=== PATIENT | female | born 1960 | race Two or more races ===

== ENCOUNTER 2017-05-02 18:20 | Inpatient (IN) | payer OTHER ==
--- NOTE | 2017-05-02 19:12 | PDOC ---
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 RBS 200 today. VSS - temp 98.2 Will order labs/ blood culture/ Xray foot/ 05/02/17 19:12
[2017-05-02 21:09] LABS: BASO % 0.2 % (0-2.0); EOS % 1.9 % (0-4.5); HEMATOCRIT 29.9 % (32.4-45.2); HEMOGLOBIN 10.2 GM/dL (10.7-15.3); LYMPH % 22.3 % (8-40); MEAN CELL VOLUME 88.3 fl (80-96); MEAN PLT VOLUME 8.6 fl (7.5-11.1); MONO % 7.8 % (3.8-10.2); NEUT % 67.8 % (42.8-82.8); PLATELET COUNT 245 K/MM3 (134-434); RBC 3.39 M/mm3 (3.60-5.2); RDW 13.4 % (11.6-15.6); WHITE BLOOD COUNT 11.1 K/mm3 (4.0-10.0)
[2017-05-02 21:44] LABS: URINE APPEARANCE SLCLOUDY; URINE BILIRUBIN NEGATIVE (NEGATIVE); URINE BLOOD NEGATIVE (NEGATIVE); URINE COLOR YELLOW; URINE GLUCOSE (UA) 3+ (NEGATIVE); URINE KETONE NEGATIVE (NEGATIVE); URINE NITRITE NEGATIVE (NEGATIVE); URINE PROTEIN NEGATIVE (NEGATIVE); URINE UROBILINOGEN NEGATIVE mg/dL (0.2-1.0)
[2017-05-02 21:45] LABS: URINE LEUK ESTERASE 3+ (NEGATIVE)
[2017-05-02 22:02] LABS: ALBUMIN 3.1 g/dl (3.4-5.0); ANION GAP 5 (8-16); BLOOD UREA NITROGEN 16 mg/dL (7-18); CALCIUM 8.6 mg/dL (8.5-10.1); CHLORIDE 100 mmol/L (98-107); CO2 31 mmol/L (21-32); CREATININE 0.6 mg/dL (0.55-1.02); GLUCOSE,RANDOM 224 mg/dL (74-106); POTASSIUM 4.1 mmol/L (3.5-5.1); SGOT/AST 8 U/L (15-37); SGPT/ALT 13 U/L (12-78); SODIUM 136 mmol/L (136-145)
[2017-05-02 22:03] LABS: ALK PHOS 92 U/L (45-117); BILIRUBIN,TOTAL 0.7 mg/dL (0.2-1.0); TOT PROT 7.1 g/dl (6.4-8.2)
[2017-05-02 22:54] LABS: EPI CELLS RARE /HPF (FEW); URINE MUCUS RARE
--- NOTE | 2017-05-03 00:18 | PDOC ---
History of Present Illness - General History Source: Patient Exam Limitations: No Limitations - History of Present Illness Initial Comments: 05/03/17 02:56 The patient is a 56 year old female, with a significant past medical history of IDDM, HTN, Genital Herpes who presents to the emergency department with L 2nd toe infection for the past week. Patient reports L toe began turning black with pain and swelling. Patient was admitted to [facility] for potential amputation 6 days ago however left AMA. Today, patient reports pain has worsened and radiates up into L thigh. Patient also notes her skin is dryer than usual around the area. Patient endorses fevers/chills and presents to the ED for further evaluation. Patient denies chest pain, headache or dizziness. Patient denies abdominal pain, nausea, vomit, diarrhea or constipation. Patient denies dysuria, frequency, urgency or hematuria. Patient denies sick contacts or recent travel. Allergies: Iodine contrast Vascular Surgeon @ [facility]: Heriberto Dey <Juany Rider - Last Filed: 05/03/17 02:56> - General History Source: Patient <Loli Coombs - Last Filed: 05/03/17 07:13> - General Chief Complaint: Wound Infection Stated Complaint: BLOOD IN URINE Time Seen by Provider: 05/02/17 19:06 Past History <Juany Rider - Last Filed: 05/03/17 02:56> - Past Medical History COPD: No Diabetes: Yes HTN: Yes Other medical history: genital herpez - Suicide/Smoking/Psychosocial Hx Smoking History: Never smoked Information on smoking cessation initiated: No Hx Alcohol Use: No Drug/Substance Use Hx: No Substance Use Type: None <Loli Coombs - Last Filed: 05/03/17 07:13> - Past Medical History Allergies/Adverse Reactions: Allergies Allergy/AdvReac Type Severity Reaction Status Date / Time Iodinated Contrast- Oral and Allergy Verified 05/02/17 19:06 IV Dye Review of Systems - Review of Systems Able to Perform ROS?: Yes Comments:: 05/03/17 02:56 CONSTITUTIONAL: +fever, chills Absent: no fatigue EYES: Absent: visual changes ENT: Absent: ear pain, no sore throat CARDIOVASCULAR: Absent: chest pain, no palpitations RESPIRATORY: Absent: cough, no SOB GI: Absent: abdominal pain, no nausea, no vomiting, no constipation, no diarrhea GENITOURINARY: Absent: dysuria, no frequency, no hematuria MUSCULOSKELETAL: +L leg infection. Absent: back pain, no arthralgia, no myalgia SKIN: Absent: rash NEURO: Absent: headache <Juany Rider - Last Filed: 05/03/17 02:56> *Physical Exam - Vital Signs Last Vital Signs Temp Pulse Resp BP Pulse Ox 98.2 F 85 18 132/90 100 05/02/17 19:07 05/02/17 19:07 05/02/17 19:07 05/02/17 19:07 05/02/17 19:07 <Juany Rider - Last Filed: 05/03/17 02:56> - Vital Signs Last Vital Signs Temp Pulse Resp BP Pulse Ox 98.2 F 85 18 132/90 100 05/02/17 19:07 05/02/17 19:07 05/02/17 19:07 05/02/17 19:07 05/02/17 19:07 - Physical Exam General Appearance: Yes: Nourished. No: Apparent Distress, Disheveled HEENT: positive: Normal Voice, Symmetrical Neck: negative: Tender, Trachea midline Respiratory/Chest: positive: Lungs Clear, Normal Breath Sounds Cardiovascular: positive: Regular Rhythm, Regular Rate Vascular Pulses: Dorsalis-Pedis (R): 2+, Doralis-Pedis (L): 2+ Gastrointestinal/Abdominal: positive: Soft. negative: Tender Musculoskeletal: positive: Normal Inspection, CVA Tenderness Extremity: positive: Other (+ linear healing scar to medial aspect of L leg, + tiny puncture site to R groin which is clean dry and without erythema/exudate) Integumentary: positive: Normal Color, Dry, Warm. negative: Cyanotic Neurologic: positive: cloth examiner II-XII NML intact, Fully Oriented, Alert <Loli Coombs - Last Filed: 05/03/17 07:13> ED Treatment Course - LABORATORY CBC & Chemistry Diagram: 05/02/17 20:53 05/02/17 20:53 - ADDITIONAL ORDERS Additional order review: Laboratory Results 05/02/17 05/02/17 21:01 20:53 Sodium 136 Potassium 4.1 Chloride 100 Carbon Dioxide 31 Anion Gap 5 L BUN 16 Creatinine 0.6 Creat Clearance w eGFR > 60 Random Glucose 224 H Calcium 8.6 Total Bilirubin 0.7 AST 8 L ALT 13 Alkaline Phosphatase 92 Total Protein 7.1 Albumin 3.1 L Urine Color Yellow Urine Appearance Slcloudy Urine pH 5.0 Ur Specific [place] 1.018 Urine Protein Negative Urine Glucose (UA) 3+ H Urine Ketones Negative Urine Blood Negative Urine Nitrite Negative Urine Bilirubin Negative Urine Urobilinogen Negative Ur Leukocyte Esterase 3+ H Urine WBC (Auto) 95 Urine RBC (Auto) 9 Ur Epithelial Cells Rare Urine Mucus Rare 05/02/17 20:53 RBC 3.39 L MCV 88.3 MCHC 34.0 RDW 13.4 MPV 8.6 Neutrophils % 67.8 Lymphocytes % 22.3 Monocytes % 7.8 Eosinophils % 1.9 Basophils % 0.2 <Juany Rider - Last Filed: 05/03/17 02:56> - LABORATORY CBC & Chemistry Diagram: 05/02/17 20:53 05/02/17 20:53 - ADDITIONAL ORDERS Additional order review: Laboratory Results 05/02/17 05/02/17 21:01 20:53 Sodium 136 Potassium 4.1 Chloride 100 Carbon Dioxide 31 Anion Gap 5 L BUN 16 Creatinine 0.6 Creat Clearance w eGFR > 60 Random Glucose 224 H Calcium 8.6 Total Bilirubin 0.7 AST 8 L ALT 13 Alkaline Phosphatase 92 Total Protein 7.1 Albumin 3.1 L Urine Color Yellow Urine Appearance Slcloudy Urine pH 5.0 Ur Specific [place] 1.018 Urine Protein Negative Urine Glucose (UA) 3+ H Urine Ketones Negative Urine Blood Negative Urine Nitrite Negative Urine Bilirubin Negative Urine Urobilinogen Negative Ur Leukocyte Esterase 3+ H Urine WBC (Auto) 95 Urine RBC (Auto) 9 Ur Epithelial Cells Rare Urine Mucus Rare 05/02/17 20:53 RBC 3.39 L MCV 88.3 MCHC 34.0 RDW 13.4 MPV 8.6 Neutrophils % 67.8 Lymphocytes % 22.3 Monocytes % 7.8 Eosinophils % 1.9 Basophils % 0.2 <Loli Coombs - Last Filed: 05/03/17 07:13> Medical Decision Making - Medical Decision Making 05/03/17 01:53 Pt is vasculopath, recent bypass surgery of LLE (months ago but had an "extension" 5 days ago whereby she underwent R groin access), hx of great toe amputation on L foot presenting with dry gangrene to her 2nd digit. AMA'ed from [facility] yesterday because one of the surgeons stated that he was going to cut her foot or leg off and she panicked and left the hospital. Has had worsening pain in the foot over the past 2 days. +subjective fever/chills, nausea. No vomiting , abd pain. Will admit, vasc consult inpatient. 05/03/17 07:[address] Hawkins - will admit to [facility] for gangrene/vasc consult. <Loli Coombs - Last Filed: 05/03/17 07:13> *DC/Admit/Observation/Transfer - Attestations Scribe Attestion: 05/03/17 02:56 Documentation prepared by Juany Rider, acting as medical pathology teacher for Loli Coombs DO <Juany Rider - Last Filed: 05/03/17 02:56> - Discharge Dispostion Admit: Yes <Loli Coombs - Last Filed: 05/03/17 07:13> Diagnosis at time of Disposition: Gangrene
--- NOTE | 2017-05-03 07:58 | HP ---
CHIEF COMPLAINT: "My toe is black" PCP: None, nachodemetrius like to be referred to clinic Vascular Surgeon @ [facility]: Heriberto Dey HISTORY OF PRESENT ILLNESS: This is a 56 yo F, with PMH of severe PAD s/p bypass and recent stents, possible LLE DVT, IDDM, HTN and genital herpes, who presents due to L 2nd toe infection and gangrene x 1 mo. She initially had a LLE bypass (possibly fem-pop based on scar) and 1st L toe amputation at [facility] in January but was admitted there a week ago due to L 2nd toe dry gangrene. On tue she underwent perc intervention, likely with stent placement, which restored circulation to L foot. There was plan for amputation of toe but patient did not like the surgeon so she left AMA. While at [facility] she was on heparin gtt. Over the pat 24 hr at home she has only taken an aspirin 325. Since her PCI the gangrene has not progressed and the surrounding tissue on foot feels better (less pain, less numbness, less redness, still edematous). She reports subjective f/c as well as pelvic and RUQ pain, especially after meals for the past 24 hrs. Of note, she is allergic to iodine contrast (hives) and state that prior to her PCI she received prednisone and benadryl, which seemed to prevent a reaction but caused hyperglycemia. She has not been seen by a PCP in years since visiting one in [place], was referred to a doctor by [facility] but has not followed up yet. She has not had a!c checked in years but states her morning sugars are usually in the 100's unless she is on prednisone She denies CP, h/a, sob, cough, palpitations, n/v, diarrhea. ER course was notable for: (1)labs (2)foot x ray Recent Travel: denies PAST MEDICAL HISTORY: as above PAST SURGICAL HISTORY: as above, uterine biopsy Social History: lives with sister, not moving to [place] any time soon Smoking: heavy past smoker 40 pack yr Alcohol: 2 drinks/w Drugs: denies Family History: DM, HTN, HLD, CAD, uterine CA Allergies Iodinated Contrast- Oral and IV Dye Allergy (Verified 05/02/17 19:06) HOME MEDICATIONS: REVIEW OF SYSTEMS CONSTITUTIONAL: Absent: diaphoresis, generalized weakness, loss of appetite, weight change HEENT: Absent: rhinorrhea, nasal congestion, throat pain CARDIOVASCULAR: Absent: chest pain, syncope, palpitations, irregular heart rate, lightheadedness RESPIRATORY: Absent: cough, shortness of breath, hemoptysis GASTROINTESTINAL: Absent:abdominal distension, nausea, vomiting, diarrhea, constipation, melena, hematochezia GENITOURINARY: Absent: dysuria, flank pain MUSCULOSKELETAL: Absent: back pain, neck pain SKIN: Absent: rash, itching, pallor HEMATOLOGIC/IMMUNOLOGIC: Absent: easy bleeding, easy bruising, frequent infections ENDOCRINE: Absent: unexplained weight gain, unexplained weight loss NEUROLOGIC: Absent: headache, focal weakness or paresthesias PSYCHIATRIC: Absent: anxiety, depression PHYSICAL EXAMINATION Vital Signs - 24 hr 05/02/17 19:07 Temperature 98.2 F Pulse Rate 85 Respiratory 18 Rate Blood Pressure 132/90 O2 Sat by Pulse 100 Oximetry (%) GENERAL: Awake, alert, and fully oriented, in no acute distress. HEAD: Normal with no signs of trauma. EYES: Pupils equal, round and reactive to light, extraocular movements intact, sclera anicteric, conjunctiva clear. No lid lag. EARS, NOSE, THROAT: Moist mucous membranes. NECK: supple no bruits LUNGS: Breath sounds equal, clear to auscultation bilaterally. HEART: Regular rate and rhythm, normal S1 and S2 grade II systolic murmur ABDOMEN: Soft, moderately tender suprapubic and RUW, + murphys, not distended, reduced bowel sounds, no guarding, no mass, no inguinal bruising, R inguinal swelling, healed perc incision site. No bruits MUSCULOSKELETAL: No CVA tenderness. UPPER EXTREMITIES: 2+ pulses, warm, well-perfused. No cyanosis. No clubbing. No peripheral edema. LOWER EXTREMITIES: RLE 2+ DP, warm, well-perfused. No calf tenderness. No peripheral edema. LLE 1+ DP, s/o 1st toe amputation, 2nd toe dry, black, cool, no drainage or odor. Foot is warm, well-perfused 1+ edema, tender to palpation up to distal thigh. Medial healed surgical scar from proximal thigh to proximal calf NEUROLOGICAL: Cranial nerves II-XII grossly intact. Normal speech. PSYCHIATRIC: Cooperative. Good eye contact. Appropriate mood and affect. SKIN: Warm, dry Laboratory Results - last 24 hr 05/02/17 05/02/17 05/02/17 20:53 20:53 21:01 WBC 11.1 H RBC 3.39 L Hgb 10.2 L Hct 29.9 L MCV 88.3 MCH 30.0 MCHC 34.0 RDW 13.4 Plt Count 245 MPV 8.6 Neutrophils % 67.8 Lymphocytes % 22.3 Monocytes % 7.8 Eosinophils % 1.9 Basophils % 0.2 Sodium 136 Potassium 4.1 Chloride 100 Carbon Dioxide 31 Anion Gap 5 L BUN 16 Creatinine 0.6 Creat Clearance w eGFR > 60 Random Glucose 224 H Calcium 8.6 Total Bilirubin 0.7 AST 8 L ALT 13 Alkaline Phosphatase 92 Total Protein 7.1 Albumin 3.1 L Urine Color Yellow Urine Appearance Slcloudy Urine pH 5.0 Ur Specific [place] 1.018 Urine Protein Negative Urine Glucose (UA) 3+ H Urine Ketones Negative Urine Blood Negative Urine Nitrite Negative Urine Bilirubin Negative Urine Urobilinogen Negative Ur Leukocyte Esterase 3+ H Urine WBC (Auto) 95 Urine RBC (Auto) 9 Ur Epithelial Cells Rare Urine Mucus Rare ASSESSMENT/PLAN: This is a 56 yo F, with PMH of severe PAD s/p bypass January, LLE stents this Wed at [facility], possible LLE DVT, IDDM, HTN and genital herpes, who presents due to L 2nd toe infection and gangrene x 1 mo. PAD with L 2nd toe dry gangrene -s/p bypass DEC (fem/pop crista) and likely stents on Tue at [facility]; circuylation restored 1+ DP and symptomatic improvement -toe not salvageable, requires amputation; f/u vascular -no evidence of acute tissue infection, mild leukocytosis 11 w/o left shift likely inflammatory; gave prophylactic Vanc/cefepime dose -give Asa, plavix and start Hep gtt for now pending LE imaging -f/u LLE x rays, arterial and venous US -coags, type/screen -NPO after midnight for possible OR -if patient needs angio, will give Prednisone+benadryl before iodine contrast administration RUQ pain -may have ischemic component or may be extension of tissue swelling/tenderness from R perc done on Wed -f/u RUQ US IDDM -hold po agents -BGM ACHS, ISS -A1c HTN -resume coreg, norvasc FEN -NS @ 75 -lytes stable -diabetic diet, npo after midnight -on hep -adm m/s Problem List - Problem (1) PAD (peripheral artery disease) Code(s): I73.9 - PERIPHERAL VASCULAR DISEASE, UNSPECIFIED (2) HTN (hypertension) Code(s): I10 - ESSENTIAL (PRIMARY) HYPERTENSION (3) IDDM (insulin dependent diabetes mellitus) Code(s): E11.9 - TYPE 2 DIABETES MELLITUS WITHOUT COMPLICATIONS; Z79.4 - RETIREMENT (CURRENT) USE OF INSULIN (4) Gangrene of toe of left foot Code(s): I96 - GANGRENE, NOT ELSEWHERE CLASSIFIED (5) Ischemic foot pain at rest Code(s): I73.9 - PERIPHERAL VASCULAR DISEASE, UNSPECIFIED (6) Gangrene Code(s): I96 - GANGRENE, NOT ELSEWHERE CLASSIFIED Visit type - Emergency Visit Emergency Visit: Yes ED Registration Date: 05/03/17 Care time: The patient presented to the Emergency Department on the above date and was hospitalized for further evaluation of their emergent condition. - New Patient This patient is new to me today: Yes Date on this admission: 05/03/17 - Critical Care Critical Care patient: No Hospitalist Screening - Colonoscopy Questionnaire Colonoscopy Questionnaire: Colonoscopy Questionnaire - Patient: 50 - 75 years old and never had a screening colonoscopy: Yes History of colon or rectal polyps, or CA: No History of IBD, Crohn's disease or UC: No History of abdominal radiation therapy as a child: No - Relative: 1 with colon or rectal CA, or polyps at age 60 or younger: No Colon or rectal CA diagnosed at age 45 or younger: No Multiple relatives with colon or rectal CA: No - Outcome: Screening Result: Positive Screen
[2017-05-03] MEDS ORDERED: VANCOMYCIN 1,250 MG in DEXTROSE 5%-WATER - 250 ML IVPB ONE (08:29)
[2017-05-03] MEDS ORDERED: CEFEPIME 2 GM in DEXTROSE 5%-WATER - 100 ML IVPB ONE (08:30)
[2017-05-03] MEDS ORDERED: oxyCODONE HCL 5 MG TABLET PO PRN (08:31)
[2017-05-03] MEDS ORDERED: HEPARIN NA (PORCINE) 5,000 UNITS/ML 1ML VIAL IVPUSH PRN (08:38)
[2017-05-03] MEDS ORDERED: VANCOMYCIN 1,250 MG in SODIUM CHLORIDE 250 ML IVPB ONE (08:43)
[2017-05-03] MEDS: SODIUM CHLORIDE 1,000 ML IV SCH (09:20)
[2017-05-03] MEDS ORDERED: ASPIRIN 81 MG CHEWABLE TABLETS ONE (11:51)
[2017-05-03] MEDS ORDERED: CARVEDILOL 3.125 MG TABLET (FP) ONE (11:52)
[2017-05-03] MEDS ORDERED: amLODIPine BESYLATE 5 MG TABLET (FP) ONE (11:52)
[2017-05-03] MEDS ORDERED: CLOPIDOGREL BISULFATE 75 MG TABLET (FP) ONE (11:53)
[2017-05-03] MEDS ORDERED: HEPARIN INFUSION - 25,000 UNITS/500 ML INFUS.BAG IVPB ONE (11:53)
[2017-05-03] MEDS ORDERED: HEPARIN NA (PORCINE) 5,000 UNITS/ML 1ML VIAL ONE (11:53)
[2017-05-03] MEDS: HEPARIN - 25,000 UNIT in SODIUM CHLORIDE 495 ML IV SCH (12:30)
[2017-05-03] MEDS: HEPARIN NA (PORCINE) 5,000 UNITS/ML 1ML VIAL IVPUSH PRN (12:30)
[2017-05-03] MEDS: amLODIPine BESYLATE 5 MG TABLET (FP) PO SCH (12:31)
[2017-05-03] MEDS: CLOPIDOGREL BISULFATE 75 MG TABLET (FP) PO SCH (12:31)
[2017-05-03] MEDS: ASPIRIN 81 MG CHEWABLE TABLETS PO SCH (12:31)
[2017-05-03] MEDS: CARVEDILOL 6.25 MG TABLET (FP) PO SCH ×2 (12:31→21:59)
--- NOTE | 2017-05-03 13:41 | PN ---
Teaching Attending Note Name of Resident: Michelle Luna ATTENDING PHYSICIAN STATEMENT I saw and evaluated the patient. I reviewed the resident's note and discussed the case with the resident. I agree with the resident's findings and plan as documented. SUBJECTIVE: This is a 56 year old woman with a history of PAD with lower extremity bypass and stents, IDDM, HTN, genital herpes who comes to the ED complaining of painful gangrenous left 2nd toe. She had bypass of her left leg and amputation of her left 1st toe 01/30 at [facility]. She developed pain in her left foot with gangrene of her left 2nd toe and was admitted at [facility] last week. She says she had "extensions" put in her left leg and her left foot improved. Amputation of the left 2nd toe was recommended and she left AMA yesterday. She also reports RUQ abdominal pain unrelated to meals which radiates to her left side. OBJECTIVE: Vital Signs Period Temp Pulse Resp BP Sys/Zhang Pulse Ox Last 24 Hr 98.2 F 82-85 18-20 126-132/68-90 100-100 HEART: S1S2, RRR LUNGS: Clear ABDOMEN: Soft, non-distended, (+) RUQ and epigastric tenderness, normal BS EXTREMITIES: s/p amputation of left 1st toe, left 2nd toe gangrenous, left 3rd- 5th toes erythematous, weak left DP pulse Laboratory Tests 05/02/17 05/02/17 05/02/17 20:53 20:53 21:01 WBC 11.1 H RBC 3.39 L Hgb 10.2 L Hct 29.9 L MCV 88.3 MCH 30.0 MCHC 34.0 RDW 13.4 Plt Count 245 MPV 8.6 Neutrophils % 67.8 Lymphocytes % 22.3 Monocytes % 7.8 Eosinophils % 1.9 Basophils % 0.2 Sodium 136 Potassium 4.1 Chloride 100 Carbon Dioxide 31 Anion Gap 5 L BUN 16 Creatinine 0.6 Creat Clearance w eGFR > 60 Random Glucose 224 H Calcium 8.6 Total Bilirubin 0.7 AST 8 L ALT 13 Alkaline Phosphatase 92 Total Protein 7.1 Albumin 3.1 L Urine Color Yellow Urine Appearance Slcloudy Urine pH 5.0 Ur Specific [place] 1.018 Urine Protein Negative Urine Glucose (UA) 3+ H Urine Ketones Negative Urine Blood Negative Urine Nitrite Negative Urine Bilirubin Negative Urine Urobilinogen Negative Ur Leukocyte Esterase 3+ H Urine WBC (Auto) 95 Urine RBC (Auto) 9 Ur Epithelial Cells Rare Urine Mucus Rare Home Medications Medication Instructions Recorded Amlodipine Besylate [Norvasc -] 5 mg PO DAILY 05/03/17 Aspirin [ASA -] 81 mg PO DAILY 05/03/17 Carvedilol [Coreg] 6.25 mg PO BID 05/03/17 Glipizide 5 mg PO DAILY 05/03/17 Insulin (Novolog) [Novolog -] 8 unit SQ AM 05/03/17 ASSESSMENT AND PLAN: This is a 56 year old woman with a history of PAD with lower extremity bypass and stents, IDDM, HTN, genital herpes who presents to the ED complaining of painful gangrenous left 2nd toe. 1. Gangrene of left 2nd toe secondary to PAD with history of left 1st toe amputation, LLE bypass in 01/2017 - Heparin IV drip started - Aspirin, Plavix restarted - Vascular studies - Vascular surgery consult 2. RUQ and epigastric abdominal pain - Gall bladder US 3. IDDM - Hold Glipizide - Fingersticks with Novolog sliding scale - Check HgbA1c 4. HTN - Continue Coreg, Norvasc 5. Anemia, likely secondary to chronic illness - Monitor hemoglobin
[2017-05-03] MEDS ORDERED: INSULIN REGULAR HUMAN 100 UNITS/ML *VIAL ONE (14:06)
[2017-05-03 14:57] VITALS: BMI 29.2
--- NOTE | 2017-05-03 16:29 | EKG ---
Test Reason : Blood Pressure : / mmHG Vent. Rate : 086 BPM Atrial Rate : 086 BPM P-R Int : 138 ms QRS Dur : 076 ms QT Int : 358 ms P-R-T Axes : 003 002 022 degrees QTc Int : 428 ms NORMAL SINUS RHYTHM NORMAL ECG NO PREVIOUS ECGS AVAILABLE Confirmed by Brett Gray ([id number]) on 05/03/2017 4:28:43 PM Referred By: Confirmed By:Brett Gray
[2017-05-03] MEDS: INSULIN SLIDING SCALE (NOVOLOG) 1 VIAL SQ SCH ×2 (16:43→21:58)
--- NOTE | 2017-05-03 20:10 | CONSULT ---
<CoronaBetzy - Last Filed: 05/04/17 08:21> - Consultation REQUESTING PROVIDER: CONSULT REQUEST: We have been asked to surgically evaluate this patient for left lower ext wounds. PCP:Dg Licona HISTORY OF PRESENT ILLNESS: The patient has a h/o IDDM, LLE bypass with great toe amp in December at [facility] for a chronic ulcer to her left toe. She returned to their facility last week with second left toe discoloration. She had several stents placed into her left leg on thrusday of last week and was told that she needed an amputation on her left leg. The patient states that she signed out AMA from that facility. She came to [place] for increasing pain to her left leg. While at the other hospital she was taking plavix and aspirin. Overall, her foot is less tender. She describes better sensation to the bottom of her foot. She does have occasional shooting pain to her foot. PMHx: PAD, DM, HTN, IDDM No history of blood clots/clotting/bleeding disorders in her family. PSHx: s/p left fem PT bypass and great toe amp 12/31 Social HX: quit smoking 20 years ago Home Medications Medication Instructions Recorded Amlodipine Besylate [Norvasc -] 5 mg PO DAILY 05/03/17 Aspirin [ASA -] 81 mg PO DAILY 05/03/17 Carvedilol [Coreg] 6.25 mg PO BID 05/03/17 Glipizide 5 mg PO DAILY 05/03/17 Insulin (Novolog) [Novolog -] 8 unit SQ AM 05/03/17 Allergies Allergy/AdvReac Type Severity Reaction Status Date / Time Iodinated Contrast- Oral and Allergy Verified 05/02/17 19:06 IV Dye REVIEW OF SYSTEMS: CONSTITUTIONAL: Present: fever, chills open admission CARDIOVASCULAR: Absent: chest pain, syncope, palpitations RESPIRATORY: Absent: cough, shortness of breath. GASTROINTESTINAL: Present: abdominal pain/RUQ HEMATOLOGIC/IMMUNOLOGIC: Absent: easy bleeding, easy bruising, lymphadenopathy NEUROLOGIC: Present: paresthesias PHYSICAL EXAM: GENERAL: Awake, alert, and fully oriented, in no acute distress. LUNGS: Clear to auscultation bilat anteriorly. No wheezes, and no crackles. No accessory muscle use. HEART: Regular rate and rhythm. No murmurs ABDOMEN: Soft, nontender, not distended. LOWER EXTREMITIES: 2+ pulses, warm, well-perfused. No calf tenderness. No peripheral edema. RLE: +2 DP/PT pulse warm to touch, no ulcer noted LLE: +2 DP pulse. DP/PT signal with doppler/warm to touch. great toe amp site healed, left toe with dry gangrene to base of metatarsal. 3/4/5 digits nonischemia slight erythema. Healed scar to left medial ankle. Vital Signs Temperature 97.8 F 05/03/17 14:49 Pulse Rate 73 05/03/17 14:49 Respiratory Rate 18 05/03/17 14:49 Blood Pressure 101/59 05/03/17 14:49 O2 Sat by Pulse Oximetry (%) 100 05/03/17 14:49 Lab Results WBC 11.1 K/mm3 (4.0-10.0) H 05/02/17 20:53 RBC 3.39 M/mm3 (3.60-5.2) L 05/02/17 20:53 Hgb 10.2 GM/dL (10.7-15.3) L 05/02/17 20:53 Hct 29.9 % (32.4-45.2) L 05/02/17 20:53 MCV 88.3 fl (80-96) 05/02/17 20:53 MCHC 34.0 g/dl (32.0-36.0) 05/02/17 20:53 RDW 13.4 % (11.6-15.6) 05/02/17 20:53 Plt Count 245 K/MM3 (134-434) 05/02/17 20:53 Sodium 136 mmol/L (136-145) 05/02/17 20:53 Potassium 4.1 mmol/L (3.5-5.1) 05/02/17 20:53 Chloride 100 mmol/L (98-107) 05/02/17 20:53 Carbon Dioxide 31 mmol/L (21-32) 05/02/17 20:53 Anion Gap 5 (8-16) L 05/02/17 20:53 BUN 16 mg/dL (7-18) 05/02/17 20:53 Creatinine 0.6 mg/dL (0.55-1.02) 05/02/17 20:53 Random Glucose 224 mg/dL (74-106) H 05/02/17 20:53 Calcium 8.6 mg/dL (8.5-10.1) 05/02/17 20:53 Duplex: negative for DVT Arterial duplex: stents to left [employer]/SFA with distal stenosis in distal SFA( monphasic waveform) Problem List - Problems (1) Gangrene of toe of left foot Assessment/Plan: Currently pt on IV heparin without any evidence of ischemia/foot warm with distal palpable pulses. May discontinue IV abx heparin and begin aspirin/ plavix. Recommend Podiatry consult for left 2nd toe gangrene, possible amputation. Continue IV abx as per the medical team Recommend to obtain previous vascular surgery operative reports Case D/w Dr. Gonsalez Code(s): I96 - GANGRENE, NOT ELSEWHERE CLASSIFIED Visit type - Case Type Case Type: ED Admission - Emergency Emergency Visit: Yes ED Registration Date: 05/03/17 Care time: The patient presented to the Emergency Department on the above date and was hospitalized for further evaluation of their emergent condition. - New patient This patient is new to me today: Yes Date on this admission: 05/03/17 <Rah Gonsalez - Last Filed: 05/04/17 21:42> - Consultation REQUESTING PROVIDER: CONSULT REQUEST: We have been asked to surgically evaluate this patient for ( specify). PCP:Dg Licona HISTORY OF PRESENT ILLNESS: PMHx: PSHx: Home Medications Medication Instructions Recorded Amlodipine Besylate [Norvasc -] 5 mg PO DAILY 05/03/17 Aspirin [ASA -] 81 mg PO DAILY 05/03/17 Carvedilol [Coreg] 6.25 mg PO BID 05/03/17 Glipizide 5 mg PO DAILY 05/03/17 Insulin (Novolog) [Novolog -] 8 unit SQ AM 05/03/17 Clopidogrel Bisulfate [Plavix] 75 mg PO DAILY 05/04/17 Allergies Allergy/AdvReac Type Severity Reaction Status Date / Time Iodinated Contrast- Oral and Allergy Verified 05/02/17 19:06 IV Dye REVIEW OF SYSTEMS: CONSTITUTIONAL: Absent: fever, chills, diaphoresis, generalized weakness, malaise, loss of appetite, weight change CARDIOVASCULAR: Absent: chest pain, syncope, palpitations, irregular heart rate, lightheadedness , peripheral edema RESPIRATORY: Absent: cough, shortness of breath, dyspnea with exertion, wheezing, stridor, hemoptysis GASTROINTESTINAL: Absent: abdominal pain, abdominal distension, nausea, vomiting, diarrhea, constipation, melena, hematochezia GENITOURINARY: Absent: dysuria, frequency, urgency, hesitancy, hematuria, flank pain, genital pain MUSCULOSKELETAL: Absent: myalgia, arthralgia, joint swelling, back pain, neck pain SKIN: Absent: rash, itching, pallor HEMATOLOGIC/IMMUNOLOGIC: Absent: easy bleeding, easy bruising, lymphadenopathy NEUROLOGIC: Absent: headache, focal weakness, paresthesias, dizziness, unsteady gait, seizure, mental status changes, bladder or bowel incontinence PSYCHIATRIC: Absent: anxiety, depression, suicidal or homicidal ideation, hallucinations. PHYSICAL EXAM: GENERAL: Awake, alert, and fully oriented, in no acute distress. HEAD: Normal with no signs of trauma. EYES: PERRL, sclera anicteric, conjunctiva clear. NECK: Normal ROM, supple without lymphadenopathy, JVD, or masses. LUNGS: Clear to auscultation bilat anteriorly. No wheezes, and no crackles. No accessory muscle use. HEART: Regular rate and rhythm. No murmurs ABDOMEN: Soft, nontender, not distended, normoactive bowel sounds, no guarding, no rebound, no masses. No organomegaly. MUSCULOSKELETAL: Normal ROM at all joints. No bony deformities or tenderness. No CVA tenderness. UPPER EXTREMITIES: 2+ pulses, warm, well-perfused. No cyanosis. Cap refill <2 seconds. No peripheral edema. LOWER EXTREMITIES: 2+ pulses, warm, well-perfused. No calf tenderness. No peripheral edema. NEUROLOGICAL: Normal speech, gait not observed. PSYCH: Cooperative. Good eye contact. Appropriate mood and affect. SKIN: Warm, dry, normal turgor, no rashes or lesions noted. Vital Signs Temperature 97.7 F 05/04/17 16:51 Pulse Rate 75 05/04/17 16:51 Respiratory Rate 20 05/04/17 16:51 Blood Pressure 115/60 05/04/17 16:51 O2 Sat by Pulse Oximetry (%) 100 05/04/17 09:00 Lab Results WBC 8.8 K/mm3 (4.0-10.0) 05/04/17 07:55 RBC 2.96 M/mm3 (3.60-5.2) L 05/04/17 07:55 Hgb 9.0 GM/dL (10.7-15.3) L D 05/04/17 07:55 Hct 26.2 % (32.4-45.2) L 05/04/17 07:55 MCV 88.7 fl (80-96) 05/04/17 07:55 MCHC 34.3 g/dl (32.0-36.0) 05/04/17 07:55 RDW 12.8 % (11.6-15.6) 05/04/17 07:55 Plt Count 208 K/MM3 (134-434) 05/04/17 07:55 Sodium 141 mmol/L (136-145) 05/04/17 07:55 Potassium 4.0 mmol/L (3.5-5.1) 05/04/17 07:55 Chloride 104 mmol/L (98-107) 05/04/17 07:55 Carbon Dioxide 28 mmol/L (21-32) 05/04/17 07:55 Anion Gap 9 (8-16) 05/04/17 07:55 BUN 12 mg/dL (7-18) 05/04/17 07:55 Creatinine 0.6 mg/dL (0.55-1.02) 05/04/17 07:55 Random Glucose 194 mg/dL (74-106) H 05/04/17 07:55 Calcium 8.7 mg/dL (8.5-10.1) 05/04/17 07:55 Blood Type O POSITIVE 05/04/17 10:20 Antibody Screen Negative 05/04/17 07:55 INR 1.13 (0.82-1.09) 05/04/17 07:55 History reviewed and patient examined. Feet are warm with ischemic changes in left 2nd toe and healed 1st toe amputation wound. Arterial study show distal arterial flow in intact. It appears that there is adequate flow to heal an amputation of the 2nd toe if necessary. No additional vascular intervention is needed at this time.
[2017-05-03] MEDS: ACETAMINOPHEN 325 MG TABLET (FP) PO PRN (22:00)
[2017-05-04] MEDS: INSULIN SLIDING SCALE (NOVOLOG) 1 VIAL SQ SCH ×5 (06:20→22:53)
[2017-05-04 08:51] LABS: BASO % 0.6 % (0-2.0); EOS % 3.9 % (0-4.5); HEMATOCRIT 26.2 % (32.4-45.2); LYMPH % 28.5 % (8-40); MCH 30.4 pg (25.7-33.7); MCHC 34.3 g/dl (32.0-36.0); MEAN CELL VOLUME 88.7 fl (80-96); MEAN PLT VOLUME 8.9 fl (7.5-11.1); MONO % 7.4 % (3.8-10.2); NEUT % 59.6 % (42.8-82.8); PLATELET COUNT 208 K/MM3 (134-434); RBC 2.96 M/mm3 (3.60-5.2); RDW 12.8 % (11.6-15.6); WHITE BLOOD COUNT 8.8 K/mm3 (4.0-10.0)
[2017-05-04 08:58] LABS: INR 1.13 (0.82-1.09); PROTHROMBIN TIME (PATIENT) 12.8 SEC (9.98-11.88)
[2017-05-04 09:31] LABS: ANION GAP 9 (8-16); BLOOD UREA NITROGEN 12 mg/dL (7-18); CALCIUM 8.7 mg/dL (8.5-10.1); CHLORIDE 104 mmol/L (98-107); CO2 28 mmol/L (21-32); CREATININE 0.6 mg/dL (0.55-1.02); GLUCOSE,RANDOM 194 mg/dL (74-106); MAGNESIUM 2.4 mg/dL (1.8-2.4); PHOSPHOROUS 3.2 mg/dL (2.5-4.9); SODIUM 141 mmol/L (136-145)
--- NOTE | 2017-05-04 09:48 | CONSULT ---
Consult - text type - Consultation Consultation Note: Podiatry COnsultation: 56 year old DM, PVD F presents with gangrenous 2nd toe left foot. Patient is s/ p LLE Bypass December 2016 and subsequently had angio with stent on bypass performed on Tuesday at [facility]. Patient was scheduled to have second toe amputation this Tuesday at [facility], however left AMA because she "did not like the doctor". She denies F/V/N/C/SOB/CP. Afebrile, VSS. PMHx: IDDM, HTN, genital herpes, possible DVT LLE, severe PAD s/p LLE bypass and stent Meds: noted ALL: contrast CHERELLE: L foot: palpable DP pulse, non-palpable PT pulse, CFT absent to second digit. Healed hallux amputation stump. Gangrenous, dry changes distal 1/2 of second digit. No purulent drainage, no fluctuance, no ascending cellulitis, no signs of active infection. Significant tenderness to palpation. WBC: 8.8 Arterial Duplex: patent stent LLE, upstream stenosis distal SFA L foot XR: no evidence of osteo, gas Imp: 56 year old DM, PVD F with L 2nd digit gangrene 1. Discussed treatment options with patient. She is still thinking about potential options. After discussing with patient I have recommended f/u with her doctors at [facility] as she has a long history with them. She is unsure at this time. 2. Vascular f/u 3. Discussed the potential for poor wound healing given her PVD and she may consent to transmetatarsal amputation. 4. Thank you for the consult. Regine Keene DPM
[2017-05-04 10:28] LABS: CHOLESTEROL 78 mg/dL (50-200); HDL CHOLESTEROL 49 mg/dl (29-89); TRIGLYCERIDES 155 mg/dL (35-160)
[2017-05-04] MEDS: SODIUM CHLORIDE 1,000 ML IV SCH (11:09)
[2017-05-04] MEDS: HEPARIN - 25,000 UNIT in SODIUM CHLORIDE 495 ML IV SCH (11:13)
[2017-05-04] MEDS: CARVEDILOL 6.25 MG TABLET (FP) PO SCH ×2 (11:16→22:51)
[2017-05-04] MEDS: ASPIRIN 81 MG CHEWABLE TABLETS PO SCH (11:16)
[2017-05-04] MEDS: CLOPIDOGREL BISULFATE 75 MG TABLET (FP) PO SCH (11:17)
[2017-05-04] MEDS: amLODIPine BESYLATE 5 MG TABLET (FP) PO SCH (11:17)
--- NOTE | 2017-05-04 15:37 | PN ---
Teaching Attending Note Name of Resident: Maksim Roman ATTENDING PHYSICIAN STATEMENT I saw and evaluated the patient. I reviewed the resident's note and discussed the case with the resident. I agree with the resident's findings and plan as documented. SUBJECTIVE: No fever or chills, pain in L 2nd toe. has nausea . with epigastric abd pain after she vomited OBJECTIVE: NAD . CV: RRR, no MRG Lungs: CTAB Abd: sfot, Minimal tenderness in epigastric area , no rebound tenderness or guarding. Ext: L leg circumference > R . old surgical scar on medial knee , lower thigh and upper leg on L side L big toe amputation , L 2nd toe with black discoloration , no surrounding erythema , no discharge DP 2+ b/l , PT 1+ b/l ASSESSMENT AND PLAN: 56 y/o lady with h/o DM , HTN, PVD s/p bipas 12/31, and recent stent placement a week prior to presentation in [facility], also s/p L big toe amputation who presented straight to [facility] after leaving AMA form [facility]. she has L second toe gangrene 1- L 2nd toe gangrene: Arterial US with significant stenosis in distal SFA . - cont heparin gtt for now - appreciate Dr. Keene's Recs, plan for transmetatarsal amputaitonif pt agrees. - there is no evidence of surrounding cellulitis , no purulent discharge . hold off Abx - was on ASA and plavix fater her stent. hold for surgery and cont heparin gtt - after procedure , will need vascular Recs on choice of Antiplatelet/AC - will obtain records from [facility] - start lipitor 2- ABd pain and nausea/vomiting: - check lipase - abd US with no etiology - zofran 3- DM : SSI for now , hold glipizide 4- HTN: Norvasc and coreg Dispo: HLOC
[2017-05-04] MEDS ORDERED: ONDANSETRON 4 MG/2 ML VIAL IVPUSH PRN (16:55)
--- NOTE | 2017-05-04 17:13 | PN ---
Physical Exam: SUBJECTIVE: Patient seen and examined No acute events overnight. Complaining of nausea today with suprapubic pain. OBJECTIVE: Vital Signs Period Temp Pulse Resp BP Sys/Zhang Pulse Ox Last 24 Hr 97.7 F-98.1 F 71-82 18-20 107-121/57-62 100 GENERAL: Awake, alert, and fully oriented, in no acute distress. HEAD: Normal with no signs of trauma. EYES: Pupils equal, round and reactive to light, extraocular movements intact, sclera anicteric, conjunctiva clear. No lid lag. EARS, NOSE, THROAT: Moist mucous membranes. NECK: supple, no jvd LUNGS: Breath sounds equal, clear to auscultation bilaterally. HEART: Regular rate and rhythm, normal S1 and S2, no murmurs, rubs, or gallops ABDOMEN: Soft, +suprapubic tenderness, nondistended, +bs, no masses or organomegaly MUSCULOSKELETAL: No CVA tenderness. UPPER EXTREMITIES: 2+ pulses, warm, well-perfused. No cyanosis. No clubbing. No peripheral edema. LOWER EXTREMITIES: RLE 2+ DP, warm, well-perfused. No calf tenderness. No peripheral edema. LLE: 1+ DP, 1st toe amputation, 2nd toe dry, black, no purulent drainage or foul odor. Foot is warm, well-perfused 1+ edema, tender to palpation up to distal thigh. NEUROLOGICAL: Cranial nerves II-XII grossly intact. Normal speech. PSYCHIATRIC: Cooperative. Good eye contact. Appropriate mood and affect. SKIN: Warm, dry Laboratory Results - last 24 hr 05/03/17 05/03/17 05/04/17 19:30 21:54 06:19 WBC RBC Hgb Hct MCV MCH MCHC RDW Plt Count MPV Neutrophils % Lymphocytes % Monocytes % Eosinophils % Basophils % PT with INR INR PTT (Actin FS) 52.2 H Sodium Potassium Chloride Carbon Dioxide Anion Gap BUN Creatinine POC Glucometer 259 217 Random Glucose Hemoglobin A1c % Calcium Phosphorus Magnesium Triglycerides Cholesterol Total LDL Cholesterol HDL Cholesterol Blood Type Antibody Screen 05/04/17 05/04/17 05/04/17 07:25 07:55 07:55 WBC 8.8 RBC 2.96 L Hgb 9.0 L D Hct 26.2 L MCV 88.7 MCH 30.4 MCHC 34.3 RDW 12.8 Plt Count 208 MPV 8.9 Neutrophils % 59.6 Lymphocytes % 28.5 D Monocytes % 7.4 Eosinophils % 3.9 D Basophils % 0.6 PT with INR 12.80 H INR 1.13 PTT (Actin FS) 54.5 H Sodium Potassium Chloride Carbon Dioxide Anion Gap BUN Creatinine POC Glucometer Random Glucose Hemoglobin A1c % Calcium Phosphorus Magnesium Triglycerides Cholesterol Total LDL Cholesterol HDL Cholesterol Blood Type Antibody Screen 05/04/17 05/04/17 05/04/17 07:55 07:55 07:55 WBC RBC Hgb Hct MCV MCH MCHC RDW Plt Count MPV Neutrophils % Lymphocytes % Monocytes % Eosinophils % Basophils % PT with INR INR PTT (Actin FS) Sodium 141 Potassium 4.0 Chloride 104 Carbon Dioxide 28 Anion Gap 9 BUN 12 Creatinine 0.6 POC Glucometer Random Glucose 194 H Hemoglobin A1c % Calcium 8.7 Phosphorus 3.2 Magnesium 2.4 Triglycerides 155 Cholesterol 78 Total LDL Cholesterol 162 H HDL Cholesterol 49 Blood Type O POSITIVE Antibody Screen Negative 05/04/17 05/04/17 05/04/17 07:55 10:20 11:22 WBC RBC Hgb Hct MCV MCH MCHC RDW Plt Count MPV Neutrophils % Lymphocytes % Monocytes % Eosinophils % Basophils % PT with INR INR PTT (Actin FS) Sodium Potassium Chloride Carbon Dioxide Anion Gap BUN Creatinine POC Glucometer 191 Random Glucose Hemoglobin A1c % 7.8 H Calcium Phosphorus Magnesium Triglycerides Cholesterol Total LDL Cholesterol HDL Cholesterol Blood Type O POSITIVE Antibody Screen Active Medications Generic Name Dose Route Start Last Admin Trade Name Freq PRN Reason Stop Dose Admin Acetaminophen 650 mg 05/03/17 08:31 05/03/17 22:00 Tylenol - PO 650 mg Q4H PRN Administration PAIN LEVEL 1-5 Amlodipine Besylate 5 mg 05/03/17 10:00 05/04/17 11:17 Norvasc - PO 5 mg DAILY SEVERIANO Administration Atorvastatin Calcium 40 mg 05/04/17 22:00 Lipitor - PO HS [facility] Carvedilol 6.25 mg 05/03/17 10:00 05/04/17 11:16 Coreg - PO 6.25 mg BID SEVERIANO Administration Heparin Sodium (Porcine) 1,000 unit 05/03/17 08:38 Heparin - IVPUSH PRN PRN Heparin Heparin Sodium (Porcine) 5,000 unit 05/03/17 08:38 05/03/17 12:30 Heparin - IVPUSH 5,000 unit PRN PRN Administration Heparin Sodium Chloride 1,000 mls @ 75 mls/hr 05/03/17 08:30 05/04/17 11:09 Normal Saline - IV 75 mls/hr ASDIR SEVERIANO Administration Heparin Sodium (Porcine) 25, 500 mls @ 20 mls/hr 05/03/17 08:45 05/04/17 11: 13 000 unit/ Sodium Chloride IV 1,000 unit/hr TITR SEVERIANO 20 mls/hr Protocol Administration 1,000 UNIT/HR Insulin Aspart 1 vial 05/03/17 11:00 05/04/17 11:26 Novolog Vial Sliding Scale - SQ 2 unit ACHS SEVERIANO Administration Protocol Ondansetron HCl 4 mg 05/04/17 16:55 Zofran Injection IVPUSH Q6H PRN NAUSEA AND/OR VOMITING Oxycodone HCl 10 mg 05/03/17 08:31 Roxicodone - PO Q4H PRN PAIN LEVEL 6-10 ASSESSMENT/PLAN: This is a 56 yo F, with PMH of severe PAD s/p bypass January, LLE stents this Wed at [facility], possible LLE DVT, IDDM, HTN and genital herpes, who presents due to L 2nd toe infection and gangrene x 1 mo. PAD with L 2nd toe dry gangrene -Patient currently on heparin drip -Aspirin and plavix held -Vascular surgery/podiatry consult -No surrounding infection, no indication for antibiotics. Received Vanc/ cefepime in ED -Will need to discuss with vascular surgery regarding AC vs Antiplatelet after surgery -Obtaining records from [facility] -Lipitor 40 mg po daily started -Foot xray- no bony abnormalities -Duplex arterial- patient stent at [employer] and SFA RUQ pain/Suprapubic tenderness/Nausea -Abdomen u/s negative for any abnormalities -Will check lipase -Zofran prn IDDM -hold po agents (novolog 8 am, glipizide 5 daily) -BGM ACHS, ISS -A1c 7.8 HTN -resume coreg 6.25, norvasc 5 FEN -NS @ 75 -lytes stable -diabetic diet PPx -on hep drip Visit type - Emergency Visit Emergency Visit: Yes ED Registration Date: 05/03/17 Care time: The patient presented to the Emergency Department on the above date and was hospitalized for further evaluation of their emergent condition. - New Patient This patient is new to me today: No - Critical Care Critical Care patient: No
[2017-05-04] MEDS ORDERED: INSULIN (NOVOLOG) ASPART 100 UNITS/ML 10ML VIAL ONE (22:37)
[2017-05-04] MEDS: ATORVASTATIN CA 40 MG TABLET (FP) PO SCH (22:51)
[2017-05-05] MEDS: ACETAMINOPHEN 325 MG TABLET (FP) PO PRN ×2 (01:05→16:30)
[2017-05-05] MEDS: INSULIN SLIDING SCALE (NOVOLOG) 1 VIAL SQ SCH ×4 (06:17→22:21)
[2017-05-05 07:08] LABS: BASO % 0.4 % (0-2.0); EOS % 3.8 % (0-4.5); HEMATOCRIT 24.1 % (32.4-45.2); HEMOGLOBIN 8.3 GM/dL (10.7-15.3); LYMPH % 36.5 % (8-40); MCH 30.5 pg (25.7-33.7); MCHC 34.2 g/dl (32.0-36.0); MEAN PLT VOLUME 8.9 fl (7.5-11.1); MONO % 7.6 % (3.8-10.2); NEUT % 51.7 % (42.8-82.8); PLATELET COUNT 206 K/MM3 (134-434); RBC 2.71 M/mm3 (3.60-5.2); RDW 13.1 % (11.6-15.6); WHITE BLOOD COUNT 8.7 K/mm3 (4.0-10.0)
[2017-05-05 07:26] LABS: CHLORIDE 106 mmol/L (98-107); POTASSIUM 3.7 mmol/L (3.5-5.1); SODIUM 142 mmol/L (136-145)
[2017-05-05 07:36] LABS: ANION GAP 10 (8-16); BLOOD UREA NITROGEN 14 mg/dL (7-18); CALCIUM 8.4 mg/dL (8.5-10.1); CO2 26 mmol/L (21-32); CREATININE 0.6 mg/dL (0.55-1.02); GLUCOSE,RANDOM 158 mg/dL (74-106)
--- NOTE | 2017-05-05 09:41 | CONSULT ---
Consult - text type - Consultation Consultation Note: Patient presents with gangrenous 2nd toe left foot. Patient is complaining of pain today. Patient is s/p LLE Bypass December 2016 and subsequently had angio with stent on bypass performed on Tuesday at [facility]. Patient was scheduled to have second toe amputation this Tuesday at [facility], however left AMA because she " did not like the doctor". vss, Tmax 98.2f gangarene 2nd toe, well demarcated to mpj, +prior amputation to hallux in december healed, palpable dp,mildly palpable pt, -ascending cellulitis, +tender on palpation, wbc=8.7 gangarene 2nd toe pvd pain Discussed with patient. Does not want to go back to [facility]. Asked if I would just remove all toes and I told her we would do what was necessary once the patient was in OR. PT/INR in am. NPO after midnight. bone scan left foot r/o om. Patient fully understood all risks, benefits and alternatives. Patient verbally consented when I spoke with her. Consent for debridement of bone and soft tissue possible amputation toes 2&3 left and possible met head resection 2& 3 left. ESR, CRP ordered. Read and appreciated Vascular note and Podiatry note. Will try to schedule for OR tomorrow.
[2017-05-05] MEDS: SODIUM CHLORIDE 1,000 ML IV SCH (10:39)
[2017-05-05] MEDS: HEPARIN - 25,000 UNIT in SODIUM CHLORIDE 495 ML IV SCH (10:40)
[2017-05-05] MEDS: HEPARIN NA (PORCINE) 5,000 UNITS/ML 1ML VIAL IVPUSH PRN (10:43)
[2017-05-05] MEDS: amLODIPine BESYLATE 5 MG TABLET (FP) PO SCH (10:48)
[2017-05-05] MEDS: CARVEDILOL 6.25 MG TABLET (FP) PO SCH ×2 (10:48→22:23)
[2017-05-05] MEDS ORDERED: HEPARIN NA (PORCINE) 5,000 UNITS/ML 1ML VIAL IVPUSH PRN (12:09)
[2017-05-05] MEDS ORDERED: HEPARIN - 25,000 UNIT in SODIUM CHLORIDE 495 ML IV SCH (12:12)
--- NOTE | 2017-05-05 14:25 | PN ---
Physical Exam: SUBJECTIVE: Patient seen and examined No acute event overnight. Patient's nausea has improved. Patient states her heel is beginning to hurt on both feet. OBJECTIVE: Vital Signs Period Temp Pulse Resp BP Sys/Zhang Pulse Ox Last 24 Hr 97.7 F-98.4 F 71-80 18-20 107-132/57-65 98 GENERAL: Awake, alert, and fully oriented, in no acute distress. HEAD: Normal with no signs of trauma. EYES: Pupils equal, round and reactive to light, extraocular movements intact, sclera anicteric, conjunctiva clear. No lid lag. EARS, NOSE, THROAT: Moist mucous membranes. NECK: supple, no jvd LUNGS: Breath sounds equal, clear to auscultation bilaterally. HEART: Regular rate and rhythm, normal S1 and S2, no murmurs, rubs, or gallops ABDOMEN: Soft, +mild epigastric, suprapubic tenderness, nondistended, +bs, no masses or organomegaly MUSCULOSKELETAL: No CVA tenderness. UPPER EXTREMITIES: 2+ pulses, warm, well-perfused. No cyanosis. No clubbing. No peripheral edema. LOWER EXTREMITIES: RLE 2+ DP, warm, well-perfused. No calf tenderness. No peripheral edema. LLE: 1-2+ DP, 1st toe amputation, 2nd toe dry, black, no purulent drainage or foul odor. Heel with mild discoloration. left pinky toe has small reddish macule. Foot is warm, well-perfused 1+ edema, NEUROLOGICAL: Cranial nerves II-XII grossly intact. Normal speech. PSYCHIATRIC: Cooperative. Good eye contact. Appropriate mood and affect. SKIN: Warm, dry Laboratory Results - last 24 hr 05/04/17 05/04/17 05/04/17 16:45 17:24 22:52 WBC RBC Hgb Hct MCV MCH MCHC RDW Plt Count MPV Neutrophils % Lymphocytes % Monocytes % Eosinophils % Basophils % PTT (Actin FS) Sodium Potassium Chloride Carbon Dioxide Anion Gap BUN Creatinine POC Glucometer 330 209 Random Glucose Calcium C-Reactive Protein Lipase 72 L 05/05/17 05/05/17 05/05/17 05:35 05:35 05:35 WBC 8.7 RBC 2.71 L Hgb 8.3 L Hct 24.1 L MCV 89.0 MCH 30.5 MCHC 34.2 RDW 13.1 Plt Count 206 MPV 8.9 Neutrophils % 51.7 Lymphocytes % 36.5 D Monocytes % 7.6 Eosinophils % 3.8 Basophils % 0.4 PTT (Actin FS) 46.3 H Sodium 142 Potassium 3.7 Chloride 106 Carbon Dioxide 26 Anion Gap 10 BUN 14 Creatinine 0.6 POC Glucometer Random Glucose 158 H Calcium 8.4 L C-Reactive Protein 4.5 H Lipase 05/05/17 05/05/17 05/05/17 05:35 06:16 10:39 WBC RBC Hgb Hct MCV MCH MCHC RDW Plt Count MPV Neutrophils % Lymphocytes % Monocytes % Eosinophils % Basophils % PTT (Actin FS) Sodium Potassium Chloride Carbon Dioxide Anion Gap BUN Creatinine POC Glucometer 156 231 Random Glucose Calcium C-Reactive Protein Cancelled Lipase Active Medications Generic Name Dose Route Start Last Admin Trade Name Freq PRN Reason Stop Dose Admin Acetaminophen 650 mg 05/03/17 08:31 05/05/17 01:05 Tylenol - PO 650 mg Q4H PRN Administration PAIN LEVEL 1-5 Amlodipine Besylate 5 mg 05/03/17 10:00 05/05/17 10:48 Norvasc - PO 5 mg DAILY SEVERIANO Administration Atorvastatin Calcium 40 mg 05/04/17 22:00 05/04/17 22:51 Lipitor - PO 40 mg HS SEVERIANO Administration Carvedilol 6.25 mg 05/03/17 10:00 05/05/17 10:48 Coreg - PO 6.25 mg BID SEVERIANO Administration Heparin Sodium (Porcine) 1,000 unit 05/03/17 08:38 05/05/17 10:43 Heparin - IVPUSH 1,000 unit PRN PRN Administration Heparin Heparin Sodium (Porcine) 6,000 unit 05/05/17 12:09 Heparin - IVPUSH PRN PRN Heparin Sodium Chloride 1,000 mls @ 75 mls/hr 05/03/17 08:30 05/05/17 10:39 Normal Saline - IV 75 mls/hr ASDIR SEVERIANO Administration Heparin Sodium (Porcine) 25, 500 mls @ 27 mls/hr 05/05/17 12:12 05/05/17 12: 49 000 unit/ Sodium Chloride IV 1,350 unit/hr TITR SEVERIANO 27 mls/hr Protocol Administration 1,350 UNIT/HR Insulin Aspart 1 vial 05/03/17 11:00 05/05/17 10:41 Novolog Vial Sliding Scale - SQ 4 unit ACHS SEVERIANO Administration Protocol Ondansetron HCl 4 mg 05/04/17 16:55 Zofran Injection IVPUSH Q6H PRN NAUSEA AND/OR VOMITING Oxycodone HCl 10 mg 05/03/17 08:31 Roxicodone - PO Q4H PRN PAIN LEVEL 6-10 ASSESSMENT/PLAN: This is a 56 yo F, with PMH of severe PAD s/p bypass January, LLE stents this Wed at [facility], possible LLE DVT, IDDM, HTN and genital herpes, who presents due to L 2nd toe infection and gangrene x 1 mo. PAD with L 2nd toe dry gangrene -Patient currently on heparin drip -Aspirin and plavix held -Vascular surgery/podiatry consult -No surrounding infection, no indication for antibiotics. Received Vanc/ cefepime in ED -Obtaining records from [facility] -Lipitor 40 mg po daily started -Foot xray- no bony abnormalities -Duplex arterial- patient stent at [employer] and [facility] -Patient scheduled for OR tomorrow, NPO after midnight, heparin drip will be held. -Spoke with Dr. Gonsalez, He believes heel pain and discoloration is 2/2 to pressure. He believes heel needs to be offloaded and does not feel heel needs to be re-evaluated. He has signed off the case and believes patient should go to [facility] -Will need to discuss with vascular surgery regarding AC vs Antiplatelet after surgery RUQ pain/Suprapubic tenderness/Nausea, improved -Abdomen u/s negative for any abnormalities -Lipase normal -Zofran prn IDDM -hold po agents (novolog 8 am, glipizide 5 daily) -BGM ACHS, ISS -A1c 7.8 HTN -resume coreg 6.25, norvasc 5 FEN -NS @ 75 -lytes stable -diabetic diet, NPO AFTER MIDNIGHT PPx -on hep drip, will hold overnight Visit type - Emergency Visit Emergency Visit: Yes ED Registration Date: 05/03/17 Care time: The patient presented to the Emergency Department on the above date and was hospitalized for further evaluation of their emergent condition. - New Patient This patient is new to me today: No - Critical Care Critical Care patient: No
--- NOTE | 2017-05-05 18:07 | PN ---
Teaching Attending Note Name of Resident: Maksim Roman ATTENDING PHYSICIAN STATEMENT I saw and evaluated the patient. I reviewed the resident's note and discussed the case with the resident. I agree with the resident's findings and plan as documented. SUBJECTIVE: No fever or chills. has no abd pain. no N/V today . she has new pain in b/l heels L > R . OBJECTIVE: NAD . CV: RRR, no MRG Lungs: CTAB Ext: L leg circumference > R . old surgical scar on medial knee , lower thigh and upper leg on L side L big toe amputation with healed scar , L 2nd toe with black discoloration , no surrounding erythema , no discharge L heel with a purple discoloration 1x1 cm. mild erythema and tenderness over medial aspect of L third toes. a small 3 mm reddish spot on lateral little toe on L DP 2+ b/l , PT 1+ b/l warm feet ASSESSMENT AND PLAN: 56 y/o lady with h/o DM , HTN, PVD s/p bipas 12/31, and recent stent placement a week prior to presentation in [facility], also s/p L big toe amputation who presented straight to [facility] after leaving AMA form [facility]. she has L second toe gangrene 1- L 2nd toe gangrene: Arterial US with significant stenosis in distal SFA . Records form [facility] obtained,had Pre-Op angio of LLE , it showed occlusion in distal SFA and proximal popliteal arteries. [place] calf arteries had poor flow. - New area or discoloration and pain on L heel . Dp pulse is still 2+ b/l, and 1 + PT pulses. with warm feet. - Adjusted heparin protocol and increased rate and boluses for goal PTT 60-80 - Holding ASa and plavix for surgery. - Will need input form vascular sx on the choice of antiplatelet agent/s after after surgery - Spoke to Betzy, for vascular re-evaluation of L heel purple lesion and pain . - cont lipitor. - for OR tomorrow by dr. Tran - NPO after MN, stop heparin gtt in am 2- ABd pain and nausea/vomiting: - resolved . Nl lipase - dc IVF 3- DM : SSI for now, hold glipizide 4- HTN: Norvasc and coreg Dispo: HLOC
[2017-05-05] MEDS: ATORVASTATIN CA 40 MG TABLET (FP) PO SCH (22:23)
[2017-05-06] MEDS: INSULIN SLIDING SCALE (NOVOLOG) 1 VIAL SQ SCH ×4 (06:12→22:50)
[2017-05-06 07:28] LABS: BASO % 0.4 % (0-2.0); EOS % 3.5 % (0-4.5); HEMATOCRIT 24.3 % (32.4-45.2); HEMOGLOBIN 8.4 GM/dL (10.7-15.3); LYMPH % 27.3 % (8-40); MCH 30.3 pg (25.7-33.7); MCHC 34.4 g/dl (32.0-36.0); MEAN CELL VOLUME 88.1 fl (80-96); MEAN PLT VOLUME 9.1 fl (7.5-11.1); MONO % 8.1 % (3.8-10.2); NEUT % 60.7 % (42.8-82.8); PLATELET COUNT 213 K/MM3 (134-434); RBC 2.75 M/mm3 (3.60-5.2); RDW 13.3 % (11.6-15.6); WHITE BLOOD COUNT 7.7 K/mm3 (4.0-10.0)
[2017-05-06 07:34] LABS: INR 1.08 (0.82-1.09); PROTHROMBIN TIME (PATIENT) 12.2 SEC (9.98-11.88)
[2017-05-06 08:26] LABS: ANION GAP 8 (8-16); BLOOD UREA NITROGEN 13 mg/dL (7-18); CALCIUM 8.8 mg/dL (8.5-10.1); CHLORIDE 104 mmol/L (98-107); CO2 29 mmol/L (21-32); CREATININE 0.6 mg/dL (0.55-1.02); GLUCOSE,RANDOM 175 mg/dL (74-106); POTASSIUM 4.2 mmol/L (3.5-5.1); SODIUM 141 mmol/L (136-145)
[2017-05-06] MEDS ORDERED: LIDOCAINE HCL 1%, 10 MG/ML (20ML VIAL) ONE (10:16)
[2017-05-06] MEDS ORDERED: LIDOCAINE 1%/EPI 1:100000 (20 ML MULTI DOSE VIAL) ONE (10:16)
[2017-05-06] MEDS ORDERED: BUPIVACAINE HCL/PF 0.5% (5MG/ML) 10 ML VIAL ONE (10:16)
[2017-05-06] MEDS ORDERED: LIDOCAINE HCL 2% (20ML MULTI-DOSE VIAL) NR ONE (10:16)
[2017-05-06] MEDS ORDERED: MIDAZOLAM HCL 2 MG/2 ML SINGLE DOSE VIAL ONE (10:22)
[2017-05-06] MEDS ORDERED: PROPOFOL 20 ML ONE ×2 (10:23)
[2017-05-06] MEDS ORDERED: SUCCINYLCHOLINE CHLORIDE 200 MG/10 ML VIAL ONE (10:24)
[2017-05-06] MEDS: CARVEDILOL 6.25 MG TABLET (FP) PO SCH ×2 (10:31→22:49)
[2017-05-06] MEDS ORDERED: VANCOMYCIN 1,000 MG VIAL (RESTRICTED TO ID ONLY) IVPB ONE (10:35)
[2017-05-06] MEDS ORDERED: LIDOCAINE HCL 1%, 10 MG/ML (20ML VIAL) INF ONE (10:44)
[2017-05-06] MEDS ORDERED: BUPIVACAINE HCL/PF 0.5% (5MG/ML) 10 ML VIAL IJ ONE (10:44)
[2017-05-06] MEDS ORDERED: VANCOMYCIN 1,000 MG VIAL (RESTRICTED TO ID ONLY) ONE (10:57)
--- NOTE | 2017-05-06 12:18 | OP ---
Operative Note - Note: Operative Date: 05/06/17 Pre-Operative Diagnosis: gangarene 2nd toe left Operation: amputation second toe left with bone cultures proximal and distal Findings: necrotc bone distally Post-Operative Diagnosis: Same as Pre-op Surgeon: Josafat Tran Anesthesiologist/COP BREAKER: Yecenia Stern Anesthesia: Local, MAC Estimated Blood Loss (mls): 5 Instrument used (Debridements only): 15 blade
[2017-05-06] MEDS ORDERED: ONDANSETRON 4 MG/2 ML VIAL IVPUSH PRN (12:34)
[2017-05-06] MEDS ORDERED: HEPARIN NA (PORCINE) 5,000 UNITS/ML 1ML VIAL IVPUSH PRN (12:34)
[2017-05-06 13:03] LABS: BASO % 0.4 % (0-2.0); EOS % 3.6 % (0-4.5); HEMATOCRIT 22.6 % (32.4-45.2); HEMOGLOBIN 7.7 GM/dL (10.7-15.3); LYMPH % 28.9 % (8-40); MCH 30.6 pg (25.7-33.7); MCHC 34.1 g/dl (32.0-36.0); MEAN CELL VOLUME 89.8 fl (80-96); MEAN PLT VOLUME 8.7 fl (7.5-11.1); MONO % 8.5 % (3.8-10.2); NEUT % 58.6 % (42.8-82.8); PLATELET COUNT 209 K/MM3 (134-434); RBC 2.51 M/mm3 (3.60-5.2); RDW 13.2 % (11.6-15.6)
[2017-05-06] MEDS: amLODIPine BESYLATE 5 MG TABLET (FP) PO SCH (13:08)
--- NOTE | 2017-05-06 13:08 | PN ---
Physical Exam: SUBJECTIVE: Patient seen and examined No acute event overnight. Patient's nausea has improved. Patient states her heel is beginning to hurt on both feet. OBJECTIVE: Vital Signs Period Temp Pulse Resp BP Sys/Zhang Pulse Ox Last 24 Hr 97.2 F-98.5 F 60-84 16-20 99-130/54-92 100-100 GENERAL: Awake, alert, and fully oriented, in no acute distress. HEAD: Normal with no signs of trauma. EYES: Pupils equal, round and reactive to light, extraocular movements intact, sclera anicteric, conjunctiva clear. No lid lag. EARS, NOSE, THROAT: Moist mucous membranes. NECK: supple, no jvd LUNGS: Breath sounds equal, clear to auscultation bilaterally. HEART: Regular rate and rhythm, normal S1 and S2, no murmurs, rubs, or gallops ABDOMEN: Soft, +mild epigastric, suprapubic tenderness, nondistended, +bs, no masses or organomegaly MUSCULOSKELETAL: No CVA tenderness. UPPER EXTREMITIES: 2+ pulses, warm, well-perfused. No cyanosis. No clubbing. No peripheral edema. LOWER EXTREMITIES: RLE 2+ DP, warm, well-perfused. No calf tenderness. No peripheral edema. LLE: 1-2+ DP, 1st toe amputation, 2nd toe dry, black, no purulent drainage or foul odor. Heel with mild discoloration. left pinky toe has small reddish macule. Foot is warm, well-perfused 1+ edema, NEUROLOGICAL: Cranial nerves II-XII grossly intact. Normal speech. PSYCHIATRIC: Cooperative. Good eye contact. Appropriate mood and affect. SKIN: Warm, dry Laboratory Results - last 24 hr 05/05/17 05/05/17 05/05/17 16:35 18:00 19:00 WBC RBC Hgb Hct MCV MCH MCHC RDW Plt Count MPV Neutrophils % Lymphocytes % Monocytes % Eosinophils % Basophils % ESR PT with INR INR PTT (Actin FS) 73.1 H D Sodium Potassium Chloride Carbon Dioxide Anion Gap BUN Creatinine POC Glucometer 204 Random Glucose Calcium Stool Occult Blood Negative 05/05/17 05/06/17 05/06/17 22:19 06:09 06:30 WBC RBC Hgb Hct MCV MCH MCHC RDW Plt Count MPV Neutrophils % Lymphocytes % Monocytes % Eosinophils % Basophils % ESR PT with INR INR PTT (Actin FS) 27.2 D Sodium Potassium Chloride Carbon Dioxide Anion Gap BUN Creatinine POC Glucometer 245 178 Random Glucose Calcium Stool Occult Blood 05/06/17 05/06/17 05/06/17 06:30 06:30 06:30 WBC 7.7 RBC 2.75 L Hgb 8.4 L Hct 24.3 L MCV 88.1 MCH 30.3 MCHC 34.4 RDW 13.3 Plt Count 213 MPV 9.1 Neutrophils % 60.7 Lymphocytes % 27.3 D Monocytes % 8.1 Eosinophils % 3.5 Basophils % 0.4 ESR > 140 H PT with INR 12.20 H INR 1.08 PTT (Actin FS) Sodium Potassium Chloride Carbon Dioxide Anion Gap BUN Creatinine POC Glucometer Random Glucose Calcium Stool Occult Blood 05/06/17 06:30 WBC RBC Hgb Hct MCV MCH MCHC RDW Plt Count MPV Neutrophils % Lymphocytes % Monocytes % Eosinophils % Basophils % ESR PT with INR INR PTT (Actin FS) Sodium 141 Potassium 4.2 Chloride 104 Carbon Dioxide 29 Anion Gap 8 BUN 13 Creatinine 0.6 POC Glucometer Random Glucose 175 H Calcium 8.8 Stool Occult Blood Active Medications Generic Name Dose Route Start Last Admin Trade Name Freq PRN Reason Stop Dose Admin Acetaminophen 650 mg 05/06/17 12:34 Tylenol - PO Q4H PRN PAIN LEVEL 1-5 Amlodipine Besylate 5 mg 05/07/17 10:00 Norvasc - PO DAILY [facility] Atorvastatin Calcium 40 mg 05/06/17 22:00 Lipitor - PO HS [facility] Carvedilol 6.25 mg 05/06/17 22:00 Coreg - PO BID [facility] Heparin Sodium (Porcine) 1,000 unit 05/06/17 12:34 Heparin - IVPUSH PRN PRN Heparin Cefazolin Sodium 1 gm in 50 mls @ 100 mls/hr 05/06/17 18:00 Ancef 1 Gm Premixed Ivpb - IVPB Q8H-IV [facility] Insulin Aspart 1 vial 05/06/17 16:30 Novolog Vial Sliding Scale - SQ ACHS [facility] Protocol Ondansetron HCl 4 mg 05/06/17 12:34 Zofran Injection IVPUSH Q6H PRN NAUSEA AND/OR VOMITING ASSESSMENT/PLAN: This is a 56 yo F, with PMH of severe PAD s/p bypass January, LLE stents this Wed at [facility], possible LLE DVT, IDDM, HTN and genital herpes, who presents due to L 2nd toe infection and gangrene x 1 mo. PAD with L 2nd toe dry gangrene -Vascular surgery/podiatry consult -No surrounding infection, no indication for antibiotics. Received Vanc/ cefepime in ED -Obtaining records from [facility] -Lipitor 40 mg po daily started -Foot xray- no bony abnormalities -Duplex arterial- patient stent at [facility] and [facility] -To OR today, Will restart aspirin and plavix after procedure as routine protocol for stent placement. -Spoke with Dr. Gonsalez, He believes heel pain and discoloration is 2/2 to pressure. He believes heel needs to be offloaded and does not feel heel needs to be re-evaluated. He has signed off the case and believes patient should go to [facility] RUQ pain/Suprapubic tenderness/Nausea, improved -Abdomen u/s negative for any abnormalities -Lipase normal -Zofran prn IDDM -hold po agents (novolog 8 am, glipizide 5 daily) -BGM ACHS, ISS -A1c 7.8 HTN -resume coreg 6.25, norvasc 5 FEN -NS @ 75 -lytes stable -diabetic/sodium diet PPx -Heparin 5000 u sq tid Visit type - Emergency Visit Emergency Visit: Yes ED Registration Date: 05/03/17 Care time: The patient presented to the Emergency Department on the above date and was hospitalized for further evaluation of their emergent condition. - New Patient This patient is new to me today: No - Critical Care Critical Care patient: No
[2017-05-06] MEDS ORDERED: CLOPIDOGREL BISULFATE 75 MG TABLET (FP) PO SCH (14:45)
[2017-05-06] MEDS ORDERED: ASPIRIN 81 MG CHEWABLE TABLETS PO SCH (14:45)
--- NOTE | 2017-05-06 15:25 | OP ---
DATE OF OPERATION: PREOPERATIVE DIAGNOSIS: Left 2nd toe dry gangrene. POSTOPERATIVE DIAGNOSIS: Left 2nd toe dry gangrene. PROCEDURE: Left 2nd toe amputation. ANESTHESIA: IV monitored anesthetic care with local injection of 1:1 mix of 1% lidocaine plain and 0.5% Marcaine plain. HEMOSTASIS: No tourniquet. ESTIMATED BLOOD LOSS: 1 mL. SURGEON: Josafat Tran DPM PROCEDURE IN DETAIL: The patient was brought to the operating room and placed supine on the table. After adequate IV sedation was administered, a local infiltrative block was used to block the left 2nd toe using 1:1 mix of 1% lidocaine plain and 0.5% Marcaine plain with a total use of 7 mL. The left foot was then prepped and draped in the usual aseptic fashion. Attention was directed to the left 2nd toe, which appeared to be dry and gangrenous to the level of the metatarsophalangeal joint. Using No. 15 blade, a circumferential incision was made around the base of the gangrenous area at the level of the metatarsophalangeal joint. The incision was deepened to the joint to the level of bone. The left 2nd distal phalanx was sent for pathology and bone culture and the proximal phalanx base of the left 2nd toe was sent for clean margin bone culture. There was no abscess or purulent drainage noted , and the metatarsal head appeared to be healthy. All remaining necrotic tissue was excised and cleared from the operative field. The surgical site was then copiously irrigated with normal saline solution. The skin edges were reapproximated using 4-0 nylon in simple suture fashion. The surgical site on the proximal aspect was packed with iodoform packing and then covered with 4x4 Adaptic and Kerlix and Nicholas bandage in a light compressive fashion. The patient tolerated the anesthesia and the surgical procedure well and was discharged to the PACU with vital signs stable and vascular status intact to the left foot. The patient will be transferred to inpatient when cleared by anesthesia. SAMMY Hall/[id number] MTDD
--- NOTE | 2017-05-06 15:46 | PN ---
Teaching Attending Note Name of Resident: Maksim Roman ATTENDING PHYSICIAN STATEMENT I saw and evaluated the patient. I reviewed the resident's note and discussed the case with the resident. I agree with the resident's findings and plan as documented. SUBJECTIVE: No fever or chills . seen after her toe amputation. denies any pain, no SOB or cough . OBJECTIVE: NAD . CV: RRR, no MRG Lungs: CTAB Ext: L leg circumference > R . old surgical scar on medial knee , lower thigh and upper leg on L side L foot in a surgical dressing , was not removed. L heel with purple discoloration laterally ( 1 cm in diameter ) DP 2+ on R , PT 1+ on R . L was not examined due to dressing ASSESSMENT AND PLAN: 56 y/o lady with h/o DM , HTN, PVD s/p bipas 12/31, and recent stent placement a week prior to presentation in [facility], also s/p L big toe amputation who presented straight to [facility] after leaving AMA form [facility]. she has L second toe gangrene 1- L 2nd toe gangrene: - s/p L toe amputation today - pain control - start ASA and plavix if Ok form surgical stand point - to d/w vascular antiplatelet treatment - cont lipitor 2- ABd pain and nausea/vomiting: - resolved . 3- DM : SSI for now, hold glipizide 4- HTN: Norvasc and coreg Dispo: HLOC
[2017-05-06] MEDS: CEFAZOLIN 1 GM/D5W 1 GM/50 ML BAG IVPB SCH (17:26)
[2017-05-06] MEDS: ACETAMINOPHEN 325 MG TABLET (FP) PO PRN (20:52)
[2017-05-06] MEDS: HEPARIN NA (PORCINE) 5,000 UNITS/ML 1ML VIAL SQ SCH (22:49)
[2017-05-06] MEDS: ATORVASTATIN CA 40 MG TABLET (FP) PO SCH (22:49)
[2017-05-07] MEDS: CEFAZOLIN 1 GM/D5W 1 GM/50 ML BAG IVPB SCH ×3 (02:37→17:51)
[2017-05-07] MEDS: INSULIN SLIDING SCALE (NOVOLOG) 1 VIAL SQ SCH ×4 (07:05→22:53)
[2017-05-07] MEDS: HEPARIN NA (PORCINE) 5,000 UNITS/ML 1ML VIAL SQ SCH ×3 (07:05→22:53)
[2017-05-07 07:25] LABS: BASO % 0.7 % (0-2.0); HEMATOCRIT 25.7 % (32.4-45.2); HEMOGLOBIN 8.7 GM/dL (10.7-15.3); LYMPH % 25.9 % (8-40); MCH 30.4 pg (25.7-33.7); MCHC 33.9 g/dl (32.0-36.0); MEAN CELL VOLUME 89.4 fl (80-96); MEAN PLT VOLUME 8.7 fl (7.5-11.1); MONO % 8.2 % (3.8-10.2); NEUT % 61.2 % (42.8-82.8); PLATELET COUNT 227 K/MM3 (134-434); RBC 2.88 M/mm3 (3.60-5.2); RDW 13.3 % (11.6-15.6); WHITE BLOOD COUNT 8.1 K/mm3 (4.0-10.0)
[2017-05-07 07:34] LABS: ANION GAP 15 (8-16); BLOOD UREA NITROGEN 10 mg/dL (7-18); CALCIUM 8.6 mg/dL (8.5-10.1); CHLORIDE 103 mmol/L (98-107); CO2 21 mmol/L (21-32); CREATININE 0.7 mg/dL (0.55-1.02); GLUCOSE,RANDOM 187 mg/dL (74-106); POTASSIUM 4.2 mmol/L (3.5-5.1); SODIUM 139 mmol/L (136-145)
--- NOTE | 2017-05-07 08:27 | PN ---
Progress Note (short form) - Note Progress Note: POD#1. No pain. VSS. Tmax=98.0 +dressing clean dry and intact, wbc=8.1, normal post op. Post op shoe to left foot. May go to bathroom. Do not remove dressing. awaiting xray.
[2017-05-07] MEDS ORDERED: PT OWN MED DRAWER 7, Y5N ONE (09:43)
[2017-05-07] MEDS: ASPIRIN 81 MG CHEWABLE TABLETS PO SCH (09:51)
[2017-05-07] MEDS: amLODIPine BESYLATE 5 MG TABLET (FP) PO SCH (09:51)
[2017-05-07] MEDS: CARVEDILOL 6.25 MG TABLET (FP) PO SCH ×2 (09:51→22:34)
[2017-05-07] MEDS: CLOPIDOGREL BISULFATE 75 MG TABLET (FP) PO SCH (09:52)
--- NOTE | 2017-05-07 15:32 | PN ---
Teaching Attending Note Name of Resident: Margareth Chakraborty ATTENDING PHYSICIAN STATEMENT I saw and evaluated the patient. I reviewed the resident's note and discussed the case with the resident. I agree with the resident's findings and plan as documented. SUBJECTIVE: No fever or chills, Denies any pain in L foot. no pain in heel , no numbness or tingling in feet OBJECTIVE: NAD . CV: RRR, no MRG Lungs: CTAB Ext: L leg circumference > R . old surgical scar on medial knee , lower thigh and upper leg on L side L foot in a surgical dressing , was not removed. L heel with purple discoloration laterally ( 1 cm in diameter ) . DP 2+ on both sides . PT not felt today on both sides ASSESSMENT AND PLAN: 56 y/o lady with h/o DM , HTN, PVD s/p bipas 12/31, and recent stent placement a week prior to presentation in [facility], also s/p L big toe amputation who presented straight to [facility] after leaving AMA form [facility]. she has L second toe gangrene 1- L 2nd toe gangrene: - s/p L toe amputation 05/06 - pain control - follow bone culture - cont ASa and plavix this was d/w vascular by resident . also podiatry was okl with that 2-PVD, s/p bypass on 12/31 and stenting 05/01 . - cont ASa and plavix this was d/w vascular by resident . also podiatry was okl with that - f/u vascular after dc - cont lipitor 3- DM : SSI for now, hold glipizide 4- HTN: Norvasc and coreg Dispo: HLOC
[2017-05-07] MEDS: ACETAMINOPHEN 325 MG TABLET (FP) PO PRN ×2 (19:09→22:51)
--- NOTE | 2017-05-07 19:34 | PN ---
Physical Exam: SUBJECTIVE: Patient seen and examined OBJECTIVE: Vital Signs Period Temp Pulse Resp BP Sys/Zhang Pulse Ox Last 24 Hr 97.9 F-98.3 F 77-83 18-20 106-133/57-72 100-100 GENERAL: The patient is awake, alert, and fully oriented, in no acute distress. HEAD: Normal with no signs of trauma. EYES: PERRL, extraocular movements intact, sclera anicteric, conjunctiva clear. No ptosis. ENT: Ears normal, nares patent, oropharynx clear without exudates, moist mucous membranes. NECK: Trachea midline, full range of motion, supple. LUNGS: Breath sounds equal, clear to auscultation bilaterally, no wheezes, no crackles, no accessory muscle use. HEART: Regular rate and rhythm, S1, S2 without murmur, rub or gallop. ABDOMEN: Soft, nontender, nondistended, normoactive bowel sounds, no guarding, no rebound, no hepatosplenomegaly, no masses. EXTREMITIES: 2+ pulses, warm, well-perfused, no edema. NEUROLOGICAL: Cranial nerves II through XII grossly intact. Normal speech, gait not observed. PSYCH: Normal mood, normal affect. SKIN: Warm, dry, normal turgor, no rashes or lesions noted Laboratory Results - last 24 hr 05/06/17 05/07/17 05/07/17 22:48 06:00 06:00 WBC 8.1 RBC 2.88 L Hgb 8.7 L D Hct 25.7 L MCV 89.4 MCH 30.4 MCHC 33.9 RDW 13.3 Plt Count 227 MPV 8.7 Neutrophils % 61.2 Lymphocytes % 25.9 Monocytes % 8.2 Eosinophils % 4.0 Basophils % 0.7 PTT (Actin FS) 28.6 Sodium Potassium Chloride Carbon Dioxide Anion Gap BUN Creatinine POC Glucometer 283 Random Glucose Calcium 05/07/17 05/07/17 05/07/17 06:00 07:05 12:29 WBC RBC Hgb Hct MCV MCH MCHC RDW Plt Count MPV Neutrophils % Lymphocytes % Monocytes % Eosinophils % Basophils % PTT (Actin FS) Sodium 139 Potassium 4.2 Chloride 103 Carbon Dioxide 21 Anion Gap 15 BUN 10 Creatinine 0.7 POC Glucometer 210 226 Random Glucose 187 H Calcium 8.6 05/07/17 17:52 WBC RBC Hgb Hct MCV MCH MCHC RDW Plt Count MPV Neutrophils % Lymphocytes % Monocytes % Eosinophils % Basophils % PTT (Actin FS) Sodium Potassium Chloride Carbon Dioxide Anion Gap BUN Creatinine POC Glucometer 253 Random Glucose Calcium Active Medications Generic Name Dose Route Start Last Admin Trade Name Freq PRN Reason Stop Dose Admin Acetaminophen 650 mg 05/06/17 12:34 05/07/17 19:09 Tylenol - PO 650 mg Q4H PRN Administration PAIN LEVEL 1-5 Amlodipine Besylate 5 mg 05/07/17 10:00 05/07/17 09:51 Norvasc - PO 5 mg DAILY [facility] Administration Aspirin 81 mg 05/07/17 10:00 05/07/17 09:51 Asa - PO 81 mg DAILY [facility] Administration Atorvastatin Calcium 40 mg 05/06/17 22:00 05/06/17 22:49 Lipitor - PO 40 mg HS SEVER[facility]O Administration Carvedilol 6.25 mg 05/06/17 22:00 05/07/17 09:51 Coreg - PO 6.25 mg BID SEVERIANO Administration Clopidogrel Bisulfate 75 mg 05/07/17 10:00 05/07/17 09:52 Plavix - PO 75 mg DAILY [facility]VER[facility] Administration Heparin Sodium (Porcine) 5,000 unit 05/06/17 22:00 05/07/17 15:31 Heparin - SQ 5,000 unit TID SEVER[facility]O Administration Cefazolin Sodium 1 gm in 50 mls @ 100 mls/hr 05/06/17 18:00 05/07/17 17:51 Ancef 1 Gm Premixed Ivpb - IVPB 100 mls/hr Q8H-IV [facility] Administration Insulin Aspart 1 vial 05/06/17 16:30 05/07/17 18:07 Novolog Vial Sliding Scale - SQ 6 units ACHS SEVERIANO Administration Protocol Ondansetron HCl 4 mg 05/06/17 12:34 Zofran Injection IVPUSH Q6H PRN NAUSEA AND/OR VOMITING ASSESSMENT/PLAN: Visit type - Emergency Visit Emergency Visit: Yes ED Registration Date: 05/03/17 Care time: The patient presented to the Emergency Department on the above date and was hospitalized for further evaluation of their emergent condition. - New Patient This patient is new to me today: No - Critical Care Critical Care patient: No
[2017-05-07] MEDS ORDERED: INSULIN (NOVOLOG) ASPART 100 UNITS/ML 10ML VIAL ONE (22:42)
[2017-05-07] MEDS: ATORVASTATIN CA 40 MG TABLET (FP) PO SCH (22:53)
[2017-05-08] MEDS: CEFAZOLIN 1 GM/D5W 1 GM/50 ML BAG IVPB SCH ×3 (02:04→18:12)
[2017-05-08] MEDS: HEPARIN NA (PORCINE) 5,000 UNITS/ML 1ML VIAL SQ SCH ×3 (06:05→21:07)
[2017-05-08] MEDS: INSULIN SLIDING SCALE (NOVOLOG) 1 VIAL SQ SCH ×4 (06:05→21:08)
[2017-05-08 08:30] LABS: HEMATOCRIT 25.7 % (32.4-45.2); HEMOGLOBIN 8.7 GM/dL (10.7-15.3); MCH 30.2 pg (25.7-33.7); MEAN PLT VOLUME 8.9 fl (7.5-11.1); PLATELET COUNT 222 K/MM3 (134-434); RBC 2.89 M/mm3 (3.60-5.2); RDW 13.2 % (11.6-15.6); WHITE BLOOD COUNT 8.9 K/mm3 (4.0-10.0)
--- NOTE | 2017-05-08 09:34 | PN ---
Progress Note (short form) - Note Progress Note: POD#2. No pain. VSS. Tmax=98.0 +dressing clean dry and intact, wbc=8.9, retention sutures in place, +packing intact normal post op. Post op shoe to left foot. May go to bathroom. Dry dressing change done. Packing pulled . xray reviewed. Can be DC from Podiatry standpoint if medically stable. No growth on cultures. Advised to follow up with me in wound care center on Tuesday AM.
[2017-05-08] MEDS: CARVEDILOL 6.25 MG TABLET (FP) PO SCH ×2 (11:27→21:06)
[2017-05-08] MEDS: ASPIRIN 81 MG CHEWABLE TABLETS PO SCH (11:27)
[2017-05-08] MEDS: amLODIPine BESYLATE 5 MG TABLET (FP) PO SCH (11:28)
[2017-05-08] MEDS: CLOPIDOGREL BISULFATE 75 MG TABLET (FP) PO SCH (11:28)
--- NOTE | 2017-05-08 18:33 | PN ---
Progress Note (short form) - Note Progress Note: Subjective: no pain at rest . intermittent pain at site of surgery when ambulating Objective: Vital Signs: Last Vital Signs Temp Pulse Resp BP Pulse Ox 98.7 F 78 20 114/50 100 05/08/17 16:30 05/08/17 16:30 05/08/17 16:30 05/08/17 16:30 05/07/17 21:00 Laboratory Results - last 24 hr 05/07/17 05/07/17 05/08/17 19:30 22:51 06:00 WBC RBC Hgb Hct MCV MCH MCHC RDW Plt Count MPV PTT (Actin FS) POC Glucometer 243 190 Troponin I < 0.02 05/08/17 05/08/17 05/08/17 06:30 06:30 12:06 WBC 8.9 RBC 2.89 L Hgb 8.7 L Hct 25.7 L MCV 89.0 MCH 30.2 MCHC 34.0 RDW 13.2 Plt Count 222 MPV 8.9 PTT (Actin FS) 44.7 H D POC Glucometer 322 Troponin I 05/08/17 17:09 WBC RBC Hgb Hct MCV MCH MCHC RDW Plt Count MPV PTT (Actin FS) POC Glucometer 223 Troponin I PE: NAD . CV: RRR, no MRG Lungs: CTAB Ext: L leg edma better . old surgical scar on medial knee , lower thigh and upper leg on L side L foot in a surgical dressing , was removed. L second toe amputation wound with stitches and no drainage . DP 2+ b/l. PT 1+ b/l ASSESSMENT AND PLAN: 56 y/o lady with h/o DM , HTN, PVD s/p bipas 12/31, and recent stent placement a week prior to presentation in [facility], also s/p L big toe amputation who presented straight to [facility] after leaving AMA form [facility]. she has L second toe gangrene 1- L 2nd toe gangrene: - s/p L toe amputation 05/06 - pain control - bone culture no growth - cont ASa and plavix - surgical shoe . to bathroom 2-PVD, s/p bypass on 12/31 and stenting 05/01. - cont ASa and plavix - f/u vascular after dc - cont lipitor 3- DM : SSI add levemir to help with wound healing 4- HTN: Norvasc and coreg Dispo: pending dc to rehab Visit type - Emergency Visit Emergency Visit: Yes ED Registration Date: 05/03/17 Care time: The patient presented to the Emergency Department on the above date and was hospitalized for further evaluation of their emergent condition. - New Patient This patient is new to me today: No - Critical Care Critical Care patient: No
[2017-05-08] MEDS ORDERED: SENNOSIDES/DOCUSATE COMBO (SENNA PLUS) TABLET (UD) PO PRN (18:55)
[2017-05-08] MEDS ORDERED: DOCUSATE SODIUM 100 MG CAPSULE (FP) PO PRN (18:55)
[2017-05-08] MEDS ORDERED: POLYETHYLENE GLYCOL 3350 119 GM BTL PO ONE (19:15)
[2017-05-08] MEDS: ACETAMINOPHEN 325 MG TABLET (FP) PO PRN (21:06)
[2017-05-08] MEDS: ATORVASTATIN CA 40 MG TABLET (FP) PO SCH (21:06)
--- NOTE | 2017-05-08 21:34 | EKG ---
Test Reason : Blood Pressure : / mmHG Vent. Rate : 083 BPM Atrial Rate : 083 BPM P-R Int : 134 ms QRS Dur : 072 ms QT Int : 364 ms P-R-T Axes : 007 022 016 degrees QTc Int : 427 ms NORMAL SINUS RHYTHM NORMAL ECG WHEN COMPARED WITH ECG OF 03-MAY-2017 05:37, NO SIGNIFICANT CHANGE WAS FOUND Confirmed by ANA MARIA PIMENTEL MD ([id number]) on 05/08/2017 9:33:53 PM Referred By: Confirmed By:ANA MARIA PIMENTEL MD
[2017-05-09] MEDS: CEFAZOLIN 1 GM/D5W 1 GM/50 ML BAG IVPB SCH ×2 (02:11→10:16)
[2017-05-09] MEDS: INSULIN (LEVEMIR) 100 UNITS/ML UNITS SQ SCH (07:03)
[2017-05-09] MEDS: INSULIN SLIDING SCALE (NOVOLOG) 1 VIAL SQ SCH ×4 (07:03→21:09)
[2017-05-09] MEDS: HEPARIN NA (PORCINE) 5,000 UNITS/ML 1ML VIAL SQ SCH ×3 (07:06→21:09)
[2017-05-09] MEDS ORDERED: INSULIN (NOVOLOG) ASPART 100 UNITS/ML 10ML VIAL ONE ×4 (07:29→17:19)
[2017-05-09] MEDS ORDERED: INSULIN (LEVEMIR) 100 UNITS/ML UNITS SQ ONE (08:42)
[2017-05-09] MEDS ORDERED: PT OWN MED DRAWER 7, Y5N ONE ×2 (08:43→17:19)
[2017-05-09] MEDS: ASPIRIN 81 MG CHEWABLE TABLETS PO SCH (10:16)
[2017-05-09] MEDS ORDERED: SODIUM CHLORIDE 500 ML IV STA (10:16)
[2017-05-09] MEDS: CLOPIDOGREL BISULFATE 75 MG TABLET (FP) PO SCH (10:16)
[2017-05-09] MEDS: POLYETHYLENE GLYCOL 3350 119 GM BTL PO SCH (10:17)
[2017-05-09] MEDS: CARVEDILOL 6.25 MG TABLET (FP) PO SCH ×2 (10:19→21:08)
[2017-05-09] MEDS: ACETAMINOPHEN 325 MG TABLET (FP) PO PRN (12:37)
[2017-05-09] MEDS: SODIUM CHLORIDE 1,000 ML IV SCH (12:41)
--- NOTE | 2017-05-09 13:56 | PN ---
Teaching Attending Note Name of Resident: Maksim Roman ATTENDING PHYSICIAN STATEMENT I saw and evaluated the patient. I reviewed the resident's note and discussed the case with the resident. I agree with the resident's findings and plan as documented. SUBJECTIVE: No fever or chills, has intermittent pain in L foot on lateral. no heel or toe pain. light headed last night when she stol. OBJECTIVE: NAD . CV: RRR, no MRG Lungs: CTAB Ext: L leg edema better . old surgical scar on medial knee , lower thigh and upper leg on L side L foot in a surgical dressing , was removed. L second toe amputation wound with stitches and minimal bloody drainage . DP 2+ b/l. PT not felt today ASSESSMENT AND PLAN: 56 y/o lady with h/o DM , HTN, PVD s/p bipas 12/31, and recent stent placement a week prior to presentation in [facility], also s/p L big toe amputation who presented straight to [facility] after leaving AMA form [facility]. she has L second toe gangrene 1- L 2nd toe gangrene: - s/p L toe amputation 05/06 - pain control - bone culture no growth , no need for Abx - cont ASa and plavix - surgical shoe . to bathroom 2- PVD, s/p bypass on 12/31 and stenting 05/01. - cont ASa and plavix - f/u vascular after dc - cont lipitor 3- DM : levemir and SSI to help with wound healing 4- HTN: hold norvas and coreg to light headedness and hypotension. will give IVF and check orthostatic VS this afternoon Dispo: pending dc to rehab
[2017-05-09] MEDS: amLODIPine BESYLATE 5 MG TABLET (FP) PO SCH (14:44)
--- NOTE | 2017-05-09 17:37 | PN ---
Physical Exam: SUBJECTIVE: Patient seen and examined No acute events overnight. Patient feels well this morning. Feels lightheaded when she stands up. Denies fever, chills OBJECTIVE: Vital Signs Period Temp Pulse Resp BP Sys/Zhang Pulse Ox Last 24 Hr 97.6 F-98.5 F 70-80 18-20 90-131/45-67 99-100 GENERAL: Awake, alert, and fully oriented, in no acute distress. HEAD: Normal with no signs of trauma. EYES: Pupils equal, round and reactive to light, extraocular movements intact, sclera anicteric, conjunctiva clear. No lid lag. EARS, NOSE, THROAT: Moist mucous membranes. NECK: supple, no jvd LUNGS: Breath sounds equal, clear to auscultation bilaterally. HEART: Regular rate and rhythm, normal S1 and S2, no murmurs, rubs, or gallops ABDOMEN: Soft, nontender, nondistended, +bs, no masses or organomegaly MUSCULOSKELETAL: No CVA tenderness. UPPER EXTREMITIES: 2+ pulses, warm, well-perfused. No cyanosis. No clubbing. No peripheral edema. LOWER EXTREMITIES: RLE 2+ DP, warm, well-perfused. No calf tenderness. No peripheral edema. LLE: 2+ DP, 1st toe amputation, 2nd amputation--c/d/i. Foot is warm, well- perfused 1+ edema, NEUROLOGICAL: Cranial nerves II-XII grossly intact. Normal speech. PSYCHIATRIC: Cooperative. Good eye contact. Appropriate mood and affect. SKIN: Warm, dry Laboratory Results - last 24 hr 05/08/17 05/08/17 05/09/17 17:09 20:51 02:18 POC Glucometer 223 262 149 05/09/17 05/09/17 06:59 12:32 POC Glucometer 159 282 Active Medications Generic Name Dose Route Start Last Admin Trade Name Freq PRN Reason Stop Dose Admin Acetaminophen 650 mg 05/06/17 12:34 05/09/17 12:37 Tylenol - PO 650 mg Q4H PRN Administration PAIN LEVEL 1-5 Amlodipine Besylate 5 mg 05/07/17 10:00 05/09/17 14:44 Norvasc - PO Not Given DAILY SEVERIANO Aspirin 81 mg 05/07/17 10:00 05/09/17 10:16 Asa - PO 81 mg DAILY SEVERIANO Administration Atorvastatin Calcium 40 mg 05/06/17 22:00 05/08/17 21:06 Lipitor - PO 40 mg HS SEVERIANO Administration Carvedilol 6.25 mg 05/06/17 22:00 05/09/17 10:19 Coreg - PO Not Given BID [facility] Clopidogrel Bisulfate 75 mg 05/07/17 10:00 05/09/17 10:16 Plavix - PO 75 mg DAILY SEVERIANO Administration Docusate Sodium 100 mg 05/08/17 18:55 05/09/17 10:16 Colace - PO 100 mg BID PRN Administration CONSTIPATION Heparin Sodium (Porcine) 5,000 unit 05/06/17 22:00 05/09/17 14:34 Heparin - SQ 5,000 unit TID SEVERIANO Administration Sodium Chloride 1,000 mls @ 100 mls/hr 05/09/17 11:45 05/09/17 12:41 Normal Saline - IV 100 mls/hr ASDIR SEVERIANO Administration Insulin Aspart 1 vial 05/06/17 16:30 05/09/17 12:34 Novolog Vial Sliding Scale - SQ 6 units ACHS SEVERIANO Administration Protocol Insulin Detemir 5 units 05/09/17 07:00 05/09/17 07:03 Levemir Vial SQ Not Given AM [facility] Ondansetron HCl 4 mg 05/06/17 12:34 Zofran Injection IVPUSH Q6H PRN NAUSEA AND/OR VOMITING Polyethylene Glycol 17 gm 05/09/17 10:00 05/09/17 10:17 Miralax (For Daily Use) - PO 17 gm DAILY SEVERIANO Administration Senna/Docusate Sodium 2 tablet 05/08/17 18:55 05/08/17 20:13 Pericolace - PO 2 tablet HS PRN Administration CONSTIPATION ASSESSMENT/PLAN: This is a 56 yo F, with PMH of severe PAD s/p bypass January, LLE stents this Wed at [facility], possible LLE DVT, IDDM, HTN and genital herpes, who presents due to L 2nd toe infection and gangrene x 1 mo. PAD with L 2nd toe dry gangrene s/p amputation POD 3 -Vascular surgery/podiatry consult -Lipitor 40 mg po daily -ASA/plavix restarted -Bone cultures ngtd -Surgical shoe -Pain control-- Tylenol -Walked 20 feet with PT RUQ pain/Suprapubic tenderness/Nausea, resolved -Abdomen u/s negative for any abnormalities -Lipase normal -Zofran prn IDDM -hold po agents (novolog 8 am, glipizide 5 daily) -BGM ACHS, ISS -A1c 7.8 HTN -resume coreg 6.25, norvasc 5 FEN -NS @ 75 -lytes stable -diabetic/sodium diet PPx -Heparin 5000 u sq tid Dispo: pending dc to rehab Visit type - Emergency Visit Emergency Visit: Yes ED Registration Date: 05/03/17 Care time: The patient presented to the Emergency Department on the above date and was hospitalized for further evaluation of their emergent condition. - New Patient This patient is new to me today: No - Critical Care Critical Care patient: No
--- NOTE | 2017-05-09 20:41 | PN ---
Progress Note (short form) - Note Progress Note: POD#3. No pain. VSS. Tmax=97.6 +dressing clean dry and intact, wbc=8.9 yesterday, retention sutures in place, normal post op. Post op shoe to left foot. May go to bathroom. Betadine Dry dressing change done. Can be DC from Podiatry standpoint if medically stable. No growth on cultures. Advised to follow up with me in wound care center on Tuesday AM. cbc with diff before she leaves in am.
[2017-05-09] MEDS: ATORVASTATIN CA 40 MG TABLET (FP) PO SCH (21:08)
[2017-05-10] MEDS: ACETAMINOPHEN 325 MG TABLET (FP) PO PRN ×2 (00:57→21:05)
[2017-05-10] MEDS: SODIUM CHLORIDE 1,000 ML IV SCH ×2 (01:00→11:53)
[2017-05-10] MEDS: INSULIN (LEVEMIR) 100 UNITS/ML UNITS SQ SCH (07:06)
[2017-05-10] MEDS: INSULIN SLIDING SCALE (NOVOLOG) 1 VIAL SQ SCH ×4 (07:07→23:31)
[2017-05-10] MEDS: HEPARIN NA (PORCINE) 5,000 UNITS/ML 1ML VIAL SQ SCH ×3 (07:07→23:30)
[2017-05-10] MEDS ORDERED: INSULIN (NOVOLOG) ASPART 100 UNITS/ML 10ML VIAL ONE ×2 (07:18→11:49)
[2017-05-10] MEDS ORDERED: INSULIN (LEVEMIR) 100 UNITS/ML UNITS SQ ONE (07:18)
--- NOTE | 2017-05-10 08:49 | PN ---
Progress Note (short form) - Note Progress Note: POD#4. No pain. VSS. Tmax=98.1 +dressing clean dry and intact, wbc=8.9 yesterday, retention sutures in place, normal post op. Post op shoe to left foot. May go to bathroom. Betadine Dry dressing change done. Can be DC from Podiatry standpoint if medically stable. No growth on cultures. Advised to follow up with me in wound care center on flo next Tuesday.
[2017-05-10] MEDS: ASPIRIN 81 MG CHEWABLE TABLETS PO SCH (11:30)
[2017-05-10] MEDS: CLOPIDOGREL BISULFATE 75 MG TABLET (FP) PO SCH (11:30)
[2017-05-10] MEDS: amLODIPine BESYLATE 5 MG TABLET (FP) PO SCH (11:31)
[2017-05-10] MEDS: POLYETHYLENE GLYCOL 3350 119 GM BTL PO SCH (11:31)
[2017-05-10] MEDS: CARVEDILOL 6.25 MG TABLET (FP) PO SCH ×2 (11:31→23:30)
--- NOTE | 2017-05-10 16:00 | PN ---
Physical Exam: SUBJECTIVE: Patient seen and examined No acute events overnight. Patient feels well this morning. Denies fever, chills OBJECTIVE: Vital Signs Period Temp Pulse Resp BP Sys/Zhang Pulse Ox Last 24 Hr 97.7 F-98.3 F 68-78 18-20 107-138/52-72 99 GENERAL: Awake, alert, and fully oriented, in no acute distress. HEAD: Normal with no signs of trauma. EYES: Pupils equal, round and reactive to light, extraocular movements intact, sclera anicteric, conjunctiva clear. No lid lag. EARS, NOSE, THROAT: Moist mucous membranes. NECK: supple, no jvd LUNGS: Breath sounds equal, clear to auscultation bilaterally. HEART: Regular rate and rhythm, normal S1 and S2, no murmurs, rubs, or gallops ABDOMEN: Soft, nontender, nondistended, +bs, no masses or organomegaly MUSCULOSKELETAL: No CVA tenderness. UPPER EXTREMITIES: 2+ pulses, warm, well-perfused. No cyanosis. No clubbing. No peripheral edema. LOWER EXTREMITIES: RLE 2+ DP, warm, well-perfused. No calf tenderness. No peripheral edema. LLE: 2+ DP, 1st toe amputation, 2nd amputation--c/d/i. Foot is warm, well- perfused 1+ edema, NEUROLOGICAL: Cranial nerves II-XII grossly intact. Normal speech. PSYCHIATRIC: Cooperative. Good eye contact. Appropriate mood and affect. SKIN: Warm, dry Laboratory Results - last 24 hr 05/09/17 05/09/17 05/10/17 17:32 20:43 07:05 POC Glucometer 187 228 223 05/10/17 11:03 POC Glucometer 282 Active Medications Generic Name Dose Route Start Last Admin Trade Name Freq PRN Reason Stop Dose Admin Acetaminophen 650 mg 05/06/17 12:34 05/10/17 00:57 Tylenol - PO 650 mg Q4H PRN Administration PAIN LEVEL 1-5 Aspirin 81 mg 05/07/17 10:00 05/10/17 11:30 Asa - PO 81 mg DAILY SEVERIANO Administration Atorvastatin Calcium 40 mg 05/06/17 22:00 05/09/17 21:08 Lipitor - PO 40 mg HS SEVERIANO Administration Carvedilol 6.25 mg 05/06/17 22:00 05/10/17 11:31 Coreg - PO 6.25 mg BID SEVERIANO Administration Clopidogrel Bisulfate 75 mg 05/07/17 10:00 05/10/17 11:30 Plavix - PO 75 mg DAILY SEVERIANO Administration Docusate Sodium 100 mg 05/08/17 18:55 05/09/17 10:16 Colace - PO 100 mg BID PRN Administration CONSTIPATION Heparin Sodium (Porcine) 5,000 unit 05/06/17 22:00 05/10/17 07:07 Heparin - SQ 5,000 unit TID SEVERIANO Administration Sodium Chloride 1,000 mls @ 100 mls/hr 05/09/17 11:45 05/10/17 11:53 Normal Saline - IV 100 mls/hr ASDIR SEVERIANO Administration Insulin Aspart 1 vial 05/06/17 16:30 05/10/17 11:51 Novolog Vial Sliding Scale - SQ 6 units ACHS SEVERIANO Administration Protocol Insulin Detemir 5 units 05/09/17 07:00 05/10/17 07:06 Levemir Vial SQ 5 units AM SEVERIANO Administration Lisinopril 5 mg 05/11/17 10:00 Prinivil PO DAILY SEVERIANO Ondansetron HCl 4 mg 05/06/17 12:34 Zofran Injection IVPUSH Q6H PRN NAUSEA AND/OR VOMITING Polyethylene Glycol 17 gm 05/09/17 10:00 05/10/17 11:31 Miralax (For Daily Use) - PO 17 gm DAILY SEVERIANO Administration Senna/Docusate Sodium 2 tablet 05/08/17 18:55 05/08/17 20:13 Pericolace - PO 2 tablet HS PRN Administration CONSTIPATION ASSESSMENT/PLAN: This is a 56 yo F, with PMH of severe PAD s/p bypass January, LLE stents this Wed at [facility], possible LLE DVT, IDDM, HTN and genital herpes, who presents due to L 2nd toe infection and gangrene x 1 mo. PAD with L 2nd toe dry gangrene s/p amputation POD 3 -Vascular surgery/podiatry consult -Lipitor 40 mg po daily -ASA/plavix restarted -Bone cultures ngtd -Surgical shoe -Pain control-- Tylenol RUQ pain/Suprapubic tenderness/Nausea, resolved -Abdomen u/s negative for any abnormalities -Lipase normal -Zofran prn IDDM -hold po agents (novolog 8 am, glipizide 5 daily) -BGM ACHS, ISS -A1c 7.8 HTN -resume coreg 6.25 -stop norvasc, will start lisinopril 5 mg tomorrow FEN -no ivf -lytes stable -diabetic/sodium diet PPx -Heparin 5000 u sq tid Dispo: pending dc to rehab Visit type - Emergency Visit Emergency Visit: Yes ED Registration Date: 05/03/17 Care time: The patient presented to the Emergency Department on the above date and was hospitalized for further evaluation of their emergent condition. - New Patient This patient is new to me today: No - Critical Care Critical Care patient: No
--- NOTE | 2017-05-10 18:36 | PN ---
Teaching Attending Note Name of Resident: Maksim Roman ATTENDING PHYSICIAN STATEMENT I saw and evaluated the patient. I reviewed the resident's note and discussed the case with the resident. I agree with the resident's findings and plan as documented. SUBJECTIVE: no fever or chills. ahs no abd pain , no pain in foot at all. no light headedness OBJ: NAD. CV: RRR, no MRG Lungs: CTAB Ext: L leg edema better. old surgical scar on medial knee , lower thigh and upper leg on L side L foot in a surgical dressing , was removed. L second toe amputation wound with stitches and minimal bloody drainage. DP 2+ b/l. PT not felt today ASSESSMENT AND PLAN: 56 y/o lady with h/o DM , HTN, PVD s/p bipas 12/31, and recent stent placement a week prior to presentation in [facility], also s/p L big toe amputation who presented straight to [facility] after leaving AMA form [facility]. she has L second toe gangrene 1- L 2nd toe gangrene: - s/p L toe amputation 05/06 - pain control - bone culture no growth , no need for Abx - cont ASa and plavix - surgical shoe . to bathroom 2- PVD, s/p bypass on 12/31 and stenting 05/[address] [facility] - cont ASa and plavix - f/u vascular after dc - cont lipitor 3- DM : levemir and SSI to help with wound healing . At dc can go back to her home oral meds 4- HTN: Norvasc and coreg held due to orthostatic hypotension. - will not resume home meds - will start low dose lisinopril tomorrow ( Dm and PVD ) Dispo: pending dc to rehab .
[2017-05-10] MEDS: ATORVASTATIN CA 40 MG TABLET (FP) PO SCH (23:31)
[2017-05-11] MEDS: HEPARIN NA (PORCINE) 5,000 UNITS/ML 1ML VIAL SQ SCH ×2 (06:15→14:01)
[2017-05-11] MEDS: INSULIN (LEVEMIR) 100 UNITS/ML UNITS SQ SCH (06:16)
[2017-05-11] MEDS: INSULIN SLIDING SCALE (NOVOLOG) 1 VIAL SQ SCH ×3 (06:17→17:31)
[2017-05-11] MEDS ORDERED: LISINOPRIL 5 MG TABLET (FP) PO SCH (10:00)
[2017-05-11] MEDS ORDERED: PT OWN MED DRAWER 7, Y5N ONE (10:33)
[2017-05-11] MEDS: CLOPIDOGREL BISULFATE 75 MG TABLET (FP) PO SCH (10:37)
[2017-05-11] MEDS: CARVEDILOL 6.25 MG TABLET (FP) PO SCH (10:37)
[2017-05-11] MEDS: ASPIRIN 81 MG CHEWABLE TABLETS PO SCH (10:37)
[2017-05-11] MEDS: POLYETHYLENE GLYCOL 3350 119 GM BTL PO SCH (10:38)
[2017-05-11] MEDS ORDERED: INSULIN (NOVOLOG) ASPART 100 UNITS/ML 10ML VIAL ONE (12:05)
[2017-05-11] MEDS ORDERED: ONDANSETRON *ODT* 4 MG TABLET SL ONE (14:45)
--- NOTE | 2017-05-11 15:14 | PATH ---
Surgical Pathology Report Patient Name: YAMIL LEWIS Med. Rec. #: [id number] /Age/Gender: 1960 (Age: 56) / F Account: [id number] Location: [facility] MED/SURG Taken: 05/06/2017 Received: 05/06/2017 Reported: 05/11/2017 Physicians: SAMMY Hall M.D. Specimen(s) Received A: LEFT 2ND TOE B: LEFT FOOT PROXIMAL BONE Clinical History Gangrene left second toe Final Diagnosis A. SECOND TOE, LEFT, AMPUTATION: DIGIT WITH ACUTE AND CHRONIC INFLAMMATION AND GANGRENOUS NECROSIS. ACUTE OSTEOMYELITIS. SURGICAL MARGINS ARE VIABLE. B. PROXIMAL BONE, FOOT, LEFT, EXCISION: BONE, DENSE FIBROCONNECTIVE TISSUE, AND CARTILAGE WITHOUT SIGNIFICANT PATHOLOGIC FINDINGS. NO EVIDENCE OF ACUTE OSTEOMYELITIS. PORTION OF UNREMARKABLE SKIN. Electronically Signed Tabatha Milligan M.D. Gross Description A. Received in formalin labeled "left second toe," is a 3.2 x 1.5 x 1.2 cm toe amputation specimen. The epidermal surface displays a black- honeycutt, gangrenous lesion extending to 0.1 cm from the skin and soft tissue margin. The lesion appears to involve the underlying bone. [employer] sections are submitted in 3 cassettes as follows: 1-lesion with underlying bone, following decalcification; 2-bone margin, following decalcification; 3-skin and soft tissue margin. B. Received in formalin labeled "proximal bone left foot," is a 1.5 x 1.2 x 1.0 cm amos portion of bone with smooth articular cartilage at one end and trabecular bone at the opposing end. Endless [employer] sections are submitted in 2 cassettes as follows: 1-end of bone with articular cartilage, following decalcification; 2-end of bone with trabecular bone, following decalcification. 05/09/201705/09/2017
--- NOTE | 2017-05-11 16:24 | PN ---
Physical Exam: SUBJECTIVE: Patient seen and examined No acute events overnight. Patient feels well this morning. Denies fever, chills , chest pain, sob OBJECTIVE: Vital Signs Period Temp Pulse Resp BP Sys/Zhang Pulse Ox Last 24 Hr 97.8 F-98.6 F 73-79 18-20 97-131/49-59 98 GENERAL: Awake, alert, and fully oriented, in no acute distress. HEAD: Normal with no signs of trauma. EYES: Pupils equal, round and reactive to light, extraocular movements intact, sclera anicteric, conjunctiva clear. No lid lag. EARS, NOSE, THROAT: Moist mucous membranes. NECK: supple, no jvd LUNGS: Breath sounds equal, clear to auscultation bilaterally. HEART: Regular rate and rhythm, normal S1 and S2, no murmurs, rubs, or gallops ABDOMEN: Soft, nontender, nondistended, +bs, no masses or organomegaly MUSCULOSKELETAL: No CVA tenderness. UPPER EXTREMITIES: 2+ pulses, warm, well-perfused. No cyanosis. No clubbing. No peripheral edema. LOWER EXTREMITIES: RLE 2+ DP, warm, well-perfused. No calf tenderness. No peripheral edema. LLE: 2+ DP, 1st toe amputation, 2nd amputation--c/d/i. Foot is warm, well- perfused 1+ edema, NEUROLOGICAL: Cranial nerves II-XII grossly intact. Normal speech. PSYCHIATRIC: Cooperative. Good eye contact. Appropriate mood and affect. SKIN: Warm, dr Laboratory Results - last 24 hr 05/10/17 05/10/17 05/11/17 17:03 21:02 06:14 POC Glucometer 210 230 198 05/11/17 05/11/17 11:13 13:59 POC Glucometer 318 172 Active Medications Generic Name Dose Route Start Last Admin Trade Name Freq PRN Reason Stop Dose Admin Acetaminophen 650 mg 05/06/17 12:34 05/10/17 21:05 Tylenol - PO 650 mg Q4H PRN Administration PAIN LEVEL 1-5 Aspirin 81 mg 05/07/17 10:00 05/11/17 10:37 Asa - PO 81 mg DAILY SEVERIANO Administration Atorvastatin Calcium 40 mg 05/06/17 22:00 05/10/17 23:31 Lipitor - PO 40 mg HS SEVERIANO Administration Carvedilol 6.25 mg 05/06/17 22:00 05/11/17 10:37 Coreg - PO 6.25 mg BID SEVERIANO Administration Clopidogrel Bisulfate 75 mg 05/07/17 10:00 05/11/17 10:37 Plavix - PO 75 mg DAILY SEVERIANO Administration Docusate Sodium 100 mg 05/08/17 18:55 05/09/17 10:16 Colace - PO 100 mg BID PRN Administration CONSTIPATION Heparin Sodium (Porcine) 5,000 unit 05/06/17 22:00 05/11/17 14:01 Heparin - SQ 5,000 unit TID SEVERIANO Administration Insulin Aspart 1 vial 05/06/17 16:30 05/11/17 12:10 Novolog Vial Sliding Scale - SQ 8 units ACHS SEVERIANO Administration Protocol Insulin Detemir 5 units 05/09/17 07:00 05/11/17 06:16 Levemir Vial SQ 5 units AM SEVERIANO Administration Lisinopril 5 mg 05/11/17 10:00 05/11/17 10:37 Prinivil PO 5 mg DAILY SEVERIANO Administration Ondansetron HCl 4 mg 05/06/17 12:34 Zofran Injection IVPUSH Q6H PRN NAUSEA AND/OR VOMITING Polyethylene Glycol 17 gm 05/09/17 10:00 05/11/17 10:38 Miralax (For Daily Use) - PO Not Given DAILY SEVERIANO Senna/Docusate Sodium 2 tablet 05/08/17 18:55 05/08/17 20:13 Pericolace - PO 2 tablet HS PRN Administration CONSTIPATION ASSESSMENT/PLAN: This is a 56 yo F, with PMH of severe PAD s/p bypass January, LLE stents this Wed at [facility], possible LLE DVT, IDDM, HTN and genital herpes, who presents due to L 2nd toe infection and gangrene x 1 mo. PAD with L 2nd toe dry gangrene s/p amputation POD 3 -Vascular surgery/podiatry consult -Lipitor 40 mg po daily -ASA/plavix restarted -Bone cultures ngtd -Surgical shoe -Pain control-- Tylenol RUQ pain/Suprapubic tenderness/Nausea, resolved -Abdomen u/s negative for any abnormalities -Lipase normal -Zofran prn IDDM -hold po agents (novolog 8 am, glipizide 5 daily) -BGM ACHS, ISS -A1c 7.8 HTN -Continue coreg 6.25 -Continue lisinopril 5 mg FEN -no ivf -lytes stable -diabetic/sodium diet PPx -Heparin 5000 u sq tid Dispo: pending dc to rehab Visit type - Emergency Visit Emergency Visit: Yes ED Registration Date: 05/03/17 Care time: The patient presented to the Emergency Department on the above date and was hospitalized for further evaluation of their emergent condition. - New Patient This patient is new to me today: No - Critical Care Critical Care patient: No
--- NOTE | 2017-05-11 17:26 | DS ---
Physical Exam: Selected Entries 05/11/17 05/11/17 09:00 10:50 Temperature 97.8 F Pulse Rate 76 Respiratory 18 Rate Blood Pressure 116/59 O2 Sat by Pulse 98 Oximetry (%) Oxygen Delivery Room Air Method Laboratory Tests 05/02/17 05/04/17 05/04/17 21:01 07:55 07:55 WBC Hgb Hct Plt Count ESR INR PTT (Actin FS) Sodium Potassium Chloride Carbon Dioxide Anion Gap BUN Creatinine POC Glucometer Random Glucose Hemoglobin A1c % 7.8 H Calcium Troponin I C-Reactive Protein Triglycerides 155 Cholesterol 78 Total LDL Cholesterol 162 H HDL Cholesterol 49 Lipase Urine Glucose (UA) 3+ H Urine Blood Negative Urine Nitrite Negative Urine Bilirubin Negative Urine Urobilinogen Negative Ur Leukocyte Esterase 3+ H Urine WBC (Auto) 95 Urine RBC (Auto) 9 Ur Epithelial Cells Rare Urine Mucus Rare Stool Occult Blood 05/04/17 05/05/17 05/05/17 16:45 05:35 18:00 WBC Hgb Hct Plt Count ESR INR PTT (Actin FS) Sodium Potassium Chloride Carbon Dioxide Anion Gap BUN Creatinine POC Glucometer Random Glucose Hemoglobin A1c % Calcium Troponin I C-Reactive Protein 4.5 H Triglycerides Cholesterol Total LDL Cholesterol HDL Cholesterol Lipase 72 L Urine Glucose (UA) Urine Blood Urine Nitrite Urine Bilirubin Urine Urobilinogen Ur Leukocyte Esterase Urine WBC (Auto) Urine RBC (Auto) Ur Epithelial Cells Urine Mucus Stool Occult Blood Negative 05/06/17 05/06/17 05/07/17 06:30 06:30 06:00 WBC Hgb Hct Plt Count ESR > 140 H INR 1.08 PTT (Actin FS) Sodium 139 Potassium 4.2 Chloride 103 Carbon Dioxide 21 Anion Gap 15 BUN 10 Creatinine 0.7 POC Glucometer Random Glucose 187 H Hemoglobin A1c % Calcium 8.6 Troponin I C-Reactive Protein Triglycerides Cholesterol Total LDL Cholesterol HDL Cholesterol Lipase Urine Glucose (UA) Urine Blood Urine Nitrite Urine Bilirubin Urine Urobilinogen Ur Leukocyte Esterase Urine WBC (Auto) Urine RBC (Auto) Ur Epithelial Cells Urine Mucus Stool Occult Blood 05/07/17 05/08/17 05/08/17 19:30 06:30 06:30 WBC 8.9 Hgb 8.7 L Hct 25.7 L Plt Count 222 ESR INR PTT (Actin FS) 44.7 H D Sodium Potassium Chloride Carbon Dioxide Anion Gap BUN Creatinine POC Glucometer Random Glucose Hemoglobin A1c % Calcium Troponin I < 0.02 C-Reactive Protein Triglycerides Cholesterol Total LDL Cholesterol HDL Cholesterol Lipase Urine Glucose (UA) Urine Blood Urine Nitrite Urine Bilirubin Urine Urobilinogen Ur Leukocyte Esterase Urine WBC (Auto) Urine RBC (Auto) Ur Epithelial Cells Urine Mucus Stool Occult Blood 05/11/17 13:59 WBC Hgb Hct Plt Count ESR INR PTT (Actin FS) Sodium Potassium Chloride Carbon Dioxide Anion Gap BUN Creatinine POC Glucometer 172 Random Glucose Hemoglobin A1c % Calcium Troponin I C-Reactive Protein Triglycerides Cholesterol Total LDL Cholesterol HDL Cholesterol Lipase Urine Glucose (UA) Urine Blood Urine Nitrite Urine Bilirubin Urine Urobilinogen Ur Leukocyte Esterase Urine WBC (Auto) Urine RBC (Auto) Ur Epithelial Cells Urine Mucus Stool Occult Blood Microbiology 05/06/17 12:00 Toe - Left Second Gram Stain - Final 05/06/17 12:00 Toe - Left Second Wound Culture - Final NO GROWTH AFTER 48 HOURS INCUBATION 05/06/17 12:00 Bone Gram Stain - Final 05/06/17 12:00 Bone Anaerobic Culture - Final NO GROWTH OF AEROBIC ORGANISMS AFTER 48 HOURS INCUBATION NO ANAEROBES WERE ISOLATED 05/03/17 12:25 Blood - Peripheral Venous Blood Culture - Final NO GROWTH AFTER 5 DAYS INCUBATION 05/02/17 20:53 Blood - Peripheral Venous Blood Culture - Final NO GROWTH AFTER 5 DAYS INCUBATION Imaging LLE Duplex:Impression: There is no evidence of deep venous thromboses in both lower extremities. Findings suggestive of a left groin lymph node measuring 2.6 x 0.7 cm. Correlate clinically for further evaluation. Arterial Duplex lower extremity: IMPRESSION: 1. Patent stent graft within the left common femoral and superficial femoral arteries. 2. Greater than doubling of the peak systolic velocity in the proximal left popliteal artery suggests upstream hemodynamically significant stenosis in the region of the distal SFA. 3. Greater than doubling of peak systolic velocity in the proximal right popliteal artery suggests upstream hemodynamically significant stenosis in the region of the distal SFA. U/S abdomen: IMPRESSION: No definite sonographic abnormality is identified. CXR: IMPRESSION: No acute cardiopulmonary pathology. Old Granulomatous disease. Foot XRAY: IMPRESSION: Postsurgical changes as described above. No evidence of bony erosions or subcutaneous gas. Correlate with bone scan or follow-up imaging. Foot XRAY: Impression: Status post left second toe removal with metatarsal remaining. Soft tissue air and swelling. HOSPITAL COURSE: Date of Admission:05/03/17 Date of Discharge: [birth year]/28/[birth year] 56 yo F, with PMH of severe PAD s/p bypass and recent stents, possible LLE DVT, IDDM, HTN and genital herpes, who presented due to L 2nd toe dry gangrene x1 month. Patient had LLE bypass (possibly fem-pop based on scar) and 1st L toe amputation at [facility] in January. One week prior to admission, she underwent perc intervention, likely with stent placement, which restored circulation to L foot. There was plan for amputation of toe but patient did not like the surgeon so she left AMA. Patient admitted for dry gangrene. She underwent Left 2nd toe amputation on . Patient was restarted on aspirin and plavix. Patient will be d/c to rehab with follow up with podiatry, vascular surgery, and PCP. For her HTN, patient started on low dose lisinopril and for her DM, she was started on levemir 5 po AM and will continue her glipizide. Patient also started on lipitor 40 mg here. Minutes to complete discharge: 45 <Maksim Roman - Last Filed: 05/11/17 17:27> Physical Exam: Patient seen and examined agree with the resident's note. Vital Signs Temperature 97.5 F L 05/11/17 17:28 Pulse Rate 80 05/11/17 17:28 Respiratory Rate 20 05/11/17 17:28 Blood Pressure 104/55 05/11/17 17:28 O2 Sat by Pulse Oximetry (%) 98 05/11/17 09:00 CBCD WBC 8.9 K/mm3 (4.0-10.0) 05/08/17 06:30 RBC 2.89 M/mm3 (3.60-5.2) L 05/08/17 06:30 Hgb 8.7 GM/dL (10.7-15.3) L 05/08/17 06:30 Hct 25.7 % (32.4-45.2) L 05/08/17 06:30 MCV 89.0 fl (80-96) 05/08/17 06:30 MCHC 34.0 g/dl (32.0-36.0) 05/08/17 06:30 RDW 13.2 % (11.6-15.6) 05/08/17 06:30 Plt Count 222 K/MM3 (134-434) 05/08/17 06:30 MPV 8.9 fl (7.5-11.1) 05/08/17 06:30 CMP Sodium 139 mmol/L (136-145) 05/07/17 06:00 Potassium 4.2 mmol/L (3.5-5.1) 05/07/17 06:00 Chloride 103 mmol/L (98-107) 05/07/17 06:00 Carbon Dioxide 21 mmol/L (21-32) 05/07/17 06:00 Anion Gap 15 (8-16) 05/07/17 06:00 BUN 10 mg/dL (7-18) 05/07/17 06:00 Creatinine 0.7 mg/dL (0.55-1.02) 05/07/17 06:00 Creat Clearance w eGFR > 60 (>60) 05/02/17 20:53 Random Glucose 187 mg/dL (74-106) H 05/07/17 06:00 Calcium 8.6 mg/dL (8.5-10.1) 05/07/17 06:00 Total Bilirubin 0.7 mg/dL (0.2-1.0) 05/02/17 20:53 AST 8 U/L (15-37) L 05/02/17 20:53 ALT 13 U/L (12-78) 05/02/17 20:53 Alkaline Phosphatase 92 U/L (45-117) 05/02/17 20:53 Total Protein 7.1 g/dl (6.4-8.2) 05/02/17 20:53 Albumin 3.1 g/dl (3.4-5.0) L 05/02/17 20:53 CARDIAC ENZYMES Troponin I < 0.02 ng/ml (0.00-0.05) 05/07/17 19:30 Home Medications Medication Instructions Recorded Amlodipine Besylate [Norvasc -] 5 mg PO DAILY 05/03/17 Aspirin [ASA -] 81 mg PO DAILY 05/03/17 Carvedilol [Coreg] 6.25 mg PO BID 05/03/17 Glipizide 5 mg PO DAILY 05/03/17 Clopidogrel Bisulfate [Plavix] 75 mg PO DAILY 05/04/17 Atorvastatin Ca [Lipitor] 40 mg PO HS #30 tablet 05/10/17 Insulin (Levemir) [Levemir Vial] 5 units SQ AM #10 ml 05/10/17 Patient is being discharged to rehab. with f/u visits with her MDs. <John Ndiaye - Last Filed: 05/11/17 19:59> Discharge Summary Reason For Visit: GANGRENE Current Active Problems Diabetes mellitus (Chronic) HTN (hypertension) (Chronic) PAD (peripheral artery disease) (Chronic) - Home Medications Comprehensive Discharge Medication List: Ambulatory Orders Amlodipine Besylate [Norvasc -] 5 mg PO DAILY 05/03/17 Aspirin [ASA -] 81 mg PO DAILY 05/03/17 Carvedilol [Coreg] 6.25 mg PO BID 05/03/17 Glipizide 5 mg PO DAILY 05/03/17 Clopidogrel Bisulfate [Plavix] 75 mg PO DAILY 05/04/17 Atorvastatin Ca [Lipitor] 40 mg PO HS #30 tablet 05/10/17 Insulin (Levemir) [Levemir Vial] 5 units SQ AM #10 ml 05/10/17 <Maksim Roman - Last Filed: 05/11/17 17:27> - Home Medications Comprehensive Discharge Medication List: Ambulatory Orders Amlodipine Besylate [Norvasc -] 5 mg PO DAILY 05/03/17 Aspirin [ASA -] 81 mg PO DAILY 05/03/17 Carvedilol [Coreg] 6.25 mg PO BID 05/03/17 Glipizide 5 mg PO DAILY 05/03/17 Clopidogrel Bisulfate [Plavix] 75 mg PO DAILY 05/04/17 Atorvastatin Ca [Lipitor] 40 mg PO HS #30 tablet 05/10/17 Insulin (Levemir) [Levemir Vial] 5 units SQ AM #10 ml 05/10/17 <John Ndiaye - Last Filed: 05/11/17 19:59> Condition: Stable - Instructions Diet, Activity, Other Instructions: You were in the hospital for your left 2nd toe. You underwent amputation on . Please follow up with the resident clinic, Dr. Gonsalez, and Dr. Tran within 1 week after you finish rehab. Please continue the following medications: Aspirin 81 mg daily Plavix 75 mg daily Levemir 5 units in the morning Glipizide 5 mg daily Lipitor 40 mg daily Coreg 6.25 mg twice per day Norvasc 5 mg daily Wear a post op shoe to your left foot. If you have chest pain, shortness of breath, or any new/worsening symptoms please come back to the hospital immediately. Follow up with Dr. Coles next tuesday in [facility]ound care center Referrals: Randell Haney MD [Staff Physician] - Josafat Tran DPM [Staff Physician] - 05/17/17 2:00 pm Rah Gonsalez MD [Staff Physician] - Disposition: LONGTERM FACILITY This patient is new to me today: Yes Date on this admission: 05/11/17 Emergency Visit: No Critical Care patient: No - Discharge Referral Referred to [facility] Med P.C.: No <Maksim Roman - Last Filed: 05/11/17 17:27>
[2017-05-11 17:31] VITALS: BP 104/55; PULSE 80; TEMP 97.5
== END 2017-05-11 18:29 | DRG 314 ==
LOC: JER 18:20 → JERBED 05-03 07:13 → J8W 05-03 15:38
PROVIDERS: ADMIT Internal Medicine; ATTEND Internal Medicine
PROC: 0Y6S0Z1 Detachment at Left 2nd Toe, High, Open Approach (ICD-10-PCS; principal; 2017-05-06 10:00)
PROC: 0QBR0ZX Excision of Left Toe Phalanx, Open Approach, Diagnostic (ICD-10-PCS; 2017-05-06 10:00)
DX: E11.52 Type 2 diabetes mellitus with diabetic peripheral angiopathy with gangrene (principal); I96 Gangrene, not elsewhere classified; I10 Essential (primary) hypertension; R10.11 Right upper quadrant pain; Z79.4 Long term (current) use of insulin
CPT/HCPCS: 36415; 71045-TC-FY; 73630-TC-LT; 76700-TC; 80048; 80053; 80061; 81003; 81015; 82272; 82962; 83036; 83690; 83721; 83735; 84100; 84484; 85025; 85027; 85610; 85651; 85730; 86140; 86850; 86900; 86901; 87040; 87070; 87075; 87205; 88305-TC; 88307-TC; 88311-TC; 93005; 93010; 93925-TC; 93970-TC; 94760; 97116-GP; 97161-GP; 99285-25; J1644; J7030

== ENCOUNTER 2017-06-30 13:26 | Emergency (ER) | payer OTHER ==
[2017-06-30 13:55] VITALS: BMI 28.3
[2017-06-30] MEDS ORDERED: ALBUTEROL SO4 2.5/IPRATROPIUM 0.5 INH SOL 3 ML VIAL.NEB. NEB ONE ×2 (15:47→15:52)
--- NOTE | 2017-06-30 15:49 | PDOC ---
History of Present Illness - General Chief Complaint: Blood Sugar Problem Stated Complaint: (BLOOD SUGAR PROBLEM) Time Seen by Provider: 06/30/17 15:25 History Source: Patient Exam Limitations: No Limitations - History of Present Illness Initial Comments: 06/30/17 15:45 Patient is a 56F with history of HTN, IDDM, obesity, 2 toe amputations and smoking history here today complaining of dizziness that onset this morning when she woke up. She states that her main concern was that her blood sugar was too high, but her machine was broken. She states that she is no longer dizzy. She also states that while in the ED, she had an episode of substernal chest pain that felt like a pressure that lasted for 2 minutes before resolving. Denies associated shortness of breath. Denies leg swelling. Denies history of blood clots. Endorses subjective fever and chills. Denies cough, nausea, vomiting. Past History - Past Medical History Allergies/Adverse Reactions: Allergies Allergy/AdvReac Type Severity Reaction Status Date / Time Iodinated Contrast- Oral and Allergy Verified 06/30/17 13:50 IV Dye Home Medications: Ambulatory Orders Amlodipine Besylate [Norvasc -] 5 mg PO DAILY 05/03/17 Aspirin [ASA -] 81 mg PO DAILY 05/03/17 Carvedilol [Coreg] 6.25 mg PO BID 05/03/17 Glipizide 5 mg PO DAILY 05/03/17 Clopidogrel Bisulfate [Plavix] 75 mg PO DAILY 05/04/17 Atorvastatin Ca [Lipitor] 40 mg PO HS #30 tablet 05/10/17 Insulin (Levemir) [Levemir Vial] 5 units SQ AM #10 ml 05/10/17 Escitalopram Oxalate [Lexapro -] 1 tab PO DAILY 05/31/17 COPD: No Diabetes: Yes HTN: Yes Hypercholesterolemia: Yes - Suicide/Smoking/Psychosocial Hx Smoking History: Never smoked Have you smoked in the past 12 months: No Information on smoking cessation initiated: No Hx Alcohol Use: No Drug/Substance Use Hx: No Substance Use Type: None Review of Systems - Review of Systems Comments:: 06/30/17 15:48 GENERAL/CONSTITUTIONAL: Positive for fever or chills. No weakness. HEAD, EYES, EARS, NOSE AND THROAT: No change in vision. No sore throat. CARDIOVASCULAR: No chest pain or shortness of breath RESPIRATORY: No cough, wheezing, or hemoptysis. GASTROINTESTINAL: No nausea, vomiting, diarrhea or constipation. GENITOURINARY: No dysuria, frequency, or change in urination. MUSCULOSKELETAL: No joint or muscle swelling or pain. No neck or back pain. SKIN: No rash NEUROLOGIC: No headache, loss of consciousness, or change in strength/sensation. HEMATOLOGIC/LYMPHATIC: No anemia, easy bleeding, or history of blood clots. ALLERGIC/IMMUNOLOGIC: No hives or skin allergy. *Physical Exam - Vital Signs Last Vital Signs Temp Pulse Resp BP Pulse Ox 98.4 F 73 18 115/60 100 06/30/17 13:51 06/30/17 13:51 06/30/17 13:51 06/30/17 13:51 06/30/17 13:51 - Physical Exam Comments: 06/30/17 15:49 GENERAL: Awake, alert, and fully oriented, in no acute distress HEAD: No signs of trauma, normocephalic, atraumatic EYES: PERRLA, EOMI, sclera anicteric, conjunctiva clear ENT: Auricles normal inspection, hearing grossly normal, nares patent, oropharynx clear without exudates. Moist mucosa NECK: Normal ROM, supple, no lymphadenopathy, JVD, or masses LUNGS: No distress, speaks full sentences, scattered wheezes bilaterally. HEART: Regular rate and rhythm, normal S1 and S2, no murmurs, rubs or gallops, peripheral pulses normal and equal bilaterally. ABDOMEN: Soft, nontender, normoactive bowel sounds. No guarding, no rebound. No masses EXTREMITIES: Normal inspection, Normal range of motion, no edema. No clubbing or cyanosis. NEUROLOGICAL: Cranial nerves II through XII grossly intact. Normal speech, normal gait, no focal sensorimotor deficits SKIN: Warm, Dry, normal turgor, no rashes or lesions noted. Heart Score/ECG Review - History History: Slightly suspicious - Electrocardiogram EKG: Normal - Age Age: 45-65 - Risk Factors Risk Factors Heart Score: Yes Hx Hypertension, Yes Hx Diabetes, Yes Smoking History, Yes Hx Obesity Based on the list above the patient has:: >/=3 risk factors or Hx atherosclerotic disease - Troponin Troponin: </= normal limit - Score Heart Score - Total: 3 ED Treatment Course - LABORATORY CBC & Chemistry Diagram: 06/30/17 15:45 06/30/17 15:45 - ADDITIONAL ORDERS Additional order review: Laboratory Results 06/30/17 14:07 POC Glucometer 240.05936 06/30/17 14:07 POC Glucometer 240.19443 - RADIOLOGY Radiology Studies Ordered: Category Date Time Status CHEST PA & LAT [RAD] Stat Radiology 06/30/17 15:36 Ordered Medical Decision Making - Medical Decision Making 06/30/17 15:49 Patient is 56F with history of IDDM, HTN, obesity, smoking and diabetic toe amputation here today with atypical chest pain. Vital signs stable and normal. HEART score of 3 based on risk factors and age alone, will do cardiac workup and two trop. Given symptoms do not suspect PE. Does have scattered wheezes bilaterally. D/C if workup negative. Will treat with duonebs. 06/30/17 16:07 EKG shows normal sinus rhythm with rate of 69. No st elevations/depressions. No significant t wave abnormalities. Normal QRS/VT/QTc intervals. 06/30/17 20:41 First trop negative. Second trop negative. HEART score of 3. Will discharge with return precautions and instructions to follow up with PCP. *DC/Admit/Observation/Transfer Diagnosis at time of Disposition: Chest pain - Discharge Dispostion Disposition: HOME Condition at time of disposition: Good Decision to Admit order: No - Referrals - Patient Instructions Printed Discharge Instructions: DI for Chest Pain Additional Instructions: Please return if you have any new, worsening or concerning symptoms. Please call your primary care physician to set up a follow appointment in the next week. If you do not have a primary care physician, a number has been provided for you. - Post Discharge Activity
[2017-06-30 15:59] LABS: BASO % 0.8 % (0-2.0); EOS % 3.4 % (0-4.5); HEMATOCRIT 31.7 % (32.4-45.2); HEMOGLOBIN 10.5 GM/dL (10.7-15.3); LYMPH % 33.2 % (8-40); MCH 28.9 pg (25.7-33.7); MCHC 33.1 g/dl (32.0-36.0); MEAN CELL VOLUME 87.3 fl (80-96); MEAN PLT VOLUME 8.4 fl (7.5-11.1); MONO % 7.6 % (3.8-10.2); PLATELET COUNT 292 K/MM3 (134-434); RBC 3.64 M/mm3 (3.60-5.2); RDW 13.6 % (11.6-15.6); WHITE BLOOD COUNT 7.6 K/mm3 (4.0-10.0)
[2017-06-30 16:14] LABS: INR 1.05 (0.82-1.09); PROTHROMBIN TIME (PATIENT) 11.9 SEC (9.7-13.0)
[2017-06-30 16:16] LABS: ALBUMIN 3.4 g/dl (3.4-5.0); ANION GAP 8 (8-16); BILIRUBIN,TOTAL 0.5 mg/dL (0.2-1.0); BLOOD UREA NITROGEN 19 mg/dL (7-18); CALCIUM 9.3 mg/dL (8.5-10.1); CHLORIDE 101 mmol/L (98-107); CO2 30 mmol/L (21-32); CREATININE 0.8 mg/dL (0.55-1.02); GLUCOSE,RANDOM 208 mg/dL (74-106); MAGNESIUM 2.2 mg/dL (1.8-2.4); POTASSIUM 4.9 mmol/L (3.5-5.1); SGOT/AST 15 U/L (15-37); SGPT/ALT 17 U/L (12-78); SODIUM 139 mmol/L (136-145); TOT PROT 7.5 g/dl (6.4-8.2)
[2017-06-30 16:26] LABS: ALK PHOS 108 U/L (45-117)
--- NOTE | 2017-06-30 17:17 | PDOC ---
Attending Attestation - Resident Resident Name: Roma Chan - ED Attending Attestation I have performed the following: I have examined & evaluated the patient, The case was reviewed & discussed with the resident, I agree w/resident's findings & plan, Exceptions are as noted - HPI HPI: 06/30/17 17:12 "The patient is a 56 year old female, with a significant past medical history of insulin dependent diabetes, hypertension, and genital herpes, who presents to the emergency department with transient chest pain earlier this afternoon. The patient reports she initially activated EMS, because she was worried about her blood sugar. She states that her BGM machine was broken and she was nervous about her blood sugar. Patient reports becoming anxious and developing nonradiating midsternal chest pain, which she describes as a rock sitting on her chest. The pain lasted a few minutes before resolving spontaneously. She denies shortness of breath, denies any diaphoresis, palpitations, lower extremity edema, or calf cramping. She denies any fever, chills, cough, headache , or dizziness. She denies any recent travel or sick contacts. " - Physicial Exam PE: 06/30/17 17:17 "GENERAL: Awake, alert, and fully oriented, in no acute distress. HEAD: No signs of trauma EYES: PERRLA, EOMI, sclera anicteric, conjunctiva clear ENT: Auricles normal inspection, hearing grossly normal, nares patent, oropharynx clear without exudates. Moist mucosa NECK: Nontender, no stepoffs, Normal ROM, supple, no lymphadenopathy, JVD, or masses LUNGS: Breath sounds equal, clear to auscultation bilaterally. No wheezes, and no crackles HEART: Regular rate and rhythm, normal S1 and S2, no murmurs, rubs or gallops ABDOMEN: Soft, nontender, normoactive bowel sounds. No guarding, no rebound. No masses EXTREMITIES: Normal range of motion, no edema. No clubbing or cyanosis. No cords, erythema, or tenderness NEUROLOGICAL: Cranial nerves II through XII intact. 5/5 strength and sensation in all extremities, Normal speech, normal gait, normal cerebellar function SKIN: Warm, Dry, normal turgor, no rashes or lesions noted. " - Medical Decision Making 06/30/17 17:17 56 F with transient episode of chest pain in the context of worrying about her sugar. Likely anxiety related. However, pt with several cardiac risk factors, so will r/o ACS with serial trops. - Labs, trop - CXR - Reassess Labs wnl, trop negative x 1 Pt signed out to oncoming attending at 5pm, pending repeat troponin and re- evaluation.
--- NOTE | 2017-06-30 19:08 | PDOC ---
*Physical Exam - Vital Signs Last Vital Signs Temp Pulse Resp BP Pulse Ox 98.4 F 73 18 115/60 100 06/30/17 13:51 06/30/17 13:51 06/30/17 13:51 06/30/17 13:51 06/30/17 13:51 - Physical Exam Comments: 06/30/17 20:49 gen: aaox3, nad heart: +s1s2 reg Lungs: cta b/l abd: soft, nt/nd +bs ext: hard sole shoe to LE , walks with a cane neuro: no focal deficits ED Treatment Course - LABORATORY CBC & Chemistry Diagram: 06/30/17 15:45 06/30/17 15:45 - ADDITIONAL ORDERS Additional order review: Laboratory Results 06/30/17 06/30/17 06/30/17 15:45 15:45 14:07 PT with INR 11.90 INR 1.05 Sodium 139 Potassium 4.9 Chloride 101 Carbon Dioxide 30 Anion Gap 8 BUN 19 H Creatinine 0.8 Creat Clearance w eGFR > 60 POC Glucometer 240.09241 Random Glucose 208 H Calcium 9.3 Magnesium 2.2 Total Bilirubin 0.5 AST 15 ALT 17 Alkaline Phosphatase 108 Creatine Kinase 68 Troponin I < 0.02 Total Protein 7.5 Albumin 3.4 06/30/17 06/30/17 15:45 14:07 RBC 3.64 MCV 87.3 MCHC 33.1 RDW 13.6 MPV 8.4 Neutrophils % 55.0 Lymphocytes % 33.2 D Monocytes % 7.6 Eosinophils % 3.4 Basophils % 0.8 POC Glucometer 240.69118 - Medications Given in the ED: ED Medications Discontinued Medications Generic Name Dose Route Start Last Admin Trade Name Freq PRN Reason Stop Dose Admin Albuterol/Ipratropium 1 amp 06/30/17 15:47 06/30/17 15:48 Duoneb - NEB 06/30/17 15:48 1 amp ONCE ONE Administration Medical Decision Making - Medical Decision Making 06/30/17 20:49 a/p: 56yo female with brief cp today after getting nervous her glucometer wasnt working -no cp while in the ed pt signed out from the prior attending pending repeat trop repeat trop negative pt requesting to go home 06/30/17 20:51 discussed all labs with the patient pt is stable for d/c to home answered all quesitons *DC/Admit/Observation/Transfer Diagnosis at time of Disposition: Chest pain - Discharge Dispostion Disposition: HOME - Referrals - Patient Instructions Printed Discharge Instructions: DI for Chest Pain Additional Instructions: Please return if you have any new, worsening or concerning symptoms. Please call your primary care physician to set up a follow appointment in the next week. If you do not have a primary care physician, a number has been provided for you. - Post Discharge Activity - Attestations Physician Attestion: 06/30/17 20:51 I, Dr. Antionette Clinton, DO, attest that this document has been prepared under my direction and personally reviewed by me in its entirety. I further attest, that it accurately reflects all work, treatment, procedures and medical decision -making performed by me.
[2017-06-30 21:19] VITALS: BP 121/58; PULSE 86; TEMP 98.2
--- NOTE | 2017-07-01 11:18 | EKG ---
Test Reason : Blood Pressure : / mmHG Vent. Rate : 069 BPM Atrial Rate : 069 BPM P-R Int : 148 ms QRS Dur : 078 ms QT Int : 402 ms P-R-T Axes : 026 021 044 degrees QTc Int : 430 ms NORMAL SINUS RHYTHM NORMAL ECG WHEN COMPARED WITH ECG OF 07-MAY-2017 19:38, NO SIGNIFICANT CHANGE WAS FOUND Confirmed by SCOUT ROSENBAUM MD ([id number]) on 07/01/2017 11:18:09 AM Referred By: Confirmed By:SCOUT ROSENBAUM MD
== END 2017-06-30 21:20 | disposition home or self-care (01) ==
LOC: JER 13:26 → JERFT 13:26 → JER 21:20
PROC: 3E0F7GC Introduction of Other Therapeutic Substance into Respiratory Tract, Via Natural or Artificial Opening (ICD-10-PCS; principal; 2017-06-30)
DX: R07.89 Other chest pain (principal); I10 Essential (primary) hypertension; E11.9 Type 2 diabetes mellitus without complications; Z79.4 Long term (current) use of insulin; E66.9 Obesity, unspecified; Z68.28 Body mass index [BMI] 28.0-28.9, adult; Z89.429 Acquired absence of other toe(s), unspecified side
CPT/HCPCS: 36415; 71046-TC-FY; 80053; 82550; 82962; 83735; 84484; 85025; 85610; 93005; 93010; 99284-25; J7620

== ENCOUNTER 2017-11-21 09:36 | Inpatient (IN) | payer OTHER ==
--- NOTE | 2017-11-21 09:52 | PDOC ---
Attending Attestation - Resident Resident Name: Hannah Weaver - ED Attending Attestation I have performed the following: I have examined & evaluated the patient, The case was reviewed & discussed with the resident, I agree w/resident's findings & plan, Exceptions are as noted - HPI HPI: 11/21/17 09:50 57yo female sent by Dr. Jones from the wound care clinic for eval of L foot diabetic wound. Pt is s/p amputation a week ago of the 2nd digit. Pt seen in wound care clinic and per Dr. Jones, concerned for ischemia to the L foot and poorly healing wound. Pt with red, warm foot, but unable to palptate pulses or doppler pulses. Hx of bypass to LLE. Pt with pain to LLE x 1 week. Black to heal and to lateral aspect of the foot. Open wound that is dry to 2nd digit at proximal aspect of the amputation. Redness to the foot. - Physicial Exam PE: 11/21/17 10:35 Gen: aaox3, nad heent: mmm, eomi heart: +s1s2 reg lungs: cta b/l abd: soft, nt/nd, +bs ext: redness to LLE, diabetic wound to 2nd digit that is dry, black heal and black lateral aspect of the foot, unable to palpate pulses to LLE or doppler pulses LLE, foot is warm, but painful, RLE with pulses intact neuro: no focal deficits skin: diabetic wound to LLE, ischemic foot L foot - Medical Decision Making 11/21/17 09:50 I, Dr. Antionette Clinton, DO, attest that this document has been prepared under my direction and personally reviewed by me in its entirety. I further attest, that it accurately reflects all work, treatment, procedures and medical decision -making performed by me. 11/21/17 10:29 a/p: 57yo female with hx of DM and hx of LLE bypass (performed at [facility] in 2016) with LLE pain x 1 week and black heel/foot -hx of amputated toes in April -open dry wound to proximal aspect of L 2nd digit -black heel and black ischemic changes to L lateral foot under -foot is warm, but unable to palpate pulses or doppler pulses -pt with iv contrast allergy -sent for cta with run off to eval patency of the LLE bypass -pt with iv contrast allergy - discussed with Dr. Lopez - our policy is to medicate with pred 50mg 12 hrs prior and again 1 hour prior to study -pt will need admission -will send labs, cultures, pre-op labs -Dr. Jones plans to operate on Tuesday -will send for arterial duplex 11/21/17 10:46 per ACR: premed is prednisone 50mg 13hrs, 7 hrs, [address] w contrast benadryl 50mg 1 hr prior to study will order CTA w run-off pmd is Dr. Luciano who admits to Dr. Orantes 11/21/17 10:[address] Orantes who accepts pt to service requests consult to dr. cox requests echo and carotids for preop clearance Heart Score/ECG Review - ECG Intrepretation Comment:: 11/21/17 10:47 sinus at 79, nl axis, nl interval, t wave inversions III which are nonspecific, no other acute changes
[2017-11-21] MEDS ORDERED: PIPERACILLIN/TAZOB 3.375 GM 3.375 GM in DEXTROSE 5%-WATER - 50 ML IVPB ONE (10:06)
[2017-11-21 10:17] LABS: BASO % 0.2 % (0-2.0); EOS % 0.8 % (0-4.5); HEMATOCRIT 27.8 % (32.4-45.2); HEMOGLOBIN 9.2 GM/dL (10.7-15.3); LYMPH % 9.5 % (8-40); MCH 28.7 pg (25.7-33.7); MEAN PLT VOLUME 8.5 fl (7.5-11.1); MONO % 5.7 % (3.8-10.2); NEUT % 83.8 % (42.8-82.8); PLATELET COUNT 321 K/MM3 (134-434); RBC 3.19 M/mm3 (3.60-5.2); RDW 13.5 % (11.6-15.6); WHITE BLOOD COUNT 14.3 K/mm3 (4.0-10.0)
[2017-11-21] MEDS ORDERED: PIPERACILLIN/TAZOB 3.375 GM 3.375 GM/50 ML BAG IVPB ONE ×2 (10:17→17:42)
[2017-11-21] MEDS ORDERED: VANCOMYCIN 1 GRAM (PRE-DOCKED) 1,000 MG/250 ML BAG IVPB ONE ×2 (10:17→17:15)
--- NOTE | 2017-11-21 10:17 | PDOC ---
History of Present Illness - General Chief Complaint: Wound Stated Complaint: WOUND Time Seen by Provider: 11/21/17 09:48 History Source: Patient Exam Limitations: No Limitations - History of Present Illness Initial Comments: 11/21/17 10:10 57 year old woman with a history of HTN, DM, cataracts, L fem-distal bypass with L 1st and 2nd toe amputation 2/2 diabetic foot (April 2017) who presents from wound care with ischemic changes of blackening of the L heel and blackened lesion at base of 5th digit, nonpalpable pulses on the L foot and 1 week of redness, swelling and pain in the L foot. The patient has compliant with Augmentin and Tylenol 3. The patient reports that she had a fever of 102F this AM that was relieved. She noted that she has had fevers in the past week that was brought down with Motrin. She admits to some nausea 2/2 antibiotics use, decrease in appetite, dysuria and some constipation and mild abdominal pain but denies chest pain and shortness of breath. Past History - Past Medical History Allergies/Adverse Reactions: Allergies Allergy/AdvReac Type Severity Reaction Status Date / Time Iodinated Contrast- Oral and Allergy Verified 11/21/17 09:38 IV Dye Home Medications: Ambulatory Orders Aspirin [ASA -] 81 mg PO DAILY 05/03/17 Glipizide 5 mg PO DAILY 05/03/17 Atorvastatin Ca [Lipitor] 40 mg PO HS #30 tablet 05/10/17 Escitalopram Oxalate [Lexapro -] 1 tab PO DAILY 05/31/17 Acetaminophen with Codeine [Tylenol with Codeine #3 Tablet] 1 each PO TID PRN Atorvastatin Ca [Lipitor] 40 mg PO HS tablet 11/25/17 Cephalexin [Keflex] 500 mg PO TID #45 capsule 11/25/17 Clopidogrel Bisulfate [Plavix -] 75 mg PO DAILY #30 tablet 11/25/17 Insulin Glargine,Hum.rec.anlog [Basaglar Kwikpen U-100] 100 unit SQ BID 30 Days #6 insuln.pen MDD 45 11/25/17 Insulin Lispro [Humalog Kwikpen U-100] 100 unit SQ TID PRN #5 insuln.pen Polyethylene Glycol 3350 [Miralax 119 gm Btl -] 17 gm PO DAILY bottle 11/25/17 Sennosides [Senna -] 1 tab PO HS tablet 11/25/17 COPD: No CHF: No Diabetes: Yes HTN: Yes Hypercholesterolemia: Yes Other medical history: genital herpes - Surgical History Orthopedic Surgery: Yes (amp left 2nd and 3rd toes) - Suicide/Smoking/Psychosocial Hx Smoking History: Never smoked Have you smoked in the past 12 months: No Information on smoking cessation initiated: No Hx Alcohol Use: No Drug/Substance Use Hx: No Substance Use Type: None Review of Systems - Review of Systems Able to Perform ROS?: Yes Is the patient limited Mauritian proficient: No Constitutional: No: Chills, Fever, Weakness *Physical Exam - Vital Signs Last Vital Signs Temp Pulse Resp BP Pulse Ox 98.8 F 85 18 136/45 L 100 11/21/17 09:39 11/21/17 09:39 11/21/17 09:39 11/21/17 09:39 11/21/17 09:39 - Physical Exam Comments: 11/21/17 10:13 L foot not cold but erythematous with ichemic black changes on the heel and base of the 5th digit. necrotic ulceritic lesion approx .25cm at base of 1st and 2nd toe proximal to amputated toes. doppler used did not find pulse 11/21/17 10:27 ED Treatment Course - LABORATORY CBC & Chemistry Diagram: 11/25/17 06:50 11/25/17 06:50 Medical Decision Making - Medical Decision Making 11/21/17 10:27 57 year old woman with a history of HTN, DM, cataracts, L fem-distal bypass with L 1st and 2nd toe amputation 2/2 diabetic foot (April 2017) who presents from wound care with ischemic changes of blackening of the L heel and blackened lesion at base of 5th digit, nonpalpable pulses on the L foot and 1 week of redness, swelling and pain in the L foot. The patient has compliant with Augmentin and Tylenol 3. The patient reports that she had a fever of 102F this AM that was relieved. She noted that she has had fevers in the past week that was brought down with Motrin. DDX including but not limited: nonpatent aortfem bypass vs cellulitis vs ischemia 2/2 amputation vs W/U: - cbc TX: - IV vancomycin - IV Zosyn ED Course: Patient stable with visible ischemic changes on the foot and without palpable pulses or pulses found on doppler. Concern for ischemia vs infection will work up patient accordingly. See attending note for discussion with Dr. Jones and wound care. *DC/Admit/Observation/Transfer - Discharge Dispostion Disposition: VNS/HOME HEALTH CARE Condition at time of disposition: Improved - Prescriptions - Referrals - Patient Instructions - Post Discharge Activity
[2017-11-21 10:33] LABS: INR 1.18 (0.83-1.09)
[2017-11-21 10:35] LABS: ACTIVATED PTT 27.4 SECONDS (25.2-36.5)
[2017-11-21] MEDS: VANCOMYCIN 1 GRAM (PRE-DOCKED) 1,000 MG/250 ML BAG IVPB ONE ×2 (10:38→10:54)
[2017-11-21 10:39] LABS: ALBUMIN 2.8 g/dl (3.4-5.0); ALK PHOS 118 U/L (45-117); ANION GAP 7 MMOL/L (8-16); BILIRUBIN,TOTAL 0.6 mg/dL (0.2-1); BLOOD UREA NITROGEN 9 mg/dL (7-18); CALCIUM 9.2 mg/dL (8.5-10.1); CHLORIDE 97 mmol/L (98-107); CO2 29 mmol/L (21-32); CREATININE 0.7 mg/dL (0.55-1.3); GLUCOSE,RANDOM 246 mg/dL (74-106); POTASSIUM 4.1 mmol/L (3.5-5.1); SGOT/AST 14 U/L (15-37); SGPT/ALT 17 U/L (13-61); SODIUM 133 mmol/L (136-145); TOT PROT 7.4 g/dl (6.4-8.2)
[2017-11-21] MEDS ORDERED: predniSONE 20 MG TABLET (UD) PO ONE ×3 (10:42→23:00)
[2017-11-21 10:45] LABS: VENOUS PC02 47.2 mmHg (38-52); VENOUS PH 7.41 (7.32-7.42); VENOUS PO2 42.6 mmHg (28-48)
[2017-11-21 10:46] LABS: URINE APPEARANCE SLCLOUDY; URINE BILIRUBIN NEGATIVE (<2.0 mg/dL); URINE COLOR AMBER; URINE GLUCOSE (UA) 3+ (NEGATIVE); URINE KETONE NEGATIVE (NEGATIVE); URINE LEUK ESTERASE TRACE (NEGATIVE); URINE NITRITE NEGATIVE (NEGATIVE); URINE PROTEIN 2+ (NEGATIVE)
[2017-11-21 10:49] LABS: EPI CELLS RARE /HPF (FEW); URINE MUCUS FEW
[2017-11-21] MEDS ORDERED: SODIUM CHLORIDE 0.9% 1000 ML INFUS.BAG IV ONE (10:49)
[2017-11-21] MEDS ORDERED: predniSONE 20 MG TABLET (UD) ONE ×2 (10:56→17:41)
[2017-11-21] MEDS ORDERED: predniSONE 10 MG TABLET (UD) ONE ×2 (10:57→17:42)
--- NOTE | 2017-11-21 12:16 | HP ---
Admitting History and Physical - Admission Chief Complaint: sent in for foot wound History of Present Illness: 11/21/17 10:10 57 year old woman with a history of HTN, DM, cataracts, L fem-distal bypass with L 1st and 2nd toe amputation 2/2 diabetic foot (April 2017) who presents from wound care with ischemic changes of blackening of the L heel and blackened lesion at base of 5th digit, nonpalpable pulses on the L foot and 1 week of redness, swelling and pain in the L foot. The patient has compliant with Augmentin and Tylenol 3. The patient reports that she had a fever of 102F this AM that was relieved. She noted that she has had fevers in the past week that was brought down with Motrin. She admits to some nausea 2/2 antibiotics use, decrease in appetite, dysuria and some constipation and mild abdominal pain but denies chest pain and shortness of breath. History Source: Patient, Medical Record - Past Medical History Cardiovascular: Yes: HTN ...LMP: 02/15/15 Endocrine: Yes: Diabetes Mellitus - Past Surgical History Past Surgical History: Yes: Amputation - Smoking History Smoking history: Never smoked Have you smoked in the past 12 months: No - Alcohol/Substance Use Hx Alcohol Use: No Home Medications - Allergies Allergies/Adverse Reactions: Allergies Allergy/AdvReac Type Severity Reaction Status Date / Time Iodinated Contrast- Oral and Allergy Verified 11/21/17 09:38 IV Dye - Home Medications Home Medications: Ambulatory Orders Aspirin [ASA -] 81 mg PO DAILY 05/03/17 Glipizide 5 mg PO DAILY 05/03/17 Atorvastatin Ca [Lipitor] 40 mg PO HS #30 tablet 05/10/17 Escitalopram Oxalate [Lexapro -] 1 tab PO DAILY 05/31/17 Acetaminophen with Codeine [Tylenol with Codeine #3 Tablet] 1 each PO TID PRN Amoxicillin/Potassium Clav [Augmentin 875-125 Tablet] 1 each PO BID 11/21/17 Review of Systems - Review of Systems Musculoskeletal: reports: Other (left foot and heel pain) Physical Examination Vital Signs: Vital Signs Temperature 98.8 F 11/21/17 09:39 Pulse Rate 85 11/21/17 09:39 Respiratory Rate 18 11/21/17 09:39 Blood Pressure 136/45 L 11/21/17 09:39 O2 Sat by Pulse Oximetry (%) 97 11/21/17 10:41 Constitutional: Yes: Calm Cardiovascular: Yes: Regular Rate and Rhythm, S1, S2 Respiratory: Yes: CTA Bilaterally Gastrointestinal: Yes: Normal Bowel Sounds, Soft Extremities: Yes: Other (left foot plantar surface heel is black and the latral border 5 toe also black necrotic ulcer at the base of foot foot is erythematous DP no palpable) Labs: CBC, BMP 11/21/17 10:08 11/21/17 09:52 Problem List - Problems (1) Gangrene Assessment/Plan: vascular consult cta run off ordered with premedication cardiology consult for clearance iv abx dvtppx Code(s): I96 - GANGRENE, NOT ELSEWHERE CLASSIFIED (2) Diabetes mellitus Assessment/Plan: bgm sliding scale hgba1c insulin Code(s): E11.9 - TYPE 2 DIABETES MELLITUS WITHOUT COMPLICATIONS Qualifiers: Diabetes mellitus type: type 2 (3) HTN (hypertension) Assessment/Plan: monitor BP may need acei/arb Code(s): I10 - ESSENTIAL (PRIMARY) HYPERTENSION (4) PAD (peripheral artery disease) Assessment/Plan: cta run off Code(s): I73.9 - PERIPHERAL VASCULAR DISEASE, UNSPECIFIED
--- NOTE | 2017-11-21 14:15 | ECHO ---
Name: YAMIL LEWIS Exam:Adult Echocardiogram Study Date: 11/21/2017 11:34 AM Age: 57 yrs Reason For Study: Pre-op Height: 63 in Weight: 172 lb BSA: 1.8 m2 MMode/2D Measurements & Calculations IVSd: 0.98 cm Ao root diam: 2.3 cm LVIDd: 3.3 cm LA dimension: 3.1 cm LVIDs: 2.4 cm LVPWd: 1.2 cm EDV(Teich): 43.6 ml LAV (MOD-bp): 47.4 ml ESV(Teich): 19.9 ml Doppler Measurements & Calculations MV E max aaron: 108.0 cm/sec Med Peak E' Aaron: 7.9 cm/sec MV A max aaron: 95.6 cm/sec Med E/e': 13.6 MV E/A: 1.1 Lat Peak E' Aaron: 9.1 cm/sec MV dec time: 0.18 sec Lat E/e': 11.8 Procedure A complete two-dimensional transthoracic echocardiogram was performed (2D, M-mode, Doppler and color flow Doppler). Left Ventricle The left ventricle is normal in size. Left ventricular systolic function is normal. Ejection Fraction = 60- 65%. No regional wall motion abnormalities noted. Right Ventricle The right ventricle is normal size. The right ventricular systolic function is normal. Atria The left atrial size is normal. LA voluime index is 26 ml/m2. Right atrial size is normal. Mitral Valve There is mild mitral annular calcification. There is trace mitral regurgitation. Tricuspid Valve The tricuspid valve is normal in structure and function. There is mild tricuspid regurgitation. Aortic Valve The aortic valve is normal in structure and function. No aortic regurgitation is present. Pulmonic Valve The pulmonic valve is not well visualized. Great Vessels The aortic root is normal size. Pericardium/Pleura There is no pericardial effusion. Interpretation Summary The left ventricle is normal in size. Left ventricular systolic function is normal. No regional wall motion abnormalities noted. Ejection Fraction = 60-65%. The right ventricular systolic function is normal. The left atrial size is normal. Right atrial size is normal. There is mild mitral annular calcification. There is trace mitral regurgitation. There is mild tricuspid regurgitation. There is no pericardial effusion. Previous study is not available for comparison Herminio Almazan MD 11/21/2017 02:14 PM
--- NOTE | 2017-11-21 15:34 | EKG ---
Test Reason : Blood Pressure : / mmHG Vent. Rate : 079 BPM Atrial Rate : 079 BPM P-R Int : 132 ms QRS Dur : 078 ms QT Int : 384 ms P-R-T Axes : -08 010 009 degrees QTc Int : 440 ms NORMAL SINUS RHYTHM NORMAL ECG WHEN COMPARED WITH ECG OF 30-JUN-2017 15:53, T WAVE VARIATION Confirmed by NICK OKEEFE MD ([id number]) on 11/21/2017 3:34:54 PM Referred By: Confirmed By:NICK OKEEFE MD
[2017-11-21] MEDS ORDERED: HEPARIN NA (PORCINE) 5,000 UNITS/ML 1ML VIAL IVPUSH PRN ×2 (16:19)
--- NOTE | 2017-11-21 16:25 | PN ---
Progress Note (short form) - Note Progress Note: ID Consult dictated Cellulitis v. ischemia L foot Fever/ leukocytosis R/O sepsis PVD DM Await c/s Surgical evaluation Empiric vancomycin/ zosyn
[2017-11-21] MEDS ORDERED: INSULIN (NOVOLOG) ASPART 100 UNITS/ML 10ML VIAL ONE (16:51)
[2017-11-21] MEDS: INSULIN SLIDING SCALE (NOVOLOG) 1 VIAL SQ SCH ×2 (16:57→22:35)
[2017-11-21] MEDS: VANCOMYCIN 1 GRAM (PRE-DOCKED) 1,000 MG/250 ML BAG IVPB SCH (17:05)
[2017-11-21] MEDS: HEPARIN - 25,000 UNIT in SODIUM CHLORIDE 495 ML IV SCH (17:05)
[2017-11-21] MEDS ORDERED: HEPARIN INFUSION - 25,000 UNITS/500 ML INFUS.BAG IVPB ONE (17:05)
--- NOTE | 2017-11-21 17:05 | CONSULT ---
Consult Consult Specialty:: Vascular Surgery Reason for Consultation:: Left foot ischemia for over a week. Pt had LLE bypass done at [facility] in december 2016. Never followed up with vascular team there. Pt is non compliant and does not visit doctors. Now comes to vascular clinic today with over 7 day history of pain in left foot. - History Source Limitations to Obtaining History: No Limitations - Past Medical History Cardio/Vascular: Yes: HTN ...LMP: 02/15/15 Endocrine: Yes: Diabetes Mellitus - Past Surgical History Past Surgical History: Yes: Amputation - Alcohol/Substance Use Hx Alcohol Use: No - Smoking History Smoking history: Never smoked Have you smoked in the past 12 months: No Home Medications - Allergies Allergies/Adverse Reactions: Allergies Allergy/AdvReac Type Severity Reaction Status Date / Time Iodinated Contrast- Oral and Allergy Verified 11/21/17 09:38 IV Dye - Home Medications Home Medications: Ambulatory Orders Aspirin [ASA -] 81 mg PO DAILY 05/03/17 Glipizide 5 mg PO DAILY 05/03/17 Atorvastatin Ca [Lipitor] 40 mg PO HS #30 tablet 05/10/17 Escitalopram Oxalate [Lexapro -] 1 tab PO DAILY 05/31/17 Acetaminophen with Codeine [Tylenol with Codeine #3 Tablet] 1 each PO TID PRN Amoxicillin/Potassium Clav [Augmentin 875-125 Tablet] 1 each PO BID 11/21/17 Review of Systems - Review of Systems Constitutional: reports: No Symptoms Eyes: reports: No Symptoms HENT: reports: No Symptoms Neck: reports: No Symptoms Cardiovascular: reports: No Symptoms Respiratory: reports: No Symptoms Gastrointestinal: reports: No Symptoms Genitourinary: reports: No Symptoms Musculoskeletal: reports: Extremity Pain (left lower ext. bypass scar present) Integumentary: reports: No Symptoms Neurological: reports: No Symptoms Endocrine: reports: No Symptoms Hematology/Lymphatic: reports: No Symptoms Psychiatric: reports: No Symptoms Physical Exam Vital Signs: Vital Signs Temperature 98.8 F 11/21/17 09:39 Pulse Rate 85 11/21/17 09:39 Respiratory Rate 18 11/21/17 09:39 Blood Pressure 136/45 L 11/21/17 09:39 O2 Sat by Pulse Oximetry (%) 97 11/21/17 10:41 Constitutional: Yes: Well Nourished, No Distress, Calm Eyes: Yes: WNL, Conjunctiva Clear, EOM Intact HENT: Yes: WNL, Atraumatic, Normocephalic Neck: Yes: WNL, Supple, Trachea Midline Cardiovascular: Yes: WNL, Regular Rate and Rhythm Respiratory: Yes: WNL, Regular, CTA Bilaterally Gastrointestinal: Yes: WNL, Normal Bowel Sounds ...Rectal Exam: Yes: WNL Renal/: Yes: WNL Breast(s): Yes: WNL Musculoskeletal: Yes: WNL Extremities: Yes: Cyanosis (LLE), Erythema (LLE) Edema: No Peripheral Pulses WNL: No Integumentary: Yes: WNL Neurological: Yes: WNL, Alert, Oriented ...Motor Strength: WNL Psychiatric: Yes: WNL Labs: CBC, BMP 11/21/17 10:08 11/21/17 09:52 Problem List - Problems (1) Ischemic pain of left foot Assessment/Plan: Ischemic pain left foot 1. US shows the bypass graft to be occluded. 2. Start IV heparin 3. IV antibiotics 4. Medical/cardiology eval. 5. Will probably need thrombolysis of bypass graft. Gen Jones DO Code(s): M79.672 - PAIN IN LEFT FOOT; I99.9 - UNSPECIFIED DISORDER OF CIRCULATORY SYSTEM
--- NOTE | 2017-11-21 17:14 | CON.CARD ---
Consult Consult Specialty:: Cardiology Reason for Consultation:: PreOp Evaluation - History of Present Illness Chief Complaint: Foot pain History of Present Illness: This is a 57 year old female with DM and PVD. Pt is s/p amputation a week ago of the 2nd digit. Pt seen in wound care clinic and per Dr. Jones, concerned for ischemia to the L foot and poorly healing wound. Pt with red, warm foot, but unable to palptate pulses or doppler pulses. Hx of bypass to LLE. Pt with pain to LLE x 1 week. She may be in needs of additional vascular procedures. According to the patient, she had a pharmacologic nuclear stress test with Dr. Yahir Lloyd on 11/07/17. She does not know the results. - Past Medical History Cardio/Vascular: Yes: HTN ...LMP: 02/15/15 Endocrine: Yes: Diabetes Mellitus - Past Surgical History Past Surgical History: Yes: Amputation - Alcohol/Substance Use Hx Alcohol Use: No - Smoking History Smoking history: Never smoked Have you smoked in the past 12 months: No Home Medications - Allergies Allergies/Adverse Reactions: Allergies Allergy/AdvReac Type Severity Reaction Status Date / Time Iodinated Contrast- Oral and Allergy Verified 11/21/17 09:38 IV Dye - Home Medications Home Medications: Ambulatory Orders Aspirin [ASA -] 81 mg PO DAILY 05/03/17 Glipizide 5 mg PO DAILY 05/03/17 Atorvastatin Ca [Lipitor] 40 mg PO HS #30 tablet 05/10/17 Escitalopram Oxalate [Lexapro -] 1 tab PO DAILY 05/31/17 Acetaminophen with Codeine [Tylenol with Codeine #3 Tablet] 1 each PO TID PRN Amoxicillin/Potassium Clav [Augmentin 875-125 Tablet] 1 each PO BID 11/21/17 Review of Systems Findings/Remarks: As per HPI Vital Signs: Vital Signs Temperature 98.8 F 11/21/17 09:39 Pulse Rate 85 11/21/17 09:39 Respiratory Rate 18 11/21/17 09:39 Blood Pressure 136/45 L 11/21/17 09:39 O2 Sat by Pulse Oximetry (%) 97 11/21/17 10:41 Constitutional: Yes: Well Nourished HENT: Yes: WNL Neck: Yes: WNL Respiratory: Yes: CTA Bilaterally Gastrointestinal: Yes: Soft Cardiovascular: Yes: Regular Rate and Rhythm (NL S1 S2, No MRHG) Extremities: Yes: WNL, Amputation (Toe. Poorly healing wounds as described) - Other Data Labs, Other Data: CBC, BMP 11/21/17 10:08 11/21/17 09:52 INR, PTT INR 1.18 (0.83-1.09) H 11/21/17 09:52 Assessment/Plan 57 year old female with DM and PVD. Pt is s/p amputation a week ago of the 2nd digit. Pt seen in wound care clinic and per Dr. Jones, concerned for ischemia to the L foot and poorly healing wound. Pt with red, warm foot, but unable to palptate pulses or doppler pulses. Hx of bypass to LLE. Pt with pain to LLE x 1 week. She may be in needs of additional vascular procedures. According to the patient, she had a pharmacologic nuclear stress test with Dr. Yahir Lloyd on 11/07/17. She does not know the results. EKG NSR without acute changes. Would try to obtain the recent Nuclear Stress Test results. Continue Atorvastatin/ASA Will follow with you.
[2017-11-21] MEDS: PIPERACILLIN/TAZOB 3.375 GM 3.375 GM in DEXTROSE 5%-WATER - 50 ML IVPB SCH (18:35)
--- NOTE | 2017-11-21 18:58 | CONS ---
INFECTIOUS DISEASE CONSULTATION DATE OF CONSULTATION: 11/21/2017 The patient is a 57-year-old, diabetic female with a history of peripheral vascular disease, evaluated for cellulitis of the left foot. The patient is status post amputation of the left great toe in December 2016 and amputation of the left 2nd toe at [facility] in April 2017. She reports postoperatively the wounds healed well. Over the past 1-2 weeks, she has had increasing pain in the left foot, which she treated with [id number] remedies and massage. She had subjective fever. The pain became progressively worse. She was seen in the wound care center where concern was expressed over possible ischemia versus cellulitis of the left foot. She was noted to have erythema, warmth, and swelling of the dorsum of the foot as well as necrotic-appearing areas on the heel and the lateral aspect of the 5th metatarsal. She was treated empirically with Augmentin. She denies any purulent wound drainage. PAST MEDICAL HISTORY: Positive for diabetes mellitus, hypertension, cataract surgery. PAST SURGICAL HISTORY: Status post left femoral bypass and amputation of toes on the left foot. ALLERGIES: IODINE. MEDICATIONS: Glipizide, Lipitor, Lexapro, aspirin. SOCIAL HISTORY: Negative for tobacco use. LABORATORY DATA: White count 14.3, hematocrit 27.8, platelet count 321. BUN 9, creatinine 0.7. Urinalysis: White cells 4. PHYSICAL EXAMINATION: General: She is in moderate distress secondary to left foot pain. Vital Signs: Temperature 98.8, T-max 100.2; blood pressure 136/45; pulse 85, regular; respirations 18 per minute. HEENT: Sclerae are anicteric. Heart: Sounds S1, S2. Lungs: Clear. Abdomen: Soft, nontender. Extremities: On examination of the left foot, she is status post amputation of the 1st and 2nd toes. The wounds are well healed. There is a small ulcerative lesion present over the dorsal aspect of the 2nd metatarsal head. There is no purulent drainage. There is confluent erythema and warmth involving the dorsum of the foot, extending to the lateral malleolus. There is warmth to touch and exquisite tenderness to touch of the foot and the calf area. Necrotic areas are noted on the left heel and the lateral aspect of the 5th metatarsal head. IMPRESSION: 1. Ischemia versus cellulitis of the left foot. 2. Fever, leukocytosis; rule out sepsis secondary to skin source. 3. Peripheral vascular disease. 4. Diabetes mellitus. Await cultures. Continue empiric vancomycin and Zosyn. Surgical/vascular evaluation. Will follow. Thank you for the kind referral. SCOUT FRANCO M.D. [id number]
[2017-11-21] MEDS ORDERED: oxyCODONE HCL 5 MG TABLET ONE (20:44)
[2017-11-21] MEDS: oxyCODONE HCL 5 MG TABLET PO PRN (21:10)
[2017-11-21] MEDS ORDERED: HEPARIN NA (PORCINE) 5,000 UNITS/ML 1ML VIAL SQ SCH (22:00)
[2017-11-21] MEDS ORDERED: INSULIN (LEVEMIR) 100 UNITS/ML UNITS SQ SCH (22:00)
[2017-11-21] MEDS: ATORVASTATIN CA 40 MG TABLET (FP) PO SCH (22:53)
[2017-11-21] MEDS ORDERED: diphenhydrAMINE HCL 25 MG CAPSULE (FP) PO ONE (23:00)
[2017-11-22] MEDS ORDERED: INSULIN (NOVOLOG) ASPART 100 UNITS/ML 10ML VIAL SQ ONE ×3 (00:10→22:45)
[2017-11-22] MEDS ORDERED: ACETAMINOPHEN 325 MG TABLET (FP) PO ONE (00:21)
[2017-11-22] MEDS ORDERED: DEXTROSE 5%-WATER - 50 ML IVPB ONE ×3 (01:34→17:18)
[2017-11-22] MEDS ORDERED: PIPERACILLIN/TAZOBACTAM 3.375 GM VIAL IVPB ONE ×3 (01:34→17:18)
[2017-11-22] MEDS: PIPERACILLIN/TAZOB 3.375 GM 3.375 GM in DEXTROSE 5%-WATER - 50 ML IVPB SCH ×3 (02:07→18:18)
[2017-11-22] MEDS: VANCOMYCIN 1 GRAM (PRE-DOCKED) 1,000 MG/250 ML BAG IVPB SCH ×2 (05:20→16:40)
[2017-11-22] MEDS: INSULIN SLIDING SCALE (NOVOLOG) 1 VIAL SQ SCH ×4 (06:20→22:43)
--- NOTE | 2017-11-22 08:03 | PN ---
Progress Note (short form) - Note Progress Note: 57 year old woman with a history of HTN, DM, L fem-distal bypass with L 1st and 2nd toe amputation 2/2 diabetic foot (April 2017) who presents from wound care with ischemic changes of blackening of the L heel and blackened lesion at base of 5th digit, nonpalpable pulses on the L foot and 1 week of redness, swelling and pain in the L foot. 1. US shows the bypass graft to be occluded. 2. IV heparin 3. IV antibiotics 4. Medical/cardiology eval. 5. f/u CTA w/ LE runoff (done, awaiting official read) 5. Will probably need thrombolysis of bypass graft.
[2017-11-22 08:24] LABS: BASO % 0.1 % (0-2.0); HEMATOCRIT 24.2 % (32.4-45.2); HEMOGLOBIN 8.1 GM/dL (10.7-15.3); LYMPH % 6.1 % (8-40); MCH 28.6 pg (25.7-33.7); MCHC 33.4 g/dl (32.0-36.0); MEAN CELL VOLUME 85.8 fl (80-96); MEAN PLT VOLUME 8.8 fl (7.5-11.1); MONO % 1.9 % (3.8-10.2); NEUT % 91.9 % (42.8-82.8); PLATELET COUNT 267 K/MM3 (134-434); RBC 2.82 M/mm3 (3.60-5.2); RDW 13.1 % (11.6-15.6); WHITE BLOOD COUNT 15.8 K/mm3 (4.0-10.0)
--- NOTE | 2017-11-22 08:27 | PN ---
Progress Note, Physician Chief Complaint: AWAKE ALERT EVENTS AND NOTES REVIEWED PATIENT C/O LEFT LEG LOWER EXTREMITY PAIN/BURINING/COLD - Current Medication List Current Medications: Active Medications Atorvastatin Calcium (Lipitor -) 40 mg PO HS SEVERIANO Last Admin: 11/21/17 22:53 Dose: 40 mg Heparin Sodium (Porcine) (Heparin -) 1,000 unit IVPUSH PRN PRN PRN Reason: Heparin Heparin Sodium (Porcine) (Heparin -) 5,000 unit IVPUSH PRN PRN PRN Reason: Heparin Heparin Sodium (Porcine) 25, (000 unit/ Sodium Chloride) 500 mls @ 20 mls/hr IV TITR SEVERIANO; Protocol Last Admin: 11/21/17 17:05 Dose: 1,000 unit/hr, 20 mls/hr Vancomycin HCl (Vancomycin (Pre-Docked)) 1,000 mg in 250 mls @ 166.667 mls/hr IVPB Q12H SEVERIANO; Protocol Last Admin: 11/22/17 05:20 Dose: 166.667 mls/hr Piperacillin Sod/Tazobactam (Sod 3.375 gm/ Dextrose) 50 mls @ 100 mls/hr IVPB Q8H-IV SEVERIANO; Protocol Last Admin: 11/22/17 02:07 Dose: 100 mls/hr Insulin Aspart (Novolog Vial Sliding Scale -) 1 vial SQ [facility]; Protocol Last Admin: 11/22/17 06:20 Dose: 6 units Insulin Detemir (Levemir Vial) [address] [facility] Last Admin: 11/21/17 22:51 Dose: 10 unit Oxycodone HCl (Roxicodone -) 5 mg PO Q6H PRN PRN Reason: PAIN LEVEL 7 - 10 Last Admin: 11/21/17 21:10 Dose: 5 mg - Objective Vital Signs: Vital Signs Temperature 97.6 F 11/22/17 05:22 Pulse Rate 70 11/22/17 05:22 Respiratory Rate 20 11/22/17 06:00 Blood Pressure 120/60 11/22/17 05:22 O2 Sat by Pulse Oximetry (%) 98 11/22/17 06:00 Constitutional: Yes: Mild Distress Eyes: Yes: WNL HENT: Yes: WNL Neck: Yes: WNL Cardiovascular: Yes: WNL Respiratory: Yes: WNL Gastrointestinal: Yes: WNL Genitourinary: Yes: WNL Musculoskeletal: Yes: Muscle Pain, Muscle Weakness Extremities: Yes: Amputation, Deformity, Erythema Edema: No Integumentary: Yes: Erythema, Rash, Venous Stasis Changes Wound/Incision: Yes: Open to air, Reddened, Excoriated, Unapproximated Neurological: Yes: Loss of Sensation, Numbness, Paresthesia, Pre-Existing Deficit, Tingling, Unsteady Gait, Weakness ...Motor Strength: LLE, RLE Psychiatric: Yes: WNL Labs: CBC, BMP 11/22/17 07:10 INR, PTT INR 1.18 (0.83-1.09) H 11/21/17 09:52 Problem List - Problems (1) Noncompliance of patient with dietary regimen Code(s): Z91.11 - PATIENT'S NONCOMPLIANCE WITH DIETARY REGIMEN (2) Ischemic pain of left foot Code(s): M79.672 - PAIN IN LEFT FOOT; I99.9 - UNSPECIFIED DISORDER OF CIRCULATORY SYSTEM (3) Occlusion of bypass graft Code(s): T82.898A - [facility] COMPLICATION OF VASCULAR PROSTH DEV/GRFT, INIT (4) Gangrene Code(s): I96 - GANGRENE, NOT ELSEWHERE CLASSIFIED (5) IDDM (insulin dependent diabetes mellitus) Code(s): E11.9 - TYPE 2 DIABETES MELLITUS WITHOUT COMPLICATIONS; Z79.4 - [employer]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 [employer] (CURRENT) USE OF INSULIN (6) Ischemic foot pain at rest Code(s): I73.9 - PERIPHERAL VASCULAR DISEASE, UNSPECIFIED (7) Diabetes mellitus Code(s): E11.9 - TYPE 2 DIABETES MELLITUS WITHOUT COMPLICATIONS Qualifiers: Diabetes mellitus type: type 2 (8) HTN (hypertension) Code(s): I10 - ESSENTIAL (PRIMARY) HYPERTENSION (9) PAD (peripheral artery disease) Code(s): I73.9 - PERIPHERAL VASCULAR DISEASE, UNSPECIFIED Assessment/Plan CARDIOLOGY CLEARANCE FOR ANGIO LEFT LEG ENDOCRINE CONSULT FOR LONG STANDING NON-COMPLIANT DIABETIC WITH POOR DIET AND MEDICAL REGIMEN DIETARY CONSULT I SPENT 30 MINUTES D/W THE PATIENT THAT THE IMPORTANCE OF DIET AND MEDICAL FOLLOW UP IS IMPORTANT TO IMPROVE HER RECOVERY AND PROGNOSIS. PAIN CONTROL/IV ABX AC PT EVAL SNF
--- NOTE | 2017-11-22 08:45 | PN ---
Progress Note, Physician - Current Medication List Current Medications: Active Medications Atorvastatin Calcium (Lipitor -) 40 mg PO HS [facility] Last Admin: 11/21/17 22:53 Dose: 40 mg Heparin Sodium (Porcine) (Heparin -) 1,000 unit IVPUSH PRN PRN PRN Reason: Heparin Heparin Sodium (Porcine) (Heparin -) 5,000 unit IVPUSH PRN PRN PRN Reason: Heparin Heparin Sodium (Porcine) 25, (000 unit/ Sodium Chloride) 500 mls @ 20 mls/hr IV TITR [facility]; Protocol Last Admin: 11/21/17 17:05 Dose: 1,000 unit/hr, 20 mls/hr Vancomycin HCl (Vancomycin (Pre-Docked)) 1,000 mg in 250 mls @ 166.667 mls/hr IVPB Q12H [facility]; Protocol Last Admin: 11/22/17 05:20 Dose: 166.667 mls/hr Piperacillin Sod/Tazobactam (Sod 3.375 gm/ Dextrose) 50 mls @ 100 mls/hr IVPB Q8H-IV [facility]; Protocol Last Admin: 11/22/17 02:07 Dose: 100 mls/hr Insulin Aspart (Novolog Vial Sliding Scale -) 1 vial SQ ACHS [facility]; Protocol Last Admin: 11/22/17 06:20 Dose: 6 units Insulin Detemir (Levemir Vial) 10 units SQ HS [facility] Last Admin: 11/21/17 22:51 Dose: 10 unit Oxycodone HCl (Roxicodone -) 5 mg PO Q6H PRN PRN Reason: PAIN LEVEL 7 - 10 Last Admin: 11/21/17 21:10 Dose: 5 mg - Objective Vital Signs: Vital Signs Temperature 97.6 F 11/22/17 05:22 Pulse Rate 70 11/22/17 05:22 Respiratory Rate 20 11/22/17 06:00 Blood Pressure 120/60 11/22/17 05:22 O2 Sat by Pulse Oximetry (%) 98 11/22/17 06:00 Labs: CBC, BMP 11/22/17 07:10 INR, PTT INR 1.18 (0.83-1.09) H 11/21/17 09:52
[2017-11-22 09:21] LABS: ALBUMIN 2.3 g/dl (3.4-5.0); ALK PHOS 114 U/L (45-117); ANION GAP 8 MMOL/L (8-16); BILIRUBIN,TOTAL 0.4 mg/dL (0.2-1); BLOOD UREA NITROGEN 15 mg/dL (7-18); CALCIUM 8.9 mg/dL (8.5-10.1); CHLORIDE 99 mmol/L (98-107); CO2 28 mmol/L (21-32); CREATININE 0.7 mg/dL (0.55-1.3); MAGNESIUM 2.1 mg/dL (1.8-2.4); PHOSPHOROUS 2.3 mg/dL (2.5-4.9); POTASSIUM 4.1 mmol/L (3.5-5.1); SGOT/AST 12 U/L (15-37); SGPT/ALT 16 U/L (13-61); SODIUM 135 mmol/L (136-145); TOT PROT 6.6 g/dl (6.4-8.2)
[2017-11-22 09:26] LABS: GLUCOSE,RANDOM 319 mg/dL (74-106)
[2017-11-22] MEDS: POLYETHYLENE GLYCOL 3350 119 GM BTL PO SCH (09:36)
[2017-11-22 09:51] LABS: CHOLESTEROL 145 mg/dL (50-200); HDL CHOLESTEROL 32 mg/dL (40-60); TRIGLYCERIDES 98 mg/dL (0-150)
--- NOTE | 2017-11-22 10:01 | SPA.PREOP ---
- PRE-OP NOTE Dx: Occluded left Bypass graft Planned Procedure: thrombolysis/thrombectomy, left bypass graft. Surgeon: Robert Consent: To be Obtained after surgeon explained all risks, benefits and alternatives and the patient has the Opportunity to ask questions. Last Vital Signs Temp Pulse Resp BP Pulse Ox 98 F 71 20 146/77 98 11/22/17 09:20 11/22/17 09:20 10 09:20 11/22/17 09:20 11/22/17 06:00 Lab Results WBC 15.8 K/mm3 (4.0-10.0) H 11/22/17 07:10 RBC 2.82 M/mm3 (3.60-5.2) L 11/22/17 07:10 Hgb 8.1 GM/dL (10.7-15.3) L 11/22/17 07:10 Hct 24.2 % (32.4-45.2) L 11/22/17 07:10 MCV 85.8 fl (80-96) 11/22/17 07:10 MCHC 33.4 g/dl (32.0-36.0) 11/22/17 07:10 RDW 13.1 % (11.6-15.6) 11/22/17 07:10 Plt Count 267 K/MM3 (134-434) 11/22/17 07:10 Sodium 135 mmol/L (136-145) L 11/22/17 07:10 Potassium 4.1 mmol/L (3.5-5.1) 11/22/17 07:10 Chloride 99 mmol/L (98-107) 11/22/17 07:10 Carbon Dioxide 28 mmol/L (21-32) 11/22/17 07:10 Anion Gap 8 MMOL/L (8-16) 11/22/17 07:10 BUN 15 mg/dL (7-18) 11/22/17 07:10 Creatinine 0.7 mg/dL (0.55-1.3) 11/22/17 07:10 Random Glucose 319 mg/dL (74-106) H* 11/22/17 07:10 Calcium 8.9 mg/dL (8.5-10.1) 11/22/17 07:10 Blood Type O POSITIVE 11/21/17 09:53 Antibody Screen Negative 10/08/18 09:53 INR 1.18 (0.83-1.09) H 11/21/17 09:52 US shows the bypass graft to be occluded. Problem List - Problems (1) Occlusion of bypass graft Assessment/Plan: Plan for OR tomorrow for thrombolysis of graft clot, 1. Make NPO after midnight except po meds 2. GI/DVT PPX 3. Medical optimization / clearance 4. Continue Heparin drip Evaluation and plan discussed with Dr Jones Code(s): T82.898A - [facility] COMPLICATION OF VASCULAR PROSTH DEV/GRSANDRA, INIT Visit type - Case Type Case Type: ED Admission - Emergency Emergency Visit: Yes ED Registration Date: 11/21/17 Care time: The patient presented to the Emergency Department on the above date and was hospitalized for further evaluation of their emergent condition. - New patient This patient is new to me today: Yes Date on this admission: 11/22/17
--- NOTE | 2017-11-22 10:24 | PN ---
Progress Note, Physician History of Present Illness: C/O L foot pain No c/o fever/ chills Tolerating antibiotics CTA shows occlusion of graft - Current Medication List Current Medications: Active Medications Atorvastatin Calcium (Lipitor -) 40 mg PO HS SEVERIANO Last Admin: 11/21/17 22:53 Dose: 40 mg Heparin Sodium (Porcine) (Heparin -) 1,000 unit IVPUSH PRN PRN PRN Reason: Heparin Heparin Sodium (Porcine) (Heparin -) 5,000 unit IVPUSH PRN PRN PRN Reason: Heparin Heparin Sodium (Porcine) 25, (000 unit/ Sodium Chloride) 500 mls @ 20 mls/hr IV TITR SE[facility]; Protocol Last Admin: 11/21/17 17:05 Dose: 1,000 unit/hr, 20 mls/hr Vancomycin HCl (Vancomycin (Pre-Docked)) 1,000 mg in 250 mls @ 166.667 mls/hr IVPB Q12H [facility]; Protocol Last Admin: 11/22/17 05:20 Dose: 166.667 mls/hr Piperacillin Sod/Tazobactam (Sod 3.375 gm/ Dextrose) 50 mls @ 100 mls/hr IVPB Q8H-IV [facility]; Protocol Last Admin: 11/22/17 09:37 Dose: 100 mls/hr Insulin Aspart (Novolog Vial Sliding Scale -) 1 vial SQ ACH[facility]; Protocol Last Admin: 11/22/17 06:20 Dose: 6 units Insulin Detemir (Levemir Vial) [address] units [address] [facility] Last Admin: 11/21/17 22:51 Dose: 10 unit Oxycodone HCl (Roxicodone -) 5 mg PO Q6H PRN PRN Reason: PAIN LEVEL 7 - 10 Last Admin: 11/21/17 21:10 Dose: 5 mg Polyethylene Glycol (Miralax (For Daily Use) -) 17 gm PO DAILY [facility] Last Admin: 11/22/17 09:36 Dose: 17 gm Senna (Senna -) 1 tab PO HS [facility] - Objective Vital Signs: Vital Signs Temperature 98 F 11/22/17 09:20 Pulse Rate 71 11/22/17 09:20 Respiratory Rate 20 11/22/17 09:20 Blood Pressure 146/77 11/22/17 09:20 O2 Sat by Pulse Oximetry (%) 98 11/22/17 06:00 Constitutional: Yes: No Distress Eyes: Yes: Conjunctiva Clear Cardiovascular: Yes: Regular Rate and Rhythm, S1, S2 Respiratory: Yes: CTA Bilaterally Gastrointestinal: Yes: Normal Bowel Sounds, Soft. No: Tenderness Extremities: Yes: Other (L fot more erythematous. Not warm. + black areas heel and lateral 5th MTH) Edema: No Labs: CBC, BMP 11/22/17 07:10 11/22/17 07:10 INR, PTT INR 1.18 (0.83-1.09) H 11/21/17 09:52 Assessment/Plan Ischemia L foot leukocytosis PVD DM Continue empiric zosyn/ vancomycin Await c/s Vascular follow up
--- NOTE | 2017-11-22 10:28 | PN ---
Progress Note, Physician Chief Complaint: no cp or sob History of Present Illness: 57 year old female with DM and PVD. Pt is s/p amputation a week ago of the 2nd digit. Pt seen in wound care clinic and per Dr. Jones, concerned for ischemia to the L foot and poorly healing wound. Pt with red, warm foot, but unable to palptate pulses or doppler pulses. Hx of bypass to LLE. Pt with pain to LLE x 1 week. She is awaiting revascularization. According to the patient, she had a pharmacologic nuclear stress test with Dr. Yahir Lloyd on 11/07/17. She does not know the results. EKG NSR without acute changes. - Current Medication List Current Medications: Active Medications Atorvastatin Calcium (Lipitor -) 40 mg PO HS SE[facility]O Last Admin: 11/21/17 22:53 Dose: 40 mg Heparin Sodium (Porcine) (Heparin -) 1,000 unit IVPUSH PRN PRN PRN Reason: Heparin Heparin Sodium (Porcine) (Heparin -) 5,000 unit IVPUSH PRN PRN PRN Reason: Heparin Heparin Sodium (Porcine) 25, (000 unit/ Sodium Chloride) 500 mls @ 20 mls/hr IV TITR [facility]; Protocol Last Admin: 11/21/17 17:05 Dose: 1,000 unit/hr, 20 mls/hr Vancomycin HCl (Vancomycin (Pre-Docked)) 1,000 mg in 250 mls @ 166.667 mls/hr IVPB Q12H [facility]; Protocol Last Admin: 11/22/17 05:20 Dose: 166.667 mls/hr Piperacillin Sod/Tazobactam (Sod 3.375 gm/ Dextrose) 50 mls @ 100 mls/hr IVPB Q8H-IV [facility]; Protocol Last Admin: 11/22/17 09:37 Dose: 100 mls/hr Insulin Aspart (Novolog Vial Sliding Scale -) 1 vial SQ ACHS [facility]; Protocol Last Admin: 11/22/17 06:20 Dose: 6 units Insulin Detemir (Levemir Vial) 10 units SQ HS [facility] Last Admin: 11/21/17 22:51 Dose: 10 unit Oxycodone HCl (Roxicodone -) 5 mg PO Q6H PRN PRN Reason: PAIN LEVEL 7 - 10 Last Admin: 11/21/17 21:10 Dose: 5 mg Polyethylene Glycol (Miralax (For Daily Use) -) 17 gm PO DAILY [facility] Last Admin: 11/22/17 09:36 Dose: 17 gm Senna (Senna -) 1 tab PO [facility] - Objective Vital Signs: Vital Signs Temperature 98 F 11/22/17 09:20 Pulse Rate 71 11/22/17 09:20 Respiratory Rate 20 11/22/17 09:20 Blood Pressure 146/77 11/22/17 09:20 O2 Sat by Pulse Oximetry (%) 98 11/22/17 06:00 Constitutional: Yes: No Distress, Calm Eyes: Yes: Conjunctiva Clear, EOM Intact HENT: Yes: Atraumatic, Normocephalic Neck: Yes: Supple, Trachea Midline Cardiovascular: Yes: Regular Rate and Rhythm Respiratory: Yes: CTA Bilaterally Gastrointestinal: Yes: Normal Bowel Sounds, Soft Edema: No Peripheral Pulses WNL: No Peripheral Pulses: Left Doralis Pedis: 0, Left Femoral: 0 Labs: CBC, BMP 11/22/17 07:10 11/22/17 07:10 INR, PTT INR 1.18 (0.83-1.09) H 11/21/17 09:52 Assessment/Plan 57 year old female with DM and PVD. Pt is s/p amputation a week ago of the 2nd digit. Pt seen in wound care clinic and per Dr. Jones, concerned for ischemia to the L foot and poorly healing wound. Pt with red, warm foot, but unable to palptate pulses or doppler pulses. Hx of bypass to LLE. Pt with pain to LLE x 1 week. She may be in need of additional vascular procedures. According to the patient, she had a pharmacologic nuclear stress test with Dr. Yahir Lloyd on 11/07/17. She does not know the results. EKG NSR without acute changes. Would try to obtain the recent Nuclear Stress Test results. Continue Atorvastatin/ASA There are no cardiac contraindications to surgery, she is at intermediate to high risk.
[2017-11-22 11:13] LABS: ACANTHOCYTES 0; ANISOCYTOSIS 0; HELMET CELLS 0; HOWELL-JOLLY BODIES 0; MACROCYTOSIS 0; OVALOCYTE 0; PLATELET ESTIMATE NORMAL; ROULEAU 0; SICKELED CELLS 0; TARGET CELLS 0; TEAR DROP CELLS 0; TOXIC GRANULATION 0
[2017-11-22] MEDS ORDERED: INSULIN (NOVOLOG) ASPART 100 UNITS/ML 10ML VIAL ONE ×4 (12:29→18:48)
[2017-11-22] MEDS: HEPARIN - 25,000 UNIT in SODIUM CHLORIDE 495 ML IV SCH ×2 (12:36→16:34)
[2017-11-22] MEDS: oxyCODONE HCL 5 MG TABLET PO PRN (16:35)
[2017-11-22] MEDS ORDERED: INSULIN (LEVEMIR) 100 UNITS/ML UNITS SQ SCH (20:30)
[2017-11-22] MEDS: ATORVASTATIN CA 40 MG TABLET (FP) PO SCH (21:11)
[2017-11-22] MEDS ORDERED: SENNOSIDES 8.6MG TABLET (FP) PO SCH (22:00)
[2017-11-23] MEDS ORDERED: PIPERACILLIN/TAZOBACTAM 3.375 GM VIAL IVPB ONE ×2 (00:53→09:52)
[2017-11-23] MEDS ORDERED: DEXTROSE 5%-WATER - 50 ML IVPB ONE ×2 (00:53→09:52)
[2017-11-23] MEDS: oxyCODONE HCL 5 MG TABLET PO PRN ×2 (01:28→22:09)
[2017-11-23] MEDS: PIPERACILLIN/TAZOB 3.375 GM 3.375 GM in DEXTROSE 5%-WATER - 50 ML IVPB SCH ×2 (01:29→09:56)
[2017-11-23] MEDS: VANCOMYCIN 1 GRAM (PRE-DOCKED) 1,000 MG/250 ML BAG IVPB SCH ×2 (03:40→16:12)
[2017-11-23] MEDS: INSULIN SLIDING SCALE (NOVOLOG) 1 VIAL SQ SCH ×3 (06:06→21:48)
[2017-11-23 07:57] LABS: HEMATOCRIT 24.7 % (32.4-45.2); MCH 28.3 pg (25.7-33.7); MCHC 32.5 g/dl (32.0-36.0); MEAN CELL VOLUME 87.3 fl (80-96); MEAN PLT VOLUME 8.3 fl (7.5-11.1); PLATELET COUNT 310 K/MM3 (134-434); RBC 2.83 M/mm3 (3.60-5.2); RDW 13.3 % (11.6-15.6); WHITE BLOOD COUNT 19.4 K/mm3 (4.0-10.0)
--- NOTE | 2017-11-23 08:50 | PN ---
Progress Note, Physician Chief Complaint: AWAKE ALERT MILD DISTRESS LEG PAIN - Current Medication List Current Medications: Active Medications Atorvastatin Calcium (Lipitor -) 40 mg PO HS [facility] Last Admin: 11/22/17 21:11 Dose: 40 mg Heparin Sodium (Porcine) (Heparin -) 1,000 unit IVPUSH PRN PRN PRN Reason: Heparin Heparin Sodium (Porcine) (Heparin -) 5,000 unit IVPUSH PRN PRN PRN Reason: Heparin Heparin Sodium (Porcine) 25, (000 unit/ Sodium Chloride) 500 mls @ 20 mls/hr IV TITR [facility]; Protocol Last Admin: 11/22/17 16:34 Dose: Not Given Vancomycin HCl (Vancomycin (Pre-Docked)) 1,000 mg in 250 mls @ 166.667 mls/hr IVPB Q12H [facility]; Protocol Last Admin: 11/23/17 03:40 Dose: 166.667 mls/hr Piperacillin Sod/Tazobactam (Sod 3.375 gm/ Dextrose) 50 mls @ 100 mls/hr IVPB Q8H-IV [facility]; Protocol Last Admin: 11/23/17 01:29 Dose: 100 mls/hr Insulin Aspart (Novolog Vial Sliding Scale -) 1 vial SQ ACHS [facility]; Protocol Last Admin: 11/23/17 06:06 Dose: 4 units Insulin Detemir (Levemir Vial) 15 units SQ HS [facility] Last Admin: 11/22/17 21:11 Dose: 15 unit Oxycodone HCl (Roxicodone -) 5 mg PO Q6H PRN PRN Reason: PAIN LEVEL 7 - 10 Last Admin: 11/23/17 01:28 Dose: 5 mg Polyethylene Glycol (Miralax (For Daily Use) -) 17 gm PO DAILY [facility] Last Admin: 11/22/17 09:36 Dose: 17 gm Senna (Senna -) 1 tab PO HS [facility] Last Admin: 11/22/17 21:09 Dose: 1 tab - Objective Vital Signs: Vital Signs Temperature 98.7 F 11/23/17 06:25 Pulse Rate 73 11/23/17 06:25 Respiratory Rate 20 11/23/17 06:25 Blood Pressure 140/69 11/23/17 06:25 O2 Sat by Pulse Oximetry (%) 97 11/22/17 21:00 Constitutional: Yes: Mild Distress Eyes: Yes: WNL HENT: Yes: WNL Neck: Yes: WNL Cardiovascular: Yes: WNL Respiratory: Yes: WNL Gastrointestinal: Yes: WNL Genitourinary: Yes: WNL Musculoskeletal: Yes: Muscle Weakness Extremities: Yes: Amputation, Deformity Integumentary: Yes: Erythema, Rash, Venous Stasis Changes Wound/Incision: Yes: Open to air Neurological: Yes: Other ...Motor Strength: LLE Psychiatric: Yes: Other Labs: CBC, BMP 11/23/17 07:45 11/22/17 18:40 INR, PTT INR 1.18 (0.83-1.09) H 11/21/17 09:52 Problem List - Problems (1) Noncompliance of patient with dietary regimen Code(s): Z91.11 - PATIENT'S NONCOMPLIANCE WITH DIETARY REGIMEN (2) Ischemic pain of left foot Code(s): M79.672 - PAIN IN LEFT FOOT; I99.9 - UNSPECIFIED DISORDER OF CIRCULATORY SYSTEM (3) Occlusion of bypass graft Code(s): T82.898A - [facility] COMPLICATION OF VASCULAR PROSTH DEV/GRFT, INIT (4) Gangrene Code(s): I96 - GANGRENE, NOT ELSEWHERE CLASSIFIED (5) IDDM (insulin dependent diabetes mellitus) Code(s): E11.9 - TYPE 2 DIABETES MELLITUS WITHOUT COMPLICATIONS; Z79.4 - [facility] (CURRENT) USE OF INSULIN (6) Ischemic foot pain at rest Code(s): I73.9 - PERIPHERAL VASCULAR DISEASE, UNSPECIFIED (7) Diabetes mellitus Code(s): E11.9 - TYPE 2 DIABETES MELLITUS WITHOUT COMPLICATIONS Qualifiers: Diabetes mellitus type: type 2 (8) HTN (hypertension) Code(s): I10 - ESSENTIAL (PRIMARY) HYPERTENSION (9) PAD (peripheral artery disease) Code(s): I73.9 - PERIPHERAL VASCULAR DISEASE, UNSPECIFIED Assessment/Plan CARDIOLOGY CLEARANCE FOR ANGIO LEFT LEG ENDOCRINE CONSULT FOR LONG STANDING MEDICALLY CLEARED FOR ANGIO/BYPASS IF NEEDED TODAY NON-COMPLIANT DIABETIC WITH POOR DIET AND MEDICAL REGIMEN DIETARY CONSULT THAT THE IMPORTANCE OF DIET AND MEDICAL FOLLOW UP IS IMPORTANT TO IMPROVE HER RECOVERY AND PROGNOSIS. PAIN CONTROL/IV ABX AC PT EVAL SN[facility]
[2017-11-23] MEDS: POLYETHYLENE GLYCOL 3350 119 GM BTL PO SCH (09:55)
[2017-11-23] MEDS: HEPARIN - 25,000 UNIT in SODIUM CHLORIDE 495 ML IV SCH ×3 (10:10→17:39)
[2017-11-23 12:06] VITALS: BMI 30.1
[2017-11-23] MEDS ORDERED: INSULIN SLIDING SCALE (NOVOLOG) 1 VIAL SQ SCH (12:32)
[2017-11-23] MEDS ORDERED: LIDOCAINE HCL 2% (20ML MULTI-DOSE VIAL) NR ONE (15:45)
[2017-11-23] MEDS ORDERED: HEPARIN NA (PORCINE) 5,000 UNITS/ML 1ML VIAL ONE (15:45)
[2017-11-23] MEDS ORDERED: methylPREDNISolone NA SUCC 125 MG/2 ML VIAL ONE (16:11)
[2017-11-23] MEDS ORDERED: MIDAZOLAM HCL 2 MG/2 ML SINGLE DOSE VIAL ONE ×2 (16:15→16:48)
[2017-11-23] MEDS ORDERED: SODIUM CHLORIDE 0.9% P/F 10 ML VIAL IJ ONE (16:17)
[2017-11-23] MEDS ORDERED: ceFAZolin SODIUM 1 GM VIAL ONE (16:17)
[2017-11-23] MEDS ORDERED: ceFAZolin SODIUM 1 GM VIAL IVPB ONE (16:44)
[2017-11-23] MEDS ORDERED: PROPOFOL 20 ML ONE (16:46)
[2017-11-23] MEDS ORDERED: LIDOCAINE HCL 2% (50ML VIAL) PNB ONE (16:50)
[2017-11-23] MEDS ORDERED: IOHEXOL 300 MG/ML INFUS..BTL IV ONE (16:50)
--- NOTE | 2017-11-23 18:07 | OP ---
Operative Note - Note: Operative Date: 11/23/17 Pre-Operative Diagnosis: Left foot ischemia Operation: Aortogram, LLE Angiogram, SFA DCB angioplasty, Popliteal artery angioplasty Findings: SFA stent occlusion Post-Operative Diagnosis: Same as Pre-op Surgeon: Gen Jones Anesthesia: Fractional Estimated Blood Loss (mls): 50 Operative Report Dictated: Yes
[2017-11-23] MEDS ORDERED: CLOPIDOGREL BISULFATE 75 MG TABLET (FP) ONE (18:58)
[2017-11-23] MEDS: CLOPIDOGREL BISULFATE 75 MG TABLET (FP) PO SCH (19:15)
--- NOTE | 2017-11-23 21:18 | OP ---
DATE OF OPERATION: 11/23/2017 PREOPERATIVE DIAGNOSIS: Left lower extremity ischemia. POSTOPERATIVE DIAGNOSIS: Left lower extremity ischemia. PROCEDURE: Aortogram, left lower extremity angiogram, superficial femoral artery drug-coated balloon angioplasty, popliteal artery angioplasty. SURGEON: Gen Hadley DO ANESTHESIA: Fractional. BLOOD LOSS: 50 mL FINDINGS: Patient had left SFA stents from the origin all the way to above the knee, which were occluded. Patient had below-knee popliteal artery stenosis of about 80%. Patient was consented for the procedure, understanding all risks, benefits, and alternatives and then taken to the operating room. Once in the operating room, was laid on the operating table in supine manner, and the areas of the left and right groins were prepped and draped in a sterile surgical manner. We then went ahead and injected 10 mL of lidocaine 1% over the right common femoral artery. We then went ahead and used our micropuncture needle and punctured the right common femoral artery and micropuncture wire was inserted and a traditional 5-Upper Sorbian sheath was inserted. We then placed a 0.035 floppy guidewire up into the aorta, followed by our Omni Flush catheter. We then shot an aortogram via hand injection showing that the aorta and iliac arteries were without any disease. We then placed our 0.035 stiff guidewire up and over to the left common femoral artery and our Omni Flush catheter followed. We then placed a wire into the profunda. We removed our Omni Flush catheter, and we placed a 6 x 45 crossover sheath. Next, 5000 units of IV heparin were administered to the patient. At this point, we were able to selectively cannulate into the stent and our wire was placed inside the SFA stent and it was then placed into the peroneal artery. Angiogram was then performed, showing that the SFA stent was completely occluded, and the above-knee popliteal artery was patent, but the below-knee popliteal artery had significant stenosis, about 80% to 90%. The main runoff that the patient has is going to be the anterior tibial artery. At this point, 5000 units of IV heparin were administered to the patient. We placed our wire through the stent and down into the peroneal artery. We then went ahead and used a 5 x 200 balloon and performed venoplasty of the entire stent. We then went ahead and used two 6 x 150 balloons, and we were able to perform drug-coated balloon angioplasty of the stent. Once we finished using the drug-coated balloon angioplasty, we then went ahead and used a 4 x 8 balloon and performed angioplasty of the below-knee popliteal artery. Complete angiogram now showed that the SFA stents were patent, the popliteal artery was patent, and there were no issues of any dissection. Patient had 2-vessel runoff into the foot but mainly the DP which was filling and lining up the entire foot. Patient has a good dopplerable DP signal now. At this point, no more intervention was needed. We brought our sheath up and over, and StarClose device was successfully deployed in the right common femoral artery. Pressure was held there for 5 minutes. After which, there was no bleeding. Area was wet and dried, and Dermabond was placed. The patient tolerated the procedure with no complications. Patient transferred to PACU in stable condition. GEN HADLEY DO [id number]
[2017-11-23] MEDS ORDERED: INSULIN (NOVOLOG) ASPART 100 UNITS/ML 10ML VIAL ONE (21:36)
[2017-11-23] MEDS: ATORVASTATIN CA 40 MG TABLET (FP) PO SCH (21:44)
[2017-11-23] MEDS: SENNOSIDES 8.6MG TABLET (FP) PO SCH (21:45)
[2017-11-23] MEDS: INSULIN (LEVEMIR) 100 UNITS/ML UNITS SQ SCH (21:49)
[2017-11-23] MEDS ORDERED: INSULIN (LEVEMIR) 100 UNITS/ML UNITS SQ SCH (22:00)
--- NOTE | 2017-11-23 23:07 | CONSULT ---
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 The patient has compliant with Augmentin and Tylenol 3.sp left le angiogram stenting,patient had not been compliant with diabetic regiment and checking sugars. - History Source History Provided By: Patient - Past Medical History Cardio/Vascular: Yes: HTN ...LMP: 02/15/15 Endocrine: Yes: Diabetes Mellitus - Past Surgical History Past Surgical History: Yes: Amputation - Alcohol/Substance Use Hx Alcohol Use: No - Smoking History Smoking history: Never smoked Have you smoked in the past 12 months: No Home Medications - Allergies Allergies/Adverse Reactions: Allergies Allergy/AdvReac Type Severity Reaction Status Date / Time Iodinated Contrast- Oral and Allergy Verified 11/21/17 09:38 IV Dye - Home Medications Home Medications: Ambulatory Orders Aspirin [ASA -] 81 mg PO DAILY 05/03/17 Glipizide 5 mg PO DAILY 05/03/17 Atorvastatin Ca [Lipitor] 40 mg PO HS #30 tablet 05/10/17 Escitalopram Oxalate [Lexapro -] 1 tab PO DAILY 05/31/17 Acetaminophen with Codeine [Tylenol with Codeine #3 Tablet] 1 each PO TID PRN Amoxicillin/Potassium Clav [Augmentin 875-125 Tablet] 1 each PO BID 11/21/17 Review of Systems - Review of Systems Constitutional: reports: Lethargy, Weakness Eyes: reports: Double Vision HENT: reports: Difficult Swallowing Neck: reports: Decreased ROM Cardiovascular: reports: Shortness of Breath Respiratory: reports: Exercise Intolerance Gastrointestinal: reports: Bloating, Constipation Genitourinary: reports: No Symptoms Musculoskeletal: reports: Joint Swelling, Muscle Pain, Muscle Cramps Neurological: reports: Weakness Endocrine: reports: Unexplained Weight Loss Physical Exam Vital Signs: Vital Signs Temperature 98.0 F 11/23/17 20:00 Pulse Rate 82 11/23/17 20:00 Respiratory Rate 18 11/23/17 20:00 Blood Pressure 145/68 11/23/17 20:00 O2 Sat by Pulse Oximetry (%) 92 L 11/23/17 20:00 Constitutional: Yes: Anxious Eyes: Yes: EOM Intact HENT: Yes: Normocephalic Neck: Yes: Trachea Midline Cardiovascular: Yes: Tachycardia Respiratory: Yes: CTA Bilaterally Gastrointestinal: Yes: Normal Bowel Sounds ...Rectal Exam: Yes: Deferred Musculoskeletal: Yes: Joint Swelling, Muscle Pain, Muscle Weakness Extremities: Yes: Cool Edema: No Wound/Incision: Yes: Well Approximated Neurological: Yes: Alert, Oriented Labs: CBC, BMP 11/23/17 07:45 11/22/17 18:40 Problem List - Problems (1) Ischemic pain of left foot Code(s): M79.672 - PAIN IN LEFT FOOT; I99.9 - UNSPECIFIED DISORDER OF CIRCULATORY SYSTEM (2) Noncompliance of patient with dietary regimen Code(s): Z91.11 - PATIENT'S NONCOMPLIANCE WITH DIETARY REGIMEN (3) Occlusion of bypass graft Code(s): T82.898A - [facility] COMPLICATION OF VASCULAR PROSTH DEV/GRFT, INIT (4) Gangrene Code(s): I96 - GANGRENE, NOT ELSEWHERE CLASSIFIED (5) IDDM (insulin dependent diabetes mellitus) Code(s): E11.9 - TYPE 2 DIABETES MELLITUS WITHOUT COMPLICATIONS; Z79.4 - [facility] (CURRENT) USE OF INSULIN Assessment/Plan Current Active Problems Ischemic pain of left foot (Acute) Noncompliance of patient with dietary regimen (Acute) Occlusion of bypass graft (Acute) diabetes mellitus hyperglycemia Abnormal Lab Results 11/23/17 11/23/17 11/23/17 07:45 07:45 20:45 WBC 19.4 H RBC 2.83 L Hgb 8.0 L Hct 24.7 L PTT (Actin FS) 48.0 H 37.8 H diabetic neuropathy Laboratory Results - last 24 hr 11/22/17 11/23/17 11/23/17 17:07 01:18 06:03 WBC RBC Hgb Hct MCV MCH MCHC RDW Plt Count MPV PTT (Actin FS) POC Glucometer 451 368 263 Stool Occult Blood 11/23/17 11/23/17 11/23/17 07:45 07:45 09:15 WBC 19.4 H RBC 2.83 L Hgb 8.0 L Hct 24.7 L MCV 87.3 MCH 28.3 MCHC 32.5 RDW 13.3 Plt Count 310 MPV 8.3 PTT (Actin FS) 48.0 H POC Glucometer Stool Occult Blood Negative 11/23/17 11/23/17 11/23/17 10:03 12:06 18:20 WBC RBC Hgb Hct MCV MCH MCHC RDW Plt Count MPV PTT (Actin FS) POC Glucometer 126 107 133 Stool Occult Blood 11/23/17 11/23/17 20:45 21:46 WBC RBC Hgb Hct MCV MCH MCHC RDW Plt Count MPV PTT (Actin FS) 37.8 H POC Glucometer 218 Stool Occult Blood plan: bgm qid novolog insulin doses levemir Current Medications Generic Name Dose Route Start Last Admin Trade Name Freq PRN Reason Stop Dose Admin Atorvastatin Calcium 40 mg 11/23/17 22:00 11/23/17 21:44 Lipitor - PO 40 mg HS [facility] Administration Clopidogrel Bisulfate 75 mg 11/23/17 18:15 11/23/17 19:15 Plavix - PO 75 mg DAILY [facility] Administration Vancomycin HCl 1,000 mg in 250 mls @ 166.667 mls/hr 11/24/17 04:30 Vancomycin (Pre-Docked) IVPB Q12H [facility] Protocol Piperacillin Sod/Tazobactam 50 mls @ 100 mls/hr 11/24/17 02:00 Sod 3.375 gm/ Dextrose IVPB Q8H-IV [facility] Protocol Insulin Aspart 1 vial 11/23/17 22:00 11/23/17 21:48 Novolog Vial Sliding Scale - SQ 4 units ACHS [facility] Administration Protocol Insulin Detemir 30 units 11/24/17 07:00 Levemir Vial SQ AM [facility] Insulin Detemir 15 units 11/23/17 22:00 11/23/17 21:49 Levemir Vial SQ 15 units HS [facility] Administration Oxycodone HCl 5 mg 11/23/17 18:25 11/23/17 22:09 Roxicodone - PO 5 mg Q6H PRN Administration PAIN LEVEL 7 - 10 Polyethylene Glycol 17 gm 11/24/17 10:00 Miralax (For Daily Use) - PO DAILY [facility] Senna 1 tab 11/23/17 22:00 11/23/17 21:45 Senna - PO Not Given HS [facility]
[2017-11-24] MEDS ORDERED: DEXTROSE 5%-WATER - 50 ML IVPB ONE ×2 (00:26→09:25)
[2017-11-24] MEDS ORDERED: PIPERACILLIN/TAZOBACTAM 3.375 GM VIAL IVPB ONE ×2 (00:26→09:25)
[2017-11-24] MEDS: PIPERACILLIN/TAZOB 3.375 GM 3.375 GM in DEXTROSE 5%-WATER - 50 ML IVPB SCH ×3 (01:22→10:23)
[2017-11-24] MEDS: VANCOMYCIN 1 GRAM (PRE-DOCKED) 1,000 MG/250 ML BAG IVPB SCH ×2 (04:05→17:01)
[2017-11-24] MEDS: INSULIN (LEVEMIR) 100 UNITS/ML UNITS SQ SCH ×2 (06:07→22:06)
[2017-11-24] MEDS: INSULIN SLIDING SCALE (NOVOLOG) 1 VIAL SQ SCH ×4 (06:10→22:08)
[2017-11-24] MEDS ORDERED: INSULIN (LEVEMIR) 100 UNITS/ML UNITS SQ SCH (07:00)
[2017-11-24 07:52] LABS: HEMATOCRIT 23.7 % (32.4-45.2); HEMOGLOBIN 7.6 GM/dL (10.7-15.3); MCHC 32.2 g/dl (32.0-36.0); MEAN CELL VOLUME 87.1 fl (80-96); MEAN PLT VOLUME 8.7 fl (7.5-11.1); PLATELET COUNT 248 K/MM3 (134-434); RBC 2.73 M/mm3 (3.60-5.2); RDW 13.5 % (11.6-15.6); WHITE BLOOD COUNT 12.6 K/mm3 (4.0-10.0)
--- NOTE | 2017-11-24 09:47 | PN ---
Progress Note, Physician Chief Complaint: AWAKE ALERT EATING BREAKFAST MILD DISTRESS SITTING UP IN BED - Current Medication List Current Medications: Active Medications Atorvastatin Calcium (Lipitor -) 40 mg PO HS [facility] Last Admin: 11/23/17 21:44 Dose: 40 mg Clopidogrel Bisulfate (Plavix -) 75 mg PO DAILY [facility] Last Admin: 11/23/17 19:15 Dose: 75 mg Vancomycin HCl (Vancomycin (Pre-Docked)) 1,000 mg in 250 mls @ 166.667 mls/hr IVPB Q12H [facility]; Protocol Last Admin: 11/24/17 04:05 Dose: 166.667 mls/hr Piperacillin Sod/Tazobactam (Sod 3.375 gm/ Dextrose) 50 mls @ 100 mls/hr IVPB Q8H-IV [facility]; Protocol Last Admin: 11/24/17 01:22 Dose: 100 mls/hr Insulin Aspart (Novolog Vial Sliding Scale -) 1 vial SQ ACHS [facility]; Protocol Last Admin: 11/24/17 06:10 Dose: 4 units Insulin Detemir (Levemir Vial) 30 units SQ AM [facility] Last Admin: 11/24/17 06:07 Dose: 30 units Insulin Detemir (Levemir Vial) 15 units SQ HS [facility] Last Admin: 11/23/17 21:49 Dose: 15 units Oxycodone HCl (Roxicodone -) 5 mg PO Q6H PRN PRN Reason: PAIN LEVEL 7 - 10 Last Admin: 11/23/17 22:09 Dose: 5 mg Polyethylene Glycol (Miralax (For Daily Use) -) 17 gm PO DAILY [facility] Senna (Senna -) 1 tab PO HS [facility] Last Admin: 11/23/17 21:45 Dose: Not Given - Objective Vital Signs: Vital Signs Temperature 98 F 11/24/17 06:25 Pulse Rate 76 11/24/17 06:25 Respiratory Rate 20 11/24/17 06:25 Blood Pressure 148/74 11/24/17 06:25 O2 Sat by Pulse Oximetry (%) 92 L 11/23/17 21:00 Constitutional: Yes: Mild Distress Eyes: Yes: WNL HENT: Yes: WNL Neck: Yes: WNL Cardiovascular: Yes: WNL Respiratory: Yes: WNL Gastrointestinal: Yes: WNL Genitourinary: Yes: WNL Musculoskeletal: Yes: Muscle Weakness Extremities: Yes: Deformity Edema: No Peripheral Pulses WNL: Yes Integumentary: Yes: Venous Stasis Changes Wound/Incision: Yes: Dressing Dry and Intact Neurological: Yes: Pre-Existing Deficit ...Motor Strength: LLE, RLE Psychiatric: Yes: Other Labs: CBC, BMP 11/24/17 06:30 11/22/17 18:40 INR, PTT INR 1.18 (0.83-1.09) H 11/21/17 09:52 Problem List - Problems (1) Noncompliance of patient with dietary regimen Code(s): Z91.11 - PATIENT'S NONCOMPLIANCE WITH DIETARY REGIMEN (2) Ischemic pain of left foot Code(s): M79.672 - PAIN IN LEFT FOOT; I99.9 - UNSPECIFIED DISORDER OF CIRCULATORY SYSTEM (3) Occlusion of bypass graft Code(s): T82.898A - [facility] COMPLICATION OF VASCULAR PROSTH DEV/GRFT, INIT (4) Gangrene Code(s): I96 - GANGRENE, NOT ELSEWHERE CLASSIFIED (5) IDDM (insulin dependent diabetes mellitus) Code(s): E11.9 - TYPE 2 DIABETES MELLITUS WITHOUT COMPLICATIONS; Z79.4 - LONGTERM (CURRENT) USE OF INSULIN (6) Ischemic foot pain at rest Code(s): I73.9 - PERIPHERAL VASCULAR DISEASE, UNSPECIFIED (7) Diabetes mellitus Code(s): E11.9 - TYPE 2 DIABETES MELLITUS WITHOUT COMPLICATIONS Qualifiers: Diabetes mellitus type: type 2 (8) HTN (hypertension) Code(s): I10 - ESSENTIAL (PRIMARY) HYPERTENSION (9) PAD (peripheral artery disease) Code(s): I73.9 - PERIPHERAL VASCULAR DISEASE, UNSPECIFIED Assessment/Plan OPERATIVE NOTES REVIEWED SFA OCCLUSION LEFT LEG CARDIO/VASC F/U APPRECIATED AC LIPID CONTROL BGM CONTROL D/W PATIENT ENDOCRINE CONSULT WILL NEED STRICT DIABETES CARE PT EVAL SNF
[2017-11-24] MEDS: POLYETHYLENE GLYCOL 3350 119 GM BTL PO SCH (10:24)
[2017-11-24] MEDS: CLOPIDOGREL BISULFATE 75 MG TABLET (FP) PO SCH (10:24)
--- NOTE | 2017-11-24 13:09 | PN ---
Progress Note (short form) - Note Progress Note: POD 1 Pt seen and examined. States she is doing okay today. Continues to have pain in her L foot. Eating without issue, ambulating minimally due to pain at the site of her ulcers. Denies cp/sob, n/vd, calf pain or edema. Vital Signs Temp 98 F 11/24/17 09:00 Pulse 73 11/24/17 09:00 Resp 20 11/24/17 09:00 BP 158/77 11/24/17 09:00 Pulse Ox 92 L 11/23/17 21:00 Intake & Output 11/23/17 11/24/17 11/24/17 23:59 11:59 23:59 Intake Total 1500 Output Total 400 200 Balance 1100 -200 Intake: IV 1500 Output: Urine 400 200 Void 400 200 Other: Voiding Method Bedpan Bedpan # Unmeasured Voids Void 1 500 Bowel Movement No # Bowel Movements 1 Abnormal Lab Results 11/23/17 11/24/17 20:45 06:30 WBC 12.6 H RBC 2.73 L Hgb 7.6 L Hct 23.7 L PTT (Actin FS) 37.8 H Gen: awake, alert, nad Ext: L foot rubor extending to distal calf. Approx 4x3cm ischemic ulcer over calcaneous, approx 3x2cm ischemic ulcer at lateral aspect of 5th metatarsal head , approx .5x.5cm ulcer over 3rd met head, necrotic center, no erythema or drainage. Well healed toe amps (great toe and second toe). Decreased sensation in L foot as compared to R, minimal movement of toes/ankle secondary to pain/ stiffness. Groin: L groin soft, no palpable hematoma Vasc: triphasic dp, biphasic pt appreciated by doppler. 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 Glucose 400+ this morning, signals appreciated by doppler in L foot, foot warm. Groin without hematoma. P: -Extensive discussion with pt regarding need for glucose control and adherence to Diabetic diet (pt seen by museum exhibit technician), relayed understanding and stated she will work on adherence -Extensive discussion regarding proper foot care and need for daily foot checks , pt relayed understanding -Discussed need for Plavix 75mg daily with pt, pt adamantly refusing to take Plavix, states it "makes me feel funny". Discussed concern for re-occlusion of bypass, pt continued to refuse, stating "even if the medication is sent to the pharmacy I won't take it". -Continue ASA 81mg BID -F/U with Dr Jones within 1 week above d/w attending Dr Jones
[2017-11-24] MEDS: oxyCODONE HCL 5 MG TABLET PO PRN ×2 (13:59→22:07)
--- NOTE | 2017-11-24 16:41 | PN ---
Progress Note, Physician History of Present Illness: S/P angioplasty C/O L foot pain- less No c/o fever/ chills Tolerating antibiotics - Current Medication List Current Medications: Active Medications Atorvastatin Calcium (Lipitor -) 40 mg PO HS [facility] Last Admin: 11/23/17 21:44 Dose: 40 mg Clopidogrel Bisulfate (Plavix -) 75 mg PO DAILY [facility] Last Admin: 11/24/17 10:24 Dose: 75 mg Vancomycin HCl (Vancomycin (Pre-Docked)) 1,000 mg in 250 mls @ 166.667 mls/hr IVPB Q12H [facility]; Protocol Last Admin: 11/24/17 04:05 Dose: 166.667 mls/hr Piperacillin Sod/Tazobactam (Sod 3.375 gm/ Dextrose) 50 mls @ 100 mls/hr IVPB Q8H-IV [facility]; Protocol Last Admin: 11/24/17 10:23 Dose: 100 mls/hr Insulin Aspart (Novolog Vial Sliding Scale -) 1 vial SQ ACHS [facility]; Protocol Last Admin: 11/24/17 12:00 Dose: Not Given Insulin Detemir (Levemir Vial) 30 units SQ AM [facility] Last Admin: 11/24/17 06:07 Dose: 30 units Insulin Detemir (Levemir Vial) 15 units SQ HS [facility] Last Admin: 11/23/17 21:49 Dose: 15 units Oxycodone HCl (Roxicodone -) 5 mg PO Q6H PRN PRN Reason: PAIN LEVEL 7 - 10 Last Admin: 11/24/17 13:59 Dose: 5 mg Polyethylene Glycol (Miralax (For Daily Use) -) 17 gm PO DAILY [facility] Last Admin: 11/24/17 10:24 Dose: Not Given Senna (Senna -) 1 tab PO HS [facility] Last Admin: 11/23/17 21:45 Dose: Not Given - Objective Vital Signs: Vital Signs Temperature 99.1 F 11/24/17 15:23 Pulse Rate 81 11/24/17 15:23 Respiratory Rate 17 11/24/17 15:23 Blood Pressure 151/67 11/24/17 15:23 O2 Sat by Pulse Oximetry (%) 92 L 11/23/17 21:00 Constitutional: Yes: No Distress Extremities: Yes: Other (L foot necrotic heel/ 5th MTH no change Foot warm, less red) Labs: CBC, BMP 11/24/17 06:30 11/22/17 18:40 INR, PTT INR 1.18 (0.83-1.09) H 11/21/17 09:52 Assessment/Plan Ischemia L foot leukocytosis improved PVD DM Substitute cefazolin
[2017-11-24] MEDS: SENNOSIDES 8.6MG TABLET (FP) PO SCH (22:06)
[2017-11-24] MEDS: ATORVASTATIN CA 40 MG TABLET (FP) PO SCH (22:07)
[2017-11-25] MEDS: INSULIN (LEVEMIR) 100 UNITS/ML UNITS SQ SCH (06:05)
[2017-11-25 06:06] LABS: SERUM IRON SATURATION 10 % (15-55); TOTAL IRON BINDING CAPACITY 168 ug/dL (250-450); UIBC 152 ug/dL (131-425)
[2017-11-25 07:35] LABS: HEMATOCRIT 23.3 % (32.4-45.2); HEMOGLOBIN 7.5 GM/dL (10.7-15.3); MCH 28.2 pg (25.7-33.7); MCHC 32.3 g/dl (32.0-36.0); MEAN CELL VOLUME 87.4 fl (80-96); MEAN PLT VOLUME 8.4 fl (7.5-11.1); PLATELET COUNT 243 K/MM3 (134-434); RBC 2.66 M/mm3 (3.60-5.2); RDW 13.5 % (11.6-15.6); WHITE BLOOD COUNT 12.1 K/mm3 (4.0-10.0)
[2017-11-25 07:51] LABS: ANION GAP 6 MMOL/L (8-16); BLOOD UREA NITROGEN 17 mg/dL (7-18); CALCIUM 8.1 mg/dL (8.5-10.1); CHLORIDE 102 mmol/L (98-107); CO2 30 mmol/L (21-32); CREATININE 0.7 mg/dL (0.55-1.3); GLUCOSE,RANDOM 142 mg/dL (74-106); MAGNESIUM 2.2 mg/dL (1.8-2.4); POTASSIUM 3.6 mmol/L (3.5-5.1); SODIUM 138 mmol/L (136-145)
[2017-11-25] MEDS: oxyCODONE HCL 5 MG TABLET PO PRN (08:59)
[2017-11-25] MEDS: CLOPIDOGREL BISULFATE 75 MG TABLET (FP) PO SCH (09:00)
[2017-11-25] MEDS: POLYETHYLENE GLYCOL 3350 119 GM BTL PO SCH (09:00)
[2017-11-25] MEDS: INSULIN SLIDING SCALE (NOVOLOG) 1 VIAL SQ SCH ×3 (09:01→17:34)
--- NOTE | 2017-11-25 12:33 | PN ---
Progress Note, Physician History of Present Illness: S/P angioplasty Rerports less L foot pain No c/o fever/ chills Tolerating antibiotics - Current Medication List Current Medications: Active Medications Atorvastatin Calcium (Lipitor -) 40 mg PO HS [facility] Last Admin: 11/24/17 22:07 Dose: 40 mg Clopidogrel Bisulfate (Plavix -) 75 mg PO DAILY [facility] Last Admin: 11/25/17 09:00 Dose: 75 mg Insulin Aspart (Novolog Vial Sliding Scale -) 1 vial SQ ACHS [facility]; Protocol Last Admin: 11/25/17 12:06 Dose: Not Given Insulin Detemir (Levemir Vial) 30 units SQ AM [facility] Last Admin: 11/25/17 06:05 Dose: 30 units Insulin Detemir (Levemir Vial) 15 units SQ HS [facility] Last Admin: 11/24/17 22:06 Dose: 15 units Oxycodone HCl (Roxicodone -) 5 mg PO Q6H PRN PRN Reason: PAIN LEVEL 7 - 10 Last Admin: 11/25/17 08:59 Dose: 5 mg Polyethylene Glycol (Miralax (For Daily Use) -) 17 gm PO DAILY [facility] Last Admin: 11/25/17 09:00 Dose: 17 gm Senna (Senna -) 1 tab PO HS [facility] Last Admin: 11/24/17 22:06 Dose: 1 tab - Objective Vital Signs: Vital Signs Temperature 99.6 F 11/25/17 06:47 Pulse Rate 83 11/25/17 06:47 Respiratory Rate 20 11/25/17 06:47 Blood Pressure 154/69 11/25/17 06:47 O2 Sat by Pulse Oximetry (%) 92 L 11/23/17 21:00 Constitutional: Yes: No Distress Eyes: Yes: Conjunctiva Clear Cardiovascular: Yes: Regular Rate and Rhythm, S1, S2 Respiratory: Yes: CTA Bilaterally Gastrointestinal: Yes: Normal Bowel Sounds, Soft. No: Tenderness Extremities: Yes: Other (L foot warm, hyperemic Necrotic areas on heel and 5th MTH unchanged) Labs: CBC, BMP 11/25/17 06:50 11/25/17 06:50 INR, PTT INR 1.18 (0.83-1.09) H 11/21/17 09:52 Assessment/Plan Ischemia L foot leukocytosis improved PVD DM Continue cefazolin When ready for discharge substitute keflex 500mg po q6h Hyperemia/ warmth more likely secondary to reperfusion than cellulitis
--- NOTE | 2017-11-25 14:08 | DS ---
Physical Examination Vital Signs: Vital Signs Temperature 98.8 F 11/25/17 10:00 Pulse Rate 80 11/25/17 10:00 Respiratory Rate 18 11/25/17 10:00 Blood Pressure 148/66 11/25/17 10:00 O2 Sat by Pulse Oximetry (%) 98 11/25/17 09:00 Constitutional: Yes: No Distress Eyes: Yes: WNL HENT: Yes: WNL Neck: Yes: WNL Cardiovascular: Yes: WNL Respiratory: Yes: WNL Gastrointestinal: Yes: WNL Renal/: Yes: WNL Musculoskeletal: Yes: WNL Extremities: Yes: Erythema, Other Edema: No Peripheral Pulses WNL: Yes Integumentary: Yes: Erythema Wound/Incision: Yes: Clean/Dry, Dressing Dry and Intact Neurological: Yes: Pre-Existing Deficit ...Motor Strength: LLE, RLE Psychiatric: Yes: WNL Labs: CBC, BMP 11/25/17 06:50 11/25/17 06:50 Discharge Summary Reason For Visit: DIABETIC FOOT INFECTION, ISCHEMIC PAIN OF FOOT AT Current Active Problems Ischemic pain of left foot (Acute) Noncompliance of patient with dietary regimen (Acute) Occlusion of bypass graft (Acute) Procedures: Principal: LEFT FOOT ARTERIAL OCCLUSION Hospital Course: ADMITTED VASCULAR SURGERY LEFT LEG ARTERIAL OCCLUSION, WITH ANGIOGRAPHY AND BYPASS. Condition: Improved - Instructions Diet, Activity, Other Instructions: SEE DR ALBA IN 3-4 DAYS FOR POST FOLLOW UP DR HADLEY VASCULAR SURGERY FOR F/U, WOUND CENTER ENDOCRINE CONSULT SEEN DR FOSTER HERE AT [facility] FOR DM CONTROL ADA Disposition: VNS/HOME HEALTH CARE - Home Medications Comprehensive Discharge Medication List: Ambulatory Orders Aspirin [ASA -] 81 mg PO DAILY 05/03/17 Glipizide 5 mg PO DAILY 05/03/17 Atorvastatin Ca [Lipitor] 40 mg PO HS #30 tablet 05/10/17 Escitalopram Oxalate [Lexapro -] 1 tab PO DAILY 05/31/17 Acetaminophen with Codeine [Tylenol with Codeine #3 Tablet] 1 each PO TID PRN Atorvastatin Ca [Lipitor] 40 mg PO HS tablet 11/25/17 Cephalexin [Keflex] 500 mg PO TID #45 capsule 11/25/17 Clopidogrel Bisulfate [Plavix -] 75 mg PO DAILY #30 tablet 11/25/17 Insulin Glargine,Hum.rec.anlog [Basaglar Kwikpen U-100] 100 unit SQ BID 30 Days #6 insuln.pen MDD 45 11/25/17 Insulin Lispro [Humalog Kwikpen U-100] 100 unit SQ TID PRN #5 insuln.pen Polyethylene Glycol 3350 [Miralax 119 gm Btl -] 17 gm PO DAILY bottle 11/25/17 Sennosides [Senna -] 1 tab PO HS tablet 11/25/17
[2017-11-25] MEDS ORDERED: INSULIN (NOVOLOG) ASPART 100 UNITS/ML 10ML VIAL ONE (17:17)
[2017-11-25 17:52] VITALS: BP 140/86; PULSE 89; TEMP 98.5
== END 2017-11-25 18:03 | disposition home health service (06) | DRG 173 ==
LOC: JER 09:36 → JERBED 09:53 → J8W 21:28
PROVIDERS: ADMIT Family Medicine; ATTEND Family Medicine
PROC: 047L341 Dilation of Left Femoral Artery with Drug-eluting Intraluminal Device, using Drug-Coated Balloon, Percutaneous Approach (ICD-10-PCS; principal; 2017-11-21)
PROC: 047N3Z1 Dilation of Left Popliteal Artery using Drug-Coated Balloon, Percutaneous Approach (ICD-10-PCS; 2017-11-21)
PROC: B41DZZZ Fluoroscopy of Aorta and Bilateral Lower Extremity Arteries (ICD-10-PCS; 2017-11-21)
PROC: B41GZZZ Fluoroscopy of Left Lower Extremity Arteries (ICD-10-PCS; 2017-11-21)
DX: T82.868A Thrombosis due to vascular prosthetic devices, implants and grafts, initial encounter (principal); I74.3 Embolism and thrombosis of arteries of the lower extremities; E11.52 Type 2 diabetes mellitus with diabetic peripheral angiopathy with gangrene; E11.65 Type 2 diabetes mellitus with hyperglycemia; E11.621 Type 2 diabetes mellitus with foot ulcer; E78.5 Hyperlipidemia, unspecified; Z79.4 Long term (current) use of insulin; I10 Essential (primary) hypertension; Z89.422 Acquired absence of other left toe(s); D72.829 Elevated white blood cell count, unspecified; Z91.11 Patient's noncompliance with dietary regimen; I99.8 Other disorder of circulatory system
CPT/HCPCS: 36415; 71045-TC-FY; 73630-TC-LT; 75635-TC; 80048; 80053; 80061; 81003; 81015; 82272; 82803; 82947; 82962; 83036; 83540; 83550; 83605; 83721; 83735; 84100; 85025; 85027; 85610; 85730; 86850; 86900; 86901; 87040; 87086; 93005; 93010; 93306-TC; 93880-TC; 93925-TC; 94760; 97116-GP; 97161-GP; 99284-25; G0463-25; J1644; J7030

== ENCOUNTER 2018-05-31 13:26 | Observation (INO) | payer OTHER ==
--- NOTE | 2018-05-31 14:22 | PDOC ---
History of Present Illness - General Chief Complaint: Weakness Stated Complaint: DIZZINESS Time Seen by Provider: 05/31/18 14:18 - History of Present Illness Initial Comments: 05/31/18 14:58 The patient is a 57 year old female with a history of HTN, HLD, DM, PVD who presents for evaluation of chest pain, dizziness, and weakness. The patient reports that she was walking earlier today when she began to experience chest tightness with associated shortness of breath and dizziness prompting her presentation to the ED for further evaluation. She also noted some facial numbness and generalized weakness as well. She states that her symptoms have improved somewhat on presentation to the ED, but continues to experience dizziness. She otherwise denies fevers, chills, nausea, vomiting, abdominal pain, or changes with urination or bowel movements. Past History - Past Medical History Allergies/Adverse Reactions: Allergies Allergy/AdvReac Type Severity Reaction Status Date / Time Iodinated Contrast- Oral and Allergy Verified 05/31/18 14:06 IV Dye Home Medications: Ambulatory Orders Aspirin [ASA -] 81 mg PO DAILY 05/03/17 Glipizide 5 mg PO DAILY 05/03/17 Acetaminophen with Codeine [Tylenol with Codeine #3 Tablet] 1 each PO TID PRN Collagenase Clostridium Hist. [Santyl] 1 applic TP DAILY #90 oint...g. 12/02/17 Insulin Glargine,Hum.rec.anlog 22 units SQ HS 12/02/17 Insulin Glargine,Hum.rec.anlog [Basaglar Kwikpen U-100] 2 unit SQ HS 12/02/17 Coreg 12.5 mg PO BID 02/03/18 Valacyclovir HCl 1,000 mg PO BID 02/03/18 Sulfamethoxazole/Trimethoprim [Bactrim DS -] 1 tab PO BID 03/09/18 COPD: No CHF: No Diabetes: Yes HTN: Yes Hypercholesterolemia: Yes - Surgical History Orthopedic Surgery: Yes (amp left 2nd and 3rd toes) - Immunization History Immunization Up to Date: Yes - Suicide/Smoking/Psychosocial Hx Smoking History: Never smoked Have you smoked in the past 12 months: No Hx Alcohol Use: No Drug/Substance Use Hx: No Substance Use Type: None Review of Systems - Review of Systems Comments:: 05/31/18 15:03 Constitutional: No fevers, chills, fatigue, malaise HEENT: No Rhinorrhea, nasal congestion, visual changes Cardiovascular: Chest pain. No syncope, palpitations, lightheadedness Respiratory: Shortness of breath. No Cough, Hemoptysis, Gastrointestinal: No Abdominal pain, Nausea, Vomiting, Constipation, Diarrhea, Melena Genitourinary: No Dysuria, Frequency, Urgency, Hesitancy, Hematuria, Flank pain Musculoskeletal: No Myalgia, arthralgia Skin: No rashes, itching, bruising, pallor Neurologic: Dizziness, Numbness, Weakness, No Headache or Tingling Psychiatric: No Hallucinations. No SI or HI *Physical Exam - Vital Signs Last Vital Signs Temp Pulse Resp BP Pulse Ox 97.5 F L 76 18 122/67 100 05/31/18 14:06 05/31/18 14:06 05/31/18 14:06 05/31/18 14:06 05/31/18 14:06 - Physical Exam Comments: 05/31/18 15:03 General Appearance: Nourished. No Apparent Distress HEENT: EOMI, ARNEL. No Pharyngeal Erythema, Tonsillar Exudate, Tonsillar Erythema Neck: No Cervical Lymphadenopathy Respiratory/Chest: Lungs Clear, Normal Breath Sounds. No Crackles, Rales, Rhonchi, Wheezing Cardiovascular: Regular Rhythm, Regular Rate. No Murmur, Gallops, Rubs Gastrointestinal/Abdominal: Normal Bowel Sounds, Soft. No Guarding, Rebound, Tenderness Musculoskeletal: No CVA Tenderness Extremity: Normal Capillary Refill Integumentary: Normal Color, Dry, Warm Neurologic: knotter hand II-XII NML intact, Fully Oriented, Alert, Normal Mood/Affect, Normal Response, Motor Strength 5/5. Normal Finger to Nose and Heel to Rodrigues Heart Score/ECG Review - History History: Moderately suspicious - Electrocardiogram EKG: Normal - Age Age: 45-65 - Risk Factors Risk Factors Heart Score: Yes Hx Hypercholesterolemia, Yes Hx Hypertension, Yes Hx Diabetes, Yes Positive family hx of cardiac disease Based on the list above the patient has:: >/=3 risk factors or Hx atherosclerotic disease - Troponin Troponin: </= normal limit - Score Heart Score - Total: 4 #1 ECG reviewed & interpreted by me at: 16:05 General ECG Interpretation: Sinus Rhythm, Normal Rate, Normal Intervals, No acute ischemic changes ED Treatment Course - LABORATORY CBC & Chemistry Diagram: 05/31/18 14:29 05/31/18 14:29 Medical Decision Making - Medical Decision Making 05/31/18 15:04 The patient is a 57 year old female with a history of HTN, HLD, DM, PVD who presents for evaluation of chest pain, dizziness, and weakness. Differential includes but is not limited to: ACS, TIA, UTI, Musculoskeletal, Infectious, Metabolic Derangement. Given the patient's history and physical exam, we will obtain a cbc, cmp, troponin, chest plain film, ekg, ua, head ct to evaluate further. We will continue to monitor and reassess while here in the ED. 05/31/18 17:41 CBC, cmp, troponin are unremarkable. Chest plain film is unremarkable. Head CT is unremarkable as read by our radiologist. Given the patient's cardiac risk factors, we believe she require observation admission for further monitoring. We discussed the case with Dr. Harmon who accepted the patient for admission. *DC/Admit/Observation/Transfer Diagnosis at time of Disposition: Chest pain Qualifiers: Chest pain type: unspecified Qualified Code(s): R07.9 - Chest pain, unspecified - Discharge Dispostion Condition at time of disposition: Stable Decision to Admit order: Yes - Referrals Referrals: Kimberly Luciano [Non Staff, Medical] - - Patient Instructions - Post Discharge Activity
[2018-05-31 15:38] LABS: BASO % 0.5 % (0-2.0); EOS % 8.8 % (0-4.5); HEMATOCRIT 31.9 % (32.4-45.2); HEMOGLOBIN 10.8 GM/dL (10.7-15.3); LYMPH % 18.6 % (8-40); MCH 30.5 pg (25.7-33.7); MEAN CELL VOLUME 89.9 fl (80-96); MEAN PLT VOLUME 8.7 fl (7.5-11.1); MONO % 5.1 % (3.8-10.2); PLATELET COUNT 262 K/MM3 (134-434); RBC 3.55 M/mm3 (3.60-5.2); RDW 14.1 % (11.6-15.6); WHITE BLOOD COUNT 9.3 K/mm3 (4.0-10.0)
[2018-05-31 16:05] LABS: ALBUMIN 3.6 g/dl (3.4-5.0); ALK PHOS 117 U/L (45-117); ANION GAP 4 MMOL/L (8-16); BILIRUBIN,TOTAL 0.4 mg/dL (0.2-1); BLOOD UREA NITROGEN 23 mg/dL (7-18); CHLORIDE 98 mmol/L (98-107); CO2 31 mmol/L (21-32); CREATININE 1.1 mg/dL (0.55-1.3); GLUCOSE,RANDOM 273 mg/dL (74-106); POTASSIUM 5.4 mmol/L (3.5-5.1); SGOT/AST 19 U/L (15-37); SGPT/ALT 18 U/L (13-61); SODIUM 134 mmol/L (136-145); TOT PROT 7.9 g/dl (6.4-8.2)
[2018-05-31] MEDS ORDERED: SODIUM CHLORIDE 1,000 ML IV STA (16:38)
--- NOTE | 2018-05-31 17:04 | PDOC ---
Documentation entered by Gail Zuniga SCRIBE, acting as scribe for Stacy Duke MD. Stacy Duke MD: This documentation has been prepared by the Nadia cyr Amanda, SCRIBE, under my direction and personally reviewed by me in its entirety. I confirm that the documentation accurately reflects all work, treatment, procedures, and medical decision making performed by me. Attending Attestation - Resident Resident Name: Tereso Medellin - ED Attending Attestation I have performed the following: I have examined & evaluated the patient, The case was reviewed & discussed with the resident, I agree w/resident's findings & plan, Exceptions are as noted - HPI HPI: 05/31/18 16:15 The patient is a 57 year old female with a significant past medical history of HTN, HLD, DM, PVD who presents for evaluation of chest pain, dizziness, and weakness experienced as she was walking earlier today. She reports the chest pain as tightness with associated shortness of breath, dizziness, facial numbness and generalized weakness as well. She otherwise denies fevers, chills, nausea, vomiting, abdominal pain, or changes with urination or bowel movements. - Physicial Exam PE: 05/31/18 16:16 GENERAL: The patient is in no acute distress. HEAD: Normal with no signs of trauma. EYES: PERRLA, EOMI, sclera anicteric, conjunctiva clear. ENT: Ears normal, nares patent, oropharynx clear without exudates. Moist mucous membranes. NECK: Normal range of motion, supple without lymphadenopathy, JVD, or masses. LUNGS: Breath sounds equal, clear to auscultation bilaterally. No wheezes, and no crackles. HEART:Regular rate and rhythm, normal S1 and S2 without murmur, rub or gallop. CHEST: (+) anterior chest wall tenderness ABDOMEN: Soft, nontender, normoactive bowel sounds. No guarding, no rebound. No masses palpable. EXTREMITIES: Normal range of motion, no edema. No clubbing or cyanosis. No erythema, or tenderness. NEUROLOGICAL: Cranial nerves II through XII grossly intact. Normal speech. No focal neurological deficits. MUSCULOSKELETAL: Back non-tender to palpation, no CVA tenderness SKIN: Warm, Dry, normal turgor, no rashes or lesions noted. - Medical Decision Making 05/31/18 16:42 57 yo F h/o DM, HTN, HLD, PVD s/p multiple digit amputation Pt presents to the ER with a complaint of intermittent chest pain, located in the center of the chest No fevers, chills cough No recent travel, no lower extremity edema No chest wall trauma Laboratory Tests 05/31/18 05/31/18 14:29 14:29 WBC 9.3 Hgb 10.8 Hct 31.9 L D Plt Count 262 Sodium 134 L Potassium 5.4 H Chloride 98 Carbon Dioxide 31 BUN 23 H Creatinine 1.1 Random Glucose 273 H Creatine Kinase 72 Troponin I < 0.[address] on observation given heart score 4 Heart Score/ECG Review - History History: Moderately suspicious - Electrocardiogram EKG: Normal - Age Age: 45-65 - Risk Factors Risk Factors Heart Score: Yes Hx Hypercholesterolemia, Yes Hx Hypertension, Yes Hx Diabetes Based on the list above the patient has:: >/=3 risk factors or Hx atherosclerotic disease - Troponin Troponin: </= normal limit - Score Heart Score - Total: 4
--- NOTE | 2018-05-31 19:25 | HP ---
Admitting History and Physical - Primary Care Physician PCP: Johnna Harmon - Admission History of Present Illness: 57 year old female with a significant past medical history of HTN, HLD, DM, PVD who presents for evaluation of chest pain, dizziness, and weakness experienced as she was walking earlier today. She reports the chest pain as tightness with associated shortness of breath, dizziness, facial numbness and generalized weakness as well. - Past Medical History Cardiovascular: Yes: HTN, Hyperlipdemia ...LMP: 02/15/15 Endocrine: Yes: Diabetes Mellitus - Past Surgical History Past Surgical History: Yes: Amputation, Bypass - Smoking History Smoking history: Never smoked Have you smoked in the past 12 months: No - Alcohol/Substance Use Hx Alcohol Use: No - Social History ADL: Independent History of Recent Travel: No Home Medications - Allergies Allergies/Adverse Reactions: Allergies Allergy/AdvReac Type Severity Reaction Status Date / Time Iodinated Contrast- Oral and Allergy Verified 05/31/18 14:06 IV Dye - Home Medications Home Medications: Ambulatory Orders Aspirin [ASA -] 81 mg PO DAILY 05/03/17 Glipizide 5 mg PO DAILY 05/03/17 Acetaminophen with Codeine [Tylenol with Codeine #3 Tablet] 1 each PO TID PRN Collagenase Clostridium Hist. [Santyl] 1 applic TP DAILY #90 oint...g. 12/02/17 Insulin Glargine,Hum.rec.anlog 22 units SQ HS 12/02/17 Insulin Glargine,Hum.rec.anlog [Basaglar Kwikpen U-100] 2 unit SQ HS 12/02/17 Coreg 12.5 mg PO BID 02/03/18 Valacyclovir HCl 1,000 mg PO BID 02/03/18 Sulfamethoxazole/Trimethoprim [Bactrim DS -] 1 tab PO BID 03/09/18 Physical Examination Vital Signs: Vital Signs Temperature 97.5 F L 05/31/18 14:06 Pulse Rate 76 05/31/18 14:06 Respiratory Rate 18 05/31/18 14:06 Blood Pressure 122/67 05/31/18 14:06 O2 Sat by Pulse Oximetry (%) 100 05/31/18 14:06 Constitutional: Yes: No Distress HENT: Yes: Atraumatic Neck: Yes: Supple Cardiovascular: Yes: Regular Rate and Rhythm Respiratory: Yes: CTA Bilaterally Gastrointestinal: Yes: Normal Bowel Sounds Extremities: Yes: WNL Neurological: Yes: Alert, Oriented Labs: CBC, BMP 05/31/18 14:29 05/31/18 14:29 Problem List - Problems (1) Chest pain Assessment/Plan: fu cardiac profile tele monitoring cardiologyconsult Code(s): R07.9 - CHEST PAIN, UNSPECIFIED Qualifiers: Chest pain type: precordial pain Qualified Code(s): R07.2 - Precordial pain (2) IDDM (insulin dependent diabetes mellitus) Assessment/Plan: insulin bgms Code(s): E11.9 - TYPE 2 DIABETES MELLITUS WITHOUT COMPLICATIONS; 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 (3) HTN (hypertension) Assessment/Plan: continue home meds Code(s): I10 - ESSENTIAL (PRIMARY) HYPERTENSION Qualifiers: Hypertension type: essential hypertension Qualified Code(s): I10 - Essential (primary) hypertension Assessment/Plan Laboratory Tests 05/31/18 05/31/18 14:29 14:29 WBC 9.3 RBC 3.55 L Hgb 10.8 Hct 31.9 L D MCV 89.9 MCH 30.5 MCHC 34.0 RDW 14.1 D Plt Count 262 MPV 8.7 Absolute Neuts (auto) 6.2 Neutrophils % 67.0 Lymphocytes % 18.6 D Monocytes % 5.1 Eosinophils % 8.8 H D Basophils % 0.5 Nucleated RBC % 0 Sodium 134 L Potassium 5.4 H Chloride 98 Carbon Dioxide 31 Anion Gap 4 L BUN 23 H Creatinine 1.1 Creat Clearance w eGFR 51.38 Random Glucose 273 H Calcium 10.0 Total Bilirubin 0.4 AST 19 ALT 18 Alkaline Phosphatase 117 Creatine Kinase 72 Troponin I < 0.02 Total Protein 7.9 Albumin 3.6 TSH 1.75 Active Medications Generic Name Dose Route Start Last Admin Trade Name Freq PRN Reason Stop Dose Admin Acetaminophen 650 mg 05/31/18 19:32 Tylenol - PO Q6H PRN FEVER Aspirin 81 mg 06/01/18 10:00 06/01/18 09:34 Asa - PO 81 mg DAILY SEVERIANO Administration Carvedilol 12.5 mg 05/31/18 22:00 06/01/18 09:34 Coreg - PO 12.5 mg BID SEVERIANO Administration Glipizide 5 mg 06/01/18 07:00 06/01/18 06:31 Glucotrol - PO 5 mg DAILY@0700 SEVERIANO Administration Heparin Sodium (Porcine) 5,000 unit 05/31/18 22:00 06/01/18 09:35 Heparin - SQ 5,000 unit BID SEVERIANO Administration Insulin Detemir 22 units 05/31/18 22:00 05/31/18 22:35 Levemir Vial SQ 22 units HS SEVERIANO Administration
[2018-05-31] MEDS ORDERED: ACETAMINOPHEN 325 MG TABLET (FP) PO PRN (19:32)
[2018-05-31 19:55] LABS: EPI CELLS 2.2 /HPF (0-5/HPF); URINE APPEARANCE CLEAR; URINE BACTERIA 7862.2 /hpf (NEGATIVE); URINE BILIRUBIN NEGATIVE (NEGATIVE); URINE CASTS 4 /lpf (0-8); URINE COLOR YELLOW; URINE GLUCOSE (UA) 1+ (NEGATIVE); URINE KETONE NEGATIVE (NEGATIVE); URINE LEUK ESTERASE 1+ (NEGATIVE); URINE NITRITE POSITIVE (NEGATIVE); URINE PROTEIN NEGATIVE (NEGATIVE); URINE RBC 1 /hpf (0-4); URINE UROBILINOGEN 0.2 mg/dL (0.2-1.0); URINE WBC 12 /hpf (0-5)
[2018-05-31] MEDS: INSULIN (LEVEMIR) 100 UNITS/ML UNITS SQ SCH (22:35)
[2018-05-31] MEDS: HEPARIN NA (PORCINE) 5,000 UNITS/ML 1ML VIAL SQ SCH (22:37)
[2018-05-31] MEDS: CARVEDILOL 12.5 MG TABLET (FP) PO SCH (22:39)
[2018-06-01 05:47] VITALS: BMI 31.1
[2018-06-01] MEDS: glipiZIDE 5 MG TABLET (FP) PO SCH (06:31)
[2018-06-01] MEDS: ASPIRIN 81 MG CHEWABLE TABLETS PO SCH (09:34)
[2018-06-01] MEDS: CARVEDILOL 12.5 MG TABLET (FP) PO SCH ×2 (09:34→22:26)
[2018-06-01] MEDS: HEPARIN NA (PORCINE) 5,000 UNITS/ML 1ML VIAL SQ SCH ×2 (09:35→22:26)
--- NOTE | 2018-06-01 09:49 | CON.CARD ---
Consult Consult Specialty:: Cardiology Referred by:: Johnna Harmon MD Reason for Consultation:: Chest pain - History of Present Illness Chief Complaint: Chest pain History of Present Illness: 57 year old female with a significant past medical history of HTN, HLD, DM, PAD s/p femoral artery DCB angioplasty, popliteal artery angioplasty, left toe amputations and HBO2 therapy who presents for evaluation of chest pain, dizziness, and weakness experienced as she was walking yesterday. She reports the chest pain as tightness with associated shortness of breath, dizziness, diaphoresis and generalized weakness, she denies orthopnea, PND or LE edema, asymptomatic now. She reports pharmacologic nuclear stress test with Dr. Yahir Lloyd on 11/07/17, but results were not available per his office . - History Source History Provided By: Patient Limitations to Obtaining History: No Limitations - Past Medical History Cardio/Vascular: Yes: HTN, Hyperlipdemia ...LMP: 02/15/15 Endocrine: Yes: Diabetes Mellitus - Past Surgical History Past Surgical History: Yes: Amputation, Bypass - Alcohol/Substance Use Hx Alcohol Use: No - Smoking History Smoking history: Former smoker Have you smoked in the past 12 months: No If you are a former smoker, when did you quit?: 10-15 years ago - Social History Usual Living Arrangement: Alone ADL: Independent History of Recent Travel: No Home Medications - Allergies Allergies/Adverse Reactions: Allergies Allergy/AdvReac Type Severity Reaction Status Date / Time Iodinated Contrast- Oral and Allergy Verified 05/31/18 14:06 IV Dye - Home Medications Home Medications: Ambulatory Orders Aspirin [ASA -] 81 mg PO DAILY 05/03/17 Glipizide 5 mg PO DAILY 05/03/17 Acetaminophen with Codeine [Tylenol with Codeine #3 Tablet] 1 each PO TID PRN Collagenase Clostridium Hist. [Santyl] 1 applic TP DAILY #90 oint...g. 12/02/17 Insulin Glargine,Hum.rec.anlog 22 units SQ HS 12/02/17 Insulin Glargine,Hum.rec.anlog [Basaglar Kwikpen U-100] 2 unit SQ HS 12/02/17 Coreg 12.5 mg PO BID 02/03/18 Valacyclovir HCl 1,000 mg PO BID 02/03/18 Sulfamethoxazole/Trimethoprim [Bactrim DS -] 1 tab PO BID 03/09/18 Review of Systems - Review of Systems Cardiovascular: reports: Chest Pain, Shortness of Breath Vital Signs: Vital Signs Temperature 98.2 F 06/01/18 02:00 Pulse Rate 78 06/01/18 02:00 Respiratory Rate 20 06/01/18 02:00 Blood Pressure 125/55 L 06/01/18 02:00 O2 Sat by Pulse Oximetry (%) 100 05/31/18 23:10 Constitutional: Yes: No Distress, Calm Neck: Yes: Supple Respiratory: Yes: Regular, CTA Bilaterally Gastrointestinal: Yes: Normal Bowel Sounds, Soft Cardiovascular: Yes: Regular Rate and Rhythm JVD: No Carotid Bruit: No Heart Sounds: Yes: S1, S2 Extremities: Yes: Amputation (Left toe amputations) Edema: No - Other Data Labs, Other Data: CBC, BMP 05/31/18 14:29 05/31/18 14:29 Troponin, BNP 05/31/18 05/31/18 14:29 21:58 Troponin I < 0.02 < 0.02 Troponin, BNP 05/31/18 05/31/18 14:29 21:58 Troponin I < 0.02 < 0.02 NSR @ [address]-T changes Imaging - Results Chest X-ray: Report Reviewed (NAD) Cat Scan: Report Reviewed (No acute changes) Problem List - Problems (1) Chest pain Code(s): R07.9 - CHEST PAIN, UNSPECIFIED Qualifiers: Chest pain type: precordial pain Qualified Code(s): R07.2 - Precordial pain (2) Diabetic foot ulcer associated with diabetes mellitus due to underlying condition Code(s): E08.621 - DIABETES MELLITUS DUE TO UNDERLYING CONDITION W FOOT ULCER; L97.509 - NON-PRESSURE CHRONIC ULCER OTH PRT UNSP FOOT W UNSP SEVERITY Qualifiers: Diabetic foot ulcer location: toe Laterality: left (3) Diabetes mellitus Code(s): E11.9 - TYPE 2 DIABETES MELLITUS WITHOUT COMPLICATIONS Qualifiers: Diabetes mellitus type: type 2 (4) HTN (hypertension) Code(s): I10 - ESSENTIAL (PRIMARY) HYPERTENSION Qualifiers: Hypertension type: essential hypertension Qualified Code(s): I10 - Essential (primary) hypertension (5) PAD (peripheral artery disease) Code(s): I73.9 - PERIPHERAL VASCULAR DISEASE, UNSPECIFIED Assessment/Plan 1. Chest pain syndrome with need to r/o CAD given multiple CV risk factors 2. PAD s/p left foot toe amputations and HBO2 3. Hypertension 4. Type 2 DM 5. Hyperkalemia P:1. Ruled out for ND, check TSH, lipid panel, Ha1c 2. Echocardiogram to asses ventricular and valve fxn 3. Lexiscan Myoview r/o ischemia 4. Continue ASA 81 qd, carvedilol 12.5 bid, start RENE-I/ARB once hyperkalemia resolves 5. Wound care and HBO2 6. Thank you for consultative opportunity
--- NOTE | 2018-06-01 12:16 | EKG ---
Test Reason : Blood Pressure : / mmHG Vent. Rate : 074 BPM Atrial Rate : 074 BPM P-R Int : 128 ms QRS Dur : 066 ms QT Int : 400 ms P-R-T Axes : 009 012 040 degrees QTc Int : 444 ms NORMAL SINUS RHYTHM NORMAL ECG WHEN COMPARED WITH ECG OF 21-NOV-2017 10:15, NONSPECIFIC T WAVE ABNORMALITY HAS REPLACED INVERTED T WAVES IN INFERIOR LEADS Confirmed by BULL SANFORD, TAWANNA ([id number]) on 06/01/2018 12:15:49 PM Referred By: Confirmed By:TAWANNA GOTTLIEB MD
--- NOTE | 2018-06-01 12:45 | ECHO ---
Name: YAMIL LEWIS Exam:Adult Echocardiogram Study Date: 06/01/2018 08:54 AM Age: 57 yrs Reason For Study: Chest pain Height: 63 in Weight: 173 lb BSA: 1.8 m2 MMode/2D Measurements & Calculations IVSd: 1.0 cm Ao root diam: 2.0 cm LVIDd: 3.8 cm LA dimension: 3.3 cm LVIDs: 2.2 cm LVPWd: 0.87 cm LVPWs: 1.5 cm EDV(Teich): 63.5 ml ESV(Teich): 15.5 ml LVOT diam: 1.8 cm Doppler Measurements & Calculations MV E max aaron: 90.8 cm/sec Ao V2 max: 117.2 cm/sec MV A max aaron: 72.1 cm/sec Ao max P.5 mmHg MV E/A: 1.3 Ao V2 mean: 77.4 cm/sec MV dec time: 0.17 sec Ao mean P.8 mmHg Ao V2 VTI: 26.8 cm ABIDA(V,D): 1.7 cm2 LV V1 max P.4 mmHg PA V2 max: 97.9 cm/sec LV V1 max: 77.5 cm/sec PA max P.8 mmHg Med Peak E' Aaron: 5.6 cm/sec Med E/e': 16.2 Lat Peak E' Aaron: 8.8 cm/sec Lat E/e': 10.4 Procedure A complete two-dimensional transthoracic echocardiogram was performed (2D, M-mode, Doppler and color flow Doppler). Left Ventricle The left ventricular size, thickness and function are normal. The left ventricular ejection fraction is normal. Ejection Fraction = 55-60%. The left ventricular wall motion is normal. Right Ventricle The right ventricle is normal in size and function. Atria Normal left and right atrial size and function. Mitral Valve There is no mitral regurgitation noted. Tricuspid Valve There is trace tricuspid regurgitation. There was insufficient TR detected to calculate RV systolic p ressure. Aortic Valve No hemodynamically significant valvular aortic stenosis. No aortic regurgitation is present. Pulmonic Valve There is no pulmonic valvular regurgitation. Great Vessels The aortic root is normal size. Pericardium/Pleura There is no pericardial effusion. Interpretation Summary The left ventricular size, thickness and function are normal The right ventricle is normal in size and function. There is trace tricuspid regurgitation. MD Devagn West 06/01/2018 12:45 PM
[2018-06-01] MEDS ORDERED: INSULIN (NOVOLOG) ASPART 100 UNITS/ML 10ML VIAL SQ ONE (13:00)
--- NOTE | 2018-06-01 17:40 | PN ---
Progress Note, Physician - Current Medication List Current Medications: Active Medications Acetaminophen (Tylenol -) 650 mg PO Q6H PRN PRN Reason: FEVER Aspirin (Asa -) 81 mg PO DAILY [facility] Last Admin: 06/01/18 09:34 Dose: 81 mg Carvedilol (Coreg -) 12.5 mg PO BID [facility] Last Admin: 06/01/18 09:34 Dose: 12.5 mg Glipizide (Glucotrol -) 5 mg PO DAILY@0700 [facility] Last Admin: 06/01/18 06:31 Dose: 5 mg Heparin Sodium (Porcine) (Heparin -) 5,000 unit SQ BID [facility] Last Admin: 06/01/18 09:35 Dose: 5,000 unit Insulin Detemir (Levemir Vial) 22 units SQ HS [facility] Last Admin: 05/31/18 22:35 Dose: 22 units - Objective Vital Signs: Vital Signs Temperature 98.4 F 06/01/18 14:02 Pulse Rate 71 06/01/18 14:02 Respiratory Rate 14 06/01/18 14:02 Blood Pressure 108/57 L 06/01/18 14:02 O2 Sat by Pulse Oximetry (%) 100 06/01/18 10:00 Constitutional: Yes: No Distress HENT: Yes: Atraumatic Neck: Yes: Supple Cardiovascular: Yes: Regular Rate and Rhythm Respiratory: Yes: CTA Bilaterally Gastrointestinal: Yes: Normal Bowel Sounds Edema: No Labs: CBC, BMP 05/31/18 14:29 05/31/18 14:29 Problem List - Problems (1) Chest pain Assessment/Plan: fu cardiac profile tele monitoring cardiologyconsult Code(s): R07.9 - CHEST PAIN, UNSPECIFIED Qualifiers: Chest pain type: precordial pain Qualified Code(s): R07.2 - Precordial pain (2) IDDM (insulin dependent diabetes mellitus) Assessment/Plan: insulin bgms Code(s): E11.9 - TYPE 2 DIABETES MELLITUS WITHOUT COMPLICATIONS; 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
[2018-06-01] MEDS: INSULIN (LEVEMIR) 100 UNITS/ML UNITS SQ SCH (22:30)
[2018-06-02] MEDS: glipiZIDE 5 MG TABLET (FP) PO SCH (05:59)
[2018-06-02 07:49] LABS: ANION GAP 6 MMOL/L (8-16); BLOOD UREA NITROGEN 28 mg/dL (7-18); CALCIUM 9.3 mg/dL (8.5-10.1); CHLORIDE 102 mmol/L (98-107); CHOLESTEROL 234 mg/dL (50-200); CO2 28 mmol/L (21-32); CREATININE 0.8 mg/dL (0.55-1.3); GLUCOSE,RANDOM 190 mg/dL (74-106); HDL CHOLESTEROL 35 mg/dL (40-60); SODIUM 136 mmol/L (136-145); TRIGLYCERIDES 515 mg/dL (0-150)
[2018-06-02] MEDS ORDERED: REGADENOSON 0.4 MG/5 ML PRE-FILLED SYRINGE IVPUSH ONE ×2 (10:10→11:00)
[2018-06-02] MEDS: CARVEDILOL 12.5 MG TABLET (FP) PO SCH (12:08)
[2018-06-02] MEDS: ASPIRIN 81 MG CHEWABLE TABLETS PO SCH (12:08)
[2018-06-02] MEDS: HEPARIN NA (PORCINE) 5,000 UNITS/ML 1ML VIAL SQ SCH (12:08)
[2018-06-02 14:09] VITALS: BP 104/51; PULSE 69; TEMP 98
--- NOTE | 2018-06-02 15:01 | DS ---
Physical Examination Vital Signs: Vital Signs Temperature 98.0 F 06/02/18 14:08 Pulse Rate 69 06/02/18 14:08 Respiratory Rate 16 06/02/18 14:08 Blood Pressure 104/51 L 06/02/18 14:08 O2 Sat by Pulse Oximetry (%) 98 06/02/18 10:00 Constitutional: Yes: No Distress HENT: Yes: Atraumatic Neck: Yes: Supple Cardiovascular: Yes: Regular Rate and Rhythm Respiratory: Yes: CTA Bilaterally Gastrointestinal: Yes: Normal Bowel Sounds Extremities: Yes: WNL Neurological: Yes: Alert, Oriented Labs: CBC, BMP 05/31/18 14:29 06/02/18 05:30 Discharge Summary Reason For Visit: CHEST PAIN Current Active Problems Chest pain (Acute) Condition: Stable - Instructions - Home Medications Comprehensive Discharge Medication List: Ambulatory Orders Aspirin [ASA -] 81 mg PO DAILY 05/03/17 Glipizide 5 mg PO DAILY 05/03/17 Acetaminophen with Codeine [Tylenol with Codeine #3 Tablet] 1 each PO TID PRN Collagenase Clostridium Hist. [Santyl] 1 applic TP DAILY #90 oint...g. 12/02/17 Insulin Glargine,Hum.rec.anlog 22 units SQ HS 12/02/17 Insulin Glargine,Hum.rec.anlog [Basaglar Kwikpen U-100] 2 unit SQ HS 12/02/17 Coreg 12.5 mg PO BID 02/03/18 Valacyclovir HCl 1,000 mg PO BID 02/03/18 Sulfamethoxazole/Trimethoprim [Bactrim DS -] 1 tab PO BID 03/09/18 troponins negative stress test negative fu cardiology as out patient
== END 2018-06-02 16:06 | disposition home or self-care (01) ==
LOC: JER 13:26 → JERBED 17:21 → J4S 22:04
PROVIDERS: ADMIT Internal Medicine; ATTEND Internal Medicine
PROC: 3E0337Z Introduction of Electrolytic and Water Balance Substance into Peripheral Vein, Percutaneous Approach (ICD-10-PCS; principal; 2018-05-31)
PROC: 3E033GC Introduction of Other Therapeutic Substance into Peripheral Vein, Percutaneous Approach (ICD-10-PCS; 2018-05-31)
PROC: 3E013VG Introduction of Insulin into Subcutaneous Tissue, Percutaneous Approach (ICD-10-PCS; 2018-05-31)
PROC: 3E013GC Introduction of Other Therapeutic Substance into Subcutaneous Tissue, Percutaneous Approach (ICD-10-PCS; 2018-05-31)
DX: R07.2 Precordial pain (principal); E08.621 Diabetes mellitus due to underlying condition with foot ulcer; L97.509 Non-pressure chronic ulcer of other part of unspecified foot with unspecified severity; I10 Essential (primary) hypertension; E78.5 Hyperlipidemia, unspecified; I73.9 Peripheral vascular disease, unspecified; Z89.422 Acquired absence of other left toe(s); Z91.041 Radiographic dye allergy status; Z79.82 Long term (current) use of aspirin; Z79.84 Long term (current) use of oral hypoglycemic drugs; Z79.4 Long term (current) use of insulin
CPT/HCPCS: 36415; 70450-TC; 71045-TC-FY; 78452-TC; 80048; 80053; 80061; 81003; 82550; 82962; 83036; 83721; 84443; 84484; 85025; 93005; 93010; 93017; 93306-TC; 96361; 96372; 96374; 99285-25; A9502; G0378; J1644; J2785; J7030

== ENCOUNTER 2018-07-18 09:04 | Inpatient (IN) | payer OTHER ==
[2018-07-18 09:12] VITALS: BMI 30.4
[2018-07-18] MEDS ORDERED: morphine CARPU-JECT 4 MG/1 ML DISP.SYRIN IVPUSH ONE (09:52)
[2018-07-18] MEDS ORDERED: VANCOMYCIN 1,500 MG in DEXTROSE 5%-WATER - 250 ML IVPB ONE ×2 (09:52→13:00)
[2018-07-18] MEDS ORDERED: PIPERACILLIN/TAZOB 3.375 GM 3.375 GM in DEXTROSE 5%-WATER - 50 ML IVPB ONE (09:53)
--- NOTE | 2018-07-18 10:01 | PDOC ---
History of Present Illness - General Chief Complaint: Wound Stated Complaint: LF LEG WOUND Time Seen by Provider: 07/18/18 09:39 History Source: Patient Exam Limitations: No Limitations - History of Present Illness Initial Comments: 07/18/18 10:00 57 year old female with a significant past medical history of HTN, HLD, DM, PVD with Femoral artery DCP angioplasty, popliteal artery angioplasty, left toe amputations and hyperbarics presenting with worsening left foot wounds with malodor, purulence and pain x 3 weeks, associated with intermittent fevers and chills, Tmax yesterday per patient 106. intermittent twinges of cp and dizziness, none currently. has had stress testing and echo last in 2018, neg for ischemia and ruled out for ACS/ Denies fever, chills, chest pain, SOB, palpitation, weakness, N, V, D, abdominal pain, bladder and bowel problems, leg swelling, No new changes in medications. Allergies: iodine, contrast dye Past Medical History: as documented in EMR/HPI PSH: PAD, toe amputations. Meds: as documented in EMR PMD: Dr Lloyd --- Review of systems Constitutional: +fevers or chills. HEENT: no headache; +dizziness CVS: no syncope. +cp Resp: no sob. No cough. Gastrointestinal: no abdominal pain, nausea or vomiting. Genitourinary: no urinary sx MUSCULOSKELETAL: No joint pain and swelling. No neck or back pain. SKIN: no redness or skin changes, no discharge, no rash. +ulcerative wounds, + pain. Hematologic: no easy bruising/bleeding. NEUROLOGIC: No headache, dizziness, LOC or altered mental status. No weakness, numbness or tingling. Allergic/Immunologic: no allergies All other systems reviewed and negative, or as documented in HPI. Physical exam: General: Well appearing, awake and alert, NAD. HEENT: NCAT, PERRL, EOMI, clear conjunctiva, anicteric, moist mucus membranes, clear oropharynx, no oral lesions.. Neck: neck supple, FROM Resp: CTAB, normal and even respirations, no respiratory distress CVS: RRR, no murmurs, 2+ peripheral pulses throughout, no peripheral edema Abdomen: soft, NTND Back: nontender, normal inspection and ROM MSK: no edema, LOVE x4, ROM intact. No clubbing or cyanosis. normal bulk and tone. Neuro: alert, no focal neuro deficits. Skin: dry, warm extremities. 1+ faint DP pulses bilaterally. Old healed scar along medial LLE. s/p amputations of left 5th toe, 1st-2nd toes Left forefoot with large dry gangrenous blackened ulcer. Left calcaneus with large purulent ulcer extending to muscle/bone. both ulcerative wounds with strong malodor. 07/18/18 10:09 07/18/18 10:10 07/18/18 10:49 07/18/18 10:51 07/18/18 10:51 07/18/18 10:52 07/18/18 12:41 Past History - Past Medical History Allergies/Adverse Reactions: Allergies Allergy/AdvReac Type Severity Reaction Status Date / Time Iodinated Contrast- Oral and Allergy Verified 05/31/18 14:06 IV Dye Home Medications: Ambulatory Orders Aspirin [ASA -] 81 mg PO DAILY 05/03/17 Glipizide 5 mg PO DAILY 05/03/17 Insulin Glargine,Hum.rec.anlog 22 units SQ HS 12/02/17 Insulin Glargine,Hum.rec.anlog [Basaglar Kwikpen U-100] 2 unit SQ DAILY Vit C/Ascorbate Calcium,Sodium 500 mg PO BID 06/03/18 Collagenase Clostridium Hist. [Santyl] 1 applic TP DAILY #90 oint...g. 06/12/18 Carvedilol [Coreg -] 1 tab PO DAILY 07/03/18 Anemia: Yes COPD: No CHF: No Diabetes: Yes HTN: Yes Hypercholesterolemia: Yes - Surgical History Orthopedic Surgery: Yes (amp left great toe,2nd toe, 5th toe) - Immunization History Immunization Up to Date: Yes - Suicide/Smoking/Psychosocial Hx Smoking History: Never smoked Have you smoked in the past 12 months: No If you are a former smoker, when did you quit?: 10-15 years ago Information on smoking cessation initiated: No Hx Alcohol Use: No Drug/Substance Use Hx: No Substance Use Type: None Hx Substance Use Treatment: No *Physical Exam - Vital Signs Last Vital Signs Temp Pulse Resp BP Pulse Ox 97.6 F 72 16 127/54 L 100 07/18/18 09:09 07/18/18 09:09 07/18/18 09:09 07/18/18 09:09 07/18/18 09:09 Heart Score/ECG Review #1 ECG reviewed & interpreted by me at: 10:10 General ECG Interpretation: Sinus Rhythm, Normal Rate, Normal Intervals Compared to previous ECG there are: No significant change 07/18/18 10:48 EKG normal sinus rhythm at 69 bpm, no interval abnormalities, narrow QRS, ST and T wave segments and morphology normal. Nonspecific T wave abnormalities in inferior leads 07/18/18 10:48 ED Treatment Course - LABORATORY CBC & Chemistry Diagram: 07/18/18 10:35 07/18/18 10:35 - RADIOLOGY Radiology Studies Ordered: Category Date Time Status CHEST PA & LAT [RAD] Stat Radiology 07/18/18 09:55 Ordered FOOT-LEFT [RAD] Stat Radiology 07/18/18 09:55 Ordered Medical Decision Making - Medical Decision Making 07/18/18 10:08 See HPI for details. Prior notes reviewed, including admissions, discharges and consultations. Vital signs reviewed, wnl. no fever here DDX osteomyelitis, cellulitis, diabetic ulcer, gangrene, necrosis. bacteremia. laboratory results and imaging reviewed, basic labs and lytes wnl, notable for baseline stable anemia, mild leukocytosis. esr/crp elevated c/w infection vs inflammation Cardiac panel_neg trop EKG normal sinus rhythm, no interval abnormalities, narrow QRS, ST and T wave segments and morphology normal. Nonspecific T wave abnormalities foot xr of left foot with bony erosions and s/p amputation 1-2-5th digits, soft tissue ulcer seen adjacent to calcaneus ED course -interventions: IV abx vancomycin and zosyn given comorbidities and severe gangrenous and ulcerative wounds, acute on chronic. - consults and recommendations: wound care, Dr Jones - planned for angiogram and management of severely worsening ulcerative wounds on left foot. admit to hospitalist for medical management, clearance and operative planning admit to dr harris, s/o to Dr Nichols 07/18/18 13:22 *DC/Admit/Observation/Transfer Diagnosis at time of Disposition: Ulcer of foot with necrosis of muscle, Gangrene - Discharge Dispostion Condition at time of disposition: Stable Decision to Admit order: Yes Decision to Admit order Date/Time: 07/18/18 10:02 Decision to Admit Order Category Date Time Status Decision to Admit to Hospital Routine Admission 07/18/18 10:01 Ordered - Referrals Referrals: Yahir Lloyd PA [Primary Care Provider] - - Patient Instructions - Post Discharge Activity
[2018-07-18] MEDS ORDERED: PIPERACILLIN/TAZOB 3.375 GM 3.375 GM/50 ML BAG IVPB ONE (10:42)
[2018-07-18] MEDS ORDERED: morphine SULFATE 4 MG/ML VIAL ONE (10:42)
--- NOTE | 2018-07-18 12:02 | EKG ---
Test Reason : Blood Pressure : / mmHG Vent. Rate : 069 BPM Atrial Rate : 069 BPM P-R Int : 130 ms QRS Dur : 078 ms QT Int : 412 ms P-R-T Axes : -18 015 017 degrees QTc Int : 441 ms NORMAL SINUS RHYTHM NORMAL ECG WHEN COMPARED WITH ECG OF 31-MAY-2018 14:53, NO SIGNIFICANT CHANGE WAS FOUND Confirmed by Gildardo Gamboa MD ([id number]) on 07/18/2018 12:02:25 PM Referred By: Confirmed By:Gildardo Gamboa MD
[2018-07-18 12:19] LABS: BASO % 0.5 % (0-2.0); EOS % 2.1 % (0-4.5); HEMOGLOBIN 8.1 GM/dL (10.7-15.3); LYMPH % 15.9 % (8-40); MCH 28.7 pg (25.7-33.7); MCHC 32.5 g/dl (32.0-36.0); MEAN CELL VOLUME 88.4 fl (80-96); MEAN PLT VOLUME 8.4 fl (7.5-11.1); NEUT % 75.5 % (42.8-82.8); PLATELET COUNT 318 K/MM3 (134-434); RBC 2.83 M/mm3 (3.60-5.2); RDW 14.5 % (11.6-15.6); WHITE BLOOD COUNT 10.5 K/mm3 (4.0-10.0)
[2018-07-18 12:27] LABS: INR 1.17 (0.83-1.09); PROTHROMBIN TIME (PATIENT) 13.8 SEC (9.7-13.0)
[2018-07-18 12:33] LABS: BILIRUBIN,TOTAL 0.4 mg/dL (0.2-1); CALCIUM 8.7 mg/dL (8.5-10.1); POTASSIUM 4.1 mmol/L (3.5-5.1); TOT PROT 7.8 g/dl (6.4-8.2)
[2018-07-18] MEDS ORDERED: VANCOMYCIN 1,500 MG in DEXTROSE 5%-WATER - 500 ML IVPB ONE (13:00)
[2018-07-18 13:01] LABS: ERYTHROCYTE SEDIMENTATION RATE > 140 mm/hr (0-30)
--- NOTE | 2018-07-18 13:56 | HP ---
CHIEF COMPLAINT: gangrenous L foot PCP: Dr Lloyd HISTORY OF PRESENT ILLNESS: Patient is a 57 yo F with a PMHx of HTN, HLD, Uncontrolled DM, PVD with Femoral artery DCP angioplasty, popliteal artery angioplasty, left toe amputations, hyperbarics, hx of MRSA, was sent to ED after her wound care visit yesterday at [facility] because of infected L foot wounds and gangrene. She said she has been developing worsening L Foot wounds and gangrene over the past year. She says the wounds have been draining, foul smelling, and painful in the past 3 weeks. She also says she developed a Fever of 106 yesterday with chills. Patient currently denies pain, chest pain, sob, nausea, vomiting, fevers, chills, sob, urinary changes, bowel changes. ER course was notable for: (1) Vanc/Zosyn Recent Travel: denies PAST MEDICAL HISTORY: per HPI Social History: Smoking: former smoker. quit 20 years ago Alcohol: denies Drugs: denies Family History: father DM Allergies Iodinated Contrast- Oral and IV Dye Allergy (Verified 05/31/18 14:06) HOME MEDICATIONS: Home Medications Medication Instructions Recorded Aspirin [ASA -] 81 mg PO DAILY 05/03/17 Glipizide 5 mg PO DAILY 05/03/17 Insulin Glargine,Hum.rec.anlog 22 units SQ HS 12/02/17 Insulin Glargine,Hum.rec.anlog 2 unit SQ DAILY 12/02/17 [Basaglar Kwikpen U-100] Vit C/Ascorbate Calcium,Sodium 500 mg PO BID 06/03/18 Collagenase Clostridium Hist. 1 applic TP DAILY #90 oint...g. 06/12/18 [Santyl] Carvedilol [Coreg -] 1 tab PO DAILY 07/03/18 REVIEW OF SYSTEMS CONSTITUTIONAL: fevers, chills Absent: diaphoresis, generalized weakness, malaise, loss of appetite, weight change HEENT: Absent: rhinorrhea, nasal congestion, throat pain, throat swelling, difficulty swallowing, mouth swelling, ear pain, eye pain, visual changes CARDIOVASCULAR: Absent: chest pain, syncope, palpitations, irregular heart rate, lightheadedness , peripheral edema RESPIRATORY: Absent: cough, shortness of breath, dyspnea with exertion, orthopnea, wheezing, stridor, hemoptysis GASTROINTESTINAL: Absent: abdominal pain, abdominal distension, nausea, vomiting, diarrhea, constipation, melena, hematochezia GENITOURINARY: Absent: dysuria, frequency, urgency, hesitancy, hematuria, flank pain, genital pain MUSCULOSKELETAL: Absent: myalgia, arthralgia, joint swelling, back pain, neck pain SKIN: Absent: rash, itching, pallor HEMATOLOGIC/IMMUNOLOGIC: Absent: easy bleeding, easy bruising, lymphadenopathy, frequent infections ENDOCRINE: Absent: unexplained weight gain, unexplained weight loss, heat intolerance, cold intolerance NEUROLOGIC: Absent: headache, focal weakness or paresthesias, dizziness, unsteady gait, seizure, mental status changes, bladder or bowel incontinence PSYCHIATRIC: Absent: anxiety, depression, suicidal or homicidal ideation, hallucinations. PHYSICAL EXAMINATION Vital Signs - 24 hr 07/18/18 09:09 Temperature 97.6 F Pulse Rate 72 Respiratory 16 Rate Blood Pressure 127/54 L O2 Sat by Pulse 100 Oximetry (%) GENERAL: Awake, alert, and fully oriented, in no acute distress. HEAD: Normal with no signs of trauma. EYES: Pupils equal, round and reactive to light, extraocular movements intact, sclera anicteric, conjunctiva clear. EARS, NOSE, THROAT:oropharynx clear without exudates. Moist mucous membranes. NECK: supple without lymphadenopathy, JVD, or masses. LUNGS: Breath sounds equal, clear to auscultation bilaterally. No wheezes, and no crackles. HEART: Regular rate and rhythm, normal S1 and S2 without murmur, rub or gallop. ABDOMEN: Soft, nontender, not distended, normoactive bowel sounds, no guarding, no rebound, no masses. LOWER EXTREMITIES: 1+ dp pulses. s/p amputation of L 1st, 2nd, 5th toes. L forefoot w/gangrenous ulcer. L calcaneus ulcer, foul smelling, with purulence. NEUROLOGICAL: Cranial nerves II-XII intact. Normal speech. Normal gait. Laboratory Results - last 24 hr 07/18/18 07/18/18 07/18/18 10:35 10:35 10:35 WBC 10.5 H RBC 2.83 L Hgb 8.1 L Hct 25.0 L D MCV 88.4 MCH 28.7 MCHC 32.5 RDW 14.5 Plt Count 318 D MPV 8.4 Absolute Neuts (auto) 7.9 Neutrophils % 75.5 Lymphocytes % 15.9 Monocytes % 6.0 Eosinophils % 2.1 Basophils % 0.5 Nucleated RBC % 0 ESR > 140 H PT with INR INR Sodium 135 L Potassium 4.1 Chloride 102 Carbon Dioxide 25 Anion Gap 7 L BUN 26 H Creatinine 1.0 Est GFR (CKD-EPI)AfAm 72.93 Est GFR (CKD-EPI)NonAf 62.93 Random Glucose 247 H Calcium 8.7 Total Bilirubin 0.4 AST 17 ALT 21 Alkaline Phosphatase 113 Troponin I C-Reactive Protein 12.4 H Total Protein 7.8 Albumin 3.0 L Blood Type O POSITIVE Antibody Screen Negative 07/18/18 07/18/18 10:35 10:35 WBC RBC Hgb Hct MCV MCH MCHC RDW Plt Count MPV Absolute Neuts (auto) Neutrophils % Lymphocytes % Monocytes % Eosinophils % Basophils % Nucleated RBC % ESR PT with INR 13.80 H INR 1.17 H Sodium Potassium Chloride Carbon Dioxide Anion Gap BUN Creatinine Est GFR (CKD-EPI)AfAm Est GFR (CKD-EPI)NonAf Random Glucose Calcium Total Bilirubin AST ALT Alkaline Phosphatase Troponin I < 0.02 C-Reactive Protein Total Protein Albumin Blood Type Antibody Screen ASSESSMENT/PLAN: 57 yo F with a PMHx of HTN, HLD, Uncontrolled DM, PVD with Femoral artery DCP angioplasty, popliteal artery angioplasty, left toe amputations, hyperbarics, presented because of infected L foot wounds and gangrene. #L Foot Gangrene/Infected Ulcer -ESR, CRP elevated -Patient afebrile, not septic -Vanc/Zosyn given in the ED -FU L Foot Xray -Cont. IV Abx -ID consulted: Dr. Gordon -Vascular Consulted: Dr. Jones -discussed case with Dr. Jones, patient scheduled for Angio on -Fu wound cultures, bcx #Uncontrolled DM -hold Home meds -BGMs -SSI -Hgb a1c #HTN -cont. Coreg 6.25mg BID #Normocytic Anemia -hgb 8.1 -likely baseline -iron studies #FEN -No iv fluids -monitor lytes -diabetic diet #dvt ppx -hep sq Visit type - Emergency Visit Emergency Visit: Yes ED Registration Date: 07/18/18 Care time: The patient presented to the Emergency Department on the above date and was hospitalized for further evaluation of their emergent condition. - New Patient This patient is new to me today: Yes Date on this admission: 07/22/18 - Critical Care Critical Care patient: No
[2018-07-18] MEDS ORDERED: oxyCODONE HCL 5 MG TABLET PO ONE (14:23)
[2018-07-18] MEDS ORDERED: oxyCODONE HCL 5 MG TABLET ONE (14:41)
--- NOTE | 2018-07-18 16:44 | PN ---
Progress Note (short form) - Note Progress Note: ID CONSULT DICTATED NECROTIC, INFECTED L FOOT DM PVD HX MRSA AWAIT C/S VASC EVAL EMPIRIC VANCOMYCIN/ ZOSYN
[2018-07-18] MEDS ORDERED: VANCOMYCIN 1 GRAM (PRE-DOCKED) 1,000 MG/250 ML BAG IVPB SCH (16:45)
[2018-07-18] MEDS: INSULIN SLIDING SCALE (NOVOLOG) 1 VIAL SQ SCH ×2 (17:33→22:15)
--- NOTE | 2018-07-18 17:41 | PN ---
Teaching Attending Note Name of Resident: Antoine Nichols ATTENDING PHYSICIAN STATEMENT I saw and evaluated the patient. I reviewed the resident's note and discussed the case with the resident. I agree with the resident's findings and plan as documented. SUBJECTIVE: Fevers, chills, rigors. OBJECTIVE: Febrile - T 102, Hemodynamically Stable Last Vital Signs Temp Pulse Resp BP Pulse Ox 98.0 F 78 18 125/54 L 98 07/18/18 10:01 07/18/18 14:22 07/18/18 14:22 07/18/18 14:22 07/18/18 14:22 HEENT - Atraumatic, Normocephalic Heart - S1, S2, RRR Lungs - Clear to auscultation Abdomen - soft, non-tender. Bowel Sounds normal. Extremities - L foot amputations - 1st/2nd/5th toes, dorsal necrotic ulcer, calcaneal purulent and malodorous ulcer Laboratory Results - last 24 hr 07/18/18 07/18/18 07/18/18 10:35 10:35 10:35 WBC 10.5 H RBC 2.83 L Hgb 8.1 L Hct 25.0 L D MCV 88.4 MCH 28.7 MCHC 32.5 RDW 14.5 Plt Count 318 D MPV 8.4 Absolute Neuts (auto) 7.9 Neutrophils % 75.5 Lymphocytes % 15.9 Monocytes % 6.0 Eosinophils % 2.1 Basophils % 0.5 Nucleated RBC % 0 ESR > 140 H PT with INR INR Sodium 135 L Potassium 4.1 Chloride 102 Carbon Dioxide 25 Anion Gap 7 L BUN 26 H Creatinine 1.0 Est GFR (CKD-EPI)AfAm 72.93 Est GFR (CKD-EPI)NonAf 62.93 POC Glucometer Random Glucose 247 H Calcium 8.7 Total Bilirubin 0.4 AST 17 ALT 21 Alkaline Phosphatase 113 Troponin I C-Reactive Protein 12.4 H Total Protein 7.8 Albumin 3.0 L Blood Type O POSITIVE Antibody Screen Negative 07/18/18 07/18/18 07/18/18 10:35 10:35 16:18 WBC RBC Hgb Hct MCV MCH MCHC RDW Plt Count MPV Absolute Neuts (auto) Neutrophils % Lymphocytes % Monocytes % Eosinophils % Basophils % Nucleated RBC % ESR PT with INR 13.80 H INR 1.17 H Sodium Potassium Chloride Carbon Dioxide Anion Gap BUN Creatinine Est GFR (CKD-EPI)AfAm Est GFR (CKD-EPI)NonAf POC Glucometer 354 Random Glucose Calcium Total Bilirubin AST ALT Alkaline Phosphatase Troponin I < 0.02 C-Reactive Protein Total Protein Albumin Blood Type Antibody Screen Current Medications Generic Name Dose Route Start Last Admin Trade Name Tellyq PRN Reason Stop Dose Admin Aspirin 81 mg 07/19/18 10:00 Asa - PO DAILY [facility] Carvedilol 6.25 mg 07/18/18 22:00 Coreg - PO BID SE[facility] Collagenase 1 applic 07/19/18 10:00 Santyl - TP DAILY [facility] Protocol Heparin Sodium (Porcine) 5,000 unit 07/18/18 22:00 Heparin - SQ TID SEVERIAN[facility] Piperacillin Sod/Tazobactam 50 mls @ 100 mls/hr 07/18/18 18:00 Sod 3.375 gm/ Dextrose IVPB Q8H-IV [facility] Protocol Vancomycin HCl 1,000 mg in 250 mls @ 166.667 mls/hr 07/19/18 02:00 Vancomycin (Pre-Docked) IVPB Q12H [facility] Protocol Insulin Aspart 1 vial 07/18/18 16:30 Novolog Vial Sliding Scale - SQ ACHS [facility] Protocol ASSESSMENT AND PLAN: 57 year old female with history of HTN, HLD, DM 2, PVD, s/p Femoral artery angioplasty, s/p popliteal artery angioplasty, s/p left foot toe amputations, referred from wound care for worsening/infected foot ulcer. 1. L foot Infected Ulcer Febrile, WBC borderline Scheduled for Angio on by Dr. Jones, Vascular Surgery ID consulted for Abx therapy - on Zosyn/Vanco empirically Wound Cx to be sent MRI to exclude Osteomyelitis. 2. DM 2 Oral anti-hyperglycemics held Maintain on Novolog sliding scale insulin A1C requested. 3. HTN - Continue Coreg 4. Normocytic Anemia - H/H 8.1/25, MCV 88.4. No evidence of blood loss Will send work up including Iron/Ferritin/B12/Folate. DVT Px - Heparin SQ
[2018-07-18] MEDS: ACETAMINOPHEN 325 MG TABLET (FP) PO PRN ×2 (18:08→22:25)
--- NOTE | 2018-07-18 18:29 | CONS ---
DATE OF CONSULTATION: 07/18/2018 The patient is a 57-year-old diabetic female with a history of diabetic foot infections and peripheral vascular disease, evaluated for infected left foot. She reports worsening ulceration of the left heel and left plantar surface over the past 2 to 3 weeks. [facility] and was noted to have worsening necrosis of the ulcers associated with malodorous drainage. She reports high-grade fever at home and chills. She is now admitted for further evaluation. She has a long history of diabetic foot infection and peripheral vascular disease. She is status post angioplasties and toe amputations. Previous wound cultures have been positive for MRSA and Pseudomonas. Past medical history positive for diabetes mellitus, peripheral vascular disease, hypertension, and hyperlipidemia. PAST SURGICAL HISTORY: Status post vascular bypass and toe amputations. Allergies to IODINE. LABORATORY DATA: White count 10.5, hematocrit 25.0, platelets 318. BUN 26, creatinine 1.0. ESR greater than 140. C-reactive protein 12.4. Cultures are pending. Previous culture is positive for MRSA and Pseudomonas. PHYSICAL EXAMINATION: General: The patient is awake and alert. Vital Signs: Temperature 98.0. Blood pressure 125/54. Pulse 78, regular. Respirations 18 per minute. Eyes: Sclerae anicteric. Heart Sounds: S1, S2. Lungs: Clear. Abdomen: Soft, nontender. Extremities: On examination of the left foot, a healed surgical scar is present, corresponding to the vascular bypass. There is swelling of the left foot with necrotic ulcers present on the calcaneus as well as the mid plantar aspect of the foot. It is foul-smelling. There is erythema involving the foot extending to the distal left lower extremity. IMPRESSION: 1. Necrotic infected left diabetic foot ulcers. 2. Diabetes mellitus. 3. Peripheral vascular disease. 4. History of methicillin-resistant Staphylococcus aureus and Pseudomonas. Await cultures. Vascular evaluation. Empiric antibiotic coverage with vancomycin and Zosyn. Local wound care. Thank you for the kind referral. SCOUT FRANCO M.D. [id number]
[2018-07-18] MEDS ORDERED: PIPERACILLIN/TAZOBACTAM 3.375 GM VIAL IVPB ONE (18:44)
[2018-07-18] MEDS: PIPERACILLIN/TAZOB 3.375 GM 3.375 GM in DEXTROSE 5%-WATER - 50 ML IVPB SCH (18:44)
[2018-07-18] MEDS ORDERED: DEXTROSE 5%-WATER - 50 ML IVPB ONE (18:44)
[2018-07-18] MEDS ORDERED: PIPERACILLIN/TAZOB 2.25 GM 2.25 GM in DEXTROSE 5%-WATER - 50 ML IVPB ONE (22:00)
[2018-07-18] MEDS: CARVEDILOL 6.25 MG TABLET (FP) PO SCH (22:13)
[2018-07-18] MEDS: HEPARIN NA (PORCINE) 5,000 UNITS/ML 1ML VIAL SQ SCH (22:13)
[2018-07-19] MEDS ORDERED: DEXTROSE 5%-WATER - 50 ML IVPB ONE ×4 (01:15→17:27)
[2018-07-19] MEDS ORDERED: PIPERACILLIN/TAZOBACTAM 3.375 GM VIAL IVPB ONE ×4 (01:15→17:27)
[2018-07-19] MEDS: PIPERACILLIN/TAZOB 3.375 GM 3.375 GM in DEXTROSE 5%-WATER - 50 ML IVPB SCH ×3 (01:18→18:13)
[2018-07-19] MEDS: VANCOMYCIN 1 GRAM (PRE-DOCKED) 1,000 MG/250 ML BAG IVPB SCH ×2 (02:19→15:59)
[2018-07-19] MEDS: INSULIN SLIDING SCALE (NOVOLOG) 1 VIAL SQ SCH ×5 (06:10→22:10)
[2018-07-19] MEDS: HEPARIN NA (PORCINE) 5,000 UNITS/ML 1ML VIAL SQ SCH ×3 (06:10→22:10)
[2018-07-19] MEDS ORDERED: INSULIN (NOVOLOG) ASPART 100 UNITS/ML 10ML VIAL ONE ×2 (06:19→16:02)
[2018-07-19 08:27] LABS: BASO % 0.4 % (0-2.0); EOS % 1.3 % (0-4.5); HEMATOCRIT 21.5 % (32.4-45.2); LYMPH % 12.5 % (8-40); MCH 28.2 pg (25.7-33.7); MCHC 32.2 g/dl (32.0-36.0); MEAN CELL VOLUME 87.7 fl (80-96); MEAN PLT VOLUME 8.5 fl (7.5-11.1); MONO % 4.7 % (3.8-10.2); NEUT % 81.1 % (42.8-82.8); PLATELET COUNT 262 K/MM3 (134-434); RBC 2.45 M/mm3 (3.60-5.2); RDW 15.1 % (11.6-15.6); WHITE BLOOD COUNT 9.4 K/mm3 (4.0-10.0)
--- NOTE | 2018-07-19 08:41 | SPA.PREOP ---
- PRE-OP NOTE Dx: Left foot wound, PAD Planned Procedure: Left leg angiogram Surgeon: Gen Jones DO Last Vital Signs Temp Pulse Resp BP Pulse Ox 97.9 F 72 20 108/54 L 96 07/19/18 06:00 07/19/18 06:00 07/19/18 06:00 07/19/18 06:00 07/18/18 21:00 Lab Results WBC 10.5 K/mm3 (4.0-10.0) H 07/18/18 10:35 RBC 2.83 M/mm3 (3.60-5.2) L 07/18/18 10:35 Hgb 8.1 GM/dL (10.7-15.3) L 07/18/18 10:35 Hct 25.0 % (32.4-45.2) L D 07/18/18 10:35 MCV 88.4 fl (80-96) 07/18/18 10:35 MCHC 32.5 g/dl (32.0-36.0) 07/18/18 10:35 RDW 14.5 % (11.6-15.6) 07/18/18 10:35 Plt Count 318 K/MM3 (134-434) D 07/18/18 10:35 Sodium 135 mmol/L (136-145) L 07/18/18 10:35 Potassium 4.1 mmol/L (3.5-5.1) 07/18/18 10:35 Chloride 102 mmol/L (98-107) 07/18/18 10:35 Carbon Dioxide 25 mmol/L (21-32) 07/18/18 10:35 Anion Gap 7 MMOL/L (8-16) L 07/18/18 10:35 BUN 26 mg/dL (7-18) H 07/18/18 10:35 Creatinine 1.0 mg/dL (0.55-1.3) 07/18/18 10:35 Random Glucose 247 mg/dL (74-106) H 07/18/18 10:35 Calcium 8.7 mg/dL (8.5-10.1) 07/18/18 10:35 Blood Type O POSITIVE 07/18/18 10:35 Antibody Screen Negative 07/18/18 10:35 INR 1.17 (0.83-1.09) H 07/18/18 10:35 - ASSESSMENT/PLAN 1. Make NPO after midnight except po meds 2. GI/DVT PPX 3. Medical optimization / clearance 4. Consent to be obtained by surgeon after risks, benefits and alternatives discussed with patient and or Health Care Proxy.
[2018-07-19 08:42] LABS: INR 1.16 (0.83-1.09); PROTHROMBIN TIME (PATIENT) 13.7 SEC (9.7-13.0)
[2018-07-19 08:49] LABS: HEMOGLOBIN 6.9 GM/dL (10.7-15.3)
[2018-07-19 09:20] LABS: ALBUMIN 2.4 g/dl (3.4-5.0); BILIRUBIN,TOTAL 0.5 mg/dL (0.2-1); CALCIUM 8.3 mg/dL (8.5-10.1); CREATININE 1.2 mg/dL (0.55-1.3); MAGNESIUM 2.1 mg/dL (1.8-2.4); PHOSPHOROUS 3.4 mg/dL (2.5-4.9); POTASSIUM 4.4 mmol/L (3.5-5.1); TOT PROT 6.4 g/dl (6.4-8.2)
[2018-07-19] MEDS ORDERED: CARVEDILOL 6.25 MG TABLET (FP) PO SCH (10:00)
[2018-07-19] MEDS: CARVEDILOL 6.25 MG TABLET (FP) PO SCH ×2 (10:03→22:09)
[2018-07-19] MEDS: ASPIRIN 81 MG CHEWABLE TABLETS PO SCH (10:12)
[2018-07-19] MEDS: COLLAGENASE CLOSTRIDIUM HIST. 30 GRAMS TUBE TP SCH (11:39)
[2018-07-19] MEDS: ACETAMINOPHEN 325 MG TABLET (FP) PO PRN ×2 (11:44→19:23)
--- NOTE | 2018-07-19 13:02 | PN ---
Physical Exam: SUBJECTIVE: Patient seen this morning and without complaint. reports her foot is starting to hurt a little. OBJECTIVE: Vital Signs Temperature 98.2 F 07/19/18 10:00 Pulse Rate 71 07/19/18 10:00 Respiratory Rate 20 07/19/18 10:00 Blood Pressure 100/48 L 07/19/18 10:00 O2 Sat by Pulse Oximetry (%) 95 07/19/18 09:00 GENERAL: The patient is awake, alert, and fully oriented, in no acute distress. HEAD: Normal with no signs of trauma. NECK: Trachea midline, full range of motion, supple. LUNGS: Breath sounds equal, clear to auscultation bilaterally, HEART: Regular rate and rhythm, S1, S2 without murmur, rub or gallop. ABDOMEN: Soft, nontender, nondistended, normoactive bowel sounds, LOWER EXTREMITIES: 1+ dp pulses. s/p amputation of L 1st, 2nd, 5th toes. L forefoot w/gangrenous ulcer. L calcaneus ulcer, foul smelling, with purulence. CBCD WBC 9.4 K/mm3 (4.0-10.0) 07/19/18 07:40 RBC 2.45 M/mm3 (3.60-5.2) L 07/19/18 07:40 Hgb 6.9 GM/dL (10.7-15.3) L* 07/19/18 07:40 Hct 21.5 % (32.4-45.2) L 07/19/18 07:40 MCV 87.7 fl (80-96) 07/19/18 07:40 MCHC 32.2 g/dl (32.0-36.0) 07/19/18 07:40 RDW 15.1 % (11.6-15.6) 07/19/18 07:40 Plt Count 262 K/MM3 (134-434) 07/19/18 07:40 MPV 8.5 fl (7.5-11.1) 07/19/18 07:40 CMP Sodium 130 mmol/L (136-145) L 07/19/18 07:40 Potassium 4.4 mmol/L (3.5-5.1) 07/19/18 07:40 Chloride 97 mmol/L (98-107) L 07/19/18 07:40 Carbon Dioxide 27 mmol/L (21-32) 07/19/18 07:40 Anion Gap 5 MMOL/L (8-16) L 07/19/18 07:40 BUN 27 mg/dL (7-18) H 07/19/18 07:40 Creatinine 1.2 mg/dL (0.55-1.3) 07/19/18 07:40 Calcium 8.3 mg/dL (8.5-10.1) L 07/19/18 07:40 Total Bilirubin 0.5 mg/dL (0.2-1) 07/19/18 07:40 AST 17 U/L (15-37) 07/19/18 07:40 ALT 19 U/L (13-61) 07/19/18 07:40 Alkaline Phosphatase 99 U/L (45-117) 07/19/18 07:40 Total Protein 6.4 g/dl (6.4-8.2) 07/19/18 07:40 Albumin 2.4 g/dl (3.4-5.0) L 07/19/18 07:40 Active Medications Acetaminophen (Tylenol -) 650 mg PO Q4H PRN PRN Reason: PAIN LEVEL 6-10 Last Admin: 07/19/18 11:44 Dose: 650 mg Aspirin (Asa -) 81 mg PO DAILY [facility] Last Admin: 07/19/18 10:12 Dose: 81 mg Carvedilol (Coreg -) 6.25 mg PO BID [facility] Last Admin: 07/19/18 10:03 Dose: Not Given Collagenase (Santyl -) 1 applic TP DAILY [facility]; Protocol Last Admin: 07/19/18 11:39 Dose: 1 applic Heparin Sodium (Porcine) (Heparin -) 5,000 unit SQ TID [facility] Last Admin: 07/19/18 06:10 Dose: 5,000 unit Piperacillin Sod/Tazobactam (Sod 3.375 gm/ Dextrose) 50 mls @ 100 mls/hr IVPB Q8H-IV [facility]; Protocol Last Admin: 07/19/18 10:12 Dose: 100 mls/hr Vancomycin HCl (Vancomycin (Pre-Docked)) 1,000 mg in 250 mls @ 166.667 mls/hr IVPB Q12H [facility]; Protocol Last Admin: 07/19/18 02:19 Dose: 166.667 mls/hr Insulin Aspart (Novolog Vial Sliding Scale -) 1 vial SQ [facility]; Protocol Last Admin: 07/19/18 12:04 Dose: 8 units ASSESSMENT/PLAN: Patient is a 57 y/o female with a history of HTN, HLD, DM, PVD, femoral artery angioplasty, and L toe amputations who presents for wet gangrene. #Wet gangrene of left foot - patient seen by Dr. Jones - patient will undergo angioplasty tomorrow - f/u MRI to exclude osteo - wound cx growing multiple organisms - On Zosyn and Vancomycin ( day 2), hx of MRSA #anemia - chronic anemia at base line, below 7 today - one unit of blood, repeat CBC @ 6 - normal transfusion guidelines, please give if below 7 - stool for occult blood - iron studies pending #HTN - continue carvedilol 12.5 BID - continue ASA 81 mg #DM - SS - A1C 10.6 - patient poorly controlled as an outpatient #DVT ppx - heparin TID FEN - NPO after midnight - Na corrected to 134 Dispo: monitor on med-surg, f/u with vascular for management of foot Visit type - Emergency Visit Emergency Visit: No - New Patient This patient is new to me today: Yes Date on this admission: 07/19/18 - Critical Care Critical Care patient: No
--- NOTE | 2018-07-19 14:48 | PN ---
Progress Note (short form) - Note Progress Note: Surgery Well known patient followed by Dr Jones, seen yesterday in the wound care clinic , presents with reduced flow in left LE (S/P bypass). Vital Signs Temp 98.4 F 07/19/18 14:00 Pulse 72 07/19/18 14:00 Resp 21 H 07/19/18 14:00 BP 114/57 L 07/19/18 14:00 Pulse Ox 95 07/19/18 09:00 Intake & Output 07/18/18 07/19/18 07/19/18 23:59 11:59 23:59 Intake Total 800 670 350 Output Total 400 Balance 400 670 350 Intake: IV 20 saline lock 20 IVPB 350 Oral 800 300 350 Output: Urine 400 Void 400 Other: Voiding Method Bedpan Toilet Toilet # Unmeasured Voids Void 2 1 Bowel Movement No # Bowel Movements 0 - Wound A&Ox3, NAD unlabored resp on RA Left Heel Assessment: Improved Wound Length (cm.): 3.9 Wound Width (cm.): 4.5 Wound Depth (cm.): 0.5 Fibrotic Tissue: Yes Necrotic tissue: No Granulation tissue: Yes Drainage: Yes Drainage odor: Malodorous Left Lateral Foot Assessment: Improved Wound Length (cm.): 1.9 Wound Width (cm.): 2.9 Wound Depth (cm.): 0.3 Fibrotic Tissue: Yes Necrotic tissue: No Granulation tissue: Yes Drainage: Yes Drainage odor: Malodorous Problem List - Problems (1) PAD (peripheral artery disease) Assessment/Plan: Patient with reduced flow and chronic wound ulcers. Will need Angio/angioplasty. 1) Pre-op clearance for Angio/angioplasty 07/20 2) Santyl daily to foot wounds 3) Offload pressure sensitive areas Code(s): I73.9 - PERIPHERAL VASCULAR DISEASE, UNSPECIFIED
--- NOTE | 2018-07-19 16:11 | PN ---
Teaching Attending Note Name of Resident: Tabatha Neal ATTENDING PHYSICIAN STATEMENT I saw and evaluated the patient. I reviewed the resident's note and discussed the case with the resident. I agree with the resident's findings and plan as documented. SUBJECTIVE: No fevers since last evening. OBJECTIVE: Febrile - T 102 max, Hemodynamically Stable Last Vital Signs Temp Pulse Resp BP Pulse Ox 98.4 F 72 21 H 114/57 L 95 07/19/18 14:00 07/19/18 14:00 07/19/18 14:00 07/19/18 14:00 07/19/18 09:00 Heart - S1, S2, RRR Lungs - Clear to auscultation Abdomen - soft, non-tender. Bowel Sounds normal. Extremities - L foot amputations dressed - 1st/2nd/5th toes, dorsal necrotic ulcer, calcaneal purulent and malodorous ulcer Laboratory Results - last 24 hr 07/18/18 07/18/18 07/18/18 10:35 10:35 16:18 WBC RBC Hgb Hct MCV MCH MCHC RDW Plt Count MPV Absolute Neuts (auto) Neutrophils % Lymphocytes % Monocytes % Eosinophils % Basophils % Nucleated RBC % PT with INR INR Sodium 135 L Potassium 4.1 Chloride 102 Carbon Dioxide 25 Anion Gap 7 L BUN 26 H Creatinine 1.0 Est GFR (CKD-EPI)AfAm 72.93 Est GFR (CKD-EPI)NonAf 62.93 POC Glucometer 354 Random Glucose 247 H Hemoglobin A1c % Calcium 8.7 Phosphorus Magnesium Ferritin Total Bilirubin 0.4 AST 17 ALT 21 Alkaline Phosphatase 113 C-Reactive Protein 12.4 H Total Protein 7.8 Albumin 3.0 L Vitamin B12 1546 H Serum Folate 36 H Blood Type O POSITIVE Antibody Screen Negative Crossmatch See Detail 07/18/18 07/19/18 07/19/18 22:14 05:54 07:40 WBC 9.4 RBC 2.45 L Hgb 6.9 L* Hct 21.5 L MCV 87.7 MCH 28.2 MCHC 32.2 RDW 15.1 Plt Count 262 MPV 8.5 Absolute Neuts (auto) 7.6 Neutrophils % 81.1 Lymphocytes % 12.5 D Monocytes % 4.7 Eosinophils % 1.3 Basophils % 0.4 Nucleated RBC % 0 PT with INR INR Sodium Potassium Chloride Carbon Dioxide Anion Gap BUN Creatinine Est GFR (CKD-EPI)AfAm Est GFR (CKD-EPI)NonAf POC Glucometer 235 311 Random Glucose Hemoglobin A1c % Calcium Phosphorus Magnesium Ferritin Total Bilirubin AST ALT Alkaline Phosphatase C-Reactive Protein Total Protein Albumin Vitamin B12 Serum Folate Blood Type Antibody Screen Crossmatch 07/19/18 07/19/18 07/19/18 07:40 07:40 07:40 WBC RBC Hgb Hct MCV MCH MCHC RDW Plt Count MPV Absolute Neuts (auto) Neutrophils % Lymphocytes % Monocytes % Eosinophils % Basophils % Nucleated RBC % PT with INR 13.70 H INR 1.16 H Sodium 130 L Potassium 4.4 Chloride 97 L Carbon Dioxide 27 Anion Gap 5 L BUN 27 H Creatinine 1.2 Est GFR (CKD-EPI)AfAm 58.51 Est GFR (CKD-EPI)NonAf 50.48 POC Glucometer Random Glucose 350 H* Hemoglobin A1c % 10.6 H Calcium 8.3 L Phosphorus 3.4 Magnesium 2.1 Ferritin Total Bilirubin 0.5 AST 17 ALT 19 Alkaline Phosphatase 99 C-Reactive Protein Total Protein 6.4 Albumin 2.4 L Vitamin B12 Serum Folate Blood Type Antibody Screen Crossmatch 07/19/18 07/19/18 07/19/18 07:40 11:59 15:52 WBC RBC Hgb Hct MCV MCH MCHC RDW Plt Count MPV Absolute Neuts (auto) Neutrophils % Lymphocytes % Monocytes % Eosinophils % Basophils % Nucleated RBC % PT with INR INR Sodium Potassium Chloride Carbon Dioxide Anion Gap BUN Creatinine Est GFR (CKD-EPI)AfAm Est GFR (CKD-EPI)NonAf POC Glucometer 308 254 Random Glucose Hemoglobin A1c % Calcium Phosphorus Magnesium Ferritin 403.2 H Total Bilirubin AST ALT Alkaline Phosphatase C-Reactive Protein Total Protein Albumin Vitamin B12 Serum Folate Blood Type Antibody Screen Crossmatch Current Medications Generic Name Dose Route Start Last Admin Trade Name Freq PRN Reason Stop Dose Admin Acetaminophen 650 mg 07/18/18 17:55 07/19/18 11:44 Tylenol - PO 650 mg Q4H PRN Administration PAIN LEVEL 6-10 Aspirin 81 mg 07/19/18 10:00 07/19/18 10:12 Asa - PO 81 mg DAILY SE[facility] Administration Carvedilol 6.25 mg 07/18/18 22:00 07/19/18 10:03 Coreg - PO Not Given BID SEVERIANO Collagenase 1 applic 07/19/18 10:00 07/19/18 11:39 Santyl - TP 1 applic DAILY [facility] Administration Protocol Heparin Sodium (Porcine) 5,000 unit 07/18/18 22:00 07/19/18 15:32 Heparin - SQ 5,000 unit TID SEVERIANO Administration Piperacillin Sod/Tazobactam 50 mls @ 100 mls/hr 07/18/18 18:00 07/19/18 10:12 Sod 3.375 gm/ Dextrose IVPB 100 mls/hr Q8H-IV SEVERIANO Administration Protocol Vancomycin HCl 1,000 mg in 250 mls @ 166.667 mls/hr 07/19/18 02:00 07/19/18 15:59 Vancomycin (Pre-Docked) IVPB 166.667 mls/hr Q12H SEVERIANO Administration Protocol Insulin Aspart 1 vial 07/18/18 16:30 07/19/18 16:05 Novolog Vial Sliding Scale - SQ 6 units ACHS SEVERIANO Administration Protocol Pantoprazole Sodium 40 mg 07/20/18 10:00 Protonix - PO DAILY SE[facility] ASSESSMENT AND PLAN: 57 year old female with history of HTN, HLD, DM 2, PVD, s/p Femoral artery angioplasty, s/p popliteal artery angioplasty, s/p left foot toe amputations, referred from wound care for worsening/infected foot ulcer. 1. L foot Infected Ulcer Febrile yesterday Scheduled for Angio on by Dr. Jones, Vascular Surgery - NPO after midnight Wound Cx - prelim positive for Pseudomonas, NLFGNB, Group D Strep or Enterococcus, LFNB MRI to exclude Osteomyelitis. Continue Zosyn/Vanco ID following. 2. DM 2, uncontrolled A1C 10.6 Oral anti-hyperglycemics held Maintain on Novolog sliding scale insulin - will up-titrate tier due to high sugars. 3. HTN - Continue Coreg 4. Normocytic Anemia - H/H 6.9/21.5, MCV 88.4. No evidence of blood loss Iron/Ferritin pending B12/Folate - 1546/36. Will transfuse 1 unit PRBCs prior to vascular study/procedure. DVT Px - Heparin SQ
[2018-07-19 19:03] LABS: HEMATOCRIT 26.3 % (32.4-45.2); HEMOGLOBIN 8.6 GM/dL (10.7-15.3); MCH 28.5 pg (25.7-33.7); MCHC 32.8 g/dl (32.0-36.0); MEAN CELL VOLUME 86.9 fl (80-96); MEAN PLT VOLUME 9.1 fl (7.5-11.1); PLATELET COUNT 296 K/MM3 (134-434); RBC 3.03 M/mm3 (3.60-5.2); RDW 14.7 % (11.6-15.6); WHITE BLOOD COUNT 9.2 K/mm3 (4.0-10.0)
[2018-07-20] MEDS: PIPERACILLIN/TAZOB 3.375 GM 3.375 GM in DEXTROSE 5%-WATER - 50 ML IVPB SCH ×3 (02:51→17:30)
[2018-07-20] MEDS: VANCOMYCIN 1 GRAM (PRE-DOCKED) 1,000 MG/250 ML BAG IVPB SCH ×3 (02:52→18:11)
[2018-07-20] MEDS ORDERED: DEXTROSE 5%-WATER - 50 ML IVPB ONE ×3 (04:47→17:22)
[2018-07-20] MEDS ORDERED: PIPERACILLIN/TAZOBACTAM 3.375 GM VIAL IVPB ONE ×3 (04:47→17:21)
[2018-07-20] MEDS: HEPARIN NA (PORCINE) 5,000 UNITS/ML 1ML VIAL SQ SCH ×3 (06:10→22:22)
[2018-07-20] MEDS: INSULIN SLIDING SCALE (NOVOLOG) 1 VIAL SQ SCH ×4 (06:28→22:23)
--- NOTE | 2018-07-20 07:30 | PN ---
Physical Exam: SUBJECTIVE: Patient seen this morning. Requesting stool softeners for constipation and more pain medication. No acute events overnight. OBJECTIVE: Vital Signs Temperature 98.9 F 07/20/18 05:35 Pulse Rate 79 07/20/18 05:35 Respiratory Rate 20 07/20/18 05:35 Blood Pressure 132/68 07/20/18 05:35 O2 Sat by Pulse Oximetry (%) 95 07/19/18 09:00 GENERAL: The patient is awake, alert, and fully oriented, in no acute distress. HEAD: Normal with no signs of trauma. NECK: Trachea midline, full range of motion, supple. LUNGS: Breath sounds equal, clear to auscultation bilaterally, HEART: Regular rate and rhythm, S1, S2 without murmur, rub or gallop. ABDOMEN: Soft, nontender, nondistended, normoactive bowel sounds, LOWER EXTREMITIES: 1+ dp pulses. s/p amputation of L 1st, 2nd, 5th toes. L forefoot w/gangrenous ulcer. L calcaneus ulcer, foul smelling, with purulence. CBCD WBC 9.2 K/mm3 (4.0-10.0) 07/19/18 18:00 RBC 3.03 M/mm3 (3.60-5.2) L 07/19/18 18:00 Hgb 8.6 GM/dL (10.7-15.3) L 07/19/18 18:00 Hct 26.3 % (32.4-45.2) L D 07/19/18 18:00 MCV 86.9 fl (80-96) 07/19/18 18:00 MCHC 32.8 g/dl (32.0-36.0) 07/19/18 18:00 RDW 14.7 % (11.6-15.6) 07/19/18 18:00 Plt Count 296 K/MM3 (134-434) 07/19/18 18:00 MPV 9.1 fl (7.5-11.1) 07/19/18 18:00 CMP Sodium 130 mmol/L (136-145) L 07/19/18 07:40 Potassium 4.4 mmol/L (3.5-5.1) 07/19/18 07:40 Chloride 97 mmol/L (98-107) L 07/19/18 07:40 Carbon Dioxide 27 mmol/L (21-32) 07/19/18 07:40 Anion Gap 5 MMOL/L (8-16) L 07/19/18 07:40 BUN 27 mg/dL (7-18) H 07/19/18 07:40 Creatinine 1.2 mg/dL (0.55-1.3) 07/19/18 07:40 Calcium 8.3 mg/dL (8.5-10.1) L 07/19/18 07:40 Total Bilirubin 0.5 mg/dL (0.2-1) 07/19/18 07:40 AST 17 U/L (15-37) 07/19/18 07:40 ALT 19 U/L (13-61) 07/19/18 07:40 Alkaline Phosphatase 99 U/L (45-117) 07/19/18 07:40 Total Protein 6.4 g/dl (6.4-8.2) 07/19/18 07:40 Albumin 2.4 g/dl (3.4-5.0) L 07/19/18 07:40 Active Medications Acetaminophen (Tylenol -) 650 mg PO Q4H PRN PRN Reason: PAIN LEVEL 6-10 Last Admin: 07/19/18 19:23 Dose: 650 mg Aspirin (Asa -) 81 mg PO DAILY [facility] Last Admin: 07/19/18 10:12 Dose: 81 mg Carvedilol (Coreg -) 6.25 mg PO BID [facility] Last Admin: 07/19/18 22:09 Dose: 6.25 mg Collagenase (Santyl -) 1 applic TP DAILY [facility]; Protocol Last Admin: 07/19/18 11:39 Dose: 1 applic Heparin Sodium (Porcine) (Heparin -) 5,000 unit SQ TID [facility] Last Admin: 07/20/18 06:10 Dose: Not Given Piperacillin Sod/Tazobactam (Sod 3.375 gm/ Dextrose) 50 mls @ 100 mls/hr IVPB Q8H-IV [facility]; Protocol Last Admin: 07/20/18 02:51 Dose: 100 mls/hr Vancomycin HCl (Vancomycin (Pre-Docked)) 1,000 mg in 250 mls @ 166.667 mls/hr IVPB Q12H [facility]; Protocol Last Admin: 07/20/18 02:52 Dose: 166.667 mls/hr Insulin Aspart (Novolog Vial Sliding Scale -) 1 vial SQ ACHS [facility]; Protocol Last Admin: 07/20/18 06:28 Dose: 10 units Pantoprazole Sodium (Protonix -) 40 mg PO DAILY [facility] Senna/Docusate Sodium (Pericolace -) 1 tablet PO BID [facility] ASSESSMENT/PLAN: Patient is a 57 y/o female with a history of HTN, HLD, DM, PVD, femoral artery angioplasty, and L toe amputations who presents for wet gangrene. #Wet gangrene of left foot - patient seen by Dr. Jones - patient will undergo angioplasty today, f/u results - MRI: soft tissue edema of the foot, edema extends to the cortex - wound cx growing multiple organisms - On Zosyn and Vancomycin ( day 3), hx of MRSA - f/u consult with Dr Foley #anemia, 2/2 to chronic disease - chronic anemia at base line - received 1 unit yesterday and responded - normal transfusion guidelines, please give if below 7 - stool for occult blood - iron 24, TIBC 184, ferritin 403 #HTN - continue carvedilol 12.5 BID - continue ASA 81 mg #DM - SS - A1C 10.6 - patient poorly controlled as an outpatient #DVT ppx - heparin TID #GI ppx - protonix 40 daily FEN - NPO before procedures - Dispo: monitor on med-surg, f/u with vascular for management of foot Visit type - Emergency Visit Emergency Visit: No - New Patient This patient is new to me today: No - Critical Care Critical Care patient: No
[2018-07-20 08:06] LABS: SERUM IRON SATURATION 13 % (15-55); TOTAL IRON BINDING CAPACITY 184 ug/dL (250-450); UIBC 160 ug/dL (131-425)
[2018-07-20 08:36] LABS: HEMATOCRIT 25.9 % (32.4-45.2); HEMOGLOBIN 8.7 GM/dL (10.7-15.3); MCH 28.8 pg (25.7-33.7); MCHC 33.5 g/dl (32.0-36.0); MEAN CELL VOLUME 85.9 fl (80-96); MEAN PLT VOLUME 8.6 fl (7.5-11.1); PLATELET COUNT 322 K/MM3 (134-434); RBC 3.01 M/mm3 (3.60-5.2); RDW 14.7 % (11.6-15.6); WHITE BLOOD COUNT 10.1 K/mm3 (4.0-10.0)
[2018-07-20 09:05] LABS: ALBUMIN 2.7 g/dl (3.4-5.0); BILIRUBIN,TOTAL 0.6 mg/dL (0.2-1); POTASSIUM 4.3 mmol/L (3.5-5.1)
[2018-07-20] MEDS: COLLAGENASE CLOSTRIDIUM HIST. 30 GRAMS TUBE TP SCH (09:42)
[2018-07-20] MEDS: ASPIRIN 81 MG CHEWABLE TABLETS PO SCH (09:42)
[2018-07-20] MEDS: CARVEDILOL 6.25 MG TABLET (FP) PO SCH ×2 (09:49→22:22)
[2018-07-20] MEDS ORDERED: PANTOPRAZOLE 40 MG TABLET (FP) PO SCH (10:00)
[2018-07-20] MEDS ORDERED: SENNOSIDES/DOCUSATE COMBO (SENNA PLUS) TABLET (UD) PO SCH (10:00)
--- NOTE | 2018-07-20 11:42 | PN ---
Teaching Attending Note Name of Resident: Tabatha Neal ATTENDING PHYSICIAN STATEMENT I saw and evaluated the patient. I reviewed the resident's note and discussed the case with the resident. I agree with the resident's findings and plan as documented. SUBJECTIVE: No further fevers. Some L foot discomfort. OBJECTIVE: No further fevers, Hemodynamically Stable Last Vital Signs Temp Pulse Resp BP Pulse Ox 99.4 F 102 H 20 141/71 95 07/20/18 08:53 07/20/18 08:53 07/20/18 08:53 07/20/18 08:53 07/19/18 09:00 Heart - S1, S2, RRR Lungs - Clear to auscultation Abdomen - soft, non-tender. Bowel Sounds normal. Extremities - L foot amputations dressed - 1st/2nd/5th toes, dorsal necrotic ulcer, calcaneal purulent and malodorous ulcer Laboratory Results - last 24 hr 07/18/18 07/19/18 07/19/18 10:35 07:40 11:59 WBC RBC Hgb Hct MCV MCH MCHC RDW Plt Count MPV Sodium Potassium Chloride Carbon Dioxide Anion Gap BUN Creatinine Est GFR (CKD-EPI)AfAm Est GFR (CKD-EPI)NonAf POC Glucometer 308 Random Glucose Calcium Iron 24 L TIBC 184 L Iron Saturation 13 L Total Bilirubin AST ALT Alkaline Phosphatase Total Protein Albumin Blood Type O POSITIVE Antibody Screen Negative Crossmatch See Detail 07/19/18 07/19/18 07/19/18 15:52 18:00 22:08 WBC 9.2 RBC 3.03 L Hgb 8.6 L Hct 26.3 L D MCV 86.9 MCH 28.5 MCHC 32.8 RDW 14.7 Plt Count 296 MPV 9.1 Sodium Potassium Chloride Carbon Dioxide Anion Gap BUN Creatinine Est GFR (CKD-EPI)AfAm Est GFR (CKD-EPI)NonAf POC Glucometer 254 360 Random Glucose Calcium Iron TIBC Iron Saturation Total Bilirubin AST ALT Alkaline Phosphatase Total Protein Albumin Blood Type Antibody Screen Crossmatch 07/20/18 07/20/18 07/20/18 06:27 07:40 07:40 WBC 10.1 H RBC 3.01 L Hgb 8.7 L Hct 25.9 L MCV 85.9 MCH 28.8 MCHC 33.5 RDW 14.7 Plt Count 322 MPV 8.6 Sodium 136 Potassium 4.3 Chloride 103 Carbon Dioxide 26 Anion Gap 7 L BUN 19 H Creatinine 1.0 Est GFR (CKD-EPI)AfAm 72.93 Est GFR (CKD-EPI)NonAf 62.93 POC Glucometer 307 Random Glucose 287 H Calcium 9.0 Iron TIBC Iron Saturation Total Bilirubin 0.6 AST 15 ALT 19 Alkaline Phosphatase 101 Total Protein 7.0 Albumin 2.7 L Blood Type Antibody Screen Crossmatch 07/20/18 11:29 WBC RBC Hgb Hct MCV MCH MCHC RDW Plt Count MPV Sodium Potassium Chloride Carbon Dioxide Anion Gap BUN Creatinine Est GFR (CKD-EPI)AfAm Est GFR (CKD-EPI)NonAf POC Glucometer 249 Random Glucose Calcium Iron TIBC Iron Saturation Total Bilirubin AST ALT Alkaline Phosphatase Total Protein Albumin Blood Type Antibody Screen Crossmatch Current Medications Generic Name Dose Route Start Last Admin Trade Name Freq PRN Reason Stop Dose Admin Acetaminophen 650 mg 07/18/18 17:55 07/19/18 19:23 Tylenol - PO 650 mg Q4H PRN Administration PAIN LEVEL 6-10 Aspirin 81 mg 07/19/18 10:00 07/20/18 09:42 Asa - PO Not Given DAILY SE[facility]O Carvedilol 6.25 mg 07/18/18 22:00 07/20/18 09:49 Coreg - PO 6.25 mg BID SE[facility]O Administration Collagenase 1 applic 07/19/18 10:00 07/20/18 09:42 Santyl - TP Not Given DAILY [facility] Protocol Heparin Sodium (Porcine) 5,000 unit 07/18/18 22:00 07/20/18 06:10 Heparin - SQ Not Given TID SEVER[facility]O Piperacillin Sod/Tazobactam 50 mls @ 100 mls/hr 07/18/18 18:00 07/20/18 09:49 Sod 3.375 gm/ Dextrose IVPB 100 mls/hr Q8H-IV [facility] Administration Protocol Vancomycin HCl 1,000 mg in 250 mls @ 166.667 mls/hr 07/19/18 02:00 07/20/18 02:52 Vancomycin (Pre-Docked) IVPB 166.667 mls/hr Q12H [facility] Administration Protocol Insulin Aspart 1 vial 07/19/18 16:23 07/20/18 06:28 Novolog Vial Sliding Scale - SQ 10 units ACHS [facility] Administration Protocol Pantoprazole Sodium 40 mg 07/20/18 10:00 07/20/18 09:42 Protonix - PO Not Given DAILY [facility] Senna/Docusate Sodium 1 tablet 07/20/18 10:00 07/20/18 09:42 Pericolace - PO Not Given BID [facility] ASSESSMENT AND PLAN: 57 year old female with history of HTN, HLD, DM 2, PVD, s/p Femoral artery angioplasty, s/p popliteal artery angioplasty, s/p left foot toe amputations, referred from wound care for worsening/infected foot ulcer. 1. L foot Infected Ulcer with underlying Osteomyelitis Fever resolved. Scheduled for Angio by Dr. Jones, Vascular Surgery Wound Cx - prelim positive for Pseudomonas, NLFGNB, Group D Strep or Enterococcus, LFNB MRI L foot - multiple areas of marrow edema suggestive of Osteomyelitis. Continue Zosyn/Vanco ID following. Will consult Podiatry 2. DM 2, uncontrolled A1C 10.6 Oral anti-hyperglycemics held Maintain on Novolog sliding scale insulin. 3. HTN - Continue Coreg 4. Normocytic Anemia - Iron Deficiency. H/H 8.7/25.9 s/p 1 unit PRBCs, No evidence of acute blood loss Iron Sat 13 B12/Folate - 1546/36. DVT Px - Heparin SQ
[2018-07-20] MEDS ORDERED: LIDOCAINE HCL 1%, 10 MG/ML (20ML VIAL) ONE (13:45)
[2018-07-20] MEDS ORDERED: HEPARIN NA (PORCINE) 5,000 UNITS/ML 1ML VIAL ONE (13:45)
[2018-07-20] MEDS ORDERED: MIDAZOLAM HCL 2 MG/2 ML SINGLE DOSE VIAL ONE ×3 (14:12)
[2018-07-20] MEDS ORDERED: ceFAZolin SODIUM 1 GM VIAL IVPB ONE (14:15)
[2018-07-20] MEDS ORDERED: LIDOCAINE HCL 1%, 10 MG/ML (50 mL VIAL) IJ ONE (14:31)
[2018-07-20] MEDS ORDERED: LIDOCAINE HCL 1%, 10 MG/ML (20ML VIAL) NR ONE (14:31)
--- NOTE | 2018-07-20 15:25 | OP ---
Operative Note - Note: Operative Date: 07/20/18 Pre-Operative Diagnosis: Left foot ischemia Operation: Aortogram, LLE angiogram, SFA DCB angioplasty Findings: Stent occlusion in sfa Post-Operative Diagnosis: Same as Pre-op Surgeon: Gen Jones Anesthesia: Fractional Estimated Blood Loss (mls): 50
[2018-07-20] MEDS ORDERED: CLOPIDOGREL BISULFATE 75 MG TABLET (FP) ONE (16:29)
[2018-07-20] MEDS ORDERED: CLOPIDOGREL BISULFATE 75 MG TABLET (FP) PO ONE (16:31)
[2018-07-20] MEDS: CLOPIDOGREL BISULFATE 75 MG TABLET (FP) PO SCH (16:57)
[2018-07-20] MEDS ORDERED: PT OWN MED DRAWER 7, Y5N ONE (17:19)
[2018-07-20] MEDS ORDERED: INSULIN (NOVOLOG) ASPART 100 UNITS/ML 10ML VIAL ONE (17:50)
[2018-07-20] MEDS ORDERED: INSULIN SLIDING SCALE (NOVOLOG) 1 VIAL SQ SCH (22:00)
[2018-07-20] MEDS: SENNOSIDES/DOCUSATE COMBO (SENNA PLUS) TABLET (UD) PO SCH (22:22)
[2018-07-20] MEDS: ACETAMINOPHEN 325 MG TABLET (FP) PO PRN (22:35)
[2018-07-20] MEDS: LACTATED RINGERS SOLUTION 1,000 ML IV SCH (22:53)
--- NOTE | 2018-07-21 00:31 | OP ---
DATE OF OPERATION: 07/20/2018 PREOPERATIVE DIAGNOSIS: Left foot ischemia. POSTOPERATIVE DIAGNOSIS: Left foot ischemia. PROCEDURE: Aortogram, left lower extremity angiogram, superficial femoral artery drug-coated balloon angioplasty. SURGEON: Gen Hadley DO ANESTHESIA: Fractional. BLOOD LOSS: 50 mL. The patient is a 57-year-old female who came in to our clinic yesterday complaining of left foot pain, the foot was cool to touch. She had an ultrasound done in our office, showing that the SFA stents that she has in her left leg are occluded. She then went to the ER and was then brought up today for surgery. The patient was consented for the procedure, understanding all risks, benefits, and alternatives. She was then taken to the operating room. Once in the operating room, she was placed on the operating table in supine manner, and the area of the right and left groin were prepped and draped in a sterile surgical manner. We then went ahead and injected 10 mL of lidocaine 1% over the right common femoral artery. We then went ahead and took our micropuncture needle and punctured the right common femoral artery. Micropuncture wire was inserted, micropuncture sheath was inserted, and a traditional 5-Wallisian sheath was inserted. We then placed a 0.035 floppy guidewire up into the aorta followed by an Omni Flush catheter. We then shot an aortogram via hand injection, showing that the aorta and the iliac arteries were without any disease. We then placed our 0.035 floppy guidewire and went up and over to the left common femoral artery, and our Omni Flush catheter followed. We then shot an angiogram of the left lower extremity, showing that the SFA was occluded from the origin, which is where the stent was, all the way down to the above-knee popliteal artery. At this point, we placed a 0.035 stiff guidewire into the SFA, removed our Omni Flush catheter. A 6 x 45 crossover sheath was placed, 5000 units of IV heparin was administered to the patient. We got our wire down through the stent and all the way into the k[place] artery. We then went ahead and used two 6 x 150 drug-coated balloons and one 6 x 8 drug-coated balloon, and ballooned the entire stent, doing drug-coated balloon angioplasty. The balloons were left up for 2 minutes each so that the paclitaxel drug could disseminate into the arterial wall and the stent. Once completed, we shot an angiogram, showing that the SFA stents are patent, there was good brisk flow down to the distal popliteal artery and the trifurcation, and the main runoff into the foot was the posterior tibial artery, and that was nice and brisk. At this point, we brought our sheath up and over. StarClose device was successfully deployed in the right common femoral artery. Pressure was held for 5 minutes. After there was no more bleeding, the area was wet and dried and Dermabond was placed. Patient tolerated procedure, no complications. Patient transferred to PACU in stable condition. Patient had a strong PT dopplerable pulse. GEN HADLEY DO [id number]
[2018-07-21] MEDS ORDERED: PIPERACILLIN/TAZOBACTAM 3.375 GM VIAL IVPB ONE ×3 (01:35→17:23)
[2018-07-21] MEDS ORDERED: DEXTROSE 5%-WATER - 50 ML IVPB ONE ×3 (01:35→17:23)
[2018-07-21] MEDS: PIPERACILLIN/TAZOB 3.375 GM 3.375 GM in DEXTROSE 5%-WATER - 50 ML IVPB SCH ×3 (01:50→17:31)
[2018-07-21] MEDS: VANCOMYCIN 1 GRAM (PRE-DOCKED) 1,000 MG/250 ML BAG IVPB SCH (05:07)
[2018-07-21] MEDS: HEPARIN NA (PORCINE) 5,000 UNITS/ML 1ML VIAL SQ SCH (06:10)
[2018-07-21] MEDS: INSULIN SLIDING SCALE (NOVOLOG) 1 VIAL SQ SCH ×4 (06:54→21:19)
[2018-07-21 07:54] LABS: HEMATOCRIT 23.6 % (32.4-45.2); HEMOGLOBIN 7.9 GM/dL (10.7-15.3); MCH 28.9 pg (25.7-33.7); MCHC 33.4 g/dl (32.0-36.0); MEAN CELL VOLUME 86.7 fl (80-96); MEAN PLT VOLUME 8.3 fl (7.5-11.1); RBC 2.72 M/mm3 (3.60-5.2); RDW 14.5 % (11.6-15.6); WHITE BLOOD COUNT 8.8 K/mm3 (4.0-10.0)
[2018-07-21 09:13] LABS: ALBUMIN 2.4 g/dl (3.4-5.0); BILIRUBIN,TOTAL 0.6 mg/dL (0.2-1); CALCIUM 8.8 mg/dL (8.5-10.1); CREATININE 0.8 mg/dL (0.55-1.3); POTASSIUM 4.1 mmol/L (3.5-5.1); TOT PROT 6.5 g/dl (6.4-8.2)
--- NOTE | 2018-07-21 09:41 | PN ---
Progress Note (short form) - Note Progress Note: Surgery POD#1 Aortogram, LLE angiogram, SFA DCB angioplasty Findings: Stent occlusion in sfa Patient seen and examined at bedside c/o some nausea overnight but has resolved. She denies chest pain, SOB, Vomiting, fever or chills. She is tolerating her diet and her pain is controlled. Vital Signs Temp 98.7 F 07/21/18 05:56 Pulse 78 07/21/18 05:56 Resp 20 07/21/18 05:56 BP 153/70 07/21/18 05:56 Pulse Ox 98 07/20/18 21:00 Intake & Output 07/20/18 07/20/18 07/21/18 11:59 23:59 11:59 Intake Total 772 152 6061 Output Total 400 600 Balance 300 100 700 Weight 172 lb Intake: IV 200 IVPB 300 50 Oral 300 1250 Output: Urine 400 600 Void 400 600 Other: Voiding Method Bedpan # Unmeasured Voids Void 1 Bowel Movement No # Bowel Movements 1 Height 5 ft 3 in Body Mass Index (BMI) 30.4 CBC, BMP 07/21/18 07:20 07/21/18 07:20 PE: A&Ox3, NAD Unlabored resp on RA Right groin site clean and dry with surrounding tissue intact, no evidence of d/ c or collection. Thigh soft, supple and non-tender to palpation. Right LE compartments soft and supple, right foot warm and well perfused. Left LE Thigh soft, supple and non-tender to palpation. Right LE compartments soft and supple with well healed scars. right foot warm and well perfused with palpable +2 DP pulses. Foot wounds unchanged from previous exam. Problem List - Problems (1) PAD (peripheral artery disease) Assessment/Plan: POD#1 angioplasty Left LE. 1) Continue left foot wound care as ordered 2) Offload pressure sensitive areas 3) OOB as tolerated- fall risk Code(s): I73.9 - PERIPHERAL VASCULAR DISEASE, UNSPECIFIED
[2018-07-21] MEDS: CARVEDILOL 6.25 MG TABLET (FP) PO SCH ×2 (10:13→21:16)
[2018-07-21] MEDS: PANTOPRAZOLE 40 MG TABLET (FP) PO SCH (10:14)
[2018-07-21] MEDS: CLOPIDOGREL BISULFATE 75 MG TABLET (FP) PO SCH (10:14)
[2018-07-21] MEDS: ACETAMINOPHEN 325 MG TABLET (FP) PO PRN ×2 (10:14→21:20)
[2018-07-21] MEDS: ASPIRIN 81 MG CHEWABLE TABLETS PO SCH (10:14)
[2018-07-21] MEDS: COLLAGENASE CLOSTRIDIUM HIST. 30 GRAMS TUBE TP SCH (10:16)
[2018-07-21] MEDS ORDERED: INSULIN (NOVOLOG) ASPART 100 UNITS/ML 10ML VIAL ONE ×2 (11:44→21:18)
[2018-07-21] MEDS: POLYETHYLENE GLYCOL 3350 119 GM BTL PO SCH (12:06)
[2018-07-21] MEDS: SENNOSIDES/DOCUSATE COMBO (SENNA PLUS) TABLET (UD) PO SCH ×2 (12:06→21:16)
[2018-07-21 12:10] LABS: PLATELET COUNT 270 K/MM3 (134-434)
--- NOTE | 2018-07-21 12:17 | CONSULT ---
Consult Consult Specialty:: PODIATRY Reason for Consultation:: left foot gangrenous ulcerations and osteo - History of Present Illness History of Present Illness: 57 y/o female s/p revasc on the left leg seen at bedside with left foot extensive gangrenous ulcerations. States she has had them for many months and the gangrene continues to progress. States she was admitted and had surgery to optimze blood flow but is hesitant about total limb salvage. Denies any other pedal complaints. Denies f/c/n/v/s/tanner. - Past Medical History Cardio/Vascular: Yes: HTN, Hyperlipdemia ...LMP: 02/15/15 ...: No Endocrine: Yes: Diabetes Mellitus - Past Surgical History Past Surgical History: Yes: Amputation, Bypass - Alcohol/Substance Use Hx Alcohol Use: No - Smoking History Smoking history: Never smoked Have you smoked in the past 12 months: No If you are a former smoker, when did you quit?: 10-15 years ago - Social History Usual Living Arrangement: Alone ADL: Independent History of Recent Travel: No Home Medications - Allergies Allergies/Adverse Reactions: Allergies Allergy/AdvReac Type Severity Reaction Status Date / Time Iodinated Contrast- Oral and Allergy Verified 05/31/18 14:06 IV Dye - Home Medications Home Medications: Ambulatory Orders Aspirin [ASA -] 81 mg PO DAILY 05/03/17 Insulin Glargine,Hum.rec.anlog 22 units SQ ASDIR PRN 12/02/17 Insulin Glargine,Hum.rec.anlog [Oumaraglave Steward U-100] 2 unit SQ HS 12/02/17 Collagenase Clostridium Hist. [Santyl] 1 applic TP DAILY #90 oint...g. 06/12/18 Carvedilol [Coreg -] 12.5 tab PO BID 07/03/18 Ascorbate Calcium [Vitamin C] 500 mg PO DAILY 07/18/18 Physical Exam Vital Signs: Vital Signs Temperature 98.7 F 07/21/18 05:56 Pulse Rate 78 07/21/18 05:56 Respiratory Rate 20 07/21/18 05:56 Blood Pressure 153/70 07/21/18 05:56 O2 Sat by Pulse Oximetry (%) 98 07/20/18 21:00 Extremities: Yes: Amputation, Other (notable extensive gangrenous changes to the left foot, 4/5 MPJ ulceration with gangrene extending plantarly to roughly 1st MPJ with dry eschar all the way across, mild erythema noted, mild edema, no purulence, mild malodor noted, bone exposed left heel with calcaneus exposed and gangrenous changes surrounding, roughly 3-4 cm ulceration, plantar fascia exposed, no purulence, mild surrounding erythema and edema.) Labs: CBC, BMP 07/21/18 07:20 07/21/18 07:20 Assessment/Plan A: Left foot gangrene PVD Left foot osteo P: Evaluated and reviewed had long discussion about chance for limb salvage vs possible bka in future she understands that may not heal is optimized for debridment and can be scheduled as outpatient Iv abx per ID Canf /u with Dr. Jones/Dr. Keene upon d/c in wound care center for debridment planning.
--- NOTE | 2018-07-21 13:52 | DS ---
Physical Exam: SUBJECTIVE: Patient seen this morning s/p angioplasty. No complaints OBJECTIVE: Vital Signs Temperature 98.7 F 07/21/18 05:56 Pulse Rate 78 07/21/18 05:56 Respiratory Rate 20 07/21/18 05:56 Blood Pressure 153/70 07/21/18 05:56 O2 Sat by Pulse Oximetry (%) 98 07/20/18 21:00 PHYSICAL EXAM GENERAL: The patient is awake, alert, and fully oriented, in no acute distress. HEAD: Normal with no signs of trauma. NECK: Trachea midline, full range of motion, supple. LUNGS: Breath sounds equal, clear to auscultation bilaterally, HEART: Regular rate and rhythm, S1, S2 without murmur, rub or gallop. ABDOMEN: Soft, nontender, nondistended, normoactive bowel sounds, LOWER EXTREMITIES: 1+ dp pulses. s/p amputation of L 1st, 2nd, 5th toes. L forefoot w/gangrenous ulcer. L calcaneus ulcer, foul smelling, with purulence. LABS CBCD WBC 8.8 K/mm3 (4.0-10.0) 07/21/18 07:20 RBC 2.72 M/mm3 (3.60-5.2) L 07/21/18 07:20 Hgb 7.9 GM/dL (10.7-15.3) L 07/21/18 07:20 Hct 23.6 % (32.4-45.2) L 07/21/18 07:20 MCV 86.7 fl (80-96) 07/21/18 07:20 MCHC 33.4 g/dl (32.0-36.0) 07/21/18 07:20 RDW 14.5 % (11.6-15.6) 07/21/18 07:20 Plt Count 270 K/MM3 (134-434) 07/21/18 07:20 MPV 8.3 fl (7.5-11.1) 07/21/18 07:20 CMP Sodium 135 mmol/L (136-145) L 07/21/18 07:20 Potassium 4.1 mmol/L (3.5-5.1) 07/21/18 07:20 Chloride 100 mmol/L (98-107) 07/21/18 07:20 Carbon Dioxide 29 mmol/L (21-32) 07/21/18 07:20 Anion Gap 6 MMOL/L (8-16) L 07/21/18 07:20 BUN 13 mg/dL (7-18) 07/21/18 07:20 Creatinine 0.8 mg/dL (0.55-1.3) 07/21/18 07:20 Calcium 8.8 mg/dL (8.5-10.1) 07/21/18 07:20 Total Bilirubin 0.6 mg/dL (0.2-1) 07/21/18 07:20 AST 12 U/L (15-37) L 07/21/18 07:20 ALT 15 U/L (13-61) 07/21/18 07:20 Alkaline Phosphatase 87 U/L (45-117) 07/21/18 07:20 Total Protein 6.5 g/dl (6.4-8.2) 07/21/18 07:20 Albumin 2.4 g/dl (3.4-5.0) L 07/21/18 07:20 HOSPITAL COURSE: Date of Admission:07/18/18 Patient is a 57 y/o female with a history of HTN, HLD, DM, PVD, femoral artery angioplasty, and L toe amputations who presents for wet gangrene. patient has a long history of chronic wounds. Patient underwent an aortogram, LLE angiogram, SFA DCB angioplasty by our vascular surgeon Dr. Jones. Stent occlusion was found in sfa and was revascularized with open flow. Patient placed on clopidogrel. Patient evaluated by the Podiatry service. talked at length for chance of limb salvage and possible BKA. Patient will be set up for debridment as an outpatient. Patient will have PICC line placed and will go to a SNF on abx as an outpatient. Patient vitals stable for discharge. 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 Dr. Jones performed a procedure to restore blood flow to your leg. While you were in the hospital we treated the infection in your foot with antibiotics. You were evaluated by Dr. Keene who states that you will need correction antibiotics. For this we have placed a PICC line and you will receive the antibiotics at a nursing facility. Care for the PICC line is as follows: -Use good hand hygiene; wash your hands before use, dont touch the PICC line or dressing unless you need to, -Keep the PICC dry; dont take baths or go swimming, take a sponge bath to avoid the PICC line from getting wet -Avoid damage; dont use sharp or pointy objects around the catheter, try not to let clothing pull on the catheter -Avoid lowering your chest below your waist The antibiotics you will continue for the infection in your foot is: It is very important that your sugars are well controlled. 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 Please continue your home medications as prescribed. Please make an appointment to follow up with your primary care physician within one week. Return the Emergency Department if you have any continued pain in your foot Referrals: Yogi Keene MD [Staff Physician] - Gen Jones MD [Non Staff, Medical] - Disposition: NURSING HOME FACILITY - Home Medications Comprehensive Discharge Medication List: Ambulatory Orders Aspirin [ASA -] 81 mg PO DAILY 05/03/17 Insulin Glargine,Hum.rec.anlog 22 units SQ ASDIR PRN 12/02/17 Insulin Glargine,Hum.rec.anlog [Basaglar Allanikpen U-100] 2 unit SQ HS 12/02/17 Collagenase Clostridium Hist. [Santyl] 1 applic TP DAILY #90 oint...g. 06/12/18 Carvedilol [Coreg -] 12.5 tab PO BID 07/03/18 Ascorbate Calcium [Vitamin C] 500 mg PO DAILY 07/18/18 This patient is new to me today: No Emergency Visit: No Critical Care patient: No - Discharge Referral Referred to [facility] No
--- NOTE | 2018-07-21 14:52 | PN ---
Teaching Attending Note Name of Resident: Tabatha Neal ATTENDING PHYSICIAN STATEMENT I saw and evaluated the patient. I reviewed the resident's note and discussed the case with the resident. I agree with the resident's findings and plan as documented. SUBJECTIVE: No further fevers. Some ongoing L foot discomfort s/p Angio with balloon angioplasty. OBJECTIVE: Afebrile, Hemodynamically Stable Last Vital Signs Temp Pulse Resp BP Pulse Ox 98.7 F 78 20 153/70 98 07/21/18 05:56 07/21/18 05:56 07/21/18 05:56 07/21/18 05:56 07/20/18 21:00 Heart - S1, S2, RRR Lungs - Clear to auscultation Abdomen - soft, non-tender. Bowel Sounds normal. Extremities - L foot amputations dressed - 1st/2nd/5th toes, dorsal necrotic ulcer, calcaneal purulent and malodorous ulcer Laboratory Results - last 24 hr 07/20/18 07/20/18 07/21/18 16:51 22:16 06:04 WBC RBC Hgb Hct MCV MCH MCHC RDW Plt Count MPV Sodium Potassium Chloride Carbon Dioxide Anion Gap BUN Creatinine Est GFR (CKD-EPI)AfAm Est GFR (CKD-EPI)NonAf POC Glucometer 216 271 214 Random Glucose Calcium Total Bilirubin AST ALT Alkaline Phosphatase Total Protein Albumin 07/21/18 07/21/18 07/21/18 07:20 07:20 11:42 WBC 8.8 RBC 2.72 L Hgb 7.9 L Hct 23.6 L MCV 86.7 MCH 28.9 MCHC 33.4 RDW 14.5 Plt Count 270 MPV 8.3 Sodium 135 L Potassium 4.1 Chloride 100 Carbon Dioxide 29 Anion Gap 6 L BUN 13 Creatinine 0.8 Est GFR (CKD-EPI)AfAm 95.52 Est GFR (CKD-EPI)NonAf 82.42 POC Glucometer 272 Random Glucose 271 H Calcium 8.8 Total Bilirubin 0.6 AST 12 L ALT 15 Alkaline Phosphatase 87 Total Protein 6.5 Albumin 2.4 L Current Medications Generic Name Dose Route Start Last Admin Trade Name Freq PRN Reason Stop Dose Admin Acetaminophen 650 mg 07/20/18 16:38 07/21/18 10:14 Tylenol - PO 650 mg Q4H PRN Administration PAIN LEVEL 6-10 Aspirin 81 mg 07/21/18 10:00 07/21/18 10:14 Asa - PO 81 mg DAILY [facility] Administration Carvedilol 6.25 mg 07/20/18 22:00 07/21/18 10:13 Coreg - PO 6.25 mg BID [facility] Administration Clopidogrel Bisulfate 75 mg 07/20/18 15:30 07/21/18 10:14 Plavix - PO 75 mg DAILY [facility] Administration Collagenase 1 applic 07/21/18 10:00 07/21/18 10:16 Santyl - TP 1 ng DAILY [facility] Administration Protocol Lactated Ringer's 1,000 mls @ 125 mls/hr 07/20/18 15:30 07/20/18 22:53 Lactated Ringers Solution IV 125 mls/hr ASDIR [facility] Administration Vancomycin HCl 1,000 mg in 250 mls @ 166.667 mls/hr 07/20/18 17:00 07/21/18 05:07 Vancomycin (Pre-Docked) IVPB 166.667 mls/hr Q12H [facility] Administration Protocol Piperacillin Sod/Tazobactam 50 mls @ 100 mls/hr 07/20/18 18:00 07/21/18 10:15 Sod 3.375 gm/ Dextrose IVPB 100 mls/hr Q8H-IV [facility] Administration Protocol Insulin Aspart 1 vial 07/20/18 17:15 07/21/18 12:05 Novolog Vial Sliding Scale - SQ 8 units ACHS [facility] Administration Protocol Pantoprazole Sodium 40 mg 07/21/18 10:00 07/21/18 10:14 Protonix - PO 40 mg DAILY [facility] Administration Polyethylene Glycol 17 gm 07/21/18 10:00 07/21/18 12:06 Miralax (For Daily Use) - PO 17 gm DAILY [facility] Administration Senna/Docusate Sodium 1 tablet 07/20/18 22:00 07/21/18 12:06 Pericolace - PO 1 tablet BID [facility] Administration ASSESSMENT AND PLAN: 57 year old female with history of HTN, HLD, DM 2, PVD, s/p Femoral artery angioplasty, s/p popliteal artery angioplasty, s/p left foot toe amputations, referred from wound care for worsening/infected foot ulcer. 1. L foot Infected Ulcer with underlying Osteomyelitis Fever resolved. s/p Angio/Balloon Angioplasty by Dr. Jones, Vascular Surgery Wound Cx - positive for Pseudomonas, Klebsiella, Enterococcus. MRI L foot - multiple areas of marrow edema suggestive of Osteomyelitis. Seen by Podiatry - for out-patient elective debridement On Zosyn/Vanco - further Abx recommendations by ID For PICC and SNF placement. Out-patient Dr. Jones, Dr. Foley 2. DM 2, uncontrolled A1C 10.6 - resume home meds 3. HTN - Continue Coreg 4. Normocytic Anemia - Iron Deficiency. H/H 8.7/25.9 s/p 1 unit PRBCs, No evidence of acute blood loss Iron Sat 13 B12/Folate - 1546/36. Started on Ferrous Sulfate For out-patient follow up/work-up. Medically Stable for discharge to SNF on IV Abx s/p PICC
--- NOTE | 2018-07-21 15:16 | PN ---
Progress Note, Physician History of Present Illness: AWAKE, ALERT IN BED NO COMPLAINTS AFEBRILE WOUND C/S POLYMICROBIAL - Current Medication List Current Medications: Active Medications Acetaminophen (Tylenol -) 650 mg PO Q4H PRN PRN Reason: PAIN LEVEL 6-10 Last Admin: 07/21/18 10:14 Dose: 650 mg Aspirin (Asa -) 81 mg PO DAILY [facility] Last Admin: 07/21/18 10:14 Dose: 81 mg Carvedilol (Coreg -) 6.25 mg PO BID [facility] Last Admin: 07/21/18 10:13 Dose: 6.25 mg Clopidogrel Bisulfate (Plavix -) 75 mg PO DAILY [facility] Last Admin: 07/21/18 10:14 Dose: 75 mg Collagenase (Santyl -) 1 applic TP DAILY [facility]; Protocol Last Admin: 07/21/18 10:16 Dose: 1 ng Ferrous Sulfate (Feosol -) 325 mg PO BID [facility] Lactated Ringer's (Lactated Ringers Solution) 1,000 mls @ 125 mls/hr IV ASDIR [facility] Last Admin: 07/20/18 22:53 Dose: 125 mls/hr Vancomycin HCl (Vancomycin (Pre-Docked)) 1,000 mg in 250 mls @ 166.667 mls/hr IVPB Q12H [facility]; Protocol Last Admin: 07/21/18 05:07 Dose: 166.667 mls/hr Piperacillin Sod/Tazobactam (Sod 3.375 gm/ Dextrose) 50 mls @ 100 mls/hr IVPB Q8H-IV [facility]; Protocol Last Admin: 07/21/18 10:15 Dose: 100 mls/hr Insulin Aspart (Novolog Vial Sliding Scale -) 1 vial SQ ACHS [facility]; Protocol Last Admin: 07/21/18 12:05 Dose: 8 units Pantoprazole Sodium (Protonix -) 40 mg PO DAILY [facility] Last Admin: 07/21/18 10:14 Dose: 40 mg Polyethylene Glycol (Miralax (For Daily Use) -) 17 gm PO DAILY [facility] Last Admin: 07/21/18 12:06 Dose: 17 gm Senna/Docusate Sodium (Pericolace -) 1 tablet PO BID [facility] Last Admin: 07/21/18 12:06 Dose: 1 tablet - Objective Vital Signs: Vital Signs Temperature 98.7 F 07/21/18 05:56 Pulse Rate 78 07/21/18 05:56 Respiratory Rate 20 07/21/18 05:56 Blood Pressure 153/70 07/21/18 05:56 O2 Sat by Pulse Oximetry (%) 98 07/20/18 21:00 Constitutional: Yes: No Distress Cardiovascular: Yes: Regular Rate and Rhythm, S1, S2 Respiratory: Yes: CTA Bilaterally Extremities: Yes: Other (+ NECROTIC, MALODOROUS ULCERS OF CALCANEUS AND PLANTAR SURFACE) Labs: CBC, BMP 07/21/18 07:20 07/21/18 07:20 INR, PTT INR 1.16 (0.83-1.09) H 07/19/18 07:40 Assessment/Plan NECROTIC, INFECTED DIABETIC FOOT ULCERS OSTEOMYELITIS FOR PICC ZOSYN 3.375 GM IVPB Q8H TOTAL 6WK
[2018-07-21] MEDS: FERROUS SO4 325 MG TABLET (FP) PO SCH (21:16)
[2018-07-22] MEDS ORDERED: PIPERACILLIN/TAZOBACTAM 3.375 GM VIAL IVPB ONE ×3 (00:38→16:29)
[2018-07-22] MEDS ORDERED: DEXTROSE 5%-WATER - 50 ML IVPB ONE ×3 (00:38→16:29)
[2018-07-22] MEDS: PIPERACILLIN/TAZOB 3.375 GM 3.375 GM in DEXTROSE 5%-WATER - 50 ML IVPB SCH ×3 (01:20→17:02)
[2018-07-22] MEDS: LACTATED RINGERS SOLUTION 1,000 ML IV SCH (01:20)
[2018-07-22] MEDS ORDERED: INSULIN (NOVOLOG) ASPART 100 UNITS/ML 10ML VIAL ONE ×2 (06:09→11:14)
[2018-07-22] MEDS: INSULIN SLIDING SCALE (NOVOLOG) 1 VIAL SQ SCH ×4 (06:24→21:13)
[2018-07-22 07:09] LABS: BASO % 0.5 % (0-2.0); EOS % 2.4 % (0-4.5); HEMATOCRIT 25.4 % (32.4-45.2); HEMOGLOBIN 8.4 GM/dL (10.7-15.3); LYMPH % 15.2 % (8-40); MCH 28.5 pg (25.7-33.7); MCHC 32.8 g/dl (32.0-36.0); MEAN CELL VOLUME 86.9 fl (80-96); MEAN PLT VOLUME 8.5 fl (7.5-11.1); NEUT % 74.9 % (42.8-82.8); RBC 2.93 M/mm3 (3.60-5.2)
[2018-07-22 07:38] LABS: BLOOD UREA NITROGEN 11.6 mg/dL (7-18); CALCIUM 8.7 mg/dL (8.5-10.1); CREATININE 0.8 mg/dL (0.55-1.3); MAGNESIUM 1.9 mg/dL (1.8-2.4); PHOSPHOROUS 3.6 mg/dL (2.5-4.9); POTASSIUM 4.6 mmol/L (3.5-5.1)
[2018-07-22] MEDS: CLOPIDOGREL BISULFATE 75 MG TABLET (FP) PO SCH (09:37)
[2018-07-22] MEDS: PANTOPRAZOLE 40 MG TABLET (FP) PO SCH (09:37)
[2018-07-22] MEDS: CARVEDILOL 6.25 MG TABLET (FP) PO SCH ×2 (09:37→21:14)
[2018-07-22] MEDS: FERROUS SO4 325 MG TABLET (FP) PO SCH ×2 (09:37→21:14)
[2018-07-22] MEDS: ASPIRIN 81 MG CHEWABLE TABLETS PO SCH (09:37)
[2018-07-22] MEDS: SENNOSIDES/DOCUSATE COMBO (SENNA PLUS) TABLET (UD) PO SCH ×2 (09:37→21:14)
[2018-07-22] MEDS: POLYETHYLENE GLYCOL 3350 119 GM BTL PO SCH (09:37)
[2018-07-22] MEDS: COLLAGENASE CLOSTRIDIUM HIST. 30 GRAMS TUBE TP SCH (09:44)
[2018-07-22] MEDS: ACETAMINOPHEN 325 MG TABLET (FP) PO PRN ×2 (11:19→20:14)
--- NOTE | 2018-07-22 11:36 | PN ---
Physical Exam: SUBJECTIVE: Patient seen and examined at bedside. No acute events overnight. Pt feels well, but would like to sit up in bed. Denies f/c, n/v, cp, sob, abd pain , urinary/bowel symptoms. OBJECTIVE: Vital Signs Temperature 98.2 F 07/22/18 07:39 Pulse Rate 81 07/22/18 07:39 Respiratory Rate 14 07/22/18 07:39 Blood Pressure 149/72 07/22/18 07:39 O2 Sat by Pulse Oximetry (%) 98 07/22/18 08:48 GENERAL: The patient is awake, alert, and fully oriented, in no acute distress. HEAD: Normal with no signs of trauma. NECK: Trachea midline, full range of motion, supple. LUNGS: Breath sounds equal, clear to auscultation bilaterally, HEART: Regular rate and rhythm, S1, S2 without murmur, rub or gallop. ABDOMEN: Soft, nontender, nondistended, normoactive bowel sounds, LOWER EXTREMITIES: 1+ dp pulses. s/p amputation of L 1st, 2nd, 5th toes. L forefoot w/gangrenous ulcer. L calcaneus ulcer, foul smelling, with purulence. CBC, BMP 07/22/18 06:15 07/22/18 06:15 Ambulatory Orders Aspirin [ASA -] 81 mg PO DAILY 05/03/17 Insulin Glargine,Hum.rec.anlog 22 units SQ ASDIR PRN 12/02/17 Insulin Glargine,Hum.rec.anlog [Basaglar Kwikpen U-100] 2 unit SQ HS 12/02/17 Collagenase Clostridium Hist. [Santyl] 1 applic TP DAILY #90 oint...g. 06/12/18 Carvedilol [Coreg -] 12.5 tab PO BID 07/03/18 Ascorbate Calcium [Vitamin C] 500 mg PO DAILY 07/18/18 Piperacillin/Tazob 3.375 gm [Zosyn 3.375GM Ivpb (Premix)] 3.375 gm IV Q8H #114 ivpb 07/21/18 Active Medications Acetaminophen (Tylenol -) 650 mg PO Q4H PRN PRN Reason: PAIN LEVEL 6-10 Last Admin: 07/22/18 11:19 Dose: 650 mg Aspirin (Asa -) 81 mg PO DAILY [facility] Last Admin: 07/22/18 09:37 Dose: 81 mg Carvedilol (Coreg -) 6.25 mg PO BID [facility] Last Admin: 07/22/18 09:37 Dose: 6.25 mg Clopidogrel Bisulfate (Plavix -) 75 mg PO DAILY [facility] Last Admin: 07/22/18 09:37 Dose: 75 mg Collagenase (Santyl -) 1 applic TP DAILY [facility]; Protocol Last Admin: 07/22/18 09:44 Dose: 1 applic Ferrous Sulfate (Feosol -) 325 mg PO BID [facility] Last Admin: 07/22/18 09:37 Dose: 325 mg Piperacillin Sod/Tazobactam (Sod 3.375 gm/ Dextrose) 50 mls @ 100 mls/hr IVPB Q8H-IV [facility]; Protocol Last Admin: 07/22/18 09:37 Dose: 100 mls/hr Insulin Aspart (Novolog Vial Sliding Scale -) 1 vial SQ ACHS [facility]; Protocol Last Admin: 07/22/18 11:16 Dose: 8 units Pantoprazole Sodium (Protonix -) 40 mg PO DAILY [facility] Last Admin: 07/22/18 09:37 Dose: 40 mg Polyethylene Glycol (Miralax (For Daily Use) -) 17 gm PO DAILY [facility] Last Admin: 07/22/18 09:37 Dose: 17 gm Senna/Docusate Sodium (Pericolace -) 1 tablet PO BID [facility] Last Admin: 07/22/18 09:37 Dose: 1 tablet ASSESSMENT/PLAN: 57F with a history of HTN, HLD, DM, PVD, femoral artery angioplasty, and L toe amputations who presents for wet gangrene. #Wet gangrene of left foot, s/p balloon with angioplasty POD #2 - patient seen by Dr. Jones - MRI: soft tissue edema of the foot, edema extends to the cortex - Wound cx +Pseudomonas, Klebsiella, Enterococcus - Per ID, cont Zosyn 3.375 gm IVPB Q8H (Day 3) for 6 weeks total - Awaiting PICC line and SNF placement - Per podiatry, needs outpatient follow up with Dr. Keene/Dr. Jones for debridement #Anemia, 2/2 to chronic disease; stable, no acute blood loss - chronic anemia at base line - normal transfusion guidelines, please give if below 7 - stool for occult blood - iron 24, TIBC 184, ferritin 403 - Outpatient follow up #HTN- Cont home meds: Carvedilol 12.5 BID, ASA 81 mg #DM - SS - A1C 10.6 - patient poorly controlled as an outpatient #Ppx -DVT: heparin TID -GI: protonix 40 daily FEN -d/c IVf -recheck lytes in AM -Diabetic/sodium-controlled diet Dispo: monitor on med-surg, f/u with vascular for management of foot Visit type - Emergency Visit Emergency Visit: Yes ED Registration Date: 07/18/18 Care time: The patient presented to the Emergency Department on the above date and was hospitalized for further evaluation of their emergent condition. - New Patient This patient is new to me today: Yes Date on this admission: 07/22/18 - Critical Care Critical Care patient: No
--- NOTE | 2018-07-22 12:13 | PN ---
Teaching Attending Note Name of Resident: Judit Umana ATTENDING PHYSICIAN STATEMENT I saw and evaluated the patient. I reviewed the resident's note and discussed the case with the resident. I agree with the resident's findings and plan as documented. SUBJECTIVE: No further fevers. Some ongoing L foot discomfort s/p Angio with balloon angioplasty. OBJECTIVE: Afebrile, Hemodynamically Stable Last Vital Signs Temp Pulse Resp BP Pulse Ox 98.2 F 81 14 149/72 98 07/22/18 07:39 07/22/18 07:39 07/22/18 07:39 07/22/18 07:39 07/22/18 08:48 Heart - S1, S2, RRR Lungs - Clear to auscultation Abdomen - soft, non-tender. Bowel Sounds normal. Extremities - L foot amputations dressed - 1st/2nd/5th toes, dorsal necrotic ulcer, calcaneal purulent and malodorous ulcer. Laboratory Results - last 24 hr 07/21/18 07/21/18 07/21/18 07:20 17:29 21:15 WBC RBC Hgb Hct MCV MCH MCHC RDW Plt Count 270 MPV Absolute Neuts (auto) Neutrophils % Lymphocytes % Monocytes % Eosinophils % Basophils % Nucleated RBC % Sodium Potassium Chloride Carbon Dioxide Anion Gap BUN Creatinine Est GFR (CKD-EPI)AfAm Est GFR (CKD-EPI)NonAf POC Glucometer 285 292 Random Glucose Calcium Phosphorus Magnesium 07/22/18 07/22/18 07/22/18 05:31 06:15 06:15 WBC 10.0 RBC 2.93 L Hgb 8.4 L Hct 25.4 L MCV 86.9 MCH 28.5 MCHC 32.8 RDW 15.0 Plt Count MPV 8.5 Absolute Neuts (auto) 7.5 Neutrophils % 74.9 Lymphocytes % 15.2 D Monocytes % 7.0 Eosinophils % 2.4 D Basophils % 0.5 Nucleated RBC % 0 Sodium 137 Potassium 4.6 Chloride 102 Carbon Dioxide 29 Anion Gap 6 L BUN 11.6 Creatinine 0.8 Est GFR (CKD-EPI)AfAm 95.52 Est GFR (CKD-EPI)NonAf 82.42 POC Glucometer 233 Random Glucose 218 H Calcium 8.7 Phosphorus 3.6 Magnesium 1.9 07/22/18 11:11 WBC RBC Hgb Hct MCV MCH MCHC RDW Plt Count MPV Absolute Neuts (auto) Neutrophils % Lymphocytes % Monocytes % Eosinophils % Basophils % Nucleated RBC % Sodium Potassium Chloride Carbon Dioxide Anion Gap BUN Creatinine Est GFR (CKD-EPI)AfAm Est GFR (CKD-EPI)NonAf POC Glucometer 281 Random Glucose Calcium Phosphorus Magnesium Current Medications Generic Name Dose Route Start Last Admin Trade Name Freq PRN Reason Stop Dose Admin Acetaminophen 650 mg 07/20/18 16:38 07/22/18 11:19 Tylenol - PO 650 mg Q4H PRN Administration PAIN LEVEL 6-10 Aspirin 81 mg 07/21/18 10:00 07/22/18 09:37 Asa - PO 81 mg DAILY [facility] Administration Carvedilol 6.25 mg 07/20/18 22:00 07/22/18 09:37 Coreg - PO 6.25 mg BID [facility] Administration Clopidogrel Bisulfate 75 mg 07/20/18 15:30 07/22/18 09:37 Plavix - PO 75 mg DAILY [facility] Administration Collagenase 1 applic 07/21/18 10:00 07/22/18 09:44 Santyl - TP 1 applic DAILY [facility] Administration Protocol Ferrous Sulfate 325 mg 07/21/18 22:00 07/22/18 09:37 Feosol - PO 325 mg BID [facility] Administration Piperacillin Sod/Tazobactam 50 mls @ 100 mls/hr 07/20/18 18:00 07/22/18 09:37 Sod 3.375 gm/ Dextrose IVPB 100 mls/hr Q8H-IV [facility] Administration Protocol Insulin Aspart 1 vial 07/20/18 17:15 07/22/18 11:16 Novolog Vial Sliding Scale - SQ 8 units ACHS [facility] Administration Protocol Pantoprazole Sodium 40 mg 07/21/18 10:00 07/22/18 09:37 Protonix - PO 40 mg DAILY [facility] Administration Polyethylene Glycol 17 gm 07/21/18 10:00 07/22/18 09:37 Miralax (For Daily Use) - PO 17 gm DAILY [facility] Administration Senna/Docusate Sodium 1 tablet 07/20/18 22:00 07/22/18 09:37 Pericolace - PO 1 tablet BID [facility] Administration ASSESSMENT AND PLAN: 57 year old female with history of HTN, HLD, DM 2, PVD, s/p Femoral artery angioplasty, s/p popliteal artery angioplasty, s/p left foot toe amputations, referred from wound care for worsening/infected foot ulcer. 1. L foot Infected Ulcer with underlying Osteomyelitis Fever resolved. s/p Angio/Balloon Angioplasty by Dr. Jones, Vascular Surgery Wound Cx - positive for Pseudomonas, Klebsiella, Enterococcus. MRI L foot - multiple areas of marrow edema suggestive of Osteomyelitis. Seen by Podiatry - for consideration of out-patient elective debridement Seen by ID - Continue Zosyn for 6 weeks as per ID For PICC and SNF placement. Out-patient follow up with Dr. Jones, Dr. Foley 2. DM 2, uncontrolled A1C 10.6 - resume home meds on discharge. Maintain on sliding scale Novolog. 3. HTN - Continue Coreg 4. Normocytic Anemia - Iron Deficiency. H/H 8.4/25.4 s/p 1 unit PRBCs, No evidence of acute blood loss Iron Sat 13 B12/Folate - 1546/36. Started on Ferrous Sulfate For out-patient follow up/work-up. Medically Stable for discharge to SNF on IV Abx s/p PICC
[2018-07-22 13:37] LABS: PLATELET COUNT 309 K/MM3 (134-434)
[2018-07-22] MEDS: HEPARIN NA (PORCINE) 5,000 UNITS/ML 1ML VIAL SQ SCH ×2 (15:05→21:14)
[2018-07-23] MEDS ORDERED: DEXTROSE 5%-WATER - 50 ML IVPB ONE ×3 (01:28→16:18)
[2018-07-23] MEDS ORDERED: PIPERACILLIN/TAZOBACTAM 3.375 GM VIAL IVPB ONE ×3 (01:28→16:17)
[2018-07-23] MEDS: PIPERACILLIN/TAZOB 3.375 GM 3.375 GM in DEXTROSE 5%-WATER - 50 ML IVPB SCH ×3 (02:28→17:10)
[2018-07-23] MEDS: ACETAMINOPHEN 325 MG TABLET (FP) PO PRN ×2 (03:15→21:54)
[2018-07-23] MEDS: HEPARIN NA (PORCINE) 5,000 UNITS/ML 1ML VIAL SQ SCH ×3 (06:26→21:54)
[2018-07-23] MEDS: INSULIN SLIDING SCALE (NOVOLOG) 1 VIAL SQ SCH ×4 (06:27→21:55)
[2018-07-23] MEDS: SENNOSIDES/DOCUSATE COMBO (SENNA PLUS) TABLET (UD) PO SCH ×2 (10:17→21:54)
[2018-07-23] MEDS: ASPIRIN 81 MG CHEWABLE TABLETS PO SCH (10:17)
[2018-07-23] MEDS: FERROUS SO4 325 MG TABLET (FP) PO SCH ×2 (10:17→21:53)
[2018-07-23] MEDS: CARVEDILOL 6.25 MG TABLET (FP) PO SCH ×2 (10:17→21:53)
[2018-07-23] MEDS: CLOPIDOGREL BISULFATE 75 MG TABLET (FP) PO SCH (10:17)
[2018-07-23] MEDS: COLLAGENASE CLOSTRIDIUM HIST. 30 GRAMS TUBE TP SCH (10:18)
[2018-07-23] MEDS: POLYETHYLENE GLYCOL 3350 119 GM BTL PO SCH (10:18)
[2018-07-23] MEDS: PANTOPRAZOLE 40 MG TABLET (FP) PO SCH (10:18)
--- NOTE | 2018-07-23 11:34 | PN ---
Progress Note (short form) - Note Progress Note: SUBJECTIVE: No further fevers. Some residual L foot discomfort s/p Angio with balloon angioplasty. OBJECTIVE: Afebrile, Hemodynamically Stable Last Vital Signs Temp Pulse Resp BP Pulse Ox 98.4 F 71 14 146/76 98 07/23/18 07:30 07/23/18 07:30 07/23/18 07:30 07/23/18 07:30 07/23/18 08:37 Heart - S1, S2, RRR Lungs - Clear to auscultation Abdomen - soft, non-tender. Bowel Sounds normal. Extremities - L foot amputations dressed - 1st/2nd/5th toes, dorsal necrotic ulcer, calcaneal purulent and malodorous ulcer. Laboratory Results - last 24 hr 07/18/18 07/22/18 07/22/18 10:35 06:15 16:17 Plt Count 309 POC Glucometer 191 Blood Type O POSITIVE Antibody Screen Negative Crossmatch See Detail 07/22/18 07/23/18 07/23/18 21:10 05:57 11:32 Plt Count POC Glucometer 337 215 264 Blood Type Antibody Screen Crossmatch Current Medications Generic Name Dose Route Start Last Admin Trade Name Freq PRN Reason Stop Dose Admin Acetaminophen 650 mg 07/20/18 16:38 07/23/18 03:15 Tylenol - PO 650 mg Q4H PRN Administration PAIN LEVEL 6-10 Aspirin 81 mg 07/21/18 10:00 07/23/18 10:17 Asa - PO 81 mg DAILY SEVERIANO Administration Carvedilol 6.25 mg 07/20/18 22:00 07/23/18 10:17 Coreg - PO 6.25 mg BID SEVERIANO Administration Clopidogrel Bisulfate 75 mg 07/20/18 15:30 07/23/18 10:17 Plavix - PO 75 mg DAILY SEVERIANO Administration Collagenase 1 applic 07/21/18 10:00 07/23/18 10:18 Santyl - TP 1 applic DAILY SEVERIANO Administration Protocol Ferrous Sulfate 325 mg 07/21/18 22:00 07/23/18 10:17 Feosol - PO 325 mg BID SEVERIANO Administration Heparin Sodium (Porcine) 5,000 unit 07/22/18 15:00 07/23/18 06:26 Heparin - SQ 5,000 unit TID SEVERIANO Administration Piperacillin Sod/Tazobactam 50 mls @ 100 mls/hr 07/20/18 18:00 07/23/18 10:18 Sod 3.375 gm/ Dextrose IVPB 100 mls/hr Q8H-IV SEVERIANO Administration Protocol Insulin Aspart 1 vial 07/20/18 17:15 07/23/18 11:33 Novolog Vial Sliding Scale - SQ 8 units ACHS SEVERIANO Administration Protocol Pantoprazole Sodium 40 mg 07/21/18 10:00 07/23/18 10:18 Protonix - PO 40 mg DAILY SEVERIANO Administration Polyethylene Glycol 17 gm 07/21/18 10:00 07/23/18 10:18 Miralax (For Daily Use) - PO 17 gm DAILY SEVERIANO Administration Senna/Docusate Sodium 1 tablet 07/20/18 22:00 07/23/18 10:17 Pericolace - PO 1 tablet BID SEVERIANO Administration ASSESSMENT AND PLAN: 57 year old female with history of HTN, HLD, DM 2, PVD, s/p Femoral artery angioplasty, s/p popliteal artery angioplasty, s/p left foot toe amputations, referred from wound care for worsening/infected foot ulcer. 1. L foot Infected Ulcer with underlying Osteomyelitis Fever resolved. s/p Angio/Balloon Angioplasty by Dr. Jones, Vascular Surgery Wound Cx - positive for Pseudomonas, Klebsiella, Enterococcus. MRI L foot - multiple areas of marrow edema suggestive of Osteomyelitis. Seen by Podiatry - for consideration of out-patient elective debridement Seen by ID - Continue Zosyn for 6 weeks as per ID For PICC and SNF placement 07/24/18 Out-patient follow up with Dr. Jones, Dr. Foley 2. DM 2, uncontrolled A1C 10.6 - resume oral anti-hyperglycemics on discharge. Maintain on sliding scale Novolog. 3. HTN - Continue Coreg 4. Normocytic Anemia - Iron Deficiency. H/H 8.4/25.4 s/p 1 unit PRBCs, No evidence of acute blood loss Iron Sat 13 B12/Folate - 1546/36. Continue Ferrous Sulfate For out-patient follow up/work-up. Medically Stable for discharge to SNF on IV Abx s/p PICC Visit type - Emergency Visit Emergency Visit: Yes ED Registration Date: 07/18/18 Care time: The patient presented to the Emergency Department on the above date and was hospitalized for further evaluation of their emergent condition. - New Patient This patient is new to me today: No - Critical Care Critical Care patient: No - Discharge Referral Referred to [facility] Med P.C.: No
[2018-07-23] MEDS ORDERED: INSULIN (NOVOLOG) ASPART 100 UNITS/ML 10ML VIAL ONE (21:44)
[2018-07-24] MEDS ORDERED: DEXTROSE 5%-WATER - 50 ML IVPB ONE ×3 (00:37→17:19)
[2018-07-24] MEDS ORDERED: PIPERACILLIN/TAZOBACTAM 3.375 GM VIAL IVPB ONE ×3 (00:37→17:19)
[2018-07-24] MEDS: PIPERACILLIN/TAZOB 3.375 GM 3.375 GM in DEXTROSE 5%-WATER - 50 ML IVPB SCH ×3 (02:45→17:22)
[2018-07-24] MEDS ORDERED: INSULIN (NOVOLOG) ASPART 100 UNITS/ML 10ML VIAL ONE ×3 (06:41→17:18)
[2018-07-24] MEDS: INSULIN SLIDING SCALE (NOVOLOG) 1 VIAL SQ SCH ×3 (06:43→17:15)
[2018-07-24] MEDS: HEPARIN NA (PORCINE) 5,000 UNITS/ML 1ML VIAL SQ SCH ×2 (06:44→13:52)
[2018-07-24 08:25] LABS: BASO % 1.1 % (0-2.0); EOS % 3.1 % (0-4.5); HEMATOCRIT 27.6 % (32.4-45.2); HEMOGLOBIN 9.1 GM/dL (10.7-15.3); LYMPH % 23.2 % (8-40); MCH 28.9 pg (25.7-33.7); MEAN CELL VOLUME 87.8 fl (80-96); MEAN PLT VOLUME 8.4 fl (7.5-11.1); MONO % 5.9 % (3.8-10.2); NEUT % 66.7 % (42.8-82.8); PLATELET COUNT 313 K/MM3 (134-434); RBC 3.15 M/mm3 (3.60-5.2); RDW 15.1 % (11.6-15.6); WHITE BLOOD COUNT 9.1 K/mm3 (4.0-10.0)
[2018-07-24 08:39] LABS: INR 1.11 (0.83-1.09); PROTHROMBIN TIME (PATIENT) 13.1 SEC (9.7-13.0)
[2018-07-24] MEDS: PANTOPRAZOLE 40 MG TABLET (FP) PO SCH (09:24)
[2018-07-24] MEDS: FERROUS SO4 325 MG TABLET (FP) PO SCH (09:24)
[2018-07-24] MEDS: CLOPIDOGREL BISULFATE 75 MG TABLET (FP) PO SCH (09:24)
[2018-07-24] MEDS: CARVEDILOL 6.25 MG TABLET (FP) PO SCH (09:24)
[2018-07-24] MEDS: ASPIRIN 81 MG CHEWABLE TABLETS PO SCH (09:24)
[2018-07-24] MEDS: SENNOSIDES/DOCUSATE COMBO (SENNA PLUS) TABLET (UD) PO SCH (09:25)
[2018-07-24] MEDS: POLYETHYLENE GLYCOL 3350 119 GM BTL PO SCH (09:25)
[2018-07-24] MEDS: COLLAGENASE CLOSTRIDIUM HIST. 30 GRAMS TUBE TP SCH (09:28)
--- NOTE | 2018-07-24 10:33 | PN ---
Physical Exam: SUBJECTIVE: Patient seen this morning and without complaints. Patient to go to [facility] today. OBJECTIVE: Vital Signs Temperature 98.1 F 07/24/18 09:00 Pulse Rate 74 07/24/18 09:00 Respiratory Rate 18 07/24/18 09:00 Blood Pressure 150/71 07/24/18 09:00 O2 Sat by Pulse Oximetry (%) 98 07/23/18 21:00 GENERAL: The patient is awake, alert, and fully oriented, in no acute distress. HEAD: Normal with no signs of trauma. NECK: Trachea midline, full range of motion, supple. LUNGS: Breath sounds equal, clear to auscultation bilaterally, HEART: Regular rate and rhythm, S1, S2 without murmur, rub or gallop. ABDOMEN: Soft, nontender, nondistended, normoactive bowel sounds, LOWER EXTREMITIES: 1+ dp pulses. s/p amputation of L 1st, 2nd, 5th toes. L forefoot w/gangrenous ulcer. L calcaneus ulcer, foul smelling, with purulence. CBCD WBC 9.1 K/mm3 (4.0-10.0) 07/24/18 08:10 RBC 3.15 M/mm3 (3.60-5.2) L 07/24/18 08:10 Hgb 9.1 GM/dL (10.7-15.3) L 07/24/18 08:10 Hct 27.6 % (32.4-45.2) L 07/24/18 08:10 MCV 87.8 fl (80-96) 07/24/18 08:10 MCHC 33.0 g/dl (32.0-36.0) 07/24/18 08:10 RDW 15.1 % (11.6-15.6) 07/24/18 08:10 Plt Count 309 K/MM3 (134-434) 07/22/18 06:15 MPV 8.4 fl (7.5-11.1) 07/24/18 08:10 CMP Sodium 137 mmol/L (136-145) 07/22/18 06:15 Potassium 4.6 mmol/L (3.5-5.1) 07/22/18 06:15 Chloride 102 mmol/L (98-107) 07/22/18 06:15 Carbon Dioxide 29 mmol/L (21-32) 07/22/18 06:15 Anion Gap 6 MMOL/L (8-16) L 07/22/18 06:15 BUN 11.6 mg/dL (7-18) 07/22/18 06:15 Creatinine 0.8 mg/dL (0.55-1.3) 07/22/18 06:15 Calcium 8.7 mg/dL (8.5-10.1) 07/22/18 06:15 Total Bilirubin 0.6 mg/dL (0.2-1) 07/21/18 07:20 AST 12 U/L (15-37) L 07/21/18 07:20 ALT 15 U/L (13-61) 07/21/18 07:20 Alkaline Phosphatase 87 U/L (45-117) 07/21/18 07:20 Total Protein 6.5 g/dl (6.4-8.2) 07/21/18 07:20 Albumin 2.4 g/dl (3.4-5.0) L 07/21/18 07:20 Active Medications Acetaminophen (Tylenol -) 650 mg PO Q4H PRN PRN Reason: PAIN LEVEL 6-10 Last Admin: 07/23/18 21:54 Dose: 650 mg Aspirin (Asa -) 81 mg PO DAILY [facility] Last Admin: 07/24/18 09:24 Dose: 81 mg Carvedilol (Coreg -) 6.25 mg PO BID [facility] Last Admin: 07/24/18 09:24 Dose: 6.25 mg Clopidogrel Bisulfate (Plavix -) 75 mg PO DAILY [facility] Last Admin: 07/24/18 09:24 Dose: 75 mg Collagenase (Santyl -) 1 applic TP DAILY [facility]; Protocol Last Admin: 07/24/18 09:28 Dose: 1 applic Ferrous Sulfate (Feosol -) 325 mg PO BID [facility] Last Admin: 07/24/18 09:24 Dose: 325 mg Heparin Sodium (Porcine) (Heparin -) 5,000 unit SQ TID [facility] Last Admin: 07/24/18 06:44 Dose: 5,000 unit Piperacillin Sod/Tazobactam (Sod 3.375 gm/ Dextrose) 50 mls @ 100 mls/hr IVPB Q8H-IV [facility]; Protocol Last Admin: 07/24/18 09:25 Dose: 100 mls/hr Insulin Aspart (Novolog Vial Sliding Scale -) 1 vial SQ ACHS [facility]; Protocol Last Admin: 07/24/18 06:43 Dose: 4 units Pantoprazole Sodium (Protonix -) 40 mg PO DAILY [facility] Last Admin: 07/24/18 09:24 Dose: 40 mg Polyethylene Glycol (Miralax (For Daily Use) -) 17 gm PO DAILY [facility] Last Admin: 07/24/18 09:25 Dose: Not Given Senna/Docusate Sodium (Pericolace -) 1 tablet PO BID [facility] Last Admin: 07/24/18 09:25 Dose: Not Given ASSESSMENT/PLAN: Patient is a 57 y/o female with a history of HTN, HLD, DM, PVD, femoral artery angioplasty, and L toe amputations who presents for wet gangrene. #Wet gangrene of left foot - patient seen by Dr. Jones - patient will undergo angioplasty today, f/u results - MRI: soft tissue edema of the foot, edema extends to the cortex - wound cx growing multiple organisms - On Zosyn and Vancomycin ( day 3), hx of MRSA - f/u consult with Dr Foley #anemia, 2/2 to chronic disease - chronic anemia at base line - received 1 unit and responded - normal transfusion guidelines, please give if below 7 - stool for occult blood - iron 24, TIBC 184, ferritin 403 #HTN - continue carvedilol 12.5 BID - continue ASA 81 mg #DM - SS - A1C 10.6 - patient poorly controlled as an outpatient #DVT ppx - heparin TID #GI ppx - protonix 40 daily FEN - NPO before procedures - Dispo: patient DC today Visit type - Emergency Visit Emergency Visit: No - New Patient This patient is new to me today: No - Critical Care Critical Care patient: No
[2018-07-24 10:53] LABS: BLOOD UREA NITROGEN 14.4 mg/dL (7-18); CALCIUM 9.3 mg/dL (8.5-10.1); CREATININE 0.9 mg/dL (0.55-1.3); POTASSIUM 4.4 mmol/L (3.5-5.1)
--- NOTE | 2018-07-24 11:19 | PN ---
Teaching Attending Note Name of Resident: Tabatha Neal ATTENDING PHYSICIAN STATEMENT I saw and evaluated the patient. I reviewed the resident's note and discussed the case with the resident. I agree with the resident's findings and plan as documented. SUBJECTIVE: No further fevers. Some residual L foot discomfort s/p Angio with balloon angioplasty. OBJECTIVE: Afebrile, Hemodynamically Stable Last Vital Signs Temp Pulse Resp BP Pulse Ox 98.1 F 74 18 150/71 98 07/24/18 09:00 07/24/18 09:00 07/24/18 09:00 07/24/18 09:00 07/23/18 21:00 Heart - S1, S2, RRR Lungs - Clear to auscultation Abdomen - soft, non-tender. Bowel Sounds normal. Extremities - L foot amputations dressed - 1st/2nd/5th toes, dorsal necrotic ulcer, calcaneal purulent and malodorous ulcer. Laboratory Results - last 24 hr 07/23/18 07/23/18 07/23/18 11:32 16:24 21:51 WBC RBC Hgb Hct MCV MCH MCHC RDW Plt Count MPV Absolute Neuts (auto) Neutrophils % Lymphocytes % Monocytes % Eosinophils % Basophils % Nucleated RBC % PT with INR INR Sodium Potassium Chloride Carbon Dioxide Anion Gap BUN Creatinine Est GFR (CKD-EPI)AfAm Est GFR (CKD-EPI)NonAf POC Glucometer 264 243 234 Random Glucose Calcium 07/24/18 07/24/18 07/24/18 06:18 08:10 08:10 WBC 9.1 RBC 3.15 L Hgb 9.1 L Hct 27.6 L MCV 87.8 MCH 28.9 MCHC 33.0 RDW 15.1 Plt Count 313 MPV 8.4 Absolute Neuts (auto) 6.0 Neutrophils % 66.7 Lymphocytes % 23.2 D Monocytes % 5.9 Eosinophils % 3.1 Basophils % 1.1 Nucleated RBC % 0 PT with INR INR Sodium 138 Potassium 4.4 Chloride 101 Carbon Dioxide 29 Anion Gap 8 BUN 14.4 Creatinine 0.9 Est GFR (CKD-EPI)AfAm 82.26 Est GFR (CKD-EPI)NonAf 70.98 POC Glucometer 196 Random Glucose 189 H Calcium 9.3 07/24/18 08:10 WBC RBC Hgb Hct MCV MCH MCHC RDW Plt Count MPV Absolute Neuts (auto) Neutrophils % Lymphocytes % Monocytes % Eosinophils % Basophils % Nucleated RBC % PT with INR 13.10 H INR 1.11 H Sodium Potassium Chloride Carbon Dioxide Anion Gap BUN Creatinine Est GFR (CKD-EPI)AfAm Est GFR (CKD-EPI)NonAf POC Glucometer Random Glucose Calcium Current Medications Generic Name Dose Route Start Last Admin Trade Name Freq PRN Reason Stop Dose Admin Acetaminophen 650 mg 07/20/18 16:38 07/23/18 21:54 Tylenol - PO 650 mg Q4H PRN Administration PAIN LEVEL 6-10 Aspirin 81 mg 07/21/18 10:00 07/24/18 09:24 Asa - PO 81 mg DAILY SEVERIANO Administration Carvedilol 6.25 mg 07/20/18 22:00 07/24/18 09:24 Coreg - PO 6.25 mg BID SEVERIANO Administration Clopidogrel Bisulfate 75 mg 07/20/18 15:30 07/24/18 09:24 Plavix - PO 75 mg DAILY SEVERIANO Administration Collagenase 1 applic 07/21/18 10:00 07/24/18 09:28 Santyl - TP 1 applic DAILY SEVERIANO Administration Protocol Ferrous Sulfate 325 mg 07/21/18 22:00 07/24/18 09:24 Feosol - PO 325 mg BID SEVERIANO Administration Heparin Sodium (Porcine) 5,000 unit 07/22/18 15:00 07/24/18 06:44 Heparin - SQ 5,000 unit TID SEVERIANO Administration Piperacillin Sod/Tazobactam 50 mls @ 100 mls/hr 07/20/18 18:00 07/24/18 09:25 Sod 3.375 gm/ Dextrose IVPB 100 mls/hr Q8H-IV SEVERIANO Administration Protocol Insulin Aspart 1 vial 07/20/18 17:15 07/24/18 06:43 Novolog Vial Sliding Scale - SQ 4 units ACHS SEVERIANO Administration Protocol Pantoprazole Sodium 40 mg 07/21/18 10:00 07/24/18 09:24 Protonix - PO 40 mg DAILY SEVERINAO Administration Polyethylene Glycol 17 gm 07/21/18 10:00 07/24/18 09:25 Miralax (For Daily Use) - PO Not Given DAILY SEVERIANO Senna/Docusate Sodium 1 tablet 07/20/18 22:00 07/24/18 09:25 Pericolace - PO Not Given BID SEVERIANO ASSESSMENT AND PLAN: 57 year old female with history of HTN, HLD, DM 2, PVD, s/p Femoral artery angioplasty, s/p popliteal artery angioplasty, s/p left foot toe amputations, referred from wound care for worsening/infected foot ulcer. 1. L foot Infected Ulcerations with underlying Osteomyelitis Fever resolved. s/p Angio/Balloon Angioplasty by Dr. Jones, Vascular Surgery Wound Cx - positive for Pseudomonas, Klebsiella, Enterococcus. MRI L foot - multiple areas of marrow edema suggestive of Osteomyelitis. Seen by Podiatry - for consideration of out-patient elective debridement Seen by ID - Continue Zosyn for 6 weeks as per ID For PICC and SNF placement today Out-patient follow up with Dr. Jones, Dr. Foley 2. DM 2, uncontrolled A1C 10.6 - resume oral anti-hyperglycemics on discharge with novolog sliding scale coverage. 3. HTN - Continue Coreg 4. Normocytic Anemia - Iron Deficiency. H/H 9.1 s/p 1 unit PRBCs, No evidence of acute blood loss Iron Sat 13 B12/Folate - 1546/36. Continue Ferrous Sulfate For out-patient follow up/work-up. Medically Stable for discharge to SNF on IV Abx s/p PICC
[2018-07-24 14:43] VITALS: TEMP 98.3
[2018-07-24 18:12] VITALS: BP 120/60; PULSE 70
== END 2018-07-24 19:28 | DRG 181 ==
LOC: JER 09:04 → JERBED 10:01 → J6S 15:11
PROC: B40DYZZ Plain Radiography of Aorta and Bilateral Lower Extremity Arteries using Other Contrast (ICD-10-PCS; 2018-07-20)
PROC: 047L36Z Dilation of Left Femoral Artery with Three Drug-eluting Intraluminal Devices, Percutaneous Approach (ICD-10-PCS; principal; 2018-07-20 15:45)
PROC: 02HV33Z Insertion of Infusion Device into Superior Vena Cava, Percutaneous Approach (ICD-10-PCS; 2018-07-24)
DX: E11.52 Type 2 diabetes mellitus with diabetic peripheral angiopathy with gangrene (principal); I96 Gangrene, not elsewhere classified; I10 Essential (primary) hypertension; E78.5 Hyperlipidemia, unspecified; R50.9 Fever, unspecified; D50.9 Iron deficiency anemia, unspecified; E11.65 Type 2 diabetes mellitus with hyperglycemia; E11.621 Type 2 diabetes mellitus with foot ulcer; L97.528 Non-pressure chronic ulcer of other part of left foot with other specified severity; E11.69 Type 2 diabetes mellitus with other specified complication; L08.89 Other specified local infections of the skin and subcutaneous tissue; B96.5 Pseudomonas (aeruginosa) (mallei) (pseudomallei) as the cause of diseases classified elsewhere; B95.2 Enterococcus as the cause of diseases classified elsewhere; B96.1 Klebsiella pneumoniae [K. pneumoniae] as the cause of diseases classified elsewhere; M86.8X7 Other osteomyelitis, ankle and foot; Z89.432 Acquired absence of left foot; Z86.14 Personal history of Methicillin resistant Staphylococcus aureus infection; Z87.891 Personal history of nicotine dependence; Z89.422 Acquired absence of other left toe(s)
CPT/HCPCS: 36415; 36430; 36511; 36569; 71046-TC-FY; 73630-TC-LT; 73718-TC-LT; 76000-TC-FY; 77001-TC-FY; 80048; 80053; 82607; 82728; 82746; 82962; 83036; 83540; 83550; 83735; 84100; 84484; 85025; 85027; 85610; 85651; 86140; 86850; 86900; 86901; 86922; 87040; 87070; 87186; 87205; 93005; 93010; 94010; 94760; 97116-GP; 97161-GP; 99283-25; C1751; J1644; P9038; P9058

== ENCOUNTER 2018-10-24 16:29 | Inpatient (IN) | payer OTHER ==
--- NOTE | 2018-10-24 17:11 | PDOC ---
Rapid Medical Evaluation Chief Complaint: Wound Time Seen by Provider: 10/24/18 17:02 Medical Evaluation: Allergies Allergy/AdvReac Type Severity Reaction Status Date / Time Iodinated Contrast Media Allergy Verified 10/24/18 17:02 [Iodinated Contrast- Oral and IV Dye] Vital Signs Temp Pulse Resp BP Pulse Ox 98.1 F 74 16 149/56 L 99 10/24/18 16:58 10/24/18 16:58 10/24/18 16:58 10/24/18 16:58 10/24/18 16:58 10/24/18 17:09 The patient presents with a chief complaint of: rt 4th digit nonhealing wound, diabetic, sent by [facility] for admission and iv abx I have performed a brief in-person evaluation of this patient. Pertinent physical exam findings: + eschgar to distal aspect of finger surrounding skin erythematous I have ordered the following: labs, iv, sx consult The patient will proceed to the ED for further evaluation. Discharge Disposition - Diagnosis Wound, open, finger - Discharge Dispostion Condition at time of disposition: Stable - Referrals - Patient Instructions - Post Discharge Activity
--- NOTE | 2018-10-24 17:30 | CONSULT ---
Consult Consult Specialty:: Hand and Microsurgery Reason for Consultation:: right ring finger infection - History of Present Illness Chief Complaint: right ring finger infection History of Present Illness: 58yo RHD female PMH HTN, HLD, Uncontrolled DM, PVD with Femoral artery DCP angioplasty, popliteal artery angioplasty, left toe amputations, hyperbarics, hx of MRSA, was sent to ED with indolent and worsening right ring finger paronychia which we have been treating in the wound care center. She has the1 incisions and drainge procedures one by Dr. Jones and the other by Dr. Olvera over the course of 4 week. She grew MRSA from woound but has not had significant improvement in the infection. She performs "self-care" with manual rupture, and manual expression of pus despite being warned against such activities. She says the wounds have been draining, foul smelling, and painful in the past 4 weeks. She denies fever and chills. She was sent to ED for admission so she could be assessed by ID for antibiotic regimen, Medicine glycemic control and lower extremity workup, and hand surgery. Patient currently denies pain, chest pain, sob, nausea, vomiting, fevers, chills, sob, urinary changes, bowel changes. We were asked to assess. - History Source History Provided By: Patient, Medical Record Limitations to Obtaining History: No Limitations - Past Medical History Cardio/Vascular: Yes: HTN, Hyperlipdemia ...LMP: 02/15/15 Endocrine: Yes: Diabetes Mellitus - Past Surgical History Past Surgical History: Yes: Amputation, Bypass - Alcohol/Substance Use Hx Alcohol Use: No - Smoking History Smoking history: Never smoked Have you smoked in the past 12 months: No If you are a former smoker, when did you quit?: 2000 - Social History Usual Living Arrangement: Alone ADL: Independent History of Recent Travel: No Home Medications - Allergies Allergies/Adverse Reactions: Allergies Allergy/AdvReac Type Severity Reaction Status Date / Time Iodinated Contrast Media Allergy Verified 10/24/18 17:02 [Iodinated Contrast- Oral and IV Dye] - Home Medications Home Medications: Ambulatory Orders Aspirin [ASA -] 81 mg PO DAILY 05/03/17 Insulin Glargine,Hum.rec.anlog [Basaglar Kwikpen U-100] 22 unit SQ DAILY PRN Collagenase Clostridium Hist. [Santyl] 1 applic TP DAILY #90 oint...g. 06/12/18 Carvedilol [Coreg -] 12.5 tab PO BID 07/03/18 Acetaminophen [Tylenol] 650 mg PO Q6H PRN 08/15/18 Insulin Lispro [Admelog] 100 unit SQ TID PRN 08/15/18 Basaglar Kwikpen U-100 22 units SQ HS 08/22/18 Clopidogrel 75 mg PO DAILY 08/22/18 Gentamicin 0.1% Ointment [Garamycin 0.1% Ointment -] 1 applic TP DAILY 09/05/18 Losartan Potassium [Cozaar] 25 mg PO DAILY 09/05/18 Multivitamin [Multiple Vitamins] 1 tab PO DAILY 10/03/18 Sulfamethoxazole/Trimethoprim [Bactrim Ds -] 1 tab PO BID #14 tablet 10/17/18 Ascorbate Calcium [Vitamin C] 500 mg PO DAILY 10/25/18 Blood Sugar Diagnostic [Freestyle Insulinx Test Strips] 1 each TP DAILY Insulin Lispro [Admelog] 12 units SQ DAILY 10/25/18 Review of Systems - Review of Systems Constitutional: denies: Chills, Fever Eyes: denies: Blurred Vision, Recent Change in Vision HENT: denies: Throat Pain, Toothache Neck: denies: Pain on Movement, Tenderness Cardiovascular: denies: Chest Pain, Palpitations Respiratory: denies: Cough, SOB Gastrointestinal: denies: Abdominal Pain, Bloating, Constipation Genitourinary: denies: Burning, Discharge Breasts: reports: No Symptoms Reported. denies: Pain Musculoskeletal: reports: Joint Swelling. denies: Crepitus, Muscle Pain Integumentary: denies: Lesions, Rash Neurological: denies: Seizure, Syncope Endocrine: denies: Unexplained Weight Gain, Unexplained Weight Loss Hematology/Lymphatic: denies: Easily Bruised, Excessive Bleeding Psychiatric: reports: Anxiety. denies: Depression Physical Exam Vital Signs: Vital Signs Temperature 98.1 F 10/24/18 16:58 Pulse Rate 74 10/24/18 16:58 Respiratory Rate 16 10/24/18 16:58 Blood Pressure 149/56 L 10/24/18 16:58 O2 Sat by Pulse Oximetry (%) 99 10/24/18 16:58 Constitutional: Yes: Well Nourished, No Distress, Anxious, Obese Eyes: Yes: Conjunctiva Clear, EOM Intact HENT: Yes: Atraumatic, Normocephalic Neck: Yes: Supple, Trachea Midline Cardiovascular: Yes: Regular Rate and Rhythm, S1, S2 Respiratory: Yes: Regular, CTA Bilaterally Gastrointestinal: Yes: Normal Bowel Sounds, Soft, Abdomen, Obese. No: Tenderness ...Rectal Exam: Yes: Deferred Renal/: No: CVA Tenderness - Left, CVA Tenderness - Right Breast(s): No: Mass, Skin Changes Musculoskeletal: Yes: Joint Swelling (right ring finger DIP and adjaccent to nail plate) Extremities: Yes: Erythema (Right ring finger tip). No: Cool, Cyanosis Edema: No Edema: RUE: 1+ (right ring finger tip) Peripheral Pulses WNL: Yes Integumentary: Yes: Erythema Wound/Incision: Yes: Draining, Unapproximated Neurological: Yes: Alert, Oriented Psychiatric: Yes: Alert, Oriented Problem List - Problems (1) Paronychia of right ring finger Assessment/Plan: 58yo RHD female with right ring finger chronic paronychia, possible osteomyelitis of distal pahalanx Bedside I&D procedure IV antibotiocs ID consult glycemic control local wound care will follow Code(s): L03.011 - CELLULITIS OF RIGHT FINGER (2) IDDM (insulin dependent diabetes mellitus) Code(s): E11.9 - TYPE 2 DIABETES MELLITUS WITHOUT COMPLICATIONS; Z79.4 - SERVICES PROGRAM MANAGER (CURRENT) USE OF INSULIN (3) Paronychia Code(s): RYH3700 - (4) HTN (hypertension) Code(s): I10 - ESSENTIAL (PRIMARY) HYPERTENSION Qualifiers: Hypertension type: essential hypertension Qualified Code(s): I10 - Essential (primary) hypertension (5) Osteomyelitis Code(s): M86.9 - OSTEOMYELITIS, UNSPECIFIED Qualifiers: Osteomyelitis type: other chronic Osteomyelitis location: hand Laterality : right Qualified Code(s): M86.641 - Other chronic osteomyelitis, right hand (6) PAD (peripheral artery disease) Code(s): I73.9 - PERIPHERAL VASCULAR DISEASE, UNSPECIFIED
[2018-10-24] MEDS ORDERED: PIPERACILLIN/TAZOB 3.375 GM 3.375 GM/50 ML BAG IVPB ONE (17:38)
[2018-10-24] MEDS ORDERED: VANCOMYCIN 1 GRAM (PRE-DOCKED) 1,000 MG/250 ML BAG IVPB ONE (17:38)
--- NOTE | 2018-10-24 18:05 | PDOC ---
History of Present Illness - General Chief Complaint: Wound Stated Complaint: RT RING FINGER INFECTION Time Seen by Provider: 10/24/18 17:02 History Source: Patient - History of Present Illness Initial Comments: 10/24/18 18:06 58 y/o/f here for a nonhealing paronychia on her right 4th digit for the last 4 weeks. Patient states she was biting her nails when she bit off some of the skin and had started to pain and swelling of the finger. She is followed by Dr. Olvera in the wound care clinic at [facility] and has been prescribed abx for the wound. She states that at home she places warm compresses on the wound and drains it herself, she has had purulent discharge. She states she is still on antibiotics started by Dr. Olvera but does not recall the name of her medications. She was seen upstairs in the wound care clinic today and sent down for admission and treatment. PMHx: DM, HTN, gangrene of both feet s/p amputations SHx: bypass in left leg Social: denies alcohol and tobacco use PCP: Dr. Yahir Lloyd Past History - Past Medical History Allergies/Adverse Reactions: Allergies Allergy/AdvReac Type Severity Reaction Status Date / Time Iodinated Contrast Media Allergy Verified 10/24/18 17:02 [Iodinated Contrast- Oral and IV Dye] Home Medications: Ambulatory Orders Aspirin [ASA -] 81 mg PO DAILY 05/03/17 Insulin Glargine,Hum.rec.anlog [Basaglar Kwikpen U-100] 26 unit SQ HS 12/02/17 Collagenase Clostridium Hist. [Santyl] 1 applic TP DAILY #90 oint...g. 06/12/18 Carvedilol [Coreg -] 12.5 tab PO BID 07/03/18 Acetaminophen [Tylenol] 650 mg PO Q6H PRN 08/15/18 Insulin Lispro [Admelog] 100 unit SQ TID PRN 08/15/18 Basaglar Kwikpen U-100 30 units SCJ HS 08/22/18 Clopidogrel 75 mg PO DAILY 08/22/18 Gentamicin 0.1% Ointment [Garamycin 0.1% Ointment -] 1 applic TP DAILY 09/05/18 Losartan Potassium [Cozaar] 25 mg PO DAILY 09/05/18 Multivitamin [Multiple Vitamins] 1 tab PO DAILY 10/03/18 Sulfamethoxazole/Trimethoprim [Bactrim Ds -] 1 tab PO BID #14 tablet 10/17/18 Anemia: Yes Asthma: No Cancer: Yes (uterus cone biopsy freezing) Cardiac Disorders: Yes CVA: Yes (patient thinks she had a stroke in the past) COPD: No CHF: Yes Dementia: No Diabetes: Yes GI Disorders: No Disorders: No HTN: Yes Hypercholesterolemia: Yes Liver Disease: No Seizures: No Thyroid Disease: No - Surgical History Abdominal Surgery: No Appendectomy: No Cardiac Surgery: No Cholecystectomy: No Lung Surgery: No Neurologic Surgery: No Orthopedic Surgery: Yes (amp left great toe,2nd toe, 5th toe) - Immunization History Immunization Up to Date: Yes - Suicide/Smoking/Psychosocial Hx Smoking History: Never smoked Have you smoked in the past 12 months: No If you are a former smoker, when did you quit?: 2000 Hx Alcohol Use: No Drug/Substance Use Hx: No Substance Use Type: None Hx Substance Use Treatment: No Review of Systems - Review of Systems Constitutional: Yes: Chills. No: Fever HEENTM: No: Nose Congestion Respiratory: No: Cough, Shortness of Breath Cardiac (ROS): No: Chest Pain, Lightheadedness ABD/GI: No: Diarrhea, Nausea, Vomiting : No: Dysuria, Hematuria Musculoskeletal: Yes: Other (right 4th digit). No: Back Pain Integumentary: Yes: Other (swelling of right 4th digit) Neurological: No: Headache Psychiatric: No: Anxiety Endocrine: No: Excessive Sweating *Physical Exam - Vital Signs Last Vital Signs Temp Pulse Resp BP Pulse Ox 98.1 F 74 16 149/56 L 99 10/24/18 16:58 10/24/18 16:58 10/24/18 16:58 10/24/18 16:58 10/24/18 16:58 - Physical Exam General Appearance: Yes: Nourished, Appropriately Dressed HEENT: positive: EOMI Neck: positive: Trachea midline, Supple Respiratory/Chest: positive: Lungs Clear, Normal Breath Sounds. negative: Chest Tender, Accessory Muscle Use Cardiovascular: positive: Regular Rhythm, Regular Rate, S1, S2 Gastrointestinal/Abdominal: positive: Normal Bowel Sounds, Soft. negative: Tender Extremity: positive: Normal Capillary Refill, Swelling (2+ non pitting edema of left leg up the knee) Integumentary: positive: Normal Color, Other (swelling and erythema around nail bed of right 4th digit with eschar over nail ) Neurologic: positive: Fully Oriented, Alert, Motor Strength 5/5, Other. negative: Sensory Deficit ED Treatment Course - LABORATORY CBC & Chemistry Diagram: 10/24/18 18:44 10/24/18 17:22 Medical Decision Making - Medical Decision Making 10/24/18 18:19 58 y/o/f here for a wound on her right 4th digit for the last 4 weeks that has failed outpatient treatment. Patient states she was biting her nails when she bit off some of the skin and had started to pain and swelling of the finger. She is followed by Dr. Olvera in the wound care clinic at [facility] and has been prescribed abx for the wound. Patient was seen by Dr. Olvera today at the wound care clinic and sent to ED for admission so she could be assessed by ID for antibiotic regimen, Medicine glycemic control and lower extremity workup, and hand surgery. Labs and abx ordered. 10/24/18 18:47 Dr. Olvera performed ID in patients room. Patient admitted under Dr. White. *DC/Admit/Observation/Transfer Diagnosis at time of Disposition: Wound, open, finger - Referrals - Patient Instructions - Post Discharge Activity
--- NOTE | 2018-10-24 18:20 | PDOC ---
Attending Attestation - Resident Resident Name: Souleymane Harper S - ED Attending Attestation I have performed the following: I have examined & evaluated the patient, The case was reviewed & discussed with the resident, I agree w/resident's findings & plan, Exceptions are as noted - HPI HPI: 10/24/18 18:20 Reviewed Residents HPI - Physicial Exam PE: 10/24/18 18:20 Reviewed Residents PE - Medical Decision Making 10/24/18 18:21 58 years old presents to the ED for nonhealing wound to her right fourth digit here for surgical management and IV antibiotics Has been following with wound clinic and has failed outpatient antibiotic outpatient management.
[2018-10-24] MEDS: PIPERACILLIN/TAZOB 3.375 GM 3.375 GM in DEXTROSE 5%-WATER - 50 ML IVPB SCH (19:00)
[2018-10-24] MEDS: VANCOMYCIN 1 GRAM (PRE-DOCKED) 1,000 MG/250 ML BAG IVPB SCH (19:11)
[2018-10-24 19:34] LABS: MCHC 32.9 g/dl (32.0-36.0); MEAN PLT VOLUME 9.2 fl (7.5-11.1); WHITE BLOOD COUNT 8.7 K/mm3 (4.0-10.0)
[2018-10-24 19:36] LABS: BASO % 0.7 % (0-2.0); EOS % 4.2 % (0-4.5); HEMATOCRIT 33.6 % (32.4-45.2); LYMPH % 31.8 % (8-40); MONO % 7.6 % (3.8-10.2); NEUT % 55.7 % (42.8-82.8); PLATELET COUNT 307 K/MM3 (134-434); RBC 3.81 M/mm3 (3.60-5.2)
[2018-10-24 19:37] LABS: EPI CELLS 0.5 /HPF (0-5/HPF); HYALINE CASTS 9 /lpf (0-8); URINE APPEARANCE TURBID; URINE BACTERIA 6963.8 /hpf (NEGATIVE); URINE BILIRUBIN NEGATIVE (NEGATIVE); URINE COLOR YELLOW; URINE GLUCOSE (UA) NEGATIVE (NEGATIVE); URINE KETONE NEGATIVE (NEGATIVE); URINE LEUK ESTERASE 2+ (NEGATIVE); URINE NITRITE NEGATIVE (NEGATIVE); URINE PROTEIN TRACE (NEGATIVE); URINE RBC 1 /hpf (0-4); URINE UROBILINOGEN 0.2 mg/dL (0.2-1.0); URINE WBC 39 /hpf (0-5)
[2018-10-24 20:16] LABS: ALBUMIN 3.5 g/dl (3.4-5.0); BILIRUBIN,TOTAL 0.4 mg/dL (0.2-1); BLOOD UREA NITROGEN 28.6 mg/dL (7-18); CALCIUM 9.7 mg/dL (8.5-10.1); CREATININE 1.3 mg/dL (0.55-1.3); POTASSIUM 5.5 mmol/L (3.5-5.1); TOT PROT 8.5 g/dl (6.4-8.2)
[2018-10-24] MEDS: SODIUM CHLORIDE 1,000 ML IV SCH (23:00)
[2018-10-24] MEDS: INSULIN SLIDING SCALE (NOVOLOG) 1 VIAL SQ SCH (23:00)
--- NOTE | 2018-10-25 00:19 | PN ---
Teaching Attending Note Name of Resident: Janna Nix ATTENDING PHYSICIAN STATEMENT I saw and evaluated the patient. Chart, data, imaging reviewed. I reviewed the resident's note and discussed the case with the resident. I agree with the resident's findings and plan as documented. SUBJECTIVE: 58yo woman w/ HTN, HLD, Uncontrolled DM, PVD with Femoral artery DCP angioplasty , popliteal artery angioplasty, left toe amputations, s/p hyperbaric therapy for toes, hx of MRSA, with worsening right ring finger paronychia, which she started 3-4 weeks ago, failed 2 wk course of PO bactrim. Has been treated wound care center by [facility]. s/p at least 2 incisions, drainages. 10/09 wound culture grew MRSA sensitive to Bactrim but with high MARCOS to vancomycin-2. As per patient wound started after she was biting her nail. Has been progressively worsening. OBJECTIVE: Last Vital Signs Temp Pulse Resp BP Pulse Ox 98.1 F 80 18 126/50 L 100 10/24/18 16:58 10/24/18 20:26 10/24/18 20:26 10/24/18 20:26 10/24/18 20:26 general -nad, aaox3, pleasant heent -clear sclera, moist oral mucosa neck supple cv-s1+s2+rrr chest clear ext -multiple toe amputation, left leg s/p scars s/p angioplasty, right 4th digit distal phalynx erythema, warmth, no discharge appreciated Abnormal Lab Results 10/24/18 10/24/18 10/24/18 17:12 17:22 18:44 Potassium 5.5 H BUN 28.6 H Random Glucose 143 H AST 40 H Alkaline Phosphatase 125 H Total Protein 8.5 H Ur Leukocyte Esterase 2+ H Acetone, Qual Negative L imaging studies reviewed, right hand xray showed soft tissue, swelling in right distal phalynx of 4th hand. ASSESSMENT AND PLAN: #left 4th digit paronychia with soft tissue infection, abscess s/p drainage. wound culture grew MRSA sensitive to TMP/SMX. Lack of response to Bactrim as an outpatient suggest possible underlying bone involvement. Noted to have MARCOS of 2 to vancomycin which makes it a less ideal agent. Would attempt daptomycin at this time. -med/surg -daptomycin 500mg IV stat -send esr, crp -right hand mri to evaluate for OM -baseline CK level and monitor regularly -wound care as per vascular surgery -vascular surgery, ID consults #DM- uncontrolled, likely cause of underlying PVD, must optimize glucose in order to promote wound healing -tight glucose control -send a1c -diabetic diet #dvt ppx -heparin sc
--- NOTE | 2018-10-25 00:33 | HP ---
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 Patient reported she was biting her nails when she bit a part of her skin of the right 4th finger that resulted in a wound. She noted worsening of the wound, and was manually draining it with expression of pus. She has been seen by Dr. Jones and Dr. Olvera for incision and drainage of the same wound, with cultures positive for MRSA. She was also started on Bactrim for which she has been taking for 3 weeks. She was seen today at the wound care clinic by Dr. Olvera, as well as ID, and IV antibiotics was recommended. Patient reports pain around the wound site but denies any fever, chills, headache, nausea, vomiting. Patient was also noted to have bandage surrounding her left foot to which she refused to be examined, but reported she had ulcers on the left plantar foot and has been seeing wound care for it frequently to be checked. She denies chest pain, SOB, abdominal pain, diarrhea, urinary symptoms. 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 1 applic TP DAILY #90 oint...g. 06/12/18 [Santyl] Carvedilol [Coreg -] 12.5 tab PO BID 07/03/18 Acetaminophen [Tylenol] 650 mg PO Q6H PRN 08/15/18 Insulin Lispro [Admelog] 100 unit SQ TID PRN 08/15/18 Basaglar Kwikpen U-100 30 units SCJ HS 08/22/18 Clopidogrel 75 mg PO DAILY 08/22/18 Gentamicin 0.1% Ointment 1 applic TP DAILY 09/05/18 [Garamycin 0.1% Ointment -] Losartan Potassium [Cozaar] 25 mg PO DAILY 09/05/18 Multivitamin [Multiple Vitamins] 1 tab PO DAILY 10/03/18 Sulfamethoxazole/Trimethoprim 1 tab PO BID #14 tablet 10/17/18 [Bactrim Ds -] REVIEW OF SYSTEMS CONSTITUTIONAL: Absent: fever, chills, diaphoresis, generalized weakness, malaise, loss of appetite, weight change HEENT: Absent: rhinorrhea, nasal congestion, throat pain, throat swelling, difficulty swallowing, mouth swelling, ear pain, eye pain, visual changes CARDIOVASCULAR: Absent: chest pain, syncope, palpitations, irregular heart rate, lightheadedness , peripheral edema RESPIRATORY: Absent: cough, shortness of breath, dyspnea with exertion, orthopnea, wheezing, stridor, hemoptysis GASTROINTESTINAL: Absent: abdominal pain, abdominal distension, nausea, vomiting, diarrhea, constipation, melena, hematochezia GENITOURINARY: Absent: dysuria, frequency, urgency, hesitancy, hematuria, flank pain, genital pain MUSCULOSKELETAL: Absent: myalgia, arthralgia, joint swelling, back pain, neck pain SKIN: Absent: rash, itching, pallor HEMATOLOGIC/IMMUNOLOGIC: Absent: easy bleeding, easy bruising, lymphadenopathy, frequent infections ENDOCRINE: Absent: unexplained weight gain, unexplained weight loss, heat intolerance, cold intolerance NEUROLOGIC: Absent: headache, focal weakness or paresthesias, dizziness, unsteady gait, seizure, mental status changes, bladder or bowel incontinence PSYCHIATRIC: Absent: anxiety, depression, suicidal or homicidal ideation, hallucinations. PHYSICAL EXAMINATION Vital Signs - 24 hr 10/24/18 10/24/18 10/24/18 16:58 17:30 20:26 Temperature 98.1 F Pulse Rate 74 Pulse Rate [ 80 Radial] Respiratory 16 18 Rate Blood Pressure 149/56 L Blood Pressure 126/50 L [Left Arm] O2 Sat by Pulse 99 100 100 Oximetry (%) GENERAL: Awake, alert, and fully oriented, in no acute distress. HEAD: Normal with no signs of trauma. EYES:PERRLA, EOMI, sclera anicteric, conjunctiva clear. EARS, NOSE, THROAT: Moist mucous membranes. NECK: Normal range of motion, supple without lymphadenopathy, JVD, or masses. LUNGS: Breath sounds equal, clear to auscultation bilaterally. HEART: Regular rate and rhythm, normal S1 and S2 without murmur, rub or gallop. ABDOMEN: Soft, nontender, not distended, normoactive bowel sounds. MUSCULOSKELETAL: Normal range of motion at all joints. UPPER EXTREMITIES: 2+ pulses, warm, well-perfused. No peripheral edema. RUE: + paronychia with erythema, edema and tenderness surrounding the nail of the right 4th digit LOWER EXTREMITIES: 2+ pulses, warm, well-perfused. No peripheral edema. LLE: + amputated 1st, 2nd and 5th great toe. Foot wrapped in bandage. RLE: +cellulitis of 3rd toe NEUROLOGICAL: Cranial nerves II-XII intact. Normal speech. Gait not observed PSYCHIATRIC: Cooperative. Good eye contact. Appropriate mood and affect. SKIN: Warm, dry, normal turgor. Laboratory Results - last 24 hr 10/24/18 10/24/18 10/24/18 17:12 17:22 18:44 WBC 8.7 RBC 3.81 Hgb 11.0 Hct 33.6 D MCV 88.0 MCH 29.0 MCHC 32.9 RDW 15.0 Plt Count 307 MPV 9.2 Absolute Neuts (auto) 4.8 Neutrophils % 55.7 Lymphocytes % 31.8 D Monocytes % 7.6 Eosinophils % 4.2 Basophils % 0.7 Nucleated RBC % 0 Sodium 136 Potassium 5.5 H Chloride 102 Carbon Dioxide 26 Anion Gap 9 BUN 28.6 H Creatinine 1.3 Est GFR (CKD-EPI)AfAm 52.74 Est GFR (CKD-EPI)NonAf 45.50 POC Glucometer Random Glucose 143 H Lactic Acid Calcium 9.7 Total Bilirubin 0.4 AST 40 H ALT 27 Alkaline Phosphatase 125 H Total Protein 8.5 H Albumin 3.5 Urine Color Urine Appearance Urine pH Ur Specific [place] Urine Protein Urine Glucose (UA) Urine Ketones Urine Blood Urine Nitrite Urine Bilirubin Urine Urobilinogen Ur Leukocyte Esterase Urine WBC (Auto) Urine RBC (Auto) Urine Casts (Auto) U Epithel Cells (Auto) Urine Bacteria (Auto) Acetone, Qual Negative L 10/24/18 10/24/18 10/24/18 18:44 18:44 21:55 WBC RBC Hgb Hct MCV MCH MCHC RDW Plt Count MPV Absolute Neuts (auto) Neutrophils % Lymphocytes % Monocytes % Eosinophils % Basophils % Nucleated RBC % Sodium Potassium Chloride Carbon Dioxide Anion Gap BUN Creatinine Est GFR (CKD-EPI)AfAm Est GFR (CKD-EPI)NonAf POC Glucometer 266 Random Glucose Lactic Acid 1.6 Calcium Total Bilirubin AST ALT Alkaline Phosphatase Total Protein Albumin Urine Color Yellow Urine Appearance Turbid Urine pH 5.0 Ur Specific [place] 1.019 Urine Protein Trace Urine Glucose (UA) Negative Urine Ketones Negative Urine Blood Negative Urine Nitrite Negative Urine Bilirubin Negative Urine Urobilinogen 0.2 Ur Leukocyte Esterase 2+ H Urine WBC (Auto) 39 Urine RBC (Auto) 1 Urine Casts (Auto) 9 U Epithel Cells (Auto) 0.5 Urine Bacteria (Auto) 6963.8 Acetone, Qual ASSESSMENT/PLAN: Patient is a 58 year old female with past medical history of DM, HTN, HLD, 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 #Left 4th digit paronychia with cellulitis -s/p I&D by Dr. Olvera today -Vanc and zosyn started by ID -Previous wound cultures showed MRSA with MARCOS of 2 to vancomycin -Daptomycin 500mg ordered and given once -ESR/CRP ordered -MRI of RUE ordered to evaluate for osteomyelitis -Surgery (Dr. Olvera) consulted. -ID (Dr. Bishop) consulted. #DM -HbA1c ordered -Insulin sliding scale implemented -BGM ACHS -Insulin Levemir 20u HS #FEN -Not on any standing fluids -Electrolytes wnl, routine bmp monitoring -Sodium restricted/diabetic diet #Prophylaxis -Heparin 5000u sq tid #Disposition -full code -admit to med surg with MRSA isolation precaution Visit type - Emergency Visit Emergency Visit: Yes ED Registration Date: 10/24/18 Care time: The patient presented to the Emergency Department on the above date and was hospitalized for further evaluation of their emergent condition. - New Patient This patient is new to me today: Yes Date on this admission: 10/24/18 - Critical Care Critical Care patient: No ATTENDING PHYSICIAN STATEMENT I saw and evaluated the patient. I reviewed the resident's note and discussed the case with the resident. I agree with the resident's findings and plan as documented. SUBJECTIVE: OBJECTIVE: ASSESSMENT AND PLAN:
[2018-10-25] MEDS ORDERED: PIPERACILLIN/TAZOBACTAM 3.375 GM VIAL IVPB ONE ×3 (01:57→16:47)
[2018-10-25] MEDS ORDERED: DEXTROSE 5%-WATER - 50 ML IVPB ONE ×3 (01:57→16:48)
[2018-10-25] MEDS: PIPERACILLIN/TAZOB 3.375 GM 3.375 GM in DEXTROSE 5%-WATER - 50 ML IVPB SCH ×3 (02:12→17:03)
[2018-10-25] MEDS ORDERED: DAPTOMYCIN 500 MG in SODIUM CHLORIDE 50 ML IVPB ONE (02:30)
[2018-10-25] MEDS: VANCOMYCIN 1 GRAM (PRE-DOCKED) 1,000 MG/250 ML BAG IVPB SCH ×3 (04:41→19:30)
[2018-10-25] MEDS: HEPARIN NA (PORCINE) 5,000 UNITS/ML 1ML VIAL SQ SCH ×3 (06:09→21:24)
[2018-10-25] MEDS: INSULIN SLIDING SCALE (NOVOLOG) 1 VIAL SQ SCH ×4 (06:11→21:25)
[2018-10-25 07:43] LABS: BASO % 0.3 % (0-2.0); EOS % 0.3 % (0-4.5); HEMATOCRIT 30.4 % (32.4-45.2); HEMOGLOBIN 10.1 GM/dL (10.7-15.3); LYMPH % 9.3 % (8-40); MCH 29.1 pg (25.7-33.7); MCHC 33.3 g/dl (32.0-36.0); MEAN CELL VOLUME 87.4 fl (80-96); MEAN PLT VOLUME 8.6 fl (7.5-11.1); NEUT % 88.1 % (42.8-82.8); PLATELET COUNT 228 K/MM3 (134-434); RBC 3.48 M/mm3 (3.60-5.2); RDW 14.9 % (11.6-15.6); WHITE BLOOD COUNT 7.9 K/mm3 (4.0-10.0)
[2018-10-25 07:51] LABS: BILIRUBIN,TOTAL 0.7 mg/dL (0.2-1); BLOOD UREA NITROGEN 32.9 mg/dL (7-18); CALCIUM 8.8 mg/dL (8.5-10.1); CREATININE 1.4 mg/dL (0.55-1.3); MAGNESIUM 2.5 mg/dL (1.8-2.4); PHOSPHOROUS 2.8 mg/dL (2.5-4.9); TOT PROT 7.3 g/dl (6.4-8.2)
[2018-10-25 08:04] LABS: POTASSIUM 6.6 mmol/L (3.5-5.1)
[2018-10-25] MEDS ORDERED: ALBUTEROL SO4 0.083% IH SOL 2.5 MG/3 ML VIAL.NEB. NEB ONE (08:13)
[2018-10-25 10:58] LABS: BLOOD UREA NITROGEN 27.9 mg/dL (7-18); CREATININE 1.3 mg/dL (0.55-1.3); POTASSIUM 5.5 mmol/L (3.5-5.1)
--- NOTE | 2018-10-25 11:00 | EKG ---
Test Reason : Blood Pressure : / mmHG Vent. Rate : 074 BPM Atrial Rate : 074 BPM P-R Int : 156 ms QRS Dur : 070 ms QT Int : 402 ms P-R-T Axes : 014 006 050 degrees QTc Int : 446 ms NORMAL SINUS RHYTHM NORMAL ECG WHEN COMPARED WITH ECG OF 18-JUL-2018 10:09, T WAVE INVERSION NO LONGER EVIDENT IN INFERIOR LEADS Confirmed by ENOC SANFORD, BISMARK ([id number]) on 10/25/2018 10:59:27 AM Referred By: Bruce AMANDA Confirmed By:BISMARK STUBBS MD
--- NOTE | 2018-10-25 11:19 | PROC ---
Incision and Drainage Indication/Location: right ring finger paronychia chronically draining Risks and Benefits Explained: Yes Consent on Chart: Yes Betadine cleansed: Yes Anesthesia: 1% Lidocaine Blade Size: 15 Drainage: non-foul smelling yellow drainge Irrigated with Normal Saline: Yes Plain packing: No Sterile Dressing Applied: Yes - Remarks Remarks: formal time out procedure digital block applied to right ring finger sterile prep and drape drainge of paronychia flushed with hydrogen peroxide solution sterile dressing
[2018-10-25] MEDS: BACITRACIN 15 GM TUBE TOPICAL OINTMENT TP SCH (12:24)
[2018-10-25] MEDS: COLLAGENASE CLOSTRIDIUM HIST. 30 GRAMS TUBE TP SCH (12:24)
[2018-10-25] MEDS ORDERED: INSULIN REGULAR HUMAN 100 UNITS/ML *VIAL IVPUSH ONE (13:23)
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
--- NOTE | 2018-10-25 13:50 | PN ---
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 Dr. Jones and Dr. Olvera I/D found site MRSA (+). On Bactrim for 3 weeks. Vanc and Zosyn given in ED. Pt seen and examined at bedside today. She states her finger is not painful today. She denies NVFD. OBJECTIVE: Vital Signs Period Temp Pulse Resp BP Sys/Zhang Pulse Ox Last 24 Hr 98.1 F-98.9 F 74-82 16-18 104-149/50-73 98-100 GENERAL: AOx3, in no acute distress. HEAD: NCAT EYES: NATALIE, EOMI, conjunctiva clear. ENT: Ears normal, nares patent, oropharynx clear without exudates. Moist mucous membranes. NECK: Normal range of motion, supple without lymphadenopathy, JVD, or masses. LUNGS: CTAB. No wheezes, and no crackles. No accessory muscle use. HEART: RRR s1 s2 ABDOMEN: Soft, BS present in all 4 quadrants, non-distended, no JVD, MUSCULOSKELETAL: No bony deformities or tenderness. No CVA tenderness. UPPER EXTREMITIES: RUE 4th digit lacerated and covered w bandage. No dc/ purulence. LOWER EXTREMITIES: Well healed bypass scar Lle. L foot with multiple milly amputations, all well healed. L foot with 2 plantar ulcers one at mid foot approximately 3.5x2.5x2cm, other over heel approx 2x1.5x1.5cm. Both clean based with scant fibrinous exudate and serous drainage. No surrounding erythema. No foul odor. R foot with denuded skin at 4th toe, nearly circumferential. Clean based with scant necrotic tissue at lateral edge of 4th toe, no erythema no drainage. NEUROLOGICAL: Cranial nerves II-XII intact. Normal speech. Gait not appreciated. PSYCHIATRIC: Cooperative. Good eye contact. Appropriate mood and affect. SKIN: Warm, dry, normal turgor, no rashes or lesions noted, normal capillary refill. Laboratory Results - last 24 hr 10/24/18 10/24/18 10/24/18 17:12 17:22 18:44 WBC 8.7 RBC 3.81 Hgb 11.0 Hct 33.6 D MCV 88.0 MCH 29.0 MCHC 32.9 RDW 15.0 Plt Count 307 MPV 9.2 Absolute Neuts (auto) 4.8 Neutrophils % 55.7 Lymphocytes % 31.8 D Monocytes % 7.6 Eosinophils % 4.2 Basophils % 0.7 Nucleated RBC % 0 Sodium 136 Potassium 5.5 H Chloride 102 Carbon Dioxide 26 Anion Gap 9 BUN 28.6 H Creatinine 1.3 Est GFR (CKD-EPI)AfAm 52.74 Est GFR (CKD-EPI)NonAf 45.50 POC Glucometer Random Glucose 143 H Hemoglobin A1c % Lactic Acid Calcium 9.7 Phosphorus Magnesium Total Bilirubin 0.4 AST 40 H ALT 27 Alkaline Phosphatase 125 H Creatine Kinase Total Protein 8.5 H Albumin 3.5 Urine Color Urine Appearance Urine pH Ur Specific [place] Urine Protein Urine Glucose (UA) Urine Ketones Urine Blood Urine Nitrite Urine Bilirubin Urine Urobilinogen Ur Leukocyte Esterase Urine WBC (Auto) Urine RBC (Auto) Urine Casts (Auto) U Epithel Cells (Auto) Urine Bacteria (Auto) Acetone, Qual Negative L 10/24/18 10/24/18 10/24/18 18:44 18:44 21:55 WBC RBC Hgb Hct MCV MCH MCHC RDW Plt Count MPV Absolute Neuts (auto) Neutrophils % Lymphocytes % Monocytes % Eosinophils % Basophils % Nucleated RBC % Sodium Potassium Chloride Carbon Dioxide Anion Gap BUN Creatinine Est GFR (CKD-EPI)AfAm Est GFR (CKD-EPI)NonAf POC Glucometer 266 Random Glucose Hemoglobin A1c % Lactic Acid 1.6 Calcium Phosphorus Magnesium Total Bilirubin AST ALT Alkaline Phosphatase Creatine Kinase Total Protein Albumin Urine Color Yellow Urine Appearance Turbid Urine pH 5.0 Ur Specific [place] 1.019 Urine Protein Trace Urine Glucose (UA) Negative Urine Ketones Negative Urine Blood Negative Urine Nitrite Negative Urine Bilirubin Negative Urine Urobilinogen 0.2 Ur Leukocyte Esterase 2+ H Urine WBC (Auto) 39 Urine RBC (Auto) 1 Urine Casts (Auto) 9 U Epithel Cells (Auto) 0.5 Urine Bacteria (Auto) 6963.8 Acetone, Qual 10/25/18 10/25/18 10/25/18 05:30 05:30 05:30 WBC 7.9 RBC 3.48 L Hgb 10.1 L Hct 30.4 L MCV 87.4 MCH 29.1 MCHC 33.3 RDW 14.9 Plt Count 228 D MPV 8.6 Absolute Neuts (auto) 6.9 Neutrophils % 88.1 H D Lymphocytes % 9.3 D Monocytes % 2.0 L Eosinophils % 0.3 D Basophils % 0.3 Nucleated RBC % 0 Sodium 131 L Potassium 6.6 H* Chloride 101 Carbon Dioxide 23 Anion Gap 7 L BUN 32.9 H Creatinine 1.4 H Est GFR (CKD-EPI)AfAm 48.22 Est GFR (CKD-EPI)NonAf 41.60 POC Glucometer Random Glucose 357 H Hemoglobin A1c % 9.4 H Lactic Acid Calcium 8.8 Phosphorus 2.8 Magnesium 2.5 H Total Bilirubin 0.7 AST 27 ALT 22 Alkaline Phosphatase 103 Creatine Kinase 108 Total Protein 7.3 Albumin 3.0 L Urine Color Urine Appearance Urine pH Ur Specific [place] Urine Protein Urine Glucose (UA) Urine Ketones Urine Blood Urine Nitrite Urine Bilirubin Urine Urobilinogen Ur Leukocyte Esterase Urine WBC (Auto) Urine RBC (Auto) Urine Casts (Auto) U Epithel Cells (Auto) Urine Bacteria (Auto) Acetone, Qual 10/25/18 10/25/18 10/25/18 05:47 10:08 11:08 WBC RBC Hgb Hct MCV MCH MCHC RDW Plt Count MPV Absolute Neuts (auto) Neutrophils % Lymphocytes % Monocytes % Eosinophils % Basophils % Nucleated RBC % Sodium 134 L Potassium 5.5 H Chloride 102 Carbon Dioxide 25 Anion Gap 7 L BUN 27.9 H Creatinine 1.3 Est GFR (CKD-EPI)AfAm 52.74 Est GFR (CKD-EPI)NonAf 45.50 POC Glucometer 335 343 Random Glucose 294 H Hemoglobin A1c % Lactic Acid Calcium 9.0 Phosphorus Magnesium Total Bilirubin AST ALT Alkaline Phosphatase Creatine Kinase Total Protein Albumin Urine Color Urine Appearance Urine pH Ur Specific [place] Urine Protein Urine Glucose (UA) Urine Ketones Urine Blood Urine Nitrite Urine Bilirubin Urine Urobilinogen Ur Leukocyte Esterase Urine WBC (Auto) Urine RBC (Auto) Urine Casts (Auto) U Epithel Cells (Auto) Urine Bacteria (Auto) Acetone, Qual Active Medications Bacitracin (Bacitracin -) 1 applic TP DAILY SEVERIANO Last Admin: 10/25/18 12:24 Dose: 1 applic Collagenase (Santyl -) 1 applic TP DAILY SEVERIANO; Protocol Last Admin: 10/25/18 12:24 Dose: 1 applic Heparin Sodium (Porcine) (Heparin -) 5,000 unit SQ TID SEVER[facility]O Last Admin: 10/25/18 14:15 Dose: 5,000 unit Vancomycin HCl (Vancomycin (Pre-Docked)) 1,000 mg in 250 mls @ 166.667 mls/hr IVPB Q12H SE[facility] Last Admin: 10/25/18 04:41 Dose: 166.667 mls/hr Piperacillin Sod/Tazobactam (Sod 3.375 gm/ Dextrose) 50 mls @ 100 mls/hr IVPB Q8H-IV SEVERIANO; Protocol Last Admin: 10/25/18 10:20 Dose: 100 mls/hr Sodium Chloride (Normal Saline -) 1,000 mls @ 83 mls/hr IV ASDIR [facility] Last Admin: 10/24/18 23:00 Dose: 83 mls/hr Insulin Aspart (Novolog Vial Sliding Scale -) 1 vial SQ ACHS SE[facility]IANO; Protocol Last Admin: 10/25/18 11:08 Dose: 8 units Insulin Detemir (Levemir Vial) 20 units SQ HS SE[facility]O ASSESSMENT/PLAN: 58 y/o female with PMH DM, HTN, HLD, 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 Failed out-patient treatment with Bactrim. # RUE 4th Digit paronychia with surrounding cellulitis. - S/p I&D - Wound Cx pending - Prior Cx positive for MRSA - IV Zosyn/Vanco as per ID. - Received 1 dose Daptomycin on admission - Further Abx therapy as per ID - Awaiting MRCP RUE to exclude osteomyelitis. # Hyperkalemia, resolved - Insulin # DM 2 - Uncontrolled, A1C 9.4 - ISS (levemir and novolog) # HTN - Cont. home regimen: losartan, coreg. # PAD s/p femoral and popliteal angioplasty - Cont. asa/plavix - F/u need for statin with vascular sx # DVT prophylaxis - Heparin SQ # F/E/N - NS - Cont. to monitor electrolytes - Low sodium/diabetic diet Charli Hummel MD Visit type - Emergency Visit Emergency Visit: No - New Patient This patient is new to me today: Yes Date on this admission: 10/26/18 - Critical Care Critical Care patient: No - Discharge Referral Referred to [facility] Med P.C.: No ATTENDING PHYSICIAN STATEMENT I saw and evaluated the patient. I reviewed the resident's note and discussed the case with the resident. I agree with the resident's findings and plan as documented. SUBJECTIVE: OBJECTIVE: ASSESSMENT AND PLAN:
[2018-10-25] MEDS ORDERED: INSULIN (NOVOLOG) ASPART 100 UNITS/ML 10ML VIAL SQ ONE (14:00)
[2018-10-25 19:08] LABS: ALBUMIN 3.3 g/dl (3.4-5.0); BILIRUBIN,DIRECT 0.1 mg/dL (0.0-0.2); BILIRUBIN,TOTAL 0.4 mg/dL (0.2-1); CALCIUM 9.6 mg/dL (8.5-10.1); CREATININE 1.3 mg/dL (0.55-1.3); POTASSIUM 4.7 mmol/L (3.5-5.1); TOT PROT 7.8 g/dl (6.4-8.2)
--- NOTE | 2018-10-25 20:52 | PN ---
Teaching Attending Note Name of Resident: Charli Hummel ATTENDING PHYSICIAN STATEMENT I saw and evaluated the patient. I reviewed the resident's note and discussed the case with the resident. I agree with the resident's findings and plan as documented. SUBJECTIVE: Ongoing discomfort R 4th digit. No fever/chills. No nausea/vomiting. OBJECTIVE: Afebrile, Hemodynamically Stable. Last Vital Signs Temp Pulse Resp BP Pulse Ox 98.6 F 82 18 135/62 98 10/25/18 18:12 10/25/18 18:12 10/25/18 18:12 10/25/18 18:12 10/25/18 10:25 HEENT- Atraumatic, Normocephalic. Heart - S1, S2, RRR Lungs - clear to auscultation Abdomen - soft, non-tender. Bowel Sounds normal. Extremities: R 4th digit - erythematous distal phalynx with incision and dried blood at incision site on nailbed. Neurovasularly intact. RLE - gangrenous 4th toe LLE - s/p amputation first three toes. 2 large ulcers on plantar aspect of L foot, non-infected. Laboratory Results - last 24 hr 10/24/18 10/25/18 10/25/18 21:55 05:30 05:30 WBC 7.9 RBC 3.48 L Hgb 10.1 L Hct 30.4 L MCV 87.4 MCH 29.1 MCHC 33.3 RDW 14.9 Plt Count 228 D MPV 8.6 Absolute Neuts (auto) 6.9 Neutrophils % 88.1 H D Lymphocytes % 9.3 D Monocytes % 2.0 L Eosinophils % 0.3 D Basophils % 0.3 Nucleated RBC % 0 Sodium 131 L Potassium 6.6 H* Chloride 101 Carbon Dioxide 23 Anion Gap 7 L BUN 32.9 H Creatinine 1.4 H Est GFR (CKD-EPI)AfAm 48.22 Est GFR (CKD-EPI)NonAf 41.60 POC Glucometer 266 Random Glucose 357 H Hemoglobin A1c % Calcium 8.8 Phosphorus 2.8 Magnesium 2.5 H Total Bilirubin 0.7 Direct Bilirubin AST 27 ALT 22 Alkaline Phosphatase 103 Creatine Kinase 108 Total Protein 7.3 Albumin 3.0 L 10/25/18 10/25/18 10/25/18 05:30 05:47 10:08 WBC RBC Hgb Hct MCV MCH MCHC RDW Plt Count MPV Absolute Neuts (auto) Neutrophils % Lymphocytes % Monocytes % Eosinophils % Basophils % Nucleated RBC % Sodium 134 L Potassium 5.5 H Chloride 102 Carbon Dioxide 25 Anion Gap 7 L BUN 27.9 H Creatinine 1.3 Est GFR (CKD-EPI)AfAm 52.74 Est GFR (CKD-EPI)NonAf 45.50 POC Glucometer 335 Random Glucose 294 H Hemoglobin A1c % 9.4 H Calcium 9.0 Phosphorus Magnesium Total Bilirubin Direct Bilirubin AST ALT Alkaline Phosphatase Creatine Kinase Total Protein Albumin 10/25/18 10/25/18 10/25/18 11:08 17:02 17:30 WBC RBC Hgb Hct MCV MCH MCHC RDW Plt Count MPV Absolute Neuts (auto) Neutrophils % Lymphocytes % Monocytes % Eosinophils % Basophils % Nucleated RBC % Sodium 135 L Potassium 4.7 Chloride 100 Carbon Dioxide 27 Anion Gap 8 BUN 29.0 H Creatinine 1.3 Est GFR (CKD-EPI)AfAm 52.74 Est GFR (CKD-EPI)NonAf 45.50 POC Glucometer 343 226 Random Glucose 222 H Hemoglobin A1c % Calcium 9.6 Phosphorus Magnesium Total Bilirubin 0.4 Direct Bilirubin 0.1 AST 25 ALT 24 Alkaline Phosphatase 121 H Creatine Kinase Total Protein 7.8 Albumin 3.3 L Current Medications Generic Name Dose Route Start Last Admin Trade Name Freq PRN Reason Stop Dose Admin Bacitracin 1 applic 10/25/18 11:00 10/25/18 12:24 Bacitracin - TP 1 applic DAILY SEVERIANO Administration Collagenase 1 applic 10/25/18 11:00 10/25/18 12:24 Santyl - TP 1 applic DAILY SEVERIANO Administration Protocol Heparin Sodium (Porcine) 5,000 unit 10/25/18 06:00 10/25/18 14:15 Heparin - SQ 5,000 unit TID SEVERIANO Administration Vancomycin HCl 1,000 mg in 250 mls @ 166.667 mls/hr 10/24/18 17:15 10/25/18 19:30 Vancomycin (Pre-Docked) IVPB 166.667 mls/hr Q12H SEVERIANO Administration Piperacillin Sod/Tazobactam 50 mls @ 100 mls/hr 10/24/18 18:00 10/25/18 17:03 Sod 3.375 gm/ Dextrose IVPB 100 mls/hr Q8H-IV SEVERIANO Administration Protocol Sodium Chloride 1,000 mls @ 83 mls/hr 10/24/18 21:00 10/24/18 23:00 Normal Saline - IV 83 mls/hr ASDIR SEVERIANO Administration Insulin Aspart 1 vial 10/24/18 22:00 10/25/18 17:03 Novolog Vial Sliding Scale - SQ 4 units ACHS SEVERIANO Administration Protocol Insulin Detemir 20 units 10/25/18 22:00 Levemir Vial SQ HS [facility] Home Medications Medication Instructions Recorded Aspirin [ASA -] 81 mg PO DAILY 05/03/17 Insulin Glargine,Hum.rec.anlog 22 unit SQ DAILY PRN 12/02/17 [Basaglar Kwikpen U-100] Collagenase Clostridium Hist. 1 applic TP DAILY #90 oint...g. 06/12/18 [Santyl] Carvedilol [Coreg -] 12.5 tab PO BID 07/03/18 Acetaminophen [Tylenol] 650 mg PO Q6H PRN 08/15/18 Insulin Lispro [Admelog] 100 unit SQ TID PRN 08/15/18 Basaglar Kwikpen U-100 22 units SQ HS 08/22/18 Clopidogrel 75 mg PO DAILY 08/22/18 Gentamicin 0.1% Ointment 1 applic TP DAILY 09/05/18 [Garamycin 0.1% Ointment -] Losartan Potassium [Cozaar] 25 mg PO DAILY 09/05/18 Multivitamin [Multiple Vitamins] 1 tab PO DAILY 10/03/18 Sulfamethoxazole/Trimethoprim 1 tab PO BID #14 tablet 10/17/18 [Bactrim Ds -] Ascorbate Calcium [Vitamin C] 500 mg PO DAILY 10/25/18 Blood Sugar Diagnostic [Freestyle 1 each TP DAILY 10/25/18 Insulinx Test Strips] Insulin Lispro [Admelog] 12 units SQ DAILY 10/25/18 ASSESSMENT AND PLAN: 58 year old female with past medical history of DM 2, HTN, HLD, PVD s/p femoral artery DCP angioplasty, popliteal artery angioplasty, s/p amputations of first 3 toes L foot, chronic ulcers on plantar aspect L foot (follows with wound clinic), 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 Jones, scheduled for CT Angio in 2 weeks apparently), presented with worsening wound of the right 4th finger that started 4 weeks ago, seen and attended to by both Dr. Jones and Dr. Olvera. Wound Cx on prior I and D grew MRSA. She failed out-patient treatment with Bactrim. 1. Left Hand 4th Digit Paronychia with surrounding Cellulitis. s/p I and D - Wound Cx pending Prior Cx positive for MRSA IV Zosyn/Vanco as per ID. Received 1 dose Daptomycin on admission Further Abx therapy as per ID Awaiting MRCP RUE to exclude osteomyelitis. 2. DM 2 - Uncontrolled, A1C 9.4. Maintain on Levemir and Novolog as per sliding scale. 3. HTN - Continue Losartan, Coreg. 4. PAD s/p Femoral and Popliteal Angioplasty - Continue Aspirin/Plavix. Unclear why not on statin - will discuss with Vascular Sx. DVT Px- Heparin SQ
[2018-10-25] MEDS: SODIUM CHLORIDE 1,000 ML IV SCH (21:00)
[2018-10-25] MEDS: INSULIN (LEVEMIR) 100 UNITS/ML UNITS SQ SCH (21:24)
[2018-10-25] MEDS ORDERED: CARVEDILOL 6.25 MG TABLET (FP) PO SCH (22:00)
[2018-10-26] MEDS ORDERED: PIPERACILLIN/TAZOBACTAM 3.375 GM VIAL IVPB ONE ×3 (00:43→17:08)
[2018-10-26] MEDS ORDERED: DEXTROSE 5%-WATER - 50 ML IVPB ONE ×3 (00:44→17:09)
[2018-10-26] MEDS: PIPERACILLIN/TAZOB 3.375 GM 3.375 GM in DEXTROSE 5%-WATER - 50 ML IVPB SCH ×3 (01:12→17:24)
[2018-10-26] MEDS: SODIUM CHLORIDE 1,000 ML IV SCH ×2 (01:19→22:06)
[2018-10-26] MEDS: HEPARIN NA (PORCINE) 5,000 UNITS/ML 1ML VIAL SQ SCH ×3 (05:39→22:06)
[2018-10-26] MEDS: INSULIN SLIDING SCALE (NOVOLOG) 1 VIAL SQ SCH ×4 (06:04→22:40)
[2018-10-26] MEDS: VANCOMYCIN 1 GRAM (PRE-DOCKED) 1,000 MG/250 ML BAG IVPB SCH ×2 (06:19→17:25)
[2018-10-26 08:14] LABS: BASO % 0.7 % (0-2.0); EOS % 5.9 % (0-4.5); HEMATOCRIT 27.4 % (32.4-45.2); HEMOGLOBIN 9.1 GM/dL (10.7-15.3); LYMPH % 34.5 % (8-40); MCHC 33.3 g/dl (32.0-36.0); MEAN CELL VOLUME 87.2 fl (80-96); MEAN PLT VOLUME 8.7 fl (7.5-11.1); MONO % 7.9 % (3.8-10.2); PLATELET COUNT 218 K/MM3 (134-434); RBC 3.15 M/mm3 (3.60-5.2); RDW 14.5 % (11.6-15.6); WHITE BLOOD COUNT 5.3 K/mm3 (4.0-10.0)
[2018-10-26 08:31] LABS: ALBUMIN 2.9 g/dl (3.4-5.0); BILIRUBIN,TOTAL 0.3 mg/dL (0.2-1); BLOOD UREA NITROGEN 28.3 mg/dL (7-18); CALCIUM 9.1 mg/dL (8.5-10.1); MAGNESIUM 2.4 mg/dL (1.8-2.4); PHOSPHOROUS 3.8 mg/dL (2.5-4.9); TOT PROT 6.9 g/dl (6.4-8.2)
[2018-10-26] MEDS ORDERED: CARVEDILOL 6.25 MG TABLET (FP) PO SCH (08:43)
--- NOTE | 2018-10-26 09:31 | PN ---
Progress Note, Physician Chief Complaint: ring finger infection History of Present Illness: 58yo RHD female PMH HTN, HLD, Uncontrolled DM, PVD with Femoral artery DCP angioplasty, popliteal artery angioplasty, left toe amputations, hyperbarics, hx of MRSA, was sent to ED with indolent and worsening right ring finger paronychia which we have been treating in the wound care center. She has the1 incisions and drainge procedures one by Dr. Jones and the other by Dr. Olvera over the course of 4 week. She grew MRSA from woound but has not had significant improvement in the infection. She performs "self-care" with manual rupture, and manual expression of pus despite being warned against such activities. She says the wounds have been draining, foul smelling, and painful in the past 4 weeks. She denies fever and chills. She was sent to ED for admission so she could be assessed by ID for antibiotic regimen, Medicine glycemic control and lower extremity workup, and hand surgery. Patient currently denies pain, chest pain, sob, nausea, vomiting, fevers, chills, sob, urinary changes, bowel changes. We were asked to assess. - Current Medication List Current Medications: Active Medications Aspirin (Asa -) 81 mg PO DAILY SEVERIANO Bacitracin (Bacitracin -) 1 applic TP DAILY SEVERIANO Last Admin: 10/25/18 12:24 Dose: 1 applic Carvedilol (Coreg -) 12.5 mg PO BID SEVERIANO Clopidogrel Bisulfate (Plavix -) 75 mg PO DAILY SEVERIANO Collagenase (Santyl -) 1 applic TP DAILY SEVERIANO; Protocol Last Admin: 10/25/18 12:24 Dose: 1 applic Heparin Sodium (Porcine) (Heparin -) 5,000 unit SQ TID SEVERIANO Last Admin: 10/26/18 05:39 Dose: 5,000 unit Vancomycin HCl (Vancomycin (Pre-Docked)) 1,000 mg in 250 mls @ 166.667 mls/hr IVPB Q12H SEVERIANO Last Admin: 10/26/18 06:19 Dose: 166.667 mls/hr Piperacillin Sod/Tazobactam (Sod 3.375 gm/ Dextrose) 50 mls @ 100 mls/hr IVPB Q8H-IV SEVERIANO; Protocol Last Admin: 10/26/18 01:12 Dose: 100 mls/hr Sodium Chloride (Normal Saline -) 1,000 mls @ 83 mls/hr IV ASDIR [facility] Last Admin: 10/26/18 01:19 Dose: 83 mls/hr Insulin Aspart (Novolog Vial Sliding Scale -) 1 vial SQ ACHS [facility]; Protocol Last Admin: 10/26/18 06:04 Dose: 4 units Insulin Detemir (Levemir Vial) 20 units SQ HS [facility] Last Admin: 10/25/18 21:24 Dose: 20 units Losartan Potassium (Cozaar -) 25 mg PO DAILY [facility] - Objective Vital Signs: Vital Signs Temperature 98.2 F 10/26/18 06:00 Pulse Rate 75 10/26/18 06:00 Respiratory Rate 18 10/26/18 06:00 Blood Pressure 136/63 10/26/18 06:00 O2 Sat by Pulse Oximetry (%) 98 10/25/18 21:00 Constitutional: Yes: Well Nourished, No Distress, Calm Eyes: Yes: Conjunctiva Clear, EOM Intact HENT: Yes: Atraumatic, Normocephalic Neck: Yes: Supple, Trachea Midline Cardiovascular: Yes: Regular Rate and Rhythm, S1, S2 Respiratory: Yes: Regular, CTA Bilaterally Gastrointestinal: Yes: Normal Bowel Sounds, Soft ...Rectal Exam: Yes: Deferred Genitourinary: No: CVA Tenderness - Left, CVA Tenderness - Right Breast(s): No: Mass, Skin Changes Musculoskeletal: No: Muscle Pain, Muscle Weakness Extremities: No: Cool, Cyanosis Edema: No Peripheral Pulses WNL: Yes Peripheral Pulses: Left Radial: 2+, Right Radial: 2+, Left Doralis Pedis: 2+, Right Dorsalis Pedis: 2+, Left Femoral: 2+, Right Femoral: 2+ Integumentary: No: Incision, Jaundice Wound/Incision: Yes: Clean/Dry, Well Approximated, Dressing Dry and Intact Neurological: Yes: Alert, Oriented Psychiatric: Yes: Alert, Oriented Labs: CBC, BMP 10/26/18 06:10 10/26/18 06:10 Problem List - Problems (1) Paronychia of right ring finger Assessment/Plan: 58yo RHD female with right ring finger chronic paronychia, possible osteomyelitis of distal pahalanx Bedside I&D procedure IV antibotiocs ID consult glycemic control local wound care may be discharged with a plan for osteomylitis Code(s): L03.011 - CELLULITIS OF RIGHT FINGER (2) IDDM (insulin dependent diabetes mellitus) Code(s): E11.9 - TYPE 2 DIABETES MELLITUS WITHOUT COMPLICATIONS; Z79.4 - ALF (CURRENT) USE OF INSULIN (3) Paronychia Code(s): ALQ5584 - (4) HTN (hypertension) Code(s): I10 - ESSENTIAL (PRIMARY) HYPERTENSION Qualifiers: Hypertension type: essential hypertension Qualified Code(s): I10 - Essential (primary) hypertension (5) Osteomyelitis Code(s): M86.9 - OSTEOMYELITIS, UNSPECIFIED Qualifiers: Osteomyelitis type: other chronic Osteomyelitis location: hand Laterality : right Qualified Code(s): M86.641 - Other chronic osteomyelitis, right hand (6) PAD (peripheral artery disease) Code(s): I73.9 - PERIPHERAL VASCULAR DISEASE, UNSPECIFIED
[2018-10-26] MEDS ORDERED: CLOPIDOGREL 75 MG PO SCH (10:00)
[2018-10-26] MEDS: CARVEDILOL 12.5 MG TABLET (FP) PO SCH ×2 (10:09→22:06)
[2018-10-26] MEDS: CLOPIDOGREL BISULFATE 75 MG TABLET (FP) PO SCH (10:10)
[2018-10-26] MEDS: ASPIRIN 81 MG CHEWABLE TABLETS PO SCH (10:10)
[2018-10-26] MEDS: LOSARTAN POTASSIUM 25 MG TABLET PO SCH (10:10)
[2018-10-26] MEDS: COLLAGENASE CLOSTRIDIUM HIST. 30 GRAMS TUBE TP SCH (10:22)
[2018-10-26] MEDS: BACITRACIN 15 GM TUBE TOPICAL OINTMENT TP SCH (10:22)
--- NOTE | 2018-10-26 13:01 | PN ---
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 Dr. Jones and Dr. Olvera I/D found site MRSA (+). On Bactrim for 3 weeks. Vanc and Zosyn given in ED. Pt seen and examined at bedside today. She states her finger is not painful today. She states there is no discharge from the wound. She denies NVFD. OBJECTIVE: Vital Signs Period Temp Pulse Resp BP Sys/Zhang Pulse Ox Last 24 Hr 98.2 F-98.6 F 75-87 18-20 132-136/62-65 98-98 GENERAL: AOx3, in no acute distress. HEAD: NCAT EYES: NATALIE, EOMI, conjunctiva clear. ENT: Ears normal, nares patent, oropharynx clear without exudates. Moist mucous membranes. NECK: Normal range of motion, supple without lymphadenopathy, JVD, or masses. LUNGS: CTAB. No wheezes, and no crackles. No accessory muscle use. HEART: RRR s1 s2 ABDOMEN: Soft, BS present in all 4 quadrants, non-distended, no JVD, MUSCULOSKELETAL: No bony deformities or tenderness. No CVA tenderness. UPPER EXTREMITIES: RUE 4th digit lacerated and covered w bandage. No dc/ purulence. LOWER EXTREMITIES: Well healed bypass scar Lle. L foot with multiple milly amputations, all well healed. L foot with 2 plantar ulcers one at mid foot approximately 3.5x2.5x2cm, other over heel approx 2x1.5x1.5cm. Both clean based with scant fibrinous exudate and serous drainage. No surrounding erythema. No foul odor. R foot with denuded skin at 4th toe, nearly circumferential. Clean based with scant necrotic tissue at lateral edge of 4th toe, no erythema no drainage. NEUROLOGICAL: Cranial nerves II-XII intact. Normal speech. Gait not appreciated. PSYCHIATRIC: Cooperative. Good eye contact. Appropriate mood and affect. SKIN: Warm, dry, normal turgor, no rashes or lesions noted, normal capillary refill. Laboratory Results - last 24 hr 10/25/18 10/25/18 10/25/18 17:02 17:30 21:11 WBC RBC Hgb Hct MCV MCH MCHC RDW Plt Count MPV Absolute Neuts (auto) Neutrophils % Lymphocytes % Monocytes % Eosinophils % Basophils % Nucleated RBC % Sodium 135 L Potassium 4.7 Chloride 100 Carbon Dioxide 27 Anion Gap 8 BUN 29.0 H Creatinine 1.3 Est GFR (CKD-EPI)AfAm 52.74 Est GFR (CKD-EPI)NonAf 45.50 POC Glucometer 226 295 Random Glucose 222 H Calcium 9.6 Phosphorus Magnesium Total Bilirubin 0.4 Direct Bilirubin 0.1 AST 25 ALT 24 Alkaline Phosphatase 121 H Total Protein 7.8 Albumin 3.3 L 10/26/18 10/26/18 10/26/18 06:02 06:10 06:10 WBC 5.3 RBC 3.15 L Hgb 9.1 L Hct 27.4 L MCV 87.2 MCH 29.0 MCHC 33.3 RDW 14.5 Plt Count 218 MPV 8.7 Absolute Neuts (auto) 2.7 Neutrophils % 51.0 D Lymphocytes % 34.5 D Monocytes % 7.9 D Eosinophils % 5.9 H D Basophils % 0.7 Nucleated RBC % 0 Sodium 140 Potassium 5.0 Chloride 107 Carbon Dioxide 25 Anion Gap 8 BUN 28.3 H Creatinine 1.0 Est GFR (CKD-EPI)AfAm 72.42 Est GFR (CKD-EPI)NonAf 62.49 POC Glucometer 206 Random Glucose 193 H Calcium 9.1 Phosphorus 3.8 Magnesium 2.4 Total Bilirubin 0.3 Direct Bilirubin AST 21 ALT 21 Alkaline Phosphatase 106 Total Protein 6.9 Albumin 2.9 L 10/26/18 12:15 WBC RBC Hgb Hct MCV MCH MCHC RDW Plt Count MPV Absolute Neuts (auto) Neutrophils % Lymphocytes % Monocytes % Eosinophils % Basophils % Nucleated RBC % Sodium Potassium Chloride Carbon Dioxide Anion Gap BUN Creatinine Est GFR (CKD-EPI)AfAm Est GFR (CKD-EPI)NonAf POC Glucometer 189 Random Glucose Calcium Phosphorus Magnesium Total Bilirubin Direct Bilirubin AST ALT Alkaline Phosphatase Total Protein Albumin Active Medications Aspirin (Asa -) 81 mg PO DAILY [facility] Last Admin: 10/28/18 09:38 Dose: 81 mg Bacitracin (Bacitracin -) 1 applic TP DAILY [facility] Last Admin: 10/28/18 09:39 Dose: 1 applic Carvedilol (Coreg -) 12.5 mg PO BID [facility] Last Admin: 10/28/18 21:45 Dose: 12.5 mg Clopidogrel Bisulfate (Plavix -) 75 mg PO DAILY [facility] Last Admin: 10/28/18 09:38 Dose: 75 mg Collagenase (Santyl -) 1 applic TP DAILY SEVERIANO; Protocol Last Admin: 10/28/18 09:39 Dose: 1 applic Heparin Sodium (Porcine) (Heparin -) 5,000 unit SQ TID [facility] Last Admin: 10/28/18 21:47 Dose: 5,000 unit Vancomycin HCl (Vancomycin (Pre-Docked)) 1,000 mg in 250 mls @ 200 mls/hr IVPB Q24H SEVER[facility]; Protocol Ibuprofen (Motrin -) 600 mg PO Q6H PRN PRN Reason: FEVER Last Admin: 10/28/18 21:45 Dose: 600 mg Insulin Aspart (Novolog Vial Sliding Scale -) 1 vial SQ ACHS SEVERIANO; Protocol Last Admin: 10/28/18 21:48 Dose: 8 units Insulin Detemir (Levemir Vial) 20 units SQ HS [facility] Last Admin: 10/28/18 21:49 Dose: 20 units Losartan Potassium (Cozaar -) 25 mg PO DAILY [facility] Last Admin: 10/28/18 09:38 Dose: 25 mg Simethicone (Mylicon Liquid -) 40 mg PO QID PRN PRN Reason: GAS ASSESSMENT/PLAN: 58 y/o female with PMH DM, HTN, HLD, 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 Failed out-patient treatment with Bactrim. # RUE 4th Digit paronychia with surrounding cellulitis. - S/p I&D - Wound Cx pending - Prior Cx positive for MRSA - IV Zosyn/Vanco as per ID. - Received 1 dose Daptomycin on admission - Further Abx therapy as per ID - MRCP RUE: (+) osteomyelitis - PICC line needed for long-term abx therapy # Hyperkalemia, resolved - Insulin # DM 2 - Uncontrolled, A1C 9.4 - ISS (levemir and novolog) # HTN - Cont. home regimen: losartan, coreg. # Chronic Ulcers LLE - clean, dry, intact - H/o osteomyelitis, completed abx therapy - Cont. wound care. # PAD s/p femoral and popliteal angioplasty - Cont. asa/plavix - F/u need for statin with vascular sx # DVT prophylaxis - Heparin SQ # F/E/N - NS - Cont. to monitor electrolytes - Low sodium/diabetic diet Charli Hummel MD Visit type - Emergency Visit Emergency Visit: No - New Patient This patient is new to me today: No - Critical Care Critical Care patient: No - Discharge Referral Referred to [facility] No ATTENDING PHYSICIAN STATEMENT I saw and evaluated the patient. I reviewed the resident's note and discussed the case with the resident. I agree with the resident's findings and plan as documented. SUBJECTIVE: OBJECTIVE: ASSESSMENT AND PLAN:
--- NOTE | 2018-10-26 16:04 | PN ---
Teaching Attending Note Name of Resident: Charli Hummel ATTENDING PHYSICIAN STATEMENT I saw and evaluated the patient. I reviewed the resident's note and discussed the case with the resident. I agree with the resident's findings and plan as documented. SUBJECTIVE: Ongoing discomfort R 4th digit. No fever/chills. No nausea/vomiting. OBJECTIVE: Afebrile, Hemodynamically Stable. Last Vital Signs Temp Pulse Resp BP Pulse Ox 98.6 F 82 18 135/62 98 10/25/18 18:12 10/25/18 18:12 10/25/18 18:12 10/25/18 18:12 10/25/18 10:25 HEENT- Atraumatic, Normocephalic. Heart - S1, S2, RRR Lungs - clear to auscultation Abdomen - soft, non-tender. Bowel Sounds normal. Extremities: R 4th digit - erythematous distal phalynx with incision and dried blood at incision site on nailbed. Incision site draining, erythema improving. Neurovasularly intact. RLE - gangrenous 4th toe LLE - s/p amputation first three toes. 2 large ulcers on plantar aspect of L foot, non-infected. Laboratory Results - last 24 hr 10/25/18 10/25/18 10/25/18 17:02 17:30 21:11 WBC RBC Hgb Hct MCV MCH MCHC RDW Plt Count MPV Absolute Neuts (auto) Neutrophils % Lymphocytes % Monocytes % Eosinophils % Basophils % Nucleated RBC % Sodium 135 L Potassium 4.7 Chloride 100 Carbon Dioxide 27 Anion Gap 8 BUN 29.0 H Creatinine 1.3 Est GFR (CKD-EPI)AfAm 52.74 Est GFR (CKD-EPI)NonAf 45.50 POC Glucometer 226 295 Random Glucose 222 H Calcium 9.6 Phosphorus Magnesium Total Bilirubin 0.4 Direct Bilirubin 0.1 AST 25 ALT 24 Alkaline Phosphatase 121 H Total Protein 7.8 Albumin 3.3 L 10/26/18 10/26/18 10/26/18 06:02 06:10 06:10 WBC 5.3 RBC 3.15 L Hgb 9.1 L Hct 27.4 L MCV 87.2 MCH 29.0 MCHC 33.3 RDW 14.5 Plt Count 218 MPV 8.7 Absolute Neuts (auto) 2.7 Neutrophils % 51.0 D Lymphocytes % 34.5 D Monocytes % 7.9 D Eosinophils % 5.9 H D Basophils % 0.7 Nucleated RBC % 0 Sodium 140 Potassium 5.0 Chloride 107 Carbon Dioxide 25 Anion Gap 8 BUN 28.3 H Creatinine 1.0 Est GFR (CKD-EPI)AfAm 72.42 Est GFR (CKD-EPI)NonAf 62.49 POC Glucometer 206 Random Glucose 193 H Calcium 9.1 Phosphorus 3.8 Magnesium 2.4 Total Bilirubin 0.3 Direct Bilirubin AST 21 ALT 21 Alkaline Phosphatase 106 Total Protein 6.9 Albumin 2.9 L 10/26/18 12:15 WBC RBC Hgb Hct MCV MCH MCHC RDW Plt Count MPV Absolute Neuts (auto) Neutrophils % Lymphocytes % Monocytes % Eosinophils % Basophils % Nucleated RBC % Sodium Potassium Chloride Carbon Dioxide Anion Gap BUN Creatinine Est GFR (CKD-EPI)AfAm Est GFR (CKD-EPI)NonAf POC Glucometer 189 Random Glucose Calcium Phosphorus Magnesium Total Bilirubin Direct Bilirubin AST ALT Alkaline Phosphatase Total Protein Albumin Current Medications Generic Name Dose Route Start Last Admin Trade Name Freq PRN Reason Stop Dose Admin Aspirin 81 mg 10/26/18 10:00 10/26/18 10:10 Asa - PO 81 mg DAILY SEVERIANO Administration Bacitracin 1 applic 10/25/18 11:00 10/26/18 10:22 Bacitracin - TP 1 applic DAILY SEVERIANO Administration Carvedilol 12.5 mg 10/26/18 10:00 10/26/18 10:09 Coreg - PO 12.5 mg BID SEVERIANO Administration Clopidogrel Bisulfate 75 mg 10/26/18 10:00 10/26/18 10:10 Plavix - PO 75 mg DAILY SEVERIANO Administration Collagenase 1 applic 10/25/18 11:00 10/26/18 10:22 Santyl - TP 1 applic DAILY SEVERIANO Administration Protocol Heparin Sodium (Porcine) 5,000 unit 10/25/18 06:00 10/26/18 14:24 Heparin - SQ 5,000 unit TID SEVERIANO Administration Vancomycin HCl 1,000 mg in 250 mls @ 166.667 mls/hr 10/24/18 17:15 10/26/18 06:19 Vancomycin (Pre-Docked) IVPB 166.667 mls/hr Q12H SEVERIANO Administration Piperacillin Sod/Tazobactam 50 mls @ 100 mls/hr 10/24/18 18:00 10/26/18 10:09 Sod 3.375 gm/ Dextrose IVPB 100 mls/hr Q8H-IV SEVERIANO Administration Protocol Sodium Chloride 1,000 mls @ 83 mls/hr 10/24/18 21:00 10/26/18 01:19 Normal Saline - IV 83 mls/hr ASDIR SEVERIANO Administration Insulin Aspart 1 vial 10/24/18 22:00 10/26/18 12:18 Novolog Vial Sliding Scale - SQ 2 units ACHS SEVERIANO Administration Protocol Insulin Detemir 20 units 10/25/18 22:00 10/25/18 21:24 Levemir Vial SQ 20 units HS SEEVRIANO Administration Losartan Potassium 25 mg 10/26/18 10:00 10/26/18 10:10 Cozaar - PO 25 mg DAILY SEVERIANO Administration Home Medications Medication Instructions Recorded Aspirin [ASA -] 81 mg PO DAILY 05/03/17 Insulin Glargine,Hum.rec.anlog 22 unit SQ DAILY PRN 12/02/17 [Basaglar Kwikpen U-100] Collagenase Clostridium Hist. 1 applic TP DAILY #90 oint...g. 06/12/18 [Santyl] Carvedilol [Coreg -] 12.5 tab PO BID 07/03/18 Acetaminophen [Tylenol] 650 mg PO Q6H PRN 08/15/18 Insulin Lispro [Admelog] 100 unit SQ TID PRN 08/15/18 Basaglar Kwikpen U-100 22 units SQ HS 08/22/18 Clopidogrel 75 mg PO DAILY 08/22/18 Gentamicin 0.1% Ointment 1 applic TP DAILY 09/05/18 [Garamycin 0.1% Ointment -] Losartan Potassium [Cozaar] 25 mg PO DAILY 09/05/18 Multivitamin [Multiple Vitamins] 1 tab PO DAILY 10/03/18 Sulfamethoxazole/Trimethoprim 1 tab PO BID #14 tablet 10/17/18 [Bactrim Ds -] Ascorbate Calcium [Vitamin C] 500 mg PO DAILY 10/25/18 Blood Sugar Diagnostic [Freestyle 1 each TP DAILY 10/25/18 Insulinx Test Strips] Insulin Lispro [Admelog] 12 units SQ DAILY 10/25/18 ASSESSMENT AND PLAN: 58 year old female with past medical history of DM 2, HTN, HLD, PVD s/p femoral artery DCP angioplasty, popliteal artery angioplasty, s/p amputations of first 3 toes L foot, chronic ulcers on plantar aspect L foot (follows with wound clinic), 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 Jones, scheduled for CT Angio in 2 weeks apparently), presented with worsening wound of the right 4th finger that started 4 weeks ago, seen and attended to by both Dr. Jones and Dr. Olvera. Wound Cx on prior I and D grew MRSA. She failed out-patient treatment with Bactrim. 1. Right Hand 4th Digit Paronychia with surrounding Cellulitis and Osteomyelitis. s/p I and D - Wound Cx pending Prior Cx positive for MRSA IV Zosyn/Vanco as per ID. Received 1 dose Daptomycin on admission MRI - Osteomyelitis distal phalynx 4th digit R Hand Further Abx therapy as per ID - will need PICC and long-term Abx therapy. 2. DM 2 - Uncontrolled, A1C 9.4. Maintain on Levemir and Novolog as per sliding scale. 3. HTN - Continue Losartan, Coreg. 4. PAD s/p Femoral and Popliteal Angioplasty - Continue Aspirin/Plavix. Unclear why not on statin - will discuss with Vascular Sx. 5. Hyperkalemia - resolved, will monitor. 6. Chronic Ulcers LLE - clean. Hx osteomyelitis, completed Abx therapy. Continue wound care. DVT Px - Heparin SQ
[2018-10-26] MEDS: INSULIN (LEVEMIR) 100 UNITS/ML UNITS SQ SCH (22:07)
[2018-10-27] MEDS ORDERED: ACETAMINOPHEN 325 MG TABLET (FP) PO ONE (01:24)
[2018-10-27] MEDS ORDERED: DEXTROSE 5%-WATER - 50 ML IVPB ONE ×2 (02:33→09:32)
[2018-10-27] MEDS ORDERED: PIPERACILLIN/TAZOBACTAM 3.375 GM VIAL IVPB ONE ×2 (02:33→09:32)
[2018-10-27] MEDS: PIPERACILLIN/TAZOB 3.375 GM 3.375 GM in DEXTROSE 5%-WATER - 50 ML IVPB SCH ×2 (02:56→10:15)
[2018-10-27] MEDS: VANCOMYCIN 1 GRAM (PRE-DOCKED) 1,000 MG/250 ML BAG IVPB SCH ×2 (06:14→17:59)
[2018-10-27] MEDS: SODIUM CHLORIDE 1,000 ML IV SCH ×2 (06:16→22:59)
[2018-10-27] MEDS: INSULIN SLIDING SCALE (NOVOLOG) 1 VIAL SQ SCH ×4 (06:29→22:55)
[2018-10-27] MEDS: HEPARIN NA (PORCINE) 5,000 UNITS/ML 1ML VIAL SQ SCH ×3 (06:43→22:59)
[2018-10-27 08:09] LABS: BASO % 0.4 % (0-2.0); EOS % 5.7 % (0-4.5); HEMATOCRIT 26.2 % (32.4-45.2); HEMOGLOBIN 8.8 GM/dL (10.7-15.3); LYMPH % 36.5 % (8-40); MCH 29.3 pg (25.7-33.7); MCHC 33.4 g/dl (32.0-36.0); MEAN CELL VOLUME 87.6 fl (80-96); MEAN PLT VOLUME 8.7 fl (7.5-11.1); MONO % 7.4 % (3.8-10.2); PLATELET COUNT 189 K/MM3 (134-434); RBC 2.99 M/mm3 (3.60-5.2); RDW 14.8 % (11.6-15.6); WHITE BLOOD COUNT 5.5 K/mm3 (4.0-10.0)
[2018-10-27 08:56] LABS: ALBUMIN 2.9 g/dl (3.4-5.0); BILIRUBIN,TOTAL 0.3 mg/dL (0.2-1); BLOOD UREA NITROGEN 27.6 mg/dL (7-18); CALCIUM 8.9 mg/dL (8.5-10.1); CREATININE 1.1 mg/dL (0.55-1.3); MAGNESIUM 2.1 mg/dL (1.8-2.4); PHOSPHOROUS 3.6 mg/dL (2.5-4.9); POTASSIUM 4.9 mmol/L (3.5-5.1); TOT PROT 6.6 g/dl (6.4-8.2)
[2018-10-27] MEDS: LOSARTAN POTASSIUM 25 MG TABLET PO SCH (10:15)
[2018-10-27] MEDS: CLOPIDOGREL BISULFATE 75 MG TABLET (FP) PO SCH (10:15)
[2018-10-27] MEDS: CARVEDILOL 12.5 MG TABLET (FP) PO SCH ×2 (10:15→23:00)
[2018-10-27] MEDS: ASPIRIN 81 MG CHEWABLE TABLETS PO SCH (10:15)
[2018-10-27] MEDS ORDERED: SIMETHICONE 40 MG/0.6 ML BOTTLE PO PRN (10:29)
[2018-10-27] MEDS ORDERED: PT OWN MED DRAWER 7, Y5N ONE (11:36)
--- NOTE | 2018-10-27 12:11 | PN ---
Progress Note (short form) - Note Progress Note: ID R 4TH FINGER PARONYCHIA/ CELLULITIS/ OSTEOMYELITIS DRY GANGRENE R 3RD TOE L FOOT ULCERS- NOT INFECTED DM FOR PICC COMPLETE 6W COURSE VANCOMYCIN 1GM Q12H D/C ZOSYN LOCAL WOUND CARE [facility]
[2018-10-27] MEDS: BACITRACIN 15 GM TUBE TOPICAL OINTMENT TP SCH (13:11)
[2018-10-27] MEDS: COLLAGENASE CLOSTRIDIUM HIST. 30 GRAMS TUBE TP SCH (13:11)
[2018-10-27] MEDS: IBUPROFEN 600 MG TABLET (FP) PO PRN (13:39)
--- NOTE | 2018-10-27 15:59 | CONS ---
INFECTIOUS DISEASE CONSULTATION DATE OF CONSULTATION: DATE OF DICTATION: 10/27/2018 HISTORY OF PRESENT ILLNESS: The patient is a 58-year-old, diabetic female who is evaluated for cellulitis of the right 4th finger. The patient had developed a paronychia infection several weeks ago. She had been followed in the wound care center. An incision and drainage was performed on October 06, 2018. Wound culture grew MRSA. She had received a course of oral antibiotic therapy including Keflex and Bactrim. The patient complains of pain at the distal aspect of the right 4th finger. A wound culture was sent on October 25 and it was positive for presumptive MRSA. She denies any associated fever or chills. The patient was hospitalized in July 2018 for a necrotic heel ulcer. She received a course of IV antibiotic therapy for infected foot ulcer and osteomyelitis. Cultures at that time were positive for MRSA and pseudomonas. PAST MEDICAL HISTORY: Positive for diabetes mellitus, diabetic foot infections, peripheral vascular disease, hypertension, hyperlipidemia. PAST SURGICAL HISTORY: Status post amputation of left toes. ALLERGIES: IODINE. SOCIAL HISTORY: She lives at home in the community. She is a nonsmoker and nondrinker. SYSTEMS REVIEW: Neurologic: No loss of consciousness, seizure activity, focal weakness. Cardiac: Negative chest pain or palpitations. Respiratory: Negative cough or sputum production. Gastrointestinal: Negative vomiting or diarrhea. Genitourinary: Negative for urinary tract infection. LABORATORY DATA: White blood cell count 7.9, hematocrit 30.4, platelets 228. Creatinine 1.3. PHYSICAL EXAMINATION: General: On physical examination, she is in no acute distress. Vital Signs: Temperature 98.0, blood pressure 110/60, pulse 80 regular, respirations 20 per minute. Eyes: Sclerae are anicteric. Heart: Heart sounds S1, S2. Lungs: Clear. Abdomen: Soft and nontender. Extremities: Examination of the right 4th finger, there is erythema and swelling involving the distal aspect of the 4th finger from the area of the DIP joint distally. There is swelling and tenderness. No fluctuance or expressible drainage. Examination of the lower extremities, the right 3rd toe appears gangrenous, dry. There is a large left heel and left plantar ulcers which do not appear to be infected. IMPRESSION: 1. Right 4th finger paronychia/cellulitis/osteomyelitis. 2. Dry gangrene of the right 3rd toe. 3. Left foot ulcers. Not clinically infected. 4. Diabetes mellitus. For PICC line, complete 6-week course of vancomycin 1 g IV piggyback every 12 hours. Monitor serum trough level, ESR, C-reactive protein. Local wound care. Follow up in the [facility]. Thank you for the kind referral. SCOUT FRANCO M.D. [id number]
--- NOTE | 2018-10-27 17:24 | DS ---
Physical Exam: PATIENT WAS TO BE DISCHARGED TO SNF FOR [facility] ANTIBIOTICS BUT DID NOT GET SNF PLACEMENT BEFORE WEEKEND. SUBJECTIVE: 58 y/o female with PMH DM, HTN, HLD, gangrene of both feet s/p amputations of 3 left toes (hx of MRSA), PVD with femoral artery DCP angioplasty , popliteal artery angioplasty, whom presented to the ED from wound care due to worsening wound of the right 4th finger that started 4 weeks ago 2.2 trauma from biting fingernail. Dr. Jones and Dr. Olvera I/D found site MRSA (+). On Bactrim for 3 weeks. Vanc and Zosyn given in ED. Pt seen and examined at bedside today. She states her finger is not painful today. She states there is some discharge from the wound; purulent but occurred overnight only. She is aware she is scheduled for PICC line. She denies NVFD. OBJECTIVE: Vital Signs Period Temp Pulse Resp BP Sys/Zhang Pulse Ox Last 24 Hr 97.4 F-98.9 F 68-80 18-20 118-139/60-73 96-96 PHYSICAL EXAM GENERAL: AOx3, in no acute distress. HEAD: NCAT EYES: NATALIE, EOMI, conjunctiva clear. ENT: Ears normal, nares patent, oropharynx clear without exudates. Moist mucous membranes. NECK: Normal range of motion, supple without lymphadenopathy, JVD, or masses. LUNGS: CTAB. No wheezes, and no crackles. No accessory muscle use. HEART: RRR s1 s2 ABDOMEN: Soft, BS present in all 4 quadrants, non-distended, no JVD, MUSCULOSKELETAL: No bony deformities or tenderness. No CVA tenderness. UPPER EXTREMITIES: RUE 4th digit lacerated and covered w bandage. No dc/ purulence. LOWER EXTREMITIES: Well healed bypass scar Lle. L foot with multiple milly amputations, all well healed. L foot with 2 plantar ulcers one at mid foot approximately 3.5x2.5x2cm, other over heel approx 2x1.5x1.5cm. Both clean based with scant fibrinous exudate and serous drainage. No surrounding erythema. No foul odor. R foot with denuded skin at 4th toe, nearly circumferential. Clean based with scant necrotic tissue at lateral edge of 4th toe, no erythema no drainage. NEUROLOGICAL: Cranial nerves II-XII intact. Normal speech. Gait not appreciated. PSYCHIATRIC: Cooperative. Good eye contact. Appropriate mood and affect. SKIN: Warm, dry, normal turgor, no rashes or lesions noted, normal capillary refill. LABS Laboratory Results - last 24 hr 10/26/18 10/26/18 10/27/18 17:18 22:04 04:27 WBC RBC Hgb Hct MCV MCH MCHC RDW Plt Count MPV Absolute Neuts (auto) Neutrophils % Lymphocytes % Monocytes % Eosinophils % Basophils % Nucleated RBC % Sodium Potassium Chloride Carbon Dioxide Anion Gap BUN Creatinine Est GFR (CKD-EPI)AfAm Est GFR (CKD-EPI)NonAf POC Glucometer 267 233 222 Random Glucose Calcium Phosphorus Magnesium Total Bilirubin AST ALT Alkaline Phosphatase Total Protein Albumin 10/27/18 10/27/18 10/27/18 06:06 06:06 06:21 WBC 5.5 RBC 2.99 L Hgb 8.8 L Hct 26.2 L MCV 87.6 MCH 29.3 MCHC 33.4 RDW 14.8 Plt Count 189 MPV 8.7 Absolute Neuts (auto) 2.7 Neutrophils % 50.0 Lymphocytes % 36.5 Monocytes % 7.4 Eosinophils % 5.7 H Basophils % 0.4 Nucleated RBC % 0 Sodium 136 Potassium 4.9 Chloride 104 Carbon Dioxide 25 Anion Gap 7 L BUN 27.6 H Creatinine 1.1 Est GFR (CKD-EPI)AfAm 64.54 Est GFR (CKD-EPI)NonAf 55.69 POC Glucometer 221 Random Glucose 230 H Calcium 8.9 Phosphorus 3.6 Magnesium 2.1 Total Bilirubin 0.3 AST 20 ALT 22 Alkaline Phosphatase 97 Total Protein 6.6 Albumin 2.9 L 10/27/18 10/27/18 11:25 17:01 WBC RBC Hgb Hct MCV MCH MCHC RDW Plt Count MPV Absolute Neuts (auto) Neutrophils % Lymphocytes % Monocytes % Eosinophils % Basophils % Nucleated RBC % Sodium Potassium Chloride Carbon Dioxide Anion Gap BUN Creatinine Est GFR (CKD-EPI)AfAm Est GFR (CKD-EPI)NonAf POC Glucometer 203 235 Random Glucose Calcium Phosphorus Magnesium Total Bilirubin AST ALT Alkaline Phosphatase Total Protein Albumin ASSESSMENT/PLAN: 58 y/o female with PMH DM, HTN, HLD, 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 Failed out-patient treatment with Bactrim. # RUE 4th Digit paronychia with surrounding cellulitis. - S/p I&D - Wound Cx pending - Prior Cx positive for MRSA - Received 1 dose Daptomycin on admission - ID consulted: COMPLETE 6W COURSE VANCOMYCIN 1GM Q12H. D/C ZOSYN - MRCP RUE: (+) osteomyelitis - PICC line needed for long-term abx therapy # Hyperkalemia, resolved - Insulin # DM 2 - Uncontrolled, A1C 9.4 - ISS (levemir and novolog) # HTN - Cont. home regimen: losartan, coreg. # Chronic Ulcers LLE - clean, dry, intact - H/o osteomyelitis, completed abx therapy - Cont. wound care. # PAD s/p femoral and popliteal angioplasty - Cont. asa/plavix - F/u need for statin with vascular sx # DVT prophylaxis - Heparin SQ # F/E/N - NS - Cont. to monitor electrolytes - Low sodium/diabetic diet Charli uHmmel MD Discharge Summary Reason For Visit: PARONYCHIA OF RIGHT RING FINGER Condition: Stable - Instructions Diet, Activity, Other Instructions: YOUR VISIT You came to the hospital because you had a finger infection. You were admitted to the hospital for care of this concern. You were evaluated by the surgeon, and infectious disease physician and treated with IV antibiotics. Your MRI reveals infection of the bone (osteomyelitis) and you will require additional antibiotics via a PICC line. You are being discharged to facility to continue your antibiotic course. MEDICATIONS Please continue to take your home medications as prescribed. You will need to continue taking the following *NEW* medication: - Vancomycin 1 gram IV every 12 hours to complete a 6 week course; last day antibiotics December 05, 2018 for 5 more weeks. ADDITIONAL CARE Please make an appointment to see your primary care provider, Yahir Lloyd, 1 week from today. Please follow up with hand surgeon, Dr. Olvera, within one week of discharge. Please follow up with infectious disease physician, Dr. Bishop, within one-two weeks after discharge at wound care clinic. Please follow up with vascular surgeon, Dr. Jones. You will need additional testing (angiogram of right lower extremity) for your right 4th toe wound. ADDITIONAL INFORMATION Please call 911 or come directly to the emergency department if you experience unusual headache, vision change, shortness of breath, chest pain, numbness, tingling, loss of alertness/awareness, loss of function, unusual bleeding or any alarming symptoms. Referrals: Reji Bishop MD [Staff Physician] - 1 Week Yahir Lloyd PA [Primary Care Provider] - 1 Week Delvin Olvera MD [Staff Physician] - 1 Week Gen Jones DO [Staff Physician] - Disposition: HALFWAY FACILITY - Home Medications Comprehensive Discharge Medication List: Ambulatory Orders Aspirin [ASA -] 81 mg PO DAILY 05/03/17 Collagenase Clostridium Hist. [Santyl] 1 applic TP DAILY #90 oint...g. 06/12/18 Carvedilol [Coreg -] 12.5 tab PO BID 07/03/18 Basaglar Kwikpen U-100 22 units SQ HS 08/22/18 Clopidogrel 75 mg PO DAILY 08/22/18 Gentamicin 0.1% Ointment [Garamycin 0.1% Ointment -] 1 applic TP DAILY 09/05/18 Losartan Potassium [Cozaar] 25 mg PO DAILY 09/05/18 Multivitamin [Multiple Vitamins] 1 tab PO DAILY 10/03/18 Sulfamethoxazole/Trimethoprim [Bactrim DS -] 1 tab PO BID #14 tablet 10/17/18 Ascorbate Calcium [Vitamin C] 500 mg PO BID 10/25/18 Blood Sugar Diagnostic [Freestyle Insulinx Test Strips] 1 each TP DAILY Insulin Lispro [Admelog] 12 units SQ DAILY 10/25/18 Vancomycin 1 Gram (Pre-Docked) [Vancomycin (Pre-Docked)] 1,000 mg IVPB BID 39 Days #78 bag 10/27/18 - Discharge Referral Referred to [facility] Med [facility].C[facility] No ATTENDING PHYSICIAN STATEMENT I saw and evaluated the patient. I reviewed the resident's note and discussed the case with the resident. I agree with the resident's findings and plan as documented. SUBJECTIVE: OBJECTIVE: ASSESSMENT AND PLAN:
--- NOTE | 2018-10-27 17:37 | PN ---
Teaching Attending Note Name of Resident: Charli Hummel ATTENDING PHYSICIAN STATEMENT I saw and evaluated the patient. I reviewed the resident's note and discussed the case with the resident. I agree with the resident's findings and plan as documented. SUBJECTIVE: Discomfort R 4th digit improving. No fever/chills. No nausea/ vomiting. OBJECTIVE: Afebrile, Hemodynamically Stable. Last Vital Signs Temp Pulse Resp BP Pulse Ox 97.4 F L 68 20 118/60 96 10/27/18 13:50 10/27/18 13:50 10/27/18 13:50 10/27/18 13:50 10/27/18 09:00 Heart - S1, S2, RRR Lungs - clear to auscultation Abdomen - soft, non-tender. Bowel Sounds normal. Extremities: R 4th digit - erythematous distal phalynx with incision and dried blood at incision site on nailbed. Incision site draining, erythema improving. Neurovasularly intact. RLE - gangrenous 4th toe LLE - s/p amputation first three toes. 2 large ulcers on plantar aspect of L foot, non-infected. Laboratory Results - last 24 hr 10/26/18 10/26/18 10/27/18 17:18 22:04 04:27 WBC RBC Hgb Hct MCV MCH MCHC RDW Plt Count MPV Absolute Neuts (auto) Neutrophils % Lymphocytes % Monocytes % Eosinophils % Basophils % Nucleated RBC % Sodium Potassium Chloride Carbon Dioxide Anion Gap BUN Creatinine Est GFR (CKD-EPI)AfAm Est GFR (CKD-EPI)NonAf POC Glucometer 267 233 222 Random Glucose Calcium Phosphorus Magnesium Total Bilirubin AST ALT Alkaline Phosphatase Total Protein Albumin 10/27/18 10/27/18 10/27/18 06:06 06:06 06:21 WBC 5.5 RBC 2.99 L Hgb 8.8 L Hct 26.2 L MCV 87.6 MCH 29.3 MCHC 33.4 RDW 14.8 Plt Count 189 MPV 8.7 Absolute Neuts (auto) 2.7 Neutrophils % 50.0 Lymphocytes % 36.5 Monocytes % 7.4 Eosinophils % 5.7 H Basophils % 0.4 Nucleated RBC % 0 Sodium 136 Potassium 4.9 Chloride 104 Carbon Dioxide 25 Anion Gap 7 L BUN 27.6 H Creatinine 1.1 Est GFR (CKD-EPI)AfAm 64.54 Est GFR (CKD-EPI)NonAf 55.69 POC Glucometer 221 Random Glucose 230 H Calcium 8.9 Phosphorus 3.6 Magnesium 2.1 Total Bilirubin 0.3 AST 20 ALT 22 Alkaline Phosphatase 97 Total Protein 6.6 Albumin 2.9 L 10/27/18 10/27/18 11:25 17:01 WBC RBC Hgb Hct MCV MCH MCHC RDW Plt Count MPV Absolute Neuts (auto) Neutrophils % Lymphocytes % Monocytes % Eosinophils % Basophils % Nucleated RBC % Sodium Potassium Chloride Carbon Dioxide Anion Gap BUN Creatinine Est GFR (CKD-EPI)AfAm Est GFR (CKD-EPI)NonAf POC Glucometer 203 235 Random Glucose Calcium Phosphorus Magnesium Total Bilirubin AST ALT Alkaline Phosphatase Total Protein Albumin Current Medications Generic Name Dose Route Start Last Admin Trade Name Freq PRN Reason Stop Dose Admin Aspirin 81 mg 10/26/18 10:00 10/27/18 10:15 Asa - PO 81 mg DAILY [facility] Administration Bacitracin 1 applic 10/25/18 11:00 10/27/18 13:11 Bacitracin - TP 1 applic DAILY [facility] Administration Carvedilol 12.5 mg 10/26/18 10:00 10/27/18 10:15 Coreg - PO 12.5 mg BID [facility] Administration Clopidogrel Bisulfate 75 mg 10/26/18 10:00 10/27/18 10:15 Plavix - PO 75 mg DAILY [facility] Administration Collagenase 1 applic 10/25/18 11:00 10/27/18 13:11 Santyl - TP 1 applic DAILY [facility] Administration Protocol Heparin Sodium (Porcine) 5,000 unit 10/25/18 06:00 10/27/18 15:30 Heparin - SQ 5,000 unit TID [facility] Administration Vancomycin HCl 1,000 mg in 250 mls @ 166.667 mls/hr 10/24/18 17:15 10/27/18 06:14 Vancomycin (Pre-Docked) IVPB 166.667 mls/hr Q12H [facility] Administration Sodium Chloride 1,000 mls @ 83 mls/hr 10/24/18 21:00 10/27/18 06:16 Normal Saline - IV 83 mls/hr ASDIR [facility] Administration Ibuprofen 600 mg 10/27/18 10:29 10/27/18 13:39 Motrin - PO 600 mg Q6H PRN Administration FEVER Insulin Aspart 1 vial 10/24/18 22:00 10/27/18 13:37 Novolog Vial Sliding Scale - SQ 4 units ACHS [facility] Administration Protocol Insulin Detemir 20 units 10/25/18 22:00 10/26/18 22:07 Levemir Vial SQ 20 units HS [facility] Administration Losartan Potassium 25 mg 10/26/18 10:00 10/27/18 10:15 Cozaar - PO 25 mg DAILY [facility] Administration Simethicone 40 mg 10/27/18 10:29 Mylicon Liquid - PO QID PRN GAS Home Medications Medication Instructions Recorded Aspirin [ASA -] 81 mg PO DAILY 05/03/17 Insulin Glargine,Hum.rec.anlog 22 unit SQ DAILY PRN 12/02/17 [Basaglar Kwikpen U-100] Collagenase Clostridium Hist. 1 applic TP DAILY #90 oint...g. 06/12/18 [Santyl] Carvedilol [Coreg -] 12.5 tab PO BID 07/03/18 Acetaminophen [Tylenol] 650 mg PO Q6H PRN 08/15/18 Insulin Lispro [Admelog] 100 unit SQ TID PRN 08/15/18 Basaglar Kwikpen U-100 22 units SQ HS 08/22/18 Clopidogrel 75 mg PO DAILY 08/22/18 Gentamicin 0.1% Ointment 1 applic TP DAILY 09/05/18 [Garamycin 0.1% Ointment -] Losartan Potassium [Cozaar] 25 mg PO DAILY 09/05/18 Multivitamin [Multiple Vitamins] 1 tab PO DAILY 10/03/18 Sulfamethoxazole/Trimethoprim 1 tab PO BID #14 tablet 10/17/18 [Bactrim Ds -] Ascorbate Calcium [Vitamin C] 500 mg PO DAILY 10/25/18 Blood Sugar Diagnostic [Freestyle 1 each TP DAILY 10/25/18 Insulinx Test Strips] Insulin Lispro [Admelog] 12 units SQ DAILY 10/25/18 ASSESSMENT AND PLAN: 58 year old female with past medical history of DM 2, HTN, HLD, PVD s/p femoral artery DCP angioplasty, popliteal artery angioplasty, s/p amputations of first 3 toes L foot, chronic ulcers on plantar aspect L foot (follows with wound clinic), 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 Jones, scheduled for CT Angio in 2 weeks apparently), presented with worsening wound of the right 4th finger that started 4 weeks ago, seen and attended to by both Dr. Jones and Dr. Olvera. Wound Cx on prior I and D grew MRSA. She failed out-patient treatment with Bactrim. 1. Right Hand 4th Digit Paronychia with surrounding Cellulitis and Osteomyelitis. s/p I and D - Wound Cx MRSA MRI - Osteomyelitis distal phalynx 4th digit R Hand Prior Cx positive for MRSA Treated with IV Zosyn/Vanco - for 6 weeks total of Vancomycin as per ID. s/p PICC for Abx therapy For transfer to SNF to complate Abx course. 2. DM 2 - Uncontrolled, A1C 9.4. Maintain on Levemir and Novolog as per sliding scale. Can resume home diabetic regimen on discharge. 3. HTN - Continue Losartan, Coreg. 4. PAD s/p Femoral and Popliteal Angioplasty - Continue Aspirin/Plavix. Unclear why not on statin - for follow up with Vascular Sx. 5. Hyperkalemia - resolved, will monitor. 6. Chronic Ulcers LLE - clean. Hx osteomyelitis, completed Abx therapy. Continue wound care. follows at Wound clinic with Dr. Jones. DVT Px - Heparin SQ Dispo - awaiting authorization for SNF.
[2018-10-27] MEDS ORDERED: INSULIN (NOVOLOG) ASPART 100 UNITS/ML 10ML VIAL ONE (21:01)
[2018-10-27] MEDS: INSULIN (LEVEMIR) 100 UNITS/ML UNITS SQ SCH (22:56)
[2018-10-28] MEDS: VANCOMYCIN 1 GRAM (PRE-DOCKED) 1,000 MG/250 ML BAG IVPB SCH (04:23)
[2018-10-28] MEDS: SODIUM CHLORIDE 1,000 ML IV SCH (04:29)
[2018-10-28] MEDS: INSULIN SLIDING SCALE (NOVOLOG) 1 VIAL SQ SCH ×4 (06:10→21:48)
[2018-10-28] MEDS: HEPARIN NA (PORCINE) 5,000 UNITS/ML 1ML VIAL SQ SCH ×3 (06:10→21:47)
[2018-10-28] MEDS: LOSARTAN POTASSIUM 25 MG TABLET PO SCH (09:38)
[2018-10-28] MEDS: CLOPIDOGREL BISULFATE 75 MG TABLET (FP) PO SCH (09:38)
[2018-10-28] MEDS: ASPIRIN 81 MG CHEWABLE TABLETS PO SCH (09:38)
[2018-10-28] MEDS: CARVEDILOL 12.5 MG TABLET (FP) PO SCH ×2 (09:38→21:45)
[2018-10-28] MEDS: BACITRACIN 15 GM TUBE TOPICAL OINTMENT TP SCH (09:39)
[2018-10-28] MEDS: COLLAGENASE CLOSTRIDIUM HIST. 30 GRAMS TUBE TP SCH (09:39)
--- NOTE | 2018-10-28 11:46 | PN ---
Progress Note, Physician History of Present Illness: C/O R 4TH FINGER PAIN NO DRAINAGE NO F/C VANCO LEVEL NOTED - Current Medication List Current Medications: Active Medications Aspirin (Asa -) 81 mg PO DAILY [facility] Last Admin: 10/28/18 09:38 Dose: 81 mg Bacitracin (Bacitracin -) 1 applic TP DAILY [facility] Last Admin: 10/28/18 09:39 Dose: 1 applic Carvedilol (Coreg -) 12.5 mg PO BID [facility] Last Admin: 10/28/18 09:38 Dose: 12.5 mg Clopidogrel Bisulfate (Plavix -) 75 mg PO DAILY [facility] Last Admin: 10/28/18 09:38 Dose: 75 mg Collagenase (Santyl -) 1 applic TP DAILY [facility]; Protocol Last Admin: 10/28/18 09:39 Dose: 1 applic Heparin Sodium (Porcine) (Heparin -) 5,000 unit SQ TID [facility] Last Admin: 10/28/18 06:10 Dose: 5,000 unit Vancomycin HCl (Vancomycin (Pre-Docked)) 1,000 mg in 250 mls @ 166.667 mls/hr IVPB Q12H [facility] Last Admin: 10/28/18 04:23 Dose: 166.667 mls/hr Sodium Chloride (Normal Saline -) 1,000 mls @ 83 mls/hr IV ASDIR [facility] Last Admin: 10/28/18 04:29 Dose: 83 mls/hr Ibuprofen (Motrin -) 600 mg PO Q6H PRN PRN Reason: FEVER Last Admin: 10/27/18 13:39 Dose: 600 mg Insulin Aspart (Novolog Vial Sliding Scale -) 1 vial SQ ACHS [facility]; Protocol Last Admin: 10/28/18 06:10 Dose: 2 units Insulin Detemir (Levemir Vial) 20 units SQ HS [facility] Last Admin: 10/27/18 22:56 Dose: 20 units Losartan Potassium (Cozaar -) 25 mg PO DAILY [facility] Last Admin: 10/28/18 09:38 Dose: 25 mg Simethicone (Mylicon Liquid -) 40 mg PO QID PRN PRN Reason: GAS - Objective Vital Signs: Vital Signs Temperature 98.3 F 10/28/18 06:11 Pulse Rate 69 10/28/18 06:11 Respiratory Rate 18 10/28/18 06:11 Blood Pressure 103/59 L 10/28/18 06:11 O2 Sat by Pulse Oximetry (%) 98 10/27/18 21:00 Constitutional: Yes: No Distress Eyes: Yes: Conjunctiva Clear Cardiovascular: Yes: Regular Rate and Rhythm, S1, S2 Respiratory: Yes: CTA Bilaterally Gastrointestinal: Yes: Normal Bowel Sounds, Soft. No: Tenderness Extremities: Yes: Other (DECREASED ERYTHEMA/ SWELLING R 4TH DIGIT) Labs: CBC, BMP 10/27/18 06:06 10/27/18 06:06 Assessment/Plan CELLULITIS/OSTEOMYELITIS R 4TH DIGIT + WOUND C/S MRSA DECREASE VANCOMYCIN DOSE TO Q24H COMPLETE 6W COURSE
--- NOTE | 2018-10-28 12:03 | PN ---
Physical Exam: SUBJECTIVE: Patient seen and examined this AM. Tolerated PICC line yesterday with minimal complaints of pain. No new complaints, no acute overnight events as per nursing staff. OBJECTIVE: Vital Signs Period Temp Pulse Resp BP Sys/Zhang Pulse Ox Last 24 Hr 97.4 F-98.3 F 68-71 18-20 103-136/59-74 98 GENERAL: A&Ox3, NAD HEAD: NCAT EYES: PERRL, EOMI ENT: MMM NECK: Supple, No JVD LUNGS: CTAB, no wheezes, no crackles HEART: Regular rate and rhythm, S1, S2 without murmur ABDOMEN: Soft, nontender, nondistended, + bowel sounds, no guarding, no rebound EXTREMITIES: Right 4th digit with healing scab over incision, Erythema improving , 2+ pulses, no edema. Gangrenous Right 4th toe. 2 large ulcers over the left plantar foot wrapped in bandage. NEUROLOGICAL: Cranial nerves II through XII grossly intact. Gross upper extremity sensation intact. SKIN: Warm, dry Laboratory Results - last 24 hr 10/27/18 10/27/18 10/27/18 16:30 16:30 16:30 ESR 108 H POC Glucometer C-Reactive Protein 1.1 H Vancomycin Pre-Dose 17.8 L 10/27/18 10/27/18 10/28/18 17:01 22:55 06:08 ESR POC Glucometer 235 220 167 C-Reactive Protein Vancomycin Pre-Dose 10/28/18 11:35 ESR POC Glucometer 259 C-Reactive Protein Vancomycin Pre-Dose Microbiology 10/24/18 18:44 Blood - Peripheral Venous Blood Culture - Preliminary NO GROWTH OBTAINED AFTER 72 HOURS, INCUBATION TO CONTINUE FOR 2 DAYS. 10/24/18 19:00 Blood - Peripheral Venous Blood Culture - Preliminary NO GROWTH OBTAINED AFTER 72 HOURS, INCUBATION TO CONTINUE FOR 2 DAYS. 10/25/18 17:10 Abscess Gram Stain - Final 10/25/18 17:10 Abscess Wound Culture - Preliminary Presumptive Mrsa (Pbp2a Pos) Active Medications Aspirin (Asa -) 81 mg PO DAILY [facility] Last Admin: 10/28/18 09:38 Dose: 81 mg Bacitracin (Bacitracin -) 1 applic TP DAILY [facility] Last Admin: 10/28/18 09:39 Dose: 1 applic Carvedilol (Coreg -) 12.5 mg PO BID [facility] Last Admin: 10/28/18 09:38 Dose: 12.5 mg Clopidogrel Bisulfate (Plavix -) 75 mg PO DAILY [facility] Last Admin: 10/28/18 09:38 Dose: 75 mg Collagenase (Santyl -) 1 applic TP DAILY [facility]; Protocol Last Admin: 10/28/18 09:39 Dose: 1 applic Heparin Sodium (Porcine) (Heparin -) 5,000 unit SQ TID [facility] Last Admin: 10/28/18 06:10 Dose: 5,000 unit Sodium Chloride (Normal Saline -) 1,000 mls @ 83 mls/hr IV ASDIR [facility] Last Admin: 10/28/18 04:29 Dose: 83 mls/hr Vancomycin HCl (Vancomycin (Pre-Docked)) 1,000 mg in 250 mls @ 200 mls/hr IVPB Q24H [facility]; Protocol Ibuprofen (Motrin -) 600 mg PO Q6H PRN PRN Reason: FEVER Last Admin: 10/27/18 13:39 Dose: 600 mg Insulin Aspart (Novolog Vial Sliding Scale -) 1 vial SQ ACHS [facility]; Protocol Last Admin: 10/28/18 06:10 Dose: 2 units Insulin Detemir (Levemir Vial) 20 units SQ HS [facility] Last Admin: 10/27/18 22:56 Dose: 20 units Losartan Potassium (Cozaar -) 25 mg PO DAILY [facility] Last Admin: 10/28/18 09:38 Dose: 25 mg Simethicone (Mylicon Liquid -) 40 mg PO QID PRN PRN Reason: GAS ASSESSMENT/PLAN: 58 y/o F with PMHx of DM, HTN, HLD, gangrene of b/l LE s/p amputations of 3 left toes (hx of MRSA), PVD with femoral artery DCP angioplasty, popliteal artery angioplasty who presented with worsening Right 4th digit wound after failing out-patient treatment with Bactrim. #R 4th Digit paronychia with surrounding cellulitis and now Osteomyelitis -S/P I&D by Dr. Olvera -Wound Cx MRSA -MRI reveals osteomyelitis of the distal phalynx 4th digit -ID (Dr. Bishop) consulted, appreciate rec's, PICC line placed yesterday, to continue IV Vancomycin for 6 week total #DMII, Uncontrolled -A1c 9.4, will need tighter glycemic control on DC with likely endocrine follow up -BGMs ISS ACHS -Detemir 20u HS #HTN, Controlled -Continue home dose losartan, carvedilol #PAD -s/p femoral and popliteal angioplasty -Continue ASA, Clopidogrel #Hyperkalemia, resolved #FEN -IV NS @ 83 -Replete lytes PRN -Diabetic/sodium diet #PPx -DVT: heparin Dispo: SNF placement on Tuesday Visit type - Emergency Visit Emergency Visit: Yes ED Registration Date: 10/24/18 Care time: The patient presented to the Emergency Department on the above date and was hospitalized for further evaluation of their emergent condition. - New Patient This patient is new to me today: Yes Date on this admission: 10/28/18 - Critical Care Critical Care patient: No ATTENDING PHYSICIAN STATEMENT I saw and evaluated the patient. I reviewed the resident's note and discussed the case with the resident. I agree with the resident's findings and plan as documented. SUBJECTIVE: OBJECTIVE: ASSESSMENT AND PLAN:
--- NOTE | 2018-10-28 15:01 | PN ---
Teaching Attending Note Name of Resident: Saniya Contreras ATTENDING PHYSICIAN STATEMENT I saw and evaluated the patient. I reviewed the resident's note and discussed the case with the resident. I agree with the resident's findings and plan as documented. SUBJECTIVE: Discomfort R 4th digit improving. No fever/chills. No nausea/ vomiting. OBJECTIVE: Afebrile, Hemodynamically Stable. Last Vital Signs Temp Pulse Resp BP Pulse Ox 98.3 F 71 20 116/74 98 10/28/18 10:00 10/28/18 10:10/28/18 10:10/28/18 10:10/27/18 21:00 Heart - S1, S2, RRR Lungs - clear to auscultation Abdomen - soft, non-tender. Bowel Sounds normal. Extremities: R 4th digit - erythematous distal phalynx with incision and dried blood at incision site on nailbed. Incision site draining, erythema improving. Neurovasularly intact. RLE - gangrenous 4th toe LLE - s/p amputation first three toes. 2 large ulcers on plantar aspect of L foot, non-infected. Laboratory Results - last 24 hr 10/27/18 10/27/18 10/27/18 16:30 16:30 16:30 ESR 108 H POC Glucometer C-Reactive Protein 1.1 H Vancomycin Pre-Dose 17.8 L 10/27/18 10/27/18 10/28/18 17:01 22:55 06:08 ESR POC Glucometer 235 220 167 C-Reactive Protein Vancomycin Pre-Dose 10/28/18 11:35 ESR POC Glucometer 259 C-Reactive Protein Vancomycin Pre-Dose Current Medications Generic Name Dose Route Start Last Admin Trade Name Tellyq PRN Reason Stop Dose Admin Aspirin 81 mg 10/26/18 10:00 10/28/18 09:38 Asa - PO 81 mg DAILY [facility] Administration Bacitracin 1 applic 10/25/18 11:00 10/28/18 09:39 Bacitracin - TP 1 applic DAILY [facility] Administration Carvedilol 12.5 mg 10/26/18 10:00 10/28/18 09:38 Coreg - PO 12.5 mg BID [facility] Administration Clopidogrel Bisulfate 75 mg 10/26/18 10:00 10/28/18 09:38 Plavix - PO 75 mg DAILY [facility] Administration Collagenase 1 applic 10/25/18 11:00 10/28/18 09:39 Santyl - TP 1 applic DAILY [facility] Administration Protocol Heparin Sodium (Porcine) 5,000 unit 10/25/18 06:00 10/28/18 14:43 Heparin - SQ 5,000 unit TID [facility] Administration Sodium Chloride 1,000 mls @ 83 mls/hr 10/24/18 21:00 10/28/18 04:29 Normal Saline - IV 83 mls/hr ASDIR [facility] Administration Vancomycin HCl 1,000 mg in 250 mls @ 200 mls/hr 10/29/18 10:00 Vancomycin (Pre-Docked) IVPB Q24H [facility] Protocol Ibuprofen 600 mg 10/27/18 10:29 10/27/18 13:39 Motrin - PO 600 mg Q6H PRN Administration FEVER Insulin Aspart 1 vial 10/24/18 22:00 10/28/18 12:04 Novolog Vial Sliding Scale - SQ 4 units ACHS [facility] Administration Protocol Insulin Detemir 20 units 10/25/18 22:00 10/27/18 22:56 Levemir Vial SQ 20 units HS [facility] Administration Losartan Potassium 25 mg 10/26/18 10:00 10/28/18 09:38 Cozaar - PO 25 mg DAILY [facility] Administration Simethicone 40 mg 10/27/18 10:29 Mylicon Liquid - PO QID PRN GAS Home Medications Medication Instructions Recorded Aspirin [ASA -] 81 mg PO DAILY 05/03/17 Insulin Glargine,Hum.rec.anlog 22 unit SQ DAILY PRN 12/02/17 [Basaglar Kwikpen U-100] Collagenase Clostridium Hist. 1 applic TP DAILY #90 oint...g. 06/12/18 [Santyl] Carvedilol [Coreg -] 12.5 tab PO BID 07/03/18 Acetaminophen [Tylenol] 650 mg PO Q6H PRN 08/15/18 Insulin Lispro [Admelog] 100 unit SQ TID PRN 08/15/18 Basaglar Kwikpen U-100 22 units SQ HS 08/22/18 Clopidogrel 75 mg PO DAILY 08/22/18 Gentamicin 0.1% Ointment 1 applic TP DAILY 09/05/18 [Garamycin 0.1% Ointment -] Losartan Potassium [Cozaar] 25 mg PO DAILY 09/05/18 Multivitamin [Multiple Vitamins] 1 tab PO DAILY 10/03/18 Sulfamethoxazole/Trimethoprim 1 tab PO BID #14 tablet 10/17/18 [Bactrim Ds -] Ascorbate Calcium [Vitamin C] 500 mg PO DAILY 10/25/18 Blood Sugar Diagnostic [Freestyle 1 each TP DAILY 10/25/18 Insulinx Test Strips] Insulin Lispro [Admelog] 12 units SQ DAILY 10/25/18 ASSESSMENT AND PLAN: 58 year old female with past medical history of DM 2, HTN, HLD, PVD s/p femoral artery DCP angioplasty, popliteal artery angioplasty, s/p amputations of first 3 toes L foot, chronic ulcers on plantar aspect L foot (follows with wound clinic), 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 Jones, scheduled for CT Angio in 2 weeks apparently), presented with worsening wound of the right 4th finger that started 4 weeks ago, seen and attended to by both Dr. Jones and Dr. Olvera. Wound Cx on prior I and D grew MRSA. She failed out-patient treatment with Bactrim. 1. Right Hand 4th Digit Paronychia with surrounding Cellulitis and Osteomyelitis. s/p I and D - Wound Cx MRSA MRI - Osteomyelitis distal phalynx 4th digit R Hand Treated with IV Zosyn/Vanco - for 6 weeks total of Vancomycin as per ID. s/p PICC for Abx therapy. For transfer to SNF to complete Abx course. Awaiting auth/bed. 2. DM 2 - Uncontrolled, A1C 9.4. Maintain on Levemir and Novolog as per sliding scale. Can resume home diabetic regimen on discharge. 3. HTN - Continue Losartan, Coreg. 4. PAD s/p Femoral and Popliteal Angioplasty - Continue Aspirin/Plavix. Unclear why not on statin - for follow up with Vascular Sx. 5. Hyperkalemia - resolved, will monitor. 6. Chronic Ulcers LLE - clean. Hx osteomyelitis, completed Abx therapy. Continue wound care. follows at Wound clinic with Dr. Jones. DVT Px - Heparin SQ Dispo - awaiting authorization for SNF.
[2018-10-28] MEDS: IBUPROFEN 600 MG TABLET (FP) PO PRN (21:45)
[2018-10-28] MEDS: INSULIN (LEVEMIR) 100 UNITS/ML UNITS SQ SCH (21:49)
[2018-10-29] MEDS: HEPARIN NA (PORCINE) 5,000 UNITS/ML 1ML VIAL SQ SCH ×3 (06:49→22:28)
[2018-10-29] MEDS: INSULIN SLIDING SCALE (NOVOLOG) 1 VIAL SQ SCH ×4 (06:50→22:27)
[2018-10-29] MEDS ORDERED: INSULIN (LEVEMIR) 100 UNITS/ML UNITS SQ ONE (07:45)
[2018-10-29] MEDS ORDERED: INSULIN (NOVOLOG) ASPART 100 UNITS/ML 10ML VIAL ONE (07:45)
[2018-10-29] MEDS: VANCOMYCIN 1 GRAM (PRE-DOCKED) 1,000 MG/250 ML BAG IVPB SCH (10:55)
[2018-10-29] MEDS: COLLAGENASE CLOSTRIDIUM HIST. 30 GRAMS TUBE TP SCH (10:55)
[2018-10-29] MEDS: LOSARTAN POTASSIUM 25 MG TABLET PO SCH (10:55)
[2018-10-29] MEDS: CARVEDILOL 12.5 MG TABLET (FP) PO SCH ×2 (10:55→22:28)
[2018-10-29] MEDS: ASPIRIN 81 MG CHEWABLE TABLETS PO SCH (10:55)
[2018-10-29] MEDS: BACITRACIN 15 GM TUBE TOPICAL OINTMENT TP SCH (10:55)
[2018-10-29] MEDS: CLOPIDOGREL BISULFATE 75 MG TABLET (FP) PO SCH (10:55)
--- NOTE | 2018-10-29 13:26 | PN ---
Progress Note (short form) - Note Progress Note: SUBJECTIVE: Discomfort R 4th digit much improved. No fever/chills. No nausea/ vomiting. OBJECTIVE: Afebrile, Hemodynamically Stable. Last Vital Signs Temp Pulse Resp BP Pulse Ox 97.9 F 67 18 123/70 98 10/29/18 10:00 10/29/18 10:00 10/29/18 10:00 10/29/18 10:00 10/28/18 21:00 Heart - S1, S2, RRR Lungs - clear to auscultation Abdomen - soft, non-tender. Bowel Sounds normal. Extremities: R 4th digit - erythematous distal phalynx with incision and dried blood at incision site on nailbed. Erythema improving. Neurovasularly intact. RUE PICC RLE - gangrenous 4th toe LLE - s/p amputation first three toes. 2 large ulcers on plantar aspect of L foot, non-infected. Laboratory Results - last 24 hr 10/28/18 10/28/18 10/29/18 16:28 21:42 06:47 POC Glucometer 277 322 238 10/29/18 11:52 POC Glucometer 276 Current Medications Generic Name Dose Route Start Last Admin Trade Name Freq PRN Reason Stop Dose Admin Aspirin 81 mg 10/26/18 10:00 10/29/18 10:55 Asa - PO 81 mg DAILY [facility] Administration Bacitracin 1 applic 10/25/18 11:00 10/29/18 10:55 Bacitracin - TP 1 applic DAILY [facility] Administration Carvedilol 12.5 mg 10/26/18 10:00 10/29/18 10:55 Coreg - PO 12.5 mg BID [facility] Administration Clopidogrel Bisulfate 75 mg 10/26/18 10:00 10/29/18 10:55 Plavix - PO 75 mg DAILY [facility] Administration Collagenase 1 applic 10/25/18 11:00 10/29/18 10:55 Santyl - TP 1 applic DAILY [facility] Administration Protocol Heparin Sodium (Porcine) 5,000 unit 10/25/18 06:00 10/29/18 06:49 Heparin - SQ 5,000 unit TID [facility] Administration Vancomycin HCl 1,000 mg in 250 mls @ 200 mls/hr 10/29/18 10:00 10/29/18 10:55 Vancomycin (Pre-Docked) IVPB 200 mls/hr Q24H [facility] Administration Protocol Ibuprofen 600 mg 10/27/18 10:29 10/28/18 21:45 Motrin - PO 600 mg Q6H PRN Administration FEVER Insulin Aspart 1 vial 10/24/18 22:00 10/29/18 11:53 Novolog Vial Sliding Scale - SQ 6 units ACHS [facility] Administration Protocol Insulin Detemir 20 units 10/25/18 22:00 10/28/18 21:49 Levemir Vial SQ 20 units HS [facility] Administration Losartan Potassium 25 mg 10/26/18 10:00 10/29/18 10:55 Cozaar - PO 25 mg DAILY [facility] Administration Simethicone 40 mg 10/27/18 10:29 Mylicon Liquid - PO QID PRN GAS Home Medications Medication Instructions Recorded Aspirin [ASA -] 81 mg PO DAILY 05/03/17 Insulin Glargine,Hum.rec.anlog 22 unit SQ DAILY PRN 12/02/17 [Basaglar Kwikpen U-100] Collagenase Clostridium Hist. 1 applic TP DAILY #90 oint...g. 06/12/18 [Santyl] Carvedilol [Coreg -] 12.5 tab PO BID 07/03/18 Acetaminophen [Tylenol] 650 mg PO Q6H PRN 08/15/18 Insulin Lispro [Admelog] 100 unit SQ TID PRN 08/15/18 Basaglar Kwikpen U-100 22 units SQ HS 08/22/18 Clopidogrel 75 mg PO DAILY 08/22/18 Gentamicin 0.1% Ointment 1 applic TP DAILY 09/05/18 [Garamycin 0.1% Ointment -] Losartan Potassium [Cozaar] 25 mg PO DAILY 09/05/18 Multivitamin [Multiple Vitamins] 1 tab PO DAILY 10/03/18 Sulfamethoxazole/Trimethoprim 1 tab PO BID #14 tablet 10/17/18 [Bactrim Ds -] Ascorbate Calcium [Vitamin C] 500 mg PO DAILY 10/25/18 Blood Sugar Diagnostic [Freestyle 1 each TP DAILY 10/25/18 Insulinx Test Strips] Insulin Lispro [Admelog] 12 units SQ DAILY 10/25/18 ASSESSMENT AND PLAN: 58 year old female with past medical history of DM 2, HTN, HLD, PVD s/p femoral artery DCP angioplasty, popliteal artery angioplasty, s/p amputations of first 3 toes L foot, chronic ulcers on plantar aspect L foot (follows with wound clinic), 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 Jones, scheduled for CT Angio in 2 weeks apparently), presented with worsening wound of the right 4th finger that started 4 weeks ago, seen and attended to by both Dr. Jones and Dr. Olvera. Wound Cx on prior I and D grew MRSA. She failed out-patient treatment with Bactrim. 1. Right Hand 4th Digit Paronychia with surrounding Cellulitis and Osteomyelitis. s/p I and D - Wound Cx MRSA MRI - Osteomyelitis distal phalynx 4th digit R Hand Initially treated with IV Zosyn/Vanco - for 6 weeks total of Vancomycin as per ID. s/p PICC for Abx therapy. For transfer to SNF to complete Abx course. Awaiting auth/bed. 2. DM 2 - Uncontrolled, A1C 9.4. Maintain on Levemir and Novolog as per sliding scale. Can resume home diabetic regimen on discharge. 3. HTN - Continue Losartan, Coreg. 4. PAD s/p Femoral and Popliteal Angioplasty - Continue Aspirin/Plavix. Unclear why not on statin - for follow up with Vascular Sx on discharge 5. Hyperkalemia - resolved 6. Chronic Ulcers LLE - clean. Hx osteomyelitis, completed Abx therapy. Continue wound care. follows at Wound clinic with Dr. Jones. DVT Px - Heparin SQ Dispo - awaiting authorization/placement for SNF. Visit type - Emergency Visit Emergency Visit: Yes ED Registration Date: 10/24/18 Care time: The patient presented to the Emergency Department on the above date and was hospitalized for further evaluation of their emergent condition. - New Patient This patient is new to me today: No - Critical Care Critical Care patient: No - Discharge Referral Referred to [facility] Med P.C.: No
[2018-10-29 15:30] LABS: BASO % 0.7 % (0-2.0); EOS % 4.8 % (0-4.5); HEMATOCRIT 28.4 % (32.4-45.2); HEMOGLOBIN 9.5 GM/dL (10.7-15.3); LYMPH % 33.2 % (8-40); MCH 29.3 pg (25.7-33.7); MCHC 33.5 g/dl (32.0-36.0); MEAN CELL VOLUME 87.5 fl (80-96); MEAN PLT VOLUME 8.5 fl (7.5-11.1); MONO % 6.9 % (3.8-10.2); NEUT % 54.4 % (42.8-82.8); PLATELET COUNT 222 K/MM3 (134-434); RBC 3.25 M/mm3 (3.60-5.2); WHITE BLOOD COUNT 6.5 K/mm3 (4.0-10.0)
[2018-10-29 16:02] LABS: BLOOD UREA NITROGEN 31.1 mg/dL (7-18); CALCIUM 9.4 mg/dL (8.5-10.1)
[2018-10-29] MEDS: INSULIN (LEVEMIR) 100 UNITS/ML UNITS SQ SCH (22:28)
[2018-10-30] MEDS: HEPARIN NA (PORCINE) 5,000 UNITS/ML 1ML VIAL SQ SCH ×3 (06:41→21:07)
[2018-10-30] MEDS: INSULIN SLIDING SCALE (NOVOLOG) 1 VIAL SQ SCH ×4 (06:41→21:07)
[2018-10-30] MEDS: BACITRACIN 15 GM TUBE TOPICAL OINTMENT TP SCH (10:01)
[2018-10-30] MEDS: ASPIRIN 81 MG CHEWABLE TABLETS PO SCH (10:01)
[2018-10-30] MEDS: CLOPIDOGREL BISULFATE 75 MG TABLET (FP) PO SCH (10:01)
[2018-10-30] MEDS: CARVEDILOL 12.5 MG TABLET (FP) PO SCH ×2 (10:01→21:07)
[2018-10-30] MEDS: COLLAGENASE CLOSTRIDIUM HIST. 30 GRAMS TUBE TP SCH (10:02)
[2018-10-30] MEDS: VANCOMYCIN 1 GRAM (PRE-DOCKED) 1,000 MG/250 ML BAG IVPB SCH (10:02)
[2018-10-30] MEDS: LOSARTAN POTASSIUM 25 MG TABLET PO SCH (10:02)
--- NOTE | 2018-10-30 10:55 | PN ---
Progress Note (short form) - Note Progress Note: VAscular surgery Right third toe gangrene. Pt seen in office two weeks ago, pt refused any intervention. Now with gangrene. Will need angiogram. Will do CTA to look at runoff into foot. CAn do angio mehrdad afternoon. Gen Jones DO
--- NOTE | 2018-10-30 15:52 | PN ---
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 Dr. Jones and Dr. Olvera I/D found site MRSA (+). On Bactrim for 3 weeks. Vanc and Zosyn given in ED. Pt seen and examined at bedside today. PICC line placed. She states her RIGHT 4th finger is not painful today. Pt reports painful 3rd digit of RIGHT foot. She states the toe is and hurts. RIGHT reich pain also reported. She denies NVFD. OBJECTIVE: Vital Signs Period Temp Pulse Resp BP Sys/Zhang Pulse Ox Last 24 Hr 97.8 F-98.4 F 67-69 18-20 106-129/43-79 99 GENERAL: AOx3, in no acute distress. HEAD: NCAT EYES: NATALIE, EOMI, conjunctiva clear. ENT: Ears normal, nares patent, oropharynx clear without exudates. Moist mucous membranes. NECK: Normal range of motion, supple without lymphadenopathy, JVD, or masses. LUNGS: CTAB. No wheezes, and no crackles. No accessory muscle use. HEART: RRR s1 s2 ABDOMEN: Soft, BS present in all 4 quadrants, non-distended, no JVD, MUSCULOSKELETAL: No bony deformities or tenderness. No CVA tenderness. UPPER EXTREMITIES: PICC in RIGHT AC. RUE 4th digit lacerated and covered w bandage. No dc/purulence. LOWER EXTREMITIES: RIGHT 3rd digit of foot blue, pulseless, and cold. Well healed bypass scar LLE. LEFT foot with multiple milly amputations, all well healed. No foul odor. NEUROLOGICAL: Cranial nerves II-XII intact. Normal speech. Gait not appreciated. PSYCHIATRIC: Cooperative. Good eye contact. Appropriate mood and affect. SKIN: Warm, dry, normal turgor, no rashes or lesions noted, normal capillary refill. Laboratory Results - last 24 hr 10/29/18 10/29/18 10/29/18 15:00 16:20 22:07 Sodium 134 L Potassium 5.0 Chloride 102 Carbon Dioxide 25 Anion Gap 8 BUN 31.1 H Creatinine 1.0 Est GFR (CKD-EPI)AfAm 72.42 Est GFR (CKD-EPI)NonAf 62.49 POC Glucometer 274 238 Random Glucose 294 H Calcium 9.4 10/30/18 10/30/18 06:37 11:50 Sodium Potassium Chloride Carbon Dioxide Anion Gap BUN Creatinine Est GFR (CKD-EPI)AfAm Est GFR (CKD-EPI)NonAf POC Glucometer 176 276 Random Glucose Calcium Active Medications Aspirin (Asa -) 81 mg PO DAILY [facility] Last Admin: 10/30/18 10:01 Dose: 81 mg Bacitracin (Bacitracin -) 1 applic TP DAILY [facility] Last Admin: 10/30/18 10:01 Dose: 1 applic Carvedilol (Coreg -) 12.5 mg PO BID [facility] Last Admin: 10/30/18 21:07 Dose: 12.5 mg Clopidogrel Bisulfate (Plavix -) 75 mg PO DAILY [facility] Last Admin: 10/30/18 10:01 Dose: 75 mg Collagenase (Santyl -) 1 applic TP DAILY [facility]; Protocol Last Admin: 10/30/18 10:02 Dose: 1 applic Heparin Sodium (Porcine) (Heparin -) 5,000 unit SQ TID [facility] Last Admin: 10/30/18 21:07 Dose: Not Given Vancomycin HCl (Vancomycin (Pre-Docked)) 1,000 mg in 250 mls @ 200 mls/hr IVPB Q24H [facility]; Protocol Last Admin: 10/30/18 10:02 Dose: 200 mls/hr Ibuprofen (Motrin -) 600 mg PO Q6H PRN PRN Reason: FEVER Last Admin: 10/30/18 21:20 Dose: 600 mg Insulin Aspart (Novolog Vial Sliding Scale -) 1 vial SQ ACHS [facility]; Protocol Last Admin: 10/30/18 21:07 Dose: 8 units Insulin Detemir (Levemir Vial) 20 units SQ HS [facility] Last Admin: 10/30/18 21:06 Dose: 20 units Losartan Potassium (Cozaar -) 25 mg PO DAILY [facility] Last Admin: 10/30/18 10:02 Dose: 25 mg Simethicone (Mylicon Liquid -) 40 mg PO QID PRN PRN Reason: GAS ASSESSMENT/PLAN: 58 y/o female with PMH DM, HTN, HLD, 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 Failed out-patient treatment with bactrim. Today pt demonstrated gangrenous RIGHT LE 3rd digit. # RUE 4th Digit paronychia with surrounding cellulitis. - PICC line in now RIGHT AC for long-term abx therapy - S/p I&D - Wound Cx pending - Prior Cx positive for MRSA - Received 1 dose Daptomycin on admission - ID consulted: COMPLETE 6W COURSE VANCOMYCIN 1GM Q12H. D/C ZOSYN - MRCP RUE: (+) osteomyelitis # RLE 3rd digit gangrene - Blue, pulsesless, and cold - Vascular surgery consulted - CTA to look at runoff into foot - F/u angiogram and recommendations # Hyperkalemia, resolved - Insulin # DM 2 - Uncontrolled, A1C 9.4 - ISS (levemir and novolog) # HTN - Cont. home regimen: losartan, coreg. # Chronic Ulcers LLE - clean, dry, intact - H/o osteomyelitis, completed abx therapy - Cont. wound care. # PAD s/p femoral and popliteal angioplasty - Cont. asa/plavix - F/u need for statin with vascular sx # DVT prophylaxis - Heparin SQ # F/E/N - NS - Cont. to monitor electrolytes - Low sodium/diabetic diet Charli Hummel MD Visit type - Emergency Visit Emergency Visit: No - New Patient This patient is new to me today: No - Critical Care Critical Care patient: No - Discharge Referral Referred to [facility] Med P.C.: No ATTENDING PHYSICIAN STATEMENT I saw and evaluated the patient. I reviewed the resident's note and discussed the case with the resident. I agree with the resident's findings and plan as documented. SUBJECTIVE: OBJECTIVE: ASSESSMENT AND PLAN:
[2018-10-30] MEDS ORDERED: PT OWN MED DRAWER 7, Y5N ONE (17:31)
--- NOTE | 2018-10-30 18:17 | PN ---
Teaching Attending Note Name of Resident: Charli Hummel ATTENDING PHYSICIAN STATEMENT I saw and evaluated the patient. I reviewed the resident's note and discussed the case with the resident. I agree with the resident's findings and plan as documented. SUBJECTIVE: Discomfort R hand 4th digit much improved. No fever/chills. No nausea/vomiting. Complains of pain R foot 3rd toe. OBJECTIVE: Afebrile, Hemodynamically Stable. Last Vital Signs Temp Pulse Resp BP Pulse Ox 97.8 F 68 20 106/43 L 99 10/30/18 14:58 10/30/18 14:58 10/30/18 14:58 10/30/18 14:58 10/30/18 09:00 Heart - S1, S2, RRR Lungs - clear to auscultation Abdomen - soft, non-tender. Bowel Sounds normal. Extremities: R hand 4th digit - erythematous distal phalynx with incision and dried blood at incision site on nailbed. Erythema improving. Neurovasularly intact. RUE PICC RLE - gangrenous 3rd toe LLE - s/p amputation first three toes. 2 large ulcers on plantar aspect of L foot, non-infected. Laboratory Results - last 24 hr 10/29/18 10/30/18 10/30/18 22:07 06:37 11:50 POC Glucometer 238 176 276 10/30/18 16:53 POC Glucometer 227 Current Medications Generic Name Dose Route Start Last Admin Trade Name Freq PRN Reason Stop Dose Admin Aspirin 81 mg 10/26/18 10:00 10/30/18 10:01 Asa - PO 81 mg DAILY [facility] Administration Bacitracin 1 applic 10/25/18 11:00 10/30/18 10:01 Bacitracin - TP 1 applic DAILY [facility] Administration Carvedilol 12.5 mg 10/26/18 10:00 10/30/18 10:01 Coreg - PO 12.5 mg BID [facility] Administration Clopidogrel Bisulfate 75 mg 10/26/18 10:00 10/30/18 10:01 Plavix - PO 75 mg DAILY [facility] Administration Collagenase 1 applic 10/25/18 11:00 10/30/18 10:02 Santyl - TP 1 applic DAILY [facility] Administration Protocol Heparin Sodium (Porcine) 5,000 unit 10/25/18 06:00 10/30/18 16:37 Heparin - SQ 5,000 unit TID [facility] Administration Vancomycin HCl 1,000 mg in 250 mls @ 200 mls/hr 10/29/18 10:00 10/30/18 10:02 Vancomycin (Pre-Docked) IVPB 200 mls/hr Q24H [facility] Administration Protocol Ibuprofen 600 mg 10/27/18 10:29 10/28/18 21:45 Motrin - PO 600 mg Q6H PRN Administration FEVER Insulin Aspart 1 vial 10/24/18 22:00 10/30/18 16:55 Novolog Vial Sliding Scale - SQ 4 units ACHS [facility] Administration Protocol Insulin Detemir 20 units 10/25/18 22:00 10/29/18 22:28 Levemir Vial SQ 20 units HS [facility] Administration Losartan Potassium 25 mg 10/26/18 10:00 10/30/18 10:02 Cozaar - PO 25 mg DAILY [facility] Administration Simethicone 40 mg 10/27/18 10:29 Mylicon Liquid - PO QID PRN GAS Home Medications Medication Instructions Recorded Aspirin [ASA -] 81 mg PO DAILY 05/03/17 Insulin Glargine,Hum.rec.anlog 22 unit SQ DAILY PRN 12/02/17 [Basaglar Kwikpen U-100] Collagenase Clostridium Hist. 1 applic TP DAILY #90 oint...g. 06/12/18 [Santyl] Carvedilol [Coreg -] 12.5 tab PO BID 07/03/18 Acetaminophen [Tylenol] 650 mg PO Q6H PRN 08/15/18 Insulin Lispro [Admelog] 100 unit SQ TID PRN 08/15/18 Basaglar Kwikpen U-100 22 units SQ HS 08/22/18 Clopidogrel 75 mg PO DAILY 08/22/18 Gentamicin 0.1% Ointment 1 applic TP DAILY 09/05/18 [Garamycin 0.1% Ointment -] Losartan Potassium [Cozaar] 25 mg PO DAILY 09/05/18 Multivitamin [Multiple Vitamins] 1 tab PO DAILY 10/03/18 Sulfamethoxazole/Trimethoprim 1 tab PO BID #14 tablet 10/17/18 [Bactrim Ds -] Ascorbate Calcium [Vitamin C] 500 mg PO DAILY 10/25/18 Blood Sugar Diagnostic [Freestyle 1 each TP DAILY 10/25/18 Insulinx Test Strips] Insulin Lispro [Admelog] 12 units SQ DAILY 10/25/18 ASSESSMENT AND PLAN: 58 year old female with past medical history of DM 2, HTN, HLD, PVD s/p femoral artery DCP angioplasty, popliteal artery angioplasty, s/p amputations of first 3 toes L foot, chronic ulcers on plantar aspect L foot (follows with wound clinic), 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 Jones, scheduled for CT Angio in 2 weeks apparently), presented with worsening wound of the right 4th finger that started 4 weeks ago, seen and attended to by both Dr. Jones and Dr. Olvera. Wound Cx on prior I and D grew MRSA. She failed out-patient treatment with Bactrim. 1. Right Hand 4th Digit Paronychia with surrounding Cellulitis and Osteomyelitis. s/p I and D - Wound Cx MRSA MRI - Osteomyelitis distal phalynx 4th digit R Hand Initially treated with IV Zosyn/Vanco - for 6 weeks total of Vancomycin as per ID. s/p PICC for Abx therapy. For transfer to SNF to complete Abx course. 2. R Foot 3rd toe gangrene Evaluated by Vascular Sx - for CTA with runoff today and possible Angio tomorrow. 3. DM 2 - Uncontrolled, A1C 9.4. Maintain on Levemir and Novolog as per sliding scale. Can resume home diabetic regimen on discharge. 4. HTN - Continue Losartan, Coreg. 5. PAD s/p Femoral and Popliteal Angioplasty - Continue Aspirin/Plavix. Unclear why not on statin - will defer to Vascular Sx. 6. Hyperkalemia - resolved 7. Chronic Ulcers LLE - clean. Hx osteomyelitis, completed Abx therapy. Continue wound care. follows at Wound clinic with Dr. Jones. DVT Px - Heparin SQ Dispo - accepted to SNF - for transfer after Vascular Ix/Intervention.
[2018-10-30] MEDS: INSULIN (LEVEMIR) 100 UNITS/ML UNITS SQ SCH (21:06)
[2018-10-30] MEDS: IBUPROFEN 600 MG TABLET (FP) PO PRN (21:20)
[2018-10-31] MEDS: HEPARIN NA (PORCINE) 5,000 UNITS/ML 1ML VIAL SQ SCH ×2 (05:59→22:04)
[2018-10-31] MEDS: INSULIN SLIDING SCALE (NOVOLOG) 1 VIAL SQ SCH ×4 (06:00→22:04)
[2018-10-31 07:49] LABS: BASO % 0.7 % (0-2.0); EOS % 3.9 % (0-4.5); HEMATOCRIT 26.9 % (32.4-45.2); MCH 29.4 pg (25.7-33.7); MCHC 33.4 g/dl (32.0-36.0); MEAN CELL VOLUME 88.1 fl (80-96); MEAN PLT VOLUME 8.8 fl (7.5-11.1); MONO % 7.2 % (3.8-10.2); NEUT % 55.2 % (42.8-82.8); PLATELET COUNT 202 K/MM3 (134-434); RBC 3.05 M/mm3 (3.60-5.2); RDW 15.2 % (11.6-15.6); WHITE BLOOD COUNT 7.1 K/mm3 (4.0-10.0)
[2018-10-31 08:35] LABS: ALBUMIN 2.9 g/dl (3.4-5.0); BILIRUBIN,TOTAL 0.4 mg/dL (0.2-1); MAGNESIUM 2.1 mg/dL (1.8-2.4); PHOSPHOROUS 4.1 mg/dL (2.5-4.9); POTASSIUM 4.6 mmol/L (3.5-5.1); TOT PROT 6.9 g/dl (6.4-8.2)
[2018-10-31] MEDS: BACITRACIN 15 GM TUBE TOPICAL OINTMENT TP SCH (10:11)
[2018-10-31] MEDS: COLLAGENASE CLOSTRIDIUM HIST. 30 GRAMS TUBE TP SCH (10:12)
[2018-10-31] MEDS: CARVEDILOL 12.5 MG TABLET (FP) PO SCH ×2 (10:31→22:04)
[2018-10-31] MEDS: LOSARTAN POTASSIUM 25 MG TABLET PO SCH (10:31)
[2018-10-31] MEDS ORDERED: methylPREDNISolone NA SUCC 40 MG/1 ML VIAL IVPUSH ONE (10:45)
[2018-10-31] MEDS: ASPIRIN 81 MG CHEWABLE TABLETS PO SCH (10:55)
[2018-10-31] MEDS: CLOPIDOGREL BISULFATE 75 MG TABLET (FP) PO SCH (10:55)
[2018-10-31] MEDS: VANCOMYCIN 1 GRAM (PRE-DOCKED) 1,000 MG/250 ML BAG IVPB SCH (10:56)
[2018-10-31] MEDS ORDERED: HEPARIN NA (PORCINE) 5,000 UNITS/ML 1ML VIAL ONE (13:17)
[2018-10-31] MEDS ORDERED: LIDOCAINE HCL 1%, 10 MG/ML (20ML VIAL) ONE (13:17)
--- NOTE | 2018-10-31 13:55 | PN ---
Teaching Attending Note Name of Resident: Charli Hummel ATTENDING PHYSICIAN STATEMENT I saw and evaluated the patient. I reviewed the resident's note and discussed the case with the resident. I agree with the resident's findings and plan as documented. SUBJECTIVE:feeling jittery after steroids given this Am in anticipation for angiogram. states pain is controlled. denies Cp, SOB, fever, chills, N/V/C/D cardiac workup last year negative. no CP or SOB on minimal exertion. no complication with anesthesia in the past OBJECTIVE: Last Vital Signs Temp Pulse Resp BP Pulse Ox 97.1 F L 71 18 131/65 99 10/31/18 10:00 10/31/18 10:00 10/31/18 10:00 10/31/18 10:00 10/31/18 09:00 General NAD CV S1 S2 RRR no murmur/rub/gallop Lungs CTA B/L no wheezing/rales/rhonchi Abdomen soft NT/ND Extremities R hand 4th digit with mild swelling of the entire digit increased medial of nail bed, tender no drainage with manipulation. pulse intact R foot 3rd digit distal tuft is blue, proximal portion is necrotic. 4th digit is tender and slightly swollen. 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 Jones, scheduled for CT Angio in 2 weeks apparently), presented with worsening wound of the right 4th finger that started 4 weeks ago, seen and attended to by both Dr. Jones and Dr. Olvera. Wound Cx on prior I and D grew MRSA. She failed out-patient treatment with Bactrim. 1. Right Hand 4th Digit Paronychia with surrounding Cellulitis and Osteomyelitis - s/p I&D by Dr Olvera. Cx +MRSA. on vanco will need 6 weeks total. PICC line already inserted and accepted to SNF for prison IV abx 2. R foot 3rd digit dry gangrene- plan for angio and amputation today. pre- medicated with steroids due to contrast allergy. will f/u recommendations per vasc surgery. wound care management per them 3. DM 2 - Uncontrolled, A1C 9.4. Maintain on Levemir and Novolog as per sliding scale. Can resume home diabetic regimen on discharge. 4. HTN - Continue Losartan, Coreg. 5. PAD s/p Femoral and Popliteal Angioplasty - Continue Aspirin/Plavix. Unclear why not on statin - will defer to Vascular Sx. 6. Hyperkalemia - resolved 7. Chronic Ulcers LLE - clean. Hx osteomyelitis, completed Abx therapy. Continue wound care. follows at Wound clinic with Dr. Jones. 8. DVT Px - Heparin SQ 9. plan for transfer to SNF for [employer] IV abx once medically optimized
[2018-10-31] MEDS ORDERED: MIDAZOLAM HCL 2 MG/2 ML SINGLE DOSE VIAL ONE ×4 (14:16→15:17)
--- NOTE | 2018-10-31 14:31 | PN ---
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 Dr. Jones and Dr. Olvera I/D found site MRSA (+). On Bactrim for 3 weeks. Vanc and Zosyn given in ED. Pt seen and examined at bedside today. PICC line in place. She states her RIGHT 4th finger is not painful today. Pt reports CONTINUED painful 3rd digit of RIGHT foot. She states the toe is and hurts. RIGHT reich pain also reported. She denies NVFD. OBJECTIVE: Vital Signs Period Temp Pulse Resp BP Sys/Zhang Pulse Ox Last 24 Hr 97.1 F-98.2 F 68-80 18-20 106-144/43-77 99-99 GENERAL: The patient is awake, alert, and fully oriented, in no acute distress. HEAD: Normal with no signs of trauma. EYES: PERRL, extraocular movements intact, sclera anicteric, conjunctiva clear. No ptosis. ENT: Ears normal, nares patent, oropharynx clear without exudates, moist mucous membranes. NECK: Trachea midline, full range of motion, supple. LUNGS: Breath sounds equal, clear to auscultation bilaterally, no wheezes, no crackles, no accessory muscle use. HEART: Regular rate and rhythm, S1, S2 without murmur, rub or gallop. ABDOMEN: Soft, nontender, nondistended, normoactive bowel sounds, no guarding, no rebound, no hepatosplenomegaly, no masses. EXTREMITIES: PICC in RIGHT AC. LEFT LE amputation of digits. RIGHT 3rd LE digit (+) for necrosis and loss of subq fat. 2+ pulses, warm, well-perfused, no edema. NEUROLOGICAL: Cranial nerves II through XII grossly intact. Normal speech, gait not observed. PSYCH: Normal mood, normal affect. SKIN: Warm, dry, normal turgor, no rashes or lesions noted Laboratory Results - last 24 hr 10/30/18 10/30/18 10/31/18 16:53 20:54 05:52 WBC RBC Hgb Hct MCV MCH MCHC RDW Plt Count MPV Absolute Neuts (auto) Neutrophils % Lymphocytes % Monocytes % Eosinophils % Basophils % Nucleated RBC % Sodium Potassium Chloride Carbon Dioxide Anion Gap BUN Creatinine Est GFR (CKD-EPI)AfAm Est GFR (CKD-EPI)NonAf POC Glucometer 227 304 204 Random Glucose Calcium Phosphorus Magnesium Total Bilirubin AST ALT Alkaline Phosphatase Total Protein Albumin 10/31/18 10/31/18 06:10 06:10 WBC 7.1 RBC 3.05 L Hgb 9.0 L Hct 26.9 L MCV 88.1 MCH 29.4 MCHC 33.4 RDW 15.2 Plt Count 202 MPV 8.8 Absolute Neuts (auto) 3.9 Neutrophils % 55.2 Lymphocytes % 33.0 Monocytes % 7.2 Eosinophils % 3.9 Basophils % 0.7 Nucleated RBC % 0 Sodium 135 L Potassium 4.6 Chloride 104 Carbon Dioxide 22 Anion Gap 9 BUN 34.0 H Creatinine 1.0 Est GFR (CKD-EPI)AfAm 72.42 Est GFR (CKD-EPI)NonAf 62.49 POC Glucometer Random Glucose 208 H Calcium 9.0 Phosphorus 4.1 Magnesium 2.1 Total Bilirubin 0.4 AST 17 ALT 21 Alkaline Phosphatase 98 Total Protein 6.9 Albumin 2.9 L Active Medications Aspirin (Asa -) 81 mg PO DAILY [facility] Bacitracin (Bacitracin -) 1 applic TP DAILY [facility] Carvedilol (Coreg -) 12.5 mg PO BID [facility] Last Admin: 10/31/18 22:04 Dose: 12.5 mg Clopidogrel Bisulfate (Plavix -) 75 mg PO DAILY [facility] Collagenase (Santyl -) 1 applic TP DAILY [facility]; Protocol Fentanyl (Sublimaze Injection -) 50 mcg IVPUSH Q5M PRN PRN Reason: PAIN-PACU ORDER X 4 DOSES ONLY Heparin Sodium (Porcine) (Heparin -) 5,000 unit SQ TID [facility] Last Admin: 10/31/18 22:04 Dose: 5,000 unit Vancomycin HCl (Vancomycin (Pre-Docked)) 1,000 mg in 250 mls @ 200 mls/hr IVPB Q24H [facility]; Protocol Ibuprofen (Motrin -) 600 mg PO Q6H PRN PRN Reason: FEVER Insulin Aspart (Novolog Vial Sliding Scale -) 1 vial SQ ACHS [facility]; Protocol Last Admin: 10/31/18 22:04 Dose: 10 units Insulin Detemir (Levemir Vial) 20 units SQ HS [facility] Last Admin: 10/31/18 22:05 Dose: 20 units Losartan Potassium (Cozaar -) 25 mg PO DAILY [facility] Ondansetron HCl (Zofran Injection) 4 mg IVPUSH Q6H PRN PRN Reason: NAUSEA AND/OR VOMITING Oxycodone HCl (Roxicodone -) 10 mg PO Q4H PRN PRN Reason: PAIN LEVEL 6-10 Last Admin: 10/31/18 22:02 Dose: 10 mg Promethazine HCl (Phenergan Injection -) 12.5 mg IVPUSH Q6H PRN PRN Reason: NAUSEA-FOR RESCUE AFTER 15 MIN Simethicone (Mylicon Liquid -) 40 mg PO QID PRN PRN Reason: GAS ASSESSMENT/PLAN: 58 y/o female with PMH DM, HTN, HLD, 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 Failed out-patient treatment with bactrim. Today pt demonstrated gangrenous RIGHT LE 3rd digit. # RUE 4th Digit paronychia with surrounding cellulitis. - PICC line in now RIGHT AC for long-term abx therapy - S/p I&D - Wound Cx pending - Prior Cx positive for MRSA - Received 1 dose Daptomycin on admission - ID consulted: COMPLETE 6W COURSE VANCOMYCIN 1GM Q12H. D/C ZOSYN - MRCP RUE: (+) osteomyelitis # Gangrenous RIGHT 3rd toe - Vascular surgery consulted: S/p aortogram, RLE angiogram, SFA angioplasty with stent - Black, pulsesless, and cold - CTA to look at runoff into foot - F/u angiogram and recommendations # Hyperkalemia, resolved - Insulin # DM 2 - Uncontrolled, A1C 9.4 - ISS (levemir and novolog) # HTN - Cont. home regimen: losartan, coreg. # Chronic Ulcers LLE - clean, dry, intact - H/o osteomyelitis, completed abx therapy - Cont. wound care. # PAD s/p femoral and popliteal angioplasty - Cont. asa/plavix - F/u need for statin with vascular sx # DVT prophylaxis - Heparin SQ # F/E/N - NS - Cont. to monitor electrolytes - Low sodium/diabetic diet Charli Hummel MD Visit type - Emergency Visit Emergency Visit: No - New Patient This patient is new to me today: No - Critical Care Critical Care patient: No - Discharge Referral Referred to [facility] Med P.C.: No ATTENDING PHYSICIAN STATEMENT I saw and evaluated the patient. I reviewed the resident's note and discussed the case with the resident. I agree with the resident's findings and plan as documented. SUBJECTIVE: OBJECTIVE: ASSESSMENT AND PLAN:
[2018-10-31] MEDS ORDERED: LIDOCAINE HCL 1%, 10 MG/ML (20ML VIAL) SNB ONE (14:32)
[2018-10-31] MEDS ORDERED: PROMETHAZINE HCL 25 MG/1 ML VIAL IVPUSH PRN ×2 (15:00→16:28)
[2018-10-31] MEDS ORDERED: ONDANSETRON 4 MG/2 ML VIAL IVPUSH PRN ×2 (15:00→16:28)
[2018-10-31] MEDS ORDERED: oxyCODONE HCL 5 MG TABLET PO PRN (15:00)
[2018-10-31] MEDS ORDERED: PROTAMINE SULFATE 50 MG/5 ML VIAL ONE (15:18)
[2018-10-31 15:30] VITALS: BMI 32.2
--- NOTE | 2018-10-31 15:42 | OP ---
Operative Note - Note: Operative Date: 10/31/18 Pre-Operative Diagnosis: Right Third toe gangrene Operation: Aortogram, RLE angiogram, SFA angioplasty with stent Findings: SFA occlusion Post-Operative Diagnosis: Same as Pre-op Surgeon: Gen Jones Anesthesia: Fractional Estimated Blood Loss (mls): 50 Operative Report Dictated: Yes
[2018-10-31] MEDS ORDERED: SIMETHICONE 40 MG/0.6 ML BOTTLE PO PRN (16:28)
[2018-10-31] MEDS ORDERED: INSULIN (NOVOLOG) ASPART 100 UNITS/ML 10ML VIAL ONE (19:09)
[2018-10-31] MEDS ORDERED: INSULIN (LEVEMIR) 100 UNITS/ML UNITS SQ SCH (22:00)
[2018-10-31] MEDS: oxyCODONE HCL 5 MG TABLET PO PRN (22:02)
[2018-11-01] MEDS ORDERED: INSULIN (NOVOLOG) ASPART 100 UNITS/ML 10ML VIAL ONE ×2 (05:56→18:06)
[2018-11-01] MEDS: INSULIN SLIDING SCALE (NOVOLOG) 1 VIAL SQ SCH ×4 (06:15→21:37)
[2018-11-01] MEDS: HEPARIN NA (PORCINE) 5,000 UNITS/ML 1ML VIAL SQ SCH ×4 (06:15→21:32)
[2018-11-01 07:56] LABS: BASO % 0.1 % (0-2.0); HEMATOCRIT 29.6 % (32.4-45.2); HEMOGLOBIN 9.7 GM/dL (10.7-15.3); LYMPH % 7.1 % (8-40); MCH 29.1 pg (25.7-33.7); MCHC 32.8 g/dl (32.0-36.0); MEAN CELL VOLUME 88.8 fl (80-96); MEAN PLT VOLUME 8.9 fl (7.5-11.1); MONO % 2.3 % (3.8-10.2); NEUT % 90.5 % (42.8-82.8); PLATELET COUNT 240 K/MM3 (134-434); RBC 3.34 M/mm3 (3.60-5.2); RDW 15.3 % (11.6-15.6); WHITE BLOOD COUNT 15.3 K/mm3 (4.0-10.0)
[2018-11-01 08:28] LABS: ALBUMIN 3.1 g/dl (3.4-5.0); BILIRUBIN,TOTAL 0.4 mg/dL (0.2-1); BLOOD UREA NITROGEN 38.1 mg/dL (7-18); CALCIUM 9.3 mg/dL (8.5-10.1); CREATININE 1.3 mg/dL (0.55-1.3); TOT PROT 7.7 g/dl (6.4-8.2)
[2018-11-01] MEDS: VANCOMYCIN 1 GRAM (PRE-DOCKED) 1,000 MG/250 ML BAG IVPB SCH (10:10)
[2018-11-01] MEDS: CLOPIDOGREL BISULFATE 75 MG TABLET (FP) PO SCH (10:49)
[2018-11-01] MEDS: ASPIRIN 81 MG CHEWABLE TABLETS PO SCH (10:49)
[2018-11-01] MEDS: LOSARTAN POTASSIUM 25 MG TABLET PO SCH (10:50)
[2018-11-01] MEDS: CARVEDILOL 12.5 MG TABLET (FP) PO SCH ×2 (11:09→21:35)
[2018-11-01] MEDS: BACITRACIN 15 GM TUBE TOPICAL OINTMENT TP SCH (11:09)
[2018-11-01] MEDS: COLLAGENASE CLOSTRIDIUM HIST. 30 GRAMS TUBE TP SCH (11:10)
--- NOTE | 2018-11-01 13:22 | PN ---
Teaching Attending Note Name of Resident: Charli Hummel ATTENDING PHYSICIAN STATEMENT I saw and evaluated the patient. I reviewed the resident's note and discussed the case with the resident. I agree with the resident's findings and plan as documented. SUBJECTIVE:pain is improved. denies Cp, SOB, fever, chills, N/V/C/D OBJECTIVE: Last Vital Signs Temp Pulse Resp BP Pulse Ox 98.2 F 78 18 126/61 99 11/01/18 06:12 11/01/18 06:12 11/01/18 06:12 11/01/18 06:12 10/31/18 21:00 General NAD CV S1 S2 RRR no murmur/rub/gallop Lungs CTA B/L no wheezing/rales/rhonchi Abdomen soft NT/ND Extremities R hand 4th digit with mild swelling of the entire digit increased medial of nail bed, tender no drainage with manipulation. pulse intact R foot 3rd digit distal tuft is blue, proximal portion is necrotic. 4th digit is tender and slightly swollen. 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 Jones, scheduled for CT Angio in 2 weeks apparently), presented with worsening wound of the right 4th finger that started 4 weeks ago, seen and attended to by both Dr. Jones and Dr. Olvera. Wound Cx on prior I and D grew MRSA. She failed out-patient treatment with Bactrim. 1. Right Hand 4th Digit Paronychia with surrounding Cellulitis and Osteomyelitis - s/p I&D by Dr Olvera. Cx +MRSA. on vanco will need 6 weeks total. PICC line already inserted and accepted to SNF for press tender long goods IV abx 2. R foot 3rd digit dry gangrene-s/p angio with SFA stent 10/31. toe was not amputated. will call podiatry for evaluation. pain control. 3. DM 2 - Uncontrolled, A1C 9.4. Maintain on Levemir and Novolog as per sliding scale. Can resume home diabetic regimen on discharge. 4. HTN - Continue Losartan, Coreg. 5. PAD s/p Femoral and Popliteal Angioplasty - Continue Aspirin/Plavix. Unclear why not on statin - will defer to Vascular Sx. 6. Hyperkalemia - resolved 7. Chronic Ulcers LLE - clean. Hx osteomyelitis, completed Abx therapy. Continue wound care. follows at Wound clinic with Dr. Jones. 8. DVT Px - Heparin SQ 9. plan for transfer to SNF for [employer] goods IV abx once medically optimized
--- NOTE | 2018-11-01 13:34 | PN ---
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 Dr. Jones and Dr. Olvera I/D found site MRSA (+). On Bactrim for 3 weeks. Vanc and Zosyn given in ED. Pt s/p aortogram, RLE angiogram, SFA angioplasty with stent No acute events over night. Pt seen and examined at bedside today. PICC line in place. She states her RIGHT 4th finger is not painful today. Pt reports CONTINUED painful 3rd digit of RIGHT foot. She states the toe is and hurts. She denies NVFD. OBJECTIVE: Vital Signs Period Temp Pulse Resp BP Sys/Zhang Pulse Ox Last 24 Hr 97 F-98.2 F 62-81 16-20 120-156/50-78 97-100 GENERAL: The patient is awake, alert, and fully oriented, in no acute distress. HEAD: Normal with no signs of trauma. EYES: PERRL, extraocular movements intact, sclera anicteric, conjunctiva clear. No ptosis. ENT: Ears normal, nares patent, oropharynx clear without exudates, moist mucous membranes. NECK: Trachea midline, full range of motion, supple. LUNGS: Breath sounds equal, clear to auscultation bilaterally, no wheezes, no crackles, no accessory muscle use. HEART: Regular rate and rhythm, S1, S2 without murmur, rub or gallop. ABDOMEN: Soft, nontender, nondistended, normoactive bowel sounds, no guarding, no rebound, no hepatosplenomegaly, no masses. EXTREMITIES: PICC in RIGHT AC. LEFT LE amputation of digits. RIGHT 3rd LE digit (+) for necrosis and loss of subq fat. 2+ pulses, warm, well-perfused, no edema. NEUROLOGICAL: Cranial nerves II through XII grossly intact. Normal speech, gait not observed but pt walks with cane to bathroom per RN. PSYCH: Normal mood, normal affect. SKIN: Warm, dry, normal turgor, no rashes or lesions noted Laboratory Results - last 24 hr 10/31/18 10/31/18 10/31/18 12:25 16:49 22:01 WBC RBC Hgb Hct MCV MCH MCHC RDW Plt Count MPV Absolute Neuts (auto) Neutrophils % Lymphocytes % Monocytes % Eosinophils % Basophils % Nucleated RBC % Sodium Potassium Chloride Carbon Dioxide Anion Gap BUN Creatinine Est GFR (CKD-EPI)AfAm Est GFR (CKD-EPI)NonAf POC Glucometer 213 296 378 Random Glucose Calcium Total Bilirubin AST ALT Alkaline Phosphatase Total Protein Albumin 11/01/18 11/01/18 11/01/18 06:14 06:45 06:45 WBC 15.3 H RBC 3.34 L Hgb 9.7 L Hct 29.6 L MCV 88.8 MCH 29.1 MCHC 32.8 RDW 15.3 Plt Count 240 MPV 8.9 Absolute Neuts (auto) 13.9 H Neutrophils % 90.5 H Lymphocytes % 7.1 L D Monocytes % 2.3 L Eosinophils % 0.0 D Basophils % 0.1 Nucleated RBC % 0 Sodium 135 L Potassium 5.0 Chloride 101 Carbon Dioxide 23 Anion Gap 11 BUN 38.1 H Creatinine 1.3 Est GFR (CKD-EPI)AfAm 52.74 Est GFR (CKD-EPI)NonAf 45.50 POC Glucometer 346 Random Glucose 318 H Calcium 9.3 Total Bilirubin 0.4 AST 17 ALT 21 Alkaline Phosphatase 90 Total Protein 7.7 Albumin 3.1 L 11/01/18 12:23 WBC RBC Hgb Hct MCV MCH MCHC RDW Plt Count MPV Absolute Neuts (auto) Neutrophils % Lymphocytes % Monocytes % Eosinophils % Basophils % Nucleated RBC % Sodium Potassium Chloride Carbon Dioxide Anion Gap BUN Creatinine Est GFR (CKD-EPI)AfAm Est GFR (CKD-EPI)NonAf POC Glucometer 449 Random Glucose Calcium Total Bilirubin AST ALT Alkaline Phosphatase Total Protein Albumin Active Medications Aspirin (Asa -) 81 mg PO DAILY [facility] Last Admin: 11/01/18 10:49 Dose: 81 mg Bacitracin (Bacitracin -) 1 applic TP DAILY [facility] Last Admin: 11/01/18 11:09 Dose: 1 applic Carvedilol (Coreg -) 12.5 mg PO BID [facility] Last Admin: 11/01/18 21:35 Dose: 12.5 mg Clopidogrel Bisulfate (Plavix -) 75 mg PO DAILY [facility] Last Admin: 11/01/18 10:49 Dose: 75 mg Collagenase (Santyl -) 1 applic TP DAILY [facility]; Protocol Last Admin: 11/01/18 11:10 Dose: 1 applic Fentanyl (Sublimaze Injection -) 50 mcg IVPUSH Q5M PRN PRN Reason: PAIN-PACU ORDER X 4 DOSES ONLY Heparin Sodium (Porcine) (Heparin -) 5,000 unit SQ TID [facility] Last Admin: 11/01/18 21:32 Dose: 5,000 unit Vancomycin HCl (Vancomycin (Pre-Docked)) 1,000 mg in 250 mls @ 200 mls/hr IVPB Q24H [facility]; Protocol Last Admin: 11/01/18 10:10 Dose: 200 mls/hr Ibuprofen (Motrin -) 600 mg PO Q6H PRN PRN Reason: FEVER Insulin Aspart (Novolog Vial Sliding Scale -) 1 vial SQ ACHS [facility]; Protocol Last Admin: 11/01/18 21:37 Dose: 12 units Insulin Detemir (Levemir Vial) 25 units SQ HS [facility] Last Admin: 11/01/18 21:35 Dose: 25 unit Losartan Potassium (Cozaar -) 25 mg PO DAILY [facility] Last Admin: 11/01/18 10:50 Dose: 25 mg Ondansetron HCl (Zofran Injection) 4 mg IVPUSH Q6H PRN PRN Reason: NAUSEA AND/OR VOMITING Oxycodone HCl (Roxicodone -) 10 mg PO Q4H PRN PRN Reason: PAIN LEVEL 6-10 Last Admin: 11/01/18 21:40 Dose: 10 mg Promethazine HCl (Phenergan Injection -) 12.5 mg IVPUSH Q6H PRN PRN Reason: NAUSEA-FOR RESCUE AFTER 15 MIN Simethicone (Mylicon Liquid -) 40 mg PO QID PRN PRN Reason: GAS ASSESSMENT/PLAN: 58 y/o female with PMH DM, HTN, HLD, 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 Failed out-patient treatment with bactrim. Today pt demonstrated gangrenous RIGHT LE 3rd digit. # RUE 4th Digit paronychia with surrounding cellulitis. - PICC line in now RIGHT AC for long-term abx therapy - s/p aortogram, RLE angiogram, SFA angioplasty with stent (31 Oct 2018, Dr. Jones) - S/p I&D of RUE 4th digit dorsal DIP - Wound Cx pending - Prior Cx positive for MRSA - Received 1 dose Daptomycin on admission - ID consulted: COMPLETE 6W COURSE VANCOMYCIN 1GM Q12H. D/C ZOSYN - MRCP RUE: (+) osteomyelitis # Gangrenous RIGHT 3rd toe - Vascular surgery consulted: S/p aortogram, RLE angiogram, SFA angioplasty with stent - Intact as of today: Black, pulsesless, and cold - Podiatry consulted: plan for amputation 02 Nov 2018 or 03 nov 2018 # Hyperkalemia, resolved - Insulin # DM 2 - Uncontrolled, A1C 9.4 - ISS (levemir and novolog) # HTN - Cont. home regimen: losartan, coreg. # Chronic Ulcers LLE - clean, dry, intact - H/o osteomyelitis, completed abx therapy - Cont. wound care. # PAD - s/p aortogram, RLE angiogram, SFA angioplasty with stent - Cont. asa/plavix - F/u need for statin with vascular sx # DVT prophylaxis - Heparin SQ # F/E/N - NS - Cont. to monitor electrolytes - Low sodium/diabetic diet Charli Hummel MD Visit type - Emergency Visit Emergency Visit: No - New Patient This patient is new to me today: No - Critical Care Critical Care patient: No - Discharge Referral Referred to [facility] Med P.C.: No ATTENDING PHYSICIAN STATEMENT I saw and evaluated the patient. I reviewed the resident's note and discussed the case with the resident. I agree with the resident's findings and plan as documented. SUBJECTIVE: OBJECTIVE: ASSESSMENT AND PLAN:
--- NOTE | 2018-11-01 15:25 | CONSULT ---
Consult - text type - Consultation Consultation Note: 58 y/o female well known to my partner from the wound care center seen and evaluted today with right 3rd digit gangrene. Had angio and revasc done yesterday by Dr. kang. Patient states she understands she is going to need an amputation of the digit. Is being treated for chronic non healing wound on the left foot as well which she is followed by Dr. Keene int he wound care center. Denies any other complaints. O: DP/PT on the right non palp but dopplerable, foot warm to touch, no erythema noted, mod pitting edema noted, right third digit completely necrotic with blue blister noted at the distal aspect, no pain on palpation at this time, no other discoloration of the digits noted at this time, no streaking erythema noted, no other signs of infection A: 58 y/o female s/p revacularization of the RLE with progressive gangrene of the 3rd digit. P: Evaluated and reviewed Will discuss with Dr. Keene and will plan for amputation either tomorrow or tuesday depending on surgical scheduling ability Can keep dressed with wet to dry DSD for now. Will place necessary orders once surgery time is determined Will follow
--- NOTE | 2018-11-01 15:39 | OP ---
DATE OF OPERATION: 10/31/2018 PREOPERATIVE DIAGNOSIS: Right 3rd toe gangrene. POSTOPERATIVE DIAGNOSIS: Right 3rd toe gangrene. PROCEDURE: Aortogram, right lower extremity angiogram, right superficial femoral artery angioplasty with right superficial femoral artery stent. SURGEON: Gen Hadley DO ANESTHESIA: Fractional. BLOOD LOSS: 50 mL. The patient is a 58-year-old female who has right 3rd toe gangrene. It was decided that she would need an angiogram. She was admitted here in the hospital for something going on with her hand and a paronychia, and in the meantime, her gangrene on the right foot worsened. The patient was consented for the procedure, understanding all risks, benefits, alternatives. She was then taken to the operating room. Once in the operating room, she was laid on the operating room table in a supine manner. The area of the right and left groin were prepped and draped in a sterile surgical manner. We then injected 10 mL lidocaine 1% over the left common femoral artery under ultrasound guidance. We then took our micropuncture needle and punctured the left common femoral artery under ultrasound guidance. Micropuncture wire was inserted, micropuncture sheath was inserted, and a traditional 5-Malay sheath was inserted. A 0.035 floppy guidewire was inserted into the aorta, followed by Omni Flush catheter. We then shot an aortogram via hand injection, showing that the aorta and the iliac arteries were without any disease. We then went up and over using our 0.035 floppy guidewire and placed our wire in the right common femoral artery, followed by our Omni Flush catheter. We then shot an angiogram of the right lower extremity via hand injection, showing that the common femoral artery and the profunda were patent, but the SFA was severely diseased and occluded from the origin all the way down to the adductor canal, the patient had essentially 1 vessel, popliteal artery was patent, TP trunk was patent, patient had main runoff into the foot was the AT. At this point, we placed a 0.035 stiff guidewire into the SFA. We removed our Omni Flush catheter. We placed a 6 x 45 crossover sheath. Then 5000 units of IV heparin was administered to the patient. We then used our 0.035 floppy guidewire, our stiff guidewire, and got it down into the popliteal artery and into the anterior tibial artery. At this point, we were able to cross the occlusion and we then used a 5 x 220 balloon and performed angioplasty of the occluded SFA. Completion angiogram now showed that the SFA was dissected in multiple areas. At this point, we used two 6 x 120's and one 6 x 100 LifeStent, and the stents were placed in the SFA. They were ballooned in place using a 5 x 220 balloon. Completion angiogram now showed that the SFA was patent, there was good brisk flow, patient had good in-line runoff flow into the AT and into the foot. At this point, no more intervention was needed. We brought our sheath up and over. A StarClose device was successfully deployed in the left common femoral artery. Pressure was held for 5 minutes. After there was no more bleeding, the area was wet and dried and Dermabond was placed. Patient tolerated this procedure with no complications. Patient transferred to PACU in stable condition. Patient now has a dopplerable pulse in the right DP. GEN HADLEY DO NP/[id number]
--- NOTE | 2018-11-01 16:31 | PN ---
Progress Note (short form) - Note Progress Note: 58yo F s/p RLE angio and stent placement POD 1. Pt seen and examined at bedside. Pt denies any pain or swelling in her groin. Denies fever, chills, n/ v. Last Vital Signs Temp Pulse Resp BP Pulse Ox 98.0 F 70 18 134/64 99 11/01/18 15:21 11/01/18 15:21 11/01/18 15:21 11/01/18 15:21 11/01/18 09:00 CBC, BMP 11/01/18 06:45 11/01/18 06:45 PE: Gen: A&O x3 Resp; breathing comfortably Lt groin incision is clean with no erythema or discharge, no pulsatile mass. Rt foot: gangrene Rt 3rd toe Problem List - Problems (1) PAD (peripheral artery disease) Assessment/Plan: Plan -pt appears to be doing well, pt will need wound care by podiatry for gangrenous toe -pt should follow up with Vascular as outpatient for follow up. -please contact vascular service if any changes. Code(s): I73.9 - PERIPHERAL VASCULAR DISEASE, UNSPECIFIED
[2018-11-01] MEDS: INSULIN (LEVEMIR) 100 UNITS/ML UNITS SQ SCH (21:35)
[2018-11-01] MEDS: oxyCODONE HCL 5 MG TABLET PO PRN (21:40)
[2018-11-02] MEDS: INSULIN SLIDING SCALE (NOVOLOG) 1 VIAL SQ SCH ×4 (06:10→21:43)
[2018-11-02] MEDS: HEPARIN NA (PORCINE) 5,000 UNITS/ML 1ML VIAL SQ SCH ×3 (06:10→21:42)
[2018-11-02 07:31] LABS: BASO % 0.1 % (0-2.0); EOS % 0.3 % (0-4.5); HEMATOCRIT 26.2 % (32.4-45.2); HEMOGLOBIN 8.6 GM/dL (10.7-15.3); LYMPH % 18.4 % (8-40); MCH 29.2 pg (25.7-33.7); MCHC 32.9 g/dl (32.0-36.0); MEAN CELL VOLUME 88.9 fl (80-96); MEAN PLT VOLUME 9.3 fl (7.5-11.1); MONO % 6.1 % (3.8-10.2); NEUT % 75.1 % (42.8-82.8); PLATELET COUNT 180 K/MM3 (134-434); RBC 2.95 M/mm3 (3.60-5.2); WHITE BLOOD COUNT 11.4 K/mm3 (4.0-10.0)
[2018-11-02 07:52] LABS: BILIRUBIN,TOTAL 0.2 mg/dL (0.2-1); CALCIUM 9.2 mg/dL (8.5-10.1); CREATININE 1.1 mg/dL (0.55-1.3); POTASSIUM 4.1 mmol/L (3.5-5.1); TOT PROT 6.9 g/dl (6.4-8.2)
[2018-11-02] MEDS: CARVEDILOL 12.5 MG TABLET (FP) PO SCH ×3 (10:25→21:42)
[2018-11-02] MEDS: LOSARTAN POTASSIUM 25 MG TABLET PO SCH ×2 (10:25→12:33)
[2018-11-02] MEDS: CLOPIDOGREL BISULFATE 75 MG TABLET (FP) PO SCH ×2 (10:25→12:33)
[2018-11-02] MEDS: ASPIRIN 81 MG CHEWABLE TABLETS PO SCH ×2 (10:25→12:33)
[2018-11-02] MEDS: VANCOMYCIN 1 GRAM (PRE-DOCKED) 1,000 MG/250 ML BAG IVPB SCH (10:37)
[2018-11-02] MEDS: IBUPROFEN 600 MG TABLET (FP) PO PRN ×2 (12:32→21:41)
--- NOTE | 2018-11-02 12:32 | PN ---
Progress Note (short form) - Note Progress Note: Podiatry F/U: Seen/evaluated at bedside NAD. Pain persistent to right foot/leg. Afebrile. S /p RLE angioplasty with Dr. Jones. Has worsening right third digit gangrenous changes. Well known to me from wound healing center. CHERELLE: R foot: pedal pulses dopplerable TG wnl. There is dry gangrene of the right third digit with mummification, no purulence, no fluctuance, no streaking cellulitis, no signs of active infection. Moderate tenderness to palpation. L foot: plantar heel and plantar arch diabetic ulcers with fibrogranular bases, regular borders, no probing to bone, no purulence, no fluctuance, no streaking cellulitis, no signs of infection Imp: 58 year old diabetic, PVD female with right third digit gangrene 1. IV abx per ID 2. Continue local care left foot 3. Discussed treatment options with patient. Plan for right third digit amputation on Tuesday. Will be discharged to SNF after that. Will follow. Regine Keene DPM
--- NOTE | 2018-11-02 13:42 | PN ---
Teaching Attending Note Name of Resident: Charli Hummel ATTENDING PHYSICIAN STATEMENT I saw and evaluated the patient. I reviewed the resident's note and discussed the case with the resident. I agree with the resident's findings and plan as documented. SUBJECTIVE:c/o ankle pain. denies Cp, SOB, fever, chills, N/V/C/D OBJECTIVE: Last Vital Signs Temp Pulse Resp BP Pulse Ox 98.5 F 79 20 136/66 99 11/02/18 10:00 11/02/18 10:00 11/02/18 10:00 11/02/18 10:00 11/01/18 21:00 General NAD Extremities R medial malleolus with point tenderness. 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 Jones, scheduled for CT Angio in 2 weeks apparently), presented with worsening wound of the right 4th finger that started 4 weeks ago, seen and attended to by both Dr. Jones and Dr. Olvera. Wound Cx on prior I and D grew MRSA. She failed out-patient treatment with Bactrim. 1. Right Hand 4th Digit Paronychia with surrounding Cellulitis and Osteomyelitis - s/p I&D by Dr Olvera. Cx +MRSA. on vanco will need 6 weeks total. PICC line already inserted and accepted to SNF for longterm IV abx 2. R foot 3rd digit dry gangrene-s/p angio with SFA stent 10/31. spoke with podiatry and plan is for amputation on 11/06 as unable to fit in OR schedule until that time. dopplers were ordered to f/u leg pain. pain control. 3. DM 2 - Uncontrolled, A1C 9.4. Maintain on Levemir and Novolog as per sliding scale. Can resume home diabetic regimen on discharge. 4. HTN - Continue Losartan, Coreg. 5. PAD s/p Femoral and Popliteal Angioplasty - Continue Aspirin/Plavix. Unclear why not on statin - will defer to Vascular Sx. 6. Hyperkalemia - resolved 7. Chronic Ulcers LLE - clean. Hx osteomyelitis, completed Abx therapy. Continue wound care. follows at Wound clinic with Dr. Jones. 8. DVT Px - Heparin SQ 9. plan for amputation on 11/06 and then can go to SNF same day if no complications to continue with IV abx infusions.
[2018-11-02] MEDS: BACITRACIN 15 GM TUBE TOPICAL OINTMENT TP SCH (15:19)
[2018-11-02] MEDS: COLLAGENASE CLOSTRIDIUM HIST. 30 GRAMS TUBE TP SCH (15:19)
--- NOTE | 2018-11-02 17:09 | PN ---
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 Dr. Jones and Dr. Olvera I/D found site MRSA (+). On Bactrim for 3 weeks. Vanc and Zosyn given in ED. Pt s/p aortogram, RLE angiogram, SFA angioplasty with stent Over night pt's FS was over 600. She was given an increased dosage of insulin Pt seen and examined at bedside today. PICC line in place. She states her RIGHT 4th finger is not painful today. Pt reports CONTINUED painful 3rd digit of RIGHT foot. She states the toe is and hurts. This morning she reports new, aching calf pain. She suggests it is from her being in bed all day. Pain is reproducible with calf squeeze. Stat duplex req and returned NEG. She denies SOB, CP and NVFD. OBJECTIVE: Vital Signs Period Temp Pulse Resp BP Sys/Zhang Pulse Ox Last 24 Hr 97.5 F-98.5 F 69-79 18-20 110-141/53-66 98-99 GENERAL: The patient is awake, alert, and fully oriented, in no acute distress. HEAD: Normal with no signs of trauma. EYES: PERRL, extraocular movements intact, sclera anicteric, conjunctiva clear. No ptosis. ENT: Ears normal, nares patent, oropharynx clear without exudates, moist mucous membranes. NECK: Trachea midline, full range of motion, supple. LUNGS: Breath sounds equal, clear to auscultation bilaterally, no wheezes, no crackles, no accessory muscle use. HEART: Regular rate and rhythm, S1, S2 without murmur, rub or gallop. ABDOMEN: Soft, nontender, nondistended, normoactive bowel sounds, no guarding, no rebound, no hepatosplenomegaly, no masses. EXTREMITIES: PICC in RIGHT AC. LEFT LE amputation of digits. RIGHT 3rd LE digit (+) for necrosis and loss of subq fat. 2+ pulses, warm, well-perfused, no edema. RLE calf pain. NEUROLOGICAL: Cranial nerves II through XII grossly intact. Normal speech, gait not observed but pt walks with cane to bathroom per RN. PSYCH: Normal mood, normal affect. SKIN: Warm, dry, normal turgor, no rashes or lesions noted Laboratory Results - last 24 hr 11/01/18 11/01/18 11/02/18 17:34 21:30 06:00 WBC 11.4 H RBC 2.95 L Hgb 8.6 L Hct 26.2 L MCV 88.9 MCH 29.2 MCHC 32.9 RDW 15.0 Plt Count 180 D MPV 9.3 Absolute Neuts (auto) 8.5 H Neutrophils % 75.1 Lymphocytes % 18.4 D Monocytes % 6.1 D Eosinophils % 0.3 D Basophils % 0.1 Nucleated RBC % 0 Sodium Potassium Chloride Carbon Dioxide Anion Gap BUN Creatinine Est GFR (CKD-EPI)AfAm Est GFR (CKD-EPI)NonAf POC Glucometer 410 402 Random Glucose Calcium Total Bilirubin AST ALT Alkaline Phosphatase Total Protein Albumin 11/02/18 11/02/18 11/02/18 06:00 06:08 11:03 WBC RBC Hgb Hct MCV MCH MCHC RDW Plt Count MPV Absolute Neuts (auto) Neutrophils % Lymphocytes % Monocytes % Eosinophils % Basophils % Nucleated RBC % Sodium 136 Potassium 4.1 Chloride 100 Carbon Dioxide 28 Anion Gap 8 BUN 43.0 H Creatinine 1.1 Est GFR (CKD-EPI)AfAm 64.54 Est GFR (CKD-EPI)NonAf 55.69 POC Glucometer 350 228 Random Glucose 329 H Calcium 9.2 Total Bilirubin 0.2 AST 16 ALT 21 Alkaline Phosphatase 104 Total Protein 6.9 Albumin 3.0 L 11/02/18 16:58 WBC RBC Hgb Hct MCV MCH MCHC RDW Plt Count MPV Absolute Neuts (auto) Neutrophils % Lymphocytes % Monocytes % Eosinophils % Basophils % Nucleated RBC % Sodium Potassium Chloride Carbon Dioxide Anion Gap BUN Creatinine Est GFR (CKD-EPI)AfAm Est GFR (CKD-EPI)NonAf POC Glucometer 290 Random Glucose Calcium Total Bilirubin AST ALT Alkaline Phosphatase Total Protein Albumin Active Medications Aspirin (Asa -) 81 mg PO DAILY [facility] Last Admin: 11/02/18 12:33 Dose: 81 mg Bacitracin (Bacitracin -) 1 applic TP DAILY [facility] Last Admin: 11/02/18 15:19 Dose: 1 applic Carvedilol (Coreg -) 12.5 mg PO BID [facility] Last Admin: 11/02/18 21:42 Dose: 12.5 mg Clopidogrel Bisulfate (Plavix -) 75 mg PO DAILY [facility] Last Admin: 11/02/18 12:33 Dose: 75 mg Collagenase (Santyl -) 1 applic TP DAILY [facility]; Protocol Last Admin: 11/02/18 15:19 Dose: 1 applic Fentanyl (Sublimaze Injection -) 50 mcg IVPUSH Q5M PRN PRN Reason: PAIN-PACU ORDER X 4 DOSES ONLY Heparin Sodium (Porcine) (Heparin -) 5,000 unit SQ TID [facility] Last Admin: 11/02/18 21:42 Dose: 5,000 unit Vancomycin HCl (Vancomycin (Pre-Docked)) 1,000 mg in 250 mls @ 200 mls/hr IVPB Q24H [facility]; Protocol Last Admin: 11/02/18 10:37 Dose: 200 mls/hr Ibuprofen (Motrin -) 600 mg PO Q6H PRN PRN Reason: FEVER Last Admin: 11/02/18 21:41 Dose: 600 mg Insulin Aspart (Novolog Vial Sliding Scale -) 1 vial SQ ACHS [facility]; Protocol Last Admin: 11/02/18 21:43 Dose: 6 units Insulin Detemir (Levemir Vial) 25 units SQ HS [facility] Last Admin: 11/02/18 21:43 Dose: 25 unit Losartan Potassium (Cozaar -) 25 mg PO DAILY [facility] Last Admin: 11/02/18 12:33 Dose: 25 mg Ondansetron HCl (Zofran Injection) 4 mg IVPUSH Q6H PRN PRN Reason: NAUSEA AND/OR VOMITING Oxycodone HCl (Roxicodone -) 10 mg PO Q4H PRN PRN Reason: PAIN LEVEL 6-10 Last Admin: 11/01/18 21:40 Dose: 10 mg Promethazine HCl (Phenergan Injection -) 12.5 mg IVPUSH Q6H PRN PRN Reason: NAUSEA-FOR RESCUE AFTER 15 MIN Simethicone (Mylicon Liquid -) 40 mg PO QID PRN PRN Reason: GAS ASSESSMENT/PLAN: 58 y/o female with PMH DM, HTN, HLD, 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 Failed out-patient treatment with bactrim. Today pt demonstrated gangrenous RIGHT LE 3rd digit. # RUE 4th Digit paronychia with surrounding cellulitis. - PICC line in now RIGHT AC for long-term abx therapy - s/p aortogram, RLE angiogram, SFA angioplasty with stent (31 Oct 2018, Dr. Jones) - S/p I&D of RUE 4th digit dorsal DIP - Wound Cx + MRSA - Prior Cx positive for MRSA - Received 1 dose Daptomycin on admission - ID consulted: COMPLETE 6W COURSE VANCOMYCIN 1GM Q12H. D/C ZOSYN - MRCP RUE: (+) osteomyelitis # Gangrenous RIGHT 3rd toe - Vascular surgery consulted: S/p aortogram, RLE angiogram, SFA angioplasty with stent - Intact as of today: Black, pulsesless, and cold - Podiatry consulted: plan for amputation 06 Nov 2018 # Calf pain - r/o DVT - No SOB - + tender to touch - + redness # Hyperkalemia, resolved - Insulin # DM 2 - Uncontrolled, A1C 9.4 - ISS (levemir and novolog) # HTN - Cont. home regimen: losartan, coreg. # Chronic Ulcers LLE - clean, dry, intact - H/o osteomyelitis, completed abx therapy - Cont. wound care. # PAD - s/p aortogram, RLE angiogram, SFA angioplasty with stent - Cont. asa/plavix - F/u need for statin with vascular sx # DVT prophylaxis - Heparin SQ # F/E/N - NS - Cont. to monitor electrolytes - Low sodium/diabetic diet Charli Hummel MD Visit type - Emergency Visit Emergency Visit: No - New Patient This patient is new to me today: No - Critical Care Critical Care patient: No - Discharge Referral Referred to [facility] Med [facility] No ATTENDING PHYSICIAN STATEMENT I saw and evaluated the patient. I reviewed the resident's note and discussed the case with the resident. I agree with the resident's findings and plan as documented. SUBJECTIVE: OBJECTIVE: ASSESSMENT AND PLAN:
[2018-11-02] MEDS: INSULIN (LEVEMIR) 100 UNITS/ML UNITS SQ SCH (21:43)
[2018-11-03] MEDS: HEPARIN NA (PORCINE) 5,000 UNITS/ML 1ML VIAL SQ SCH ×3 (06:16→21:18)
[2018-11-03] MEDS: INSULIN SLIDING SCALE (NOVOLOG) 1 VIAL SQ SCH ×4 (06:16→21:19)
[2018-11-03 08:04] LABS: BASO % 0.4 % (0-2.0); HEMATOCRIT 24.9 % (32.4-45.2); HEMOGLOBIN 8.3 GM/dL (10.7-15.3); LYMPH % 34.3 % (8-40); MCH 29.5 pg (25.7-33.7); MCHC 33.3 g/dl (32.0-36.0); MEAN CELL VOLUME 88.6 fl (80-96); MEAN PLT VOLUME 9.3 fl (7.5-11.1); MONO % 11.1 % (3.8-10.2); NEUT % 52.2 % (42.8-82.8); PLATELET COUNT 166 K/MM3 (134-434); RBC 2.81 M/mm3 (3.60-5.2); RDW 15.2 % (11.6-15.6)
[2018-11-03 08:12] LABS: CALCIUM 8.9 mg/dL (8.5-10.1); POTASSIUM 4.2 mmol/L (3.5-5.1)
[2018-11-03] MEDS: ASPIRIN 81 MG CHEWABLE TABLETS PO SCH (10:59)
[2018-11-03] MEDS: BACITRACIN 15 GM TUBE TOPICAL OINTMENT TP SCH (10:59)
[2018-11-03] MEDS: CARVEDILOL 12.5 MG TABLET (FP) PO SCH ×2 (10:59→21:18)
[2018-11-03] MEDS: LOSARTAN POTASSIUM 25 MG TABLET PO SCH (10:59)
[2018-11-03] MEDS: CLOPIDOGREL BISULFATE 75 MG TABLET (FP) PO SCH (11:00)
[2018-11-03] MEDS: COLLAGENASE CLOSTRIDIUM HIST. 30 GRAMS TUBE TP SCH (11:01)
[2018-11-03] MEDS: IBUPROFEN 600 MG TABLET (FP) PO PRN ×2 (11:02→21:18)
[2018-11-03] MEDS: VANCOMYCIN 1 GRAM (PRE-DOCKED) 1,000 MG/250 ML BAG IVPB SCH (11:57)
--- NOTE | 2018-11-03 14:04 | PN ---
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 Dr. Jones and Dr. Olvera I/D found site MRSA (+). On Bactrim for 3 weeks. Vanc and Zosyn given in ED. Pt s/p aortogram, RLE angiogram, SFA angioplasty with stent No acute events over night. Pt seen and examined at bedside today. PICC line in place. She states her RIGHT 4th finger is NOT painful today. She denies SOB, CP and NVFD. OBJECTIVE: Vital Signs Period Temp Pulse Resp BP Sys/Zhang Pulse Ox Last 24 Hr 97.8 F-98.7 F 67-74 17-20 107-130/53-61 99 GENERAL: The patient is awake, alert, and fully oriented, in no acute distress. HEAD: Normal with no signs of trauma. EYES: PERRL, extraocular movements intact, sclera anicteric, conjunctiva clear. No ptosis. ENT: Ears normal, nares patent, oropharynx clear without exudates, moist mucous membranes. NECK: Trachea midline, full range of motion, supple. LUNGS: Breath sounds equal, clear to auscultation bilaterally, no wheezes, no crackles, no accessory muscle use. HEART: Regular rate and rhythm, S1, S2 without murmur, rub or gallop. ABDOMEN: Soft, nontender, nondistended, normoactive bowel sounds, no guarding, no rebound, no hepatosplenomegaly, no masses. EXTREMITIES: PICC in RIGHT AC. LEFT LE amputation of digits. RIGHT 3rd LE digit (+) for necrosis and loss of subq fat. 2+ pulses, warm, well-perfused, no edema. RLE calf pain. NEUROLOGICAL: Cranial nerves II through XII grossly intact. Normal speech, gait not observed but pt walks with cane to bathroom per RN. PSYCH: Normal mood, normal affect. SKIN: Warm, dry, normal turgor, no rashes or lesions noted Laboratory Results - last 24 hr 11/02/18 11/02/1811/03/19 16:58 21:40 06:10 WBC 8.0 RBC 2.81 L Hgb 8.3 L Hct 24.9 L MCV 88.6 MCH 29.5 MCHC 33.3 RDW 15.2 Plt Count 166 MPV 9.3 Absolute Neuts (auto) 4.2 Neutrophils % 52.2 D Lymphocytes % 34.3 D Monocytes % 11.1 H D Eosinophils % 2.0 D Basophils % 0.4 D Nucleated RBC % 0 Sodium Potassium Chloride Carbon Dioxide Anion Gap BUN Creatinine Est GFR (CKD-EPI)AfAm Est GFR (CKD-EPI)NonAf POC Glucometer 290 276 Random Glucose Calcium Vancomycin Pre-Dose 11/03/18 11/03/18 11/03/18 06:10 06:14 10:20 WBC RBC Hgb Hct MCV MCH MCHC RDW Plt Count MPV Absolute Neuts (auto) Neutrophils % Lymphocytes % Monocytes % Eosinophils % Basophils % Nucleated RBC % Sodium 139 Potassium 4.2 Chloride 108 H Carbon Dioxide 22 Anion Gap 10 BUN 41.0 H Creatinine 1.0 Est GFR (CKD-EPI)AfAm 72.42 Est GFR (CKD-EPI)NonAf 62.49 POC Glucometer 173 Random Glucose 165 H Calcium 8.9 Vancomycin Pre-Dose 10.4 L 11/03/18 11:56 WBC RBC Hgb Hct MCV MCH MCHC RDW Plt Count MPV Absolute Neuts (auto) Neutrophils % Lymphocytes % Monocytes % Eosinophils % Basophils % Nucleated RBC % Sodium Potassium Chloride Carbon Dioxide Anion Gap BUN Creatinine Est GFR (CKD-EPI)AfAm Est GFR (CKD-EPI)NonAf POC Glucometer 217 Random Glucose Calcium Vancomycin Pre-Dose Active Medications Generic Name Dose Route Start Last Admin Trade Name Freq PRN Reason Stop Dose Admin Aspirin 81 mg 11/01/18 10:00 11/03/18 10:59 Asa - PO 81 mg DAILY [facility] Administration Bacitracin 1 applic 11/01/18 10:00 11/03/18 10:59 Bacitracin - TP 1 applic DAILY [facility] Administration Carvedilol 12.5 mg 10/31/18 22:00 11/03/18 10:59 Coreg - PO 12.5 mg BID [facility] Administration Clopidogrel Bisulfate 75 mg 11/01/18 10:00 11/03/18 11:00 Plavix - PO 75 mg DAILY [facility] Administration Collagenase 1 applic 11/01/18 10:00 11/03/18 11:01 Santyl - TP 1 applic DAILY [facility] Administration Protocol Fentanyl 50 mcg 10/31/18 16:28 Sublimaze Injection - IVPUSH Q5M PRN PAIN-PACU ORDER X 4 DOSES ONLY Heparin Sodium (Porcine) 5,000 unit 10/31/18 22:00 11/03/18 13:34 Heparin - SQ 5,000 unit TID [facility] Administration Vancomycin HCl 1,000 mg in 250 mls @ 200 mls/hr 11/01/18 10:00 11/03/18 11:57 Vancomycin (Pre-Docked) IVPB 200 mls/hr Q24H [facility] Administration Protocol Ibuprofen 600 mg 10/31/18 16:28 11/03/18 11:02 Motrin - PO 600 mg Q6H PRN Administration FEVER Insulin Aspart 1 vial 10/31/18 16:30 11/03/18 12:30 Novolog Vial Sliding Scale - SQ 4 units ACHS [facility] Administration Protocol Insulin Detemir 25 units 11/01/18 22:00 11/02/18 21:43 Levemir Vial SQ 25 unit HS [facility] Administration Losartan Potassium 25 mg 11/01/18 10:00 11/03/18 10:59 Cozaar - PO 25 mg DAILY [facility] Administration Ondansetron HCl 4 mg 10/31/18 16:28 Zofran Injection IVPUSH Q6H PRN NAUSEA AND/OR VOMITING Oxycodone HCl 10 mg 10/31/18 16:28 11/01/18 21:40 Roxicodone - PO 10 mg Q4H PRN Administration PAIN LEVEL 6-10 Promethazine HCl 12.5 mg 10/31/18 16:28 Phenergan Injection - IVPUSH Q6H PRN NAUSEA-FOR RESCUE AFTER 15 MIN Simethicone 40 mg 10/31/18 16:28 Mylicon Liquid - PO QID PRN GAS ASSESSMENT/PLAN: 58 y/o female with PMH DM, HTN, HLD, 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 Failed out-patient treatment with bactrim. Today pt demonstrated gangrenous RIGHT LE 3rd digit. # RUE 4th Digit paronychia with surrounding cellulitis. - PICC line in now RIGHT AC for long-term abx therapy - s/p aortogram, RLE angiogram, SFA angioplasty with stent (31 Oct 2018, Dr. Jones) - S/p I&D of RUE 4th digit dorsal DIP - Wound Cx + MRSA - Prior Cx positive for MRSA - Received 1 dose Daptomycin on admission - ID consulted: COMPLETE 6W COURSE VANCOMYCIN 1GM Q12H. D/C ZOSYN - MRCP RUE: (+) osteomyelitis # Gangrenous RIGHT 3rd toe - Vascular surgery consulted: S/p aortogram, RLE angiogram, SFA angioplasty with stent - Intact as of today: Black, pulsesless, and cold - Podiatry consulted: plan for amputation 06 Nov 2018 # Calf pain - r/o DVT - No SOB - + tender to touch - + redness # Hyperkalemia, resolved - Insulin # DM 2 - Uncontrolled, A1C 9.4 - ISS (levemir and novolog) # HTN - Cont. home regimen: losartan, coreg. # Chronic Ulcers LLE - clean, dry, intact - H/o osteomyelitis, completed abx therapy - Cont. wound care. # PAD - s/p aortogram, RLE angiogram, SFA angioplasty with stent - Cont. asa/plavix - F/u need for statin with vascular sx # DVT prophylaxis - Heparin SQ # F/E/N - NS - Cont. to monitor electrolytes - Low sodium/diabetic diet Charli Hummle MD Visit type - Emergency Visit Emergency Visit: No - New Patient This patient is new to me today: No - Critical Care Critical Care patient: No ATTENDING PHYSICIAN STATEMENT I saw and evaluated the patient. I reviewed the resident's note and discussed the case with the resident. I agree with the resident's findings and plan as documented. SUBJECTIVE: OBJECTIVE: ASSESSMENT AND PLAN:
--- NOTE | 2018-11-03 14:14 | PN ---
Teaching Attending Note Name of Resident: Charli Hummel ATTENDING PHYSICIAN STATEMENT I saw and evaluated the patient. I reviewed the resident's note and discussed the case with the resident. I agree with the resident's findings and plan as documented. SUBJECTIVE:c/o intermittent shooting pain down the LLE. denies Cp, SOB, fever, chills, N/V/C/D OBJECTIVE: Last Vital Signs Temp Pulse Resp BP Pulse Ox 97.9 F 71 20 130/59 L 99 11/03/18 10:00 11/03/18 10:00 11/03/18 10:00 11/03/18 10:00 11/02/18 21:00 General NAD Extremities RLE diffuse tenderness on palpation not on movement. pulse 1+. 3rd digit dry gangrene of entire toe ASSESSMENT AND PLAN: 58 year old female with past medical history of DM 2, HTN, HLD, PVD s/p femoral artery DCP angioplasty, popliteal artery angioplasty, s/p amputations of first 3 toes L foot, chronic ulcers on plantar aspect L foot (follows with wound clinic), 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 Jones, scheduled for CT Angio in 2 weeks apparently), presented with worsening wound of the right 4th finger that started 4 weeks ago, seen and attended to by both Dr. Jones and Dr. Olvera. Wound Cx on prior I and D grew MRSA. She failed out-patient treatment with Bactrim. 1. Right Hand 4th Digit Paronychia with surrounding Cellulitis and Osteomyelitis - s/p I&D by Dr Olvera. Cx +MRSA. on vanco will need 6 weeks total. PICC line already inserted and accepted to SNF for alf IV abx 2. R foot 3rd digit dry gangrene-s/p angio with SFA stent 10/31. liekly having re -perfusion pain. is controlled with pain medication. doppler negative for DVT. plan is for amputation on 11/06 as unable to fit in OR schedule until that time. pain control. 3. DM 2 - Uncontrolled, A1C 9.4. Maintain on Levemir and Novolog as per sliding scale. Can resume home diabetic regimen on discharge. 4. HTN - Continue Losartan, Coreg. 5. PAD s/p Femoral and Popliteal Angioplasty - Continue Aspirin/Plavix. Unclear why not on statin - will defer to Vascular Sx. 6. Hyperkalemia - resolved 7. Chronic Ulcers LLE - clean. Hx osteomyelitis, completed Abx therapy. Continue wound care. follows at Wound clinic with Dr. Jones. 8. DVT Px - Heparin SQ 9. plan for amputation on 11/06 and then can go to SNF same day if no complications to continue with IV abx infusions.
[2018-11-03] MEDS: INSULIN (LEVEMIR) 100 UNITS/ML UNITS SQ SCH (21:19)
[2018-11-03] MEDS ORDERED: PT OWN MED DRAWER 7, Y5N ONE (23:40)
[2018-11-04] MEDS: CARVEDILOL 12.5 MG TABLET (FP) PO SCH ×3 (00:06→21:02)
[2018-11-04] MEDS: HEPARIN NA (PORCINE) 5,000 UNITS/ML 1ML VIAL SQ SCH ×3 (06:18→21:02)
[2018-11-04] MEDS: INSULIN SLIDING SCALE (NOVOLOG) 1 VIAL SQ SCH ×4 (06:18→21:27)
[2018-11-04] MEDS: VANCOMYCIN 1 GRAM (PRE-DOCKED) 1,000 MG/250 ML BAG IVPB SCH (11:18)
[2018-11-04] MEDS: CLOPIDOGREL BISULFATE 75 MG TABLET (FP) PO SCH (11:21)
[2018-11-04] MEDS: LOSARTAN POTASSIUM 25 MG TABLET PO SCH (11:21)
[2018-11-04] MEDS: ASPIRIN 81 MG CHEWABLE TABLETS PO SCH (11:22)
[2018-11-04] MEDS: BACITRACIN 15 GM TUBE TOPICAL OINTMENT TP SCH (11:22)
[2018-11-04] MEDS: COLLAGENASE CLOSTRIDIUM HIST. 30 GRAMS TUBE TP SCH (11:27)
[2018-11-04] MEDS: IBUPROFEN 600 MG TABLET (FP) PO PRN (12:58)
[2018-11-04] MEDS ORDERED: INSULIN (NOVOLOG) ASPART 100 UNITS/ML 10ML VIAL ONE (13:04)
--- NOTE | 2018-11-04 13:27 | PN ---
Progress Note, Physician Chief Complaint: pt is c/o pain on her foot at the wound side but it is same pains as always no fever or chills History of Present Illness: 58 year old female with past medical history of DM 2, HTN, HLD, PVD s/p femoral artery DCP angioplasty, popliteal artery angioplasty, s/p amputations of first 3 toes L foot, chronic ulcers on plantar aspect L foot (follows with wound clinic), 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 Jones, scheduled for CT Angio in 2 weeks apparently), presented with worsening wound of the right 4th finger that started 4 weeks ago, seen and attended to by both Dr. Jones and Dr. Olvera. Wound Cx on prior I and D grew MRSA. She failed out-patient treatment with Bactrim. - Current Medication List Current Medications: Active Medications Aspirin (Asa -) 81 mg PO DAILY [facility] Last Admin: 11/04/18 11:22 Dose: 81 mg Bacitracin (Bacitracin -) 1 applic TP DAILY [facility] Last Admin: 11/04/18 11:22 Dose: 1 applic Carvedilol (Coreg -) 12.5 mg PO BID [facility] Last Admin: 11/04/18 11:21 Dose: 12.5 mg Clopidogrel Bisulfate (Plavix -) 75 mg PO DAILY [facility] Last Admin: 11/04/18 11:21 Dose: 75 mg Collagenase (Santyl -) 1 applic TP DAILY [facility]; Protocol Last Admin: 11/04/18 11:27 Dose: Not Given Fentanyl (Sublimaze Injection -) 50 mcg IVPUSH Q5M PRN PRN Reason: PAIN-PACU ORDER X 4 DOSES ONLY Heparin Sodium (Porcine) (Heparin -) 5,000 unit SQ TID [facility] Last Admin: 11/04/18 06:18 Dose: 5,000 unit Vancomycin HCl (Vancomycin (Pre-Docked)) 1,000 mg in 250 mls @ 200 mls/hr IVPB Q24H [facility]; Protocol Last Admin: 11/04/18 11:18 Dose: 200 mls/hr Ibuprofen (Motrin -) 600 mg PO Q6H PRN PRN Reason: FEVER Last Admin: 11/04/18 12:58 Dose: 600 mg Insulin Aspart (Novolog Vial Sliding Scale -) 1 vial SQ ACHS [facility]; Protocol Last Admin: 11/04/18 13:09 Dose: 8 units Insulin Detemir (Levemir Vial) 25 units SQ HS [facility] Last Admin: 11/03/18 21:19 Dose: 25 unit Losartan Potassium (Cozaar -) 25 mg PO DAILY [facility] Last Admin: 11/04/18 11:21 Dose: 25 mg Ondansetron HCl (Zofran Injection) 4 mg IVPUSH Q6H PRN PRN Reason: NAUSEA AND/OR VOMITING Promethazine HCl (Phenergan Injection -) 12.5 mg IVPUSH Q6H PRN PRN Reason: NAUSEA-FOR RESCUE AFTER 15 MIN Simethicone (Mylicon Liquid -) 40 mg PO QID PRN PRN Reason: GAS Last Admin: 11/03/18 23:52 Dose: 40 mg - Objective Vital Signs: Vital Signs Temperature 98.0 F 11/04/18 06:24 Pulse Rate 67 11/04/18 06:24 Respiratory Rate 18 11/04/18 06:24 Blood Pressure 104/65 11/04/18 06:24 O2 Sat by Pulse Oximetry (%) 97 11/03/18 21:00 Constitutional: Yes: Well Nourished, No Distress Eyes: Yes: Conjunctiva Clear Neck: Yes: Trachea Midline Cardiovascular: Yes: Regular Rate and Rhythm Respiratory: Yes: CTA Bilaterally Gastrointestinal: Yes: Normal Bowel Sounds Extremities: Yes: Other (she has dressing in place in her rt lower extremity she doesnt want me to open it) Edema: Yes Edema: RLE: Trace Neurological: Yes: WNL, Alert, Oriented Labs: CBC, BMP 11/03/18 06:10 11/03/18 06:10 Problem List - Problems (1) IDDM (insulin dependent diabetes mellitus) Code(s): E11.9 - TYPE 2 DIABETES MELLITUS WITHOUT COMPLICATIONS; Z79.4 - FDC (CURRENT) USE OF INSULIN (2) Ischemic foot pain at rest Code(s): I73.9 - PERIPHERAL VASCULAR DISEASE, UNSPECIFIED (3) Diabetic foot ulcer associated with diabetes mellitus due to underlying condition Code(s): E08.621 - DIABETES MELLITUS DUE TO UNDERLYING CONDITION W FOOT ULCER; L97.509 - NON-PRESSURE CHRONIC ULCER OTH PRT UNSP FOOT W UNSP SEVERITY Qualifiers: Diabetic foot ulcer location: toe Laterality: left (4) Gangrene Code(s): I96 - GANGRENE, NOT ELSEWHERE CLASSIFIED (5) HTN (hypertension) Code(s): I10 - ESSENTIAL (PRIMARY) HYPERTENSION Qualifiers: Hypertension type: essential hypertension Qualified Code(s): I10 - Essential (primary) hypertension (6) PAD (peripheral artery disease) Code(s): I73.9 - PERIPHERAL VASCULAR DISEASE, UNSPECIFIED (7) Type 2 diabetes mellitus with foot ulcer Code(s): E11.621 - TYPE 2 DIABETES MELLITUS WITH FOOT ULCER; L97.509 - NON- PRESSURE CHRONIC ULCER OTH PRT UNSP FOOT W UNSP SEVERITY (8) Gangrene of toe of left foot Code(s): I96 - GANGRENE, NOT ELSEWHERE CLASSIFIED Impression/Plan Impression/Plan: 58 year old female with past medical history of DM 2, HTN, HLD, PVD s/p femoral artery DCP angioplasty, popliteal artery angioplasty, s/p amputations of first 3 toes L foot, chronic ulcers on plantar aspect L foot 1. Right Hand 4th Digit Paronychia with surrounding Cellulitis and Osteomyelitis - s/p I&D Cx +MRSA. on vanco will need 6 weeks total. PICC line already inserted and accepted to SNF for [facility] living IV abx 2. R foot 3rd digit dry gangrene-s/p angio with SFA stent 10/31. liekly having re -perfusion pain. is controlled with pain medication. doppler negative for DVT. plan is for amputation on 11/06 as unable to fit in OR schedule until that time. pain control. 3. DM 2 - Uncontrolled, A1C 9.4. Maintain on Levemir and Novolog as per sliding scale. will continue coverage and today sugar is a little high but she ate out side food 4. HTN - stable Continue Losartan, Coreg. 5. PAD s/p Femoral and Popliteal Angioplasty - Continue Aspirin/Plavix. 6. Chronic Ulcers LLE - clean. Hx osteomyelitis, completed Abx therapy. Continue wound care. follows at Wound clinic with Dr. oJnes. 8. DVT Px - Heparin SQ 9. plan for amputation on 11/06 and then can go to SNF same day if no complications to continue with IV abx infusions. 10- will add percocet for pain more severe possible 6-10 Visit type - Emergency Visit Emergency Visit: Yes ED Registration Date: 10/24/18 Care time: The patient presented to the Emergency Department on the above date and was hospitalized for further evaluation of their emergent condition. - New Patient This patient is new to me today: Yes Date on this admission: 11/04/18 - Critical Care Critical Care patient: No - Discharge Referral Referred to [facility] No
[2018-11-04] MEDS: ACETAMINOPHEN 325 MG TABLET (FP) PO PRN (21:00)
[2018-11-04] MEDS: oxyCODONE HCL 5 MG TABLET PO PRN (21:01)
[2018-11-04] MEDS: INSULIN (LEVEMIR) 100 UNITS/ML UNITS SQ SCH (21:03)
[2018-11-05] MEDS: IBUPROFEN 600 MG TABLET (FP) PO PRN ×2 (01:40→21:41)
[2018-11-05] MEDS: HEPARIN NA (PORCINE) 5,000 UNITS/ML 1ML VIAL SQ SCH ×3 (05:42→21:44)
[2018-11-05] MEDS ORDERED: PT OWN MED DRAWER 7, Y5N ONE (06:07)
[2018-11-05] MEDS: INSULIN SLIDING SCALE (NOVOLOG) 1 VIAL SQ SCH ×4 (06:12→21:43)
--- NOTE | 2018-11-05 09:25 | PN ---
Teaching Attending Note Name of Resident: Anaid Martinez ATTENDING PHYSICIAN STATEMENT I saw and evaluated the patient. I reviewed the resident's note and discussed the case with the resident. I agree with the resident's findings and plan as documented. SUBJECTIVE: No new symptoms, remained afebrile OBJECTIVE: Vital Signs Temperature 97.7 F 11/05/18 06:00 Pulse Rate 60 11/05/18 06:00 Respiratory Rate 18 11/05/18 06:00 Blood Pressure 104/49 L 11/05/18 06:00 O2 Sat by Pulse Oximetry (%) 100 11/04/18 21:00 Elderly F not in distress HEENT: Mm moist, No Jaundice NECK; supple, no JVd No Bruit CHEST: CTA B/L CVS; S1S2 R no m/g/r ABD: No distention, non tender EXT: Rt 4th finger healing wound , Left LE in BK slab and Rt UE PICC line [employer]: AOX3 non focal CBC, BMP 11/03/18 06:10 11/03/18 06:10 Active Medications Acetaminophen (Tylenol -) 325 mg PO Q6H PRN PRN Reason: PAIN LEVEL 6-10 Last Admin: 11/05/18 10:12 Dose: 325 mg Aspirin (Asa -) 81 mg PO DAILY [facility] Last Admin: 11/05/18 10:16 Dose: 81 mg Bacitracin (Bacitracin -) 1 applic TP DAILY [facility] Last Admin: 11/05/18 10:16 Dose: 1 applic Carvedilol (Coreg -) 12.5 mg PO BID [facility] Last Admin: 11/05/18 10:28 Dose: Not Given Clopidogrel Bisulfate (Plavix -) 75 mg PO DAILY [facility] Last Admin: 11/05/18 10:22 Dose: 75 mg Collagenase (Santyl -) 1 applic TP DAILY [facility]; Protocol Last Admin: 11/05/18 10:18 Dose: 1 applic Fentanyl (Sublimaze Injection -) 50 mcg IVPUSH Q5M PRN PRN Reason: PAIN-PACU ORDER X 4 DOSES ONLY Heparin Sodium (Porcine) (Heparin -) 5,000 unit SQ TID [facility] Last Admin: 11/05/18 05:42 Dose: 5,000 unit Vancomycin HCl (Vancomycin (Pre-Docked)) 1,000 mg in 250 mls @ 200 mls/hr IVPB Q24H [facility]; Protocol Last Admin: 11/05/18 10:13 Dose: 200 mls/hr Ibuprofen (Motrin -) 600 mg PO Q6H PRN PRN Reason: FEVER Last Admin: 11/05/18 01:40 Dose: 600 mg Insulin Aspart (Novolog Vial Sliding Scale -) 1 vial SQ ACHS [facility]; Protocol Last Admin: 11/05/18 11:55 Dose: 6 units Insulin Detemir (Levemir Vial) 25 units SQ HS [facility] Last Admin: 11/04/18 21:03 Dose: 25 units Losartan Potassium (Cozaar -) 25 mg PO DAILY [facility] Last Admin: 11/05/18 10:29 Dose: Not Given Ondansetron HCl (Zofran Injection) 4 mg IVPUSH Q6H PRN PRN Reason: NAUSEA AND/OR VOMITING Oxycodone HCl (Roxicodone -) 5 mg PO Q6H PRN PRN Reason: PAIN LEVEL 6-10 Last Admin: 11/05/18 10:11 Dose: 5 mg Promethazine HCl (Phenergan Injection -) 12.5 mg IVPUSH Q6H PRN PRN Reason: NAUSEA-FOR RESCUE AFTER 15 MIN Simethicone (Mylicon Liquid -) 40 mg PO QID PRN PRN Reason: GAS Last Admin: 11/03/18 23:52 Dose: 40 mg ASSESSMENT AND PLAN: 58 year old female with past medical history of DM 2, HTN, HLD, PVD s/p femoral artery DCP angioplasty, popliteal artery angioplasty, s/p amputations of first 3 toes L foot, chronic ulcers on plantar aspect L foot (follows with wound clinic), 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 Jones, scheduled for CT Angio in 2 weeks apparently), presented with worsening wound of the right 4th finger that started 4 weeks ago, seen and attended to by both Dr. Jones and Dr. Olvera. Wound Cx on prior I and D grew MRSA. She failed out-patient treatment with Bactrim. Problem List - Problems (1) Paronychia of right ring finger Assessment/Plan: Right Hand 4th Digit Paronychia with surrounding Cellulitis and Osteomyelitis- s /p I&D by Dr Olvera. Cx +MRSA. on vanco will need 6 weeks total. PICC line already inserted and accepted to [facility] IV abx Code(s): L03.011 - CELLULITIS OF RIGHT FINGER (2) Diabetes mellitus Assessment/Plan: DM 2 - Uncontrolled, A1C 9.4. Maintain on Levemir and Novolog as per sliding scale. Can resume home diabetic regimen on discharge. Code(s): E11.9 - TYPE 2 DIABETES MELLITUS WITHOUT COMPLICATIONS Qualifiers: Diabetes mellitus type: type 2 (3) HTN (hypertension) Assessment/Plan: 4. HTN - Continue Losartan, Coreg. Code(s): I10 - ESSENTIAL (PRIMARY) HYPERTENSION Qualifiers: Hypertension type: essential hypertension Qualified Code(s): I10 - Essential (primary) hypertension (4) PAD (peripheral artery disease) Assessment/Plan: s/p Femoral and Popliteal Angioplasty - Continue Aspirin/Plavix. Unclear why not on statin - will defer to Vascular Sx. Chronic Ulcers LLE - clean. Hx osteomyelitis, completed Abx therapy. Continue wound care. follows at Wound clinic with Dr. Jones. Plan for amputation on 11/06 and then can go to SNF same day if no complications to continue with IV abx infusions. Code(s): I73.9 - PERIPHERAL VASCULAR DISEASE, UNSPECIFIED
[2018-11-05] MEDS: oxyCODONE HCL 5 MG TABLET PO PRN ×2 (10:11→23:52)
--- NOTE | 2018-11-05 10:11 | PN ---
Progress Note (short form) - Note Progress Note: Podiatry F/U: Seen/evaluated at bedside NAD. Pain controlled, denies F/V/N/C/SOB/CP. Afebrile. Awaiting operative management. CHERELLE: R foot: pedal pulses dopplerable, TG wnl. The foot is warm, well perfused. There are dry gangrenous changes of the right third digit with mummification of the third digit. Moderate tenderness elicited on palpation. Mild periwound erythema to the third MTPJ. L foot: diabetic ulcers plantar heel and midfoot left foot with fibrogranular base, regular borders, no probing to bone, no purulence, no fluctuance, no streaking cellulitis, no signs of active infection. No ischemic changes. Imp: 58 year old diabetic, PVD female with gangrene right third digit 1. IV abx 2. Plan for third digit amputation right foot tomorrow morning in OR. 3. NPO midnight 4. Will follow Regine Keene DPM
[2018-11-05] MEDS: ACETAMINOPHEN 325 MG TABLET (FP) PO PRN ×2 (10:12→23:52)
[2018-11-05] MEDS: VANCOMYCIN 1 GRAM (PRE-DOCKED) 1,000 MG/250 ML BAG IVPB SCH (10:13)
[2018-11-05] MEDS: BACITRACIN 15 GM TUBE TOPICAL OINTMENT TP SCH (10:16)
[2018-11-05] MEDS: ASPIRIN 81 MG CHEWABLE TABLETS PO SCH (10:16)
[2018-11-05] MEDS: COLLAGENASE CLOSTRIDIUM HIST. 30 GRAMS TUBE TP SCH (10:18)
[2018-11-05] MEDS: CLOPIDOGREL BISULFATE 75 MG TABLET (FP) PO SCH (10:22)
[2018-11-05] MEDS: CARVEDILOL 12.5 MG TABLET (FP) PO SCH ×3 (10:23→21:42)
[2018-11-05] MEDS: LOSARTAN POTASSIUM 25 MG TABLET PO SCH ×2 (10:23→10:29)
--- NOTE | 2018-11-05 11:52 | PN ---
Physical Exam: SUBJECTIVE: Patient seen and examined. She reports mild pain in right 4th toe and arch of foot. She denies fever, chills, n/v/d. OBJECTIVE: Vital Signs Period Temp Pulse Resp BP Sys/Zhang Pulse Ox Last 24 Hr 97.6 F-98.3 F 60-77 18-20 104-140/49-84 100 GENERAL: The patient is awake, alert, and fully oriented, in no acute distress. HEAD: Normal with no signs of trauma. EYES: PERRL, extraocular movements intact, sclera anicteric, conjunctiva clear. No ptosis. ENT: Ears normal, nares patent, oropharynx clear without exudates, moist mucous membranes. NECK: Trachea midline, full range of motion, supple. LUNGS: Breath sounds equal, clear to auscultation bilaterally, no wheezes, no crackles, no accessory muscle use. HEART: Regular rate and rhythm, S1, S2 without murmur, rub or gallop. ABDOMEN: Soft, nontender, nondistended, normoactive bowel sounds EXTREMITIES: 2+ pulses, warm, well-perfused, no edema, except right 3rd toe dry gangrenous changes, not tender to palpation. right 4th toe non-erythematous but tender to palpation NEUROLOGICAL: Cranial nerves II through XII grossly intact. Normal speech, gait not observed. PSYCH: Normal mood, normal affect. SKIN: Warm, dry, normal turgor, no rashes or lesions noted Laboratory Results - last 24 hr 11/04/18 11/04/18 11/04/18 12:51 17:16 20:36 POC Glucometer 348 255 284 11/05/18 11/05/18 05:56 11:06 POC Glucometer 203 293 Active Medications Generic Name Dose Route Start Last Admin Trade Name Freq PRN Reason Stop Dose Admin Acetaminophen 325 mg 11/04/18 15:13 11/05/18 10:12 Tylenol - PO 325 mg Q6H PRN Administration PAIN LEVEL 6-10 Aspirin 81 mg 11/01/18 10:00 11/05/18 10:16 Asa - PO 81 mg DAILY [facility] Administration Bacitracin 1 applic 11/01/18 10:00 11/05/18 10:16 Bacitracin - TP 1 applic DAILY [facility] Administration Carvedilol 12.5 mg 10/31/18 22:00 11/05/18 10:28 Coreg - PO Not Given BID [facility] Clopidogrel Bisulfate 75 mg 11/01/18 10:00 11/05/18 10:22 Plavix - PO 75 mg DAILY [facility] Administration Collagenase 1 applic 11/01/18 10:00 11/05/18 10:18 Santyl - TP 1 applic DAILY [facility] Administration Protocol Fentanyl 50 mcg 10/31/18 16:28 Sublimaze Injection - IVPUSH Q5M PRN PAIN-PACU ORDER X 4 DOSES ONLY Heparin Sodium (Porcine) 5,000 unit 10/31/18 22:00 11/05/18 05:42 Heparin - SQ 5,000 unit TID [facility] Administration Vancomycin HCl 1,000 mg in 250 mls @ 200 mls/hr 11/01/18 10:00 11/05/18 10:13 Vancomycin (Pre-Docked) IVPB 200 mls/hr Q24H [facility] Administration Protocol Ibuprofen 600 mg 10/31/18 16:28 11/05/18 01:40 Motrin - PO 600 mg Q6H PRN Administration FEVER Insulin Aspart 1 vial 10/31/18 16:30 11/05/18 06:12 Novolog Vial Sliding Scale - SQ 4 units ACHS [facility] Administration Protocol Insulin Detemir 25 units 11/01/18 22:00 11/04/18 21:03 Levemir Vial SQ 25 units HS [facility] Administration Losartan Potassium 25 mg 11/01/18 10:00 11/05/18 10:29 Cozaar - PO Not Given DAILY [facility] Ondansetron HCl 4 mg 10/31/18 16:28 Zofran Injection IVPUSH Q6H PRN NAUSEA AND/OR VOMITING Oxycodone HCl 5 mg 11/04/18 15:13 11/05/18 10:11 Roxicodone - PO 5 mg Q6H PRN Administration PAIN LEVEL 6-10 Promethazine HCl 12.5 mg 10/31/18 16:28 Phenergan Injection - IVPUSH Q6H PRN NAUSEA-FOR RESCUE AFTER 15 MIN Simethicone 40 mg 10/31/18 16:28 11/03/18 23:52 Mylicon Liquid - PO 40 mg QID PRN Administration GAS Ms. Guajardo is a 58y/o female with DM, HTN, HLD, gangrene of both feet s/p amputations of 3 left toes (hx of MRSA), PVD with femoral artery DCP angioplasty , popliteal artery angioplasty, who presented to the ED from wound care due to worsening wound of the right 4th finger. Failed out-patient treatment with bactrim. Patient developed dry gangrene of right 3rd toe. #dry gangrenous right 3rd toe -vascular surgery consulted: S/p aortogram, RLE angiogram, SFA angioplasty with stent -intact as of today: Black, pulsesless, and cold -podiatry consulted: amputation scheduled for tomorrow -pain control with oxycodone PRN and tylenol PRN #RUE 4th Digit paronychia with surrounding cellulitis -PICC line in [facility] for abx -s/p aortogram, RLE angiogram, SFA angioplasty with stent (31 Oct 2018, Dr. Jones) -S/p I&D of RUE 4th digit dorsal DIP -Wound Cx + MRSA -Prior Cx positive for MRSA -Received 1 dose Daptomycin on admission -ID consulted: COMPLETE 6W COURSE VANCOMYCIN 1GM Q12H. D/C ZOSYN -MRCP RUE: (+) osteomyelitis # Calf pain Doppler negative for DVT bilaterally. No SOB. No longer red or tender to touch. # Hyperkalemia, resolved -insulin # DM 2 -Uncontrolled, A1C 9.4 -SSI # HTN -continue home losartan and carvedilol #chronic ulcers LLE -clean, dry, intact -h/o osteomyelitis, completed abx therapy -wound care -podiatry: diabetic ulcers plantar heel and midfoot left foot with fibrogranular base, regular borders, no probing to bone, no purulence, no fluctuance, no streaking cellulitis, no signs of active infection. No ischemic changes. #PAD -s/p aortogram, RLE angiogram, SFA angioplasty with stent -continue ASA, Plavix -consider statin FEN PO fluids monitor K low sodium/diabetic diet DVT Ppx heparin SQ Visit type - Emergency Visit Emergency Visit: Yes ED Registration Date: 10/24/18 Care time: The patient presented to the Emergency Department on the above date and was hospitalized for further evaluation of their emergent condition. - New Patient This patient is new to me today: Yes Date on this admission: 11/05/18 - Critical Care Critical Care patient: No - Discharge Referral Referred to [facility] Med P.C.: No ATTENDING PHYSICIAN STATEMENT I saw and evaluated the patient. I reviewed the resident's note and discussed the case with the resident. I agree with the resident's findings and plan as documented. SUBJECTIVE: OBJECTIVE: ASSESSMENT AND PLAN:
[2018-11-05] MEDS ORDERED: INSULIN (NOVOLOG) ASPART 100 UNITS/ML 10ML VIAL ONE (11:54)
[2018-11-05] MEDS: INSULIN (LEVEMIR) 100 UNITS/ML UNITS SQ SCH (21:42)
[2018-11-06] MEDS: INSULIN SLIDING SCALE (NOVOLOG) 1 VIAL SQ SCH ×4 (06:35→21:55)
[2018-11-06 07:47] LABS: BASO % 0.5 % (0-2.0); EOS % 3.7 % (0-4.5); HEMOGLOBIN 8.4 GM/dL (10.7-15.3); LYMPH % 22.6 % (8-40); MCH 29.5 pg (25.7-33.7); MCHC 33.5 g/dl (32.0-36.0); MEAN CELL VOLUME 88.1 fl (80-96); MEAN PLT VOLUME 9.2 fl (7.5-11.1); MONO % 7.8 % (3.8-10.2); NEUT % 65.4 % (42.8-82.8); PLATELET COUNT 219 K/MM3 (134-434); RBC 2.84 M/mm3 (3.60-5.2); RDW 14.9 % (11.6-15.6); WHITE BLOOD COUNT 10.4 K/mm3 (4.0-10.0)
--- NOTE | 2018-11-06 08:14 | PN ---
Physical Exam: SUBJECTIVE: Patient seen and examined. She reports mild pain in lateral aspects of right 4th toe, distal surface of 3rd toe, arch of foot, and lateral surface of foot. She denies fever, chills, n/v/d. Anxious about procedure today. OBJECTIVE: Vital Signs Period Temp Pulse Resp BP Sys/Zhang Pulse Ox Last 24 Hr 97.0 F-98.1 F 65-83 16-18 107-158/46-78 97-100 GENERAL: The patient is awake, alert, and fully oriented, in no acute distress. HEAD: Normal with no signs of trauma. EYES: PERRL, extraocular movements intact, sclera anicteric, conjunctiva clear. No ptosis. ENT: Ears normal, nares patent, moist mucous membranes. NECK: Trachea midline, full range of motion, supple. LUNGS: Breath sounds equal, clear to auscultation bilaterally, no wheezes, no crackles, no accessory muscle use. HEART: Regular rate and rhythm, S1, S2 without murmur, rub or gallop. ABDOMEN: Soft, nontender, nondistended, normoactive bowel sounds EXTREMITIES: 2+ pulses, warm, well-perfused, no edema, except right 3rd toe dry gangrenous changes, tender to palpation. right 4th toe non-erythematous but tender to palpation NEUROLOGICAL: Cranial nerves II through XII grossly intact. Normal speech, gait not observed. PSYCH: Anxious. SKIN: Warm, dry, normal turgor, no rashes or lesions noted Laboratory Results - last 24 hr 11/05/18 11/05/18 11/05/18 11:06 14:05 17:14 WBC RBC Hgb Hct MCV MCH MCHC RDW Plt Count MPV Absolute Neuts (auto) Neutrophils % Lymphocytes % Monocytes % Eosinophils % Basophils % Nucleated RBC % POC Glucometer 293 238 235 11/05/18 11/06/18 11/06/18 21:40 06:06 06:20 WBC 10.4 H RBC 2.84 L Hgb 8.4 L Hct 25.0 L MCV 88.1 MCH 29.5 MCHC 33.5 RDW 14.9 Plt Count 219 D MPV 9.2 Absolute Neuts (auto) 6.8 Neutrophils % 65.4 D Lymphocytes % 22.6 D Monocytes % 7.8 Eosinophils % 3.7 D Basophils % 0.5 Nucleated RBC % 0 POC Glucometer 235 218 Active Medications Generic Name Dose Route Start Last Admin Trade Name Freq PRN Reason Stop Dose Admin Acetaminophen 325 mg 11/04/18 15:13 11/05/18 23:52 Tylenol - PO 325 mg Q6H PRN Administration PAIN LEVEL 6-10 Aspirin 81 mg 11/01/18 10:00 11/05/18 10:16 Asa - PO 81 mg DAILY [facility] Administration Bacitracin 1 applic 11/01/18 10:00 11/05/18 10:16 Bacitracin - TP 1 applic DAILY [facility] Administration Carvedilol 12.5 mg 10/31/18 22:00 11/05/18 21:42 Coreg - PO 12.5 mg BID [facility] Administration Clopidogrel Bisulfate 75 mg 11/01/18 10:00 11/05/18 10:22 Plavix - PO 75 mg DAILY [facility] Administration Collagenase 1 applic 11/01/18 10:00 11/05/18 10:18 Santyl - TP 1 applic DAILY [facility] Administration Protocol Fentanyl 50 mcg 10/31/18 16:28 Sublimaze Injection - IVPUSH Q5M PRN PAIN-PACU ORDER X 4 DOSES ONLY Heparin Sodium (Porcine) 5,000 unit 10/31/18 22:00 11/05/18 21:44 Heparin - SQ Not Given TID [facility] Vancomycin HCl 1,000 mg in 250 mls @ 200 mls/hr 11/01/18 10:00 11/05/18 10:13 Vancomycin (Pre-Docked) IVPB 200 mls/hr Q24H [facility] Administration Protocol Ibuprofen 600 mg 10/31/18 16:28 11/05/18 21:41 Motrin - PO 600 mg Q6H PRN Administration FEVER Insulin Aspart 1 vial 10/31/18 16:30 11/06/18 06:35 Novolog Vial Sliding Scale - SQ Not Given ACHS [facility] Protocol Insulin Detemir 25 units 11/01/18 22:00 11/05/18 21:42 Levemir Vial SQ 25 units HS [facility] Administration Losartan Potassium 25 mg 11/01/18 10:00 11/05/18 10:29 Cozaar - PO Not Given DAILY [facility] Ondansetron HCl 4 mg 10/31/18 16:28 Zofran Injection IVPUSH Q6H PRN NAUSEA AND/OR VOMITING Oxycodone HCl 5 mg 11/04/18 15:13 11/05/18 23:52 Roxicodone - PO 5 mg Q6H PRN Administration PAIN LEVEL 6-10 Promethazine HCl 12.5 mg 10/31/18 16:28 Phenergan Injection - IVPUSH Q6H PRN NAUSEA-FOR RESCUE AFTER 15 MIN Simethicone 40 mg 10/31/18 16:28 11/03/18 23:52 Mylicon Liquid - PO 40 mg QID PRN Administration GAS Ms. Guajardo is a 58y/o female with DM, HTN, HLD, gangrene of both feet s/p amputations of 3 left toes (hx of MRSA), PVD with femoral artery DCP angioplasty , popliteal artery angioplasty, who presented to the ED from wound care due to worsening wound of the right 4th finger. Failed out-patient treatment with bactrim. Patient developed dry gangrene of right 3rd toe. #dry gangrenous right 3rd toe -vascular surgery consulted: S/p aortogram, RLE angiogram, SFA angioplasty with stent -intact as of today: Black, pulsesless, and cold -podiatry consulted: amputation scheduled for today -oxycodone and tylenol -one-time dose Ativan given for anxiety prior to surgery #RUE 4th Digit paronychia with surrounding cellulitis -PICC line in right AC for abx -S/p I&D of RUE 4th digit dorsal DIP -wound culture MRSA -ID consulted: COMPLETE 6W COURSE VANCOMYCIN 1GM Q12H. D/C ZOSYN -MRCP RUE: (+) osteomyelitis #Calf pain Doppler negative for DVT bilaterally. No SOB. No longer red or tender to touch. #Hyperkalemia, resolved -insulin #DM 2 -Uncontrolled, A1C 9.4 -SSI #HTN -continue home losartan and carvedilol #chronic ulcers LLE -clean, dry, intact -h/o osteomyelitis, completed abx therapy -wound care -podiatry: diabetic ulcers plantar heel and midfoot left foot with fibrogranular base, regular borders, no probing to bone, no purulence, no fluctuance, no streaking cellulitis, no signs of active infection. No ischemic changes. #PAD -s/p aortogram, RLE angiogram, SFA angioplasty with stent -continue ASA, Plavix -consider statin FEN PO fluids monitor K low sodium/diabetic diet DVT Ppx heparin SQ Visit type - Emergency Visit Emergency Visit: Yes ED Registration Date: 10/24/18 Care time: The patient presented to the Emergency Department on the above date and was hospitalized for further evaluation of their emergent condition. - New Patient This patient is new to me today: No - Critical Care Critical Care patient: No - Discharge Referral Referred to [facility] Med P.C.: No ATTENDING PHYSICIAN STATEMENT I saw and evaluated the patient. I reviewed the resident's note and discussed the case with the resident. I agree with the resident's findings and plan as documented. SUBJECTIVE: OBJECTIVE: ASSESSMENT AND PLAN:
[2018-11-06] MEDS ORDERED: ALPRAZolam 0.25 MG TABLET PO PRN ×2 (08:45→12:10)
[2018-11-06] MEDS: VANCOMYCIN 1 GRAM (PRE-DOCKED) 1,000 MG/250 ML BAG IVPB SCH (09:25)
[2018-11-06 09:30] LABS: ALBUMIN 2.8 g/dl (3.4-5.0); BILIRUBIN,TOTAL 0.5 mg/dL (0.2-1); CALCIUM 9.1 mg/dL (8.5-10.1); CREATININE 1.2 mg/dL (0.55-1.3); POTASSIUM 4.6 mmol/L (3.5-5.1); TOT PROT 6.6 g/dl (6.4-8.2)
[2018-11-06] MEDS: LOSARTAN POTASSIUM 25 MG TABLET PO SCH (09:35)
[2018-11-06] MEDS: BACITRACIN 15 GM TUBE TOPICAL OINTMENT TP SCH (09:36)
[2018-11-06] MEDS: ASPIRIN 81 MG CHEWABLE TABLETS PO SCH (09:36)
[2018-11-06] MEDS: COLLAGENASE CLOSTRIDIUM HIST. 30 GRAMS TUBE TP SCH (09:36)
[2018-11-06] MEDS: CARVEDILOL 12.5 MG TABLET (FP) PO SCH ×2 (09:36→21:54)
[2018-11-06] MEDS: CLOPIDOGREL BISULFATE 75 MG TABLET (FP) PO SCH (09:36)
[2018-11-06 10:04] LABS: BLOOD UREA NITROGEN 40.4 mg/dL (7-18)
[2018-11-06] MEDS ORDERED: LIDOCAINE HCL 1%, 10 MG/ML (20ML VIAL) ONE (10:40)
[2018-11-06] MEDS ORDERED: BUPIVACAINE HCL/PF 0.5% (5 MG/ML) 30 ML VIAL IJ ONE (10:40)
--- NOTE | 2018-11-06 10:40 | PN ---
Teaching Attending Note Name of Resident: Anaid Martinez ATTENDING PHYSICIAN STATEMENT I saw and evaluated the patient. I reviewed the resident's note and discussed the case with the resident. I agree with the resident's findings and plan as documented. SUBJECTIVE: Patient complains of pain in her right foot. OBJECTIVE: Vital Signs Period Temp Pulse Resp BP Sys/Zhang Pulse Ox Last 24 Hr 97.0 F-98.1 F 65-83 16-18 122-158/53-78 97 HEART: S1S2, RRR LUNGS: Clear ABDOMEN: Obese, soft, non-tender, non-distended, normal BS EXTREMITIES: No edema. Gangrene of right 3rd toe Laboratory Results - last 24 hr 11/05/18 11/05/18 11/05/18 11:06 14:05 17:14 WBC RBC Hgb Hct MCV MCH MCHC RDW Plt Count MPV Absolute Neuts (auto) Neutrophils % Lymphocytes % Monocytes % Eosinophils % Basophils % Nucleated RBC % Sodium Potassium Chloride Carbon Dioxide Anion Gap BUN Creatinine Est GFR (CKD-EPI)AfAm Est GFR (CKD-EPI)NonAf POC Glucometer 293 238 235 Random Glucose Calcium Total Bilirubin AST ALT Alkaline Phosphatase Total Protein Albumin 11/05/18 11/06/18 11/06/18 21:40 06:06 06:06 WBC 10.4 H RBC 2.84 L Hgb 8.4 L Hct 25.0 L MCV 88.1 MCH 29.5 MCHC 33.5 RDW 14.9 Plt Count 219 D MPV 9.2 Absolute Neuts (auto) 6.8 Neutrophils % 65.4 D Lymphocytes % 22.6 D Monocytes % 7.8 Eosinophils % 3.7 D Basophils % 0.5 Nucleated RBC % 0 Sodium 137 Potassium 4.6 Chloride 103 Carbon Dioxide 26 Anion Gap 7 L BUN 40.4 H Creatinine 1.2 Est GFR (CKD-EPI)AfAm 58.10 Est GFR (CKD-EPI)NonAf 50.13 POC Glucometer 235 Random Glucose 204 H Calcium 9.1 Total Bilirubin 0.5 AST 14 L ALT 19 Alkaline Phosphatase 97 Total Protein 6.6 Albumin 2.8 L 11/06/18 06:20 WBC RBC Hgb Hct MCV MCH MCHC RDW Plt Count MPV Absolute Neuts (auto) Neutrophils % Lymphocytes % Monocytes % Eosinophils % Basophils % Nucleated RBC % Sodium Potassium Chloride Carbon Dioxide Anion Gap BUN Creatinine Est GFR (CKD-EPI)AfAm Est GFR (CKD-EPI)NonAf POC Glucometer 218 Random Glucose Calcium Total Bilirubin AST ALT Alkaline Phosphatase Total Protein Albumin Current Medications Generic Name Dose Route Start Last Admin Trade Name Freq PRN Reason Stop Dose Admin Acetaminophen 325 mg 11/04/18 15:13 11/05/18 23:52 Tylenol - PO 325 mg Q6H PRN Administration PAIN LEVEL 6-10 Alprazolam 0.25 mg 11/06/18 08:45 11/06/18 09:25 Xanax - PO 0.25 mg Q8H PRN Administration ANXIETY Aspirin 81 mg 11/01/18 10:00 11/06/18 09:36 Asa - PO Not Given DAILY [facility] Bacitracin 1 applic 11/01/18 10:00 11/06/18 09:36 Bacitracin - TP 1 applic DAILY [facility] Administration Carvedilol 12.5 mg 10/31/18 22:00 11/06/18 09:36 Coreg - PO Not Given BID [facility] Clopidogrel Bisulfate 75 mg 11/01/18 10:00 11/06/18 09:36 Plavix - PO Not Given DAILY [facility] Collagenase 1 applic 11/01/18 10:00 11/06/18 09:36 Santyl - TP 1 applic DAILY [facility] Administration Protocol Fentanyl 50 mcg 10/31/18 16:28 Sublimaze Injection - IVPUSH Q5M PRN PAIN-PACU ORDER X 4 DOSES ONLY Heparin Sodium (Porcine) 5,000 unit 10/31/18 22:00 11/05/18 21:44 Heparin - SQ Not Given TID [facility] Vancomycin HCl 1,000 mg in 250 mls @ 200 mls/hr 11/01/18 10:00 11/06/18 09:25 Vancomycin (Pre-Docked) IVPB 200 mls/hr Q24H [facility] Administration Protocol Ibuprofen 600 mg 10/31/18 16:28 11/05/18 21:41 Motrin - PO 600 mg Q6H PRN Administration FEVER Insulin Aspart 1 vial 10/31/18 16:30 11/06/18 06:35 Novolog Vial Sliding Scale - SQ Not Given ACHS [facility] Protocol Insulin Detemir 25 units 11/01/18 22:00 11/05/18 21:42 Levemir Vial SQ 25 units HS [facility] Administration Losartan Potassium 25 mg 11/01/18 10:00 11/06/18 09:35 Cozaar - PO Not Given DAILY [facility] Ondansetron HCl 4 mg 10/31/18 16:28 Zofran Injection IVPUSH Q6H PRN NAUSEA AND/OR VOMITING Oxycodone HCl 5 mg 11/04/18 15:13 11/05/18 23:52 Roxicodone - PO 5 mg Q6H PRN Administration PAIN LEVEL 6-10 Promethazine HCl 12.5 mg 10/31/18 16:28 Phenergan Injection - IVPUSH Q6H PRN NAUSEA-FOR RESCUE AFTER 15 MIN Simethicone 40 mg 10/31/18 16:28 11/03/18 23:52 Mylicon Liquid - PO 40 mg QID PRN Administration GAS ASSESSMENT AND PLAN: This is a 58 year old woman with a history of type 2 DM, HTN, hyperlipidemia, PAD who presented to the ED with a MRSA infected wound of her right 4th finger that did not respond to Bactrim. 1. Right 4th finger paronychia with cellulitis and osteomyelitis - s/p I&D 10/25 - culture growing MRSA - Has PICC to complete 6 weeks of Vancomycin at [facility] 2. PAD with right 3rd toe gangrene - s/p right SFA angioplasty and stent 10/31 - Plan for right 3rd toe amputation today - Continue aspirin, Plavix 3. Type 2 diabetes mellitus - Continue Levemir, Novolog sliding scale 4. HTN - Continue Cozaar, Coreg 5. Hyperlipidemia
[2018-11-06] MEDS ORDERED: MIDAZOLAM HCL 2 MG/2 ML SINGLE DOSE VIAL ONE (10:44)
[2018-11-06 10:54] LABS: ANISOCYTOSIS 1+; MACROCYTOSIS 0; PLATELET ESTIMATE NORMAL
[2018-11-06] MEDS ORDERED: LIDOCAINE HCL 1%, 10 MG/ML (20ML VIAL) NR ONE (11:20)
[2018-11-06] MEDS ORDERED: SUCCINYLCHOLINE CHLORIDE 200 MG/10 ML SYRINGE ONE (11:52)
--- NOTE | 2018-11-06 11:53 | OP ---
Operative Note - Note: Operative Date: 11/06/18 Pre-Operative Diagnosis: right third digit gangrene Operation: right third digit amputation Post-Operative Diagnosis: Same as Pre-op Surgeon: Yogi Keene Anesthesia: Local, MAC Specimens Removed: right third toe Estimated Blood Loss (mls): 5 Operative Report Dictated: Yes
[2018-11-06] MEDS ORDERED: ACETAMINOPHEN 325 MG TABLET (FP) PO PRN (12:10)
[2018-11-06] MEDS ORDERED: SIMETHICONE 40 MG/0.6 ML BOTTLE PO PRN (12:10)
[2018-11-06] MEDS ORDERED: IBUPROFEN 600 MG TABLET (FP) PO PRN (12:10)
[2018-11-06] MEDS ORDERED: oxyCODONE HCL 5 MG TABLET PO PRN (12:10)
[2018-11-06] MEDS ORDERED: ONDANSETRON 4 MG/2 ML VIAL IVPUSH PRN (12:10)
[2018-11-06] MEDS ORDERED: PROMETHAZINE HCL 25 MG/1 ML VIAL IVPB PRN (12:10)
--- NOTE | 2018-11-06 13:01 | OP ---
DATE OF OPERATION: 11/06/2018 PREOPERATIVE DIAGNOSIS: Right 3rd digit gangrene. POSTOPERATIVE DIAGNOSIS: Right 3rd digit gangrene. PROCEDURE: Right 3rd toe amputation. SURGEON: Yogi Keene DPM INTELLIGENCE CLERK: None. ANESTHESIA: IV sedation with local. HEMOSTASIS: Surgical dissection. PACKIN/4-inch packing. COMPLICATIONS: None. PATHOLOGY: Right 3rd toe. DESCRIPTION OF PROCEDURE: The patient was brought to the operating room and placed on the operating table in the supine position. Following induction of IV sedation, local anesthesia was achieved with 10 mL of 2% lidocaine plain. The right foot was scrubbed, prepped, and draped in the usual sterile fashion. Attention was directed to the right 3rd toe where there were dry, gangrenous changes with mummification of the toe visualized. I began by performing a 3-cm linear longitudinal incision over the 3rd metatarsal. The incision was carried distally and circumferentially about the 3rd toe in a tennis racket fashion. The incision was deepened using blunt and sharp dissection taking care to retract vital neural and vascular structures. Bleeders were cauterized and ligated as needed. Next, the 3rd toe was disarticulated at the metatarsophalangeal joint. This was removed from the operative site once all ligamentous attachments were released. The toe was sent for pathology. Next, I performed a dorsal linear capsulotomy and periosteal incision to expose the 3rd metatarsal head. The 3rd metatarsal head was resected and removed using a sagittal saw. A portion of the bone was sectioned for bone culture, and the remainder was sent for proximal bone pathology. A wound culture was then obtained. The surgical site was copiously irrigated with sterile saline, 1/4-inch iodoform packing was implemented into the joint to accommodate for infection. The incision was then coapted using 3-0 nylon in a simple interrupted suture fashion. Following conclusion of the procedure, the surgical site was covered with Xeroform, and a sterile compressive dressing was applied to the right foot consisting of sterile gauze, Kerlix, and an Nicholas wrap. The patient tolerated the procedure and anesthesia well without complications. He was transferred from the operating room to the recovery unit with vital signs stable and neurovasculature intact to the right foot. SAMMY RAMÍREZ/[id number]
[2018-11-06] MEDS: HEPARIN NA (PORCINE) 5,000 UNITS/ML 1ML VIAL SQ SCH (21:54)
[2018-11-06] MEDS ORDERED: INSULIN (LEVEMIR) 100 UNITS/ML UNITS SQ SCH (22:00)
[2018-11-07] MEDS: HEPARIN NA (PORCINE) 5,000 UNITS/ML 1ML VIAL SQ SCH ×2 (06:14→14:41)
[2018-11-07] MEDS: INSULIN SLIDING SCALE (NOVOLOG) 1 VIAL SQ SCH ×3 (06:17→17:18)
[2018-11-07 07:56] LABS: HEMATOCRIT 23.1 % (32.4-45.2); HEMOGLOBIN 7.9 GM/dL (10.7-15.3); MCH 29.8 pg (25.7-33.7); MEAN CELL VOLUME 87.6 fl (80-96); MEAN PLT VOLUME 9.1 fl (7.5-11.1); PLATELET COUNT 191 K/MM3 (134-434); RBC 2.63 M/mm3 (3.60-5.2); WHITE BLOOD COUNT 10.3 K/mm3 (4.0-10.0)
[2018-11-07] MEDS ORDERED: COLLAGENASE CLOSTRIDIUM HIST. 30 GRAMS TUBE TP SCH (10:00)
[2018-11-07] MEDS ORDERED: ASPIRIN 81 MG CHEWABLE TABLETS PO SCH (10:00)
[2018-11-07] MEDS ORDERED: CLOPIDOGREL BISULFATE 75 MG TABLET (FP) PO SCH (10:00)
[2018-11-07] MEDS ORDERED: VANCOMYCIN 1 GRAM (PRE-DOCKED) 1,000 MG/250 ML BAG IVPB SCH (10:00)
[2018-11-07] MEDS ORDERED: LOSARTAN POTASSIUM 25 MG TABLET PO SCH (10:00)
[2018-11-07] MEDS ORDERED: BACITRACIN 15 GM TUBE TOPICAL OINTMENT TP SCH (10:00)
[2018-11-07] MEDS: CARVEDILOL 12.5 MG TABLET (FP) PO SCH (10:21)
[2018-11-07] MEDS ORDERED: INSULIN (NOVOLOG) ASPART 100 UNITS/ML 10ML VIAL ONE ×2 (11:47→16:52)
--- NOTE | 2018-11-07 15:11 | PN ---
Progress Note (short form) - Note Progress Note: Podiatry F/U: Seen/evaluated at bedside NAD. Pain controlled, denies F/V/N/C/SOB/CP. AFebrile. S/p Right third digit amputation for gangrene POD#1. CHERELLE: R foot: pedal pulses 1/4, TG wnl. Sutures well coapted, packing in place distally, no dehiscence noted, no purulence, no fluctuance, no streaking cellulitis, no signs of active infection. Mild tenderness to palpation. No ischemic changes to the foot. L foot: diabetic ulcers plantar arch and plantar heel with mixed fibrogranular base, moderate fibrotic slough, regular borders, moderate green discharge, no purulence, no fluctuance, no streaking cellulitis, no signs of active infection. No ischemic changes to the foot. Imp: 58 year old diabetic female s/p Right third digit amputation POD#1 and left foot diabetic ulcers 1. Bacitracin and DSD R Foot 2. Partial weightbearing R foot 3. IV abx per infectious disease 4. Patient will need nursing services in SNF. Dressings will consist of santyl and gentamycin ointment daily to the left foot and bactroban with dry sterile dressing to the right foot every other day. 5. Patient to f/u with me in wound healing center next Tuesday. [phone]. Regine Keene DPM
[2018-11-07] MEDS ORDERED: FERROUS SO4 325 MG TABLET (FP) PO SCH (17:30)
--- NOTE | 2018-11-07 17:53 | DS ---
Physical Exam: SUBJECTIVE: Patient seen and examined OBJECTIVE: Vital Signs Period Temp Pulse Resp BP Sys/Zhang Pulse Ox Last 24 Hr 98.2 F-99.2 F 74-81 18-20 105-145/44-74 95-96 PHYSICAL EXAM GENERAL: The patient is awake, alert, and fully oriented, in no acute distress. HEAD: Normal with no signs of trauma. EYES: PERRL, extraocular movements intact, sclera anicteric, conjunctiva clear. ENT: Ears normal, nares patent, oropharynx clear without exudates, moist mucous membranes. NECK: Trachea midline, full range of motion, supple. LUNGS: Breath sounds equal, clear to auscultation bilaterally, no wheezes, no crackles, no accessory muscle use. HEART: Regular rate and rhythm, S1, S2 without murmur, rub or gallop. ABDOMEN: Soft, nontender, nondistended, normoactive bowel sounds, no guarding, no rebound, no hepatosplenomegaly, no masses. EXTREMITIES: 2+ pulses, warm, well-perfused, no edema. NEUROLOGICAL: Cranial nerves II through XII grossly intact. Normal speech, gait not observed. PSYCH: Normal mood, normal affect. SKIN: Warm, dry, normal turgor, no rashes or lesions noted. LABS Laboratory Results - last 24 hr 11/06/18 11/07/18 11/07/18 21:52 06:12 06:30 WBC 10.3 H RBC 2.63 L Hgb 7.9 L Hct 23.1 L MCV 87.6 MCH 29.8 MCHC 34.0 RDW 15.0 Plt Count 191 MPV 9.1 POC Glucometer 218 168 11/07/18 11/07/18 11:41 16:50 WBC RBC Hgb Hct MCV MCH MCHC RDW Plt Count MPV POC Glucometer 224 293 HOSPITAL COURSE: Date of Admission:10/24/18 Date of Discharge: 11/07/18 Discharge Summary Reason For Visit: PARONYCHIA OF RIGHT RING FINGER Condition: Stable - Instructions Diet, Activity, Other Instructions: YOUR VISIT You came to the hospital because you had a finger infection. You were admitted to the hospital for care of this concern. Your MRI revealed infection of the bone (osteomyelitis) and you will require additional antibiotics via a PICC line. You also had a vein in your right leg stented and your right 3rd toe removed. You are being discharged to facility to continue your antibiotic course and care for your feet. Your hemoglobin level, a part of your red blood cells, was found to be low. You will be given a prescription for an iron supplement, and you need to follow up with your primary care doctor to get your blood tested again. MEDICATIONS Please continue to take your home medications as prescribed. You will need to continue taking the following *NEW* medications: - Vancomycin 1 gram IV every 12 hours to complete a 6 week course; last day antibiotics December 05, 2018 for 5 more weeks. - Iron supplementation 350mg twice a day. You will need to pick this up at the pharmacy. You were also taking oxycodone 5mg every 6 hours as needed for pain. You may address it with the new facility to determine if you need more pain control. ADDITIONAL CARE Please make an appointment with the following: your primary care provider, Yahir Lloyd, 1 week from today. You will need your hemoglobin rechecked. surgeon, Dr. Olvera, within 1 week of discharge. infectious disease physician, Dr. Bishop, within 1-2 weeks after discharge at wound care clinic. vascular surgeon, Dr. Jones within 2 weeks after discharge. tip stitcher, Dr. Keene, [facility]. [phone] WOUND CARE Dressings will consist of santyl and gentamycin ointment daily to the left foot and bactroban with dry sterile dressing to the right foot every other day. ADDITIONAL INFORMATION Please call 911 or come directly to the emergency department if you experience unusual headache, vision change, shortness of breath, chest pain, numbness, tingling, loss of alertness/awareness, loss of function, unusual bleeding or any alarming symptoms. Referrals: Reji Bishop MD [Staff Physician] - 1 Week Yogi Keene MD [Staff Physician] - Yahir Lloyd PA [Primary Care Provider] - 1 Week Delvin Olvera MD [Staff Physician] - 1 Week Gen Jones DO [Staff Physician] - [facility]position[facility] - Home Medications Comprehensive Discharge Medication List: Ambulatory Orders Aspirin [ASA -] 81 mg PO DAILY 05/03/17 Basaglar Kwikpen U-100 22 units SQ HS 08/22/18 Clopidogrel 75 mg PO DAILY 08/22/18 Gentamicin 0.1% Ointment [Garamycin 0.1% Ointment -] 1 applic TP DAILY 09/05/18 Losartan Potassium [Cozaar] 25 mg PO DAILY 09/05/18 Multivitamin [Multiple Vitamins] 1 tab PO DAILY 10/03/18 Ascorbate Calcium [Vitamin C] 500 mg PO BID 10/25/18 Blood Sugar Diagnostic [Freestyle Insulinx Test Strips] 1 each TP DAILY Insulin Lispro [Admelog] 12 units SQ DAILY 10/25/18 Vancomycin (Pre-Docked) 1,000 mg IVPB DAILY 1 Days bag 10/29/18 Bacitracin - [Bacitracin Topical Ointment -] 1 applic TP DAILY tube 11/07/18 Collagenase Clostridium Hist. [Santyl -] 1 applic TP DAILY tube 11/07/18 Ferrous Sulfate [Feosol] 325 mg PO BID 30 Days #60 mg 11/07/18 oxyCODONE HCL [Roxicodone -] 5 mg PO Q6H PRN tablet MDD 20mg 11/07/18 - Discharge Referral Referred to [facility] No ATTENDING PHYSICIAN STATEMENT I saw and evaluated the patient. I reviewed the resident's note and discussed the case with the resident. I agree with the resident's findings and plan as documented. SUBJECTIVE: OBJECTIVE: ASSESSMENT AND PLAN:
--- NOTE | 2018-11-07 18:14 | PN ---
Teaching Attending Note Name of Resident: Anaid Martinez ATTENDING PHYSICIAN STATEMENT I saw and evaluated the patient. I reviewed the resident's note and discussed the case with the resident. I agree with the resident's findings and plan as documented. SUBJECTIVE: some pain post-op R foot. no fever/chills. OBJECTIVE: Afebrile, Hemodynamcially Stable. Last Vital Signs Temp Pulse Resp BP Pulse Ox 98.2 F 80 20 126/58 L 96 11/07/18 14:42 11/07/18 14:42 11/07/18 14:42 11/07/18 14:42 11/07/18 09:00 HEENT: Atraumatic, Normocephalic. HEART: S1S2, RRR LUNGS: Clear to auscultation ABDOMEN: Obese, soft, non-tender, normal BS EXTREMITIES: No edema. R foot dressed post-op. L foot: s/p amputation first three toes. 2 large ulcers on plantar aspect of L foot, non-infected. R 4th finger less erythematous/tender. Laboratory Results - last 24 hr 11/06/18 11/07/18 11/07/18 21:52 06:12 06:30 WBC 10.3 H RBC 2.63 L Hgb 7.9 L Hct 23.1 L MCV 87.6 MCH 29.8 MCHC 34.0 RDW 15.0 Plt Count 191 MPV 9.1 POC Glucometer 218 168 11/07/18 11/07/18 11:41 16:50 WBC RBC Hgb Hct MCV MCH MCHC RDW Plt Count MPV POC Glucometer 224 293 Home Medications Medication Instructions Recorded Aspirin [ASA -] 81 mg PO DAILY 05/03/17 Basaglar Kwikpen U-100 22 units SQ HS 08/22/18 Clopidogrel 75 mg PO DAILY 08/22/18 Gentamicin 0.1% Ointment 1 applic TP DAILY 09/05/18 [Garamycin 0.1% Ointment -] Losartan Potassium [Cozaar] 25 mg PO DAILY 09/05/18 Multivitamin [Multiple Vitamins] 1 tab PO DAILY 10/03/18 Ascorbate Calcium [Vitamin C] 500 mg PO BID 10/25/18 Blood Sugar Diagnostic [Freestyle 1 each TP DAILY 10/25/18 Insulinx Test Strips] Insulin Lispro [Admelog] 12 units SQ DAILY 10/25/18 Vancomycin (Pre-Docked) 1,000 mg IVPB DAILY 1 Days bag 10/29/18 Bacitracin - [Bacitracin Topical 1 applic TP DAILY tube 11/07/18 Ointment -] Collagenase Clostridium Hist. 1 applic TP DAILY tube 11/07/18 [Santyl -] Ferrous Sulfate [Feosol] 325 mg PO BID 30 Days #60 mg 11/07/18 oxyCODONE HCL [Roxicodone -] 5 mg PO Q6H PRN tablet MDD 20mg 11/07/18 ASSESSMENT AND PLAN: 58 year old female with past medical history of DM 2, HTN, HLD, PVD s/p femoral artery DCP angioplasty, popliteal artery angioplasty, s/p amputations of first 3 toes L foot, chronic ulcers on plantar aspect L foot (follows with wound clinic), 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 Jones, scheduled for CT Angio in 2 weeks apparently), presented with worsening wound of the right 4th finger that started 4 weeks ago, seen and attended to by both Dr. Jones and Dr. Olvera. Wound Cx on prior I and D grew MRSA. She failed out-patient treatment with Bactrim. 1. Right 4th finger Paronychia with cellulitis and osteomyelitis s/p I&D 10/25 - culture growing MRSA Has PICC to complete 6 weeks of Vancomycin at [facility] 2. PAD s/p Femoral and Popliteal Angioplasty with right 3rd toe gangrene s/p right SFA angioplasty and stent 10/31 POD 1 s/p R third toe amputation. Surgical Cx positive for Pseudomonas - further Abx therapy as per ID. Afebrile, Hemodynamically Stable. Continue Aspirin, Plavix Unclear why not on statin - will defer to Vascular Sx. 3. Dm 2 Uncontroled, A1C 9.4 - Continue Levemir, Novolog sliding scale. To resume home regimen on discharge with emphasis on compliance and up-titration as necessary. 4. HTN - Continue Cozaar, Coreg 5. Chronic LLE ulcers - clean. Hx Osteomyelitis s/p Abx therapy. Continue Wound care. Follows at wound clinic with Dr. Jones. DVT Px - Heparin SQ Dispo - accepted to SNF
[2018-11-07 19:00] VITALS: BP 141/75; PULSE 83; TEMP 98.9
--- NOTE | 2018-11-09 08:59 | PATH ---
Surgical Pathology Report Patient Name: YAMIL LEWIS Med. Rec. #: [id number] /Age/Gender: 1960 (Age: 58) / F Account: [id number] Location: [facility]/SURG Taken: 11/06/2018 Received: 11/06/2018 Reported: 11/09/2018 Physicians: Yogi Keene DPM Specimen(s) Received A: RIGHT THIRD DIGIT TOE B: RIGHT PROXIMAL METATARSAL BONE Clinical History Right third toe gangrene Final Diagnosis A. THIRD DIGIT TOE, RIGHT, AMPUTATION: DIGIT WITH MARKED ACUTE AND CHRONIC INFLAMMATION, ULCERATION, GANGRENOUS NECROSIS INVOLVING SOFT TISSUE MARGIN AND UNDERLYING BONE. ACUTE OSTEOMYELITIS. BONE SURGICAL MARGIN IS VIABLE. B. PROXIMAL METATARSAL BONE, RIGHT, EXCISION: BONE WITHOUT SIGNIFICANT PATHOLOGIC FINDINGS. NO OSTEOMYELITIS IDENTIFIED. Electronically Signed Tabatha Milligan M.D. Gross Description A. Received in formalin labeled "right third digit toe" is a toe amputation specimen which measures 2 cm from tip to soft tissue margin, and 4.5 cm from tip of toe to bone surgical margin. Diameter varies from 1.2-1.5 cm. The digit is black, gangrenous and involves soft tissue margin and underlying bone. Sectioning shows bone is focally hemorrhagic and soft. Gr[employer] 1 [employer] 5 Teacher sections are submitted after brief decalcification in 3 cassettes as follows: 1- bone margin; 2- soft tissue margin; 3- client service representative section of gangrenous digit. B. Received in formalin labeled "right proximal metatarsal bone" is a portion of bone measuring 1.5 x 1.2 x 1 cm. Cut section is unremarkable. Entire specimen is submitted after brief decalcification in one cassette. MLSZ/11/06/2018 sanml/11/06/2018
--- NOTE | 2018-11-14 08:33 | PN ---
Physical Exam: PATIENT WAS TO BE DISCHARGED TO SNF FOR TIRE SETTER ANTIBIOTICS BUT DID NOT GET SNF PLACEMENT BEFORE WEEKEND. SUBJECTIVE: 58 y/o female with PMH DM, HTN, HLD, gangrene of both feet s/p amputations of 3 left toes (hx of MRSA), PVD with femoral artery DCP angioplasty , popliteal artery angioplasty, whom presented to the ED from wound care due to worsening wound of the right 4th finger that started 4 weeks ago 2.[address] biting fingernail. Dr[address] Jones and Dr. Olvera I/D found site MRSA (+). On Bactrim for 3 weeks. Vanc and Zosyn given in ED. Pt seen and examined at bedside today. She states her finger is not painful today. She states there is some discharge from the wound; purulent but occurred overnight only. She is aware she is scheduled for PICC line. She denies NVFD. OBJECTIVE: Vital Signs Period Temp Pulse Resp BP Sys/Zhang Pulse Ox Last 24 Hr 97.4 F-98.9 F 68-80 18-20 118-139/60-73 96-96 PHYSICAL EXAM GENERAL: AOx3, in no acute distress. HEAD: NCAT EYES: NATALIE, EOMI, conjunctiva clear. ENT: Ears normal, nares patent, oropharynx clear without exudates. Moist mucous membranes. NECK: Normal range of motion, supple without lymphadenopathy, JVD, or masses. LUNGS: CTAB. No wheezes, and no crackles. No accessory muscle use. HEART: RRR s1 s2 ABDOMEN: Soft, BS present in all 4 quadrants, non-distended, no JVD, MUSCULOSKELETAL: No bony deformities or tenderness. No CVA tenderness. UPPER EXTREMITIES: RUE 4th digit lacerated and covered w bandage. No dc/ purulence. LOWER EXTREMITIES: Well healed bypass scar Lle. L foot with multiple milly amputations, all well healed. L foot with 2 plantar ulcers one at mid foot approximately 3.5x2.5x2cm, other over heel approx 2x1.5x1.5cm. Both clean based with scant fibrinous exudate and serous drainage. No surrounding erythema. No foul odor. R foot with denuded skin at 4th toe, nearly circumferential. Clean based with scant necrotic tissue at lateral edge of 4th toe, no erythema no drainage. NEUROLOGICAL: Cranial nerves II-XII intact. Normal speech. Gait not appreciated. PSYCHIATRIC: Cooperative. Good eye contact. Appropriate mood and affect. SKIN: Warm, dry, normal turgor, no rashes or lesions noted, normal capillary refill. LABS Laboratory Results - last 24 hr 10/26/18 10/26/18 10/27/18 17:18 22:04 04:27 POC Glucometer 267 233 222 10/27/18 10/27/18 10/27/18 06:06 06:06 06:21 WBC 5.5 RBC 2.99 L Hgb 8.8 L Hct 26.2 L MCV 87.6 MCH 29.3 MCHC 33.4 RDW 14.8 Plt Count 189 MPV 8.7 Absolute Neuts (auto) 2.7 Neutrophils % 50.0 Lymphocytes % 36.5 Monocytes % 7.4 Eosinophils % 5.7 H Basophils % 0.4 Nucleated RBC % 0 Sodium 136 Potassium 4.9 Chloride 104 Carbon Dioxide 25 Anion Gap 7 L BUN 27.6 H Creatinine 1.1 Est GFR (CKD-EPI)AfAm 64.54 Est GFR (CKD-EPI)NonAf 55.69 POC Glucometer 221 Random Glucose 230 H Calcium 8.9 Phosphorus 3.6 Magnesium 2.1 Total Bilirubin 0.3 AST 20 ALT 22 Alkaline Phosphatase 97 Total Protein 6.6 Albumin 2.9 L 10/27/18 10/27/18 11:25 17:01 WBC POC Glucometer 203 235 ASSESSMENT/PLAN: 58 y/o female with PMH DM, HTN, HLD, 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 Failed out-patient treatment with Bactrim. # RUE 4th Digit paronychia with surrounding cellulitis. - S/p I&D - Wound Cx pending - Prior Cx positive for MRSA - Received 1 dose Daptomycin on admission - ID consulted: COMPLETE 6W COURSE VANCOMYCIN 1GM Q12H. D/C ZOSYN - MRCP RUE: (+) osteomyelitis - PICC line needed for long-term abx therapy # Hyperkalemia, resolved - Insulin # DM 2 - Uncontrolled, A1C 9.4 - ISS (levemir and novolog) # HTN - Cont. home regimen: losartan, coreg. # Chronic Ulcers LLE - clean, dry, intact - H/o osteomyelitis, completed abx therapy - Cont. wound care. # PAD s/p femoral and popliteal angioplasty - Cont. asa/plavix - F/u need for statin with vascular sx # DVT prophylaxis - Heparin SQ # F/E/N - NS - Cont. to monitor electrolytes - Low sodium/diabetic diet Charli Hummel MD Visit type - Emergency Visit Emergency Visit: No - New Patient This patient is new to me today: No - Critical Care Critical Care patient: No - Discharge Referral Referred to [facility] No ATTENDING PHYSICIAN STATEMENT I saw and evaluated the patient. I reviewed the resident's note and discussed the case with the resident. I agree with the resident's findings and plan as documented. SUBJECTIVE: OBJECTIVE: ASSESSMENT AND PLAN:
== END 2018-11-07 20:53 | DRG 181 ==
LOC: JER 16:29 → JERBED 18:44 → J7W 20:51
PROVIDERS: ADMIT Internal Medicine
PROC: 0H9FXZX Drainage of Right Hand Skin, External Approach, Diagnostic (ICD-10-PCS; 2018-10-25)
PROC: 02HV33Z Insertion of Infusion Device into Superior Vena Cava, Percutaneous Approach (ICD-10-PCS; 2018-10-27)
PROC: B518ZZA Fluoroscopy of Superior Vena Cava, Guidance (ICD-10-PCS; 2018-10-27)
PROC: 047P35Z Dilation of Right Anterior Tibial Artery with Two Drug-eluting Intraluminal Devices, Percutaneous Approach (ICD-10-PCS; 2018-10-31)
PROC: 3E05317 Introduction of Other Thrombolytic into Peripheral Artery, Percutaneous Approach (ICD-10-PCS; 2018-10-31)
PROC: B40DYZZ Plain Radiography of Aorta and Bilateral Lower Extremity Arteries using Other Contrast (ICD-10-PCS; 2018-10-31)
PROC: 0Y6M0ZC Detachment at Right Foot, Partial 3rd Ray, Open Approach (ICD-10-PCS; 2018-11-06)
PROC: 0Y6T0Z0 Detachment at Right 3rd Toe, Complete, Open Approach (ICD-10-PCS; principal; 2018-11-06 11:00)
DX: E11.52 Type 2 diabetes mellitus with diabetic peripheral angiopathy with gangrene (principal); I73.9 Peripheral vascular disease, unspecified; I10 Essential (primary) hypertension; L03.011 Cellulitis of right finger; E87.5 Hyperkalemia; E11.69 Type 2 diabetes mellitus with other specified complication; E11.65 Type 2 diabetes mellitus with hyperglycemia; M86.9 Osteomyelitis, unspecified; E78.5 Hyperlipidemia, unspecified; E11.621 Type 2 diabetes mellitus with foot ulcer; L97.528 Non-pressure chronic ulcer of other part of left foot with other specified severity; I96 Gangrene, not elsewhere classified
CPT/HCPCS: 36415; 36569; 73130-TC-RT-FY; 73218-TC-RT; 73630-TC-RT-FY; 76000-TC-FY; 77001-TC-FY; 80048; 80053; 80076; 81003; 82009; 82272; 82550; 82962; 83036; 83605; 83735; 84100; 85025; 85027; 85651; 86140; 87040; 87070; 87075; 87186; 87205; 88305-TC; 88311-TC; 93005; 93010; 93970-TC; 94640; 94760; 97116-GP; 97162-GP; 99285-25; C1751; G0277; G0463-25; G0480; J0878; J1644; J7030

== ENCOUNTER 2019-03-20 08:14 | Emergency (ER) | payer OTHER ==
[2019-03-20 08:27] VITALS: BMI 26.5
--- NOTE | 2019-03-20 08:47 | PDOC ---
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 Patient reports that she sees Dr. Keene with wound clinic for care of her bilateral foot ulcers. Has had amputations of toes 1-3 on the left foot, toe 3 on the right foot. Has known stable dry gangrene of the right 2nd and 4th toes of the right foot, but refuses further amputations. Has had hyperbarics already but this was stopped because the toe is already , no further improvements. Sees Wound Clinic each week for care, appointment today at 9:30AM but came to ED for abdominal pain. Has one week of abdominal pain, described as cramping that occurs throughout her abdomen, comes and goes. Denies any history of abdominal surgeries. Is tolerating PO, ate mashed potatoes for breakfast this AM, no nausea, no vomiting , no diarrhea, no sick contacts. Denies fever/chills. Denies urinary symptoms. Also having RLE cramping in her calf, normal pain for her given gangrene, has been taking home oxycodones for pain. Decided not to take it this morning, took an Aleve instead which did not help. Past History - Past Medical History Allergies/Adverse Reactions: Allergies Allergy/AdvReac Type Severity Reaction Status Date / Time Iodinated Contrast Media Allergy Verified 03/20/19 08:20 [Iodinated Contrast- Oral and IV Dye] Home Medications: Ambulatory Orders Aspirin [ASA -] 81 mg PO DAILY 05/03/17 Basaglar Kwikpen U-100 22 units SQ HS 08/22/18 Ascorbate Calcium [Vitamin C] 500 mg PO BID 10/25/18 Insulin Lispro [Admelog] 12 units SQ DAILY 10/25/18 Ferrous Sulfate [Feosol] 325 mg PO BID 30 Days #60 mg 11/07/18 Cyanocobalamin [Vitamin B12 -] 1 tab PO BID 03/06/19 Nitrofurantoin Monohyd/M-Cryst [Macrobid -] 100 mg PO BID #14 capsule 03/20/19 Anemia: Yes Asthma: No Cancer: Yes (uterus cone biopsy freezing) Cardiac Disorders: Yes CVA: Yes (patient thinks she had a stroke in the past) COPD: No CHF: Yes Dementia: No Diabetes: Yes GI Disorders: No Disorders: No HTN: Yes Hypercholesterolemia: Yes Liver Disease: No Seizures: No Thyroid Disease: No - Surgical History Abdominal Surgery: No Appendectomy: No Cardiac Surgery: No Cholecystectomy: No Lung Surgery: No Neurologic Surgery: No Orthopedic Surgery: Yes (amp left great toe,2nd toe, 5th toe) - Immunization History Immunization Up to Date: Yes - Psycho Social/Smoking Cessation Hx Smoking History: Unknown if ever smoked Have you smoked in the past 12 months: No If you are a former smoker, when did you quit?: 2000 Hx Alcohol Use: No Drug/Substance Use Hx: No Substance Use Type: None Hx Substance Use Treatment: No Review of Systems - Review of Systems Able to Perform ROS?: Yes Constitutional: No: Chills, Fever, Weakness HEENTM: No: Eye Pain, Nose Pain, Hearing Loss, Throat Pain, Difficulty Swallowing Respiratory: No: Cough, Shortness of Breath, Wheezing Cardiac (ROS): No: Chest Pain, Edema, Irregular Heart Rate, Lightheadedness, Palpitations, Syncope ABD/GI: Yes: Abdominal cramping. No: Constipated, Diarrhea, Nausea, Poor Appetite, Poor Fluid Intake, Vomiting : No: Burning, Dysuria, Discharge, Frequency, Flank Pain, Hematuria, Incontinence Musculoskeletal: No: Back Pain, Joint Pain, Joint Swelling, Muscle Pain, Muscle Weakness Integumentary: Yes: Other (gangrene to R 2nd and 4th toes) Neurological: No: Headache, Numbness, Weakness Endocrine: Yes: Symptoms Reported Hematologic/Lymphatic: Yes: Symptoms Reported All Other Systems: Reviewed and Negative *Physical Exam - Vital Signs Last Vital Signs Temp Pulse Resp BP Pulse Ox 97.9 F 92 H 22 H 137/69 99 03/20/19 08:30 03/20/19 08:25 03/20/19 08:25 03/20/19 08:30 03/20/19 08:25 - Physical Exam General Appearance: Yes: Nourished, Appropriately Dressed, Mild Distress, Obese HEENT: positive: EOMI, ARNEL, Normal ENT Inspection, Normal Voice, Symmetrical, Pharynx Normal, Hearing Grossly Normal. negative: Scleral Icterus (R), Scleral Icterus (L) Neck: positive: Trachea midline, Normal Thyroid, Supple. negative: Tender, Rigid, Lymphadenopathy (R), Lymphadenopathy (L), Tender lateral, Tender midline Respiratory/Chest: positive: Lungs Clear, Normal Breath Sounds. negative: Chest Tender, Respiratory Distress, Accessory Muscle Use, Crackles, Rales, Rhonchi, Stridor, Wheezing, Hyperresonant Cardiovascular: positive: Regular Rhythm, Regular Rate, Other (RLE: decreased DP to R foot, 1+ PT pulse). negative: Edema, Murmur Vascular Pulses: Dorsalis-Pedis (R): 0, Doralis-Pedis (L): 2+ Gastrointestinal/Abdominal: positive: Normal Bowel Sounds, Tender (diffusely, most suprapubic/RUQ), Soft. negative: Organomegaly, Pulsatile Mass, Distended, Guarding, Rebound Musculoskeletal: positive: Normal Inspection. negative: CVA Tenderness Extremity: positive: Normal Capillary Refill, Normal Range of Motion, Pelvis Stable, Calf Tenderness (posterior calf pain). negative: Normal Inspection, Pedal Edema, Swelling Integumentary: positive: Normal Color, Dry, Warm, Other (dry gangrene to right 2nd and 4th toes without any overlying erythema, skin appears red with mild bruising). negative: Jaundice, Cold, Clammy, Rash Neurologic: positive: credit historian II-XII NML intact, Fully Oriented, Alert, Normal Mood/ Affect, Normal Response, Sensory Deficit (decreased sensation to light touch to R foot) ED Treatment Course - LABORATORY CBC & Chemistry Diagram: 03/20/19 08:50 03/20/19 18:08 - RADIOLOGY Radiograph Interpretation: 03/20/19 16:04 CTAP: Multiplanar imaging was performed. No intravenous or enteric contrast was administered. No evidence of pneumoperitoneum, free intraperitoneal fluid or bowel obstruction. The appendix appears unremarkable. Colonic diverticulosis is seen without evidence of acute diverticulitis. There is no gross noncontrast small bowel pathology. The spleen demonstrates minimal to mild prominence measuring 12.4 cm in length no interval change is seen in comparison to a prior CT exam of 11/22/2017. A punctate splenic calcification is noted probably representing a granuloma. A 1 cm left adrenal nodule is seen without obvious interval change. The liver, pancreas, gallbladder , right adrenal gland and kidneys demonstrate no definite noncontrast pathology. There is no aortic aneurysm. No obvious lymphadenopathy is seen. Prominent atherosclerotic aortic mural calcifications are visualized. A small amount of air is seen within the urinary bladder lumen. - ? recent catheterization. No gross colovesical fistula is identified. Correlate clinically. The visualized osseous structures demonstrate no obvious acute pathology Medical Decision Making - Medical Decision Making 03/20/19 11:09 Patient presents with diffuse abdominal pain in the context of known poorly controlled DM and bilateral foot gangrene and amputations. Patient's foot exam is consistent with dry gangrene documented by wound care notes, on stable home dose of oxycodone, patient refusing further amputations despite discussion with her regarding risk of bloodstream infection, osteo, and further amputation of foot. Abdomen has pain diffusely but worse in RUQ and suprapubic regions. No abdominal surgeries, no fever or unstable VS. Concern for pancreatitis, GB disease, UTI. - CBC for eval infection - CMP for lytes eval - lipase for pancreatitis eval - lactic acid for eval abdominal pain/sepsis from foot - VBG for eval lactic acidosis - CXR - 2L NS, 4mg morphine for severe pain control - CTAP with IV contrast for evaluation of abdominal pain pending Cr 03/20/19 12:25 Labs notable for: - WBC 15.9 - Gold tube hemolyzed and not reported to provider, 2nd sent also hemolyzed - Cr 1.4 hemolyzed, started on IV NS already - lactate 2.6, started on IV NS already - K 7.1, hemolyzed Patient needs CTAP with contrast. Cr elevation mild, low concern for worsening Cr function. Patient stable to go for CTAP at this time. Will re-draw CMP/lipase/CP. 03/20/19 13:58 Patient has documented contrast allergy, says her reaction is hives/throat swelling. Switching to non-contrast CTAP. Re-evaluated, still having mild intermittent cramping. 03/20/19 16:56 CTAP: No evidence of pneumoperitoneum, free intraperitoneal fluid or bowel obstruction. The appendix appears unremarkable. Colonic diverticulosis is seen without evidence of acute diverticulitis. There is no gross noncontrast small bowel pathology. A small amount of air is seen within the urinary bladder lumen. No gross colovesical fistula is identified. The visualized osseous structures demonstrate no obvious acute pathology Repeat labs notable for: - K 5.9, giving 7U insulin, hyperglycemic to 300s 03/20/19 18:30 UA shows >1000 bacteria, has WBC 15.9 consistent with UTI, giving 1g ceftriaxone. Repeating K and lactate for improvement. Otherwise stable to send home with PO Abx, no prior urine culture results. 03/20/19 19:35 Lactate 2.1, down after fluids. Repeat K 4.8, down after insulin, glucose 230. Can be discharged home with outpatient Macrobid and f/u with PMD and wound clinic for gangrene care. Discharge - Discharge Information Problems reviewed: Yes Clinical Impression/Diagnosis: Gangrene of right foot Abdominal pain Qualifiers: Abdominal location: generalized Qualified Code(s): R10.84 - Generalized abdominal pain Condition: Stable - Additional Discharge Information Prescriptions: Nitrofurantoin Monohyd/M-Cryst [Macrobid -] 100 mg PO BID #14 capsule - Follow up/Referral Referrals: Jordan Samuels MD [Primary Care Provider] - Yogi Keene MD [Staff Physician] - - Patient Discharge Instructions Patient Printed Discharge Instructions: DI for Urinary Tract Infection (UTI), DI for Chronic Pain -- Adult Additional Instructions: Please see your physician for your pain medications. You have to follow-up with wound care for your wounds. Take your home pain medications as needed for pain. Your abdominal pain is not being caused by a serious illness, and is related to a urinary tract infection. Please take the antibiotics as prescribed. Please return to the ED if you have new or worsening symptoms. - Post Discharge Activity
[2019-03-20] MEDS ORDERED: SODIUM CHLORIDE 2,041 ML IV ONE (09:02)
[2019-03-20] MEDS ORDERED: morphine CARPU-JECT 4 MG/1 ML DISP.SYRIN IVPUSH ONE (09:03)
[2019-03-20] MEDS ORDERED: morphine SULFATE 4 MG/ML VIAL ONE (09:11)
[2019-03-20 09:29] LABS: VENOUS PC02 52.7 mmHg (38-52); VENOUS PH 7.35 (7.31-7.41)
[2019-03-20 09:37] LABS: VENOUS PO2 < 49 mmHg (28-48)
[2019-03-20 09:48] LABS: BASO % 0.6 % (0-2.0); HEMATOCRIT 29.7 % (32.4-45.2); HEMOGLOBIN 9.7 GM/dL (10.7-15.3); LYMPH % 12.1 % (8-40); MCH 27.4 pg (25.7-33.7); MCHC 32.8 g/dl (32.0-36.0); MEAN CELL VOLUME 83.5 fl (80-96); MEAN PLT VOLUME 9.4 fl (7.5-11.1); MONO % 5.9 % (3.8-10.2); NEUT % 80.4 % (42.8-82.8); PLATELET COUNT 443 K/MM3 (134-434); RBC 3.55 M/mm3 (3.60-5.2); RDW 15.2 % (11.6-15.6); WHITE BLOOD COUNT 15.9 K/mm3 (4.0-10.0)
--- NOTE | 2019-03-20 10:09 | EKG ---
Test Reason : Blood Pressure : / mmHG Vent. Rate : 075 BPM Atrial Rate : 075 BPM P-R Int : 126 ms QRS Dur : 064 ms QT Int : 400 ms P-R-T Axes : 028 024 054 degrees QTc Int : 446 ms NORMAL SINUS RHYTHM NORMAL ECG WHEN COMPARED WITH ECG OF 25-OCT-2018 09:01, NO SIGNIFICANT CHANGE WAS FOUND Confirmed by Gildardo Gamboa MD ([id number]) on 03/20/2019 10:09:21 AM Referred By: Confirmed By:Gildardo Gamboa MD
--- NOTE | 2019-03-20 10:39 | PDOC ---
Documentation entered by Tereso Byrd SCRIBE, acting as scribe for Sebas Stone MD. Sebas Stone MD: This documentation has been prepared by the Carson cyr Daniel, SCRIBE, under my direction and personally reviewed by me in its entirety. I confirm that the documentation accurately reflects all work, treatment, procedures, and medical decision making performed by me. Attending Attestation - Resident Resident Name: YunggregorioJacques - ED Attending Attestation I have performed the following: I have examined & evaluated the patient, The case was reviewed & discussed with the resident, I agree w/resident's findings & plan, Exceptions are as noted - HPI HPI: 03/20/19 09:40 The patient is a 58 year old female with a past medical history of poorly controlled diabetes, HTN, and chronic lower extremity wounds (dry ganagrene on R toes and healing ulcer on plntar surface of L foot (follows up with dr. Keene and wound care), was sent to the emergency department by wound care for abdominal pain. The patient endorses approximately 1 week of intermittent low abdominal pain that she describes as crampy in nature. Patient does endorse mild nausea, denies any fever, chills, vomiting, constipation, dysuria, hematuria, frequency. Patient notes that her leg wounds are chronic and have not had any worsening in terms of pain, redness, foul odor, discharge. Patient denies any other complaints including any chest pain, shortness of breath, diaphoresis, lightheadedness, palpitations, diarrhea. Allergies: iodinated contrast media PCP: Jordan Samuels Hair Assistant: Yogi Keene - Physicial Exam PE: 03/20/19 10:34 GENERAL: The patient is awake, alert, and fully oriented, Nontoxic - in no acute distress. LUNGS: Breath sounds equal, clear to auscultation bilaterally. No wheezes, no rhonchi, no rales. HEART: Regular rate and rhythm, normal S1 and S2 without murmur, rub or gallop. ABDOMEN: Soft, mild diffuse tenderness, n rebound/guarding, no cva tenderness EXTREMITIES: ulcer without errythema/induration/dischage, +dry gangrene on R 2nd and 4rd toe (3rd was amputated) without erythema, dicharge, induration no signs of streaking. NEUROLOGICAL: No facial assymetry, Normal speech, PSYCH: Normal mood, normal affect. SKIN: Warm, Dry, normal turgor, - Medical Decision Making 03/20/19 10:39 Gangrene/wond stable pt with mild lower abd tenderness - will r/o UI, consider imaging 03/20/19 13:39 The patient's labs hemolyzed multiple times, initial labs noted for hyperkalemia however this Was a hemolyzed specimen, will repeat. Her lactic acid was also elevated at 2.6 will hydrate and Reassess 03/20/19 16:[address] noted for some air in the bladder, suggestive of cystitis awaiting UA to confirm UTI and repeat lab work signed out to evening team to fu and disposition Heart Score/ECG Review - ECG Impressions Comment:: 03/20/19 12:12 Twelve-lead EKG was performed and reviewed by me. There is normal sinus rhythm with a normal rate. rate of 75 The axis is normal. The intervals are normal. There is normal R wave progression There are no ST or T wave abnormalities. Impression: Normal sinus rhythm
[2019-03-20 12:16] LABS: CREATININE 1.4 mg/dL (0.55-1.3); POTASSIUM 7.1 mmol/L (3.5-5.1)
[2019-03-20 12:17] LABS: ALBUMIN 2.2 g/dl (3.4-5.0); SGPT/ALT 14 U/L (13-61)
[2019-03-20 15:35] LABS: ALBUMIN 2.1 g/dl (3.4-5.0); BILIRUBIN,TOTAL 0.3 mg/dL (0.2-1); BLOOD UREA NITROGEN 45.9 mg/dL (7-18); CALCIUM 8.2 mg/dL (8.5-10.1); CREATININE 1.3 mg/dL (0.55-1.3); POTASSIUM 5.9 mmol/L (3.5-5.1); TOT PROT 6.1 g/dl (6.4-8.2)
[2019-03-20] MEDS ORDERED: INSULIN REGULAR HUMAN 100 UNITS/ML *VIAL IVPUSH ONE (16:01)
[2019-03-20 17:36] LABS: EPI CELLS 2.8 /HPF (0-5/HPF); HYALINE CASTS 15 /lpf (0-8); URINE APPEARANCE TURBID; URINE BACTERIA 1277.3 /hpf (NEGATIVE); URINE BILIRUBIN NEGATIVE (NEGATIVE); URINE COLOR YELLOW; URINE GLUCOSE (UA) 2+ (NEGATIVE); URINE KETONE NEGATIVE (NEGATIVE); URINE LEUK ESTERASE TRACE (NEGATIVE); URINE NITRITE NEGATIVE (NEGATIVE); URINE PROTEIN 3+ (NEGATIVE); URINE RBC 2 /hpf (0-4); URINE WBC 25 /hpf (0-5)
[2019-03-20] MEDS ORDERED: CEFTRIAXONE 1,000 MG in DEXTROSE 5%-WATER - 50 ML IVPB ONE (17:49)
[2019-03-20 18:10] LABS: ALK PHOS 116 U/L (45-117); AMYLASE 34 U/L (25-115); ANION GAP 10 MMOL/L (8-16); BILIRUBIN,TOTAL 0.5 mg/dL (0.2-1); BLOOD UREA NITROGEN 39.7 mg/dL (7-18); CALCIUM 8.6 mg/dL (8.5-10.1); CHLORIDE 103 mmol/L (98-107); CO2 22 mmol/L (21-32); GLUCOSE,RANDOM 380 mg/dL (74-106); LIPASE 93 U/L (73-393); SGOT/AST 40 U/L (15-37); SODIUM 135 mmol/L (136-145); TOT PROT 6.8 g/dl (6.4-8.2)
[2019-03-20 18:19] VITALS: TEMP 98.4
[2019-03-20 19:36] LABS: ALBUMIN 2.3 g/dl (3.4-5.0); BILIRUBIN,TOTAL 0.4 mg/dL (0.2-1); BLOOD UREA NITROGEN 44.5 mg/dL (7-18); CALCIUM 8.9 mg/dL (8.5-10.1); CREATININE 1.3 mg/dL (0.55-1.3); POTASSIUM 4.8 mmol/L (3.5-5.1); TOT PROT 6.4 g/dl (6.4-8.2)
[2019-03-20 23:10] VITALS: BP 126/68; PULSE 68
== END 2019-03-20 23:13 | disposition home or self-care (01) ==
LOC: JER 08:14
PROC: 3E03329 Introduction of Other Anti-infective into Peripheral Vein, Percutaneous Approach (ICD-10-PCS; principal; 2019-03-20)
PROC: 3E013VG Introduction of Insulin into Subcutaneous Tissue, Percutaneous Approach (ICD-10-PCS; 2019-03-20)
PROC: 3E033NZ Introduction of Analgesics, Hypnotics, Sedatives into Peripheral Vein, Percutaneous Approach (ICD-10-PCS; 2019-03-20)
PROC: 3E0337Z Introduction of Electrolytic and Water Balance Substance into Peripheral Vein, Percutaneous Approach (ICD-10-PCS; 2019-03-20)
DX: E11.52 Type 2 diabetes mellitus with diabetic peripheral angiopathy with gangrene (principal); I96 Gangrene, not elsewhere classified; Z79.4 Long term (current) use of insulin; Z91.041 Radiographic dye allergy status; Z87.891 Personal history of nicotine dependence; I10 Essential (primary) hypertension; E78.00 Pure hypercholesterolemia, unspecified; I50.9 Heart failure, unspecified
CPT/HCPCS: 36415; 71045-TC-FY; 74176-TC; 80053; 81003; 82150; 82550; 82803; 82962; 83605; 83690; 84484; 85025; 85651; 87040; 87086; 87186; 93005; 93010; 96361; 96365; 96375; 99284-25; J7030

== ENCOUNTER 2019-03-27 09:35 | Inpatient (IN) | payer OTHER ==
[2019-03-27] MEDS ORDERED: SODIUM CHLORIDE 2,245 ML IV ONE (10:11)
[2019-03-27] MEDS ORDERED: methylPREDNISolone NA SUCC 125 MG/2 ML VIAL IVPUSH ONE (10:19)
[2019-03-27] MEDS ORDERED: HEPARIN NA (PORCINE) 5,000 UNITS/ML 1ML VIAL IVPUSH ONE (10:19)
--- NOTE | 2019-03-27 10:37 | PDOC ---
History of Present Illness - General Chief Complaint: Pain Stated Complaint: RT. LEG PAIN Time Seen by Provider: 03/27/19 10:02 History Source: Patient Exam Limitations: No Limitations - History of Present Illness Initial Comments: 03/27/19 10:23 [id number] with h/o poorly controlled IDDM, PAD with claudication, chronic BLE wounds (sees Dr. Keene, current right toe dry gangrene, left plantar healing ulcer, refusing debridement of wounds, multiple left toe amputations), and HTN who p/w acute on chronic worsened right calf pain worsened this morning abruptly. She additionally notes mid-abdominal pain which is worse than normal for her but also notes she is being treated with antibiotics for a UTI currently. Past History - Past Medical History Allergies/Adverse Reactions: Allergies Allergy/AdvReac Type Severity Reaction Status Date / Time Iodinated Contrast Media Allergy Verified 03/20/19 08:20 [Iodinated Contrast- Oral and IV Dye] Home Medications: Ambulatory Orders Aspirin [ASA -] 81 mg PO DAILY 05/03/17 Basaglar Kwikpen U-100 22 units SQ HS 08/22/18 Insulin Lispro [Admelog] 12 units SQ DAILY 10/25/18 Nitrofurantoin Monohyd/M-Cryst [Macrobid -] 100 mg PO BID #14 capsule 03/20/19 Carvedilol 0 mg PO DAILY 03/27/19 Anemia: Yes Asthma: No Cancer: Yes (uterus cone biopsy freezing) Cardiac Disorders: Yes CVA: Yes (patient thinks she had a stroke in the past) COPD: No CHF: Yes Dementia: No Diabetes: Yes GI Disorders: No Disorders: No HTN: Yes Hypercholesterolemia: Yes Liver Disease: No Seizures: No Thyroid Disease: No - Surgical History Abdominal Surgery: No Appendectomy: No Cardiac Surgery: No Cholecystectomy: No Lung Surgery: No Neurologic Surgery: No Orthopedic Surgery: Yes (amp left great toe,2nd toe, 5th toe) - Immunization History Immunization Up to Date: Yes - Psycho Social/Smoking Cessation Hx Smoking History: Never smoked Have you smoked in the past 12 months: No If you are a former smoker, when did you quit?: 2000 Information on smoking cessation initiated: No Hx Alcohol Use: No Drug/Substance Use Hx: No Substance Use Type: None Hx Substance Use Treatment: No Review of Systems - Review of Systems Able to Perform ROS?: Yes Comments:: 03/27/19 10:38 GEN: no fever, chills, malaise, or generalized weakness HEENT: no ear pain, congestion, sore throat, vision change, or eye pain CV: no chest pain, palpitations, lightheadedness, syncope, or edema RESP: no SOB, wheezing, or cough GI: abdominal pain, no nausea, vomiting, diarrhea, constipation, or rectal bleed : no dysuria, hematuria, or discharge MSK: right calf and ankle pain, foot infections NEURO: no headache, vertigo, numbness, tingling, or focal weakness PSYCH: no SI, HI, or behavior change SKIN: no jaundice, rash, lesions, or unexplained bruises ROS otherwise negative except as noted in HPI *Physical Exam - Vital Signs Last Vital Signs Temp Pulse Resp BP Pulse Ox 97.3 F L 70 20 96/45 L 99 03/27/19 09:47 03/27/19 09:47 03/27/19 09:47 03/27/19 09:47 03/27/19 09:47 - Physical Exam 03/27/19 10:50 GENERAL: uncomfortable-appearing, A/Ox4, moderate distress 2/2 pain, answers questions appropriately HEENT: PERRLA, EOMI, a bit dry NECK/BACK: no midline ttp, no spinal stepoff or deformity, no hematoma, full ROM , neck supple CARDIOVASCULAR: regular rate/rhythm, no MGR, LLE pulse thready but palpable, RLE not palpable or present on Doppler, no edema LUNGS/RESPIRATORY: no respiratory distress, CTAB GI/ABDOMEN: symmetric [id number], normoactive BS, soft, periumbilical ttp, no midline pulsatile masses : no CVA tenderness EXTREMITIES: RLE with hyperpigmentation circumferentially, tenderness to palpation diffusely along RLE calf>anterior aspect SKIN: cold and clammy diffusely, right lower leg and foot are colder than left lower leg and foot, +pallor, no jaundice, gangrene to right foot/toes NEUROLOGICAL: GCS 15, CN II-XII grossly intact, 5/5 strength proximally and distally, no facial droop Heart Score/ECG Review #1 sinus rhythm, rate 71, normal axis and intervals, no ischemic ST-T changes ED Treatment Course - LABORATORY CBC & Chemistry Diagram: 04/01/19 09:30 04/01/19 09:30 - RADIOLOGY Radiology Studies Ordered: Category Date Time Status CHEST X-RAY PORTABLE* [RAD] Stat Radiology 03/27/19 10:11 Ordered Medical Decision Making - Medical Decision Making 04/01/19 22:56 [id number] with PVD, LE ulcerations, toe amputations, p/w RLE pain similar to prior stated vascular occlusion. Initial Vital Signs Temp Pulse Resp BP Pulse Ox 97.3 F L 70 20 96/45 L 99 03/27/19 09:47 03/27/19 09:47 03/27/19 09:47 03/27/19 09:47 03/27/19 09:47 Exam reveals chronic-appearing skin color changes RLE>LLE with distal ulcerations and left toe amputations. RLE DP pulse not palpable or detected on doppler. Most likely this is acute on chronic vascular occlusion, other possibilities cellulitis, osteomyelitis, necrotizing soft tissue infection, neuropathic pain, compartment syndrome, or musculoskeletal injury. The patient requires pre- operative workup as well as CT angiography r/o critical stenosis of LE vasculature. Also getting septic w/u given the patients triage hypotension and known active ulcerations with prior infection to b/l feet. Patient to be admitted. TX ordered: IVF 30 cc/kg, Fentanyl, Benadryl+SoluMedrol for contrast allergy, heparin Laboratory Tests 03/27/19 03/27/19 03/27/19 10:30 10:30 10:30 WBC 15.4 H RBC 3.37 L Hgb 9.1 L Hct 28.2 L MCV 83.8 MCH 27.1 MCHC 32.3 RDW 15.4 Plt Count 440 H MPV 8.7 Absolute Neuts (auto) 12.5 H Neutrophils % 81.0 Lymphocytes % 12.5 Monocytes % 4.9 Eosinophils % 1.1 Basophils % 0.5 Nucleated RBC % 0 PT with INR 11.90 INR 1.01 PTT (Actin FS) 26.8 VBG pH POC VBG pCO2 POC VBG pO2 VBG HCO3 VBG O2 Sat (Ольга) VBG Base Excess Sodium Potassium Chloride Carbon Dioxide Anion Gap BUN Creatinine Est GFR (CKD-EPI)AfAm Est GFR (CKD-EPI)NonAf Random Glucose Lactic Acid Calcium Total Bilirubin AST ALT Alkaline Phosphatase Creatine Kinase CK-MB (CK-2) Troponin I < 0.02 Total Protein Albumin Urine Color Urine Appearance Urine pH Ur Specific [place] Urine Protein Urine Glucose (UA) Urine Ketones Urine Blood Urine Nitrite Urine Bilirubin Urine Urobilinogen Ur Leukocyte Esterase Urine WBC (Auto) Urine RBC (Auto) Urine Casts (Auto) U Epithel Cells (Auto) Urine Bacteria (Auto) Blood Type Antibody Screen 03/27/19 03/27/19 03/27/19 10:30 10:30 10:30 WBC RBC Hgb Hct MCV MCH MCHC RDW Plt Count MPV Absolute Neuts (auto) Neutrophils % Lymphocytes % Monocytes % Eosinophils % Basophils % Nucleated RBC % PT with INR INR PTT (Actin FS) VBG pH POC VBG pCO2 POC VBG pO2 VBG HCO3 VBG O2 Sat (Ольга) VBG Base Excess Sodium 134 L Potassium 4.4 Chloride 98 Carbon Dioxide 26 Anion Gap 10 BUN 23.6 H Creatinine 1.2 Est GFR (CKD-EPI)AfAm 58.10 Est GFR (CKD-EPI)NonAf 50.13 Random Glucose 340 H Lactic Acid 2.4 H* Calcium 8.9 Total Bilirubin 0.3 AST 30 ALT 18 Alkaline Phosphatase 176 H Creatine Kinase 86 CK-MB (CK-2) 1.4 Troponin I Total Protein 7.7 Albumin 2.4 L Urine Color Urine Appearance Urine pH Ur Specific [place] Urine Protein Urine Glucose (UA) Urine Ketones Urine Blood Urine Nitrite Urine Bilirubin Urine Urobilinogen Ur Leukocyte Esterase Urine WBC (Auto) Urine RBC (Auto) Urine Casts (Auto) U Epithel Cells (Auto) Urine Bacteria (Auto) Blood Type O POSITIVE Antibody Screen Negative 03/27/19 03/27/19 10:56 13:45 WBC RBC Hgb Hct MCV MCH MCHC RDW Plt Count MPV Absolute Neuts (auto) Neutrophils % Lymphocytes % Monocytes % Eosinophils % Basophils % Nucleated RBC % PT with INR INR PTT (Actin FS) VBG pH 7.31 POC VBG pCO2 57.6 H POC VBG pO2 < 49 H VBG HCO3 28.4 VBG O2 Sat (Ольга) 15.6 L VBG Base Excess 1.9 Sodium Potassium Chloride Carbon Dioxide Anion Gap BUN Creatinine Est GFR (CKD-EPI)AfAm Est GFR (CKD-EPI)NonAf Random Glucose Lactic Acid Calcium Total Bilirubin AST ALT Alkaline Phosphatase Creatine Kinase CK-MB (CK-2) Troponin I Total Protein Albumin Urine Color Yellow Urine Appearance Clear Urine pH 5.0 Ur Specific [place] 1.039 H Urine Protein 2+ H Urine Glucose (UA) 3+ H Urine Ketones Trace H Urine Blood 1+ H Urine Nitrite Negative Urine Bilirubin Negative Urine Urobilinogen 0.2 Ur Leukocyte Esterase Negative Urine WBC (Auto) 7 Urine RBC (Auto) 3 Urine Casts (Auto) 2 U Epithel Cells (Auto) 1.8 Urine Bacteria (Auto) 3871.6 Blood Type Antibody Screen RAD/CHEST X-RAY PORTABLE* Portable chest: Sepsis A single AP view of the chest reveal an apical lordotic projection with weak inspiration, clear lungs, prominent mediastinum with large heart which is likely due to the degree of inspiration and apical lordotic projection along with sharp angles and left base granuloma. An acute process is not seen. Since 06/04/2019 there is no change of an adverse nature. Correlation recommended. CT/ABDOMEN CTA AOR BLE RUNOFF CT ANGIOGRAM OF THE ABDOMEN AND PELVIS WITH BILATERAL LOWER EXTREMITY RUNOFFS. HISTORY: 58-year-old female with history of PAD presenting with cold right foot TECHNIQUE: Multiaxial CT angiogram of the abdomen and pelvis with bilateral lower extremity runoffs after the intravenous administration of contrast, in the arterial phase, was performed from the distal thoracic aorta through the common femoral arteries into the distal feet. Sagittal and coronal reformats were performed. Axial, sagittal and coronal maximum intensity projection reformats in addition to 3D MIP and 3D volume rendered reformats were performed on a separate dedicated station. Total of 1 25 cc of Omnipaque 350 was administered intravenously. No comparison CT angiogram is available. Correlation is made with CT of the abdomen and pelvis dated March 20, 2019. FINDINGS: VASCULAR: The distal thoracic aorta is normal caliber and widely patent. Mild mural at the scrotum disease seen in the suprarenal aorta resulting in less than 30% stenosis. Moderate mural calcifications and atherosclerotic disease seen in the infrarenal aorta resulting in less than 50% stenosis. RIGHT: Atherosclerotic disease seen in the proximal right common iliac artery resulting in less than 50% stenosis. The right external iliac artery is patent. The right common femoral artery is widely patent. There is moderate to high-grade stenosis at the origin of the right deep femoral artery. SFA stent is seen extending from the proximal SFA to the maximal popliteal artery. Diffuse IntraStent filling defect seen with short segmental occlusions. Short segmental occlusion of the popliteal artery is seen with minimal diminutive flow seen in the patent portion. The right RHETT is patent providing the single flow to the dorsalis pedis artery. There is diminutive flow in the TP trunk proximally and occluded versus attenuated distally. Minimal opacification of the peroneal artery is seen with short segmental occlusions versus attenuation. The HOP WEIGHER is occluded with no flow into the plantar artery. LEFT: Atherosclerotic disease seen in the left common iliac artery resulting in less than 50% stenosis. The left external iliac artery is widely patent. The left common femoral artery is widely patent. The left deep femoral artery and its muscular branches are patent. SFA stent is seen extending from the proximal SFA to the [id number] popliteal artery. Scattered intimal thickening seen in the stent focally resulting in moderate to severe stenosis in the range of 70-90% in the mid aspect of the stent. The left popliteal artery is patent with focal stenosis at the knee joint resulting in 50 -70% stenosis. The left RHETT is patent with flow seen to the dorsalis pedis artery. The left TP trunk is patent with mild disease seen. The left peroneal artery is patent with flow seen to the ankle. The proximal left HOP WEIGHER is patent and occlusion in its mid third likely with reconstitution at its distal aspect with flow seen to the plantar aspect of the foot. ABDOMEN AND PELVIS: There are bilateral posterior dependent lung atelectasis. There is a 6 mm left lower lobe calcified granuloma. The liver, pancreas, gallbladder, biliary tree and adrenal glands are unremarkable. Evaluation of the spleen is limited due to heterogeneous phase of enhancement. The kidneys are symmetrically enhancing. The kidneys are imaged in the cortical phase limiting the evaluation for medullary lesions. There is no hydronephrosis. The urinary bladder is unremarkable. The uterus and both adnexa are unremarkable. Evaluation of the bowel loops is limited due to lack of oral contrast however there is no evidence of abnormal bowel dilatation to suggest bowel obstruction. There is no evidence of pneumoperitoneum , abdominal ascites or enlarged lymph nodes. The visualized bony structures are grossly unremarkable. IMPRESSION: Right femoropopliteal stent with diffuse intimal hyperplasia or endoluminal thrombi resulting in short segmental occlusions with very diminutive flow in the popliteal artery distal to the stent which in turn demonstrates short segmental occlusion. Occluded right HOP WEIGHER and peroneal artery single vessel runoff to the foot via the RHETT and dorsalis pubis artery. Patent left femoropopliteal stent with intimal hyperplasia predominantly resulting in mild to moderate stenosis except focally in the mid stent where there is suggestion of 70-90% stenosis. Patent left popliteal artery with focal 50-70% stenosis at the level of the knee joint. Patent left RHETT and peroneal artery the middle third of the left HOP WEIGHER likely with reconstitution at the level of the ankle with flow seen in the plantar artery. Dr. Patel has spoken with Dr. Jones who is aware of the patient's condition in the ED and agrees with plan for inpatient management. Dr. Patel spoke with inpatient team; in agreement with plan for admission. Decision to admit order has been placed. Discharge - Discharge Information Problems reviewed: Yes Clinical Impression/Diagnosis: PAD (peripheral artery disease) Occlusion of stent of peripheral artery Qualifiers: Encounter type: initial encounter Qualified Code(s): T82.599A - Other mechanical complication of unspecified cardiac and vascular devices and implants , initial encounter Leg pain Qualifiers: Laterality: right Qualified Code(s): M79.604 - Pain in right leg Condition: Guarded - Admission Yes - Follow up/Referral - Patient Discharge Instructions - Post Discharge Activity
[2019-03-27] MEDS ORDERED: methylPREDNISolone NA SUCC 125 MG/2 ML VIAL ONE (10:51)
[2019-03-27] MEDS ORDERED: HEPARIN NA (PORCINE) 5,000 UNITS/ML 1ML VIAL ONE (10:51)
--- NOTE | 2019-03-27 10:52 | PDOC ---
Documentation entered by Julianna Javed SCRIBE, acting as scribe for Deavng Patel MD. Devang Patel MD: This documentation has been prepared by the tanoe, Julianna Javed SCRIBE, under my direction and personally reviewed by me in its entirety. I confirm that the documentation accurately reflects all work, treatment, procedures, and medical decision making performed by me. Attending Attestation - Resident Resident Name: ChanRoma - ED Attending Attestation I have performed the following: I have examined & evaluated the patient, The case was reviewed & discussed with the resident, I agree w/resident's findings & plan, Exceptions are as noted - HPI HPI: 03/27/19 11:12 Patient is a 58 year old female with a significant medical history of poorly controlled IDDM, PAD with claudication, chronic BLE wounds (Follows with Dr. Keene) and HTN PVD with Femoral artery DCP angioplasty, popliteal artery angioplasty, left toe amputations, who presents with acute on chronic right calf pain which worsened this morning suddenly. Patient notes chronic mid- abdominal pain which also worsened. Patient also states that she is currently on antibiotics for a UTI. - Physicial Exam PE: 03/27/19 11:31 Vitals: Triage Vital signs reviewed General Appearance: no acute distress, well nourished well developed, Head: Atraumatic, normocephalic Neck: Supple;No Nuchal rigidity Chest Wall: Nontender Cardiac: Regular rate and rhythm, no murmurs, no rubs, no gallops, Lungs: Clear to auscultation bilateral, good air movement bilaterally, Abdomen: +Diffusely tender lower abdomen. No rebound, no guarding, Soft, nondistended, normal bowel sounds, Rectal: Exam deferred Extremities: +Right lower extremity s/p toe amputations +Unable to doppler pulses at the DP, popliteal, or right femoral. +right lower extremity cool to touch. Full range of motion to all extremities, no cyanosis, clubbing, or edema Skin: Warm and dry, no rashes or lesions, no petechiae Neuro: AOX3; Cranial Nerves 2-12 grossly intact, Strength intact to all extremities, Psych: normal mood, normal affect - Critical Care Time Total Critical Care Time: 55 Critical Care Statement: The care of this patient involved high complexity decision making to prevent further life threatening deterioration of the patient 's condition and/or to evaluate & treat vital organ system(s) failure or risk of failure. - Medical Decision Making 03/27/19 10:50 58 years old with known peripheral vascular disease presents with sudden onset severe right lower extremity pain this morning at 8 AM Patient has IV contrast allergy rash no anaphylaxis Risks and benefits of obtaining a CT with IV contrast discussed with patient given the threat of acute arterial occlusion and loss of limb patient agrees with the need for IV contrast. Will premedicate with Solu-Medrol Benadryl patient consented for IV contrast given the possibility of acute arterial occlusion Dr. Jones vascular surgery has been consulted agrees with the need for CTA with runoff CT at 11:50 AM 03/27/19 14:14 CAT scan demonstrates partial occlusion of the SFA stent on the right leg discussed with Dr. Jones given pain earlier will place patient on heparin drip We will admit to medicine [facility] for vascular consultation plan is possible OR tomorrow or Tuesday
[2019-03-27 10:56] LABS: BASO % 0.5 % (0-2.0); EOS % 1.1 % (0-4.5); HEMATOCRIT 28.2 % (32.4-45.2); HEMOGLOBIN 9.1 GM/dL (10.7-15.3); LYMPH % 12.5 % (8-40); MCH 27.1 pg (25.7-33.7); MCHC 32.3 g/dl (32.0-36.0); MEAN CELL VOLUME 83.8 fl (80-96); MEAN PLT VOLUME 8.7 fl (7.5-11.1); MONO % 4.9 % (3.8-10.2); PLATELET COUNT 440 K/MM3 (134-434); RBC 3.37 M/mm3 (3.60-5.2); RDW 15.4 % (11.6-15.6); WHITE BLOOD COUNT 15.4 K/mm3 (4.0-10.0)
[2019-03-27 11:07] LABS: INR 1.01 (0.83-1.09); PROTHROMBIN TIME (PATIENT) 11.9 SEC (9.7-13.0)
[2019-03-27 11:10] LABS: ACTIVATED PTT 26.8 SECONDS (25.2-36.5)
[2019-03-27 11:33] LABS: ALBUMIN 2.4 g/dl (3.4-5.0); BILIRUBIN,TOTAL 0.3 mg/dL (0.2-1); BLOOD UREA NITROGEN 23.6 mg/dL (7-18); CALCIUM 8.9 mg/dL (8.5-10.1); CREATININE 1.2 mg/dL (0.55-1.3); POTASSIUM 4.4 mmol/L (3.5-5.1); TOT PROT 7.7 g/dl (6.4-8.2)
[2019-03-27 11:39] LABS: VENOUS PC02 57.6 mmHg (38-52); VENOUS PH 7.31 (7.31-7.41)
[2019-03-27 11:40] LABS: VENOUS PO2 < 49 mmHg (28-48)
[2019-03-27] MEDS ORDERED: HEPARIN NA (PORCINE) 5,000 UNITS/ML 1ML VIAL IVPUSH PRN (14:13)
[2019-03-27] MEDS ORDERED: HEPARIN INFUSION - 25,000 UNITS/500 ML INFUS.BAG IVPB ONE (14:27)
[2019-03-27] MEDS: HEPARIN SOD,PORK IN 0.45% NACL 25,000 UNIT/500 ML INFUS.BAG IVPB SCH (14:39)
[2019-03-27 15:21] LABS: EPI CELLS 1.8 /HPF (0-5/HPF); HYALINE CASTS 2 /lpf (0-8); URINE APPEARANCE CLEAR; URINE BACTERIA 3871.6 /hpf (NEGATIVE); URINE BILIRUBIN NEGATIVE (NEGATIVE); URINE COLOR YELLOW; URINE GLUCOSE (UA) 3+ (NEGATIVE); URINE KETONE TRACE (NEGATIVE); URINE LEUK ESTERASE NEGATIVE (NEGATIVE); URINE NITRITE NEGATIVE (NEGATIVE); URINE PROTEIN 2+ (NEGATIVE); URINE RBC 3 /hpf (0-4); URINE UROBILINOGEN 0.2 mg/dL (0.2-1.0); URINE WBC 7 /hpf (0-5)
[2019-03-27] MEDS ORDERED: SODIUM CHLORIDE 0.9% 500 ML INFUS.BAG IV ONE (15:45)
--- NOTE | 2019-03-27 15:49 | HP ---
58 F h/o poorly controlled IDDM, PAD with claudication s/p revascularization, chronic BLE wounds (sees Dr. Keene, current right toe dry gangrene, left plantar healing ulcer, refusing debridement of wounds, multiple left toe amputations), and HTN who p/w acute on chronic worsened right calf pain worsened this morning abruptly. Patient endorses sudden RLE pain, and TTP which is chronic but markedly worsening this morning on waking up. Received Fentanyl in ED w/ marked improvement of RLE pain. Endorses chills but denies fevers, denies CP/SOB/LOC/dizziness.syncope/N/V/D/urinary sx. Follows with Dr. Keene and Dr. Jones. Vascular recommending intervention tomorrow morning to Tuesday for plans to re-vascularize, in the meantime patient started on Heparin drip for R femoral-popliteal stent with some stenosis with some stenosis also in L femoropopliteal region. HOME MEDICATIONS: Home Medications Medication Instructions Recorded Aspirin [ASA -] 81 mg PO DAILY 05/03/17 Basaglar Kwikpen U-100 22 units SQ HS 08/22/18 Insulin Lispro [Admelog] 12 units SQ DAILY 10/25/18 Nitrofurantoin Monohyd/M-Cryst 100 mg PO BID #14 capsule 03/20/19 [Macrobid -] Carvedilol 03/27/19 PHYSICAL EXAMINATION GENERAL: comfortable, A/Ox3, NAD HEENT: PERRLA, EOMI, dry MM NECK/BACK: no midline ttp, no spinal stepoff or deformity, no hematoma, full ROM , neck supple CARDIOVASCULAR: regular rate/rhythm, no MGR, LLE pulse palpable, RLE not palpable or present on Doppler, no edema LUNGS/RESPIRATORY: no respiratory distress, CTAB GI/ABDOMEN: symmetric [id number], normoactive BS, soft, periumbilical ttp, no midline pulsatile masses : no CVA tenderness EXTREMITIES: RLE with hyperpigmentation circumferentially, tenderness to palpation diffusely along RLE calf>anterior aspect SKIN: cold and clammy diffusely, right lower leg and foot are colder than left lower leg and foot, +pallor, no jaundice, gangrene to right foot/toes NEUROLOGICAL: GCS 15, CN II-XII grossly intact, 5/5 strength proximally and distally, no facial droop Vital Signs - 24 hr 03/27/19 03/27/19 03/27/19 09:47 11:06 11:13 Temperature 97.3 F L 98.3 F Pulse Rate 70 Pulse Rate [ 77 Right Radial] Respiratory 20 16 Rate Blood Pressure 96/45 L Blood Pressure 164/81 [Right Arm] O2 Sat by Pulse 99 96 Oximetry (%) 03/27/19 13:58 Temperature Pulse Rate Pulse Rate [ 75 Right Radial] Respiratory 20 Rate Blood Pressure Blood Pressure 161/63 [Right Arm] O2 Sat by Pulse 100 Oximetry (%) Laboratory Results - last 24 hr 03/27/19 03/27/19 03/27/19 10:30 10:30 10:30 WBC 15.4 H RBC 3.37 L Hgb 9.1 L Hct 28.2 L MCV 83.8 MCH 27.1 MCHC 32.3 RDW 15.4 Plt Count 440 H MPV 8.7 Absolute Neuts (auto) 12.5 H Neutrophils % 81.0 Lymphocytes % 12.5 Monocytes % 4.9 Eosinophils % 1.1 Basophils % 0.5 Nucleated RBC % 0 PT with INR 11.90 INR 1.01 PTT (Actin FS) 26.8 VBG pH POC VBG pCO2 POC VBG pO2 VBG HCO3 VBG O2 Sat (Ольга) VBG Base Excess Sodium Potassium Chloride Carbon Dioxide Anion Gap BUN Creatinine Est GFR (CKD-EPI)AfAm Est GFR (CKD-EPI)NonAf Random Glucose Lactic Acid Calcium Total Bilirubin AST ALT Alkaline Phosphatase Creatine Kinase CK-MB (CK-2) Troponin I < 0.02 Total Protein Albumin Urine Color Urine Appearance Urine pH Ur Specific Gloster Urine Protein Urine Glucose (UA) Urine Ketones Urine Blood Urine Nitrite Urine Bilirubin Urine Urobilinogen Ur Leukocyte Esterase Urine WBC (Auto) Urine RBC (Auto) Urine Casts (Auto) U Epithel Cells (Auto) Urine Bacteria (Auto) Blood Type Antibody Screen 03/27/19 03/27/19 03/27/19 10:30 10:30 10:30 WBC RBC Hgb Hct MCV MCH MCHC RDW Plt Count MPV Absolute Neuts (auto) Neutrophils % Lymphocytes % Monocytes % Eosinophils % Basophils % Nucleated RBC % PT with INR INR PTT (Actin FS) VBG pH POC VBG pCO2 POC VBG pO2 VBG HCO3 VBG O2 Sat (Ольга) VBG Base Excess Sodium 134 L Potassium 4.4 Chloride 98 Carbon Dioxide 26 Anion Gap 10 BUN 23.6 H Creatinine 1.2 Est GFR (CKD-EPI)AfAm 58.10 Est GFR (CKD-EPI)NonAf 50.13 Random Glucose 340 H Lactic Acid 2.4 H* Calcium 8.9 Total Bilirubin 0.3 AST 30 ALT 18 Alkaline Phosphatase 176 H Creatine Kinase 86 CK-MB (CK-2) 1.4 Troponin I Total Protein 7.7 Albumin 2.4 L Urine Color Urine Appearance Urine pH Ur Specific Gloster Urine Protein Urine Glucose (UA) Urine Ketones Urine Blood Urine Nitrite Urine Bilirubin Urine Urobilinogen Ur Leukocyte Esterase Urine WBC (Auto) Urine RBC (Auto) Urine Casts (Auto) U Epithel Cells (Auto) Urine Bacteria (Auto) Blood Type O POSITIVE Antibody Screen Negative 03/27/19 03/27/19 10:56 13:45 WBC RBC Hgb Hct MCV MCH MCHC RDW Plt Count MPV Absolute Neuts (auto) Neutrophils % Lymphocytes % Monocytes % Eosinophils % Basophils % Nucleated RBC % PT with INR INR PTT (Actin FS) VBG pH 7.31 POC VBG pCO2 57.6 H POC VBG pO2 < 49 H VBG HCO3 28.4 VBG O2 Sat (Ольга) 15.6 L VBG Base Excess 1.9 Sodium Potassium Chloride Carbon Dioxide Anion Gap BUN Creatinine Est GFR (CKD-EPI)AfAm Est GFR (CKD-EPI)NonAf Random Glucose Lactic Acid Calcium Total Bilirubin AST ALT Alkaline Phosphatase Creatine Kinase CK-MB (CK-2) Troponin I Total Protein Albumin Urine Color Yellow Urine Appearance Clear Urine pH 5.0 Ur Specific Gloster 1.039 H Urine Protein 2+ H Urine Glucose (UA) 3+ H Urine Ketones Trace H Urine Blood 1+ H Urine Nitrite Negative Urine Bilirubin Negative Urine Urobilinogen 0.2 Ur Leukocyte Esterase Negative Urine WBC (Auto) 7 Urine RBC (Auto) 3 Urine Casts (Auto) 2 U Epithel Cells (Auto) 1.8 Urine Bacteria (Auto) 3871.6 Blood Type Antibody Screen Home Medications Medication Instructions Recorded Aspirin [ASA -] 81 mg PO DAILY 05/03/17 Basaglar Kwikpen U-100 22 units SQ HS 08/22/18 Insulin Lispro [Admelog] 12 units SQ DAILY 10/25/18 Nitrofurantoin Monohyd/M-Cryst 100 mg PO BID #14 capsule 03/20/19 [Macrobid -] Carvedilol 03/27/19 ASSESSMENT/PLAN: 58 F h/o poorly controlled IDDM, PAD with claudication s/p revascularization, chronic BLE wounds (sees Dr. Keene, current right toe dry gangrene, left plantar healing ulcer, refusing debridement of wounds, multiple left toe amputations), and HTN admitted for R femoropopiliteal stenosis. RLE femoropopiliteal stenosis Cont. Heparin drip with monitoring of PTT, Atorvastatin 80mg, strict glycemic control with basal and sliding scale coverage Vascular consult: Dr Jones, possible for intervention in AM for re- vascularization Uncontrolled IDDM restart basal insulin and ISS supplement with premeal insulin for strict glycemic control DM diet HTN restart home BP meds Na controlled diet DASH diet DVT ppx: Heparin drip Med- surg Visit type - Emergency Visit Emergency Visit: Yes ED Registration Date: 03/27/19 Care time: The patient presented to the Emergency Department on the above date and was hospitalized for further evaluation of their emergent condition. - New Patient This patient is new to me today: Yes Date on this admission: 03/27/19 - Critical Care Critical Care patient: No
[2019-03-27] MEDS ORDERED: PIPERACILLIN/TAZOB 3.375 GM 3.375 GM in DEXTROSE 5%-WATER - 50 ML IVPB SCH (16:00)
[2019-03-27] MEDS ORDERED: ALBUTEROL SO4 2.5/IPRATROPIUM 0.5 INH SOL 3 ML VIAL.NEB. NEB ONE (16:06)
[2019-03-27] MEDS ORDERED: PIPERACILLIN/TAZOB 3.375 GM 3.375 GM/50 ML BAG IVPB ONE (16:22)
[2019-03-27 17:23] LABS: CHOLESTEROL 231 mg/dL (50-200); HDL CHOLESTEROL 51 mg/dL (40-60); LDL CHOLESTEROL (ONLY SJRH) 145 mg/dL (5-100); TRIGLYCERIDES 172 mg/dL (0-150)
[2019-03-27] MEDS: PIPERACILLIN/TAZOB 3.375 GM 3.375 GM in DEXTROSE 5%-WATER - 50 ML IVPB SCH ×2 (18:05→21:24)
[2019-03-27] MEDS ORDERED: INSULIN (NOVOLOG) ASPART 100 UNITS/ML 10ML VIAL ONE (18:29)
[2019-03-27] MEDS: INSULIN SLIDING SCALE (NOVOLOG) 1 VIAL SQ SCH ×2 (18:32→21:29)
--- NOTE | 2019-03-27 19:32 | PN ---
Progress Note (short form) - Note Progress Note: Vascular Surgery Pt seen and examined. Comes in with cramping and pain in right leg. Pt found to be hypotensive in ER. Then got better. CTA done shows segmental occlusion in right SFA stent. Cont IV heparin for now. Right foot is warm. Pt has dry gangrene of toes. Will do angiogram on . Will then stop heparin and just keep plavix. Gen Jones DO
[2019-03-27] MEDS ORDERED: ACETAMINOPHEN 1000 MG/100 ML VIAL (NON FORMULARY) IVPB ONE (19:35)
[2019-03-27] MEDS ORDERED: PIPERACILLIN/TAZOBACTAM 3.375 GM VIAL IVPB ONE (21:14)
[2019-03-27] MEDS ORDERED: DEXTROSE 5%-WATER - 50 ML IVPB ONE (21:14)
[2019-03-27] MEDS: ATORVASTATIN CA 80 MG TABLET (FP) PO SCH (21:22)
[2019-03-27] MEDS: INSULIN (LEVEMIR) 100 UNITS/ML UNITS SQ SCH (21:30)
[2019-03-28] MEDS ORDERED: PIPERACILLIN/TAZOBACTAM 3.375 GM VIAL IVPB ONE ×2 (02:27→08:16)
[2019-03-28] MEDS ORDERED: DEXTROSE 5%-WATER - 50 ML IVPB ONE ×2 (02:28→08:17)
[2019-03-28] MEDS: PIPERACILLIN/TAZOB 3.375 GM 3.375 GM in DEXTROSE 5%-WATER - 50 ML IVPB SCH ×2 (02:36→10:49)
[2019-03-28] MEDS ORDERED: ACETAMINOPHEN 1000 MG/100 ML VIAL (NON FORMULARY) IVPB ONE (05:04)
[2019-03-28] MEDS: HEPARIN NA (PORCINE) 5,000 UNITS/ML 1ML VIAL IVPUSH PRN ×2 (05:43→18:42)
[2019-03-28] MEDS: INSULIN (LEVEMIR) 100 UNITS/ML UNITS SQ SCH ×2 (07:06→21:36)
[2019-03-28] MEDS: INSULIN SLIDING SCALE (NOVOLOG) 1 VIAL SQ SCH ×4 (07:08→21:37)
--- NOTE | 2019-03-28 07:34 | PN ---
Progress Note, Physician Chief Complaint: c/o pain in LE R>L and swelling in hands BL History of Present Illness: 58 F h/o poorly controlled IDDM, PAD with claudication s/p revascularization, chronic BLE wounds (sees Dr. Keene, current right toe dry gangrene, left plantar healing ulcer x 2, refusing debridement of wounds, multiple left toe amputations), and HTN admitted for R fem-pop stenosis with planned re- vascularization in am - Current Medication List Current Medications: Active Medications Aspirin (Ecotrin -) 81 mg PO DAILY [facility] Atorvastatin Calcium (Lipitor -) 80 mg PO HS [facility] Last Admin: 03/27/19 21:22 Dose: 80 mg Heparin Sodium (Porcine) (Heparin -) 1,000 unit IVPUSH PRN PRN PRN Reason: Heparin Last Admin: 03/27/19 22:17 Dose: 1,000 unit Heparin Sodium (Porcine) (Heparin -) 5,000 unit IVPUSH PRN PRN PRN Reason: Heparin Last Admin: 03/28/19 05:43 Dose: 5,000 unit HEPARIN SOD,PORK IN 0.45% NACL (Heparin-1/2ns 25,000 Units/500) 25,000 unit in 500 mls @ 16 mls/hr IVPB TITR [facility]; Protocol Last Admin: 03/27/19 14:39 Dose: 800 units/hr, 16 mls/hr Piperacillin Sod/Tazobactam (Sod 3.375 gm/ Dextrose) 50 mls @ 100 mls/hr IVPB Q8H-IV [facility]; Protocol Last Admin: 03/27/19 16:32 Dose: 100 mls/hr Piperacillin Sod/Tazobactam (Sod 3.375 gm/ Dextrose) 50 mls @ 100 mls/hr IVPB Q8H-IV [facility]; Protocol Stop: 03/28/19 10:29 Last Admin: 03/28/19 02:36 Dose: 100 mls/hr Insulin Aspart (Novolog Vial Sliding Scale -) 1 vial SQ ACHS [facility]; Protocol Last Admin: 03/28/19 07:08 Dose: 8 unit Insulin Detemir (Levemir Vial) 10 units SQ BID@0700,2200 [facility] Last Admin: 03/28/19 07:06 Dose: 10 units Losartan Potassium (Cozaar -) 25 mg PO DAILY [facility] - Objective Vital Signs: Vital Signs Temperature 98.2 F 03/28/19 06:37 Pulse Rate 94 H 03/28/19 06:37 Respiratory Rate 20 03/28/19 06:37 Blood Pressure 144/62 03/28/19 06:37 O2 Sat by Pulse Oximetry (%) 98 03/27/19 18:31 Constitutional: Yes: Well Nourished, No Distress, Calm Eyes: Yes: WNL, Conjunctiva Clear HENT: Yes: WNL, Atraumatic, Normocephalic Neck: Yes: WNL, Supple, Trachea Midline Cardiovascular: Yes: WNL, Regular Rate and Rhythm Respiratory: Yes: WNL, Regular, CTA Bilaterally Gastrointestinal: Yes: WNL, Normal Bowel Sounds ...Rectal Exam: Yes: Deferred Genitourinary: Yes: WNL Breast(s): Yes: WNL Musculoskeletal: Yes: WNL Extremities: Yes: Amputation (multiple toe amputations to left foot), Cool ( Unable to doppler pulses at the DP, popliteal, or right femoral. Right foot extremity cool to touch.) Edema: No Peripheral Pulses WNL: No Peripheral Pulses: Left Radial: 2+, Right Radial: 2+, Left Doralis Pedis: 0, Right Dorsalis Pedis: 0, Left Femoral: 0, Right Femoral: 0 Integumentary: Yes: Venous Stasis Changes (to LE BL with multiple toe amputations to left) Neurological: Yes: WNL, Alert, Oriented ...Motor Strength: LLE, RLE Psychiatric: Yes: WNL Additional Findings/Remarks: -pt stated hands are swollen, none noted Labs: CBC, BMP 03/27/19 10:30 03/27/19 10:30 INR, PTT INR 1.01 (0.83-1.09) 03/27/19 10:30 - ....Imaging Other: Report Reviewed (CTA: right fem-pop stent with thrombi resulting in segmental occulusion. Occl right AUTO TIRE RECAPPER and perotenal artery to foot. Left fem-pop 50-70% occl above level of knee) Problem List - Problems (1) Prophylactic measure Assessment/Plan: FEN Fluids: adequate PO intake, NPO past MN for OR Electrolytes: monitor & replete as needed Nutrition: diabetic diet DVT moderate risk heparin gtt as per protocol Dispo Maintain as inpatient full code discharge planning Code(s): Z29.9 - ENCOUNTER FOR PROPHYLACTIC MEASURES, UNSPECIFIED (2) Wound of lower extremity Assessment/Plan: vascular following planned re-vasculization of LE tmrw follows with Dr Rodriguez in wound clinic afebrile, WBC 15 could be reactive, rec'd steroids in Ed c/w zosyn ID consulted Code(s): S81.809A - UNSPECIFIED OPEN WOUND, UNSPECIFIED LOWER LEG, INIT ENCNTR (3) IDDM (insulin dependent diabetes mellitus) Assessment/Plan: HgbA1C 10.8 BGM 300-400s BGM q AC/HS with novolog sliding scale c/w levemir, will increase to 15u bid diabetic diet, NPO past MN Code(s): E11.9 - TYPE 2 DIABETES MELLITUS WITHOUT COMPLICATIONS; Z79.4 - LONGTERM (CURRENT) USE OF INSULIN (4) HTN (hypertension) Assessment/Plan: normotensive c/w cozaar Code(s): I10 - ESSENTIAL (PRIMARY) HYPERTENSION Qualifiers: Hypertension type: essential hypertension Qualified Code(s): I10 - Essential (primary) hypertension (5) PAD (peripheral artery disease) Assessment/Plan: Dr Jones following re-vasculization planned for am c/w heparin as per protocol Code(s): I73.9 - PERIPHERAL VASCULAR DISEASE, UNSPECIFIED (6) Leukocytosis Assessment/Plan: afebrile, wbc 15 may be reactive to steroids given in ED BCx pending Ucx with LFNB c/w zosyn ID to see pt Code(s): D72.829 - ELEVATED WHITE BLOOD CELL COUNT, UNSPECIFIED Visit type - Emergency Visit Emergency Visit: Yes ED Registration Date: 03/27/19 Care time: The patient presented to the Emergency Department on the above date and was hospitalized for further evaluation of their emergent condition. - New Patient This patient is new to me today: Yes Date on this admission: 03/28/19 - Critical Care Critical Care patient: No - Discharge Referral Referred to [facility] Med P.C.: No
[2019-03-28] MEDS ORDERED: LIDOCAINE 1%-EPI 1:100,000 30 ML MDV IJ ONE (09:24)
--- NOTE | 2019-03-28 10:44 | EKG ---
Test Reason : Blood Pressure : / mmHG Vent. Rate : 071 BPM Atrial Rate : 071 BPM P-R Int : 130 ms QRS Dur : 068 ms QT Int : 420 ms P-R-T Axes : 000 008 031 degrees QTc Int : 456 ms NORMAL SINUS RHYTHM NORMAL ECG WHEN COMPARED WITH ECG OF 20-MAR-2019 08:46, NO SIGNIFICANT CHANGE WAS FOUND Confirmed by Gildardo Gamboa MD ([id number]) on 03/28/2019 10:43:46 AM Referred By: Confirmed By:Gildardo Gamboa MD
[2019-03-28] MEDS: ASPIRIN COATED 81 MG TABLET.EC PO SCH (10:48)
[2019-03-28] MEDS: LOSARTAN POTASSIUM 25 MG TABLET PO SCH (10:48)
[2019-03-28 10:58] LABS: ALBUMIN 1.9 g/dl (3.4-5.0); BILIRUBIN,TOTAL 0.1 mg/dL (0.2-1); BLOOD UREA NITROGEN 28.9 mg/dL (7-18); CALCIUM 8.3 mg/dL (8.5-10.1); CREATININE 1.1 mg/dL (0.55-1.3); MAGNESIUM 2.6 mg/dL (1.8-2.4); PHOSPHOROUS 3.3 mg/dL (2.5-4.9); TOT PROT 6.7 g/dl (6.4-8.2)
[2019-03-28 11:06] LABS: POTASSIUM 4.2 mmol/L (3.5-5.1)
[2019-03-28] MEDS ORDERED: INSULIN (NOVOLOG) ASPART 100 UNITS/ML 10ML VIAL ONE ×2 (12:01→16:52)
--- NOTE | 2019-03-28 12:20 | SPA.PREOP ---
- PRE-OP NOTE Dx: RLE leg pain Planned Procedure: RLE angio/possible angioplasty Surgeon: Dr. Jones Last Vital Signs Temp Pulse Resp BP Pulse Ox 98.2 F 94 H 20 144/62 98 03/28/19 06:37 03/28/19 06:37 03/28/19 06:37 03/28/19 06:37 03/27/19 18:31 Lab Results WBC 15.4 K/mm3 (4.0-10.0) H 03/27/19 10:30 RBC 3.37 M/mm3 (3.60-5.2) L 03/27/19 10:30 Hgb 9.1 GM/dL (10.7-15.3) L 03/27/19 10:30 Hct 28.2 % (32.4-45.2) L 03/27/19 10:30 MCV 83.8 fl (80-96) 03/27/19 10:30 MCHC 32.3 g/dl (32.0-36.0) 03/27/19 10:30 RDW 15.4 % (11.6-15.6) 03/27/19 10:30 Plt Count 440 K/MM3 (134-434) H 03/27/19 10:30 Sodium 143 mmol/L (136-145) 03/28/19 08:23 Potassium 4.2 mmol/L (3.5-5.1) 03/28/19 08:23 Chloride 112 mmol/L (98-107) H 03/28/19 08:23 Carbon Dioxide 22 mmol/L (21-32) 03/28/19 08:23 Anion Gap MMOL/L (8-16) 03/28/19 08:23 BUN 28.9 mg/dL (7-18) H 03/28/19 08:23 Creatinine 1.1 mg/dL (0.55-1.3) 03/28/19 08:23 Random Glucose 311 mg/dL (74-106) H 03/28/19 08:23 Calcium 8.3 mg/dL (8.5-10.1) L 03/28/19 08:23 Blood Type O POSITIVE 03/27/19 10:30 Antibody Screen Negative 03/27/19 10:30 INR 1.01 (0.83-1.09) 03/27/19 10:30 Microbiology Laboratory Tests 03/28/19 08:23 PTT (Actin FS) 129.5 H - ASSESSMENT/PLAN 1. Make NPO after breakfast except po meds 2. GI/DVT PPX 3. Medical optimization / clearance 4. Consent to be obtained by surgeon after risks, benefits and alternatives discussed with patient and or Health Care Proxy. 5. Hold IV heparin at 12 D/w Dr. Jones
--- NOTE | 2019-03-28 15:30 | PN ---
Progress Note (short form) - Note Progress Note: ID consult dictated imp/reccd 58 yo female with IDDM, PAD came to ER with right leg pain with radiation to her abdomen she was seen last week in the ER and prescribed macrobid for UTI-has taken 5 days she reports she ran out of pain meds at home she reports she still has some dysuria no fevers RLE changes are ischemic with dry gangrene of her toes foot is cool left foot is warm , plantar ulcers are clean will switch to ertapenem to complete treatment for UTI continue contact isolation vascular w/u per dr kang Problem List - Problems (1) Gangrene of right foot Code(s): I96 - GANGRENE, NOT ELSEWHERE CLASSIFIED (2) Ischemic foot pain at rest Code(s): I73.9 - PERIPHERAL VASCULAR DISEASE, UNSPECIFIED (3) UTI (urinary tract infection) Code(s): N39.0 - URINARY TRACT INFECTION, SITE NOT SPECIFIED (4) ESBL E. coli carrier Code(s): Z22.39 - CARRIER OF OTHER SPECIFIED BACTERIAL DISEASES
[2019-03-28] MEDS: ERTAPENEM SODIUM 1 GM in SODIUM CHLORIDE 50 ML IVPB SCH (17:37)
[2019-03-28] MEDS: HEPARIN SOD,PORK IN 0.45% NACL 25,000 UNIT/500 ML INFUS.BAG IVPB SCH (17:37)
--- NOTE | 2019-03-28 17:56 | CONS ---
DATE OF CONSULTATION: DATE OF DICTATION: 03/28/2019 INFECTIOUS DISEASE CONSULTATION REQUESTING PHYSICIAN: Hospitalist Service. CONSULTING PHYSICIAN: She Mcclain MD. HISTORY OF PRESENT ILLNESS: This is a 58-year-old female, past medical history of insulin dependent diabetes, poorly controlled. Hemoglobin A1c is 10.8. She has a history of peripheral arterial disease. She is status post a graft in her left leg, and she has had her right leg stented. She has had multiple amputations of her toes: the left foot 3 toes, the right foot 1 toe. 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 She comes to the ER with complaints of severe right lower extremity pain radiating up to her abdomen. She ran out of her pain medications. She denies any fevers or chills. She was seen in the ER on the , at which time she was diagnosed with a UTI. She was called and placed on Macrobid when her urine grew an E. coli ESBL. She noted dysuria at that time, which she reports is not completely resolved but improved. She now comes in for her feet. ALLERGIES: She is allergic to IODINE. PAST MEDICAL HISTORY: Notable for poorly controlled diabetes, peripheral arterial disease, chronic leg wounds, followed in wound care, but she has refused debridement of the wounds in wound care. PAST SURGICAL HISTORY: Surgical history as previously stated. MEDICATION: Her medications at home include: 1. Aspirin. 2. Insulin. 3. The recent Macrobid. 4. Coreg. She was given Solu-Medrol in order to have a CTA of her aorta with runoff that revealed she has an occlusion of he right SFA stent, and she is scheduled for angiogram on . She is currently on IV heparin. SOCIAL HISTORY: She lives alone at home. She is a never smoker. REVIEW OF SYSTEMS: Notable for residual dysuria. She has no fevers or chills. PHYSICAL EXAMINATION: General: She is awake and alert. Vital Signs: Temperature is 98, pulse 82, blood pressure 139/56. She has been afebrile since admission. Her respiratory rate is 20. HEENT: Normocephalic. Eyes are anicteric. Neck: Supple. Lungs: Clear to auscultation. Heart: Regular rate and rhythm. Abdomen: Soft, nontender. Extremities: Her left foot has a good dorsalis pedis pulse. She has 2 chronic plantar ulcers that are clean on that foot. There is no erythema. The right foot is ischemic, cool to touch. She has 2 toes with dry gangrene, and she has no palpable pulse. LABORATORY: Her labs are notable for a white count of 15.4, hemoglobin 9.1, platelets of 440. Her BUN and creatinine are 28 and 1.1. Urinalysis has 7 white cells. Urine culture is growing gram-negative. Blood cultures are negative. IMPRESSION: In summary, this is a 58-year-old woman with severe peripheral arterial changes. Her right lower extremity changes are ischemic with dry gangrene of her foot. She has no signs of any foot infection. I would switch her to ertapenem to complete treatment for her Escherichia coli extended-spectrum beta-lactamases urinary tract infection and would maintain contact isolation, vascular workup per Dr. Jones. SHE MCCLAIN M.D. [id number]
[2019-03-28] MEDS: ATORVASTATIN CA 80 MG TABLET (FP) PO SCH (21:33)
[2019-03-29] MEDS ORDERED: ACETAMINOPHEN 1000 MG/100 ML VIAL (NON FORMULARY) IVPB ONE (00:20)
[2019-03-29] MEDS: INSULIN (LEVEMIR) 100 UNITS/ML UNITS SQ SCH ×2 (06:21→21:47)
[2019-03-29] MEDS: INSULIN SLIDING SCALE (NOVOLOG) 1 VIAL SQ SCH ×4 (06:22→21:48)
--- NOTE | 2019-03-29 08:00 | PN ---
Progress Note, Physician Chief Complaint: Pain in foot remains. Awaiting OR for angio/revasculariztion History of Present Illness: 58 F h/o poorly controlled IDDM, PAD with claudication s/p revascularization, chronic BLE wounds (sees Dr. Keene, current right toe dry gangrene, left plantar healing ulcer x 2, refusing debridement of wounds, multiple left toe amputations), and HTN admitted for R fem-pop stenosis with planned re- vascularization in am - Current Medication List Current Medications: Active Medications Aspirin (Ecotrin -) 81 mg PO DAILY [facility] Last Admin: 03/28/19 10:48 Dose: 81 mg Atorvastatin Calcium (Lipitor -) 80 mg PO HS [facility] Last Admin: 03/28/19 21:33 Dose: 80 mg Heparin Sodium (Porcine) (Heparin -) 1,000 unit IVPUSH PRN PRN PRN Reason: Heparin Last Admin: 03/27/19 22:17 Dose: 1,000 unit Heparin Sodium (Porcine) (Heparin -) 5,000 unit IVPUSH PRN PRN PRN Reason: Heparin Last Admin: 03/28/19 18:42 Dose: 5,000 unit HEPARIN SOD,PORK IN 0.45% NACL (Heparin-1/2ns 25,000 Units/500) 25,000 unit in 500 mls @ 16 mls/hr IVPB TITR [facility]; Protocol Stop: 03/29/19 14:00 Last Titration: 03/29/19 04:37 Dose: 600 units/hr, 12 mls/hr Ertapenem 1 gm/ Sodium (Chloride) 50 mls @ 100 mls/hr IVPB DAILY [facility] Last Admin: 03/28/19 17:37 Dose: 100 mls/hr Insulin Aspart (Novolog Vial Sliding Scale -) 1 vial SQ ACHS [facility]; Protocol Last Admin: 03/29/19 06:22 Dose: Not Given Insulin Detemir (Levemir Vial) 15 units SQ BID@0700,2200 [facility] Last Admin: 03/29/19 06:21 Dose: 15 units Losartan Potassium (Cozaar -) 25 mg PO DAILY [facility] Last Admin: 03/28/19 10:48 Dose: 25 mg - Objective Vital Signs: Vital Signs Temperature 98.6 F 03/29/19 06:09 Pulse Rate 82 03/29/19 06:09 Respiratory Rate 20 03/29/19 06:09 Blood Pressure 157/83 03/29/19 06:09 O2 Sat by Pulse Oximetry (%) 98 03/27/19 18:31 Additional Findings/Remarks: Constitutional: Yes: Well Nourished, No Distress, Calm Eyes: Yes: WNL, Conjunctiva Clear HENT: Yes: WNL, Atraumatic, Normocephalic Neck: Yes: WNL, Supple, Trachea Midline Cardiovascular: Yes: WNL, Regular Rate and Rhythm Respiratory: Yes: WNL, Regular, CTA Bilaterally Gastrointestinal: Yes: WNL, Normal Bowel Sounds ...Rectal Exam: Yes: Deferred Genitourinary: Yes: WNL Breast(s): Yes: WNL Musculoskeletal: Yes: WNL Extremities: Yes: Amputation (multiple toe amputations to left foot), Cool ( Unable to doppler pulses at the DP, popliteal, or right femoral. Right foot extremity cool to touch.) Edema: No Peripheral Pulses WNL: No Peripheral Pulses: Left Radial: 2+, Right Radial: 2+, Left Doralis Pedis: 0, Right Dorsalis Pedis: 0, Left Femoral: 0, Right Femoral: 0 Integumentary: Yes: Venous Stasis Changes (to LE BL with multiple toe amputations to left) Neurological: Yes: WNL, Alert, Oriented ...Motor Strength: LLE, RLE Psychiatric: Yes: WNL Labs: CBC, BMP 03/27/19 10:30 03/28/19 08:23 INR, PTT INR 1.01 (0.83-1.09) 03/27/19 10:30 Problem List - Problems (1) Prophylactic measure Assessment/Plan: FEN Fluids: adequate PO intake, NPO past MN for OR Electrolytes: monitor & replete as needed Nutrition:NPO for OR DVT moderate risk heparin gtt as per protocol Dispo Maintain as inpatient full code discharge planning Code(s): Z29.9 - ENCOUNTER FOR PROPHYLACTIC MEASURES, UNSPECIFIED (2) Wound of lower extremity Assessment/Plan: planned re-vasculization/angio today with Dr Kang follows with Dr Rodriguez in wound clinic c/w zosyn ID following Code(s): S81.809A - UNSPECIFIED OPEN WOUND, UNSPECIFIED LOWER LEG, INIT ENCNTR (3) IDDM (insulin dependent diabetes mellitus) Assessment/Plan: HgbA1C 10.8 BGM better controlled with addition of higher dose levemir BGM q AC/HS with novolog sliding scale c/w levemir diabetic diet, after OR Code(s): E11.9 - TYPE 2 DIABETES MELLITUS WITHOUT COMPLICATIONS; 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 (4) HTN (hypertension) Assessment/Plan: normotensive c/w cozaar Code(s): I10 - ESSENTIAL (PRIMARY) HYPERTENSION Qualifiers: Hypertension type: essential hypertension Qualified Code(s): I10 - Essential (primary) hypertension (5) PAD (peripheral artery disease) Assessment/Plan: re-vasculization today c/w heparin as per protocol until OR then plavix as per Dr kang Code(s): I73.9 - PERIPHERAL VASCULAR DISEASE, UNSPECIFIED (6) Leukocytosis Assessment/Plan: afebrile, wbc 12.3 may be reactive to steroids given in ED BCx ngtd Ucx with klebsiella c/w ertapenem ID following Code(s): D72.829 - ELEVATED WHITE BLOOD CELL COUNT, UNSPECIFIED Visit type - Emergency Visit Emergency Visit: Yes ED Registration Date: 03/27/19 Care time: The patient presented to the Emergency Department on the above date and was hospitalized for further evaluation of their emergent condition. - New Patient This patient is new to me today: No - Critical Care Critical Care patient: No - Discharge Referral Referred to [facility] Med P.C.: No
[2019-03-29 09:12] LABS: HEMATOCRIT 23.6 % (32.4-45.2); HEMOGLOBIN 7.6 GM/dL (10.7-15.3); MCH 26.8 pg (25.7-33.7); MCHC 32.3 g/dl (32.0-36.0); MEAN CELL VOLUME 82.9 fl (80-96); MEAN PLT VOLUME 8.5 fl (7.5-11.1); PLATELET COUNT 315 K/MM3 (134-434); RBC 2.84 M/mm3 (3.60-5.2); RDW 15.3 % (11.6-15.6); WHITE BLOOD COUNT 12.3 K/mm3 (4.0-10.0)
[2019-03-29 09:52] LABS: ALBUMIN 1.9 g/dl (3.4-5.0); BILIRUBIN,TOTAL 0.1 mg/dL (0.2-1); BLOOD UREA NITROGEN 27.6 mg/dL (7-18); CALCIUM 8.5 mg/dL (8.5-10.1); CREATININE 0.8 mg/dL (0.55-1.3); MAGNESIUM 2.5 mg/dL (1.8-2.4); POTASSIUM 3.9 mmol/L (3.5-5.1); TOT PROT 6.2 g/dl (6.4-8.2)
[2019-03-29] MEDS: ERTAPENEM SODIUM 1 GM in SODIUM CHLORIDE 50 ML IVPB SCH (10:09)
[2019-03-29] MEDS: LOSARTAN POTASSIUM 25 MG TABLET PO SCH (10:10)
[2019-03-29] MEDS: HEPARIN NA (PORCINE) 5,000 UNITS/ML 1ML VIAL IVPUSH PRN (10:10)
[2019-03-29] MEDS: ASPIRIN COATED 81 MG TABLET.EC PO SCH (10:44)
[2019-03-29] MEDS ORDERED: LIDOCAINE HCL 1%, 10 MG/ML (20ML VIAL) ONE (10:57)
[2019-03-29] MEDS ORDERED: HEPARIN NA (PORCINE) 5,000 UNITS/ML 1ML VIAL ONE ×2 (10:57→12:41)
[2019-03-29] MEDS ORDERED: MIDAZOLAM HCL 2 MG/2 ML SINGLE DOSE VIAL ONE ×2 (11:25)
[2019-03-29] MEDS ORDERED: methylPREDNISolone NA SUCC 125 MG/2 ML VIAL ONE (12:36)
[2019-03-29] MEDS ORDERED: PROTAMINE SULFATE 50 MG/5 ML VIAL ONE (13:02)
[2019-03-29] MEDS ORDERED: CLOPIDOGREL BISULFATE 75 MG TABLET (FP) ONE (13:45)
--- NOTE | 2019-03-29 13:51 | OP ---
Operative Note - Note: Operative Date: 03/29/19 Pre-Operative Diagnosis: Right foot gangrene Operation: Aortogram, RLE angiogram, SFA angioplasty Findings: Instent stenosis Post-Operative Diagnosis: Same as Pre-op Surgeon: Gen Jones Anesthesia: Fractional Estimated Blood Loss (mls): 50 Operative Report Dictated: Yes
[2019-03-29] MEDS: CLOPIDOGREL BISULFATE 75 MG TABLET (FP) PO SCH (14:00)
[2019-03-29] MEDS ORDERED: oxyCODONE HCL 5 MG TABLET PO PRN (15:46)
[2019-03-29] MEDS: oxyCODONE HCL 5 MG TABLET PO PRN ×2 (16:11→21:43)
[2019-03-29] MEDS ORDERED: ONDANSETRON 4 MG/2 ML VIAL IVPUSH PRN (17:03)
[2019-03-29] MEDS ORDERED: INSULIN (NOVOLOG) ASPART 100 UNITS/ML 10ML VIAL ONE (21:20)
[2019-03-29] MEDS: ATORVASTATIN CA 80 MG TABLET (FP) PO SCH (21:41)
[2019-03-30] MEDS: oxyCODONE HCL 5 MG TABLET PO PRN ×2 (05:35→21:54)
[2019-03-30] MEDS: INSULIN SLIDING SCALE (NOVOLOG) 1 VIAL SQ SCH ×4 (06:05→21:49)
[2019-03-30] MEDS: INSULIN (LEVEMIR) 100 UNITS/ML UNITS SQ SCH ×2 (06:05→21:46)
--- NOTE | 2019-03-30 08:24 | PN ---
Progress Note, Physician Chief Complaint: Pain in foot resolved. Continued treatment for UTI/esbl. History of Present Illness: 58 F h/o poorly controlled IDDM, PAD with claudication s/p revascularization, chronic BLE wounds (sees Dr. Keene, current right toe dry gangrene, left plantar healing ulcer x 2, refusing debridement of wounds, multiple left toe amputations), and HTN admitted for R fem-pop stenosis with planned re- vascularization in am - Current Medication List Current Medications: Active Medications Aspirin (Ecotrin -) 81 mg PO DAILY [facility] Atorvastatin Calcium (Lipitor -) 80 mg PO HS [facility] Last Admin: 03/29/19 21:41 Dose: 80 mg Clopidogrel Bisulfate (Plavix -) 75 mg PO DAILY [facility] Last Admin: 03/29/19 14:00 Dose: 75 mg Ertapenem 1 gm/ Sodium (Chloride) 50 mls @ 100 mls/hr IVPB DAILY [facility] Insulin Aspart (Novolog Vial Sliding Scale -) 1 vial SQ ACHS [facility]; Protocol Last Admin: 03/30/19 06:05 Dose: 4 units Insulin Detemir (Levemir Vial) 15 units SQ BID@0700,2200 [facility] Last Admin: 03/30/19 06:05 Dose: 15 units Losartan Potassium (Cozaar -) 25 mg PO DAILY [facility] Ondansetron HCl (Zofran Injection) 4 mg IVPUSH Q6H PRN PRN Reason: NAUSEA AND/OR VOMITING Oxycodone HCl (Roxicodone -) 10 mg PO Q4H PRN PRN Reason: PAIN LEVEL 7 - 10 Stop: 03/31/19 15:45 Oxycodone HCl (Roxicodone -) 5 mg PO Q4H PRN PRN Reason: PAIN LEVEL 4 - 6 Stop: 03/31/19 15:45 Last Admin: 03/30/19 05:35 Dose: 5 mg - Objective Vital Signs: Vital Signs Temperature 98.1 F 03/30/19 06:21 Pulse Rate 93 H 03/29/19 19:03 Respiratory Rate 03/30/19 06:21 Blood Pressure 151/69 03/30/19 06:21 O2 Sat by Pulse Oximetry (%) 98 03/29/19 15:46 Additional Findings/Remarks: Constitutional: Yes: Well Nourished, No Distress, Calm Eyes: Yes: WNL, Conjunctiva Clear HENT: Yes: WNL, Atraumatic, Normocephalic Neck: Yes: WNL, Supple, Trachea Midline Cardiovascular: Yes: WNL, Regular Rate and Rhythm Respiratory: Yes: WNL, Regular, CTA Bilaterally Gastrointestinal: Yes: WNL, Normal Bowel Sounds ...Rectal Exam: Yes: Deferred Genitourinary: Yes: WNL Breast(s): Yes: WNL Musculoskeletal: Yes: WNL Extremities: Yes: Amputation (multiple toe amputations to left foot), DRSG C/D/I Edema: No Peripheral Pulses WNL: No Peripheral Pulses: Left Radial: 2+, Right Radial: 2+, Left Doralis Pedis: 0, Right Dorsalis Pedis: 0, Left Femoral: 0, Right Femoral: 0 Integumentary: Yes: Venous Stasis Changes (to LE BL with multiple toe amputations to left) Neurological: Yes: WNL, Alert, Oriented ...Motor Strength: LLE, RLE Psychiatric: Yes: WNL Labs: CBC, BMP 03/29/19 07:35 03/29/19 07:35 INR, PTT INR 1.01 (0.83-1.09) 03/27/19 10:30 Problem List - Problems (1) Prophylactic measure Assessment/Plan: FEN Fluids: adequate PO intake, Electrolytes: monitor & replete as needed Nutrition:DIABETIC DIET DVT moderate risk plavix Dispo Maintain as inpatient full code discharge planning Code(s): Z29.9 - ENCOUNTER FOR PROPHYLACTIC MEASURES, UNSPECIFIED (2) Wound of lower extremity Assessment/Plan: s/p angiogram and angioplasty yesterday/ Dr Jones follows with Dr Rodriguez in wound clinic c/w ertapenem ID following Code(s): S81.809A - UNSPECIFIED OPEN WOUND, UNSPECIFIED LOWER LEG, INIT ENCNTR (3) IDDM (insulin dependent diabetes mellitus) Assessment/Plan: HgbA1C 10.8 BGM better controlled with addition of higher dose levemir BGM q AC/HS with novolog sliding scale c/w levemir diabetic diet Code(s): E11.9 - TYPE 2 DIABETES MELLITUS WITHOUT COMPLICATIONS; 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 (4) HTN (hypertension) Assessment/Plan: normotensive c/w cozaar Code(s): I10 - ESSENTIAL (PRIMARY) HYPERTENSION Qualifiers: Hypertension type: essential hypertension Qualified Code(s): I10 - Essential (primary) hypertension (5) PAD (peripheral artery disease) Assessment/Plan: s/p angiogram and angioplasty yesterday c/w plavix Code(s): I73.9 - PERIPHERAL VASCULAR DISEASE, UNSPECIFIED (6) Leukocytosis Assessment/Plan: afebrile, wbc 17.3 may be reactive to steroids given in ED BCx ngtd Ucx with klebsiella c/w ertapenem ID following Code(s): D72.829 - ELEVATED WHITE BLOOD CELL COUNT, UNSPECIFIED Visit type - Emergency Visit Emergency Visit: Yes ED Registration Date: 03/27/19 Care time: The patient presented to the Emergency Department on the above date and was hospitalized for further evaluation of their emergent condition. - New Patient This patient is new to me today: No - Critical Care Critical Care patient: No - Discharge Referral Referred to [facility] No
[2019-03-30] MEDS ORDERED: PT OWN MED DRAWER 7, Y5N ONE (08:44)
[2019-03-30] MEDS: ASPIRIN COATED 81 MG TABLET.EC PO SCH (09:03)
[2019-03-30] MEDS: CLOPIDOGREL BISULFATE 75 MG TABLET (FP) PO SCH (09:03)
[2019-03-30] MEDS: LOSARTAN POTASSIUM 25 MG TABLET PO SCH (09:04)
[2019-03-30] MEDS: ERTAPENEM SODIUM 1 GM in SODIUM CHLORIDE 50 ML IVPB SCH (09:19)
[2019-03-30 09:40] LABS: HEMATOCRIT 24.7 % (32.4-45.2); HEMOGLOBIN 7.9 GM/dL (10.7-15.3); MCH 26.8 pg (25.7-33.7); MCHC 32.2 g/dl (32.0-36.0); MEAN CELL VOLUME 83.4 fl (80-96); MEAN PLT VOLUME 8.8 fl (7.5-11.1); PLATELET COUNT 349 K/MM3 (134-434); RBC 2.96 M/mm3 (3.60-5.2); RDW 15.7 % (11.6-15.6); WHITE BLOOD COUNT 17.2 K/mm3 (4.0-10.0)
[2019-03-30] MEDS ORDERED: ASPIRIN COATED 81 MG TABLET.EC PO SCH (10:00)
[2019-03-30 10:12] LABS: BILIRUBIN,TOTAL 0.2 mg/dL (0.2-1); BLOOD UREA NITROGEN 27.4 mg/dL (7-18); CALCIUM 8.5 mg/dL (8.5-10.1); CREATININE 0.8 mg/dL (0.55-1.3); MAGNESIUM 2.6 mg/dL (1.8-2.4); POTASSIUM 4.6 mmol/L (3.5-5.1); TOT PROT 6.2 g/dl (6.4-8.2)
--- NOTE | 2019-03-30 10:45 | PN ---
Progress Note (short form) - Note Progress Note: s/p angiogram and angioplasty yesterday still with RLE pain no dysuria no cough or diarrhea Vital Signs Period Temp Pulse Resp BP Sys/Zhang Pulse Ox Last 24 Hr 97.8 F-98.4 F 66-661 16-20 131-169/62-73 98-100 cor-rrr lungs clear abd soft,nt ext gangrene of the toes right foot, no drainage noted left foot plantar ulcers clean CBC, BMP 03/30/19 08:05 03/30/19 08:05 Microbiology 03/27/19 10:36 Blood - Peripheral Venous Blood Culture - Preliminary NO GROWTH OBTAINED AFTER 48 HOURS, INCUBATION TO CONTINUE FOR 3 DAYS. 03/27/19 13:45 Urine - Urine Clean Catch Urine Culture - Final Klebsiella Pneumoniae - Esbl 03/27/19 10:30 Blood - Peripheral Venous Blood Culture - Preliminary NO GROWTH OBTAINED AFTER 48 HOURS, INCUBATION TO CONTINUE FOR 3 DAYS. a/p leukocytosis- ?secondary to right foot gangrene left foot is warm , plantar ulcers are clean wcontinue ertapenem to complete treatment for UTI-klebsiella esbl continue contact isolation vascular f/u per dr kang Problem List - Problems (1) Gangrene of right foot Code(s): I96 - GANGRENE, NOT ELSEWHERE CLASSIFIED (2) Ischemic foot pain at rest Code(s): I73.9 - PERIPHERAL VASCULAR DISEASE, UNSPECIFIED (3) UTI (urinary tract infection) Code(s): N39.0 - URINARY TRACT INFECTION, SITE NOT SPECIFIED (4) ESBL E. coli carrier Code(s): Z22.39 - CARRIER OF OTHER SPECIFIED BACTERIAL DISEASES
[2019-03-30] MEDS ORDERED: INSULIN (NOVOLOG) ASPART 100 UNITS/ML 10ML VIAL ONE ×3 (11:16→21:16)
--- NOTE | 2019-03-30 18:15 | PN ---
Progress Note (short form) - Note Progress Note: VAscular Surgery Pt seen and examined. S/P angioplasty of sfa. Right foot is warm. on plavix. Pt has right foot gangrene. I spoke to pt about next steps. She understands she needs a bka. TMA will not heal. Pt to think about it when she wants it. Gen Jones DO
[2019-03-30] MEDS: ATORVASTATIN CA 80 MG TABLET (FP) PO SCH (21:46)
[2019-03-31] MEDS: INSULIN (LEVEMIR) 100 UNITS/ML UNITS SQ SCH ×2 (06:17→22:10)
[2019-03-31] MEDS: oxyCODONE HCL 5 MG TABLET PO PRN ×2 (06:17→22:09)
[2019-03-31] MEDS: INSULIN SLIDING SCALE (NOVOLOG) 1 VIAL SQ SCH ×4 (06:18→22:16)
[2019-03-31 08:55] LABS: BASO % 0.3 % (0-2.0); EOS % 1.6 % (0-4.5); HEMATOCRIT 23.9 % (32.4-45.2); HEMOGLOBIN 7.6 GM/dL (10.7-15.3); LYMPH % 26.9 % (8-40); MCHC 31.9 g/dl (32.0-36.0); MEAN CELL VOLUME 84.8 fl (80-96); MEAN PLT VOLUME 8.3 fl (7.5-11.1); MONO % 6.3 % (3.8-10.2); NEUT % 64.9 % (42.8-82.8); PLATELET COUNT 291 K/MM3 (134-434); RBC 2.82 M/mm3 (3.60-5.2); RDW 15.7 % (11.6-15.6); WHITE BLOOD COUNT 11.9 K/mm3 (4.0-10.0)
[2019-03-31 09:13] LABS: ALBUMIN 1.9 g/dl (3.4-5.0); BILIRUBIN,TOTAL 0.3 mg/dL (0.2-1); BLOOD UREA NITROGEN 28.9 mg/dL (7-18); CALCIUM 8.4 mg/dL (8.5-10.1); CREATININE 0.7 mg/dL (0.55-1.3); MAGNESIUM 2.2 mg/dL (1.8-2.4); POTASSIUM 4.3 mmol/L (3.5-5.1); TOT PROT 5.9 g/dl (6.4-8.2)
[2019-03-31] MEDS: LOSARTAN POTASSIUM 25 MG TABLET PO SCH (09:49)
[2019-03-31] MEDS: ERTAPENEM SODIUM 1 GM in SODIUM CHLORIDE 50 ML IVPB SCH (09:49)
[2019-03-31] MEDS: CLOPIDOGREL BISULFATE 75 MG TABLET (FP) PO SCH (09:49)
[2019-03-31] MEDS: ASPIRIN COATED 81 MG TABLET.EC PO SCH (09:50)
--- NOTE | 2019-03-31 13:30 | PN ---
Physical Exam: SUBJECTIVE: Patient seen and examined. She complains of pain in her right foot. OBJECTIVE: Vital Signs Period Temp Pulse Resp BP Sys/Zhang Pulse Ox Last 24 Hr 98.1 F-98.2 F 78-81 18-20 129-147/58-78 98-98 GENERAL: The patient is awake, alert, and fully oriented, in no acute distress. LUNGS: Breath sounds equal, clear to auscultation bilaterally, no wheezes, no crackles, no accessory muscle use. HEART: Regular rate and rhythm, S1, S2 without murmur, rub or gallop. ABDOMEN: Soft, nontender, nondistended, normoactive bowel sounds, no guarding, no rebound, no hepatosplenomegaly, no masses. EXTREMITIES: No edema. Gangrene of right 2nd and 4th toes, right heel Laboratory Results - last 24 hr 03/30/19 03/30/19 03/31/19 16:25 21:47 05:50 WBC RBC Hgb Hct MCV MCH MCHC RDW Plt Count MPV Absolute Neuts (auto) Neutrophils % Lymphocytes % Monocytes % Eosinophils % Basophils % Nucleated RBC % Sodium Potassium Chloride Carbon Dioxide Anion Gap BUN Creatinine Est GFR (CKD-EPI)AfAm Est GFR (CKD-EPI)NonAf POC Glucometer 210 203 164 Random Glucose Calcium Magnesium Total Bilirubin AST ALT Alkaline Phosphatase Total Protein Albumin 03/31/19 03/31/19 03/31/19 07:50 07:50 11:44 WBC 11.9 H RBC 2.82 L Hgb 7.6 L Hct 23.9 L MCV 84.8 MCH 27.0 MCHC 31.9 L RDW 15.7 H Plt Count 291 MPV 8.3 Absolute Neuts (auto) 7.7 Neutrophils % 64.9 Lymphocytes % 26.9 D Monocytes % 6.3 Eosinophils % 1.6 Basophils % 0.3 Nucleated RBC % 0 Sodium 141 Potassium 4.3 Chloride 106 Carbon Dioxide 28 Anion Gap 7 L BUN 28.9 H Creatinine 0.7 Est GFR (CKD-EPI)AfAm 111.47 Est GFR (CKD-EPI)NonAf 96.18 POC Glucometer 138 Random Glucose 150 H Calcium 8.4 L Magnesium 2.2 Total Bilirubin 0.3 AST 19 ALT 15 Alkaline Phosphatase 114 Total Protein 5.9 L Albumin 1.9 L Active Medications Generic Name Dose Route Start Last Admin Trade Name Freq PRN Reason Stop Dose Admin Aspirin 81 mg 03/30/19 10:00 03/31/19 09:50 Ecotrin - PO 81 mg DAILY [facility] Administration Atorvastatin Calcium 80 mg 03/29/19 22:00 03/30/19 21:46 Lipitor - PO 80 mg HS [facility] Administration Clopidogrel Bisulfate 75 mg 03/29/19 14:00 03/31/19 09:49 Plavix - PO 75 mg DAILY [facility] Administration Ertapenem 1 gm/ Sodium 50 mls @ 100 mls/hr 03/30/19 10:00 03/31/19 09:49 Chloride IVPB 100 mls/hr DAILY [facility] Administration Insulin Aspart 1 vial 03/29/19 16:30 03/31/19 11:50 Novolog Vial Sliding Scale - SQ Not Given [facility]S [facility] Protocol Insulin Detemir 15 units 03/29/19 22:00 03/31/19 06:17 Levemir Vial SQ 15 units BID@0700,2200 [facility] Administration Losartan Potassium 25 mg 03/30/19 10:00 03/31/19 09:49 Cozaar - PO 25 mg DAILY [facility] Administration Ondansetron HCl 4 mg 03/29/19 17:03 Zofran Injection IVPUSH Q6H PRN NAUSEA AND/OR VOMITING Oxycodone HCl 10 mg 03/29/19 15:46 Roxicodone - PO 03/31/19 15:45 Q4H PRN PAIN LEVEL 7 - 10 Oxycodone HCl 5 mg 03/29/19 15:46 03/31/19 06:17 Roxicodone - PO 03/31/19 15:45 5 mg Q4H PRN Administration PAIN LEVEL 4 - 6 ASSESSMENT/PLAN: This is a 58 year old woman with a history of type 2 DM, PAD, HTN who presented to the ED with worsening right calf pain. 1. PAD with gangrene of right toes and heel - History of right 3rd toe amputation - s/p aortogram, RLE angiogram, right SFA angioplasty on 03/29 - Continue aspirin, Plavix, Lipitor - Patient agreeable to right BKA 2. ESBL Klebsiella UTI - Continue ertapenem 3. Type 2 DM, uncontrolled - Continue Levemir, Novolog sliding scale 4. HTN - Continue Cozaar Visit type - Emergency Visit Emergency Visit: Yes ED Registration Date: 03/27/19 Care time: The patient presented to the Emergency Department on the above date and was hospitalized for further evaluation of their emergent condition. - New Patient This patient is new to me today: Yes Date on this admission: 03/31/19 - Critical Care Critical Care patient: No - Discharge Referral Referred to [facility] Med [facility]C.: No
[2019-03-31] MEDS ORDERED: INSULIN (NOVOLOG) ASPART 100 UNITS/ML 10ML VIAL ONE (21:11)
[2019-03-31] MEDS: ATORVASTATIN CA 80 MG TABLET (FP) PO SCH (22:09)
[2019-04-01] MEDS: INSULIN (LEVEMIR) 100 UNITS/ML UNITS SQ SCH ×2 (06:26→22:36)
[2019-04-01] MEDS: INSULIN SLIDING SCALE (NOVOLOG) 1 VIAL SQ SCH ×4 (06:26→22:40)
[2019-04-01] MEDS ORDERED: INSULIN (LEVEMIR) 100 UNITS/ML UNITS SQ ONE (06:33)
[2019-04-01] MEDS ORDERED: INSULIN (NOVOLOG) ASPART 100 UNITS/ML 10ML VIAL ONE ×2 (06:33→22:10)
--- NOTE | 2019-04-01 08:01 | PN ---
Progress Note, Physician Chief Complaint: Informed by vascular that BKA is likely. Pt coming to terms with this. Continued treatment for UTI/esbl. History of Present Illness: 58 F h/o poorly controlled IDDM, PAD with claudication s/p revascularization, chronic BLE wounds (sees Dr. Keene, current right toe dry gangrene, left plantar healing ulcer x 2, refusing debridement of wounds, multiple left toe amputations), and HTN admitted for R fem-pop stenosis with planned re- vascularization in am - Current Medication List Current Medications: Active Medications Aspirin (Ecotrin -) 81 mg PO DAILY [facility] Last Admin: 03/31/19 09:50 Dose: 81 mg Atorvastatin Calcium (Lipitor -) 80 mg PO HS [facility] Last Admin: 03/31/19 22:09 Dose: Not Given Clopidogrel Bisulfate (Plavix -) 75 mg PO DAILY [facility] Last Admin: 03/31/19 09:49 Dose: 75 mg Ertapenem 1 gm/ Sodium (Chloride) 50 mls @ 100 mls/hr IVPB DAILY [facility] Last Admin: 03/31/19 09:49 Dose: 100 mls/hr Insulin Aspart (Novolog Vial Sliding Scale -) 1 vial SQ [facility]; Protocol Last Admin: 04/01/19 06:26 Dose: Not Given Insulin Detemir (Levemir Vial) 15 units SQ BID@0700,2200 [facility] Last Admin: 04/01/19 06:26 Dose: 15 units Losartan Potassium (Cozaar -) 25 mg PO DAILY [facility] Last Admin: 03/31/19 09:49 Dose: 25 mg Ondansetron HCl (Zofran Injection) 4 mg IVPUSH Q6H PRN PRN Reason: NAUSEA AND/OR VOMITING Oxycodone HCl (Roxicodone -) 5 mg PO Q4H PRN PRN Reason: PAIN LEVEL 4 - 6 Last Admin: 03/31/19 22:09 Dose: 5 mg - Objective Vital Signs: Vital Signs Temperature 98.4 F 04/01/19 06:00 Pulse Rate 87 04/01/19 06:00 Respiratory Rate 18 04/01/19 06:00 Blood Pressure 158/77 04/01/19 06:00 O2 Sat by Pulse Oximetry (%) 98 03/31/19 21:00 Additional Findings/Remarks: Constitutional: Yes: Well Nourished, No Distress, Calm Eyes: Yes: WNL, Conjunctiva Clear HENT: Yes: WNL, Atraumatic, Normocephalic Neck: Yes: WNL, Supple, Trachea Midline Cardiovascular: Yes: WNL, Regular Rate and Rhythm Respiratory: Yes: WNL, Regular, CTA Bilaterally Gastrointestinal: Yes: WNL, Normal Bowel Sounds ...Rectal Exam: Yes: Deferred Genitourinary: Yes: WNL Breast(s): Yes: WNL Musculoskeletal: Yes: WNL Extremities: Yes: Amputation (multiple toe amputations to left foot), DRSG C/D/I Edema: No Peripheral Pulses WNL: No Peripheral Pulses: Left Radial: 2+, Right Radial: 2+, Left Doralis Pedis: 0, Right Dorsalis Pedis: 0, Left Femoral: 0, Right Femoral: 0 Integumentary: Yes: Venous Stasis Changes (to LE BL with multiple toe amputations to left) Neurological: Yes: WNL, Alert, Oriented ...Motor Strength: LLE, RLE Psychiatric: Yes: WNL Labs: CBC, BMP 03/31/19 07:50 03/31/19 07:50 INR, PTT INR 1.01 (0.83-1.09) 03/27/19 10:30 Problem List - Problems (1) Prophylactic measure Assessment/Plan: FEN Fluids: adequate PO intake, Electrolytes: monitor & replete as needed Nutrition:DIABETIC DIET DVT moderate risk plavix Dispo Maintain as inpatient full code discharge planning Code(s): Z29.9 - ENCOUNTER FOR PROPHYLACTIC MEASURES, UNSPECIFIED (2) Wound of lower extremity Assessment/Plan: s/p angiogram and angioplasty on plavix right foot warm vascular following BKA likely follows with Dr Rodriguez in wound clinic c/w ertapenem ID following Code(s): S81.809A - UNSPECIFIED OPEN WOUND, UNSPECIFIED LOWER LEG, INIT ENCNTR (3) IDDM (insulin dependent diabetes mellitus) Assessment/Plan: HgbA1C 10.8 BGM better controlled BGM q AC/HS with novolog sliding scale c/w levemir diabetic diet Code(s): E11.9 - TYPE 2 DIABETES MELLITUS WITHOUT COMPLICATIONS; Z79.4 - [facility] (CURRENT) USE OF INSULIN (4) HTN (hypertension) Assessment/Plan: normotensive c/w cozaar Code(s): I10 - ESSENTIAL (PRIMARY) HYPERTENSION Qualifiers: Hypertension type: essential hypertension Qualified Code(s): I10 - Essential (primary) hypertension (5) PAD (peripheral artery disease) Assessment/Plan: s/p angiogram and angioplasty yesterday c/w plavix Code(s): I73.9 - PERIPHERAL VASCULAR DISEASE, UNSPECIFIED (6) Leukocytosis Assessment/Plan: afebrile, wbc 12.6 may be reactive to steroids given in ED BCx ngtd Ucx with klebsiella c/w ertapenem ID following Code(s): D72.829 - ELEVATED WHITE BLOOD CELL COUNT, UNSPECIFIED Visit type - Emergency Visit Emergency Visit: Yes ED Registration Date: 03/27/19 Care time: The patient presented to the Emergency Department on the above date and was hospitalized for further evaluation of their emergent condition. - New Patient This patient is new to me today: No - Critical Care Critical Care patient: No - Discharge Referral Referred to [facility] No
[2019-04-01] MEDS ORDERED: PT OWN MED DRAWER 7, Y5N ONE ×2 (08:53→17:09)
[2019-04-01] MEDS: CLOPIDOGREL BISULFATE 75 MG TABLET (FP) PO SCH (09:04)
[2019-04-01] MEDS: ASPIRIN COATED 81 MG TABLET.EC PO SCH (09:05)
[2019-04-01] MEDS: LOSARTAN POTASSIUM 25 MG TABLET PO SCH (09:05)
[2019-04-01] MEDS: ERTAPENEM SODIUM 1 GM in SODIUM CHLORIDE 50 ML IVPB SCH (09:13)
[2019-04-01 10:05] LABS: BASO % 0.3 % (0-2.0); HEMATOCRIT 27.6 % (32.4-45.2); HEMOGLOBIN 8.7 GM/dL (10.7-15.3); LYMPH % 19.5 % (8-40); MCH 26.5 pg (25.7-33.7); MCHC 31.4 g/dl (32.0-36.0); MEAN CELL VOLUME 84.3 fl (80-96); MEAN PLT VOLUME 8.5 fl (7.5-11.1); MONO % 6.8 % (3.8-10.2); NEUT % 71.4 % (42.8-82.8); PLATELET COUNT 302 K/MM3 (134-434); RBC 3.27 M/mm3 (3.60-5.2); RDW 15.9 % (11.6-15.6); WHITE BLOOD COUNT 12.6 K/mm3 (4.0-10.0)
[2019-04-01 10:53] LABS: BILIRUBIN,TOTAL 0.6 mg/dL (0.2-1); BLOOD UREA NITROGEN 20.9 mg/dL (7-18); CALCIUM 8.8 mg/dL (8.5-10.1); CREATININE 0.7 mg/dL (0.55-1.3); POTASSIUM 4.5 mmol/L (3.5-5.1); TOT PROT 6.1 g/dl (6.4-8.2)
[2019-04-01] MEDS: oxyCODONE HCL 5 MG TABLET PO PRN ×2 (14:56→22:37)
[2019-04-01] MEDS: ATORVASTATIN CA 80 MG TABLET (FP) PO SCH (22:36)
[2019-04-02] MEDS: INSULIN (LEVEMIR) 100 UNITS/ML UNITS SQ SCH ×2 (06:27→22:30)
[2019-04-02] MEDS: INSULIN SLIDING SCALE (NOVOLOG) 1 VIAL SQ SCH ×4 (06:28→22:35)
[2019-04-02] MEDS: oxyCODONE HCL 5 MG TABLET PO PRN ×2 (06:31→22:39)
--- NOTE | 2019-04-02 07:14 | SPA.PREOP ---
- PRE-OP NOTE Dx: PAD with gangrene of right toes and heel Planned Procedure: RLE BKA Surgeon: Gen kang Last Vital Signs Temp Pulse Resp BP Pulse Ox 98.7 F 81 18 146/73 97 04/02/19 06:00 04/02/19 06:00 04/02/19 06:00 04/02/19 06:00 04/01/19 21:00 Lab Results WBC 12.6 K/mm3 (4.0-10.0) H 04/01/19 09:30 RBC 3.27 M/mm3 (3.60-5.2) L 04/01/19 09:30 Hgb 8.7 GM/dL (10.7-15.3) L 04/01/19 09:30 Hct 27.6 % (32.4-45.2) L D 04/01/19 09:30 MCV 84.3 fl (80-96) 04/01/19 09:30 MCHC 31.4 g/dl (32.0-36.0) L 04/01/19 09:30 RDW 15.9 % (11.6-15.6) H 04/01/19 09:30 Plt Count 302 K/MM3 (134-434) 04/01/19 09:30 Sodium 137 mmol/L (136-145) 04/01/19 09:30 Potassium 4.5 mmol/L (3.5-5.1) 04/01/19 09:30 Chloride 100 mmol/L (98-107) 04/01/19 09:30 Carbon Dioxide 32 mmol/L (21-32) 04/01/19 09:30 Anion Gap 6 MMOL/L (8-16) L 04/01/19 09:30 BUN 20.9 mg/dL (7-18) H 04/01/19 09:30 Creatinine 0.7 mg/dL (0.55-1.3) 04/01/19 09:30 Random Glucose 220 mg/dL (74-106) H 04/01/19 09:30 Calcium 8.8 mg/dL (8.5-10.1) 04/01/19 09:30 Blood Type O POSITIVE 03/27/19 10:30 Antibody Screen Negative 03/27/19 10:30 INR 1.01 (0.83-1.09) 03/27/19 10:30 - IMAGING X-ray: Report Reviewed, Image Reviewed Other: Report Reviewed (CTA aortogram with bilateral lower extremtiy runoff), Image Reviewed - ASSESSMENT/PLAN 1. Make NPO after midnight except po meds 2. GI/DVT PPX 3. Medical optimization / clearance 4. Consent to be obtained by surgeon after risks, benefits and alternatives discussed with patient and or Health Care Proxy. 5. repeat Type & Screen ordered Problem List - Problems (1) Occlusion of stent of peripheral artery Code(s): T82.599A - [facility] COMPL OF UNSP CARDIAC AND VASC DEVICES AND IMPLNT, INIT Qualifiers: Encounter type: initial encounter Qualified Code(s): T82.599A - Other mechanical complication of unspecified cardiac and vascular devices and implants , initial encounter (2) Wound of lower extremity Code(s): S81.809A - UNSPECIFIED OPEN WOUND, UNSPECIFIED LOWER LEG, INIT ENCNTR (3) PAD (peripheral artery disease) Code(s): I73.9 - PERIPHERAL VASCULAR DISEASE, UNSPECIFIED (4) IDDM (insulin dependent diabetes mellitus) Code(s): E11.9 - TYPE 2 DIABETES MELLITUS WITHOUT COMPLICATIONS; 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 (5) Ischemic foot pain at rest Code(s): I73.9 - PERIPHERAL VASCULAR DISEASE, UNSPECIFIED (6) Gangrene Code(s): I96 - GANGRENE, NOT ELSEWHERE CLASSIFIED (7) HTN (hypertension) Code(s): I10 - ESSENTIAL (PRIMARY) HYPERTENSION Qualifiers: Hypertension type: essential hypertension Qualified Code(s): I10 - Essential (primary) hypertension (8) Osteomyelitis Code(s): M86.9 - OSTEOMYELITIS, UNSPECIFIED Qualifiers: Osteomyelitis type: other chronic Osteomyelitis location: hand Laterality : right Qualified Code(s): M86.641 - Other chronic osteomyelitis, right hand Visit type - Case Type Case Type: ED Admission - Emergency Emergency Visit: Yes ED Registration Date: 03/27/19 Care time: The patient presented to the Emergency Department on the above date and was hospitalized for further evaluation of their emergent condition. - New patient This patient is new to me today: Yes Date on this admission: 04/02/19
[2019-04-02] MEDS ORDERED: INSULIN (NOVOLOG) ASPART 100 UNITS/ML 10ML VIAL ONE ×3 (07:24→16:40)
--- NOTE | 2019-04-02 08:08 | PN ---
Progress Note, Physician Chief Complaint: Pt agreeable to BKA with Dr Jones. Planned for tomorrow. NPO after mn. Continued treatment for UTI/esbl. History of Present Illness: 58 F h/o poorly controlled IDDM, PAD with claudication s/p revascularization, chronic BLE wounds (sees Dr. Keene, current right toe dry gangrene, left plantar healing ulcer x 2, refusing debridement of wounds, multiple left toe amputations), and HTN admitted for R fem-pop stenosis with planned re- vascularization in am - Current Medication List Current Medications: Active Medications Aspirin (Ecotrin -) 81 mg PO DAILY [facility] Last Admin: 04/01/19 09:05 Dose: 81 mg Atorvastatin Calcium (Lipitor -) 80 mg PO HS [facility] Last Admin: 04/01/19 22:36 Dose: 80 mg Clopidogrel Bisulfate (Plavix -) 75 mg PO DAILY [facility] Last Admin: 04/01/19 09:04 Dose: 75 mg Ertapenem 1 gm/ Sodium (Chloride) 50 mls @ 100 mls/hr IVPB DAILY [facility] Last Admin: 04/01/19 09:13 Dose: 100 mls/hr Insulin Aspart (Novolog Vial Sliding Scale -) 1 vial SQ ACHS [facility]; Protocol Last Admin: 04/02/19 06:28 Dose: 2 units Insulin Detemir (Levemir Vial) 15 units SQ BID@0700,2200 [facility] Last Admin: 04/02/19 06:27 Dose: 15 units Losartan Potassium (Cozaar -) 25 mg PO DAILY [facility] Last Admin: 04/01/19 09:05 Dose: 25 mg Ondansetron HCl (Zofran Injection) 4 mg IVPUSH Q6H PRN PRN Reason: NAUSEA AND/OR VOMITING Oxycodone HCl (Roxicodone -) 5 mg PO Q4H PRN PRN Reason: PAIN LEVEL 4 - 6 Last Admin: 04/02/19 06:31 Dose: 5 mg - Objective Vital Signs: Vital Signs Temperature 98.7 F 04/02/19 06:00 Pulse Rate 81 04/02/19 06:00 Respiratory Rate 18 04/02/19 06:00 Blood Pressure 146/73 04/02/19 06:00 O2 Sat by Pulse Oximetry (%) 97 04/01/19 21:00 Additional Findings/Remarks: Constitutional: Yes: Well Nourished, No Distress, Calm Eyes: Yes: WNL, Conjunctiva Clear HENT: Yes: WNL, Atraumatic, Normocephalic Neck: Yes: WNL, Supple, Trachea Midline Cardiovascular: Yes: WNL, Regular Rate and Rhythm Respiratory: Yes: WNL, Regular, CTA Bilaterally Gastrointestinal: Yes: WNL, Normal Bowel Sounds ...Rectal Exam: Yes: Deferred Genitourinary: Yes: WNL Breast(s): Yes: WNL Musculoskeletal: Yes: WNL Extremities: Yes: Amputation (multiple toe amputations to left foot), DRSG C/D/I Edema: No Peripheral Pulses WNL: No Peripheral Pulses: Left Radial: 2+, Right Radial: 2+, Left Doralis Pedis: 0, Right Dorsalis Pedis: 0, Left Femoral: 0, Right Femoral: 0 Integumentary: Yes: Venous Stasis Changes (to LE BL with multiple toe amputations to left) Neurological: Yes: WNL, Alert, Oriented ...Motor Strength: LLE, RLE Psychiatric: Yes: WNL Labs: CBC, BMP 04/01/19 09:30 04/01/19 09:30 INR, PTT INR 1.01 (0.83-1.09) 03/27/19 10:30 Problem List - Problems (1) Prophylactic measure Assessment/Plan: FEN Fluids: adequate PO intake, NPO past mn for planned OR, IVF @75cc/hr Electrolytes: monitor & replete as needed Nutrition:DIABETIC DIET DVT moderate risk plavix on hold for OR Dispo Maintain as inpatient full code discharge planning Code(s): Z29.9 - ENCOUNTER FOR PROPHYLACTIC MEASURES, UNSPECIFIED (2) Wound of lower extremity Assessment/Plan: s/p angiogram and angioplasty planned BKA tomorrow plavix on hold c/w ertapenem ID following Code(s): S81.809A - UNSPECIFIED OPEN WOUND, UNSPECIFIED LOWER LEG, INIT ENCNTR (3) IDDM (insulin dependent diabetes mellitus) Assessment/Plan: HgbA1C 10.8 BGM better controlled BGM q AC/HS with novolog sliding scale c/w levemir diabetic diet Code(s): E11.9 - TYPE 2 DIABETES MELLITUS WITHOUT COMPLICATIONS; 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 (4) HTN (hypertension) Assessment/Plan: normotensive c/w cozaar Code(s): I10 - ESSENTIAL (PRIMARY) HYPERTENSION Qualifiers: Hypertension type: essential hypertension Qualified Code(s): I10 - Essential (primary) hypertension (5) PAD (peripheral artery disease) Assessment/Plan: s/p angiogram and angioplasty yesterday holding plavix BKA planned for tomorrow Code(s): I73.9 - PERIPHERAL VASCULAR DISEASE, UNSPECIFIED (6) Leukocytosis Assessment/Plan: afebrile, wbc 12.1 may be reactive to steroids given in ED BCx ngtd Ucx with klebsiella c/w ertapenem ID following Code(s): D72.829 - ELEVATED WHITE BLOOD CELL COUNT, UNSPECIFIED Visit type - Emergency Visit Emergency Visit: Yes ED Registration Date: 03/27/19 Care time: The patient presented to the Emergency Department on the above date and was hospitalized for further evaluation of their emergent condition. - New Patient This patient is new to me today: No - Critical Care Critical Care patient: No - Discharge Referral Referred to [facility] No
[2019-04-02 08:31] LABS: BASO % 0.3 % (0-2.0); EOS % 1.9 % (0-4.5); HEMATOCRIT 25.5 % (32.4-45.2); HEMOGLOBIN 8.2 GM/dL (10.7-15.3); LYMPH % 20.8 % (8-40); MCH 26.8 pg (25.7-33.7); MCHC 32.2 g/dl (32.0-36.0); MEAN CELL VOLUME 83.2 fl (80-96); MEAN PLT VOLUME 8.4 fl (7.5-11.1); MONO % 6.7 % (3.8-10.2); NEUT % 70.3 % (42.8-82.8); PLATELET COUNT 301 K/MM3 (134-434); RBC 3.07 M/mm3 (3.60-5.2); RDW 16.2 % (11.6-15.6); WHITE BLOOD COUNT 12.1 K/mm3 (4.0-10.0)
[2019-04-02] MEDS: ERTAPENEM SODIUM 1 GM in SODIUM CHLORIDE 50 ML IVPB SCH (10:12)
[2019-04-02] MEDS: LOSARTAN POTASSIUM 25 MG TABLET PO SCH (10:12)
[2019-04-02] MEDS: ASPIRIN COATED 81 MG TABLET.EC PO SCH (10:12)
[2019-04-02] MEDS: CLOPIDOGREL BISULFATE 75 MG TABLET (FP) PO SCH (10:12)
[2019-04-02] MEDS: ATORVASTATIN CA 80 MG TABLET (FP) PO SCH (22:30)
[2019-04-03] MEDS: SODIUM CHLORIDE 1,000 ML IV SCH ×3 (00:05→21:49)
[2019-04-03] MEDS: INSULIN (LEVEMIR) 100 UNITS/ML UNITS SQ SCH ×2 (06:35→21:49)
[2019-04-03] MEDS: INSULIN SLIDING SCALE (NOVOLOG) 1 VIAL SQ SCH ×4 (06:36→21:59)
[2019-04-03 09:24] LABS: INR 1.13 (0.83-1.09); PROTHROMBIN TIME (PATIENT) 13.4 SEC (9.7-13.0)
[2019-04-03 09:42] LABS: BILIRUBIN,TOTAL 0.7 mg/dL (0.2-1); CALCIUM 8.6 mg/dL (8.5-10.1); CREATININE 0.7 mg/dL (0.55-1.3); MAGNESIUM 2.1 mg/dL (1.8-2.4); PHOSPHOROUS 3.4 mg/dL (2.5-4.9); POTASSIUM 4.2 mmol/L (3.5-5.1); TOT PROT 5.8 g/dl (6.4-8.2)
[2019-04-03] MEDS: ERTAPENEM SODIUM 1 GM in SODIUM CHLORIDE 50 ML IVPB SCH (09:54)
[2019-04-03] MEDS: LOSARTAN POTASSIUM 25 MG TABLET PO SCH (09:54)
[2019-04-03 10:29] LABS: BASO % 0.5 % (0-2.0); EOS % 2.1 % (0-4.5); HEMATOCRIT 27.7 % (32.4-45.2); HEMOGLOBIN 8.6 GM/dL (10.7-15.3); MCH 26.5 pg (25.7-33.7); MEAN CELL VOLUME 85.6 fl (80-96); MEAN PLT VOLUME 8.8 fl (7.5-11.1); MONO % 8.6 % (3.8-10.2); NEUT % 66.8 % (42.8-82.8); PLATELET COUNT 298 K/MM3 (134-434); RBC 3.24 M/mm3 (3.60-5.2); RDW 16.6 % (11.6-15.6)
--- NOTE | 2019-04-03 15:07 | PN ---
Physical Exam: SUBJECTIVE: Patient seen and examined at the bedside. awake and alert and is ready for her surgery today, she denies any pain or discomfort. OBJECTIVE: Patient is a 58 year old female with a significant past medical history of poorly controlled IDDM, PAD with claudication s/p revascularization, chronic BLE wounds and HTN. She presents to the ED on 03/27/2019 with acute on chronic worsened right calf pain accompanied with chills. she was admitted for a right fem pop stenosis with planned re-vascularization. Pt agreeable to BKA with Dr Jones planned for today. Patient also on contact isolation for +uti/esbl. Period Temp Pulse Resp BP Sys/Zhang Pulse Ox Last 24 Hr 98 F-99.1 F 77-91 18-20 111-150/56-66 95-96 GENERAL: The patient is awake, alert, and fully oriented, in no acute distress. HEAD: Normal with no signs of trauma. EYES: PERRL, extraocular movements intact, sclera anicteric, conjunctiva clear. No ptosis. ENT: Ears normal, nares patent, oropharynx clear without exudates, moist mucous membranes. NECK: Trachea midline, full range of motion, supple. LUNGS: Breath sounds equal, clear to auscultation bilaterally, no wheezes HEART: Regular rate and rhythm ABDOMEN: Soft, nontender, nondistended, normoactive bowel sounds, no guarding EXTREMITIES: right foot with gangrene of right toes and heel NEUROLOGICAL: Normal speech, gait not observed. PSYCH: Normal mood, normal affect. Laboratory Results - last 24 hr 04/02/19 04/02/19 04/03/19 16:38 22:34 06:00 WBC RBC Hgb Hct MCV MCH MCHC RDW Plt Count MPV Absolute Neuts (auto) Neutrophils % Lymphocytes % Monocytes % Eosinophils % Basophils % Nucleated RBC % PT with INR INR Sodium 136 Potassium 4.2 Chloride 101 Carbon Dioxide 28 Anion Gap 8 BUN 18.0 Creatinine 0.7 Est GFR (CKD-EPI)AfAm 111.47 Est GFR (CKD-EPI)NonAf 96.18 POC Glucometer 171 221 Random Glucose 146 H Calcium 8.6 Phosphorus 3.4 Magnesium 2.1 Total Bilirubin 0.7 AST 17 ALT 19 Alkaline Phosphatase 106 Total Protein 5.8 L Albumin 2.0 L 04/03/19 04/03/19 04/03/19 06:34 07:35 07:35 WBC 13.0 H RBC 3.24 L Hgb 8.6 L Hct 27.7 L MCV 85.6 MCH 26.5 MCHC 31.0 L RDW 16.6 H Plt Count 298 MPV 8.8 Absolute Neuts (auto) 8.7 H Neutrophils % 66.8 Lymphocytes % 22.0 Monocytes % 8.6 Eosinophils % 2.1 Basophils % 0.5 Nucleated RBC % 0 PT with INR 13.40 H INR 1.13 H Sodium Potassium Chloride Carbon Dioxide Anion Gap BUN Creatinine Est GFR (CKD-EPI)AfAm Est GFR (CKD-EPI)NonAf POC Glucometer 172 Random Glucose Calcium Phosphorus Magnesium Total Bilirubin AST ALT Alkaline Phosphatase Total Protein Albumin 04/03/19 11:23 WBC RBC Hgb Hct MCV MCH MCHC RDW Plt Count MPV Absolute Neuts (auto) Neutrophils % Lymphocytes % Monocytes % Eosinophils % Basophils % Nucleated RBC % PT with INR INR Sodium Potassium Chloride Carbon Dioxide Anion Gap BUN Creatinine Est GFR (CKD-EPI)AfAm Est GFR (CKD-EPI)NonAf POC Glucometer 107 Random Glucose Calcium Phosphorus Magnesium Total Bilirubin AST ALT Alkaline Phosphatase Total Protein Albumin Active Medications Generic Name Dose Route Start Last Admin Trade Name Freq PRN Reason Stop Dose Admin Aspirin 81 mg 03/30/19 10:00 04/02/19 10:12 Ecotrin - PO 81 mg DAILY SEVERIANO Administration Atorvastatin Calcium 80 mg 03/29/19 22:00 04/02/19 22:30 Lipitor - PO 80 mg HS SEVERIANO Administration Clopidogrel Bisulfate 75 mg 03/29/19 14:00 04/02/19 10:12 Plavix - PO 75 mg DAILY SEVERIANO Administration Ertapenem 1 gm/ Sodium 50 mls @ 100 mls/hr 03/30/19 10:00 04/03/19 09:54 Chloride IVPB 100 mls/hr DAILY SEVERIANO Administration Sodium Chloride 1,000 mls @ 75 mls/hr 04/03/19 00:01 04/03/19 00:05 Normal Saline - IV 75 mls/hr ASDIR SEVERIANO Administration Insulin Aspart 1 vial 03/29/19 16:30 04/03/19 11:29 Novolog Vial Sliding Scale - SQ Not Given ACHS [facility] Protocol Insulin Detemir 15 units 03/29/19 22:00 04/03/19 06:35 Levemir Vial SQ 15 units BID@0700,2200 SEVERIANO Administration Losartan Potassium 25 mg 03/30/19 10:00 04/03/19 09:54 Cozaar - PO 25 mg DAILY SEVERIANO Administration Ondansetron HCl 4 mg 03/29/19 17:03 Zofran Injection IVPUSH Q6H PRN NAUSEA AND/OR VOMITING Oxycodone HCl 5 mg 03/31/19 21:47 04/02/19 22:39 Roxicodone - PO 5 mg Q4H PRN Administration PAIN LEVEL 4 - 6 ASSESSMENT/PLAN: Problem List - Problems (1) Gangrene Assessment/Plan: planned BKA today of right lower extremity. plavix/asa on hold. on ertapenem. ID following Vascular following Code(s): I96 - GANGRENE, NOT ELSEWHERE CLASSIFIED (2) Leukocytosis Assessment/Plan: afebrile wbc slightly elevated blood cultures negative, urine cultures with +esbl uti on ertapenem per ID Code(s): D72.829 - ELEVATED WHITE BLOOD CELL COUNT, UNSPECIFIED (3) UTI (urinary tract infection) Assessment/Plan: on ertapenem Code(s): N39.0 - URINARY TRACT INFECTION, SITE NOT SPECIFIED (4) Wound of lower extremity Assessment/Plan: followed by vascular, BKA today for gangrenous foot Code(s): S81.809A - UNSPECIFIED OPEN WOUND, UNSPECIFIED LOWER LEG, INIT ENCNTR (5) PAD (peripheral artery disease) Code(s): I73.9 - PERIPHERAL VASCULAR DISEASE, UNSPECIFIED (6) Gangrene of right foot Code(s): I96 - GANGRENE, NOT ELSEWHERE CLASSIFIED (7) IDDM (insulin dependent diabetes mellitus) Assessment/Plan: hmga1c 10, on novolog monitor bgms ac/hs Code(s): E11.9 - TYPE 2 DIABETES MELLITUS WITHOUT COMPLICATIONS; Z79.4 - RESIDENTIAL (CURRENT) USE OF INSULIN (8) Diabetes mellitus Assessment/Plan: diabetic diet on novolog Code(s): E11.9 - TYPE 2 DIABETES MELLITUS WITHOUT COMPLICATIONS Qualifiers: Diabetes mellitus type: type 2 (9) HTN (hypertension) Code(s): I10 - ESSENTIAL (PRIMARY) HYPERTENSION Qualifiers: Hypertension type: essential hypertension Qualified Code(s): I10 - Essential (primary) hypertension (10) Prophylactic measure Assessment/Plan: fen on gentle hydration while npo monitor electrolytes diabetic diet bowel regimen full code Code(s): Z29.9 - ENCOUNTER FOR PROPHYLACTIC MEASURES, UNSPECIFIED Visit type - Emergency Visit Emergency Visit: Yes ED Registration Date: 03/27/19 Care time: The patient presented to the Emergency Department on the above date and was hospitalized for further evaluation of their emergent condition. - New Patient This patient is new to me today: Yes Date on this admission: 04/03/19 - Critical Care Critical Care patient: No - Discharge Referral Referred to [facility] Med P.C.: No
[2019-04-03] MEDS ORDERED: HYDROmorphone HCl 2 MG/ML VIAL IVPUSH ONE ×5 (16:41→20:15)
[2019-04-03] MEDS ORDERED: LACTATED RINGERS SOLUTION 1,000 ML IV SCH ×2 (16:45→19:45)
[2019-04-03] MEDS ORDERED: SUCCINYLCHOLINE CHLORIDE 200 MG/10 ML SYRINGE ONE (16:55)
[2019-04-03] MEDS ORDERED: ROCURONIUM BROMIDE 50 MG/5 ML SYRINGE ONE (16:55)
[2019-04-03] MEDS ORDERED: PROPOFOL 20 ML ONE ×2 (16:55)
[2019-04-03] MEDS ORDERED: fentaNYL CITRATE 250 MCG/5 ML VIAL ONE (16:55)
[2019-04-03] MEDS ORDERED: ceFAZolin SODIUM 1 GM VIAL IVPB ONE (17:18)
[2019-04-03] MEDS ORDERED: ceFAZolin SODIUM 1 GM VIAL ONE (17:21)
--- NOTE | 2019-04-03 18:44 | OP ---
Operative Note - Note: Operative Date: 04/03/19 Pre-Operative Diagnosis: Right foot gangrene Operation: right below knee amputation Post-Operative Diagnosis: Same as Pre-op Surgeon: Gen Jones Anesthesia: Fractional Specimens Removed: right leg Estimated Blood Loss (mls): 150 Operative Report Dictated: Yes
[2019-04-03] MEDS ORDERED: ONDANSETRON 4 MG/2 ML VIAL IVPUSH PRN (19:45)
[2019-04-03] MEDS ORDERED: HYDROmorphone HCl 2 MG/ML VIAL ONE (20:06)
--- NOTE | 2019-04-03 20:11 | SURG ---
Surgery Audio Production Engineer Note Audio Production Engineer: Kameron Jama PA-C Date of Service: 04/03/19 Diagnosis: Right foot gangrene Procedure: right below knee amputation I was present for the entirety of the operative procedure. For further detail, please refer to operative report. Visit type - Case Type Case Type: ED Admission - New patient This patient is new to me today: Yes Date on this admission: 04/03/19
[2019-04-03] MEDS ORDERED: INSULIN (NOVOLOG) ASPART 100 UNITS/ML 10ML VIAL ONE (21:24)
[2019-04-03] MEDS: ATORVASTATIN CA 80 MG TABLET (FP) PO SCH (21:50)
[2019-04-03] MEDS: oxyCODONE HCL 5 MG TABLET PO PRN (23:55)
[2019-04-04] MEDS: morphine SULFATE 4 MG/ML VIAL IVPUSH PRN ×3 (00:44→08:37)
[2019-04-04] MEDS: INSULIN (LEVEMIR) 100 UNITS/ML UNITS SQ SCH ×2 (06:56→22:46)
[2019-04-04] MEDS: INSULIN SLIDING SCALE (NOVOLOG) 1 VIAL SQ SCH ×4 (06:57→22:48)
[2019-04-04 09:13] LABS: BASO % 0.2 % (0-2.0); EOS % 0.3 % (0-4.5); HEMATOCRIT 21.4 % (32.4-45.2); MCH 26.3 pg (25.7-33.7); MCHC 31.6 g/dl (32.0-36.0); MEAN CELL VOLUME 83.4 fl (80-96); MEAN PLT VOLUME 8.3 fl (7.5-11.1); MONO % 8.9 % (3.8-10.2); NEUT % 82.6 % (42.8-82.8); PLATELET COUNT 304 K/MM3 (134-434); RBC 2.57 M/mm3 (3.60-5.2); RDW 16.3 % (11.6-15.6); WHITE BLOOD COUNT 17.1 K/mm3 (4.0-10.0)
[2019-04-04] MEDS ORDERED: PT OWN MED DRAWER 7, Y5N ONE (09:15)
[2019-04-04] MEDS: LOSARTAN POTASSIUM 25 MG TABLET PO SCH (09:21)
[2019-04-04 09:23] LABS: HEMOGLOBIN 6.8 GM/dL (10.7-15.3)
[2019-04-04] MEDS: ASPIRIN COATED 81 MG TABLET.EC PO SCH (09:23)
[2019-04-04] MEDS: CLOPIDOGREL BISULFATE 75 MG TABLET (FP) PO SCH (09:24)
[2019-04-04 09:31] LABS: INR 1.19 (0.83-1.09); PROTHROMBIN TIME (PATIENT) 14.1 SEC (9.7-13.0)
[2019-04-04 09:39] LABS: ALBUMIN 1.9 g/dl (3.4-5.0); BILIRUBIN,TOTAL 1.3 mg/dL (0.2-1); BLOOD UREA NITROGEN 19.5 mg/dL (7-18); CALCIUM 8.5 mg/dL (8.5-10.1); CREATININE 0.9 mg/dL (0.55-1.3); POTASSIUM 5.2 mmol/L (3.5-5.1); TOT PROT 5.6 g/dl (6.4-8.2)
[2019-04-04] MEDS: ERTAPENEM SODIUM 1 GM in SODIUM CHLORIDE 50 ML IVPB SCH (09:45)
--- NOTE | 2019-04-04 12:34 | PN ---
Progress Note (short form) - Note Progress Note: 58yo F s/p Rt BKA POD 1. Pt seen and examined at bedside. Pt complaining of significant leg pain not controlled by pain meds. Pt denies fever, chills overnight. Last Vital Signs Temp Pulse Resp BP Pulse Ox 98.2 F 91 H 18 157/70 98 04/04/19 06:00 04/04/19 06:00 04/04/19 06:00 04/04/19 06:00 04/03/19 21:05 CBC, BMP 04/04/19 08:27 04/04/19 08:27 PE: Gen: A&O X3 Resp: breathing comfortably RLE: dressing intact clean, in knee immobilizer Problem List - Problems (1) Gangrene of right foot Assessment/Plan: Plan -better pain control -will remove dressing POD 3 on 04/06 Code(s): I96 - GANGRENE, NOT ELSEWHERE CLASSIFIED
[2019-04-04] MEDS ORDERED: BISACODYL 10 MG SUPP.RECT RC ONE (12:40)
--- NOTE | 2019-04-04 14:45 | PN ---
Physical Exam: SUBJECTIVE: Patient seen and examined at the bedside. having pain on surgical site. verbalizes mild abdominal pain, otherwise feels ok. she agrees to the blood transfusion. OBJECTIVE: Patient is a 58 year old female with a significant past medical history of poorly controlled IDDM, PAD with claudication s/p revascularization, chronic BLE wounds and HTN. She presents to the ED on 03/27/2019 with acute on chronic worsened right calf pain accompanied with chills. she was admitted for a right fem pop stenosis with planned re-vascularization. Patient is s/p right BKA on with Dr. Jones. Patient also on contact isolation for +uti/esbl. for 2 units of prbc today for hmg/hct 6.8/21.4 Vital Signs Period Temp Pulse Resp BP Sys/Zhang Pulse Ox Last 24 Hr 97.7 F-100 F 76-92 12-19 104-169/50-82 92-100 GENERAL: The patient is awake, alert, and fully oriented, in no acute distress. HEAD: Normal with no signs of trauma. EYES: PERRL, extraocular movements intact, sclera anicteric, conjunctiva clear. No ptosis. ENT: Ears normal, nares patent, oropharynx clear without exudates, moist mucous membranes. NECK: Trachea midline, full range of motion, supple. LUNGS: Breath sounds equal, clear to auscultation bilaterally, no wheezes HEART: Regular rate and rhythm ABDOMEN: Soft, nontender, nondistended, normoactive bowel sounds, no guarding EXTREMITIES: s/p right BKA, soft immobilizer in place. NEUROLOGICAL: Normal speech, gait not observed. PSYCH: Normal mood, normal affect. Laboratory Results - last 24 hr 04/03/19 04/03/19 04/03/19 17:30 20:55 21:57 WBC RBC Hgb Hct MCV MCH MCHC RDW Plt Count MPV Absolute Neuts (auto) Neutrophils % Lymphocytes % Monocytes % Eosinophils % Basophils % Nucleated RBC % PT with INR INR Sodium Potassium Chloride Carbon Dioxide Anion Gap BUN Creatinine Est GFR (CKD-EPI)AfAm Est GFR (CKD-EPI)NonAf POC Glucometer 100 117 Random Glucose Calcium Magnesium Total Bilirubin AST ALT Alkaline Phosphatase Total Protein Albumin Blood Type O POSITIVE Antibody Screen Negative Crossmatch See Detail 04/04/19 04/04/19 04/04/19 06:48 08:27 08:27 WBC 17.1 H RBC 2.57 L Hgb 6.8 L* Hct 21.4 L D MCV 83.4 MCH 26.3 MCHC 31.6 L RDW 16.3 H Plt Count 304 MPV 8.3 Absolute Neuts (auto) 14.1 H Neutrophils % 82.6 D Lymphocytes % 8.0 D Monocytes % 8.9 Eosinophils % 0.3 D Basophils % 0.2 Nucleated RBC % 0 PT with INR 14.10 H INR 1.19 H Sodium Potassium Chloride Carbon Dioxide Anion Gap BUN Creatinine Est GFR (CKD-EPI)AfAm Est GFR (CKD-EPI)NonAf POC Glucometer 96 Random Glucose Calcium Magnesium Total Bilirubin AST ALT Alkaline Phosphatase Total Protein Albumin Blood Type Antibody Screen Crossmatch 04/04/19 04/04/19 08:27 12:10 WBC RBC Hgb Hct MCV MCH MCHC RDW Plt Count MPV Absolute Neuts (auto) Neutrophils % Lymphocytes % Monocytes % Eosinophils % Basophils % Nucleated RBC % PT with INR INR Sodium 138 Potassium 5.2 H Chloride 104 Carbon Dioxide 31 Anion Gap 3 L BUN 19.5 H Creatinine 0.9 Est GFR (CKD-EPI)AfAm 82.26 Est GFR (CKD-EPI)NonAf 70.98 POC Glucometer 106 Random Glucose 102 Calcium 8.5 Magnesium 2.0 Total Bilirubin 1.3 H AST 23 ALT 14 Alkaline Phosphatase 81 Total Protein 5.6 L Albumin 1.9 L Blood Type Antibody Screen Crossmatch Active Medications Generic Name Dose Route Start Last Admin Trade Name Freq PRN Reason Stop Dose Admin Aspirin 81 mg 04/04/19 10:00 04/04/19 09:23 Ecotrin - PO 81 mg DAILY SEVERIANO Administration Atorvastatin Calcium 80 mg 04/03/19 22:00 04/03/19 21:50 Lipitor - PO 80 mg HS SEVERIANO Administration Clopidogrel Bisulfate 75 mg 04/04/19 10:00 04/04/19 09:24 Plavix - PO 75 mg DAILY SEVERIANO Administration Fentanyl 50 mcg 04/03/19 19:45 Sublimaze Injection - IVPUSH Q5M PRN PAIN-PACU ORDER X 4 DOSES ONLY Ertapenem 1 gm/ Sodium 50 mls @ 100 mls/hr 04/04/19 10:00 04/04/19 09:45 Chloride IVPB 100 mls/hr DAILY SEVERIANO Administration Sodium Chloride 1,000 mls @ 75 mls/hr 04/03/19 19:45 04/03/19 21:49 Normal Saline - IV 75 mls/hr ASDIR SEVEIRANO Administration Insulin Aspart 1 vial 04/03/19 22:00 04/04/19 12:00 Novolog Vial Sliding Scale - SQ Not Given ACHS [facility] Protocol Insulin Detemir 15 units 04/03/19 22:00 04/04/19 06:56 Levemir Vial SQ Not Given BID@0700,2200 [facility] Losartan Potassium 25 mg 04/04/19 10:00 04/04/19 09:21 Cozaar - PO 25 mg DAILY SEVERIANO Administration Morphine Sulfate 4 mg 04/03/19 18:47 04/04/19 08:37 Morphine Sulfate IVPUSH 4 mg Q4H PRN Administration PAIN LEVEL 4 - 6 Ondansetron HCl 4 mg 04/03/19 19:45 Zofran Injection IVPUSH Q6H PRN NAUSEA AND/OR VOMITING Oxycodone HCl 5 mg 04/03/19 19:45 04/03/19 23:55 Roxicodone - PO 5 mg Q4H PRN Administration PAIN LEVEL 4 - 6 ASSESSMENT/PLAN: Problem List - Problems (1) S/P BKA (below knee amputation) unilateral Assessment/Plan: s/p right lower ext BKA for right foot gangrene on ertepenem pain management post op care: incentive spirometer, bowel regimen, vitals sign monitoring, pain control, surgery follow up. Code(s): Z89.519 - ACQUIRED ABSENCE OF UNSPECIFIED LEG BELOW KNEE (2) Gangrene Assessment/Plan: patient is s/p BKA on 04/03/2019 of right lower extremity. on Plavix/Asa 81mg per vascular to continue post op on ertapenem per ID pain management, medications increased. Code(s): I96 - GANGRENE, NOT ELSEWHERE CLASSIFIED (3) Leukocytosis Assessment/Plan: having low grade fevers today with wbc @ 17 blood cultures negative, urine cultures with +esbl uti on ertapenem per ID Code(s): D72.829 - ELEVATED WHITE BLOOD CELL COUNT, UNSPECIFIED (4) UTI (urinary tract infection) Assessment/Plan: on ertapenem/esbl uti Code(s): N39.0 - URINARY TRACT INFECTION, SITE NOT SPECIFIED (5) Wound of lower extremity Assessment/Plan: s/p BKA with soft immobilizer in place wound care per surgery Code(s): S81.809A - UNSPECIFIED OPEN WOUND, UNSPECIFIED LOWER LEG, INIT ENCNTR (6) PAD (peripheral artery disease) Code(s): I73.9 - PERIPHERAL VASCULAR DISEASE, UNSPECIFIED (7) Gangrene of right foot Code(s): I96 - GANGRENE, NOT ELSEWHERE CLASSIFIED (8) IDDM (insulin dependent diabetes mellitus) Assessment/Plan: hmga1c 10, on novolog monitor bgms ac/hs Code(s): E11.9 - TYPE 2 DIABETES MELLITUS WITHOUT COMPLICATIONS; Z79.4 - SHELTER (CURRENT) USE OF INSULIN (9) Diabetes mellitus Assessment/Plan: diabetic diet on novolog Code(s): E11.9 - TYPE 2 DIABETES MELLITUS WITHOUT COMPLICATIONS Qualifiers: Diabetes mellitus type: type 2 (10) HTN (hypertension) Assessment/Plan: bp controlled Code(s): I10 - ESSENTIAL (PRIMARY) HYPERTENSION Qualifiers: Hypertension type: essential hypertension Qualified Code(s): I10 - Essential (primary) hypertension (11) Prophylactic measure Assessment/Plan: fen monitor electrolytes diabetic diet bowel regimen on plavix and asa 81mg full code Code(s): Z29.9 - ENCOUNTER FOR PROPHYLACTIC MEASURES, UNSPECIFIED Visit type - Emergency Visit Emergency Visit: Yes ED Registration Date: 03/27/19 Care time: The patient presented to the Emergency Department on the above date and was hospitalized for further evaluation of their emergent condition. - New Patient This patient is new to me today: No - Critical Care Critical Care patient: No - Discharge Referral Referred to [facility] Med P.C.: No
[2019-04-04] MEDS ORDERED: ACETAMINOPHEN 325 MG TABLET (FP) PO PRN (15:09)
--- NOTE | 2019-04-04 15:59 | PN ---
Progress Note (short form) - Note Progress Note: s/p BKA-pod #1 has leg pain constipated with gas pain receiving transfusion no cough Vital Signs Period Temp Pulse Resp BP Sys/Zhang Pulse Ox Last 24 Hr 97.7 F-100 F 76-92 12-19 104-169/50-82 92-100 cor-rrr llungs decreased bs at bases abd soft leg binder intact RLE CBC, BMP 04/04/19 08:27 04/04/19 08:27 Microbiology 03/27/19 10:36 Blood - Peripheral Venous Blood Culture - Final NO GROWTH AFTER 5 DAYS INCUBATION 03/27/19 10:30 Blood - Peripheral Venous Blood Culture - Final NO GROWTH AFTER 5 DAYS INCUBATION 03/27/19 13:45 Urine - Urine Clean Catch Urine Culture - Final Klebsiella Pneumoniae - Esbl a/p pod#1 right BKA leukocytosis- ?secondary to anemia s/p bka yesterday anemia- transfusion kleb uti-day #8 of 10 continue contact isolation vascular f/u per dr kang Problem List - Problems (1) Gangrene of right foot Code(s): I96 - GANGRENE, NOT ELSEWHERE CLASSIFIED (2) Ischemic foot pain at rest Code(s): I73.9 - PERIPHERAL VASCULAR DISEASE, UNSPECIFIED (3) UTI (urinary tract infection) Code(s): N39.0 - URINARY TRACT INFECTION, SITE NOT SPECIFIED (4) ESBL E. coli carrier Code(s): Z22.39 - CARRIER OF OTHER SPECIFIED BACTERIAL DISEASES
[2019-04-04 22:08] VITALS: BMI 29.5
[2019-04-04] MEDS: DOCUSATE SODIUM 100 MG CAPSULE (FP) PO SCH (22:46)
[2019-04-04] MEDS: ATORVASTATIN CA 80 MG TABLET (FP) PO SCH (22:46)
[2019-04-04] MEDS: oxyCODONE HCL 5 MG TABLET PO PRN ×2 (22:51→22:59)
[2019-04-04] MEDS: SODIUM CHLORIDE 1,000 ML IV SCH (23:48)
[2019-04-05] MEDS ORDERED: INSULIN (NOVOLOG) ASPART 100 UNITS/ML 10ML VIAL ONE ×3 (06:10→22:24)
[2019-04-05] MEDS: oxyCODONE HCL 5 MG TABLET PO PRN ×2 (06:11→22:24)
[2019-04-05] MEDS: INSULIN (LEVEMIR) 100 UNITS/ML UNITS SQ SCH ×2 (06:12→22:22)
[2019-04-05] MEDS: DOCUSATE SODIUM 100 MG CAPSULE (FP) PO SCH ×3 (06:13→22:21)
[2019-04-05] MEDS: INSULIN SLIDING SCALE (NOVOLOG) 1 VIAL SQ SCH ×4 (06:13→22:33)
[2019-04-05 08:39] LABS: BASO % 0.4 % (0-2.0); EOS % 0.8 % (0-4.5); HEMATOCRIT 27.1 % (32.4-45.2); HEMOGLOBIN 9.1 GM/dL (10.7-15.3); LYMPH % 12.3 % (8-40); MCHC 33.4 g/dl (32.0-36.0); MEAN CELL VOLUME 83.7 fl (80-96); MEAN PLT VOLUME 8.3 fl (7.5-11.1); MONO % 10.7 % (3.8-10.2); NEUT % 75.8 % (42.8-82.8); PLATELET COUNT 290 K/MM3 (134-434); RBC 3.24 M/mm3 (3.60-5.2); RDW 15.4 % (11.6-15.6); WHITE BLOOD COUNT 16.2 K/mm3 (4.0-10.0)
[2019-04-05 08:46] LABS: INR 1.2 (0.83-1.09); PROTHROMBIN TIME (PATIENT) 14.2 SEC (9.7-13.0)
[2019-04-05 08:59] LABS: ALBUMIN 1.8 g/dl (3.4-5.0); BILIRUBIN,TOTAL 1.5 mg/dL (0.2-1); BLOOD UREA NITROGEN 17.7 mg/dL (7-18); CREATININE 0.8 mg/dL (0.55-1.3); MAGNESIUM 2.2 mg/dL (1.8-2.4); PHOSPHOROUS 2.6 mg/dL (2.5-4.9); POTASSIUM 4.2 mmol/L (3.5-5.1); TOT PROT 5.4 g/dl (6.4-8.2)
[2019-04-05] MEDS ORDERED: POLYETHYLENE GLYCOL 3350 119 GM BTL PO SCH (10:00)
[2019-04-05] MEDS: ASPIRIN COATED 81 MG TABLET.EC PO SCH (10:28)
[2019-04-05] MEDS: CLOPIDOGREL BISULFATE 75 MG TABLET (FP) PO SCH (10:28)
[2019-04-05] MEDS: LOSARTAN POTASSIUM 25 MG TABLET PO SCH (10:28)
[2019-04-05] MEDS: ERTAPENEM SODIUM 1 GM in SODIUM CHLORIDE 50 ML IVPB SCH (10:29)
[2019-04-05] MEDS: POLYETHYLENE GLYCOL 3350 119 GM BTL PO SCH (10:29)
[2019-04-05] MEDS ORDERED: BISACODYL 10 MG SUPP.RECT PR ONE (14:51)
--- NOTE | 2019-04-05 15:26 | PN ---
Physical Exam: SUBJECTIVE: Patient seen and examined at the bedside. states pain is controlled. OBJECTIVE: Patient is a 58 year old female with a significant past medical history of poorly controlled IDDM, PAD with claudication s/p revascularization, chronic BLE wounds and HTN. She presents to the ED on 03/27/2019 with acute on chronic worsened right calf pain accompanied with chills. she was admitted for a right fem pop stenosis with planned re-vascularization. Patient is s/p right BKA on with Dr. Jones. Patient also on contact isolation for +uti/esbl. She is s/p two units of prbc. hmg/hct now stable. Vital Signs Period Temp Pulse Resp BP Sys/Zhang Pulse Ox Last 24 Hr 98.1 F-99.7 F 81-92 16-20 137-161/65-95 93-96 GENERAL: The patient is awake, alert, and fully oriented, in no acute distress. HEAD: Normal with no signs of trauma. EYES: PERRL, extraocular movements intact, sclera anicteric, conjunctiva clear. No ptosis. ENT: Ears normal, nares patent, oropharynx clear without exudates, moist mucous membranes. NECK: Trachea midline, full range of motion, supple. LUNGS: Breath sounds equal, clear to auscultation bilaterally, no wheezes HEART: Regular rate and rhythm ABDOMEN: Soft, nontender, nondistended, normoactive bowel sounds, no guarding EXTREMITIES: s/p right BKA, soft immobilizer in place. NEUROLOGICAL: Normal speech, gait not observed. PSYCH: Normal mood, normal affect. Laboratory Results - last 24 hr 04/03/19 04/04/19 04/04/19 17:30 16:37 22:43 WBC RBC Hgb Hct MCV MCH MCHC RDW Plt Count MPV Absolute Neuts (auto) Neutrophils % Lymphocytes % Monocytes % Eosinophils % Basophils % Nucleated RBC % PT with INR INR Sodium Potassium Chloride Carbon Dioxide Anion Gap BUN Creatinine Est GFR (CKD-EPI)AfAm Est GFR (CKD-EPI)NonAf POC Glucometer 118 116 Random Glucose Calcium Phosphorus Magnesium Total Bilirubin AST ALT Alkaline Phosphatase Total Protein Albumin Blood Type O POSITIVE Antibody Screen Negative Crossmatch See Detail 04/05/19 04/05/19 04/05/19 06:07 06:43 06:48 WBC 16.2 H RBC 3.24 L Hgb 9.1 L Hct 27.1 L D MCV 83.7 MCH 28.0 MCHC 33.4 RDW 15.4 Plt Count 290 MPV 8.3 Absolute Neuts (auto) 12.3 H Neutrophils % 75.8 Lymphocytes % 12.3 D Monocytes % 10.7 H Eosinophils % 0.8 D Basophils % 0.4 Nucleated RBC % 0 PT with INR 14.20 H INR 1.20 H Sodium Potassium Chloride Carbon Dioxide Anion Gap BUN Creatinine Est GFR (CKD-EPI)AfAm Est GFR (CKD-EPI)NonAf POC Glucometer 135 Random Glucose Calcium Phosphorus Magnesium Total Bilirubin AST ALT Alkaline Phosphatase Total Protein Albumin Blood Type Antibody Screen Crossmatch 04/05/19 04/05/19 06:48 11:01 WBC RBC Hgb Hct MCV MCH MCHC RDW Plt Count MPV Absolute Neuts (auto) Neutrophils % Lymphocytes % Monocytes % Eosinophils % Basophils % Nucleated RBC % PT with INR INR Sodium 137 Potassium 4.2 Chloride 103 Carbon Dioxide 27 Anion Gap 7 L BUN 17.7 Creatinine 0.8 Est GFR (CKD-EPI)AfAm 94.85 Est GFR (CKD-EPI)NonAf 81.84 POC Glucometer 181 Random Glucose 127 H Calcium 8.0 L Phosphorus 2.6 Magnesium 2.2 Total Bilirubin 1.5 H AST 25 ALT 12 L Alkaline Phosphatase 91 Total Protein 5.4 L Albumin 1.8 L Blood Type Antibody Screen Crossmatch Active Medications Generic Name Dose Route Start Last Admin Trade Name Freq PRN Reason Stop Dose Admin Acetaminophen 650 mg 04/04/19 15:09 04/04/19 15:23 Tylenol - PO 650 mg Q6H PRN Administration FEVER Aspirin 81 mg 04/04/19 10:00 04/05/19 10:28 Ecotrin - PO 81 mg DAILY SEVERIANO Administration Atorvastatin Calcium 80 mg 04/03/19 22:00 04/04/19 22:46 Lipitor - PO 80 mg HS SEVERIANO Administration Clopidogrel Bisulfate 75 mg 04/04/19 10:00 04/05/19 10:28 Plavix - PO 75 mg DAILY SEVERIANO Administration Docusate Sodium 100 mg 04/04/19 22:00 04/05/19 13:10 Colace - PO 100 mg TID SEVERIANO Administration Ertapenem 1 gm/ Sodium 50 mls @ 100 mls/hr 04/04/19 10:00 04/05/19 10:29 Chloride IVPB 100 mls/hr DAILY SEVERIANO Administration Sodium Chloride 1,000 mls @ 75 mls/hr 04/03/19 19:45 04/04/19 23:48 Normal Saline - IV 75 mls/hr ASDIR SEVERIANO Administration Insulin Aspart 1 vial 04/03/19 22:00 04/05/19 11:17 Novolog Vial Sliding Scale - SQ 2 units ACHS SEVERIANO Administration Protocol Insulin Detemir 15 units 04/03/19 22:00 04/05/19 06:12 Levemir Vial SQ 15 units BID@0700,2200 SEVERIANO Administration Losartan Potassium 25 mg 04/04/19 10:00 04/05/19 10:28 Cozaar - PO 25 mg DAILY SEVERIANO Administration Morphine Sulfate 4 mg 04/03/19 18:47 04/04/19 08:37 Morphine Sulfate IVPUSH 4 mg Q4H PRN Administration PAIN LEVEL 1-3 Ondansetron HCl 4 mg 04/03/19 19:45 Zofran Injection IVPUSH Q6H PRN NAUSEA AND/OR VOMITING Oxycodone HCl 5 mg 04/03/19 19:45 04/04/19 22:59 Roxicodone - PO 5 mg Q4H PRN Administration PAIN LEVEL 4 - 6 Oxycodone HCl 10 mg 04/04/19 14:51 04/05/19 06:11 Roxicodone - PO 10 mg Q6H PRN Administration PAIN LEVEL 7 - 10 Polyethylene Glycol 17 gm 04/04/19 23:32 04/05/19 10:29 Miralax (For Daily Use) - PO 17 gm DAILY SEVERIANO Administration ASSESSMENT/PLAN: Problem List - Problems (1) S/P BKA (below knee amputation) unilateral Assessment/Plan: s/p right lower ext BKA for right foot gangrene on ertepenem pain management post op care: incentive spirometer, bowel regimen, vitals sign monitoring, pain control, surgery follow up. Code(s): Z89.519 - ACQUIRED ABSENCE OF UNSPECIFIED LEG BELOW KNEE (2) Gangrene Assessment/Plan: patient is s/p BKA on 04/03/2019 of right lower extremity. pain managed with narcotic pain meds. On plavix/asa Code(s): I96 - GANGRENE, NOT ELSEWHERE CLASSIFIED (3) Leukocytosis Assessment/Plan: wbc trending down Code(s): D72.829 - ELEVATED WHITE BLOOD CELL COUNT, UNSPECIFIED (4) UTI (urinary tract infection) Assessment/Plan: on ertapenem/esbl uti Code(s): N39.0 - URINARY TRACT INFECTION, SITE NOT SPECIFIED (5) Wound of lower extremity Assessment/Plan: s/p BKA with soft immobilizer in place wound care per surgery Code(s): S81.809A - UNSPECIFIED OPEN WOUND, UNSPECIFIED LOWER LEG, INIT ENCNTR (6) PAD (peripheral artery disease) Code(s): I73.9 - PERIPHERAL VASCULAR DISEASE, UNSPECIFIED (7) Gangrene of right foot Code(s): I96 - GANGRENE, NOT ELSEWHERE CLASSIFIED (8) IDDM (insulin dependent diabetes mellitus) Assessment/Plan: hmga1c 10, on novolog monitor bgms ac/hs Code(s): E11.9 - TYPE 2 DIABETES MELLITUS WITHOUT COMPLICATIONS; Z79.4 - LONGTERM (CURRENT) USE OF INSULIN (9) Diabetes mellitus Assessment/Plan: diabetic diet on novolog Code(s): E11.9 - TYPE 2 DIABETES MELLITUS WITHOUT COMPLICATIONS Qualifiers: Diabetes mellitus type: type 2 (10) HTN (hypertension) Assessment/Plan: bp controlled Code(s): I10 - ESSENTIAL (PRIMARY) HYPERTENSION Qualifiers: Hypertension type: essential hypertension Qualified Code(s): I10 - Essential (primary) hypertension (11) Prophylactic measure Assessment/Plan: fen monitor electrolytes diabetic diet bowel regimen on plavix and asa 81mg SCDs on left leg full code Code(s): Z29.9 - ENCOUNTER FOR PROPHYLACTIC MEASURES, UNSPECIFIED Visit type - Emergency Visit Emergency Visit: Yes ED Registration Date: 03/27/19 Care time: The patient presented to the Emergency Department on the above date and was hospitalized for further evaluation of their emergent condition. - New Patient This patient is new to me today: No - Critical Care Critical Care patient: No - Discharge Referral Referred to [facility] Med P.C.: No
[2019-04-05] MEDS: SODIUM CHLORIDE 1,000 ML IV SCH (20:18)
[2019-04-05] MEDS: ATORVASTATIN CA 80 MG TABLET (FP) PO SCH (22:21)
[2019-04-05] MEDS: HEPARIN NA (PORCINE) 5,000 UNITS/ML 1ML VIAL SQ SCH (22:21)
[2019-04-06] MEDS: DOCUSATE SODIUM 100 MG CAPSULE (FP) PO SCH ×3 (06:26→21:13)
[2019-04-06] MEDS: INSULIN (LEVEMIR) 100 UNITS/ML UNITS SQ SCH ×2 (06:26→21:14)
[2019-04-06] MEDS: INSULIN SLIDING SCALE (NOVOLOG) 1 VIAL SQ SCH ×4 (06:30→21:14)
--- NOTE | 2019-04-06 08:16 | PN ---
Progress Note (short form) - Note Progress Note: surgery POD #2 right BKA seen and examined at bedside. patient states she feels well and denies any new or worsening symptoms. She is tolerating her diet, voiding and denies any SOB, N/V, fever or chills. Vital Signs Temp 98.1 F 04/06/19 14:18 Pulse 80 04/06/19 14:18 Resp 18 04/06/19 14:18 BP 147/58 L 04/06/19 14:18 Pulse Ox 96 04/05/19 20:29 Intake & Output 04/05/19 0204/06/19 23:59 11:59 23:59 Intake Total 1979 1520 Balance 1979 1520 Intake: IV 1050 600 Normal Saline - 1,000 ml 1050 600 @ 75 mls/hr IV ASDIR SEVERIANO Rx#:[id number] IVPB 100 Oral 200 200 Oral Supplement 630 720 Other: Voiding Method Bedpan Bedpan # Unmeasured Voids Void 2 Bowel Movement Yes No # Bowel Movements 2 CBC, BMP 04/06/19 10:40 04/06/19 10:40 PE: A&Ox3, NAD Unlabored resp on RA Right LE thigh and LE compartments soft, supple with minimal edema with moderate TTP throughout, stump incision c/d/i with misti insitu. no ecchymosis or tracking erythema, no evidence of collection or active d/c. Left LE: well healed 1st and 2nd toe amputations with chronic calus over area of 5th toe ray amputation and fungating calus over the plantar surface just inferior to the MTP joints with a small wound in the center of the wound- firbinous exudate seen with no evidence of puss/ collection, tracking erythema or sinus track. Chronic stage 3 pressure ulcer at plantar surface of heel @ 2x2cm with red granulating tissue and well defined boarders surrounding by chronic callus. no active d/c or foul odor. foot is warm to touch. Chronic skin changes seen throughout. Problem List - Problems (1) S/P BKA (below knee amputation) unilateral Assessment/Plan: POD #3 BKA and left chronic foot wound doing well. -Continue knee immobilizer -Patient will need PT - ok for gentle AROM at knee while in bed -DVT/GI prophylaxis -misti to be removed in 2 weeks -Stump dressing changes PRN -Left foot- soak and debride loose skin. Algenate QOD -f/u with Dr Jones as outpatient. -D/c planning to rehab Code(s): Z89.519 - ACQUIRED ABSENCE OF UNSPECIFIED LEG BELOW KNEE (2) Wound of lower extremity Problems reviewed: Yes Code(s): S81.809A - UNSPECIFIED OPEN WOUND, UNSPECIFIED LOWER LEG, INIT ENCNTR (3) Pressure ulcer of left heel, stage 3 Code(s): L89.623 - PRESSURE ULCER OF LEFT HEEL, STAGE 3
[2019-04-06] MEDS: oxyCODONE HCL 5 MG TABLET PO PRN ×2 (08:20→19:40)
[2019-04-06] MEDS ORDERED: PT OWN MED DRAWER 7, Y5N ONE ×2 (09:19→20:06)
[2019-04-06] MEDS: LOSARTAN POTASSIUM 25 MG TABLET PO SCH (09:28)
[2019-04-06] MEDS: ASPIRIN COATED 81 MG TABLET.EC PO SCH (09:29)
[2019-04-06] MEDS: HEPARIN NA (PORCINE) 5,000 UNITS/ML 1ML VIAL SQ SCH ×2 (09:29→21:14)
[2019-04-06] MEDS: CLOPIDOGREL BISULFATE 75 MG TABLET (FP) PO SCH (09:30)
[2019-04-06] MEDS: ERTAPENEM SODIUM 1 GM in SODIUM CHLORIDE 50 ML IVPB SCH (09:31)
[2019-04-06] MEDS: POLYETHYLENE GLYCOL 3350 119 GM BTL PO SCH (09:33)
[2019-04-06] MEDS: SODIUM CHLORIDE 1,000 ML IV SCH (09:37)
[2019-04-06 11:26] LABS: BASO % 0.4 % (0-2.0); EOS % 1.9 % (0-4.5); HEMATOCRIT 26.2 % (32.4-45.2); HEMOGLOBIN 8.8 GM/dL (10.7-15.3); LYMPH % 14.4 % (8-40); MCH 28.2 pg (25.7-33.7); MCHC 33.5 g/dl (32.0-36.0); MEAN PLT VOLUME 8.3 fl (7.5-11.1); NEUT % 74.3 % (42.8-82.8); PLATELET COUNT 348 K/MM3 (134-434); RBC 3.12 M/mm3 (3.60-5.2); RDW 16.1 % (11.6-15.6); WHITE BLOOD COUNT 15.4 K/mm3 (4.0-10.0)
[2019-04-06 11:52] LABS: ALBUMIN 1.7 g/dl (3.4-5.0); BILIRUBIN,TOTAL 0.6 mg/dL (0.2-1); CALCIUM 8.3 mg/dL (8.5-10.1); CREATININE 1.4 mg/dL (0.55-1.3); MAGNESIUM 2.3 mg/dL (1.8-2.4); PHOSPHOROUS 3.3 mg/dL (2.5-4.9); POTASSIUM 4.5 mmol/L (3.5-5.1); TOT PROT 5.9 g/dl (6.4-8.2)
--- NOTE | 2019-04-06 14:11 | DS ---
Physical Exam: SUBJECTIVE: Patient seen and examined at the bedside. for discharge to [facility] once bed is available. OBJECTIVE: Patient has completed Ertapenem wound care per surgery ------ Patient is a 58 year old female with a significant past medical history of poorly controlled IDDM, PAD with claudication s/p revascularization, chronic BLE wounds and HTN. She presents to the ED on 03/27/2019 with acute on chronic worsened right calf pain accompanied with chills. she was admitted for a right fem pop stenosis with planned re-vascularization. Patient is s/p right BKA on with Dr. Jones. Patient also on contact isolation for +uti/esbl and has completed Ertapenem. She is for discharge to rehab once bed is available at [facility]. She is s/p two units of prbc. hmg/hct now stable. see problem list below: Vital Signs Period Temp Pulse Resp BP Sys/Zhang Pulse Ox Last 24 Hr 97.8 F-98.1 F 81-84 18-20 121-159/59-76 96 PHYSICAL EXAM GENERAL: The patient is awake, alert, and fully oriented, in no acute distress. HEAD: Normal with no signs of trauma. EYES: PERRL, extraocular movements intact, sclera anicteric, conjunctiva clear. No ptosis. ENT: Ears normal, nares patent, oropharynx clear without exudates, moist mucous membranes. NECK: Trachea midline, full range of motion, supple. LUNGS: Breath sounds equal, clear to auscultation bilaterally, no wheezes HEART: Regular rate and rhythm ABDOMEN: Soft, nontender, nondistended, normoactive bowel sounds, no guarding EXTREMITIES: s/p right BKA, soft immobilizer in place. NEUROLOGICAL: Normal speech, gait not observed. PSYCH: Normal mood, normal affect. LABS Laboratory Results - last 24 hr 04/05/19 04/05/19 04/06/19 16:03 22:31 06:28 WBC RBC Hgb Hct MCV MCH MCHC RDW Plt Count MPV Absolute Neuts (auto) Neutrophils % Lymphocytes % Monocytes % Eosinophils % Basophils % Nucleated RBC % Sodium Potassium Chloride Carbon Dioxide Anion Gap BUN Creatinine Est GFR (CKD-EPI)AfAm Est GFR (CKD-EPI)NonAf POC Glucometer 191 234 133 Random Glucose Calcium Phosphorus Magnesium Total Bilirubin AST ALT Alkaline Phosphatase Total Protein Albumin 04/06/19 04/06/19 04/06/19 10:40 10:40 11:17 WBC 15.4 H RBC 3.12 L Hgb 8.8 L Hct 26.2 L MCV 84.0 MCH 28.2 MCHC 33.5 RDW 16.1 H Plt Count 348 MPV 8.3 Absolute Neuts (auto) 11.4 H Neutrophils % 74.3 Lymphocytes % 14.4 Monocytes % 9.0 Eosinophils % 1.9 D Basophils % 0.4 Nucleated RBC % 0 Sodium 138 Potassium 4.5 Chloride 104 Carbon Dioxide 25 Anion Gap 9 BUN 23.0 H Creatinine 1.4 H Est GFR (CKD-EPI)AfAm 48.22 Est GFR (CKD-EPI)NonAf 41.60 POC Glucometer 138 Random Glucose 134 H Calcium 8.3 L Phosphorus 3.3 Magnesium 2.3 Total Bilirubin 0.6 AST 22 ALT 11 L Alkaline Phosphatase 105 Total Protein 5.9 L Albumin 1.7 L HOSPITAL COURSE: Date of Admission:03/27/19 Date of Discharge: 04/06/19 Minutes to complete discharge: 45 Discharge Summary Problems reviewed: Yes Reason For Visit: ISCHEMIC PAIN OF FOOT AT REST Current Active Problems ESBL E. coli carrier (Acute) Leg pain (Acute) Leukocytosis (Acute) Occlusion of stent of peripheral artery (Acute) Prophylactic measure (Acute) S/P BKA (below knee amputation) unilateral (Acute) UTI (urinary tract infection) (Acute) Wound of lower extremity (Acute) PAD (peripheral artery disease) (Chronic) Condition: Fair - Instructions Diet, Activity, Other Instructions: discharge to rehab Referrals: Jordan Samuels MD [Primary Care Provider] - Gen Jones DO [Staff Physician] - Disposition: [facility]ILITY - Home Medications Comprehensive Discharge Medication List: Ambulatory Orders Acetaminophen [Tylenol .Regular Strength -] 650 mg PO Q6H PRN tablet 04/06/19 Aspirin Coated [Ecotrin -] 81 mg PO DAILY tablet.ec 04/06/19 Atorvastatin Ca [Lipitor] 80 mg PO HS tablet 04/06/19 Clopidogrel Bisulfate [Plavix -] 75 mg PO DAILY tablet 04/06/19 Docusate Sodium [Colace -] 100 mg PO TID capsule 04/06/19 Heparin - 5,000 unit SQ BID vial 04/06/19 Insulin (Levemir) [Levemir Vial] 15 units SQ BID@0700,2200 units 04/06/19 Insulin Sliding Scale [Novolog Vial Sliding Scale -] 1 vial SQ ACHS units 04/06 Losartan Potassium [Cozaar -] 25 mg PO DAILY tablet 04/06/19 Polyethylene Glycol 3350 [Miralax 119 gm Btl -] 17 gm PO DAILY bottle 04/06/19 Polyethylene Glycol 3350 [Miralax 119 gm Btl -] 17 gm PO DAILY bottle 04/06/19 Problem List - Problems (1) S/P BKA (below knee amputation) unilateral Assessment/Plan: s/p right lower ext BKA for right foot gangrene pain management with oxycodone post op care: incentive spirometer, bowel regimen, vitals sign monitoring, pain control, surgery follow up. for discharge to rehab. Code(s): Z89.519 - ACQUIRED ABSENCE OF UNSPECIFIED LEG BELOW KNEE (2) Gangrene Assessment/Plan: patient is s/p BKA on 04/03/2019 of right lower extremity. pain managed with narcotic pain meds. On plavix/asa Code(s): I96 - GANGRENE, NOT ELSEWHERE CLASSIFIED (3) Leukocytosis Assessment/Plan: wbc trending down Code(s): D72.829 - ELEVATED WHITE BLOOD CELL COUNT, UNSPECIFIED (4) UTI (urinary tract infection) Assessment/Plan: she has completed Ertapenem Code(s): N39.0 - URINARY TRACT INFECTION, SITE NOT SPECIFIED (5) Wound of lower extremity Assessment/Plan: s/p BKA with soft immobilizer in place wound care per surgery Code(s): S81.809A - UNSPECIFIED OPEN WOUND, UNSPECIFIED LOWER LEG, INIT ENCNTR (6) PAD (peripheral artery disease) Code(s): I73.9 - PERIPHERAL VASCULAR DISEASE, UNSPECIFIED (7) Gangrene of right foot Code(s): I96 - GANGRENE, NOT ELSEWHERE CLASSIFIED (8) IDDM (insulin dependent diabetes mellitus) Assessment/Plan: hmga1c 10, on novolog monitor bgms ac/hs Code(s): E11.9 - TYPE 2 DIABETES MELLITUS WITHOUT COMPLICATIONS; Z79.4 - DOCK [employer] (CURRENT) USE OF INSULIN (9) Diabetes mellitus Assessment/Plan: diabetic diet on novolog Code(s): E11.9 - TYPE 2 DIABETES MELLITUS WITHOUT COMPLICATIONS Qualifiers: Diabetes mellitus type: type 2 (10) HTN (hypertension) Assessment/Plan: bp controlled Code(s): I10 - ESSENTIAL (PRIMARY) HYPERTENSION Qualifiers: Hypertension type: essential hypertension Qualified Code(s): I10 - Essential (primary) hypertension (11) Prophylactic measure Assessment/Plan: fen monitor electrolytes diabetic diet bowel regimen on plavix and asa 81mg SCDs on left leg full code discharge planning Code(s): Z29.9 - ENCOUNTER FOR PROPHYLACTIC MEASURES, UNSPECIFIED This patient is new to me today: No Emergency Visit: Yes ED Registration Date: 03/27/19 Care time: The patient presented to the Emergency Department on the above date and was hospitalized for further evaluation of their emergent condition. Critical Care patient: No - Discharge Referral Referred to [facility] Med P.C.: No
--- NOTE | 2019-04-06 15:36 | PATH ---
Surgical Pathology Report Patient Name: YAMIL LEWIS [facility]. Rec. #: [id number] /Age/Gender: 1960 (Age: 58) / F Account: [id number] Location: [address] [place] [address]/[facility] Taken: 04/03/2019 Received: 04/04/2019 Reported: 04/06/2019 Physicians: Gen Jones Specimen(s) Received RIGHT LOWER EXTREMITY Clinical History Ischemic pain, right foot Final Diagnosis LOWER EXTREMITY, RIGHT, BELOW THE KNEE AMPUTATION: GANGRENOUS NECROSIS INVOLVING PREVIOUS AMPUTATION SITE, REMAINING DIGITS OF FOOT, AND UNDERLYING BONE. ACUTE OSTEOMYELITIS. FOCAL SEGMENTAL MODERATE TO SEVERE ATHEROSCLEROSIS. SURGICAL MARGINS ARE VIABLE. Electronically Signed Tabatha Milligan M.D. Gross Description Received fresh labeled "right lower extremity," is a 24 cm in length product of a right below the knee amputation. The foot measures 22 cm from heel to toe. There is a 5 cm in the length exposed portion of tibia and fibula at the proximal aspect of the specimen. The third digit appears to have been previously amputated. There is a 4.7 x 3.0 cm black, gangrenous lesion involving the previous amputation site as well as the remaining digits. The lesion involves the underlying bone. Sectioning of the vasculature reveals focal, segmental, mild atherosclerosis. Cutter Hot Knife sections are submitted in 6 cassettes as follows: 1-lesion with underlying bone, following decalcification; 2-bone margin, following decalcification; 3-skin and soft tissue margin; 4-anterior tibial artery; 5-posterior tibial artery; 6-dorsalis pedis. /04/04/2019 [facility]/04/04/2019
--- NOTE | 2019-04-06 16:12 | PN ---
Progress Note (short form) - Note Progress Note: s/p BKA-pod #3 abdominal pain resolving with BM- constipation improved no dysuria no cough Vital Signs Period Temp Pulse Resp BP Sys/Zhang Pulse Ox Last 24 Hr 97.8 F-98.1 F 80-84 18-20 121-147/58-73 96 cor-rrr lungs clear abd soft, +BS ext dressing intact (evaluated by surgery this am) CBC, BMP 04/06/19 10:40 04/06/19 10:40 Microbiology 03/27/19 10:36 Blood - Peripheral Venous Blood Culture - Final NO GROWTH AFTER 5 DAYS INCUBATION 03/27/19 10:30 Blood - Peripheral Venous Blood Culture - Final NO GROWTH AFTER 5 DAYS INCUBATION 03/27/19 13:45 Urine - Urine Clean Catch Urine Culture - Final Klebsiella Pneumoniae - Esbl a/p pod#3 right BKA leukocytosis- ?secondary to anemia s/p bka yesterday anemia- transfusion kleb uti-day #10 ertapenem- will d/c antibiotics continue contact isolation vascular f/u per dr kang please call back if needed Problem List - Problems (1) Gangrene of right foot Code(s): I96 - GANGRENE, NOT ELSEWHERE CLASSIFIED (2) Ischemic foot pain at rest Code(s): I73.9 - PERIPHERAL VASCULAR DISEASE, UNSPECIFIED (3) UTI (urinary tract infection) Code(s): N39.0 - URINARY TRACT INFECTION, SITE NOT SPECIFIED (4) ESBL E. coli carrier Code(s): Z22.39 - CARRIER OF OTHER SPECIFIED BACTERIAL DISEASES
[2019-04-06] MEDS ORDERED: INSULIN (NOVOLOG) ASPART 100 UNITS/ML 10ML VIAL ONE (20:07)
[2019-04-06] MEDS: ATORVASTATIN CA 80 MG TABLET (FP) PO SCH (21:13)
[2019-04-07] MEDS: INSULIN (LEVEMIR) 100 UNITS/ML UNITS SQ SCH (06:20)
[2019-04-07] MEDS: INSULIN SLIDING SCALE (NOVOLOG) 1 VIAL SQ SCH ×2 (06:20→11:57)
[2019-04-07] MEDS: DOCUSATE SODIUM 100 MG CAPSULE (FP) PO SCH ×2 (06:20→14:39)
[2019-04-07] MEDS ORDERED: INSULIN (LEVEMIR) 100 UNITS/ML UNITS SQ ONE (06:58)
[2019-04-07 08:17] VITALS: PULSE 84
--- NOTE | 2019-04-07 09:46 | PN ---
Physical Exam: SUBJECTIVE: Patient seen and examined, she reports that she had a loose bm overnight, not diarrhea. She is in agreement to go to [facility]. OBJECTIVE: Patient has completed Ertapenem wound care per surgery ------ Patient is a 58 year old female with a significant past medical history of poorly controlled IDDM, PAD with claudication s/p revascularization, chronic BLE wounds and HTN. She presents to the ED on 03/27/2019 with acute on chronic worsened right calf pain accompanied with chills. she was admitted for a right fem pop stenosis with planned re-vascularization. Patient is s/p right BKA on with Dr. Jones. Patient also on contact isolation for +uti/esbl and has completed Ertapenem. She is for discharge to rehab once bed is available at [facility]. She is s/p two units of prbc. hmg/hct now stable. Vital Signs Period Temp Pulse Resp BP Sys/Zhang Pulse Ox Last 24 Hr 98.1 F-99.6 F 80-90 18-19 136-151/58-76 96 GENERAL: The patient is awake, alert, and fully oriented, in no acute distress. HEAD: Normal with no signs of trauma. EYES: PERRL, extraocular movements intact, sclera anicteric, conjunctiva clear. No ptosis. ENT: Ears normal, nares patent, oropharynx clear without exudates, moist mucous membranes. NECK: Trachea midline, full range of motion, supple. LUNGS: Breath sounds equal, clear to auscultation bilaterally, no wheezes HEART: Regular rate and rhythm ABDOMEN: Soft, nontender, nondistended, normoactive bowel sounds, no guarding EXTREMITIES: s/p right BKA, soft immobilizer in place. NEUROLOGICAL: Normal speech, gait not observed. PSYCH: Normal mood, normal affect. Laboratory Results - last 24 hr 04/06/19 04/06/19 04/06/19 10:40 10:40 11:17 WBC 15.4 H RBC 3.12 L Hgb 8.8 L Hct 26.2 L MCV 84.0 MCH 28.2 MCHC 33.5 RDW 16.1 H Plt Count 348 MPV 8.3 Absolute Neuts (auto) 11.4 H Neutrophils % 74.3 Lymphocytes % 14.4 Monocytes % 9.0 Eosinophils % 1.9 D Basophils % 0.4 Nucleated RBC % 0 Sodium 138 Potassium 4.5 Chloride 104 Carbon Dioxide 25 Anion Gap 9 BUN 23.0 H Creatinine 1.4 H Est GFR (CKD-EPI)AfAm 48.22 Est GFR (CKD-EPI)NonAf 41.60 POC Glucometer 138 Random Glucose 134 H Calcium 8.3 L Phosphorus 3.3 Magnesium 2.3 Total Bilirubin 0.6 AST 22 ALT 11 L Alkaline Phosphatase 105 Total Protein 5.9 L Albumin 1.7 L 04/06/19 04/06/19 04/07/19 16:32 21:10 06:07 WBC RBC Hgb Hct MCV MCH MCHC RDW Plt Count MPV Absolute Neuts (auto) Neutrophils % Lymphocytes % Monocytes % Eosinophils % Basophils % Nucleated RBC % Sodium Potassium Chloride Carbon Dioxide Anion Gap BUN Creatinine Est GFR (CKD-EPI)AfAm Est GFR (CKD-EPI)NonAf POC Glucometer 145 161 116 Random Glucose Calcium Phosphorus Magnesium Total Bilirubin AST ALT Alkaline Phosphatase Total Protein Albumin Active Medications Generic Name Dose Route Start Last Admin Trade Name Freq PRN Reason Stop Dose Admin Acetaminophen 650 mg 04/04/19 15:09 04/04/19 15:23 Tylenol - PO 650 mg Q6H PRN Administration FEVER Aspirin 81 mg 04/04/19 10:00 04/06/19 09:29 Ecotrin - PO 81 mg DAILY SEVERIANO Administration Atorvastatin Calcium 80 mg 04/03/19 22:00 04/06/19 21:13 Lipitor - PO 80 mg HS SEVERIANO Administration Clopidogrel Bisulfate 75 mg 04/04/19 10:00 04/06/19 09:30 Plavix - PO 75 mg DAILY SEVERIANO Administration Docusate Sodium 100 mg 04/04/19 22:00 04/07/19 06:20 Colace - PO 100 mg TID SEVERIANO Administration Heparin Sodium (Porcine) 5,000 unit 04/05/19 22:00 04/06/19 21:14 Heparin - SQ 5,000 unit BID SEVERIANO Administration Insulin Aspart 1 vial 04/03/19 22:00 04/07/19 06:20 Novolog Vial Sliding Scale - SQ Not Given ACHS [facility] Protocol Insulin Detemir 15 units 04/03/19 22:00 04/07/19 06:20 Levemir Vial SQ 15 units BID@0700,2200 SEVERIANO Administration Losartan Potassium 25 mg 04/04/19 10:00 04/06/19 09:28 Cozaar - PO 25 mg DAILY SEVERIANO Administration Ondansetron HCl 4 mg 04/03/19 19:45 Zofran Injection IVPUSH Q6H PRN NAUSEA AND/OR VOMITING Oxycodone HCl 5 mg 04/03/19 19:45 04/04/19 22:59 Roxicodone - PO 5 mg Q4H PRN Administration PAIN LEVEL 4 - 6 Oxycodone HCl 10 mg 04/04/19 14:51 04/06/19 19:40 Roxicodone - PO 10 mg Q6H PRN Administration PAIN LEVEL 7 - 10 Polyethylene Glycol 17 gm 04/04/19 23:32 04/06/19 09:33 Miralax (For Daily Use) - PO 17 gm DAILY SEVERIANO Administration ASSESSMENT/PLAN: Problem List - Problems (1) S/P BKA (below knee amputation) unilateral Assessment/Plan: s/p right lower ext BKA for right foot gangrene pain management with oxycodone post op care: incentive spirometer, bowel regimen, vitals sign monitoring, pain control, surgery follow up. for discharge to rehab. Code(s): Z89.519 - ACQUIRED ABSENCE OF UNSPECIFIED LEG BELOW KNEE (2) Gangrene Assessment/Plan: patient is s/p BKA on 04/03/2019 of right lower extremity. pain managed with narcotic pain meds. On plavix/asa Code(s): I96 - GANGRENE, NOT ELSEWHERE CLASSIFIED (3) Leukocytosis Assessment/Plan: wbc trending down Code(s): D72.829 - ELEVATED WHITE BLOOD CELL COUNT, UNSPECIFIED (4) UTI (urinary tract infection) Assessment/Plan: she has completed Ertapenem Code(s): N39.0 - URINARY TRACT INFECTION, SITE NOT SPECIFIED (5) Wound of lower extremity Assessment/Plan: s/p BKA with soft immobilizer in place wound care per surgery Code(s): S81.809A - UNSPECIFIED OPEN WOUND, UNSPECIFIED LOWER LEG, INIT ENCNTR (6) PAD (peripheral artery disease) Code(s): I73.9 - PERIPHERAL VASCULAR DISEASE, UNSPECIFIED (7) Gangrene of right foot Code(s): I96 - GANGRENE, NOT ELSEWHERE CLASSIFIED (8) IDDM (insulin dependent diabetes mellitus) Assessment/Plan: hmga1c 10, on novolog monitor bgms ac/hs Code(s): E11.9 - TYPE 2 DIABETES MELLITUS WITHOUT COMPLICATIONS; Z79.4 - GROUP HOME (CURRENT) USE OF INSULIN (9) Diabetes mellitus Assessment/Plan: diabetic diet on novolog Code(s): E11.9 - TYPE 2 DIABETES MELLITUS WITHOUT COMPLICATIONS Qualifiers: Diabetes mellitus type: type 2 (10) HTN (hypertension) Assessment/Plan: bp controlled Code(s): I10 - ESSENTIAL (PRIMARY) HYPERTENSION Qualifiers: Hypertension type: essential hypertension Qualified Code(s): I10 - Essential (primary) hypertension (11) Prophylactic measure Assessment/Plan: fen monitor electrolytes diabetic diet bowel regimen on plavix and asa 81mg SCDs on left leg full code discharge planning Code(s): Z29.9 - ENCOUNTER FOR PROPHYLACTIC MEASURES, UNSPECIFIED Visit type - Emergency Visit Emergency Visit: Yes ED Registration Date: 03/27/19 Care time: The patient presented to the Emergency Department on the above date and was hospitalized for further evaluation of their emergent condition. - New Patient This patient is new to me today: No - Critical Care Critical Care patient: No - Discharge Referral Referred to [facility] Med P.C.: No
[2019-04-07] MEDS: CLOPIDOGREL BISULFATE 75 MG TABLET (FP) PO SCH (10:10)
[2019-04-07] MEDS: LOSARTAN POTASSIUM 25 MG TABLET PO SCH (10:10)
[2019-04-07] MEDS: HEPARIN NA (PORCINE) 5,000 UNITS/ML 1ML VIAL SQ SCH (10:10)
[2019-04-07] MEDS: oxyCODONE HCL 5 MG TABLET PO PRN (10:10)
[2019-04-07] MEDS: ASPIRIN COATED 81 MG TABLET.EC PO SCH (10:11)
[2019-04-07] MEDS: POLYETHYLENE GLYCOL 3350 119 GM BTL PO SCH (10:13)
[2019-04-07 10:53] VITALS: BP 154/75; TEMP 98.8
[2019-04-07 12:34] LABS: BASO % 0.4 % (0-2.0); EOS % 2.2 % (0-4.5); HEMATOCRIT 26.3 % (32.4-45.2); HEMOGLOBIN 8.6 GM/dL (10.7-15.3); LYMPH % 13.4 % (8-40); MCH 27.7 pg (25.7-33.7); MCHC 32.8 g/dl (32.0-36.0); MEAN CELL VOLUME 84.5 fl (80-96); MEAN PLT VOLUME 8.1 fl (7.5-11.1); MONO % 7.3 % (3.8-10.2); NEUT % 76.7 % (42.8-82.8); PLATELET COUNT 360 K/MM3 (134-434); RBC 3.11 M/mm3 (3.60-5.2); RDW 16.3 % (11.6-15.6); WHITE BLOOD COUNT 11.1 K/mm3 (4.0-10.0)
[2019-04-07 13:03] LABS: ALBUMIN 1.7 g/dl (3.4-5.0); BILIRUBIN,TOTAL 0.6 mg/dL (0.2-1); BLOOD UREA NITROGEN 31.9 mg/dL (7-18); CALCIUM 8.5 mg/dL (8.5-10.1); CREATININE 1.8 mg/dL (0.55-1.3); MAGNESIUM 2.3 mg/dL (1.8-2.4); POTASSIUM 4.9 mmol/L (3.5-5.1); TOT PROT 5.7 g/dl (6.4-8.2)
--- NOTE | 2019-04-10 15:46 | OP ---
DATE OF OPERATION: 03/29/2019 PREOPERATIVE DIAGNOSIS: Right foot gangrene. POSTOPERATIVE DIAGNOSIS: Right foot gangrene. PROCEDURES: Aortogram, right lower extremity angiogram, superficial femoral artery angioplasty. SURGEON: Gen Hadley DO ANESTHESIA: Fractional. BLOOD LOSS: 50 mL. INDICATION FOR PROCEDURE: Patient is a 58-year-old, female that has right foot gangrene. It was decided that she would need an angiogram. She has distal SFA severe stenosis. Patient was consented for the procedure, understanding all risks, benefits, and alternatives, then taken to the operating room. DESCRIPTION OF PROCEDURE: Once in the operating room, was laid on the operating table in a supine manner, and the area of the right and left groin was prepped and draped in a sterile surgical manner. We then injected 10 mL of lidocaine 1% over the left common femoral artery, then used our Micropuncture needle to puncture the left common femoral artery. Micropuncture wire was inserted. Micropuncture sheath was inserted. A 0.035 floppy guide wire was inserted and a traditional 5-German sheath was inserted. We then placed a wire up into the aorta, followed by an Omni Flush catheter. We then shot an aortogram via hand injection, showing that the aorta and iliac arteries were without any disease. We then used our 0.035 floppy guide wire and went up and over to the right common femoral artery and Omni Flush catheter followed. We then shot an angiogram of the right lower extremity, showing that the common femoral artery, the profunda, and the proximal SFA were patent, the distal SFA had a severe stenosis of about 80% to 90%, popliteal artery was patent, and patient had 1-vessel runoff in the form of AT going down into the forefoot. At this point, we placed a 0.035 stiff guide wire into the SFA. Omni Flush catheter was removed. A 6 x 45 Crossover sheath was placed and 5000 units of IV heparin were administered to the patient. We then brought our 0.035 stiff guide wire down to the distal SFA where using a Quick-Cross catheter, we were able to cross our lesion. We then went ahead and used a 6 x 8 Ultraverse balloon and performed angioplasty of the distal SFA. Completion angiogram now showed that the SFA was patent, there was no dissection, there was good, brisk flow all the way down into the foot in the form of the AT, the DP comes into the foot, but it only comes to the proximal forefoot, and after that there is microvascular disease in the foot. At this point, no more intervention was needed. We brought our sheath up, and over, and out. StarClose device was successfully deployed in the left common femoral artery. Pressure was held for 5 minutes. After there was no more bleeding, area was and dried and Dermabond was placed. Patient tolerated procedure with no complications. Patient transferred to PACU in stable condition. GEN HADLEY DO NP/[id number]
--- NOTE | 2019-04-18 18:28 | OP ---
DATE OF OPERATION: 04/03/2019 PREOPERATIVE DIAGNOSIS: Right foot gangrene. POSTOPERATIVE DIAGNOSIS: Right foot gangrene. PROCEDURE: Right below-knee amputation. SURGEON: Gen Hadley DO ANESTHESIA: General. BLOOD LOSS: 150 mL. HISTORY: Patient is a 58-year-old female who has right foot gangrene. She has had multiple angioplasties and stents placed, but she has small-vessel disease in her foot, and she has had gangrene of all her toes for a very long time. It was decided that she would need a BKA. The patient was already admitted to the hospital. The patient was medically and cardiology cleared. The patient was consented for the procedure understanding all risks, benefits, and alternatives and was then brought to the operating room. DESCRIPTION OF PROCEDURE: Once in the operating room, was laid on the operating room table in supine manner, and the area of the right leg was prepped and draped in a sterile surgical manner. General anesthesia was administered to patient. We then went 4 fingerbreadths below the tibial tuberosity and sudarshan a step off incision to create our flap using a skin marker. We then went ahead and used a No. 15 blade and cut along our skin marker incision that was marked. We used Bovie electrocautery to control hemostasis, and we were able to get down through all of the subcutaneous tissue and get down to the tibia. We were then able to take down all the muscles using Bovie electrocautery. We were then able to use a right angle and dissect out our anterior tibial artery and vein, and those were clamped and suture ligated using 0 silk. We then went ahead and using Bovie electrocautery got down to the fibula. Fibula was dissected anteriorly, posteriorly, and using a [place] elevator, we were able to get more space on the fibula. We then were able to take down the soleus muscle using Bovie electrocautery, and we got down to our posterior tibial artery. Posterior tibial artery was dissected anteriorly and posteriorly along with the vein, and the vein and artery were then suture ligated using 0 silk. We then went deeper and went under the tibia and got down to the peroneal artery. Peroneal artery and vein were dissected anteriorly, posteriorly, and they were clamped and suture ligated using 0 silk. We then went ahead and went posteriorly, and using Bovie electrocautery, we were able to take down our Achilles tendon and all attachments to the flap. At this point, we then took our bone saw, and we transected the tibia and the fibula 1 cm above the tibia. At this point, we then used Bovie electrocautery to control hemostasis. The leg was sent to Pathology. The wound was then well irrigated. We then went ahead and used our saw, and we beveled our tibia. We then went ahead and irrigated the wound copiously. We then used 2-0 Vicryl, and the fascia was approximated in an interrupted manner, and the skin was closed with skin misti. Area was wet and dried. Xeroform, 4 x 4s, ABD pads, Kerlix, and Coban were placed. Patient's leg was placed in a knee immobilizer. Patient tolerated procedure with no complications. Patient transferred to PACU in stable condition. Total blood loss 150 mL. GEN HADLEY DO [id number]
== END 2019-04-07 17:45 | DRG 181 ==
LOC: JER 09:35 → JERBED 14:16 → J6S 17:37
PROVIDERS: ATTEND Nurse Practitioner Family
PROC: 047K3ZZ Dilation of Right Femoral Artery, Percutaneous Approach (ICD-10-PCS; 2019-03-29)
PROC: B40DYZZ Plain Radiography of Aorta and Bilateral Lower Extremity Arteries using Other Contrast (ICD-10-PCS; 2019-03-29)
PROC: 0Y6H0Z1 Detachment at Right Lower Leg, High, Open Approach (ICD-10-PCS; principal; 2019-04-03 16:00)
PROC: 30233N1 Transfusion of Nonautologous Red Blood Cells into Peripheral Vein, Percutaneous Approach (ICD-10-PCS; 2019-04-04)
DX: E11.52 Type 2 diabetes mellitus with diabetic peripheral angiopathy with gangrene (principal); E11.65 Type 2 diabetes mellitus with hyperglycemia; I77.1 Stricture of artery; N39.0 Urinary tract infection, site not specified; I70.261 Atherosclerosis of native arteries of extremities with gangrene, right leg; M86.171 Other acute osteomyelitis, right ankle and foot; E11.69 Type 2 diabetes mellitus with other specified complication; D72.829 Elevated white blood cell count, unspecified; D64.9 Anemia, unspecified; T82.856A Stenosis of peripheral vascular stent, initial encounter; E11.621 Type 2 diabetes mellitus with foot ulcer; I10 Essential (primary) hypertension; Z16.12 Extended spectrum beta lactamase (ESBL) resistance; B96.20 Unspecified Escherichia coli [E. coli] as the cause of diseases classified elsewhere; I77.89 Other specified disorders of arteries and arterioles; B96.1 Klebsiella pneumoniae [K. pneumoniae] as the cause of diseases classified elsewhere
CPT/HCPCS: 36415; 36430; 36511; 71045-TC-FY; 75635-TC; 76000-TC-FY; 80048; 80053; 80061; 81003; 82550; 82553; 82803; 82962; 83036; 83605; 83721; 83735; 84100; 84484; 85025; 85027; 85610; 85730; 86850; 86900; 86901; 86922; 87040; 87086; 87186; 88307-TC; 88311-TC; 93005; 93010; 94010; 94760; 97162-GP; 99291; J0131; J1644; J7030; P9038; P9058; Q9967